=== PATIENT | female | born 1935 | race Caucasian/White ===

== ENCOUNTER 2016-06-20 09:46 | Emergency (ER) | payer MEDICARE, OTHER ==
[~2016-06-20] VITALS: Ht 152.4 cm; Wt 88.9 kg
[~2016-06-20 09:46] MED LIST changes: -CEFU250T80 PO
--- OUTSIDE RECORDS SUMMARY | 2016-06-20 09:53 | XMS REPORT | Continuity of Care Document ---
Author Author [facility] Organization [facility] Address Unknown Phone Unavailable Care Team Providers Care Bulk Mail Technician Name Role Phone HARJINDER PINEDA DO PCP Insurance Providers Payer Name Policy Number Subscriber Name Relationship Wps Medicare [id number] Buster Queen 18 Self / Same As Patient For Life [id number] Alicia Queen 01 Advance Directives Directive Response Recorded Date/Time Advance Directives Yes 07/25/14 1:38pm Health Care Power of Underwater Welder Y AURORA OLIVIA QUEEN 07/25/14 1:38pm Organ Donor Yes 07/25/14 1:38pm Resuscitation Status Full Code 07/25/14 1:38pm Problems No known problems or medical conditions. Medications Medication Dose Route Sig Days/Qty Instructions Order Date Discontinued Date Status Insulin Glargine,Hum.rec.anlog 10 Unit SQ BEDTIME 07/19/14 Active Carbidopa/Levodopa 1 Each PO TWICE A DAY 07/19/14 Active Ergocalciferol 50,000 Units PO weekly on friday07/19/14 Active Mecobalamin 5,000 Mcg PO DAILY 07/19/14 Active Gabapentin 100 Mg PO TWICE A DAY 07/19/14 08/12/14 Discontinued Hydrocodone Bit/Acetaminophen 0.5-1 Tab PO EVERY 6 HOURS For Pain 07/20/14 Discontinued Naproxen Sodium 220 Mg PO DAILY PRN PAIN 07/19/14 Active Hydrocodone Bit/Acetaminophen 0.5-1 Tab PO EVERY 4HRS PRN PAIN TAKES 1/ 2 - 1 TABLET 07/20/14 08/12/14 Discontinued [Losartan Potassium] 50 Mg PO DAILY 30 Qty 07/25/14 Active Acetaminophen/Hydrocodone Bitart 1 Each PO Q4HR PRN PRN PAIN 60 Qty 08/12/14 Discontinued Diclofenac Sod 0 Gm TOP FOUR TIMES DAILY 5 Qty 08/12/14 Active Fentanyl 12 Mcg TD Q72H 10 Qty 08/12/14 Active Acetaminophen/Hydrocodone Bitart (Hydrocodone/APAP 5/325mg) 1 Tab PO EVERY 4HRS PRN MODERATE PAIN 90 Qty 08/12/14 Active Senna 1 Ea PO DAILY@2000 60 Qty 08/12/14 Active [Trazodone Hcl] 50 Mg PO BEDTIME 30 Qty 08/12/14 Active [Gabapentin] 300 Mg PO TWICE A DAY 60 Qty 08/12/14 Active [Gabapentin] 100 Mg PO DAILY@1300 30 Qty 08/12/14 Active Lidocaine 1 Ea TOP DAILY 30 Qty 08/12/14 Active Social History Social History Problem Response Recorded Date/Time Alcohol Use Denies Use 07/25/2014 1:39pm Recreational Drug Use No 07/25/2014 1:39pm Recent Foreign Travel No 07/25/2014 1:43pm Recent Infectious Disease Exposure No 07/25/2014 1:39pm Smoking Status Never a Smoker 07/25/2014 1:38pm Query Response Start Date Stop Date Smoking Status Never a Smoker Hospital Discharge Instructions Patient Instructions Physician Instructions Prescription: RX on Chart Patient Instructions: NEEDS FOLLOW UP WITH NICK IN 10 DAYS NEEDS TO HAVE NURSING STAFF NOTIFY DR. ROMERO IF HER PAIN IS NOT CONTROLLED ON THE FENT[place] PATCH WITH HYDROCODONE. Goal: PHYSICAL THERAPY TO EVAL AND TREAT RE WEAKNESS AND BACK PAIN OCC THERAPY TO EVAL AND TREAT RE WEAKNESS, PARKINSONS Discharge Diet: ADA Diet Symptoms to Reoprt to : Appetite Changes, Constipation(Persistant), Fever Over 101 Degrees F, Pain/Pressure in Shoulder, Questions/Concerns Wound Care Comment: MEDIHONEY ON WOUND LEFT LOWER LEG - CHANGE Q2 DAYS Care Plan Patient Instructions:: NEEDS FOLLOW UP WITH NICK IN 10 DAYSNEEDS TO HAVE NURSING STAFF NOTIFY DR. ROMERO IF HER PAIN IS NOTCONTROLLED ON THE FENT[place]L PATCH WITH HYDROCODONE. Goal:: PHYSICAL THERAPY TO EVAL AND TREAT RE WEAKNESS AND BACK PAINOCC THERAPY TO EVAL AND TREAT RE WEAKNESS, PARKINSONS Plan of Care Discharge Date 08/12/14 2:00pm Disposition 03 XFER SNF Instructions/Education Provided Wound Healing and your Diet (DC) Prescriptions See Medications Section Functional Status Query Response Date Recorded Patient Orientation Person Place August 11, 2014 2:35pm Comprehension Ability Understands Concepts August 12, 2014 8:30am Allergies, Adverse Reactions, Alerts Allergen Type Severity Reaction Status Last Updated Morphine Allergy Unknown Active 12/14/07 Immunizations Name Given Type Date of Influenza Vaccine 02/24/14 Historical Tetanus Booster (TDap) Less than 5yrs Historical pneumococcal polysaccharide PPV23 07/29/14 Administered Vital Signs Acute Vital Signs Vital Response Date/Time Temperature (Fahrenheit) 97.6 degrees F (97.6 - 99.5) Temperature (Calculated Celsius) 36.31258 degrees C (36.4 - 37.5) Temperature Source Tympanic Pulse Rate (adult) 70 bpm (60 - 90) Respiratory Rate 18 bpm (12 - 24) O2 Sat by Pulse Oximetry 98 % (88 - 100) Blood Pressure 122/72 mm Hg Pain Pain Intensity 3 Weight (Pounds) 173 pounds Weight (Calculated Grams) 73891.481 gm Weight (Calculated Kilograms) 78.047556 kilograms Height 4 ft 9 in Weight 173 lb Body Mass Index 37.4 kg/m^2 Results Laboratory Results Test Name Result Units Flags Reference Collection Date/Time Result Date/ Time Comments White Blood Count 7.2 10^3/uL 4.3-11.0 08/11/2014 5:54pm 08/11/2014 6: 20pm Red Blood Count 3.88 10^6/uL L 4.35-5.85 08/11/2014 5:54pm 08/11/2014 6: 20pm Hemoglobin 11.4 G/DL L 11.5-16.0 08/11/2014 5:54pm 08/11/2014 6:20pm Hematocrit 35 % 35-52 08/11/2014 5:54pm 08/11/2014 6:20pm Mean Corpuscular Volume 90 FL 80-99 08/11/2014 5:54pm 08/11/2014 6: 20pm Mean Corpuscular Hemoglobin 29 PG 25-34 08/11/2014 5:54pm 08/11/2014 6: 20pm Mean Corpuscular Hemoglobin Concent 33 G/DL 32-36 08/11/2014 5:54pm 6:20pm Red Cell Distribution Width 14.1 % 10.0-14.5 08/11/2014 5:54pm 2014 6:20pm Platelet Count 208 10^3/uL 130-400 08/11/2014 5:54pm 08/11/2014 6:20pm Mean Platelet Volume 10.4 FL 7.4-10.4 08/11/2014 5:54pm 08/11/2014 6: 20pm Neutrophils (%) (Auto) 71 % 42-75 08/11/2014 5:54pm 08/11/2014 6:20pm Lymphocytes (%) (Auto) 19 % 12-44 08/11/2014 5:54pm 08/11/2014 6:20pm Monocytes (%) (Auto) 8 % 0-12 08/11/2014 5:pm 08/11/2014 6:20pm Eosinophils (%) (Auto) 1 % 0-10 08/11/2014 5:pm 08/11/2014 6:20pm Basophils (%) (Auto) 0 % 0-10 08/11/2014 5:pm 08/11/2014 6:20pm Neutrophils # (Auto) 5.1 X 10^3 1.8-7.8 08/11/2014 5:54pm 08/11/2014 6: 20pm Lymphocytes # (Auto) 1.4 X 10^3 1.0-4.0 08/11/2014 5:54pm 08/11/2014 6: 20pm Monocytes # (Auto) 0.6 X 10^3 0.0-1.0 08/11/2014 5:54pm 08/11/2014 6: 20pm Eosinophils # (Auto) 0.1 10^3/uL 0.0-0.3 08/11/2014 5:pm 08/11/2014 6 :20pm Basophils # (Auto) 0.0 10^3/uL 0.0-0.1 08/11/2014 5:54pm 08/11/2014 6: 20pm Sodium Level 131 MMOL/L L 135-145 08/11/2014 5:54pm 08/11/2014 6:26pm Potassium Level 4.6 MMOL/L 3.6-5.0 08/11/2014 5:54pm 08/11/2014 6:26pm Chloride Level 102 MMOL/L 98-107 08/11/2014 5:54pm 08/11/2014 6:26pm Carbon Dioxide Level 21 MMOL/L 21-32 08/11/2014 5:54pm 08/11/2014 6: 26pm Blood Urea Nitrogen 46 MG/DL H 7-18 08/11/2014 5:54pm 08/11/2014 6:26pm Creatinine 0.88 MG/DL 0.60-1.30 08/11/2014 5:54pm 08/11/2014 6:26pm BUN/Creatinine Ratio 52 08/11/2014 5:54pm 08/11/2014 6:26pm Estimat Glomerular Filtration Rate > 60 08/11/2014 5:54pm 2014 6:26pm GFR INTERPRETIVE DATA UNITS FOR ESTIMATED GFR (eGFR): mL/min/1.73 M2 REFERENCE RANGE FOR ESTIMATED GFR (eGFR) eGFR NORMAL eGFR >60 MODERATELY DECREASED eGFR 30-59 SEVERLY DECREASED eGFR 15-29 KIDNEY FAILURE <15 (OR DIALYSIS) Glucose Level 189 MG/DL H 70-105 08/11/2014 5:54pm 08/11/2014 6:26pm Glucometer 214 MG/DL H 70-110 08/12/2014 10:54am 08/12/2014 11:00am Calcium Level 8.7 MG/DL 8.5-10.1 08/11/2014 5:54pm 08/11/2014 6:26pm Total Bilirubin 0.3 MG/DL 0.1-1.0 08/11/2014 5:54pm 08/11/2014 6:26pm Alkaline Phosphatase 53 U/L 40-136 08/11/2014 5:54pm 08/11/2014 6:26pm Aspartate Amino Transf (AST/SGOT) 27 U/L 5-34 08/11/2014 5:54pm 2014 6:26pm Alanine Aminotransferase (ALT/SGPT) 30 U/L 0-55 08/11/2014 5:54pm 08/11 6:26pm Total Protein 6.6 G/DL 6.4-8.2 08/11/2014 5:54pm 08/11/2014 6:26pm Albumin 3.7 G/DL 3.2-4.5 08/11/2014 5:54pm 08/11/2014 6:26pm Procedures No known history of procedures. Encounters Encounter Location Date/Time Discharged Inpatient Via [facility] 07/25/14 11:49am Discharged Recurring Via [facility] 07/15/14 8:08am
--- NOTE | 2016-06-20 11:00 | ED General ---
General Chief Complaint: Trauma-Non Activation Stated Complaint: FALL/LEFT HIP PAIN ELEV BP CONFUSION Nursing Triage Note: SEE TRIAGE NOTE Nursing Sepsis Screen: No Definite Risk Source of Information: Patient, Family Exam Limitations: No Limitations History of Present Illness Time Seen by Provider: 10:57 Initial Comments To ER with reports of a fall at 2 a.m. this morning. She was sitting on the toilet when she reached to grab toilet paper and she fell. She did not hit her head but she complains of right shoulder and left hip pain. PMP CERTIFIED PROJECT MANAGER became concerned when patient had elevated blood pressure and patient stated to her that she couldn't form words. She had no other neurologic deficits such as unilateral weakness and at this time staff reports persistent difficulty with forming words though I do not appreciate this myself. They state that she is sometimes confused and "sometimes forgetful" . However, she has persistent pain to the right shoulder left hip. Timing/Duration: 12 Hours Severity: Moderate Associated Systoms: No Headaches, No Malaise, No Nausea/Vomiting Allergies and Home Medications Allergies Coded Allergies: morphine (Verified Allergy, Unknown, 12/14/07) Home Medications 50 MG TAB #30 50 MG PO DAILY Prescribed by: LORI ISLAS on 07/25/14937 50 MG TAB #30 50 MG PO HS Prescribed by: LORI ISLAS on 08/12/14932 300 MG CAP #60 300 MG PO BID Prescribed by: LORI ISLAS on 08/12/14932 100 MG CAP #30 100 MG PO DAILY@1300 Prescribed by: LORI ISLAS on 08/12/14932 Carbidopa/Levodopa 1 Each Tablet 1 EACH PO BID (Reported) Diclofenac Sod 100 Gm Gel #5 0 GM TOP QID Prescribed by: LORI ISLAS on 08/12/14932 Ergocalciferol 50,000 Units Cap 50,000 UNITS PO weekly on friday (Reported) Fentanyl 12 Mcg Patch #10 12 MCG TD Q72H Prescribed by: LORI ISLAS on 08/12/14932 Hydrocodone Bit/Acetaminophen 1 Tab Tab #90 1 TAB PO Q4H PRN PRN MODERATE PAIN Prescribed by: LORI ISLAS on 08/12/14932 Insulin Glargine,Hum.rec.anlog 100 Unit/1 Ml Vial 10 UNIT SQ HS (Reported) Lidocaine 1 Ea Patch #30 1 EA TOP DAILY Prescribed by: LORI ISLAS on 08/12/14932 Mecobalamin 5,000 Mcg Tab.rapdis 5,000 MCG PO DAILY (Reported) Naproxen Sodium 220 Mg Tablet 220 MG PO DAILY PRN PRN PAIN (Reported) Senna 1 Ea Tablet #60 1 EA PO DAILY@1999 Prescribed by: LORI ISLAS on 08/12/1433 Constitutional: see HPI EENTM: see HPI Respiratory: no symptoms reported Cardiovascular: no symptoms reported Genitourinary: no symptoms reported Musculoskeletal: see HPI joint pain Skin: no symptoms reported Psychiatric/Neurological: See HPI Other (dysphagia) Hematologic/Lymphatic: No Symptoms Reported Immunological/Allergic: no symptoms reported Past Ferheif-Quuzog-Cslhcq Hx Patient Social History Alcohol Use: Denies Use Recreational Drug Use: Yes Smoking Status: Never a Smoker Recent Foreign Travel: No Contact w/Someone Who Travel: No Recent Infectious Disease Expo: No Recent Hopitalizations: No Immunizations Up To Date Tetanus Booster (TDap): Less than 5yrs Date of Influenza Vaccine: Feb 24, 2014 Seasonal Allergies Seasonal Allergies: No Surgeries HX Surgeries: Yes (Left Mastectomy, Left knee replacement x 2, Left knee repairs) Surgeries: Orthopedic Respiratory Hx Respiratory Disorders: No Cardiovascular Hx Cardiac Disorders: Yes Neurological Hx Neurological Disorders: Yes (Benign tremor) Reproductive System Hx Reproductive Disorders: No Genitourinary Hx Genitourinary Disorders: Yes (Urine incontinance, Renal insufficiency) Gastrointestinal Hx Gastrointestinal Disorders: No Musculoskeletal Hx Musculoskeletal Disorders: Yes Musculoskeletal Disorders: Arthritis, Chronic Back Pain Endocrine Hx Endocrine Disorders: Yes ( DM Type II) Endocrine Disorders: Diabetes, Insulin dep HEENT HX ENT Disorders: Yes (Cataract removal left eye) HEENT Disorders: Cataract Hearing Impairment: Denies Cancer Hx Cancer: Yes (left breast mastectomy) Psychosocial Hx Psychiatric Problems: No Integumentary HX Skin/Integumentary Disorder: Yes (lt calf venous insufficiency) Blood Transfusions Hx Blood Disorders: No Adverse Reaction to a Blood Tr: No Family Medical History Family Medial History: Cardiovascular disease G8 BROTHER G8 BROTHER Diabetes mellitus 19 FATHER G8 BROTHER G8 BROTHER G8 SISTER FH: cancer G8 BROTHER Myocardial infarction 19 MOTHER Physical Exam Vital Signs Vital Sign - Last 12Hours 06/20/16 10:00 Temp 97.0 Pulse 81 Resp 18 B/P 151/66 Pulse Ox 96 O2 Delivery Room Air Capillary Refill : Less Than 3 Seconds General Appearance: No Apparent Distress WD/WN Other (alert, smiling, talkative and answers questions appropriately. She does not know the month but staff states that is normal for her. She can recite her birthday and the year and where she is at.) Eyes: Bilateral Eye EOMI, Bilateral Eye Normal Inspection, Bilateral Eye PERRL HEENT: PERRL/EOMI TMs Normal Neck: Full Range of Motion Normal Inspection Respiratory: Normal Breath Sounds No Accessory Muscle Use No Respiratory Distress Cardiovascular: Regular Rate, Rhythm Normal Peripheral Pulses Gastrointestinal: Normal Bowel Sounds Non Tender Soft Neurologic/Psychiatric: Alert No Motor/Sensory Deficits Other (I do not appreciate any dysphasia, she speaks clearly. She states that she is at the Emergency room but does not know the hospital stating "ill tell you in a minute ") Skin: Normal Color Warm/Dry Progress/Results/Core Measures Results/Orders Lab Results Laboratory Tests Test 06/20/16 09:20 06/20/16 11:35 Range/Units Urine Amorphous Sediment MOD NOMI URATES H /LPF Urine Bacteria FEW H /HPF Urine Bilirubin NEGATIVE NEGATIVE Urine Casts PRESENT /LPF Urine Clarity SLIGHTLY CLOUDY Urine Coarse Granular Casts 25-50 H /LPF Urine Color YELLOW Urine Crystals NONE /LPF Urine Culture Indicated YES Urine Glucose (UA) 2+ H NEGATIVE Urine Ketones 1+ H NEGATIVE Urine Leukocyte Esterase 3+ H NEGATIVE Urine Mucus NEGATIVE /LPF Urine Nitrite NEGATIVE NEGATIVE Urine Other RARE TRANS EPI /HPF Urine Protein 3+ H NEGATIVE Urine RBC NONE /HPF Urine RBC (Auto) 5+ H NEGATIVE Urine Specific [place] 1.020 1.016-1.022 Urine Squamous Epithelial Cells 5-10 /HPF Urine Urobilinogen NORMAL NORMAL MG/DL Urine WBC 25-50 H /HPF Urine pH 5 5-9 Alanine Aminotransferase (ALT/SGPT) 16 0-55 U/L Albumin 3.6 3.2-4.5 G/DL Alkaline Phosphatase 127 40-136 U/L Anion Gap 9 5-14 MMOL/L Aspartate Amino Transf (AST/SGOT) 190 H 5-34 U/L BUN/Creatinine Ratio 22 Basophils # (Auto) 0.0 0.0-0.1 10^3/uL Basophils (%) (Auto) 1 0-10 % Blood Urea Nitrogen 38 H 7-18 MG/DL Calcium Level 8.8 8.5-10.1 MG/DL Carbon Dioxide Level 25 21-32 MMOL/L Chloride Level 102 98-107 MMOL/L Creatinine 1.76 H 0.60-1.30 MG/DL Eosinophils # (Auto) 0.1 0.0-0.3 10^3/uL Eosinophils (%) (Auto) 1 0-10 % Estimat Glomerular Filtration Rate 28 Glucose Level 155 H 70-105 MG/DL Hematocrit 39 35-52 % Hemoglobin 12.6 11.5-16.0 G/DL Lymphocytes # (Auto) 1.8 1.0-4.0 X 10^3 Lymphocytes (%) (Auto) 21 12-44 % Mean Corpuscular Hemoglobin 29 25-34 PG Mean Corpuscular Hemoglobin Concent 33 32-36 G/DL Mean Corpuscular Volume 89 80-99 FL Mean Platelet Volume 11.1 H 7.4-10.4 FL Monocytes # (Auto) 0.8 0.0-1.0 X 10^3 Monocytes (%) (Auto) 9 0-12 % Neutrophils # (Auto) 6.1 1.8-7.8 X 10^3 Neutrophils (%) (Auto) 68 42-75 % Platelet Count 183 130-400 10^3/uL Potassium Level 4.7 3.6-5.0 MMOL/L Red Blood Count 4.34 L 4.35-5.85 10^6/uL Red Cell Distribution Width 14.2 10.0-14.5 % Sodium Level 136 135-145 MMOL/L Total Bilirubin 0.4 0.1-1.0 MG/DL Total Protein 6.7 6.4-8.2 G/DL White Blood Count 8.9 4.3-11.0 10^3/uL My Orders Orders-SHIRA OAKES CLINICAL COURIER Cbc With Automated Diff (06/20/16 10:57) Comprehensive Metabolic Panel (06/20/16 10:57) Ua Culture If Indicated (06/20/16 10:57) Ct Head Wo (06/20/16 10:57) Shoulder, Right, 3 Views (06/20/16 11:08) Hip, Left, 2 Views (06/20/16 11:08) Urine Culture (06/20/16 09:20) Ns Iv 500 Ml (Sodium Chloride 0.9%) (06/20/16 12:15) Ceftriaxone Injection (Rocephin Injectio (06/20/16 12:15) Vital Signs/I&O Vital Sign - Last 12Hours 06/20/16 10:00 Temp 97.0 Pulse 81 Resp 18 B/P 151/66 Pulse Ox 96 O2 Delivery Room Air Blood Pressure Mean: 94 Departure Impression Impression: Primary Impression: Urinary tract infection Additional Impression: Acute renal insufficiency Disposition: HOME, SELF-CARE Condition: Stable Departure-Patient Inst. Decision time for Depature: 12:27 Referrals: LORI ISLAS MD (PCP/Family) Primary Care Physician Patient Instructions: Dehydration, Adult (DC), Urinary Tract Infection, Adult ( DC) Add. Discharge Instructions: 1. Antibiotics as directed 2. Follow-up with Dr. Islas next week All discharge instructions reviewed with patient and/or family. Voiced understanding. Scripts Cefuroxime Axetil (Cefuroxime)250 Mg [id number] Mg PO BID #10 TAB Prov:SHIRA OAKES APRN 06/20/16 Copy Copies To 1: LORI ISLAS MD, PETER J APRN Jun 20, 2016 10:59
[2016-06-20 11:46] LABS: BASOPHILS % (AUTO) 1 % (0-10); EOSINOPHILS # (AUTO) 0.1 10^3/uL (0.0-0.3); EOSINOPHILS % (AUTO) 1 % (0-10); LYMPHOCYTES # (AUTO) 1.8 X 10^3 (1.0-4.0); LYMPHOCYTES % (AUTO) 21 % (12-44); MEAN CORPUSCULAR HEMOGLOBIN 29 PG (25-34); MEAN CORPUSCULAR HGB CONC 33 G/DL (32-36); MEAN CORPUSCULAR VOLUME 89 FL (80-99); MEAN PLATELET VOLUME 11.1 FL (7.4-10.4); MONOCYTES # (AUTO) 0.8 X 10^3 (0.0-1.0); MONOCYTES % (AUTO) 9 % (0-12); NEUTROPHILS # (AUTO) 6.1 X 10^3 (1.8-7.8); NEUTROPHILS % (AUTO) 68 % (42-75); PLATELET COUNT 183 10^3/uL (130-400); RED BLOOD COUNT 4.34 10^6/uL (4.35-5.85); RED CELL DISTRIBUTION WIDTH 14.2 % (10.0-14.5); WHITE BLOOD COUNT 8.9 10^3/uL (4.3-11.0)
[2016-06-20 11:55] LABS: BILIRUBIN,URINE NEGATIVE (NEGATIVE); KETONES,URINE 1+ (NEGATIVE); LEUKOCYTE ESTERASE ,URINE 3+ (NEGATIVE); NITRITE,URINE NEGATIVE (NEGATIVE); PH,URINE 5 (5-9); PROTEIN,URINE 3+ (NEGATIVE); UROBILINOGEN,URINE NORMAL (NORMAL)
[2016-06-20 12:03] LABS: WBC,URINE 25-50 /HPF
[2016-06-20 12:04] LABS: ALBUMIN 3.6 G/DL (3.2-4.5); BILIRUBIN,TOTAL 0.4 MG/DL (0.1-1.0); CALCIUM 8.8 MG/DL (8.5-10.1); CREATININE SERUM 1.76 MG/DL (0.60-1.30); POTASSIUM 4.7 MMOL/L (3.6-5.0); TOTAL PROTEIN 6.7 G/DL (6.4-8.2)
[2016-06-20] MEDS ORDERED: NS IV 500 ML 500 ML IV SCH (12:15)
[2016-06-20] MEDS ORDERED: cefTRIAXone INJECTION 1,000 MG in NS (IVPB) 50 ML IV ONE (12:15)
[2016-06-20] MEDS ORDERED: CEFU250T80 PO (12:29)
--- NOTE | 2016-06-20 12:30 | Diagnostic Imaging Report ---
EXAMINATION: Left hip INDICATION: Fell AP and lateral views were obtained. There is no fracture, dislocation or acute bony abnormality evident. 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 The soft tissues are unremarkable. IMPRESSION: There is no evidence for an acute bony abnormality. Dictated by: Dictated on workstation # [id number]
--- NOTE | 2016-06-20 12:31 | Diagnostic Imaging Report ---
EXAMINATION: Right shoulder INDICATION: Injury shoulder pain 3 views were obtained. There is no fracture, dislocation or acute bony abnormality is evident. There is mild degenerative disease of the glenohumeral joint and at least moderate degenerative disease of the acromioclavicular joint. The soft tissues are unremarkable. IMPRESSION: There is no evidence for an acute bony abnormality. Dictated by: Dictated on workstation # [id number]
--- NOTE | 2016-06-20 12:35 | Diagnostic Imaging Report ---
PROCEDURE: CT head without contrast. TECHNIQUE: Multiple contiguous axial images were obtained through the brain without the use of intravenous contrast. INDICATION: Fell, headache. Contiguous axial sections were taken through the skull. There are no prior studies available for comparison. There is no mass, shift of midline or hemorrhage to suggest an acute intracranial abnormality. The ventricles are prominent. The size of ventricles may be related to the underlying cortical atrophy alone. There are also areas of diminished density in the periventricular white matter bilaterally. These findings are nonspecific but could be secondary to encephalomalacia from microvascular ischemia. These findings could also contribute to the size of ventricles. It is unlikely that the ventricular sizes related to normal pressure hydrocephalus. Even so, if there is clinical concern regarding normal pressure hydrocephalus, then a nuclear medicine cisternogram would be recommended for further study. The bone windows show no evidence for a fracture or for a destructive lesion. The orbits are symmetrical and within normal limits. The sinuses are generally clear. IMPRESSION: 1. There is no evidence for an acute intracranial abnormality. 2. The ventricles are prominent. The size of ventricles is more likely due to the underlying cortical atrophy and periventricular encephalomalacia than to normal pressure hydrocephalus. Additional considerations as above. 3. These results were discussed with Vadim Magallon APRN in the ER. Dictated by: Dictated on workstation # [id number]
[2016-06-20 14:26] VITALS: BP 176/82
== END 2016-06-20 14:40 | disposition home or self-care (01) ==
LOC: EDUNIT# 09:46 → ER 09:49
DX: N39.0 Urinary tract infection, site not specified (principal); N28.9 Disorder of kidney and ureter, unspecified; S79.912A Unspecified injury of left hip, initial encounter; S49.91XA Unspecified injury of right shoulder and upper arm, initial encounter; E11.9 Type 2 diabetes mellitus without complications; Z79.4 Long term (current) use of insulin; Z85.3 Personal history of malignant neoplasm of breast; Z90.12 Acquired absence of left breast and nipple; W18.11XA Fall from or off toilet without subsequent striking against object, initial encounter; Y92.121 Bathroom in nursing home as the place of occurrence of the external cause; Y99.8 Other external cause status
CPT/HCPCS: 36415; 70450; 73030; 73502; 80053; 81000; 85025; 87088; 96361; 96374

== ENCOUNTER → 2016-06-20 | Outpatient (CLI) | payer MEDICARE, OTHER ==
[~2016-06-20] MED LIST: ACHD5005 PO; CARB1TAB6 PO; CEFU250T80 PO; D50KC PO; DICL100G13 TOP; FEN12TD TD; GABA-486 PO; Gabapentin PO; HYDR-3714 PO; HYDR-3720 PO; INSU100V6 SQ; LD5PT TOP; Losartan Potassium PO; MECO5000 PO; NAPR220T76 PO; SENN1TAB76 PO; Trazodone Hcl PO
--- OUTSIDE RECORDS SUMMARY | 2016-06-21 22:43 | XMS REPORT | Continuity of Care Document ---
Author Author [facility] Organization [facility] Address Unknown Phone Unavailable Care Team Providers Care Crm Business Analyst Name Role Phone HARJINDER PINEDA DO PCP Insurance Providers Payer Name Policy Number Subscriber Name Relationship Wps Medicare [id number] Buster Queen 18 Self / Same As Patient For Life [id number] Alicia Queen 01 Advance Directives Directive Response Recorded Date/Time Advance Directives Yes 07/25/14 1:38pm Health Care Power of Word Processing Operator Y AURORA OLIVIA QUEEN 07/25/14 1:38pm Organ [...] F (97.6 - 99.5) Temperature (Calculated Celsius) 36.99214 degrees C (36.4 - 37.5) Temperature Source Tympanic Pulse Rate (adult) 70 bpm (60 - 90) Respiratory Rate 18 bpm (12 - 24) O2 Sat by Pulse Oximetry 98 % (88 - 100) Blood Pressure 122/72 mm Hg Pain Pain Intensity 3 Weight (Pounds) 173 pounds Weight (Calculated Grams) 20304.481 gm Weight (Calculated Kilograms) 78.022919 kilograms Height 4 ft 9 in Weight [...] Encounters Encounter Location Date/Time Discharged Inpatient Via [facility] 07/25/14 11:49am Discharged Recurring Via [facility] 07/15/14 8:08am
== END ==
LOC: LABNPT 11:23
PROVIDERS: ATTEND Nurse Practitioner Family
DX: E55.9 Vitamin D deficiency, unspecified (principal)
CPT/HCPCS: 36415; 82306

== ENCOUNTER → 2016-11-13 | Outpatient (CLI) | payer MEDICARE, OTHER ==
[~2016-11-13] MED LIST changes: +CEFU250T80 PO
[2016-11-13 12:00] LABS: BILIRUBIN,URINE NEGATIVE (NEGATIVE); KETONES,URINE NEGATIVE (NEGATIVE); LEUKOCYTE ESTERASE ,URINE 2+ (NEGATIVE); NITRITE,URINE NEGATIVE (NEGATIVE); PH,URINE 5 (5-9); PROTEIN,URINE NEGATIVE (NEGATIVE); UROBILINOGEN,URINE NORMAL (NORMAL)
[2016-11-13 12:10] LABS: BASOPHILS % (AUTO) 1 % (0-10); EOSINOPHILS # (AUTO) 0.2 10^3/uL (0.0-0.3); EOSINOPHILS % (AUTO) 4 % (0-10); LYMPHOCYTES # (AUTO) 1.7 X 10^3 (1.0-4.0); LYMPHOCYTES % (AUTO) 26 % (12-44); MEAN CORPUSCULAR HEMOGLOBIN 29 PG (25-34); MEAN CORPUSCULAR HGB CONC 32 G/DL (32-36); MEAN CORPUSCULAR VOLUME 91 FL (80-99); MEAN PLATELET VOLUME 10.9 FL (7.4-10.4); MONOCYTES # (AUTO) 0.5 X 10^3 (0.0-1.0); MONOCYTES % (AUTO) 8 % (0-12); NEUTROPHILS # (AUTO) 3.9 X 10^3 (1.8-7.8); NEUTROPHILS % (AUTO) 62 % (42-75); PLATELET COUNT 163 10^3/uL (130-400); RED BLOOD COUNT 4.44 10^6/uL (4.35-5.85); WHITE BLOOD COUNT 6.3 10^3/uL (4.3-11.0)
[2016-11-13 12:30] LABS: ALBUMIN 3.8 GM/DL (3.2-4.5); BILIRUBIN,TOTAL 0.5 MG/DL (0.1-1.0); CALCIUM 8.8 MG/DL (8.5-10.1); CREATININE SERUM 0.97 MG/DL (0.60-1.30); POTASSIUM 4.6 MMOL/L (3.6-5.0); TOTAL PROTEIN 6.9 GM/DL (6.4-8.2)
--- NOTE | 2016-11-13 19:06 | Diagnostic Imaging Report ---
EXAMINATION: Three views of the left ankle. INDICATION: Left ankle pain. FINDINGS: There is no fracture, dislocation, or radiopaque foreign body. The ankle mortise is normal in configuration. Calcaneal spurs are seen. There is diffuse [id number] soft tissue swelling around the ankle. IMPRESSION: No acute osseous abnormality. Dictated by: Dictated on workstation # [id number]
== END ==
LOC: RAD 11:15
PROVIDERS: ATTEND Nurse Practitioner Family
DX: M25.572 Pain in left ankle and joints of left foot (principal)
CPT/HCPCS: 36415; 73610; 80053; 81000; 85025; 87088

== ENCOUNTER 2017-07-29 15:38 | Observation (INO) | payer MEDICARE, OTHER ==
[~2017-07-29] VITALS: Ht 154.9 cm; Wt 77.1 kg
--- NOTE | 2017-07-29 16:13 | ED Fall/Injury ---
General Chief Complaint: Trauma-Non Activation Stated Complaint: FALL Nursing Triage Note: Pt has fallen twice today. With 2nd fall she c/o left hip pain. Nursing staff reports gradual decline in mentation the last 2 weeks. Source: patient Exam Limitations: no limitations History of Present Illness Date Seen by Provider: Jul 29, 2017 Time Seen by Provider: 15:37 Initial Comments Here with report of 2 falls [facility]. Apparently has become more confused recently. She was supposed to come over for CT and labs when she had a second fall. This prompted EMS call for ER evaluation. Does complain of left hip pain but there is no shortening or rotation currently. Patient is not sure but believes she probably did hit her head. Reports that she's had multiple and frequent urinary tract infections. Denies nausea and vomiting. Location Injury Occurred: prison Occurred: this morning Severity: moderate Injuries/Pain Location: pelvis, lower extremity Context: lightheaded, lost balance Loss of Consciousness: no loss of consciousness Modifying Factors: Improves With Immobilization, Worse With Movement, Improves With Rest Associated Symptoms (Fall): No Abdominal Pain, No Chest Pain, Confusion, No Headache, Lightheadedness, No Nausea/Vomiting, No Neck Pain, No Shortness of Air , Trouble Walking Allergies and Home Medications Allergies Coded Allergies: morphine (Verified Allergy, Unknown, 12/14/07) Home Medications Carbidopa/Levodopa 1 Each Tablet, 1 EACH PO BID, (Reported) Cefuroxime Axetil 250 Mg Tablet, 250 MG PO BID Prescribed by: SHIRA OAKES on 06/20/16 1229 Diclofenac Sod 100 Gm Gel, 0 GM TOP QID Prescribed by: LORI ISLAS on 08/12/14932 Ergocalciferol 50,000 Units Cap, 50,000 UNITS PO weekly on friday, (Reported) Fentanyl 12 Mcg Patch, 12 MCG TD Q72H Prescribed by: LORI ISLAS on 08/12/14932 Hydrocodone Bit/Acetaminophen 1 Tab Tab, 1 TAB PO Q4H PRN for MODERATE PAIN Prescribed by: LORI ISLAS on 08/12/14932 Insulin Glargine,Hum.rec.anlog 100 Unit/1 Ml Vial, 10 UNIT SQ HS, (Reported) Lidocaine 1 Ea Patch, 1 EA TOP DAILY Prescribed by: LORI ISLAS on 08/12/14932 Mecobalamin 5,000 Mcg Tab.rapdis, 5,000 MCG PO DAILY, (Reported) Naproxen Sodium 220 Mg Tablet, 220 MG PO DAILY PRN for PAIN, (Reported) Senna 1 Ea Tablet, 1 EA PO DAILY@1999 Prescribed by: LORI ISLAS on 08/12/14932 [Gabapentin] 300 MG CAP, 300 MG PO BID Prescribed by: LORI ISLAS on 08/12/14932 [Gabapentin] 100 MG CAP, 100 MG PO DAILY@1300 Prescribed by: LORI ISLAS on 08/12/14932 [Losartan Potassium] 50 MG TAB, 50 MG PO DAILY Prescribed by: LORI ISLAS on 07/25/14937 [Trazodone Hcl] 50 MG TAB, 50 MG PO HS Prescribed by: LORI ISLAS on 08/12/14932 Patient Home Medication List Home Medication List Reviewed: Yes Constitutional: see HPI, No chills, No fever Eyes: No Symptoms Reported Ears, Nose, Mouth, Throat: no symptoms reported Respiratory: No cough, No short of breath Cardiovascular: No palpitations Gastrointestinal: No abdominal pain, No nausea, No vomiting Genitourinary: see HPI, No hematuria, No pain : No Musculoskeletal: joint pain, muscle pain, muscle stiffness Skin: see HPI, change in color, No lesions Psychiatric/Neurological: Denies Headache, Weakness All Other Systems Reviewed Negative Unless Noted: Yes Past Ofgblrc-Ldviuv-Rjdltf Hx Patient Social History Alcohol Use: Denies Use Recreational Drug Use: No Smoking Status: Never a Smoker Recent Foreign Travel: No Contact w/Someone Who Travel: No Recent Infectious Disease Expo: No Recent Hopitalizations: No Immunizations Up To Date Tetanus Booster (TDap): Less than 5yrs Date of Influenza Vaccine: Feb 24, 2014 Seasonal Allergies Seasonal Allergies: No Surgeries History of Surgeries: Yes (Left Mastectomy, Left knee replacement x 2, Left knee repairs) Surgeries: Orthopedic Respiratory History of Respiratory Disorde: No Cardiovascular History of Cardiac Disorders: Yes Neurological History of Neurological Disord: Yes (Benign tremor) Reproductive System Hx Reproductive Disorders: No Gastrointestinal History of Gastrointestinal Di: No Musculoskeletal History of Musculoskeletal Dis: Yes Musculoskeletal Disorders: Arthritis, Chronic Back Pain Endocrine History of Endocrine Disorders: Yes ( DM Type II) Endocrine Disorders: Diabetes, Insulin dep HEENT HEENT Disorders: Cataract Hearing Impairment: Denies Cancer History of Cancer: Yes (left breast mastectomy) Psychosocial History of Psychiatric Problem: No Integumentary History of Skin or Integumenta: Yes (lt calf venous insufficiency) Blood Transfusions History of Blood Disorders: No Adverse Reaction to a Blood Tr: No Reviewed Nursing Assessment Reviewed/Agree w Nursing PMH: Yes Family Medical History Family Medial History: Cardiovascular disease G8 BROTHER G8 BROTHER Diabetes mellitus 19 FATHER G8 BROTHER G8 BROTHER G8 SISTER FH: cancer G8 BROTHER Myocardial infarction 19 MOTHER Physical Exam Vital Signs Vital Signs - First Documented 07/29/17 07/29/17 15:48 15:51 Temp 98.0 Pulse 70 Resp 16 B/P (MAP) 167/66 (99) Pulse Ox 98 O2 Delivery Room Air Capillary Refill : Less Than 3 Seconds General Appearance: WD/WN, no apparent distress HEENT: PERRL/EOMI, pharynx normal Neck: full range of motion, supple Cardiovascular: regular rate, rhythm, no murmur Respiratory: lungs clear, normal breath sounds Peripheral Pulses: 2+ Dorsalis Pedis (R), 2+ Left Dors-Pedis (L), 2+ Radial Pulses (R), 2+ Radial Pulses (L) Gastrointestinal: non tender, soft Back: normal inspection, no CVA tenderness, no vertebral tenderness Extremities: pelvis stable, other (tender in the posterior left hip with movement of the left leg.) Neurologic/Psychiatric: normal mood/affect Skin: warm/dry, ecchymosis (ecchymosis noted to the posterior left hip.) Omari Coma Score Best Eye Response: (4) Open Spontaneously Best Verbal Response: (5) Oriented Best Motor Response: (6) Obeys Commands Progress/Results/Core Measures Results/Orders Lab Results Laboratory Tests Test 07/29/17 16:51 07/29/17 17:30 Range/Units White Blood Count 8.3 4.3-11.0 10^3/uL Red Blood Count 4.26 L 4.35-5.85 10^6/uL Hemoglobin 12.4 11.5-16.0 G/DL Hematocrit 39 35-52 % Mean Corpuscular Volume 92 80-99 FL Mean Corpuscular Hemoglobin 29 25-34 PG Mean Corpuscular Hemoglobin Concent 32 32-36 G/DL Red Cell Distribution Width 13.5 10.0-14.5 % Platelet Count 178 130-400 10^3/uL Mean Platelet Volume 11.0 H 7.4-10.4 FL Neutrophils (%) (Auto) 71 42-75 % Lymphocytes (%) (Auto) 17 12-44 % Monocytes (%) (Auto) 10 0-12 % Eosinophils (%) (Auto) 2 0-10 % Basophils (%) (Auto) 0 0-10 % Neutrophils # (Auto) 5.9 1.8-7.8 X 10^3 Lymphocytes # (Auto) 1.4 1.0-4.0 X 10^3 Monocytes # (Auto) 0.8 0.0-1.0 X 10^3 Eosinophils # (Auto) 0.2 0.0-0.3 10^3/uL Basophils # (Auto) 0.0 0.0-0.1 10^3/uL Sodium Level 134 L 135-145 MMOL/L Potassium Level 4.0 3.6-5.0 MMOL/L Chloride Level 101 98-107 MMOL/L Carbon Dioxide Level 20 L 21-32 MMOL/L Anion Gap 13 5-14 MMOL/L Blood Urea Nitrogen 30 H 7-18 MG/DL Creatinine 1.13 0.60-1.30 MG/DL Estimat Glomerular Filtration Rate 46 BUN/Creatinine Ratio 27 Glucose Level 125 H 70-105 MG/DL Calcium Level 8.9 8.5-10.1 MG/DL Total Bilirubin 0.4 0.1-1.0 MG/DL Aspartate Amino Transf (AST/SGOT) 27 5-34 U/L Alanine Aminotransferase (ALT/SGPT) 7 0-55 U/L Alkaline Phosphatase 88 40-136 U/L Total Protein 6.8 6.4-8.2 GM/DL Albumin 3.9 3.2-4.5 GM/DL Urine Color YELLOW Urine Clarity CLEAR Urine pH 6.5 5-9 Urine Specific [place] 1.010 L 1.016-1.022 Urine Protein NEGATIVE NEGATIVE Urine Glucose (UA) NEGATIVE NEGATIVE Urine Ketones NEGATIVE NEGATIVE Urine Nitrite NEGATIVE NEGATIVE Urine Bilirubin NEGATIVE NEGATIVE Urine Urobilinogen NORMAL NORMAL MG/DL Urine Leukocyte Esterase 1+ H NEGATIVE Urine RBC (Auto) 1+ H NEGATIVE Urine RBC 0-2 /HPF Urine WBC 2-5 /HPF Urine Squamous Epithelial Cells 0-2 /HPF Urine Crystals NONE /LPF Urine Bacteria FEW H /HPF Urine Casts NONE /LPF Urine Mucus NEGATIVE /LPF Urine Culture Indicated NO My Orders Orders - HARJINDER OCASIO MD Ct Head Wo (07/29/17 15:53) Cbc With Automated Diff (07/29/17 15:53) Comprehensive Metabolic Panel (07/29/17 15:53) Ua Culture If Indicated (07/29/17 15:53) Chest 1 View, Ap/Pa Only (07/29/17 15:53) Pelvis With Left Hip 2-3 Views (07/29/17 15:53) Saline Lock/Iv-Start (07/29/17 15:53) Cho 60g/M 3snack (16-2000 Nicho) (07/29/17 Dinner) Vital Signs/I&O Vital Sign - Last 12Hours 07/29/17 07/29/17 15:48 15:51 Temp 98.0 98.0 Pulse 70 70 Resp 16 16 B/P (MAP) 167/66 (99) 167/66 (99) Pulse Ox 98 O2 Delivery Room Air Room Air Blood Pressure Mean: 99 Progress Note : Progress Note Seen and evaluated. Labs, CT head, x-ray left hip and pelvis ordered. Monitor patient. 1840: Labs and radiology reviewed. I family. There are concerns about increasing sedation and some this may be medication effect. I have discussed the case with Dr. Islas. She agrees that there is concerns about medication effect and the multiple falls at the patient has had. No indication of infectious etiology currently in CT is negative. She would like her admitted for observation for further evaluation of her medications and to monitor the patient. Admit, observation status. Patient and family agree with plan. Diagnostic Imaging Diagonstic Imaging: CT Plain Films/CT/US/NM/MRI: head Comments VIA [facility], [facility]. [place], [place] NAME: BUSTER QUEEN [facility] REC#: [id number] PT STATUS: REG ER : 1935 PHYSICIAN: HARJINDER OCASIO MD ADMIT DATE: 07/29/17/ER Draft Date of Exam:07/29/17 CT HEAD WO PROCEDURE: CT head without contrast. TECHNIQUE: Multiple contiguous axial images were obtained through the brain without the use of intravenous contrast. INDICATION: Fall with possible head injury. COMPARISON: Comparison is made to study of 06/20/2006. FINDINGS: Ventricles and sulci remain diffusely prominent. No hemorrhage is identified. There is no abnormal mass effect or shift of midline structures. Subcutaneous nodule in the left parietal scalp is unchanged. There is also unchanged opacification of right ethmoid air cell. Atherosclerotic calcification is seen within distal internal carotid and vertebral arteries. IMPRESSION: No acute abnormality or significant change is detected. Dictated on workstation # [id number] Dict: 07/29/17 1623 Trans: 07/29/17 1626 [id number] Interpreted by: ALINA JONES MD Electronically signed by: Diagonstic Imaging: Xray Plain Films/CT/US/NM/MRI: chest Comments NAME: BUSTER QUEEN MED REC#: [id number] PT STATUS: REG ER : 1935 PHYSICIAN: HARJINDER OCASIO MD ADMIT DATE: 07/29/17/ER Signed Date of Exam: 07/29/17 CHEST 1 VIEW, AP/PA ONLY INDICATION: Fall. COMPARISON: 03/18/2016. Portable chest. FINDINGS: Left mastectomy noted. The heart is enlarged. The pulmonary vasculature does appear slightly prominent today. There are no consolidated infiltrates. No pleural effusion. No pneumothorax. No rib fractures demonstrated. IMPRESSION: Development of mild cardiomegaly and mild pulmonary venous congestion when compared with previous exam. Dictated by: Dictated on workstation # [id number] Dict: 07/29/17 1629 Trans: 07/29/17 1648 Interpreted by: VIVEK THOMSON MD Electronically signed by: VIVEK THOMSON MD 07/29/17 1648 Diagonstic Imaging: Xray Plain Films/CT/US/NM/MRI: pelvis, hip Comments NAME: BUSTER QUEEN MED REC#: [id number] PT STATUS: REG ER : 1935 PHYSICIAN: HARJINDER OCASIO MD ADMIT DATE: 07/29/17/ER Signed Date of Exam: 07/29/17 PELVIS WITH LEFT HIP 2-3 VIEWS INDICATION: Fall. Left hip pain. COMPARISON: 06/20/2016. FINDINGS: An AP pelvis and left hip films were performed. The bony pelvis is intact. The SI joints are symmetrical. No fractures are demonstrated. The femoral heads are in normal articulation bilaterally. Moderate degenerative change is noted of the hips with some hypertrophic change along the femoral head. No fractures are demonstrated with AP and crosstable views of the left hip. IMPRESSION: 1. No acute bony abnormality is demonstrated. 2. 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 Dictated by: Dictated on workstation # [id number] Dict: 07/29/17 1631 Trans: 07/29/17 1648 Interpreted by: VIVEK THOMSON MD Electronically signed by: VIVEK THOMSON MD 07/29/17 1648 Departure Communication (Admissions) Time/Spoke to Admitting Phy: 18:40 Impression Impression: Primary Impression: Left hip pain Additional Impressions: excessive drowsiness Multiple falls Disposition: ADMITTED INPATIENT Condition: Stable Admissions Decision to Admit Reason: Admit from ER (General) Decision to Admit/Date: Jul 29, 2017 Time/Decision to Admit Time: 18:40 Departure-Patient Inst. Referrals: LORI ISLAS MD (PCP/Family) Primary Care Physician HARJINDER OCASIO MD Jul 29, 2017 16:13
--- NOTE | 2017-07-29 16:27 | Diagnostic Imaging Report ---
PROCEDURE: CT head without contrast. TECHNIQUE: Multiple contiguous axial images were obtained through the brain without the use of intravenous contrast. INDICATION: Fall with possible head injury. COMPARISON: Comparison is made to study of 06/20/2006. FINDINGS: Ventricles and sulci remain diffusely prominent. No hemorrhage is identified. There is no abnormal mass effect or shift of midline structures. Subcutaneous nodule in the left parietal scalp is unchanged. There is also unchanged opacification of right ethmoid air cell. Atherosclerotic calcification is seen within distal internal carotid and vertebral arteries. IMPRESSION: No acute abnormality or significant change is detected. Dictated by: Dictated on workstation # [id number]
--- NOTE | 2017-07-29 16:34 | Diagnostic Imaging Report ---
INDICATION: Fall. COMPARISON: 03/18/2016. Portable chest. FINDINGS: Left mastectomy noted. The heart is enlarged. The pulmonary vasculature does appear slightly prominent today. There are no consolidated infiltrates. No pleural effusion. No pneumothorax. No rib fractures demonstrated. IMPRESSION: Development of mild cardiomegaly and mild pulmonary venous congestion when compared with previous exam. Dictated by: Dictated on workstation # [id number]
--- NOTE | 2017-07-29 16:37 | Diagnostic Imaging Report ---
INDICATION: Fall. Left hip pain. COMPARISON: 06/20/2016. FINDINGS: An AP pelvis and left hip films were performed. The bony pelvis is intact. The SI joints are symmetrical. No fractures are demonstrated. The femoral heads are in normal articulation bilaterally. Moderate degenerative change is noted of the hips with some hypertrophic change along the femoral head. No fractures are demonstrated with AP and crosstable views of the left hip. IMPRESSION: 1. No acute bony abnormality is demonstrated. 2. 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 Dictated by: Dictated on workstation # [id number]
[2017-07-29 16:58] LABS: BASOPHILS % (AUTO) 0 % (0-10); EOSINOPHILS # (AUTO) 0.2 10^3/uL (0.0-0.3); EOSINOPHILS % (AUTO) 2 % (0-10); HEMATOCRIT 39 % (35-52); HEMOGLOBIN 12.4 G/DL (11.5-16.0); LYMPHOCYTES # (AUTO) 1.4 X 10^3 (1.0-4.0); LYMPHOCYTES % (AUTO) 17 % (12-44); MEAN CORPUSCULAR HEMOGLOBIN 29 PG (25-34); MEAN CORPUSCULAR HGB CONC 32 G/DL (32-36); MEAN CORPUSCULAR VOLUME 92 FL (80-99); MONOCYTES # (AUTO) 0.8 X 10^3 (0.0-1.0); MONOCYTES % (AUTO) 10 % (0-12); NEUTROPHILS # (AUTO) 5.9 X 10^3 (1.8-7.8); NEUTROPHILS % (AUTO) 71 % (42-75); PLATELET COUNT 178 10^3/uL (130-400); RED BLOOD COUNT 4.26 10^6/uL (4.35-5.85); RED CELL DISTRIBUTION WIDTH 13.5 % (10.0-14.5); WHITE BLOOD COUNT 8.3 10^3/uL (4.3-11.0)
[2017-07-29 17:18] LABS: ALBUMIN 3.9 GM/DL (3.2-4.5); BILIRUBIN,TOTAL 0.4 MG/DL (0.1-1.0); CALCIUM 8.9 MG/DL (8.5-10.1); CREATININE SERUM 1.13 MG/DL (0.60-1.30); TOTAL PROTEIN 6.8 GM/DL (6.4-8.2)
[2017-07-29 17:39] LABS: BILIRUBIN,URINE NEGATIVE (NEGATIVE); CLARITY,URINE CLEAR; COLOR,URINE YELLOW; GLUCOSE, URINE (UA) NEGATIVE (NEGATIVE); KETONES,URINE NEGATIVE (NEGATIVE); LEUKOCYTE ESTERASE ,URINE 1+ (NEGATIVE); NITRITE,URINE NEGATIVE (NEGATIVE); PH,URINE 6.5 (5-9); PROTEIN,URINE NEGATIVE (NEGATIVE); UROBILINOGEN,URINE NORMAL (NORMAL)
[2017-07-29 17:49] LABS: BACTERIA,URINE FEW /HPF; RBC,URINE 0-2 /HPF; SQUAMOUS EPITHELIAL CELL,UR 0-2 /HPF
--- OUTSIDE RECORDS SUMMARY | 2017-07-29 19:21 | XMS REPORT | CCD ---
Author Celestina Juares Organization [facility] Address [facility] [place] [address] Phone Care Team Providers Care Camp Dishwasher Name Role Phone PP Unavailable CCM Unavailable Summary Purpose Interface Exchange Insurance Providers Payer name Policy type / Coverage type Covered republican ID Effective Begin Date Effective End Date WPS Medicare Part B Medicare Part B [id number] Unknown Unknown FOR LIFE WPS Medicare Part B [id number] Unknown Unknown Family history Mother Diagnosis Age At Onset No Family Disease Entered N/A Social History Social History Element Codes Description Effective Dates Living arrangements Unknown Assisted Living VCV 11/08/2015 Education level Unknown College Graduate 10/12/2015 Marital status Unknown 03/18/2014 Number of children Unknown 5 03/18/[address]: 520969790 Never smoker 03/18/[address]: 410950613 Never drinks alcohol 03/18/2014 Allergies, Adverse Reactions, Alerts Substance Reaction Codes Entered Date Inactivated Date Status ELVA INHIBITORS cough Unknown 03/18/2014 No Inactive Date Active Past Medical History Illness Codes Condition Status Onset Date Resolved Date Frequency of micturition ICD-9: 788.41 ICD-10: R35.0 Active 01/09/2017 Unknown Localized edema ICD-9 : 782.3 ICD-10: R60.0 Active 03/18/2014 Unknown Urgency of urination ICD-9: 788.63 ICD-10: R39.15 Active 01/09/2017 Unknown Bilateral primary osteoarthritis of hip ICD-9: 715.15 ICD-10: M16.0 Active 10/11/2015 Unknown Essential (primary) hypertension ICD-9: 401.9 ICD-10: I10 Active 03/18/2014 Unknown Parkinson's disease ICD-9: 332.0 ICD-10: G20 Active 05/03/2014 Unknown Type 2 diabetes mellitus with hyperglycemia ICD-9: 250.02 ICD-10: E11.65 Active 03/18/2014 Unknown Low back pain ICD-9: 724.2 ICD-10: M54.5 Active 01/15/2016 Unknown Pain in right toe(s) ICD-9: 729.5 ICD-10: M79.674 Active 07/29/2016 Unknown Pain in left hip ICD-9 : 719.45 ICD-10: M25.552 Active 06/28/2016 Unknown Muscle weakness (generalized) ICD-9: 728.87 ICD-10: M62.81 Active 03/25/2016 Unknown Dysuria ICD-9: 788.1 ICD-10: R30.0 Active 03/06/2016 Unknown Left upper quadrant pain ICD-9: 789.02 ICD-10: R10.12 Active 03/06/2016 Unknown Encounter for follow-up examination after completed treatment for conditions other than malignant neoplasm ICD-9: V67.9 ICD-10: Z09 Active 01/23/2016 Unknown Other skin changes ICD -9: 709.9 ICD-10: R23.8 Active 01/15/2016 Unknown Unsteadiness on feet ICD-9: 781.2 ICD-10: R26.81 Active 09/07/2015 Unknown Pain in unspecified hip ICD-9: 719.45 ICD-10: M25.559 Active 07/19/2014 Unknown Dysuria ICD-9: 788.1 Active 01/15/2015 Unknown UTI (urinary tract infection) ICD-9: 599.0 Active 12/08/2014 Unknown Diabetes Unknown Active 09/28/2014 Unknown DIABETES TYPE II ICD-9 : 250.00 Active 09/27/2014 Unknown Cellulitis ICD-9: 682.9 Active 07/19/2014 Unknown Hip pain ICD-9: 719.45 Active 07/19/2014 Unknown Osteoarthritis Unknown Active 05/03/2014 Unknown Back pain ICD-9: 724.5 Active 05/03/2014 Unknown Bilateral arm weakness ICD-9: 729.89 Active 05/03/2014 Unknown Chronic osteoarthritis ICD-9: 715.90 Active 05/03/2014 Unknown Parkinson's disease ICD-9: 332.0 Active 05/03/2014 Unknown Hypertension Unknown Active 03/18/2014 Unknown DM W/O COMPLICATION TYPE II, 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 Active 03/18/2014 Unknown EDEMA ICD-9: 782.3 Active 03/18/2014 Unknown ESSENTIAL HYPERTENSION ICD-9: 401.9 Active 03/18/2014 Unknown MALAISE AND FATIGUE ICD-9: 780.79 Active 03/18/2014 Unknown OBESITY ICD-9: 278.00 Active 03/18/2014 Unknown Restless leg ICD-9: 333.94 Active 03/18/2014 Unknown Problems Condition Codes Effective Dates Condition Status Frequency of micturition ICD-9: 788.41 ICD-10: R35.0 01/09/2017 Active Localized edema ICD-9 : 782.3 ICD-10: R60.0 03/18/2014 Active Urgency of urination ICD-9: 788.63 ICD-10: R39.15 01/09/2017 Active Bilateral primary osteoarthritis of hip ICD-9: 715.15 ICD-10: M16.0 10/11/2015 Active Essential (primary) hypertension ICD-9: 401.9 ICD-10: I10 03/18/2014 Active Parkinson's disease ICD-9: 332.0 ICD-10: G20 05/03/2014 Active Type 2 diabetes mellitus with hyperglycemia ICD-9: 250.02 ICD-10: E11.65 03/18/2014 Active Low back pain ICD-9: 724.2 ICD-10: M54.5 01/15/2016 Active Pain in right toe(s) ICD-9: 729.5 ICD-10: M79.674 07/29/2016 Active Pain in left hip ICD-9 : 719.45 ICD-10: M25.552 06/28/2016 Active Muscle weakness (generalized) ICD-9: 728.87 ICD-10: M62.81 03/25/2016 Active Dysuria ICD-9: 788.1 ICD-10: R30.0 03/06/2016 Active Left upper quadrant pain ICD-9: 789.02 ICD-10: R10.12 03/06/2016 Active Encounter for follow-up examination after completed treatment for conditions other than malignant neoplasm ICD-9: V67.9 ICD-10: Z09 01/23/2016 Active Other skin changes ICD -9: 709.9 ICD-10: R23.8 01/15/2016 Active Unsteadiness on feet ICD-9: 781.2 ICD-10: R26.81 09/07/2015 Active Pain in unspecified hip ICD-9: 719.45 ICD-10: M25.559 07/19/2014 Active Dysuria ICD-9: 788.1 01/15/2015 Active UTI (urinary tract infection) ICD-9: 599.0 12/08/2014 Active Diabetes Unknown 09/28/2014 Active DIABETES TYPE II ICD-9 : 250.00 09/27/2014 Active Cellulitis ICD-9: 682.9 07/19/2014 Active Hip pain ICD-9: 719.45 07/19/2014 Active Osteoarthritis Unknown 05/03/2014 Active Back pain ICD-9: 724.5 05/03/2014 Active Bilateral arm weakness ICD-9: 729.89 05/03/2014 Active Chronic osteoarthritis ICD-9: 715.90 05/03/2014 Active Parkinson's disease ICD-9: 332.0 05/03/2014 Active Hypertension Unknown 03/18/2014 Active DM W/O COMPLICATION TYPE II, 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 03/18/2014 Active EDEMA ICD-9: 782.3 03/18/2014 Active ESSENTIAL HYPERTENSION ICD-9: 401.9 03/18/2014 Active MALAISE AND FATIGUE ICD-9: 780.79 03/18/2014 Active OBESITY ICD-9: 278.00 03/18/2014 Active Restless leg ICD-9: 333.94 03/18/2014 Active Medications Medication Codes Instructions Start Date Stop Date Status Fill Instructions Duragesic 25 mcg/hr transdermal patch RxNorm: 691381 1 Patch TD Q72H 06/09/2017 07/08/2017 Active Voltaren 1 % topical gel RxNorm: 025325 APPLY 4 GRAMS TO LOWER BACK/HIPS FOUR TIMES DAILY 06/09/2017 07/20/2017 Active Generic For:VOLTAREN GEL 1% 06/09/2017 8: 52:25 AM Duragesic 12 mcg/hr transdermal patch RxNorm: 695695 1 Patch TD Q72H 06/09/2017 07/08/2017 Active Duragesic 25 mcg/hr transdermal patch RxNorm: 517257 1 Patch TD Q72H 06/09/2017 06/08/2017 Inactive Keflex 500 mg capsule RxNorm: 196156 1 Capsule(s) PO TID 201706/04/2017 Inactive Keflex 500 mg capsule RxNorm: 307964 1 Capsule(s) PO TID 201705/28/2017 Inactive senna 8.6 mg tablet RxNorm: 317987 Tablet(s) TAKE 2 TABLETS BY MOUTH DAILY 05/26/2017 12/21/2017 Active Generic For:SENOKOT TABLET 10/03/2016 9:56:42 AM 10/03 9:56:41 AM Ocuvite with Lutein 1,000 unit-200 mg-60 unit-2mg tablet RxNorm: 1 Tablet(s) PO daily 05/26/2017 12/21/2017 Active Duragesic 12 mcg/hr transdermal patch RxNorm: 532383 1 Patch TD Q72H 05/23/2017 06/08/2017 Inactive Aleve 220 mg tablet RxNorm: 172323 Tablet(s) TAKE ONE TABLET BY MOUTH TWICE DAILY 05/12/2017 09/08/2017 Active 05/13/2016 8:39:57 AM Lantus 100 unit/mL subcutaneous solution RxNorm: 465211 INJECT 30 UNITS SUBCUTANEOUSLY DAILY 05/05/20172018 Active 05/05/2017 11:15:06 AM Augmentin 500 mg-125 mg tablet RxNorm: 124688 1 Tablet(s) PO TID 05/02/2017 05/01/2017 Inactive Augmentin 500 mg-125 mg tablet RxNorm: 994749 1 Tablet(s) PO TID 05/02/2017 05/08/2017 Inactive Vesicare 5 mg tablet RxNorm: 632065 1 Tablet(s) PO daily 201608/21/2017 Active gabapentin 100 mg capsule RxNorm: 312219 TAKE 1 CAPSULE BY MOUTH DAILY 04/24/2017 10/20/2017 Active Generic For:NEURONTIN 100 MG CAPSULE 04/24/2017 12:21:48 PM Duragesic 12 mcg/hr transdermal patch RxNorm: 986409 1 Patch TD Q72H 04/22/2017 05/21/2017 Inactive Duragesic 25 mcg/hr transdermal patch RxNorm: 558659 1 Patch TD Q72H 04/22/2017 05/21/2017 Inactive capsaicin 0.025 % topical cream RxNorm: 231657 APPLY TOPICALLY FOUR TIMES DAILY 04/10/2017 07/26/2017 Active 04/10/2017 11:05:24 AM N O T I C E Last quantity doesn't match original quantity Duragesic 12 mcg/hr transdermal patch RxNorm: 237528 1 Patch TD Q72H 03/24/2017 04/21/2017 Inactive Duragesic 25 mcg/hr transdermal patch RxNorm: 885206 1 Patch TD Q72H 03/24/2017 04/21/2017 Inactive Duragesic 12 mcg/hr transdermal patch RxNorm: 752259 1 Patch TD Q72H 02/20/2017 03/21/2017 Inactive Voltaren 1 % topical gel RxNorm: 591834 APPLY 4 GRAMS TO LOWER BACK/HIPS FOUR TIMES DAILY 02/13/2017 03/26/2017 Inactive Generic For:VOLTAREN GEL 1% 02/12/2017 9:20:40 AM Vesicare 5 mg tablet RxNorm: 693582 1 Tablet(s) PO daily 201605/04/2017 Inactive Vesicare 5 mg tablet RxNorm: 665059 1 Tablet(s) PO daily 201602/04/2017 Inactive Cozaar 50 mg tablet RxNorm: 841797 TAKE 1 TABLET BY MOUTH DAILY 01/31/2017 07/29/2017 Active Generic For:*COZAAR 50 MG TABLET 01/30/2017 3:58:13 PM Namenda 10 mg tablet RxNorm: 107057 TAKE 1 TABLET BY MOUTH TWICE DAILY 01/31/2017 06/29/2017 Active Generic For:NAMENDA 10MG TAB 01/30/2017 3:57:01 PM gabapentin 300 mg capsule RxNorm: 446872 TAKE 1 CAPSULE(S) BY MOUTH TWICE DAILY 01/31/2017 06/29/2017 Active Generic For:NEURONTIN 300 MG CAPSULE 01/30/2017 3:59: 00 PM trazodone 50 mg tablet RxNorm: 455712 TAKE 1 TABLET BY MOUTH DAILY 01/31/2017 07/29/2017 Active Generic For:DESYREL 50 MG TABLET 01/30/2017 3:57:33 PM Duragesic 12 mcg/hr transdermal patch RxNorm: 704052 1 Patch TD Q72H 01/23/2017 02/19/2017 Inactive Duragesic 25 mcg/hr transdermal patch RxNorm: 086587 1 Patch TD Q72H 01/21/2017 02/19/2017 Inactive Keflex 500 mg capsule RxNorm: 030705 1 Capsule(s) PO TID 201601/09/2017 Inactive Keflex 500 mg capsule RxNorm: 898659 1 Capsule(s) PO TID 201601/19/2017 Inactive Duragesic 12 mcg/hr transdermal patch RxNorm: 482659 1 Patch TD Q72H 12/27/2016 01/22/2017 Inactive Duragesic 25 mcg/hr transdermal patch RxNorm: 427859 1 Patch TD Q72H 12/03/2016 01/01/2017 Inactive Duragesic 12 mcg/hr transdermal patch RxNorm: 009804 1 Patch TD Q72H 11/21/2016 12/20/2016 Inactive Voltaren 1 % topical gel RxNorm: 742613 APPLY 4 GRAMS TO LOWER BACK/HIPS FOUR TIMES DAILY 11/14/2016 12/25/2016 Inactive Generic For:VOLTAREN GEL 1% 11/14/2016 11:44:09 AM capsaicin 0.025 % topical cream RxNorm: 244214 1 Application TOP QID 11/11/2016 04/09/2017 Inactive Lantus 100 unit/mL subcutaneous solution RxNorm: 324929 30 Unit(s) SQ daily 11/11/2016 05/04/2017 Inactive Ocuvite with Lutein 1,000 unit-200 mg-60 unit-2mg tablet RxNorm: 1 Tablet(s) PO daily 11/08/2016 05/25/2017 Inactive gabapentin 100 mg capsule RxNorm: 024617 TAKE 1 CAPSULE BY MOUTH DAILY 11/08/2016 04/23/2017 Inactive Generic For:NEURONTIN 100 MG CAPSULE 11/08/2016 9:16:54 AM N O T I C E Last quantity doesn't match original quantity Duragesic 25 mcg/hr transdermal patch RxNorm: 441933 1 Patch TD Q72H 11/04/2016 12/02/2016 Inactive Duragesic 12 mcg/hr transdermal patch RxNorm: 431529 1 Patch TD Q72H 10/21/2016 11/19/2016 Inactive Duragesic 25 mcg/hr transdermal patch RxNorm: 586315 1 Patch TD Q72H 10/10/2016 11/03/2016 Inactive senna 8.6 mg tablet RxNorm: 990514 Tablet(s) TAKE 2 TABLETS BY MOUTH DAILY 10/08/2016 05/05/2017 Inactive Generic For:SENOKOT TABLET 10/03/2016 9:56:42 AM 9:56:41 AM senna 8.6 mg tablet RxNorm: 648226 TAKE 2 TABLETS BY MOUTH DAILY 10/03/2016 10/07/2016 Inactive Generic For:SENOKOT TABLET 10/03/2016 9:56:42 AM 10/03/2016 9:56: 41 AM Duragesic 12 mcg/hr transdermal patch RxNorm: 149215 1 Patch TD Q72H 09/25/2016 10/20/2016 Inactive mecobalamin (vitamin B12) 5,000 mcg disintegrating tablet RxNorm: 5134381 1 Tablet (s) PO daily 09/13/2016 08/08/2017 Active gabapentin 300 mg capsule RxNorm: 243930 1 Capsule(s) PO BID 01/30/2017 Inactive Namenda 10 mg tablet RxNorm: 929193 TAKE 1 TABLET BY MOUTH TWICE DAILY 09/13/2016 01/30/2017 Inactive Generic For:NAMENDA 10MG TAB 09/13/2016 2:21:26 PM N O T I C E Last quantity doesn't match original quantity trazodone 50 mg tablet RxNorm: 269515 TAKE 1 TABLET BY MOUTH DAILY 09/13/2016 01/30/2017 Inactive Generic For:DESYREL 50 MG TABLET 09/13/2016 2:21:21 PM N O T I C E Last quantity doesn't match original quantity Cozaar 50 mg tablet RxNorm: 266897 TAKE 1 TABLET BY MOUTH DAILY 09/13/2016 01/30/2017 Inactive Generic For:*COZAAR 50 MG TABLET 09/13/2016 2:21:15 PM N O T I C E Last quantity doesn't match original quantity Duragesic 25 mcg/hr transdermal patch RxNorm: 645022 1 Patch TD Q72H 09/09/2016 10/08/2016 Inactive Voltaren 1 % topical gel RxNorm: 251021 4 Gram(s) TOP to lower back/hips QID 09/02/2016 11/13/2016 Inactive Duragesic 12 mcg/hr transdermal patch RxNorm: 713797 1 Patch TD Q72H 08/21/2016 09/19/2016 Inactive Myrbetriq 50 mg tablet,extended release RxNorm: 4401462 TAKE 1 TABLET BY MOUTH DAILY 08/15/2016 03/12/2017 Inactive 08/15/2016 1:38:02 PM N O T I C E Last quantity doesn't match original quantity gabapentin 100 mg capsule RxNorm: 064396 TAKE 1 CAPSULE BY MOUTH DAILY 08/15/2016 11/07/2016 Inactive Generic For:NEURONTIN 100 MG CAPSULE 08/15/2016 1:37:55 PM N O T I C E Last quantity doesn't match original quantity hydrocodone 5 mg-acetaminophen 325 mg tablet RxNorm: 877662 1 Tablet(s) PO Q4H as needed 08/08/2016 09/06/2016 Inactive Keflex 500 mg capsule RxNorm: 567221 1 Capsule(s) PO TID 201608/04/2016 Inactive Duragesic 12 mcg/hr transdermal patch RxNorm: 419086 1 Patch TD Q72H 07/24/2016 08/20/2016 Inactive Mirapex 1 mg tablet RxNorm: 625618 TAKE 1 TABLET BY MOUTH THREE TIMES DAILY 07/17/2016 10/14/2016 Inactive Generic For:MIRAPEX 1MG TAB BOEH 07/17/2016 10:01: 58 AM carbidopa 25 mg-levodopa 100 mg tablet RxNorm: 428916 TAKE 2 TABLETS BY MOUTH FOUR TIMES DAILY 07/17/2016 10/14/2016 Inactive Generic For:SINEMET-25/100 TABLET 07/17/2016 10:02:12 AM Duragesic 25 mcg/hr transdermal patch RxNorm: 788238 1 Patch TD q72 hours 07/15/2016 08/13/2016 Inactive Voltaren 1 % topical gel RxNorm: 565753 4 Gram(s) TOP to lower back/hips QID 07/11/2016 09/01/2016 Inactive capsaicin 0.025 % topical cream RxNorm: 201414 1 Application TOP QID 07/05/2016 11/10/2016 Inactive Refresh Tears 0.5 % eye drops RxNorm: 8653352 1 Drop(s) OPH daily as needed for dry eyes 06/28/2016 No Stop Date Active Duragesic 12 mcg/hr transdermal patch RxNorm: 019549 1 TD q72 hours 06/27/2016 07/23/2016 Inactive Vitamin D2 50,000 unit capsule RxNorm: 108000 TAKE 1 CAPSULE BY MOUTH WEEKLY 06/21/2016 07/18/2016 Inactive Generic For:DRISDOL 54158 UNITS CAP 06/18/2016 4:31: 30 PM Mirapex 1 mg tablet RxNorm: 976774 TAKE 1 TABLET BY MOUTH THREE TIMES DAILY 06/19/2016 07/16/2016 Inactive Generic For:MIRAPEX 1MG TAB [facility] 06/18/2016 4:32: 01 PM N O T I C E Last quantity doesn't match original quantity Cozaar 50 mg tablet RxNorm: 715783 TAKE 1 TABLET BY MOUTH DAILY 06/19/2016 09/12/2016 Inactive Generic For:*COZAAR 50 MG TABLET N O T I C E Last quantity doesn't match original quantity carbidopa 25 mg-levodopa 100 mg tablet RxNorm: 316106 TAKE 2 TABLETS BY MOUTH FOUR TIMES DAILY 06/19/2016 07/16/2016 Inactive Generic For:SINEMET-25/100 TABLET N O T I C E Last quantity doesn't match original quantity Namenda 10 mg tablet RxNorm: 296249 TAKE 1 TABLET BY MOUTH TWICE DAILY 06/19/2016 09/12/2016 Inactive Generic For:NAMENDA 10MG TAB 06/18/2016 4:32:09 PM N O T I C E Last quantity doesn't match original quantity trazodone 50 mg tablet RxNorm: 543633 TAKE 1 TABLET BY MOUTH DAILY 06/19/2016 09/12/2016 Inactive Generic For:DESYREL 50 MG TABLET N O T I C E Last quantity doesn't match original quantity Duragesic 25 mcg/hr transdermal patch RxNorm: 275157 1 Patch TD q72 hours 06/12/2016 07/11/2016 Inactive Aleve 220 mg tablet RxNorm: 739674 Tablet(s) TAKE ONE TABLET BY MOUTH TWICE DAILY 05/27/2016 09/23/2016 Inactive 05/13/2016 8:39:57 AM Duragesic 12 mcg/hr transdermal patch RxNorm: 876596 1 TD q72 hours 05/27/2016 06/25/2016 Inactive gabapentin 300 mg capsule RxNorm: 376841 1 Capsule(s) PO BID 05/23/2016 Inactive Lantus 100 unit/mL subcutaneous solution RxNorm: 883565 30 Unit(s) SQ daily 05/24/2016 05/23/2016 Inactive gabapentin 300 mg capsule RxNorm: 143790 1 Capsule(s) PO BID 09/12/2016 Inactive Lantus 100 unit/mL subcutaneous solution RxNorm: 245872 30 Unit(s) SQ daily 05/24/2016 11/10/2016 Inactive carbidopa 25 mg-levodopa 100 mg tablet RxNorm: 950664 TAKE 2 TABLETS BY MOUTH FOUR TIMES DAILY 05/22/2016 06/18/2016 Inactive Generic For:SINEMET-25/100 TABLET 05/22/2016 9:39:54 AM Namenda 10 mg tablet RxNorm: 606262 TAKE 1 TABLET BY MOUTH TWICE DAILY 05/22/2016 06/18/2016 Inactive Generic For:NAMENDA 10MG TAB 05/22/2016 9:39:26 AM mecobalamin (vitamin B12) 5,000 mcg disintegrating tablet RxNorm: 6472797 1 Tablet (s) PO daily 05/22/2016 09/12/2016 Inactive Cozaar 50 mg tablet RxNorm: 696255 TAKE 1 TABLET BY MOUTH DAILY 05/22/2016 06/18/2016 Inactive Generic For:*COZAAR 50 MG TABLET 05/22/2016 9:39:36 AM Mirapex 1 mg tablet RxNorm: 345886 TAKE 1 TABLET BY MOUTH THREE TIMES DAILY 05/22/2016 06/18/2016 Inactive Generic For:MIRAPEX 1MG TAB [facility] 05/22/2016 9:39: 17 AM trazodone 50 mg tablet RxNorm: 180504 TAKE 1 TABLET BY MOUTH DAILY 05/22/2016 06/18/2016 Inactive Generic For:DESYREL 50 MG TABLET 05/22/2016 9:39:07 AM Ocuvite with Lutein 1,000 unit-200 mg-60 unit-2mg tablet RxNorm: 1 Tablet(s) PO daily 05/21/2016 05/20/2016 Inactive gabapentin 100 mg capsule RxNorm: 458132 TAKE 1 CAPSULE BY MOUTH DAILY 05/21/2016 08/14/2016 Inactive Generic For:NEURONTIN 100 MG CAPSULE 05/21/2016 2:57:16 PM Myrbetriq 50 mg tablet,extended release RxNorm: 9702518 TAKE 1 TABLET BY MOUTH DAILY 05/21/2016 08/15/2016 Inactive 05/21/2016 2:59:11 PM Ocuvite with Lutein 1,000 unit-200 mg-60 unit-2mg tablet RxNorm: 1 Tablet(s) PO daily 05/21/2016 11/07/2016 Inactive Aleve 220 mg tablet RxNorm: 527234 TAKE ONE TABLET BY MOUTH TWICE DAILY 05/14/2016 05/26/2016 Inactive 05/13/2016 8:39:57 AM Duragesic 25 mcg/hr transdermal patch RxNorm: 501700 1 Patch TD q72 hours 05/14/2016 06/11/2016 Inactive Duragesic 12 mcg/hr transdermal patch RxNorm: 219385 1 TD q72 hours 04/24/2016 05/23/2016 Inactive capsaicin 0.025 % topical cream RxNorm: 022908 1 Application TOP QID 04/16/2016 07/04/2016 Inactive Duragesic 12 mcg/hr transdermal patch RxNorm: 358693 1 TD q72 hours 04/10/2016 04/23/2016 Inactive Duragesic 25 mcg/hr transdermal patch RxNorm: 890989 1 TD q72 hours 04/10/2016 05/09/2016 Inactive Cipro 500 mg tablet RxNorm: 358231 1 Tablet(s) PO BID 201504/13/2016 Inactive hydrocodone 5 mg-acetaminophen 325 mg tablet RxNorm: 433401 1 Tablet(s) PO Q4H as needed 03/20/2016 04/18/2016 Inactive Duragesic 12 mcg/hr transdermal patch RxNorm: 053735 1 TD q72 hours 03/20/2016 04/09/2016 Inactive Duragesic 25 mcg/hr transdermal patch RxNorm: 645648 1 TD q72 hours 03/15/2016 04/09/2016 Inactive hydrocodone 5 mg-acetaminophen 325 mg tablet RxNorm: 080005 1 Tablet(s) PO Q4H as needed 03/08/2016 03/19/2016 Inactive Cipro 500 mg tablet RxNorm: 191867 1 Tablet(s) PO BID 201503/06/2016 Inactive Cipro 500 mg tablet RxNorm: 040547 1 Tablet(s) PO BID 201503/13/2016 Inactive Duragesic 12 mcg/hr transdermal patch RxNorm: 862205 1 TD q72 hours 02/27/2016 03/19/2016 Inactive Duragesic 12 mcg/hr transdermal patch RxNorm: 464212 1 TD q72 hours 01/29/2016 02/26/2016 Inactive [SAVINGS FOR NON-COVERED DRUGS -- BIN:624559, PCN: ASPROD1, Group : XXXXX, ID# XXXXXXX, Questions: . THIS IS NOT INSURANCE.] Lasix 20 mg tablet RxNorm: 973310 2 Tablet(s) PO daily 201501/28/2016 Inactive potassium chloride ER 10 mEq tablet,extended release RxNorm: 889423 2 Tablet(s) PO daily to take while taking the lasix 01/24/2016 01/28/2016 Inactive Duragesic 25 mcg/hr transdermal patch RxNorm: 354456 1 TD q72 hours 01/16/2016 02/14/2016 Inactive Duragesic 25 mcg/hr transdermal patch RxNorm: 968427 1 TD q72 hours APPLY WITH DURAGESIC 12MCG 1 Q 72 01/03/20162015 Inactive [SAVINGS FOR NON-COVERED DRUGS -- BIN:574456, PCN: ASPROD1, Group: XXXXX, ID# [id number], Questions: [phone]. THIS IS NOT INSURANCE.] hydrocodone 5 mg-acetaminophen 325 mg tablet RxNorm: 837915 1 Tablet(s) PO Q4H as needed 01/02/2016 03/07/2016 Inactive [SAVINGS FOR NON-COVERED DRUGS -- BIN:288153 , PCN: ASPROD1, Group: XXXXX, ID# [id number], Questions: . THIS IS NOT INSURANCE.] Myrbetriq 50 mg tablet,extended release RxNorm: 9740852 1 Tablet(s) PO daily 12/28/2015 04/25/2016 Inactive PA approved Duragesic 25 mcg/hr transdermal patch RxNorm: 713157 1 TD q72 hours 12/18/2015 01/02/2016 Inactive [SAVINGS FOR NON-COVERED DRUGS -- BIN:987391, PCN: ASPROD1, Group : XXXXX, ID# [id number], Questions: . THIS IS NOT INSURANCE.] Duragesic 25 mcg/hr transdermal patch RxNorm: 808877 1 TD q72 hours 11/17/2015 12/17/2015 Inactive [SAVINGS FOR NON-COVERED DRUGS -- BIN:256499, PCN: ASPROD1, Group : XXXXX, ID# [id number], Questions: . THIS IS NOT INSURANCE.] Myrbetriq 50 mg tablet,extended release RxNorm: 8777633 1 Tablet(s) PO daily 10/31/2015 12/27/2015 Inactive increase dose Myrbetriq 25 mg tablet,extended release RxNorm: 7583959 1 Tablet(s) PO daily 10/24/2015 10/30/2015 Inactive send PA form if required Myrbetriq 25 mg tablet,extended release RxNorm: 7482403 1 Tablet(s) PO daily 10/24/2015 10/23/2015 Inactive send PA form if required Duragesic 25 mcg/hr transdermal patch RxNorm: 885966 1 TD q72 hours 10/18/2015 11/16/2015 Inactive [SAVINGS FOR NON-COVERED DRUGS -- BIN:986570, PCN: ASPROD1, Group : XXXXX, ID# [id number], Questions: . THIS IS NOT INSURANCE.] Namenda 10 mg tablet RxNorm: 696853 1 Tablet(s) PO BID 201505/21/2016 Inactive Lantus Solostar 100 unit/mL (3 mL) subcutaneous insulin pen RxNorm: 773111 30 Unit(s) SQ daily (may be adjusted for further glucose control) 10/12/2015 05/23/2016 Inactive [SAVINGS FOR UNINSURED PATIENTS -- BIN:963653, PCN: ASPROD1, Group: [id number], ID# [id number], Process claim through [employer]ap, for questions: [phone]. THIS IS NOT INSURANCE.] Mirapex 1 mg tablet RxNorm: 583168 1 Tablet(s) PO TID 201505/21/2016 Inactive Duragesic 25 mcg/hr transdermal patch RxNorm: 170713 1 TD q72 hours 09/18/2015 10/17/2015 Inactive [SAVINGS FOR NON-COVERED DRUGS -- BIN:822359, PCN: ASPROD1, Group : XXXXX, ID# [email or web address], Questions: . THIS IS NOT INSURANCE.] Sinemet CR 50 mg-200 mg tablet,extended release RxNorm: 369411 2 Tablet(s) PO QID 08/21/2015 10/12/2015 Inactive Duragesic 25 mcg/hr transdermal patch RxNorm: 884519 1 TD q72 hours 08/21/2015 09/17/2015 Inactive [SAVINGS FOR NON-COVERED DRUGS -- BIN:275207, PCN: ASPROD1, Group : XXXXX, ID# XXXXXXX, Questions: . THIS IS NOT INSURANCE.] Namenda XR 7 mg-14 mg-21 mg-28 mg capsule,sprinkle,ER 24hr, dose pack RxNorm: 067447 Capsule(s) PO 08/21/2015 08/21/2015 Inactive gabapentin 100 mg capsule RxNorm: 227042 1 Capsule(s) PO once daily at noon and 300mg BID 08/21/2015 05/20/2016 Inactive [SAVINGS FOR NON-COVERED DRUGS -- BIN: 710632, PCN: ASPROD1, Group: XXXXX, ID# [email or web address], Questions: . THIS IS NOT INSURANCE.] Mirapex 1 mg tablet RxNorm: 557536 1 Tablet(s) PO QPM 201509/19/2015 Inactive Lantus Solostar 100 unit/mL (3 mL) subcutaneous insulin pen RxNorm: 983013 25 Unit(s) SQ daily (may be adjusted for further glucose control) 08/21/2015 10/11/2015 Inactive [SAVINGS FOR UNINSURED PATIENTS -- BIN:687321, PCN: ASPROD1, Group: [id number], ID# [id number], Process claim through AppTap, for questions: [phone]. THIS IS NOT INSURANCE.] Duragesic 12 mcg/hr transdermal patch RxNorm: 897282 1 TD q72 hours 08/04/2015 08/20/2015 Inactive [SAVINGS FOR NON-COVERED DRUGS -- BIN:669143, PCN: ASPROD1, Group : XXXXX, ID# [email or web address], Questions: . THIS IS NOT INSURANCE.] Augmentin 500 mg-125 mg tablet RxNorm: 242542 1 Tablet(s) PO TID 07/27/2015 07/26/2015 Inactive Augmentin 500 mg-125 mg tablet RxNorm: 128901 1 Tablet(s) PO TID 07/27/2015 08/02/2015 Inactive Cipro 500 mg tablet RxNorm: 942439 1 Tablet(s) PO BID 201507/06/2015 Inactive Cipro 500 mg tablet RxNorm: 189297 1 Tablet(s) PO BID 201510/11/2015 Inactive Duragesic 12 mcg/hr transdermal patch RxNorm: 002033 1 TD q72 hours 07/04/2015 08/03/2015 Inactive [SAVINGS FOR NON-COVERED DRUGS -- BIN:[id number], PCN: [id number], Group : XXXXX, ID# [id number], Questions: . THIS IS NOT INSURANCE.] hydrocodone 5 mg-acetaminophen 325 mg tablet RxNorm: 848609 1 Tablet(s) PO Q4H as needed 07/03/2015 01/01/2016 Inactive [SAVINGS FOR NON-COVERED DRUGS -- BIN:[id number] , PCN: ASPROD1, Group: XXXXX, ID# [id number], Questions: . THIS IS NOT INSURANCE.] Duragesic 12 mcg/hr transdermal patch RxNorm: 450879 1 TD q72 hours 06/05/2015 07/03/2015 Inactive [SAVINGS FOR NON-COVERED DRUGS -- BIN:887817, PCN: ASPROD1, Group : XXXXX, ID# [id number], Questions: . THIS IS NOT INSURANCE.] Duragesic 12 mcg/hr transdermal patch RxNorm: 460182 1 TD q72 hours 05/09/2015 06/04/2015 Inactive [SAVINGS FOR NON-COVERED DRUGS -- BIN:677336, PCN: ASPROD1, Group : XXXXX, ID# [id number], Questions: . THIS IS NOT INSURANCE.] hydrocodone 5 mg-acetaminophen 325 mg tablet RxNorm: 076571 1 Tablet(s) PO Q4H as needed 04/27/2015 07/02/2015 Inactive [SAVINGS FOR NON-COVERED DRUGS -- BIN:957805 , PCN: ASPROD1, Group: XXXXX, ID# [id number], Questions: . THIS IS NOT INSURANCE.] Duragesic 12 mcg/hr transdermal patch RxNorm: 120087 1 TD q72 hours 04/06/2015 05/08/2015 Inactive [SAVINGS FOR NON-COVERED DRUGS -- BIN:856081, PCN: ASPROD1, Group : XXXXX, ID# [id number], Questions: . THIS IS NOT INSURANCE.] Duragesic 12 mcg/hr transdermal patch RxNorm: 695285 1 TD q72 hours 03/07/2015 04/05/2015 Inactive [SAVINGS FOR NON-COVERED DRUGS -- BIN:461967, PCN: ASPROD1, Group : XXXXX, ID# [id number], Questions: . THIS IS NOT INSURANCE.] hydrocodone 5 mg-acetaminophen 325 mg tablet RxNorm: 731575 1 Tablet(s) PO Q4H as needed 02/16/2015 04/26/2015 Inactive [SAVINGS FOR NON-COVERED DRUGS -- BIN:685367 , PCN: ASPROD1, Group: XXXXX, ID# [id number], Questions: . THIS IS NOT INSURANCE.] Mirapex 0.25 mg tablet RxNorm: 168173 1 Tablet(s) PO QPM 201403/17/2015 Inactive Duragesic 12 mcg/hr transdermal patch RxNorm: 089417 1 TD q72 hours 01/31/2015 03/06/2015 Inactive [SAVINGS FOR NON-COVERED DRUGS -- BIN:915327, PCN: ASPROD1, Group : XXXXX, ID# [id number], Questions: . THIS IS NOT INSURANCE.] Duragesic 12 mcg/hr transdermal patch RxNorm: 620760 1 TD q72 hours 01/03/2015 01/30/2015 Inactive [SAVINGS FOR NON-COVERED DRUGS -- BIN:112934, PCN: ASPROD1, Group : XXXXX, ID# [id number], Questions: . THIS IS NOT INSURANCE.] hydrocodone 5 mg-acetaminophen 325 mg tablet RxNorm: 911198 1 Tablet(s) PO Q4H as needed 12/21/2014 02/15/2015 Inactive [SAVINGS FOR NON-COVERED DRUGS -- BIN:548692 , PCN: ASPROD1, Group: XXXXX, ID# [id number], Questions: . THIS IS NOT INSURANCE.] Duragesic 12 mcg/hr transdermal patch RxNorm: 053042 1 TD q72 hours 12/14/2014 01/02/2015 Inactive [SAVINGS FOR NON-COVERED DRUGS -- BIN:527829, PCN: ASPROD1, Group : XXXXX, ID# [id number], Questions: . THIS IS NOT INSURANCE.] Duragesic 12 mcg/hr transdermal patch RxNorm: 462088 1 TD q72 hours 11/07/2014 12/13/2014 Inactive [SAVINGS FOR NON-COVERED DRUGS -- BIN:918647, PCN: ASPROD1, Group : XXXXX, ID# [id number], Questions: . THIS IS NOT INSURANCE.] Vitamin D2 50,000 unit capsule RxNorm: 850649 TAKE 1 CAPSULE WEEKLY (AFTER FINISHED WITH VIT D 66980W FOR THE 12 WEEKS, START OTC VITAMIN D 2000 UNITS DAILY) 10/24/2014 06/20/2016 Inactive Duragesic 12 mcg/hr transdermal patch RxNorm: 747530 1 TD q72 hours 10/11/2014 11/06/2014 Inactive [SAVINGS FOR NON-COVERED DRUGS -- BIN:310115, PCN: ASPROD1, Group : XXXXX, ID# XXXXXXX, Questions: . THIS IS NOT INSURANCE.] Sinemet CR 50 mg-200 mg tablet,extended release RxNorm: 386003 1 Tablet(s) PO BID 10/05/2014 05/02/2015 Inactive Lantus Solostar 100 unit/mL (3 mL) subcutaneous insulin pen RxNorm: 347847 15 Unit(s) SQ daily (may be adjusted for further glucose control) 09/28/2014 08/20/2015 Inactive [SAVINGS FOR UNINSURED PATIENTS -- BIN:129188, PCN: ASPROD1, Group: AME08, ID# [id number], Process claim through AppTap, for questions: [phone]. THIS IS NOT INSURANCE.] Duragesic 12 mcg/hr transdermal patch RxNorm: 335026 1 TD q72 hours 09/26/2014 10/10/2014 Inactive [SAVINGS FOR NON-COVERED DRUGS -- BIN:651049, PCN: ASPROD1, Group : XXXXX, ID# [id number], Questions: . THIS IS NOT INSURANCE.] hydrocodone 5 mg-acetaminophen 325 mg tablet RxNorm: 015917 1 Tablet(s) PO Q4H as needed 09/23/2014 12/20/2014 Inactive [SAVINGS FOR NON-COVERED DRUGS -- BIN:972483 , PCN: ASPROD1, Group: XXXXX, ID# [id number], Questions: . THIS IS NOT INSURANCE.] Duragesic 12 mcg/hr transdermal patch RxNorm: 956579 1 TD q72 hours 09/09/2014 09/25/2014 Inactive [SAVINGS FOR NON-COVERED DRUGS -- BIN:122745, PCN: ASPROD1, Group : XXXXX, ID# XXXXXXX, Questions: . THIS IS NOT INSURANCE.] carbidopa 25 mg-levodopa 100 mg tablet RxNorm: 954582 2 in the am 1 at noon and 1 katie Tablet(s) PO BID 08/31/20142014 Inactive [SAVINGS FOR NON-COVERED DRUGS -- BIN:167400, PCN: ASPROD1, Group: XXXXX, ID# [id number], Questions: [phone]. THIS IS NOT INSURANCE.] Vitamin D2 50,000 unit capsule RxNorm: 686225 1 CAPSULE(S) PO WEEKLY X 12 WEEKS 08/15/2014 10/23/2014 Inactive hydrocodone 5 mg-acetaminophen 325 mg tablet RxNorm: 396270 1 Tablet(s) PO Q4H as needed 08/12/2014 09/22/2014 Inactive [SAVINGS FOR NON-COVERED DRUGS -- BIN:869015 , PCN: ASPROD1, Group: XXXXX, ID# [id number], Questions: . THIS IS NOT INSURANCE.] hydrocodone 10 mg-acetaminophen 325 mg tablet RxNorm: 492395 1/2 to 1 Tablet(s) PO q 4 hours prn for uncontrolled pain 07/14/2014 08/11/2014 Inactive [SAVINGS FOR NON-COVERED DRUGS -- BIN:327655, PCN: ASPROD1, Group: XXXXX, ID# XXXXXXX, Questions: . THIS IS NOT INSURANCE.] gabapentin 100 mg capsule RxNorm: 530602 1 Capsule(s) PO nightly x1week, then twice daily x 1 week, then tihree times daily thereafter 08/20/2015 Inactive [SAVINGS FOR NON-COVERED DRUGS -- BIN:584601, PCN: ASPROD1, Group: XXXXX, ID# XXXXXXX, Questions: . THIS IS NOT INSURANCE.] Bactrim DS 800 mg-160 mg tablet RxNorm: 993389 1 Tablet(s) PO BID 07/01/2014 07/07/2014 Inactive [SAVINGS FOR NON-COVERED DRUGS -- BIN:265491, PCN: ASPROD1, Group: XXXXX, ID# XXXXXXX, Questions: . THIS IS NOT INSURANCE.] Bactrim DS 800 mg-160 mg tablet RxNorm: 746645 1 Tablet(s) PO BID 07/01/2014 06/30/2014 Inactive Vitamin D2 50,000 unit capsule RxNorm: 842974 1 Capsule(s) PO weekly x 12 weeks 06/07/2014 08/14/2014 Inactive after patient is finished with vit D 34127e for the 12 weeks, she is to start on OTC vitamin D 2000 units daily Keflex 500 mg capsule RxNorm: 408376 1 Capsule(s) PO BID 201405/29/2014 Inactive carbidopa 25 mg-levodopa 100 mg tablet RxNorm: 510111 1 Tablet(s) PO BID 05/30/2014 08/30/2014 Inactive [SAVINGS FOR UNINSURED PATIENTS -- BIN:352485, PCN: ASPROD1 , Group: AME08, ID# [id number], Process claim through MedImpact, for questions: [phone]. THIS IS NOT INSURANCE.] Keflex 500 mg capsule RxNorm: 812611 1 Capsule(s) PO BID 201406/05/2014 Inactive [SAVINGS FOR UNINSURED PATIENTS -- BIN:377790, PCN: ASPROD1, Group: AME08, ID # [id number], Process claim through MedImpact, for questions: . THIS IS NOT INSURANCE.] carbidopa 25 mg-levodopa 100 mg tablet RxNorm: 241652 1 Tablet(s) PO BID 05/23/2014 05/29/2014 Inactive [SAVINGS FOR UNINSURED PATIENTS -- BIN:427934, PCN: ASPROD1 , Group: AME08, ID# [id number], Process claim through MedImpact, for questions: [phone]. THIS IS NOT INSURANCE.] carbidopa 25 mg-levodopa 100 mg tablet RxNorm: 185923 1/2 Tablet(s) PO BID 05/03/2014 05/22/2014 Inactive [SAVINGS FOR UNINSURED PATIENTS -- BIN:291501, PCN: ASPROD1, Group: AME08, ID# [id number], Process claim through MedImpact, for questions: . THIS IS NOT INSURANCE.] pen needle, diabetic, remover & disposal unit 31 x 5/16" RxNorm: 1 use Miscellaneous 03/31/2014 09/21/2015 Inactive [SAVINGS FOR UNINSURED PATIENTS -- BIN :354888, PCN: ASPROD1, Group: AME08, ID# [id number], Process claim through AppTap, for questions: . THIS IS NOT INSURANCE.] Lantus Solostar 100 unit/mL (3 mL) subcutaneous insulin pen RxNorm: 916641 10 Unit(s) SQ daily (may be adjusted for further glucose control) 03/31/2014 09/27/2014 Inactive [SAVINGS FOR UNINSURED PATIENTS -- BIN:844179, PCN: ASPROD1, Group: AME08, ID# [id number], Process claim through AppTap, for questions: [phone]. THIS IS NOT INSURANCE.] Vitamin D2 50,000 unit capsule RxNorm: 301078 1 Capsule(s) PO weekly x 12 weeks 03/22/2014 06/06/2014 Inactive after patient is finished with vit D 42273g for the 12 weeks, she is to start on OTC vitamin D 2000 units daily Vitamin D2 50,000 unit capsule RxNorm: 081005 1 Capsule(s) PO weekly x 12 weeks 03/22/2014 03/21/2014 Inactive after patient is finished with vit D 29550r for the 12 weeks, she is to start on OTC vitamin D 2000 units daily metformin 500 mg tablet RxNorm: 885116 1 Tablet(s) PO BID 03/1803/30/2014 Inactive [SAVINGS FOR UNINSURED PATIENTS -- BIN:780580, PCN: ASPROD1, Group: AME08, ID# [id number], Process claim through AppTap, for questions: . THIS IS NOT INSURANCE.] Lidoderm 5 % (700 mg/patch) adhesive patch RxNorm: 5532650 1 TOP PRN for back pain. NEEDS PA IF ORDERED AGAIN No Start Date Active diclofenac sodium topical RxNorm: 3355 topical No Start Date Active Lasix 20 mg tablet RxNorm: 291788 Tablet(s) daily x 5 with k 10 daily x 5 PO No Start Date Active multivitamin tablet RxNorm: 1 Tablet(s) PO daily No Start Date Active oxybutynin chloride 5 mg tablet RxNorm: 658716 1 Tablet(s) PO daily No Start Date 03/30/2014 Inactive Sinemet CR 25 mg-100 mg tablet,extended release RxNorm: 997484 2 Tablet(s) PO QID No Start Date 06/19/2016 Inactive Namenda 5 mg tablet RxNorm: 765400 Tablet(s) PO No Start Date 10/11/2015 Inactive amlodipine 2.5 mg tablet RxNorm: 848402 1 Tablet(s) PO daily No Start Date 03/30/2014 Inactive Cozaar 50 mg tablet RxNorm: 665839 1 Tablet(s) PO daily No Start Date 05/21/2016 Inactive Voltaren 1 % topical gel RxNorm: 452955 4 Gram(s) TOP to lower back/hips QID No Start Date 07/10/2016 Inactive hydrochlorothiazide 25 mg tablet RxNorm: 607041 1 Tablet(s) PO daily No Start Date 03/30/2014 Inactive pramipexole 0.25 mg tablet RxNorm: 282958 1 Tablet(s) PO daily No Start Date 05/02/2014 Inactive simvastatin 40 mg tablet RxNorm: 928156 oral No Start Date 05/02/2014 Inactive vitamin G95-hwoklye B1 oral liquid RxNorm: PO No Start Date 10/12/2015 Inactive 2000u daily Fosamax Plus D oral RxNorm: 290265 oral No Start Date 05/02/2014 Inactive Actos 45 mg tablet RxNorm: 274020 1 Tablet(s) PO daily No Start Date 03/30/2014 Inactive Duragesic 12 mcg/hr transdermal patch RxNorm: 049520 1 TD q72 hours No Start Date 09/08/2014 Inactive Vitamin D3 2,000 unit capsule RxNorm: 221994 1 Capsule(s) PO daily No Start Date 11/07/2015 Inactive mecobalamin 5,000 mcg disintegrating tablet RxNorm: 5583667 1 Tablet(s) PO daily No Start Date 05/21/2016 Inactive magnesium 250 mg tablet RxNorm: 1 Tablet(s) PO daily No Start Date 05/02/2014 Inactive Refresh Tears 0.5 % eye drops RxNorm: 5350790 1 Drop(s) OPH daily as needed for dry eyes No Start Date 06/27/2016 Inactive furosemide 40 mg tablet RxNorm: 517166 1 Tablet(s) PO daily No Start Date 05/02/2014 Inactive trazodone 50 mg tablet RxNorm: 761674 1 Tablet(s) PO QHS No Start Date 05/21/2016 Inactive glipizide 10 mg tablet RxNorm: 997292 1 Tablet(s) PO daily No Start Date 05/02/2014 Inactive hydrocodone 10 mg-acetaminophen 325 mg tablet RxNorm: 164863 oral No Start Date 07/13/2014 Inactive Refresh ophthalmic RxNorm: 557219 ophthalmic No Start Date 06/28/2016 Inactive capsaicin 0.025 % topical cream RxNorm: 395297 1 Application TOP QID No Start Date 04/15/2016 Inactive Aleve 220 mg tablet RxNorm: 172360 1 Tablet(s) PO daily as needed No Start Date 05/13/2016 Inactive senna 8.6 mg tablet RxNorm: 006503 1 Tablet(s) PO daily as needed No Start Date 10/02/2016 Inactive biotin 1000 mcg RxNorm : 1 Tablet(s) PO daily No Start Date 05/02/2014 Inactive ranitidine 150 mg capsule RxNorm: 647872 2 Capsule(s) PO daily No Start Date 05/02/2014 Inactive hydrocodone 5 mg-acetaminophen 325 mg tablet RxNorm: 856428 1 Tablet(s) PO Q4H as needed No Start Date 08/11/2014 Inactive Calcitrate-Vitamin D oral RxNorm: 1895 oral No Start Date 11/07/2015 Inactive potassium chloride RxNorm: 57962 miscellaneous No Start Date 05/02/2014 Inactive metformin 500 mg tablet RxNorm: 933276 2 Tablet(s) PO daily No Start Date 03/17/2014 Inactive aspirin 81 mg tablet RxNorm: 998842 1 Tablet(s) PO daily No Start Date 11/07/2015 Inactive Medication Administered No Medication Administered data Immunizations Vaccine Codes Date Status Pneumococcal CVX: 133 05/10/2016 completed Assessments Condition Codes Effective Dates Localized edema ICD-10: R60.0 ICD-9: 782.3 01/09/2017 Urgency of urination ICD-10: R39.15 ICD-9: 788.63 01/09/2017 Frequency of micturition ICD-10: R35.0 ICD-9: 788.41 01/09/2017 Type 2 diabetes mellitus with hyperglycemia ICD-10: E11.65 ICD-9: 250.02 09/27/2016 Parkinson's disease ICD-10: G20 ICD-9: 332.0 09/27/2016 Bilateral primary osteoarthritis of hip ICD-10: M16.0 ICD-9: 715.15 09/27/2016 Essential (primary) hypertension ICD-10: I10 ICD-9: 401.9 09/27/2016 Low back pain ICD-10: M54.5 ICD-9: 724.2 07/29/2016 Pain in right toe(s) ICD-10: M79.674 ICD-9: 729.5 07/29/2016 Pain in left hip ICD-10: M25.552 ICD-9: 719.45 06/28/2016 Muscle weakness (generalized) ICD-10: M62.81 ICD-9: 728.87 03/26/2016 Left upper quadrant pain ICD-10: R10.12 ICD-9: 789.02 03/07/2016 Dysuria ICD-10: R30.0 ICD-9: 788.1 03/07/2016 Encounter for follow-up examination after completed treatment for conditions other than malignant neoplasm ICD-10: Z09 ICD-9: V67.9 01/24/2016 Other skin changes ICD-10: R23.8 ICD-9: 709.9 01/16/2016 Unsteadiness on feet ICD-10: R26.81 ICD-9: 781.2 09/08/2015 Pain in unspecified hip ICD-10: M25.559 ICD-9: 719.45 02/16/2015 ESSENTIAL HYPERTENSION ICD-9: 401.9 01/16 Dysuria ICD-9: 788.1 01/16/2015 Parkinson's disease ICD-9: 332.0 2014 UTI (urinary tract infection) ICD-9: 599.0 12/09/2014 DM W/O COMPLICATION TYPE II, 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 12/09/2014 EDEMA ICD-9: 782.3 12/09/2014 DIABETES TYPE II ICD-9: 250.00 2014 Back pain ICD-9: 724.5 07/19/2014 MALAISE AND FATIGUE ICD-9: 780.79 2014 Cellulitis ICD-9: 682.9 07/19/2014 Hip pain ICD-9: 719.45 07/19/2014 Chronic osteoarthritis ICD-9: 715.90 09/2014 Bilateral arm weakness ICD-9: 729.89 09/2014 Restless leg ICD-9: 333.94 03/18/2014 OBESITY ICD-9: 278.00 03/18/2014 Reason For Visit Reason For Visit Effective Dates Notes edema 01/09/2017 hip pain 09/27/2016 toe pain due to infection 07/29/2016 shoulder pain 06/28/2016 right edema 03/26/2016 flank pain 03/07/2016 edema 01/24/2016 edema 01/19/2016 edema 01/16/2016 edema 12/26/2015 edema 10/12/2015 edema 09/08/2015 diabetes mellitus 08/21/2015 back pain 02/16/2015 bladder incontinence 01/16/2015 pain edema 12/09/2014 diabetes mellitus 09/28/2014 wound LLE- seen by Dr. Montelongo. She had a fall from . It was open Culture was negative. edema 07/19/2014 lt arm and lt leg skin lesion 07/12/2014 lt arm and lt leg edema 05/03/2014 diabetes mellitus 03/31/2014 doing probe stimulation with Dr. Gandhi diabetes mellitus 03/18/2014 doing probe stimulation with Dr. Gandhi Results Observation Observation Code Item Item Code Result Date Culture Urine [id number] URINE CULTURE SEE NOTES 05/02/2017 Culture Urine [id number] Continued Results 05/02/2017 Urine Culture Ucult Complete Growth of aerobe sent to ref lab 04/30/2017 Urinalysis Ord28 U-Color Yellow 04/29/2017 Urinalysis Ord28 U-Clarity Clear 04/29/2017 Urinalysis Ord28 U-Gluc Negative 04/29/2017 Urinalysis Ord28 U-Bili Negative 04/29/2017 Urinalysis Ord28 U-Ketone Negative 04/29/2017 Urinalysis Ord28 U-SG 1.010 04/29/2017 Urinalysis Ord28 U-Blood Negative 04/29/2017 Urinalysis Ord28 U-pH 7.0 04/29/2017 Urinalysis Ord28 U-Protein Negative 04/29/2017 Urinalysis Ord28 U-Urobilin 0.2 E.U./dL E.U./dL 04/29/2017 Urinalysis Ord28 U-Nitrites Negative 04/29/2017 Urinalysis Ord28 U-Leuk Moderate 04/29/2017 Urinalysis Ord28 U-Bact 1+ 04/29/2017 Urinalysis Ord28 U-Squamous Epi 5-10 per/HPF 04/29/2017 Urinalysis Ord28 U-Crystal None per/HPF 04/29/2017 Urinalysis Ord28 U-Mucus None 04/29/2017 Urinalysis Ord28 U-Renal tubular epi None 04/29/2017 Urinalysis Ord28 U-RBC None per/HPF 04/29/2017 Urinalysis Ord28 U-Transitional epi None per/HPF 04/29/2017 Urinalysis Ord28 U-WBC 5-10 per/HPF 04/29/2017 Urinalysis Ord28 U-Cast None per/HPF 04/29/2017 Urinalysis Ord28 U-VOL VOLUME SUFFICIENT (10mL) 04/29/2017 Urinalysis Ord28 U-Yeast NEGATIVE 04/29/2017 Urinalysis Ord28 U-Com Culture to follow 04/29/2017 Culture Urine [id number] URINE CULTURE SEE NOTES 04/07/2017 Culture Urine [id number] Continued Results 04/07/2017 Urine Culture Ucult Complete >100,000 col/ml aerobic growth sent to ref lab 04/05/2017 Urinalysis Ord28 U-Color Yellow 04/04/2017 Urinalysis Ord28 U-Clarity Clear 04/04/2017 Urinalysis Ord28 U-Gluc Negative 04/04/2017 Urinalysis Ord28 U-Bili Negative 04/04/2017 Urinalysis Ord28 U-Ketone Negative 04/04/2017 Urinalysis Ord28 U-SG <=1.005 04/04/2017 Urinalysis Ord28 U-Blood Trace-intact 04/04/2017 Urinalysis Ord28 U-pH 6.0 04/04/2017 Urinalysis Ord28 U-Protein Negative 04/04/2017 Urinalysis Ord28 U-Urobilin 0.2 E.U./dL E.U./dL 04/04/2017 Urinalysis Ord28 U-Nitrites Negative 04/04/2017 Urinalysis Ord28 U-Leuk Negative 04/04/2017 Urinalysis Ord28 U-Bact TRACE 04/04/2017 Urinalysis Ord28 U-Squamous Epi 0-5 per/HPF 04/04/2017 Urinalysis Ord28 U-Crystal None per/HPF 04/04/2017 Urinalysis Ord28 U-Mucus None 04/04/2017 Urinalysis Ord28 U-Renal tubular epi None 04/04/2017 Urinalysis Ord28 U-RBC None per/HPF 04/04/2017 Urinalysis Ord28 U-Transitional epi None per/HPF 04/04/2017 Urinalysis Ord28 U-WBC 0-2 per/HPF 04/04/2017 Urinalysis Ord28 U-Cast None per/HPF 04/04/2017 Urinalysis Ord28 U-VOL VOLUME SUFFICIENT (10mL) 04/04/2017 Urinalysis Ord28 U-Yeast NEGATIVE 04/04/2017 Urinalysis Ord28 U-Com Culture to follow 04/04/2017 Culture Urine [id number] URINE CULTURE SEE NOTES 01/13/2017 Culture Urine [id number] Continued Results 01/13/2017 Urine Culture Ucult Complete >100,000 col/ml aerobic growth sent to ref lab 01/11/2017 Urinalysis Ord28 U-Color Yellow 01/10/2017 Urinalysis Ord28 U-Clarity Slightly Cloudy 01/10/2017 Urinalysis Ord28 U-Gluc Negative 01/10/2017 Urinalysis Ord28 U-Bili Negative 01/10/2017 Urinalysis Ord28 U-Ketone Negative 01/10/2017 Urinalysis Ord28 U-SG <=1.005 01/10/2017 Urinalysis Ord28 U-Blood Negative 01/10/2017 Urinalysis Ord28 U-pH 5.0 01/10/2017 Urinalysis Ord28 U-Protein Negative 01/10/2017 Urinalysis Ord28 U-Urobilin 0.2 E.U./dL E.U./dL 01/10/2017 Urinalysis Ord28 U-Nitrites Negative 01/10/2017 Urinalysis Ord28 U-Leuk Small 01/10/2017 Urinalysis Ord28 U-Bact 4+ 01/10/2017 Urinalysis Ord28 U-Squamous Epi 0-5 per/HPF 01/10/2017 Urinalysis Ord28 U-Crystal None per/HPF 01/10/2017 Urinalysis Ord28 U-Mucus None 01/10/2017 Urinalysis Ord28 U-Renal tubular epi None 01/10/2017 Urinalysis Ord28 U-RBC None per/HPF 01/10/2017 Urinalysis Ord28 U-Transitional epi None per/HPF 01/10/2017 Urinalysis Ord28 U-WBC 20-30 per/HPF 01/10/2017 Urinalysis Ord28 U-Cast None per/HPF 01/10/2017 Urinalysis Ord28 U-VOL VOLUME SUFFICIENT (10mL) 01/10/2017 Urinalysis Ord28 U-Com Culture to follow 01/10/2017 Urinalysis Ord28 U-Yeast NEGATIVE 01/10/2017 Urinalysis Ord28 U-Color Yellow 11/25/2016 Urinalysis Ord28 U-Clarity Clear 11/25/2016 Urinalysis Ord28 U-Gluc Negative 11/25/2016 Urinalysis Ord28 U-Bili Negative 11/25/2016 Urinalysis Ord28 U-Ketone Negative 11/25/2016 Urinalysis Ord28 U-SG 1.010 11/25/2016 Urinalysis Ord28 U-Blood Negative 11/25/2016 Urinalysis Ord28 U-pH 7.0 11/25/2016 Urinalysis Ord28 U-Protein Negative 11/25/2016 Urinalysis Ord28 U-Urobilin 0.2 E.U./dL E.U./dL 11/25/2016 Urinalysis Ord28 U-Nitrites Negative 11/25/2016 Urinalysis Ord28 U-Leuk Negative 11/25/2016 Urinalysis Ord28 U-Bact None 11/25/2016 Urinalysis Ord28 U-Squamous Epi None per/HPF 11/25/2016 Urinalysis Ord28 U-Crystal None per/HPF 11/25/2016 Urinalysis Ord28 U-Mucus None 11/25/2016 Urinalysis Ord28 U-Renal tubular epi None 11/25/2016 Urinalysis Ord28 U-RBC None per/HPF 11/25/2016 Urinalysis Ord28 U-Transitional epi None per/HPF 11/25/2016 Urinalysis Ord28 U-WBC None per/HPF 11/25/2016 Urinalysis Ord28 U-Cast None per/HPF 11/25/2016 Urinalysis Ord28 U-VOL VOLUME SUFFICIENT (10mL) 11/25/2016 Urinalysis Ord28 U-Yeast NEGATIVE 11/25/2016 Urinalysis Ord28 U-Com No culture indicated, Urine saved if culture needed ( specimen acceptable for 48 hours from collection if refrigerated) 11/25/2016 Uric Acid Ord77 Uric A 4.5 mg/dL 07/29/2016 Comp Metabolic Ips056 NA 134 mEq/L 06/26/2016 Comp Metabolic Lgt673 K 4.8 mEq/L 06/26/2016 Comp Metabolic Ehb853 CL 98 mEq/L 06/26/2016 Comp Metabolic Erx746 CO2 28.0 mEq/L 06/26/2016 Comp Metabolic Kkn547 ANION GAP 13 06/26/2016 Comp Metabolic Fbs350 GLUCOSE 270 mg/dL 06/26/2016 Comp Metabolic Uek839 Creat 0.9 mg/dL 06/26/2016 Comp Metabolic Owm286 eGFR 68 ml/min/1.73m2 06/26/2016 Comp Metabolic Jib110 BUN 22 mg/dL 06/26/2016 Comp Metabolic Bto805 B/C Ratio 25.9 Ratio 06/26/2016 Comp Metabolic Bru144 CALCIUM 9.0 mg/dL 06/26/2016 Comp Metabolic Mck015 ALK PHOS 119 U/L 06/26/2016 Comp Metabolic Lsi381 AST(SGOT) 34 U/L 06/26/2016 Comp Metabolic Uym071 ALT(SGPT) 18 U/L 06/26/2016 Comp Metabolic Hpx927 BILI T 0.5 mg/dL 06/26/2016 Comp Metabolic Fsd460 ALBUMIN 4.1 g/dL 06/26/2016 Comp Metabolic Tkv179 TPRO 6.8 g/dL 06/26/2016 Comp Metabolic Rlu552 GLOB 2.7 g/dL 06/26/2016 Comp Metabolic Uma626 A/G Ratio 1.5 Ratio 06/26/2016 Comp Metabolic Qkl897 Osmo 281 mOsmo 06/26/2016 Tsh Ord6 hTSH II 1.57 uIU/mL 06/26/2016 %Hba1C Oim341 % HbA1c 69914-5 7.6 % 06/26/2016 %Hba1C Sci9[address] 171 mg/dL 06/26/2016 Lipid Ord30 CHOL 225 mg/dL 06/26/2016 Lipid Ord30 HDL 49.0 mg/dl 06/26/2016 Lipid Ord30 TRIG 208 mg/dL 06/26/2016 Lipid Ord30 LDL 134 mg/dL 06/26/2016 Lipid Ord30 C/HDL 4.6 Ratio 06/26/2016 Vitamin D 25 Oh Jrw7115 VITAMIN D, 25 HYDROXY 65.10 ng/mL Culture Urine [id number] URINE CULTURE SEE NOTES 03/11/2016 Culture Urine [id number] Continued Results 03/11/2016 Urine Culture Ucult Complete >100,000 col/ml aerobic growth sent to ref lab 03/08/2016 Metabolic Ord15 NA 137 mEq/L 01/24/2016 Metabolic Ord15 K 4.8 mEq/L 01/24/2016 Metabolic Ord15 CL 100 mEq/L 01/24/2016 Metabolic Ord15 CO2 23.0 mEq/L 01/24/2016 Metabolic Ord15 GLUCOSE 96 mg/dL 01/24/2016 Metabolic Ord15 BUN 17 mg/dL 01/24/2016 Metabolic Ord15 Creat 0.9 mg/dL 01/24/2016 Metabolic Ord15 B/C Ratio 18.5 Ratio 01/24/2016 Metabolic Ord15 eGFR 62 ml/min/1.73m2 01/24/2016 Metabolic Ord15 Osmo 275 mOsmo 01/24/2016 Metabolic Ord15 ANION GAP 19 01/24/2016 Metabolic Ord15 CALCIUM 9.5 mg/dL 01/24/2016 Culture Urine [id number] URINE CULTURE SEE NOTES 12/29/2015 Culture Urine [id number] Continued Results 12/29/2015 Urine Culture Ucult Complete >100,000 col/ml aerobic growth sent to ref lab 12/27/2015 %Hba1C Cuw608 % HbA1c 61130-9 8.3 % 12/26/2015 %Hba1C Vix088 Gluc Ave 192 mg/dL 12/26/2015 Culture Urine [id number] URINE CULTURE SEE NOTES 10/09/2015 Culture Urine [id number] Continued Results 10/09/2015 Urine Culture Ucult Complete >100,000 col/ml aerobic growth sent to ref lab 10/05/2015 Urinalysis Ord28 U-Color Yellow 10/04/2015 Urinalysis Ord28 U-Clarity Clear 10/04/2015 Urinalysis Ord28 U-Gluc Negative 10/04/2015 Urinalysis Ord28 U-Bili Negative 10/04/2015 Urinalysis Ord28 U-Ketone Negative 10/04/2015 Urinalysis Ord28 U-SG 1.015 10/04/2015 Urinalysis Ord28 U-Blood Negative 10/04/2015 Urinalysis Ord28 U-pH 7.0 10/04/2015 Urinalysis Ord28 U-Protein Negative 10/04/2015 Urinalysis Ord28 U-Urobilin 0.2 E.U./dL E.U./dL 10/04/2015 Urinalysis Ord28 U-Nitrites Negative 10/04/2015 Urinalysis Ord28 U-Leuk Trace 10/04/2015 Urinalysis Ord28 U-Bact 3+ 10/04/2015 Urinalysis Ord28 U-Squamous Epi 5-10 per/HPF 10/04/2015 Urinalysis Ord28 U-Crystal None per/HPF 10/04/2015 Urinalysis Ord28 U-Mucus None 10/04/2015 Urinalysis Ord28 U-Renal tubular epi None 10/04/2015 Urinalysis Ord28 U-RBC None per/HPF 10/04/2015 Urinalysis Ord28 U-Transitional epi None per/HPF 10/04/2015 Urinalysis Ord28 U-WBC 3-5 per/HPF 10/04/2015 Urinalysis Ord28 U-Cast None per/HPF 10/04/2015 Urinalysis Ord28 U-VOL VOLUME SUFFICIENT (10mL) 10/04/2015 Urinalysis Ord28 U-Yeast NEGATIVE 10/04/2015 Urinalysis Ord28 U-Com Culture to follow 10/04/2015 Tsh Ord6 hTSH II 1.24 uIU/mL 09/13/2015 Comp Metabolic Mvn940 NA 137 mEq/L 09/13/2015 Comp Metabolic Spr444 K 4.5 mEq/L 09/13/2015 Comp Metabolic Qcj148 CL 100 mEq/L 09/13/2015 Comp Metabolic Lvr403 CO2 28.0 mEq/L 09/13/2015 Comp Metabolic Bxw547 ANION GAP 14 09/13/2015 Comp Metabolic Ayw854 GLUCOSE 124 mg/dL 09/13/2015 Comp Metabolic Qmd353 Creat 0.9 mg/dL 09/13/2015 Comp Metabolic Gif746 eGFR 65 ml/min/1.73m2 09/13/2015 Comp Metabolic Yty778 BUN 20 mg/dL 09/13/2015 Comp Metabolic Tcf971 B/C Ratio 22.7 Ratio 09/13/2015 Comp Metabolic Hsp188 CALCIUM 8.8 mg/dL 09/13/2015 Comp Metabolic Ssw518 ALK PHOS 64 U/L 09/13/2015 Comp Metabolic Aea912 AST(SGOT) 16 U/L 09/13/2015 Comp Metabolic Vki460 ALT(SGPT) 13 U/L 09/13/2015 Comp Metabolic Cda757 BILI T 0.7 mg/dL 09/13/2015 Comp Metabolic Kke541 ALBUMIN 3.9 g/dL 09/13/2015 Comp Metabolic Ikk935 TPRO 6.7 g/dL 09/13/2015 Comp Metabolic Afm419 GLOB 2.8 g/dL 09/13/2015 Comp Metabolic Jqt039 A/G Ratio 1.4 Ratio 09/13/2015 Comp Metabolic Qhq537 Osmo 278 mOsmo 09/13/2015 Cbc With Differential Ord2 WBC 6.56 K/ul 09/13/2015 Cbc With Differential Ord2 RBC 4.38 M/ul 09/13/2015 Cbc With Differential Ord2 HGB 13.2 g/dl 09/13/2015 Cbc With Differential Ord2 Neut% 66.4 % 09/13/2015 Cbc With Differential Ord2 HCT 40.8 % 09/13/2015 Cbc With Differential Ord2 MCV 93.2 fl 09/13/2015 Cbc With Differential Ord2 Lymph% 25.3 % 09/13/2015 Cbc With Differential Ord2 MCH 30.1 pg 09/13/2015 Cbc With Differential Ord2 [place]% 6.6 % 09/13/2015 Cbc With Differential Ord2 MCHC 32.4 pg 09/13/2015 Cbc With Differential Ord2 Eos% 1.4 % 09/13/2015 Cbc With Differential Ord2 PLT 192 K/ul 09/13/2015 Cbc With Differential Ord2 Baso% 0.3 % 09/13/2015 Cbc With Differential Ord2 RDW 15.0 % 09/13/2015 Cbc With Differential Ord2 Neut ABS# 4.36 K/ul 09/13/2015 Cbc With Differential Ord2 Lymph ABS# 1.66 K/ul 09/13/2015 Cbc With Differential Ord2 [place] ABS# 0.4 K/ul 09/13/2015 Cbc With Differential Ord2 Eos ABS# 0.1 K/ul 09/13/2015 Cbc With Differential Ord2 Baso ABS# 0.0 K/ul 09/13/2015 Cbc With Differential Ord2 New Analyzer Notice Please note new ref ranges starting 05-10-2015 due to implemntation of new five part differential hematolgy analyzer. 09/13/2015 %Hba1C Vus947 % HbA1c 08768-8 9.1 % 09/13/2015 %Hba1C Ngp222 Gluc Ave 214 mg/dL 09/13/2015 Urine Culture Ucult Preliminary No Growth Day 1 09/11/2015 Urine Culture Ucult Complete No Growth Day 2 09/11/2015 Urinalysis Ord28 U-Color Yellow 09/08/2015 Urinalysis Ord28 U-Clarity Slightly Cloudy 09/08/2015 Urinalysis Ord28 U-Gluc 500 mg/dL 09/08/2015 Urinalysis Ord28 U-Bili Negative 09/08/2015 Urinalysis Ord28 U-Ketone 15 mg/dL 09/08/2015 Urinalysis Ord28 U-SG 1.020 09/08/2015 Urinalysis Ord28 U-Blood Negative 09/08/2015 Urinalysis Ord28 U-pH 5.5 09/08/2015 Urinalysis Ord28 U-Protein Trace 09/08/2015 Urinalysis Ord28 U-Urobilin 0.2 E.U./dL E.U./dL 09/08/2015 Urinalysis Ord28 U-Nitrites Negative 09/08/2015 Urinalysis Ord28 U-Leuk Small 09/08/2015 Urinalysis Ord28 U-Bact TRACE 09/08/2015 Urinalysis Ord28 U-Squamous Epi 0-5 per/HPF 09/08/2015 Urinalysis Ord28 U-Crystal None per/HPF 09/08/2015 Urinalysis Ord28 U-Mucus 1+ 09/08/2015 Urinalysis Ord28 U-Renal tubular epi None 09/08/2015 Urinalysis Ord28 U-RBC None per/HPF 09/08/2015 Urinalysis Ord28 U-Transitional epi None per/HPF 09/08/2015 Urinalysis Ord28 U-WBC 50-60 per/HPF 09/08/2015 Urinalysis Ord28 U-Cast None per/HPF 09/08/2015 Urinalysis Ord28 U-VOL VOLUME SUFFICIENT (10mL) 09/08/2015 Urinalysis Ord28 U-Yeast NEGATIVE 09/08/2015 Urinalysis Ord28 U-Com Culture to follow 09/08/2015 Culture Urine [id number] URINE CULTURE SEE NOTES 03/03/2015 Culture Urine [id number] Continued Results 03/03/2015 Urine Culture Ucult Complete >100,000 col/ml aerobic growth sent to ref lab 03/01/2015 Urinalysis Ord28 U-Color Yellow 02/28/2015 Urinalysis Ord28 U-Clarity Slightly Cloudy 02/28/2015 Urinalysis Ord28 U-Gluc Negative 02/28/2015 Urinalysis Ord28 U-Bili Negative 02/28/2015 Urinalysis Ord28 U-Ketone Trace 02/28/2015 Urinalysis Ord28 U-SG 1.015 02/28/2015 Urinalysis Ord28 U-Blood Negative 02/28/2015 Urinalysis Ord28 U-pH 5.5 02/28/2015 Urinalysis Ord28 U-Protein 30 mg/dL 02/28/2015 Urinalysis Ord28 U-Urobilin 0.2 E.U./dL E.U./dL 02/28/2015 Urinalysis Ord28 U-Nitrites Negative 02/28/2015 Urinalysis Ord28 U-Leuk Moderate 02/28/2015 Urinalysis Ord28 U-Bact 1+ 02/28/2015 Urinalysis Ord28 U-Squamous Epi 0-5 per/HPF 02/28/2015 Urinalysis Ord28 U-Crystal None per/HPF 02/28/2015 Urinalysis Ord28 U-Mucus None 02/28/2015 Urinalysis Ord28 U-Renal tubular epi None 02/28/2015 Urinalysis Ord28 U-RBC None per/HPF 02/28/2015 Urinalysis Ord28 U-Transitional epi None per/HPF 02/28/2015 Urinalysis Ord28 U-WBC TNTC per/HPF 02/28/2015 Urinalysis Ord28 U-Cast None per/HPF 02/28/2015 Urinalysis Ord28 U-VOL VOLUME SUFFICIENT (10mL) 02/28/2015 Urinalysis Ord28 U-Yeast NEGATIVE 02/28/2015 Urinalysis Ord28 U-Com Culture to follow 02/28/2015 Urine Culture Ucult Preliminary No Growth Day 1 01/19/2015 Urine Culture Ucult Complete No Growth Day 2 01/19/2015 Urinalysis Ord28 U-Color Yellow 01/17/2015 Urinalysis Ord28 U-Clarity Clear 01/17/2015 Urinalysis Ord28 U-Gluc 100 mg/dL 01/17/2015 Urinalysis Ord28 U-Bili Negative 01/17/2015 Urinalysis Ord28 U-Ketone Trace 01/17/2015 Urinalysis Ord28 U-SG 1.015 01/17/2015 Urinalysis Ord28 U-Blood Negative 01/17/2015 Urinalysis Ord28 U-pH 5.0 01/17/2015 Urinalysis Ord28 U-Protein Negative 01/17/2015 Urinalysis Ord28 U-Urobilin 0.2 E.U./dL E.U./dL 01/17/2015 Urinalysis Ord28 U-Nitrites Negative 01/17/2015 Urinalysis Ord28 U-Leuk Small 01/17/2015 Urinalysis Ord28 U-Bact TRACE 01/17/2015 Urinalysis Ord28 U-Squamous Epi None per/HPF 01/17/2015 Urinalysis Ord28 U-Crystal None per/HPF 01/17/2015 Urinalysis Ord28 U-Mucus None 01/17/2015 Urinalysis Ord28 U-Renal tubular epi None 01/17/2015 Urinalysis Ord28 U-RBC RARE per/HPF 01/17/2015 Urinalysis Ord28 U-Transitional epi None per/HPF 01/17/2015 Urinalysis Ord28 U-WBC 5-10 per/HPF 01/17/2015 Urinalysis Ord28 U-Cast None per/HPF 01/17/2015 Urinalysis Ord28 U-VOL VOLUME SUFFICIENT (10mL) 01/17/2015 Urinalysis Ord28 U-Com Culture to follow 01/17/2015 Urinalysis Ord28 U-Yeast NEGATIVE 01/17/2015 Vitamin D 25 Oh Taz8012 VITAMIN D, 25 HYDROXY 48.78 ng/mL Comp Metabolic Tkg753 NA 135 mEq/L 12/13/2014 Comp Metabolic Rvc951 K 4.5 mEq/L 12/13/2014 Comp Metabolic Jxz799 CL 101 mEq/L 12/13/2014 Comp Metabolic Ddh515 CO2 28.0 mEq/L 12/13/2014 Comp Metabolic Hgo386 ANION GAP 11 12/13/2014 Comp Metabolic Xan186 GLUCOSE 90 mg/dL 12/13/2014 Comp Metabolic Reh650 Creat 1.1 mg/dL 12/13/2014 Comp Metabolic Otz990 eGFR 50 ml/min/1.73m2 12/13/2014 Comp Metabolic Ffj964 BUN 19 mg/dL 12/13/2014 Comp Metabolic Xwp750 B/C Ratio 17.1 Ratio 12/13/2014 Comp Metabolic Cmz781 CALCIUM 9.3 mg/dL 12/13/2014 Comp Metabolic Erc393 ALK PHOS 74 U/L 12/13/2014 Comp Metabolic Xtu209 AST(SGOT) 16 U/L 12/13/2014 Comp Metabolic Cls512 ALT(SGPT) 3 U/L 12/13/2014 Comp Metabolic Lko520 BILI T 0.4 mg/dL 12/13/2014 Comp Metabolic Jnk519 ALBUMIN 3.7 g/dL 12/13/2014 Comp Metabolic Kpa137 TPRO 6.4 g/dL 12/13/2014 Comp Metabolic Ehn683 GLOB 2.7 g/dL 12/13/2014 Comp Metabolic Yey338 A/G Ratio 1.4 Ratio 12/13/2014 Comp Metabolic Uhg485 Osmo 272 mOsmo 12/13/2014 Tsh Ord6 hTSH II 1.22 uIU/mL 12/13/2014 Cbc With Differential Ord2 WBC 5.6 K/uL 12/13/2014 Cbc With Differential Ord2 LYM 1.6 K/uL 12/13/2014 Cbc With Differential Ord2 LYM% 28.1 % 12/13/2014 Cbc With Differential Ord2 NEUT/GRAN 3.7 K/uL 12/13/2014 Cbc With Differential Ord2 NEUT/GRAN % 65.5 % 12/13/2014 Cbc With Differential Ord2 MID 0.4 K/uL 12/13/2014 Cbc With Differential Ord2 MID% 6.4 % 12/13/2014 Cbc With Differential Ord2 RBC 4.07 M/uL 12/13/2014 Cbc With Differential Ord2 HGB 11.6 g/dL 12/13/2014 Cbc With Differential Ord2 HCT 36.1 % 12/13/2014 Cbc With Differential Ord2 MCV 89 fL 12/13/2014 Cbc With Differential Ord2 MCH 29 pg 12/13/2014 Cbc With Differential Ord2 MCHC 32 g/dL 12/13/2014 Cbc With Differential Ord2 PLT 217 K/uL 12/13/2014 Cbc With Differential Ord2 RDW 15.1 % 12/13/2014 %Hba1C Xxp718 % HbA1c 27483-0 7.2 % 12/13/2014 %Hba1C Oym502 Gluc Ave 160 mg/dL 12/13/2014 Review of Systems System Result Effective Dates Constitutional No recent illness 2016 Constitutional No chills 01/09/2017 Constitutional No diaphoresis 01/09/2017 Constitutional No fatigue 01/09/2017 Constitutional No fever 01/09/2017 Constitutional No malaise 01/09/2017 Ears/Nose/Throat/Neck No nasal allergies 01/09/2017 Ears/Nose/Throat/Neck No nasal discharge 01/09/2017 Cardiovascular No chest pain/pressure Cardiovascular edema 01/09/2017 Respiratory No cough 01/09/2017 Genitourinary/Nephrology No dysuria 01/09 Dermatologic No rash 01/09/2017 Eyes No eye erythema 01/09/2017 Respiratory No dyspnea 01/09/2017 Gastrointestinal No abdominal pain 2016 Gastrointestinal No constipation 2016 Gastrointestinal No diarrhea 01/09/2017 Genitourinary/Nephrology urinary urgency 01/09/2017 Genitourinary/Nephrology urinary frequency 01/09/2017 Musculoskeletal joint complaint 2016 Dermatologic scar 01/09/2017 Neurologic No alteration of consciousness 01/09/2017 Constitutional No recent illness 2016 Constitutional No anorexia 09/27/2016 Constitutional No night sweats 2016 Constitutional No chills 09/27/2016 Constitutional No diaphoresis 09/27/2016 Constitutional No fatigue 09/27/2016 Constitutional No fever 09/27/2016 Constitutional No insomnia 09/27/2016 Constitutional No malaise 09/27/2016 Ears/Nose/Throat/Neck No dizziness 2016 Ears/Nose/Throat/Neck No headache 2016 Ears/Nose/Throat/Neck No nasal allergies 09/27/2016 Ears/Nose/Throat/Neck No nasal discharge 09/27/2016 Cardiovascular No chest pain/pressure 05/2016 Cardiovascular edema 09/27/2016 Respiratory No cough 09/27/2016 Respiratory No dyspnea on exertion 2016 Respiratory No dyspnea 09/27/2016 Gastrointestinal No abdominal pain 2016 Gastrointestinal No constipation 2016 Gastrointestinal No diarrhea 09/27/2016 Musculoskeletal No myalgias 09/27/2016 Dermatologic No rash 09/27/2016 Dermatologic No sores 09/27/2016 Psychiatric No anxiety 09/27/2016 Psychiatric No depression 09/27/2016 Musculoskeletal joint complaint 2016 Genitourinary/Nephrology No dysuria 09/27 Constitutional No recent illness 2016 Constitutional No chills 07/29/2016 Constitutional No fever 07/29/2016 Eyes No eye erythema 07/29/2016 Ears/Nose/Throat/Neck nasal allergies 06/2016 Ears/Nose/Throat/Neck nasal discharge 06/2016 Cardiovascular No chest pain/pressure 06/2016 Cardiovascular No dyspnea 07/29/2016 Respiratory No dyspnea 07/29/2016 Respiratory No chest congestion 2016 Gastrointestinal No abdominal pain 2016 Gastrointestinal constipation 07/29/2016 Gastrointestinal No diarrhea 07/29/2016 Gastrointestinal No vomiting 07/29/2016 Gastrointestinal No nausea 07/29/2016 Musculoskeletal back pain 07/29/2016 Dermatologic No rash 07/29/2016 Neurologic No alteration of consciousness 07/29/2016 Neurologic No mental status change 2016 Constitutional No anorexia 06/28/2016 Constitutional No night sweats 2016 Constitutional No chills 06/28/2016 Constitutional No diaphoresis 06/28/2016 Constitutional No fatigue 06/28/2016 Constitutional No fever 06/28/2016 Constitutional No insomnia 06/28/2016 Constitutional No malaise 06/28/2016 Ears/Nose/Throat/Neck No dizziness 2016 Ears/Nose/Throat/Neck No headache 2016 Ears/Nose/Throat/Neck No nasal allergies 06/28/2016 Ears/Nose/Throat/Neck No nasal discharge 06/28/2016 Cardiovascular No chest pain/pressure 06/2016 Cardiovascular edema 06/28/2016 Respiratory No cough 06/28/2016 Respiratory No dyspnea on exertion 2016 Respiratory No dyspnea 06/28/2016 Gastrointestinal No abdominal pain 2016 Gastrointestinal constipation 06/28/2016 Gastrointestinal No diarrhea 06/28/2016 Genitourinary/Nephrology No dysuria 06/28 Genitourinary/Nephrology urinary frequency 06/28/2016 Genitourinary/Nephrology urinary incontinence 06/28/2016 Musculoskeletal muscle weakness 2016 Musculoskeletal No myalgias 06/28/2016 Dermatologic No rash 06/28/2016 Dermatologic No sores 06/28/2016 Psychiatric No anxiety 06/28/2016 Psychiatric No depression 06/28/2016 Constitutional No recent illness 2016 Musculoskeletal joint complaint 2016 Musculoskeletal back pain 06/28/2016 Constitutional No recent illness 2015 Constitutional No anorexia 03/26/2016 Constitutional No night sweats 2015 Constitutional No chills 03/26/2016 Constitutional No diaphoresis 03/26/2016 Constitutional No fatigue 03/26/2016 Constitutional No fever 03/26/2016 Constitutional No insomnia 03/26/2016 Constitutional No malaise 03/26/2016 Ears/Nose/Throat/Neck No dizziness 2015 Ears/Nose/Throat/Neck No headache 2015 Ears/Nose/Throat/Neck No nasal allergies 03/26/2016 Ears/Nose/Throat/Neck No nasal discharge 03/26/2016 Cardiovascular No chest pain/pressure Cardiovascular edema 03/26/2016 Respiratory No cough 03/26/2016 Respiratory No dyspnea on exertion 2015 Respiratory No dyspnea 03/26/2016 Gastrointestinal No abdominal pain 2015 Gastrointestinal No constipation 2015 Gastrointestinal No diarrhea 03/26/2016 Genitourinary/Nephrology No dysuria 03/26 Genitourinary/Nephrology urinary frequency 03/26/2016 Genitourinary/Nephrology urinary incontinence 03/26/2016 Musculoskeletal muscle weakness 2015 Musculoskeletal No myalgias 03/26/2016 Dermatologic No rash 03/26/2016 Dermatologic No sores 03/26/2016 Psychiatric No anxiety 03/26/2016 Psychiatric No depression 03/26/2016 Constitutional No recent illness 2015 Constitutional No chills 03/07/2016 Constitutional No fever 03/07/2016 Eyes No eye erythema 03/07/2016 Ears/Nose/Throat/Neck No nasal discharge 03/07/2016 Cardiovascular No chest pain/pressure 01/2016 Cardiovascular No dyspnea 03/07/2016 Respiratory No cough 03/07/2016 Gastrointestinal No abdominal pain 2015 Genitourinary/Nephrology flank pain 03/07 Musculoskeletal back pain 03/07/2016 Dermatologic No rash 03/07/2016 Neurologic No alteration of consciousness 03/07/2016 Neurologic No mental status change 2015 Constitutional No recent illness 2015 Constitutional No chills 01/24/2016 Constitutional No diaphoresis 01/24/2016 Constitutional No fever 01/24/2016 Ears/Nose/Throat/Neck No nasal allergies 01/24/2016 Ears/Nose/Throat/Neck No nasal discharge 01/24/2016 Cardiovascular No chest pain/pressure Cardiovascular No dyspnea 01/24/2016 Respiratory No chest congestion 2015 Respiratory No cough 01/24/2016 Respiratory No dyspnea 01/24/2016 Neurologic No alteration of consciousness 01/24/2016 Eyes No eye erythema 01/24/2016 Cardiovascular edema 01/24/2016 Musculoskeletal muscle weakness 2015 Dermatologic No rash 01/24/2016 Neurologic No mental status change 2015 Constitutional No recent illness 2015 Constitutional No chills 01/16/2016 Constitutional No diaphoresis 01/16/2016 Constitutional No fever 01/16/2016 Ears/Nose/Throat/Neck No nasal allergies 01/16/2016 Ears/Nose/Throat/Neck No nasal discharge 01/16/2016 Cardiovascular No chest pain/pressure Cardiovascular edema 01/16/2016 Respiratory No cough 01/16/2016 Respiratory No dyspnea on exertion 2015 Respiratory No dyspnea 01/16/2016 Gastrointestinal No abdominal pain 2015 Gastrointestinal No constipation 2015 Gastrointestinal No diarrhea 01/16/2016 Cardiovascular No dyspnea 01/16/2016 Respiratory No chest congestion 2015 Gastrointestinal No vomiting 01/16/2016 Gastrointestinal No nausea 01/16/2016 Musculoskeletal muscle weakness 2015 Dermatologic sores 01/16/2016 Neurologic No alteration of consciousness 01/16/2016 Constitutional No recent illness 2015 Constitutional No anorexia 12/26/2015 Constitutional No night sweats 2015 Constitutional No chills 12/26/2015 Constitutional No diaphoresis 12/26/2015 Constitutional No fatigue 12/26/2015 Constitutional No fever 12/26/2015 Constitutional No insomnia 12/26/2015 Constitutional No malaise 12/26/2015 Ears/Nose/Throat/Neck No dizziness 2015 Ears/Nose/Throat/Neck No headache 2015 Ears/Nose/Throat/Neck No nasal allergies 12/26/2015 Ears/Nose/Throat/Neck No nasal discharge 12/26/2015 Cardiovascular No chest pain/pressure Cardiovascular edema 12/26/2015 Respiratory No cough 12/26/2015 Respiratory No dyspnea on exertion 2015 Respiratory No dyspnea 12/26/2015 Gastrointestinal No abdominal pain 2015 Gastrointestinal No constipation 2015 Gastrointestinal No diarrhea 12/26/2015 Genitourinary/Nephrology No dysuria 12/25 Genitourinary/Nephrology urinary frequency 12/26/2015 Genitourinary/Nephrology urinary incontinence 12/26/2015 Musculoskeletal muscle weakness 2015 Musculoskeletal No myalgias 12/26/2015 Dermatologic No rash 12/26/2015 Dermatologic No sores 12/26/2015 Psychiatric No anxiety 12/26/2015 Psychiatric No depression 12/26/2015 Constitutional No recent illness 2015 Constitutional No anorexia 10/12/2015 Constitutional No night sweats 2015 Constitutional No chills 10/12/2015 Constitutional No diaphoresis 10/12/2015 Constitutional No fatigue 10/12/2015 Constitutional No fever 10/12/2015 Constitutional No insomnia 10/12/2015 Constitutional No malaise 10/12/2015 Ears/Nose/Throat/Neck No dizziness 2015 Ears/Nose/Throat/Neck No headache 2015 Ears/Nose/Throat/Neck No nasal allergies 10/12/2015 Ears/Nose/Throat/Neck No nasal discharge 10/12/2015 Cardiovascular No chest pain/pressure Cardiovascular edema 10/12/2015 Respiratory No cough 10/12/2015 Respiratory No dyspnea on exertion 2015 Respiratory No dyspnea 10/12/2015 Gastrointestinal No abdominal pain 2015 Gastrointestinal No constipation 2015 Gastrointestinal No diarrhea 10/12/2015 Genitourinary/Nephrology No dysuria 10/11 Genitourinary/Nephrology urinary frequency 10/12/2015 Genitourinary/Nephrology urinary incontinence 10/12/2015 Musculoskeletal No joint complaint 2015 Musculoskeletal No muscle weakness 2015 Musculoskeletal No myalgias 10/12/2015 Dermatologic No rash 10/12/2015 Dermatologic No sores 10/12/2015 Constitutional No recent illness 2015 Constitutional No anorexia 09/08/2015 Constitutional No night sweats 2015 Constitutional No chills 09/08/2015 Constitutional No diaphoresis 09/08/2015 Constitutional No fatigue 09/08/2015 Constitutional No fever 09/08/2015 Constitutional No insomnia 09/08/2015 Constitutional No malaise 09/08/2015 Constitutional No weight loss 09/08/2015 Constitutional No weight gain 09/08/2015 Constitutional No obesity 09/08/2015 Ears/Nose/Throat/Neck No dizziness 2015 Ears/Nose/Throat/Neck No headache 2015 Ears/Nose/Throat/Neck No nasal discharge 09/08/2015 Ears/Nose/Throat/Neck No nasal allergies 09/08/2015 Cardiovascular No chest pain/pressure Cardiovascular edema 09/08/2015 Respiratory No cough 09/08/2015 Respiratory No dyspnea on exertion 2015 Respiratory No dyspnea 09/08/2015 Gastrointestinal No constipation 2015 Gastrointestinal No diarrhea 09/08/2015 Gastrointestinal No abdominal pain 2015 Genitourinary/Nephrology No dysuria 09/07 Genitourinary/Nephrology urinary incontinence 09/08/2015 Genitourinary/Nephrology urinary frequency 09/08/2015 Musculoskeletal No myalgias 09/08/2015 Musculoskeletal No muscle weakness 2015 Musculoskeletal No joint complaint 2015 Dermatologic No sores 09/08/2015 Dermatologic No rash 09/08/2015 Constitutional No recent illness 2015 Constitutional No anorexia 08/21/2015 Constitutional No night sweats 2015 Constitutional No chills 08/21/2015 Constitutional No diaphoresis 08/21/2015 Constitutional No fatigue 08/21/2015 Constitutional No fever 08/21/2015 Constitutional No insomnia 08/21/2015 Constitutional No malaise 08/21/2015 Constitutional No weight loss 08/21/2015 Constitutional No weight gain 08/21/2015 Musculoskeletal back pain 08/21/2015 Musculoskeletal joint complaint 2015 Musculoskeletal sciatica 08/21/2015 Eyes No eye discharge 08/21/2015 Eyes No eye erythema 08/21/2015 Ears/Nose/Throat/Neck No dizziness 2015 Ears/Nose/Throat/Neck No headache 2015 Cardiovascular No chest pain/pressure Cardiovascular No edema 08/21/2015 Respiratory No productive sputum 2015 Respiratory No cough 08/21/2015 Gastrointestinal No abdominal pain 2015 Gastrointestinal No constipation 2015 Gastrointestinal diarrhea 08/21/2015 Genitourinary/Nephrology No dysuria 08/20 Dermatologic No rash 08/21/2015 Neurologic memory loss 08/21/2015 Psychiatric No anxiety 08/21/2015 Psychiatric No depression 08/21/2015 Endocrine No dry or coarse skin 2015 Constitutional No recent illness 2014 Constitutional No anorexia 02/16/2015 Constitutional No night sweats 2014 Constitutional No chills 02/16/2015 Constitutional No diaphoresis 02/16/2015 Constitutional No fatigue 02/16/2015 Constitutional No fever 02/16/2015 Constitutional No insomnia 02/16/2015 Constitutional malaise 02/16/2015 Eyes No eye discharge 02/16/2015 Eyes No eye erythema 02/16/2015 Ears/Nose/Throat/Neck No dizziness 2014 Ears/Nose/Throat/Neck No headache 2014 Ears/Nose/Throat/Neck No nasal allergies 02/16/2015 Ears/Nose/Throat/Neck No nasal discharge 02/16/2015 Cardiovascular No chest pain/pressure Cardiovascular No dyspnea 02/16/2015 Cardiovascular edema 02/16/2015 Respiratory No productive sputum 2014 Respiratory No chest congestion 2014 Respiratory No cough 02/16/2015 Gastrointestinal No abdominal pain 2014 Gastrointestinal No constipation 2014 Gastrointestinal diarrhea 02/16/2015 Genitourinary/Nephrology dysuria 2014 Musculoskeletal back pain 02/16/2015 Dermatologic No rash 02/16/2015 Psychiatric No anxiety 02/16/2015 Psychiatric No depression 02/16/2015 Musculoskeletal stiffness 02/16/2015 Musculoskeletal muscle weakness 2014 Neurologic pain, back 02/16/2015 Neurologic memory loss 02/16/2015 Neurologic weakness 02/16/2015 Constitutional No recent illness 2014 Constitutional No anorexia 01/16/2015 Constitutional No night sweats 2014 Constitutional No chills 01/16/2015 Constitutional No diaphoresis 01/16/2015 Constitutional No fatigue 01/16/2015 Constitutional No fever 01/16/2015 Constitutional No insomnia 01/16/2015 Constitutional No malaise 01/16/2015 Constitutional No weight gain 01/16/2015 Constitutional No weight loss 01/16/2015 Eyes No eye erythema 01/16/2015 Eyes No eye discharge 01/16/2015 Ears/Nose/Throat/Neck No dizziness 2014 Ears/Nose/Throat/Neck No headache 2014 Ears/Nose/Throat/Neck No nasal allergies 01/16/2015 Ears/Nose/Throat/Neck No nasal discharge 01/16/2015 Cardiovascular No chest pain/pressure Cardiovascular No dyspnea 01/16/2015 Cardiovascular edema 01/16/2015 Respiratory No productive sputum 2014 Respiratory No chest congestion 2014 Respiratory No cough 01/16/2015 Gastrointestinal No abdominal pain 2014 Gastrointestinal No constipation 2014 Gastrointestinal diarrhea 01/16/2015 Genitourinary/Nephrology dysuria 2014 Musculoskeletal back pain 01/16/2015 Dermatologic No rash 01/16/2015 Neurologic No alteration of consciousness 01/16/2015 Constitutional recent illness 12/09/2014 Constitutional No anorexia 12/09/2014 Constitutional No night sweats 2014 Constitutional No chills 12/09/2014 Constitutional No diaphoresis 12/09/2014 Constitutional fatigue 12/09/2014 Constitutional No insomnia 12/09/2014 Constitutional No fever 12/09/2014 Constitutional No malaise 12/09/2014 Constitutional No weight loss 12/09/2014 Constitutional No weight gain 12/09/2014 Eyes No eye discharge 12/09/2014 Eyes No eye erythema 12/09/2014 Ears/Nose/Throat/Neck No dizziness 2014 Ears/Nose/Throat/Neck No headache 2014 Cardiovascular No chest pain/pressure Cardiovascular No dyspnea 12/09/2014 Cardiovascular edema 12/09/2014 Cardiovascular fatigue 12/09/2014 Respiratory No productive sputum 2014 Respiratory No chest congestion 2014 Gastrointestinal No abdominal pain 2014 Gastrointestinal No constipation 2014 Gastrointestinal No diarrhea 12/09/2014 Genitourinary/Nephrology dysuria 2014 Genitourinary/Nephrology urinary incontinence 12/09/2014 Musculoskeletal joint complaint 2014 Dermatologic No rash 12/09/2014 Neurologic No alteration of consciousness 12/09/2014 Psychiatric No anxiety 12/09/2014 Constitutional recent illness 09/28/2014 Constitutional No chills 09/28/2014 Constitutional fatigue 09/28/2014 Constitutional No fever 09/28/2014 Constitutional No insomnia 09/28/2014 Constitutional malaise 09/28/2014 Eyes No blindness 09/28/2014 Eyes No vision change 09/28/2014 Ears/Nose/Throat/Neck No dental pain 06/2014 Ears/Nose/Throat/Neck No dizziness 2014 Ears/Nose/Throat/Neck No dysphagia 2014 Ears/Nose/Throat/Neck No headache 2014 Ears/Nose/Throat/Neck No hearing loss 06/2014 Ears/Nose/Throat/Neck No nasal allergies 09/28/2014 Ears/Nose/Throat/Neck No sore throat 06/2014 Ears/Nose/Throat/Neck No postnasal drip 09/28/2014 Ears/Nose/Throat/Neck No sinus congestion 09/28/2014 Cardiovascular edema 09/28/2014 Cardiovascular exercise intolerance 09/28 Cardiovascular fatigue 09/28/2014 Cardiovascular hypertension 09/28/2014 Respiratory No chest tightness 2014 Respiratory No cigarette smoking 2014 Respiratory No cough 09/28/2014 Respiratory No dyspnea 09/28/2014 Respiratory No pedal edema 09/28/2014 Respiratory No snoring 09/28/2014 Respiratory No wheezing 09/28/2014 Gastrointestinal No hemorrhoids 2014 Gastrointestinal No abdominal pain 2014 Gastrointestinal No constipation 2014 Gastrointestinal No diarrhea 09/28/2014 Gastrointestinal No gastroesophageal reflux 09/28/2014 Gastrointestinal No melena 09/28/2014 Gastrointestinal No nausea 09/28/2014 Gastrointestinal No vomiting 09/28/2014 Genitourinary/Nephrology dysuria 2014 Genitourinary/Nephrology No nocturia 06/2014 Genitourinary/Nephrology urinary urgency 09/28/2014 Genitourinary/Nephrology urinary frequency 09/28/2014 Genitourinary/Nephrology No urinary incontinence 09/28/2014 Musculoskeletal stiffness 09/28/2014 Musculoskeletal arthralgia(s) 09/28/2014 Musculoskeletal back pain 09/28/2014 Musculoskeletal joint complaint 2014 Musculoskeletal muscle weakness 2014 Musculoskeletal myalgias 09/28/2014 Dermatologic No rash 09/28/2014 Dermatologic sores 09/28/2014 Dermatologic No scar 09/28/2014 Neurologic dyskinesia or tremor 2014 Neurologic gait abnormality 09/28/2014 Psychiatric No anxiety 09/28/2014 Psychiatric No depression 09/28/2014 Endocrine diabetes mellitus type 2 2014 Endocrine flushing 09/28/2014 Constitutional recent illness 07/19/2014 Constitutional No chills 07/19/2014 Constitutional fatigue 07/19/2014 Constitutional No fever 07/19/2014 Constitutional No insomnia 07/19/2014 Constitutional malaise 07/19/2014 Eyes No blindness 07/19/2014 Eyes No vision change 07/19/2014 Ears/Nose/Throat/Neck No dental pain Ears/Nose/Throat/Neck No dizziness 2014 Ears/Nose/Throat/Neck No dysphagia 2014 Ears/Nose/Throat/Neck No headache 2014 Ears/Nose/Throat/Neck No hearing loss Ears/Nose/Throat/Neck No nasal allergies 07/19/2014 Ears/Nose/Throat/Neck No sore throat Ears/Nose/Throat/Neck No postnasal drip 07/19/2014 Ears/Nose/Throat/Neck No sinus congestion 07/19/2014 Cardiovascular edema 07/19/2014 Cardiovascular exercise intolerance 07/19 Cardiovascular fatigue 07/19/2014 Cardiovascular hypertension 07/19/2014 Respiratory No chest tightness 2014 Respiratory No cigarette smoking 2014 Respiratory No cough 07/19/2014 Respiratory No dyspnea 07/19/2014 Respiratory No pedal edema 07/19/2014 Respiratory No snoring 07/19/2014 Respiratory No wheezing 07/19/2014 Gastrointestinal No hemorrhoids 2014 Gastrointestinal No abdominal pain 2014 Gastrointestinal No constipation 2014 Gastrointestinal No diarrhea 07/19/2014 Gastrointestinal No gastroesophageal reflux 07/19/2014 Gastrointestinal No melena 07/19/2014 Gastrointestinal No nausea 07/19/2014 Gastrointestinal No vomiting 07/19/2014 Genitourinary/Nephrology dysuria 2014 Genitourinary/Nephrology No nocturia Genitourinary/Nephrology urinary urgency 07/19/2014 Genitourinary/Nephrology urinary frequency 07/19/2014 Genitourinary/Nephrology No urinary incontinence 07/19/2014 Musculoskeletal stiffness 07/19/2014 Musculoskeletal arthralgia(s) 07/19/2014 Musculoskeletal back pain 07/19/2014 Musculoskeletal joint complaint 2014 Musculoskeletal muscle weakness 2014 Musculoskeletal myalgias 07/19/2014 Dermatologic No rash 07/19/2014 Dermatologic sores 07/19/2014 Dermatologic No scar 07/19/2014 Neurologic dyskinesia or tremor 2014 Neurologic gait abnormality 07/19/2014 Psychiatric No anxiety 07/19/2014 Psychiatric No depression 07/19/2014 Endocrine diabetes mellitus type 2 2014 Endocrine flushing 07/19/2014 Constitutional recent illness 07/12/2014 Constitutional No chills 07/12/2014 Constitutional fatigue 07/12/2014 Constitutional No fever 07/12/2014 Constitutional No insomnia 07/12/2014 Constitutional malaise 07/12/2014 Eyes No blindness 07/12/2014 Eyes No vision change 07/12/2014 Ears/Nose/Throat/Neck No dental pain Ears/Nose/Throat/Neck No dizziness 2014 Ears/Nose/Throat/Neck No dysphagia 2014 Ears/Nose/Throat/Neck No headache 2014 Ears/Nose/Throat/Neck No hearing loss Ears/Nose/Throat/Neck No nasal allergies 07/12/2014 Ears/Nose/Throat/Neck No sore throat Ears/Nose/Throat/Neck No postnasal drip 07/12/2014 Ears/Nose/Throat/Neck No sinus congestion 07/12/2014 Cardiovascular edema 07/12/2014 Cardiovascular exercise intolerance 07/12 Cardiovascular fatigue 07/12/2014 Cardiovascular hypertension 07/12/2014 Respiratory No chest tightness 2014 Respiratory No cigarette smoking 2014 Respiratory No cough 07/12/2014 Respiratory No dyspnea 07/12/2014 Respiratory No pedal edema 07/12/2014 Respiratory No snoring 07/12/2014 Respiratory No wheezing 07/12/2014 Gastrointestinal No hemorrhoids 2014 Gastrointestinal No abdominal pain 2014 Gastrointestinal No constipation 2014 Gastrointestinal No diarrhea 07/12/2014 Gastrointestinal No gastroesophageal reflux 07/12/2014 Gastrointestinal No melena 07/12/2014 Gastrointestinal No nausea 07/12/2014 Gastrointestinal No vomiting 07/12/2014 Genitourinary/Nephrology dysuria 2014 Genitourinary/Nephrology No nocturia Genitourinary/Nephrology urinary urgency 07/12/2014 Genitourinary/Nephrology urinary frequency 07/12/2014 Genitourinary/Nephrology No urinary incontinence 07/12/2014 Musculoskeletal stiffness 07/12/2014 Musculoskeletal arthralgia(s) 07/12/2014 Musculoskeletal back pain 07/12/2014 Musculoskeletal joint complaint 2014 Musculoskeletal muscle weakness 2014 Musculoskeletal myalgias 07/12/2014 Dermatologic No rash 07/12/2014 Dermatologic No scar 07/12/2014 Neurologic dyskinesia or tremor 2014 Neurologic gait abnormality 07/12/2014 Psychiatric No anxiety 07/12/2014 Psychiatric No depression 07/12/2014 Endocrine diabetes mellitus type 2 2014 Endocrine flushing 07/12/2014 Dermatologic sores 07/12/2014 Constitutional recent illness 05/03/2014 Constitutional No chills 05/03/2014 Constitutional fatigue 05/03/2014 Constitutional No fever 05/03/2014 Constitutional No insomnia 05/03/2014 Constitutional malaise 05/03/2014 Eyes No blindness 05/03/2014 Eyes No vision change 05/03/2014 Ears/Nose/Throat/Neck No dental pain 09/2014 Ears/Nose/Throat/Neck No dizziness 2014 Ears/Nose/Throat/Neck No dysphagia 2014 Ears/Nose/Throat/Neck No headache 2014 Ears/Nose/Throat/Neck No hearing loss 09/2014 Ears/Nose/Throat/Neck No nasal allergies 05/03/2014 Ears/Nose/Throat/Neck No sore throat 09/2014 Ears/Nose/Throat/Neck No postnasal drip 05/03/2014 Ears/Nose/Throat/Neck No sinus congestion 05/03/2014 Cardiovascular edema 05/03/2014 Cardiovascular exercise intolerance 05/03 Cardiovascular fatigue 05/03/2014 Cardiovascular hypertension 05/03/2014 Respiratory No chest tightness 2014 Respiratory No cigarette smoking 2014 Respiratory No cough 05/03/2014 Respiratory No dyspnea 05/03/2014 Respiratory No pedal edema 05/03/2014 Respiratory No snoring 05/03/2014 Respiratory No wheezing 05/03/2014 Gastrointestinal No hemorrhoids 2014 Gastrointestinal No abdominal pain 2014 Gastrointestinal No constipation 2014 Gastrointestinal No diarrhea 05/03/2014 Gastrointestinal No gastroesophageal reflux 05/03/2014 Gastrointestinal No melena 05/03/2014 Gastrointestinal No nausea 05/03/2014 Gastrointestinal No vomiting 05/03/2014 Genitourinary/Nephrology dysuria 2014 Genitourinary/Nephrology No nocturia 09/2014 Genitourinary/Nephrology urinary urgency 05/03/2014 Genitourinary/Nephrology urinary frequency 05/03/2014 Genitourinary/Nephrology No urinary incontinence 05/03/2014 Musculoskeletal stiffness 05/03/2014 Musculoskeletal arthralgia(s) 05/03/2014 Musculoskeletal back pain 05/03/2014 Musculoskeletal muscle weakness 2014 Dermatologic No rash 05/03/2014 Dermatologic No scar 05/03/2014 Psychiatric No anxiety 05/03/2014 Psychiatric No depression 05/03/2014 Endocrine diabetes mellitus type 2 2014 Endocrine flushing 05/03/2014 Musculoskeletal joint complaint 2014 Musculoskeletal myalgias 05/03/2014 Neurologic gait abnormality 05/03/2014 Neurologic dyskinesia or tremor 2014 Constitutional recent illness 03/31/2014 Constitutional No chills 03/31/2014 Constitutional fatigue 03/31/2014 Constitutional No fever 03/31/2014 Constitutional No insomnia 03/31/2014 Constitutional malaise 03/31/2014 Eyes No blindness 03/31/2014 Eyes No vision change 03/31/2014 Ears/Nose/Throat/Neck No dental pain 07/2013 Ears/Nose/Throat/Neck No dizziness 2013 Ears/Nose/Throat/Neck No dysphagia 2013 Ears/Nose/Throat/Neck No headache 2013 Ears/Nose/Throat/Neck No hearing loss 07/2013 Ears/Nose/Throat/Neck No nasal allergies 03/31/2014 Ears/Nose/Throat/Neck No sore throat 07/2013 Ears/Nose/Throat/Neck No postnasal drip 03/31/2014 Ears/Nose/Throat/Neck No sinus congestion 03/31/2014 Cardiovascular edema 03/31/2014 Cardiovascular exercise intolerance 03/31 Cardiovascular fatigue 03/31/2014 Cardiovascular hypertension 03/31/2014 Respiratory No chest tightness 2013 Respiratory No cigarette smoking 2013 Respiratory No cough 03/31/2014 Respiratory No dyspnea 03/31/2014 Respiratory No pedal edema 03/31/2014 Respiratory No snoring 03/31/2014 Respiratory No wheezing 03/31/2014 Gastrointestinal No hemorrhoids 2013 Gastrointestinal No abdominal pain 2013 Gastrointestinal No constipation 2013 Gastrointestinal No diarrhea 03/31/2014 Gastrointestinal No gastroesophageal reflux 03/31/2014 Gastrointestinal No melena 03/31/2014 Gastrointestinal No nausea 03/31/2014 Gastrointestinal No vomiting 03/31/2014 Genitourinary/Nephrology dysuria 2013 Genitourinary/Nephrology No nocturia 07/2013 Genitourinary/Nephrology urinary urgency 03/31/2014 Genitourinary/Nephrology urinary frequency 03/31/2014 Genitourinary/Nephrology No urinary incontinence 03/31/2014 Musculoskeletal stiffness 03/31/2014 Musculoskeletal arthralgia(s) 03/31/2014 Musculoskeletal back pain 03/31/2014 Musculoskeletal muscle weakness 2013 Dermatologic No rash 03/31/2014 Dermatologic No scar 03/31/2014 Psychiatric No anxiety 03/31/2014 Psychiatric No depression 03/31/2014 Endocrine diabetes mellitus type 2 2013 Endocrine flushing 03/31/2014 Constitutional recent illness 03/18/2014 Constitutional No chills 03/18/2014 Constitutional fatigue 03/18/2014 Constitutional No fever 03/18/2014 Constitutional No insomnia 03/18/2014 Constitutional malaise 03/18/2014 Eyes No blindness 03/18/2014 Eyes No vision change 03/18/2014 Ears/Nose/Throat/Neck No dental pain Ears/Nose/Throat/Neck No dizziness 2013 Ears/Nose/Throat/Neck No dysphagia 2013 Ears/Nose/Throat/Neck No headache 2013 Ears/Nose/Throat/Neck No hearing loss Ears/Nose/Throat/Neck No nasal allergies 03/18/2014 Ears/Nose/Throat/Neck No sore throat Ears/Nose/Throat/Neck No postnasal drip 03/18/2014 Ears/Nose/Throat/Neck No sinus congestion 03/18/2014 Cardiovascular edema 03/18/2014 Cardiovascular fatigue 03/18/2014 Cardiovascular exercise intolerance 03/18 Cardiovascular hypertension 03/18/2014 Respiratory No chest tightness 2013 Respiratory No cigarette smoking 2013 Respiratory No cough 03/18/2014 Respiratory No dyspnea 03/18/2014 Respiratory No pedal edema 03/18/2014 Respiratory No snoring 03/18/2014 Respiratory No wheezing 03/18/2014 Gastrointestinal No hemorrhoids 2013 Gastrointestinal No abdominal pain 2013 Gastrointestinal No constipation 2013 Gastrointestinal No diarrhea 03/18/2014 Gastrointestinal No gastroesophageal reflux 03/18/2014 Gastrointestinal No melena 03/18/2014 Gastrointestinal No nausea 03/18/2014 Gastrointestinal No vomiting 03/18/2014 Genitourinary/Nephrology dysuria 2013 Genitourinary/Nephrology No nocturia Genitourinary/Nephrology No urinary incontinence 03/18/2014 Genitourinary/Nephrology urinary frequency 03/18/2014 Genitourinary/Nephrology urinary urgency 03/18/2014 Musculoskeletal stiffness 03/18/2014 Musculoskeletal arthralgia(s) 03/18/2014 Musculoskeletal muscle weakness 2013 Musculoskeletal back pain 03/18/2014 Dermatologic No rash 03/18/2014 Dermatologic No scar 03/18/2014 Psychiatric No anxiety 03/18/2014 Psychiatric No depression 03/18/2014 Endocrine diabetes mellitus type 2 2013 Endocrine flushing 03/18/2014 Physical Exam Exam Name System Name Item Name Status Result Effective Dates Notes Full Exam - General 1994 Constitutional general appearance Hygiene/Attention to Grooming: good hygiene 01/09/2017 None Full Exam - General 1994 Constitutional general appearance Assistive Device: walker 01/09/2017 None Full Exam - General 1994 Eyes conjunctiva /eyelids Overall: conjunctiva clear 01/09/2017 None Full Exam - General 1994 Eyes pupils and irises Overall: pupils equal, round, reactive to light and accomodation 01/09/2017 None Full Exam - General 1994 Ears/Nose/Throat lips/teeth/gingiva Overall: benign lips 01/09/2017 None Full Exam - General 1994 Respiratory auscultation Overall: breath sounds clear bilaterally 01/09/2017 None Full Exam - General 1994 Respiratory respiratory effort/rhythm Overall: no retractions 01/09/2017 None Full Exam - General 1994 Respiratory respiratory effort/rhythm Overall: normal rate 01/09/2017 None Full Exam - General 1994 Cardiovascular extremities Overall: no clubbing 01/09/2017 None Full Exam - General 1994 Cardiovascular extremities Edema present: pitting 01/09/2017 to mid-calf bilaterally Full Exam - General 1994 Cardiovascular auscultation of heart Overall: regular rate 01/09/2017 None Full Exam - General 1994 Cardiovascular auscultation of heart Systolic murmur grade: II/ 01/09/2017 None Full Exam - General 1994 Musculoskeletal spine, ribs and pelvis Posture: kyphosis 01/09/2017 None Full Exam - General 1994 Musculoskeletal gait and station Station: kyphosis 01/09/2017 None Full Exam - General 1994 Musculoskeletal head and neck Overall: head atraumatic 01/09/2017 None Full Exam - General 1994 Neurologic cranial nerves Overall: crainial nerves 2 - 12 grossly intact 01/09/2017 None Full Exam - General 1994 Psychiatric orientation/consciousness Overall: oriented to person, place and time 01/09/2017 None Full Exam - General 1994 Psychiatric mood and affect Overall: normal mood and affect 01/09/2017 None Full Exam - General 1994 Constitutional general appearance Overall: well developed 01/09/2017 None Full Exam - General 1994 Constitutional general appearance Overall: in no acute distress 01/09/2017 None Full Exam - General 1994 Constitutional general appearance Overall: well nourished 01/09/2017 None Full Exam - General 1994 Eyes conjunctiva /eyelids Overall: eyelids normal 01/09/2017 None Full Exam - General 1994 Ears/Nose/Throat oral cavity/pharynx/larynx Overall: oral mucosa clear 01/09/2017 None Full Exam - General 1994 Cardiovascular extremities Edema present: severity 1+ - 4 +: trace to 1+ 01/09/2017 None Full Exam - General 1994 Psychiatric appearance Overall: well-groomed, good eye contact 01/09/2017 None Full Exam - General 1994 Constitutional general appearance Development: well developed 09/27/2016 None Full Exam - General 1994 Constitutional general appearance Development: appears stated age 0609/27/2016 None Full Exam - General 1994 Constitutional general appearance Hygiene/Attention to Grooming: good hygiene 09/27/2016 None Full Exam - General 1994 Constitutional general appearance Assistive Device: walker 09/27/2016 None Full Exam - General 1994 Eyes conjunctiva /eyelids Overall: conjunctiva clear 09/27/2016 None Full Exam - General 1994 Eyes conjunctiva /eyelids Overall: cornea clear 09/27/2016 None Full Exam - General 1994 Eyes conjunctiva /eyelids Overall: eyelids normal 09/27/2016 None Full Exam - General 1994 Eyes pupils and irises Overall: pupils equal, round, reactive to light and accomodation 09/27/2016 None Full Exam - General 1994 Ears/Nose/Throat lips/teeth/gingiva Overall: benign lips 09/27/2016 None Full Exam - General 1995 Ears/Nose/Throat lips/teeth/gingiva Overall: normal dentition 09/27/2016 None Full Exam - General 1994 Respiratory auscultation Overall: breath sounds clear bilaterally 09/27/2016 None Full Exam - General 1994 Respiratory respiratory effort/rhythm Overall: no retractions 09/27/2016 None Full Exam - General 1994 Respiratory respiratory effort/rhythm Overall: normal rate 09/27/2016 None Full Exam - General 1994 Cardiovascular extremities Overall: no clubbing 09/27/2016 None Full Exam - General 1994 Cardiovascular extremities Edema present: pitting 09/27/2016 to mid-calf bilaterally Full Exam - General 1994 Cardiovascular extremities Edema present: severity 1+ - 4 +: 1-2+ 09/27/2016 None Full Exam - General 1994 Cardiovascular auscultation of heart Overall: regular rate 09/27/2016 None Full Exam - General 1994 Cardiovascular auscultation of heart Systolic murmur grade: II/ 09/27/2016 None Full Exam - General 1994 Abdomen abdominal exam Overall: no tenderness 09/27/2016 None Full Exam - General 1994 Abdomen abdominal exam Overall: normal bowel sounds 09/27/2016 None Full Exam - General 1994 Lymphatic neck nodes Overall: anterior cervical chain benign 09/27/2016 None Full Exam - General 1994 Lymphatic neck nodes Overall: posterior cervical chain benign 09/27/2016 None Full Exam - General 1994 Musculoskeletal spine, ribs and pelvis Posture: kyphosis 09/27/2016 None Full Exam - General 1994 Musculoskeletal gait and station Station: kyphosis 09/27/2016 None Full Exam - General 1994 Musculoskeletal head and neck Overall: head atraumatic 09/27/2016 None Full Exam - General 1994 Musculoskeletal head and neck Overall: cervical spine benign 09/27/2016 slight buffalo hump Full Exam - General 1994 Neurologic deep tendon reflexes Overall: deep tendon reflexes intact 09/27/2016 None Full Exam - General 1994 Neurologic cranial nerves Overall: crainial nerves 2 - 12 grossly intact 09/27/2016 None Full Exam - General 1994 Psychiatric orientation/consciousness Overall: oriented to person, place and time 09/27/2016 None Full Exam - General 1994 Psychiatric mood and affect Overall: normal mood and affect 09/27/2016 None Full Exam - General 1994 Constitutional general appearance Overall: well developed 07/29/2016 None Full Exam - General 1994 Constitutional general appearance Overall: in no acute distress 07/29/2016 None Full Exam - General 1994 Constitutional general appearance Overall: well nourished 07/29/2016 None Full Exam - General 1994 Eyes conjunctiva /eyelids Overall: conjunctiva clear 07/29/2016 None Full Exam - General 1994 Eyes conjunctiva /eyelids Overall: eyelids normal 07/29/2016 None Full Exam - General 1994 Ears/Nose/Throat lips/teeth/gingiva Overall: benign lips 07/29/2016 None Full Exam - General 1994 Ears/Nose/Throat oral cavity/pharynx/larynx Overall: oral mucosa clear 07/29/2016 None Full Exam - General 1994 Respiratory auscultation Overall: breath sounds clear bilaterally 07/29/2016 None Full Exam - General 1994 Respiratory respiratory effort/rhythm Overall: no retractions 07/29/2016 None Full Exam - General 1994 Respiratory respiratory effort/rhythm Overall: normal rate 07/29/2016 None Full Exam - General 1994 Constitutional general appearance Hygiene/Attention to Grooming: good hygiene 07/29/2016 None Full Exam - General 1994 Constitutional general appearance Assistive Device: walker 07/29/2016 None Full Exam - General 1994 Cardiovascular extremities Overall: no clubbing 07/29/2016 None Full Exam - General 1994 Cardiovascular extremities Edema present: pitting 07/29/2016 None Full Exam - General 1994 Cardiovascular extremities Edema present: severity 1+ - 4 +: 2+ 07/29/2016 None Full Exam - General 1994 Cardiovascular auscultation of heart Overall: regular rate 07/29/2016 None Full Exam - General 1994 Cardiovascular auscultation of heart Systolic murmur grade: II/ 07/29/2016 None Full Exam - General 1994 Musculoskeletal spine, ribs and pelvis Posture: kyphosis 07/29/2016 None Full Exam - General 1994 Musculoskeletal gait and station Station: kyphosis 07/29/2016 None Full Exam - General 1994 Musculoskeletal head and neck Overall: head atraumatic 07/29/2016 None Full Exam - General 1994 Neurologic cranial nerves Overall: crainial nerves 2 - 12 grossly intact 07/29/2016 None Full Exam - General 1994 Psychiatric orientation/consciousness Overall: oriented to person, place and time 07/29/2016 None Full Exam - General 1994 Psychiatric mood and affect Overall: normal mood and affect 07/29/2016 None Full Exam - General 1994 Cardiovascular extremities Edema present: bilateral 07/29/2016 None Full Exam - General 1994 Cardiovascular extremities Edema present: to knees 07/29/2016 None Full Exam - General 1994 Integument inspection of skin Location: right foot 07/29/2016 great toe Full Exam - General 1994 Integument inspection of skin Dermatitis: erythema 07/29/2016 None Full Exam - General 1994 Integument palpation Foot: tender 07/29/2016 None Full Exam - General 1994 Psychiatric appearance Overall: well-groomed, good eye contact 07/29/2016 None Full Exam - General 1994 Constitutional general appearance Development: well developed 06/28/2016 None Full Exam - General 1994 Constitutional general appearance Development: appears stated age 0306/28/2016 None Full Exam - General 1994 Constitutional general appearance Hygiene/Attention to Grooming: good hygiene 06/28/2016 None Full Exam - General 1994 Constitutional general appearance Assistive Device: walker 06/28/2016 None Full Exam - General 1994 Eyes conjunctiva /eyelids Overall: conjunctiva clear 06/28/2016 None Full Exam - General 1994 Eyes conjunctiva /eyelids Overall: cornea clear 06/28/2016 None Full Exam - General 1994 Eyes conjunctiva /eyelids Overall: eyelids normal 06/28/2016 None Full Exam - General 1994 Eyes pupils and irises Overall: pupils equal, round, reactive to light and accomodation 06/28/2016 None Full Exam - General 1994 Ears/Nose/Throat lips/teeth/gingiva Overall: benign lips 06/28/2016 None Full Exam - General 1994 Ears/Nose/Throat lips/teeth/gingiva Overall: normal dentition 06/28/2016 None Full Exam - General 1994 Respiratory auscultation Overall: breath sounds clear bilaterally 06/28/2016 None Full Exam - General 1994 Respiratory respiratory effort/rhythm Overall: no retractions 06/28/2016 None Full Exam - General 1994 Respiratory respiratory effort/rhythm Overall: normal rate 06/28/2016 None Full Exam - General 1994 Cardiovascular extremities Overall: no clubbing 06/28/2016 None Full Exam - General 1994 Cardiovascular extremities Edema present: pitting 06/28/2016 to thighs bilaterally Full Exam - General 1994 Cardiovascular extremities Edema present: severity 1+ - 4 +: 2+ 06/28/2016 None Full Exam - General 1994 Cardiovascular auscultation of heart Overall: regular rate 06/28/2016 None Full Exam - General 1994 Cardiovascular auscultation of heart Systolic murmur grade: II/ 06/28/2016 None Full Exam - General 1994 Abdomen abdominal exam Overall: no tenderness 06/28/2016 None Full Exam - General 1994 Abdomen abdominal exam Overall: normal bowel sounds 06/28/2016 None Full Exam - General 1994 Lymphatic neck nodes Overall: anterior cervical chain benign 06/28/2016 None Full Exam - General 1994 Lymphatic neck nodes Overall: posterior cervical chain benign 06/28/2016 None Full Exam - General 1994 Musculoskeletal spine, ribs and pelvis Posture: kyphosis 06/28/2016 None Full Exam - General 1994 Musculoskeletal gait and station Station: kyphosis 06/28/2016 None Full Exam - General 1994 Musculoskeletal head and neck Overall: head atraumatic 06/28/2016 None Full Exam - General 1994 Musculoskeletal head and neck Overall: cervical spine benign 06/28/2016 slight buffalo hump Full Exam - General 1994 Neurologic deep tendon reflexes Overall: deep tendon reflexes intact 06/28/2016 None Full Exam - General 1994 Neurologic cranial nerves Overall: crainial nerves 2 - 12 grossly intact 06/28/2016 None Full Exam - General 1994 Psychiatric orientation/consciousness Overall: oriented to person, place and time 06/28/2016 None Full Exam - General 1994 Psychiatric mood and affect Overall: normal mood and affect 06/28/2016 None Full Exam - General 1994 Constitutional general appearance Development: well developed 03/26/2016 None Full Exam - General 1994 Constitutional general appearance Development: appears stated age 1103/26/2016 None Full Exam - General 1994 Constitutional general appearance Hygiene/Attention to Grooming: good hygiene 03/26/2016 None Full Exam - General 1994 Constitutional general appearance Assistive Device: walker 03/26/2016 None Full Exam - General 1994 Eyes conjunctiva /eyelids Overall: conjunctiva clear 03/26/2016 None Full Exam - General 1994 Eyes conjunctiva /eyelids Overall: cornea clear 03/26/2016 None Full Exam - General 1994 Eyes conjunctiva /eyelids Overall: eyelids normal 03/26/2016 None Full Exam - General 1994 Eyes pupils and irises Overall: pupils equal, round, reactive to light and accomodation 03/26/2016 None Full Exam - General 1994 Ears/Nose/Throat lips/teeth/gingiva Overall: benign lips 03/26/2016 None Full Exam - General 1994 Ears/Nose/Throat lips/teeth/gingiva Overall: normal dentition 03/26/2016 None Full Exam - General 1994 Respiratory auscultation Overall: breath sounds clear bilaterally 03/26/2016 None Full Exam - General 1994 Respiratory respiratory effort/rhythm Overall: no retractions 03/26/2016 None Full Exam - General 1994 Respiratory respiratory effort/rhythm Overall: normal rate 03/26/2016 None Full Exam - General 1994 Cardiovascular extremities Overall: no clubbing 03/26/2016 None Full Exam - General 1994 Cardiovascular extremities Edema present: pitting 03/26/2016 to thighs bilaterally Full Exam - General 1994 Cardiovascular extremities Edema present: severity 1+ - 4 +: 2+ 03/26/2016 None Full Exam - General 1994 Cardiovascular auscultation of heart Overall: regular rate 03/26/2016 None Full Exam - General 1994 Cardiovascular auscultation of heart Systolic murmur grade: II/ 03/26/2016 None Full Exam - General 1994 Abdomen abdominal exam Overall: no tenderness 03/26/2016 None Full Exam - General 1994 Abdomen abdominal exam Overall: normal bowel sounds 03/26/2016 None Full Exam - General 1994 Lymphatic neck nodes Overall: anterior cervical chain benign 03/26/2016 None Full Exam - General 1994 Lymphatic neck nodes Overall: posterior cervical chain benign 03/26/2016 None Full Exam - General 1994 Musculoskeletal spine, ribs and pelvis Posture: kyphosis 03/26/2016 None Full Exam - General 1994 Musculoskeletal gait and station Station: kyphosis 03/26/2016 None Full Exam - General 1994 Musculoskeletal head and neck Overall: head atraumatic 03/26/2016 None Full Exam - General 1994 Musculoskeletal head and neck Overall: cervical spine benign 03/26/2016 slight buffalo hump Full Exam - General 1994 Neurologic deep tendon reflexes Overall: deep tendon reflexes intact 03/26/2016 None Full Exam - General 1994 Neurologic cranial nerves Overall: crainial nerves 2 - 12 grossly intact 03/26/2016 None Full Exam - General 1994 Psychiatric orientation/consciousness Overall: oriented to person, place and time 03/26/2016 None Full Exam - General 1994 Psychiatric mood and affect Overall: normal mood and affect 03/26/2016 None Full Exam - General 1994 Constitutional general appearance Overall: well developed 03/07/2016 None Full Exam - General 1994 Constitutional general appearance Overall: in no acute distress 03/07/2016 None Full Exam - General 1994 Constitutional general appearance Overall: well nourished 03/07/2016 None Full Exam - General 1994 Eyes conjunctiva /eyelids Overall: conjunctiva clear 03/07/2016 None Full Exam - General 1994 Ears/Nose/Throat lips/teeth/gingiva Overall: benign lips 03/07/2016 None Full Exam - General 1994 Ears/Nose/Throat oral cavity/pharynx/larynx Overall: oral mucosa clear 03/07/2016 None Full Exam - General 1994 Respiratory auscultation Overall: breath sounds clear bilaterally 03/07/2016 None Full Exam - General 1994 Respiratory respiratory effort/rhythm Overall: no retractions 03/07/2016 None Full Exam - General 1994 Respiratory respiratory effort/rhythm Overall: normal rate 03/07/2016 None Full Exam - General 1994 Eyes conjunctiva /eyelids Overall: eyelids normal 03/07/2016 None Full Exam - General 1994 Cardiovascular auscultation of heart Overall: regular rate 03/07/2016 None Full Exam - General 1994 Cardiovascular auscultation of heart Systolic murmur grade: II/ 03/07/2016 None Full Exam - General 1994 Musculoskeletal spine, ribs and pelvis Posture: kyphosis 03/07/2016 None Full Exam - General 1994 Musculoskeletal gait and station Station: kyphosis 03/07/2016 None Full Exam - General 1994 Musculoskeletal head and neck Overall: head atraumatic 03/07/2016 None Full Exam - General 1994 Neurologic cranial nerves Overall: crainial nerves 2 - 12 grossly intact 03/07/2016 None Full Exam - General 1994 Psychiatric orientation/consciousness Overall: oriented to person, place and time 03/07/2016 None Full Exam - General 1994 Psychiatric mood and affect Overall: normal mood and affect 03/07/2016 None Full Exam - General 1994 Psychiatric appearance Overall: well-groomed, good eye contact 03/07/2016 None Full Exam - General 1994 Constitutional general appearance Overall: well developed 01/24/2016 None Full Exam - General 1994 Constitutional general appearance Overall: in no acute distress 01/24/2016 None Full Exam - General 1994 Constitutional general appearance Overall: well nourished 01/24/2016 None Full Exam - General 1994 Constitutional general appearance Assistive Device: walker 01/24/2016 None Full Exam - General 1994 Eyes conjunctiva /eyelids Overall: conjunctiva clear 01/24/2016 None Full Exam - General 1994 Eyes conjunctiva /eyelids Overall: cornea clear 01/24/2016 None Full Exam - General 1994 Eyes conjunctiva /eyelids Overall: eyelids normal 01/24/2016 None Full Exam - General 1994 Ears/Nose/Throat lips/teeth/gingiva Overall: benign lips 01/24/2016 None Full Exam - General 1994 Ears/Nose/Throat lips/teeth/gingiva Overall: normal dentition 01/24/2016 None Full Exam - General 1994 Ears/Nose/Throat oral cavity/pharynx/larynx Overall: oral mucosa clear 01/24/2016 None Full Exam - General 1994 Respiratory auscultation Overall: breath sounds clear bilaterally 01/24/2016 None Full Exam - General 1994 Respiratory respiratory effort/rhythm Overall: no retractions 01/24/2016 None Full Exam - General 1994 Respiratory respiratory effort/rhythm Overall: normal rate 01/24/2016 None Full Exam - General 1994 Cardiovascular extremities Overall: no clubbing 01/24/2016 None Full Exam - General 1994 Cardiovascular extremities Edema present: pitting 01/24/2016 to thighs bilaterally Full Exam - General 1994 Cardiovascular auscultation of heart Overall: regular rate 01/24/2016 None Full Exam - General 1994 Cardiovascular auscultation of heart Systolic murmur grade: II/ 01/24/2016 None Full Exam - General 1994 Musculoskeletal spine, ribs and pelvis Posture: kyphosis 01/24/2016 None Full Exam - General 1994 Musculoskeletal gait and station Station: kyphosis 01/24/2016 None Full Exam - General 1994 Musculoskeletal head and neck Overall: head atraumatic 01/24/2016 None Full Exam - General 1994 Neurologic cranial nerves Overall: crainial nerves 2 - 12 grossly intact 01/24/2016 None Full Exam - General 1994 Psychiatric orientation/consciousness Overall: oriented to person, place and time 01/24/2016 None Full Exam - General 1994 Psychiatric mood and affect Overall: normal mood and affect 01/24/2016 None Full Exam - General 1994 Psychiatric appearance Overall: well-groomed, good eye contact 01/24/2016 None Full Exam - General 1994 Cardiovascular extremities Edema present: severity 1+ - 4 +: 1-2+ 01/24/2016 None Full Exam - General 1994 Constitutional general appearance Assistive Device: walker 01/16/2016 None Full Exam - General 1994 Eyes conjunctiva /eyelids Overall: conjunctiva clear 01/16/2016 None Full Exam - General 1994 Eyes conjunctiva /eyelids Overall: cornea clear 01/16/2016 None Full Exam - General 1994 Eyes conjunctiva /eyelids Overall: eyelids normal 01/16/2016 None Full Exam - General 1994 Ears/Nose/Throat lips/teeth/gingiva Overall: benign lips 01/16/2016 None Full Exam - General 1994 Ears/Nose/Throat lips/teeth/gingiva Overall: normal dentition 01/16/2016 None Full Exam - General 1994 Respiratory auscultation Overall: breath sounds clear bilaterally 01/16/2016 None Full Exam - General 1994 Respiratory respiratory effort/rhythm Overall: no retractions 01/16/2016 None Full Exam - General 1994 Respiratory respiratory effort/rhythm Overall: normal rate 01/16/2016 None Full Exam - General 1994 Cardiovascular extremities Overall: no clubbing 01/16/2016 None Full Exam - General 1994 Cardiovascular extremities Edema present: pitting 01/16/2016 to thighs bilaterally Full Exam - General 1994 Cardiovascular auscultation of heart Overall: regular rate 01/16/2016 None Full Exam - General 1994 Cardiovascular auscultation of heart Systolic murmur grade: II/ 01/16/2016 None Full Exam - General 1994 Musculoskeletal spine, ribs and pelvis Posture: kyphosis 01/16/2016 None Full Exam - General 1994 Musculoskeletal gait and station Station: kyphosis 01/16/2016 None Full Exam - General 1994 Musculoskeletal head and neck Overall: head atraumatic 01/16/2016 None Full Exam - General 1994 Neurologic cranial nerves Overall: crainial nerves 2 - 12 grossly intact 01/16/2016 None Full Exam - General 1994 Psychiatric orientation/consciousness Overall: oriented to person, place and time 01/16/2016 None Full Exam - General 1994 Psychiatric mood and affect Overall: normal mood and affect 01/16/2016 None Full Exam - General 1994 Constitutional general appearance Overall: well developed 01/16/2016 None Full Exam - General 1994 Constitutional general appearance Overall: in no acute distress 01/16/2016 None Full Exam - General 1994 Constitutional general appearance Overall: well nourished 01/16/2016 None Full Exam - General 1994 Ears/Nose/Throat oral cavity/pharynx/larynx Overall: oral mucosa clear 01/16/2016 None Full Exam - General 1994 Cardiovascular extremities Edema present: severity 1+ - 4 +: 3-4+ 01/16/2016 None Full Exam - General 1994 Integument inspection of skin Location: right leg 01/16/2016 popliteal region - skin irritated from moisture and edema Full Exam - General 1994 Integument inspection of skin Location: left leg 01/16/2016 popliteal region - skin irritated from moisture and edema Full Exam - General 1994 Psychiatric appearance Overall: well-groomed, good eye contact 01/16/2016 None Full Exam - General 1994 Constitutional general appearance Development: well developed 12/26/2015 None Full Exam - General 1994 Constitutional general appearance Development: appears stated age 0812/26/2015 None Full Exam - General 1994 Constitutional general appearance Hygiene/Attention to Grooming: good hygiene 12/26/2015 None Full Exam - General 1994 Constitutional general appearance Assistive Device: walker 12/26/2015 None Full Exam - General 1994 Eyes conjunctiva /eyelids Overall: conjunctiva clear 12/26/2015 None Full Exam - General 1994 Eyes conjunctiva /eyelids Overall: cornea clear 12/26/2015 None Full Exam - General 1994 Eyes conjunctiva /eyelids Overall: eyelids normal 12/26/2015 None Full Exam - General 1994 Eyes pupils and irises Overall: pupils equal, round, reactive to light and accomodation 12/26/2015 None Full Exam - General 1994 Ears/Nose/Throat lips/teeth/gingiva Overall: benign lips 12/26/2015 None Full Exam - General 1994 Ears/Nose/Throat lips/teeth/gingiva Overall: normal dentition 12/26/2015 None Full Exam - General 1994 Respiratory auscultation Overall: breath sounds clear bilaterally 12/26/2015 None Full Exam - General 1994 Respiratory respiratory effort/rhythm Overall: no retractions 12/26/2015 None Full Exam - General 1994 Respiratory respiratory effort/rhythm Overall: normal rate 12/26/2015 None Full Exam - General 1994 Cardiovascular extremities Overall: no clubbing 12/26/2015 None Full Exam - General 1994 Cardiovascular extremities Edema present: pitting 12/26/2015 to thighs bilaterally Full Exam - General 1994 Cardiovascular extremities Edema present: severity 1+ - 4 +: 2+ 12/26/2015 None Full Exam - General 1994 Cardiovascular auscultation of heart Overall: regular rate 12/26/2015 None Full Exam - General 1994 Cardiovascular auscultation of heart Systolic murmur grade: II/ 12/26/2015 None Full Exam - General 1994 Abdomen abdominal exam Overall: no tenderness 12/26/2015 None Full Exam - General 1994 Abdomen abdominal exam Overall: normal bowel sounds 12/26/2015 None Full Exam - General 1994 Lymphatic neck nodes Overall: anterior cervical chain benign 12/26/2015 None Full Exam - General 1994 Lymphatic neck nodes Overall: posterior cervical chain benign 12/26/2015 None Full Exam - General 1994 Musculoskeletal spine, ribs and pelvis Posture: kyphosis 12/26/2015 None Full Exam - General 1994 Musculoskeletal gait and station Station: kyphosis 12/26/2015 None Full Exam - General 1994 Musculoskeletal head and neck Overall: head atraumatic 12/26/2015 None Full Exam - General 1994 Musculoskeletal head and neck Overall: cervical spine benign 12/26/2015 slight buffalo hump Full Exam - General 1994 Neurologic deep tendon reflexes Overall: deep tendon reflexes intact 12/26/2015 None Full Exam - General 1994 Neurologic cranial nerves Overall: crainial nerves 2 - 12 grossly intact 12/26/2015 None Full Exam - General 1994 Psychiatric orientation/consciousness Overall: oriented to person, place and time 12/26/2015 None Full Exam - General 1994 Psychiatric mood and affect Overall: normal mood and affect 12/26/2015 None Full Exam - General 1994 Constitutional general appearance Development: well developed 10/12/2015 None Full Exam - General 1994 Constitutional general appearance Development: appears stated age 0610/12/2015 None Full Exam - General 1994 Constitutional general appearance Hygiene/Attention to Grooming: good hygiene 10/12/2015 None Full Exam - General 1994 Constitutional general appearance Assistive Device: walker 10/12/2015 None Full Exam - General 1994 Eyes conjunctiva /eyelids Overall: conjunctiva clear 10/12/2015 None Full Exam - General 1994 Eyes conjunctiva /eyelids Overall: cornea clear 10/12/2015 None Full Exam - General 1994 Eyes conjunctiva /eyelids Overall: eyelids normal 10/12/2015 None Full Exam - General 1994 Eyes pupils and irises Overall: pupils equal, round, reactive to light and accomodation 10/12/2015 None Full Exam - General 1994 Ears/Nose/Throat lips/teeth/gingiva Overall: benign lips 10/12/2015 None Full Exam - General 1994 Ears/Nose/Throat lips/teeth/gingiva Overall: normal dentition 10/12/2015 None Full Exam - General 1994 Respiratory auscultation Overall: breath sounds clear bilaterally 10/12/2015 None Full Exam - General 1994 Respiratory respiratory effort/rhythm Overall: no retractions 10/12/2015 None Full Exam - General 1994 Respiratory respiratory effort/rhythm Overall: normal rate 10/12/2015 None Full Exam - General 1994 Cardiovascular extremities Overall: no clubbing 10/12/2015 None Full Exam - General 1994 Cardiovascular extremities Edema present: pitting 10/12/2015 to thighs bilaterally Full Exam - General 1994 Cardiovascular extremities Edema present: severity 1+ - 4 +: 2+ 10/12/2015 None Full Exam - General 1994 Cardiovascular auscultation of heart Overall: regular rate 10/12/2015 None Full Exam - General 1994 Cardiovascular auscultation of heart Systolic murmur grade: II/ 10/12/2015 None Full Exam - General 1994 Abdomen abdominal exam Overall: no tenderness 10/12/2015 None Full Exam - General 1994 Abdomen abdominal exam Overall: normal bowel sounds 10/12/2015 None Full Exam - General 1994 Lymphatic neck nodes Overall: anterior cervical chain benign 10/12/2015 None Full Exam - General 1994 Lymphatic neck nodes Overall: posterior cervical chain benign 10/12/2015 None Full Exam - General 1994 Musculoskeletal spine, ribs and pelvis Posture: kyphosis 10/12/2015 None Full Exam - General 1994 Musculoskeletal gait and station Station: kyphosis 10/12/2015 None Full Exam - General 1994 Musculoskeletal head and neck Overall: head atraumatic 10/12/2015 None Full Exam - General 1994 Musculoskeletal head and neck Overall: cervical spine benign 10/12/2015 slight buffalo hump Full Exam - General 1994 Neurologic deep tendon reflexes Overall: deep tendon reflexes intact 10/12/2015 None Full Exam - General 1994 Neurologic cranial nerves Overall: crainial nerves 2 - 12 grossly intact 10/12/2015 None Full Exam - General 1994 Psychiatric orientation/consciousness Overall: oriented to person, place and time 10/12/2015 None Full Exam - General 1994 Psychiatric mood and affect Overall: normal mood and affect 10/12/2015 None Full Exam - General 1994 Constitutional general appearance Development: well developed 09/08/2015 None Full Exam - General 1994 Constitutional general appearance Development: appears stated age 0509/08/2015 None Full Exam - General 1994 Constitutional general appearance Hygiene/Attention to Grooming: good hygiene 09/08/2015 None Full Exam - General 1994 Constitutional general appearance Assistive Device: walker 09/08/2015 None Full Exam - General 1994 Eyes conjunctiva /eyelids Overall: conjunctiva clear 09/08/2015 None Full Exam - General 1994 Eyes conjunctiva /eyelids Overall: cornea clear 09/08/2015 None Full Exam - General 1994 Eyes conjunctiva /eyelids Overall: eyelids normal 09/08/2015 None Full Exam - General 1994 Eyes pupils and irises Overall: pupils equal, round, reactive to light and accomodation 09/08/2015 None Full Exam - General 1994 Ears/Nose/Throat lips/teeth/gingiva Overall: benign lips 09/08/2015 None Full Exam - General 1994 Ears/Nose/Throat lips/teeth/gingiva Overall: normal dentition 09/08/2015 None Full Exam - General 1994 Respiratory auscultation Overall: breath sounds clear bilaterally 09/08/2015 None Full Exam - General 1994 Respiratory respiratory effort/rhythm Overall: no retractions 09/08/2015 None Full Exam - General 1994 Respiratory respiratory effort/rhythm Overall: normal rate 09/08/2015 None Full Exam - General 1994 Cardiovascular extremities Overall: no clubbing 09/08/2015 None Full Exam - General 1994 Cardiovascular extremities Edema present: pitting 09/08/2015 to thighs bilaterally Full Exam - General 1994 Cardiovascular auscultation of heart Overall: regular rate 09/08/2015 None Full Exam - General 1994 Cardiovascular auscultation of heart Systolic murmur grade: II/ 09/08/2015 None Full Exam - General 1994 Abdomen abdominal exam Overall: no tenderness 09/08/2015 None Full Exam - General 1994 Abdomen abdominal exam Overall: normal bowel sounds 09/08/2015 None Full Exam - General 1994 Lymphatic neck nodes Overall: anterior cervical chain benign 09/08/2015 None Full Exam - General 1994 Lymphatic neck nodes Overall: posterior cervical chain benign 09/08/2015 None Full Exam - General 1994 Musculoskeletal spine, ribs and pelvis Posture: kyphosis 09/08/2015 None Full Exam - General 1994 Musculoskeletal gait and station Station: kyphosis 09/08/2015 None Full Exam - General 1994 Musculoskeletal head and neck Overall: head atraumatic 09/08/2015 None Full Exam - General 1994 Musculoskeletal head and neck Overall: cervical spine benign 09/08/2015 slight buffalo hump Full Exam - General 1994 Neurologic deep tendon reflexes Overall: deep tendon reflexes intact 09/08/2015 None Full Exam - General 1994 Neurologic cranial nerves Overall: crainial nerves 2 - 12 grossly intact 09/08/2015 None Full Exam - General 1994 Psychiatric orientation/consciousness Overall: oriented to person, place and time 09/08/2015 None Full Exam - General 1994 Psychiatric mood and affect Overall: normal mood and affect 09/08/2015 None Full Exam - General 1994 Cardiovascular extremities Edema present: severity 1+ - 4 +: 2+ 09/08/2015 None Full Exam - General 1994 Constitutional general appearance Development: well developed 08/21/2015 None Full Exam - General 1994 Constitutional general appearance Development: appears stated age 0408/21/2015 None Full Exam - General 1994 Constitutional general appearance Hygiene/Attention to Grooming: good hygiene 08/21/2015 None Full Exam - General 1994 Eyes conjunctiva /eyelids Overall: conjunctiva clear 08/21/2015 None Full Exam - General 1994 Eyes conjunctiva /eyelids Overall: cornea clear 08/21/2015 None Full Exam - General 1994 Eyes conjunctiva /eyelids Overall: eyelids normal 08/21/2015 None Full Exam - General 1994 Eyes pupils and irises Overall: pupils equal, round, reactive to light and accomodation 08/21/2015 None Full Exam - General 1994 Ears/Nose/Throat lips/teeth/gingiva Overall: benign lips 08/21/2015 None Full Exam - General 1994 Ears/Nose/Throat lips/teeth/gingiva Overall: normal dentition 08/21/2015 None Full Exam - General 1994 Respiratory auscultation Overall: breath sounds clear bilaterally 08/21/2015 None Full Exam - General 1994 Respiratory respiratory effort/rhythm Overall: no retractions 08/21/2015 None Full Exam - General 1994 Respiratory respiratory effort/rhythm Overall: normal rate 08/21/2015 None Full Exam - General 1994 Cardiovascular extremities Overall: no clubbing 08/21/2015 None Full Exam - General 1994 Cardiovascular extremities Edema present: pitting 08/21/2015 to thighs bilaterally Full Exam - General 1994 Cardiovascular auscultation of heart Overall: regular rate 08/21/2015 None Full Exam - General 1994 Cardiovascular auscultation of heart Systolic murmur grade: II/ 08/21/2015 None Full Exam - General 1994 Abdomen abdominal exam Overall: no tenderness 08/21/2015 None Full Exam - General 1994 Abdomen abdominal exam Overall: normal bowel sounds 08/21/2015 None Full Exam - General 1994 Lymphatic neck nodes Overall: anterior cervical chain benign 08/21/2015 None Full Exam - General 1994 Lymphatic neck nodes Overall: posterior cervical chain benign 08/21/2015 None Full Exam - General 1994 Musculoskeletal spine, ribs and pelvis Posture: kyphosis 08/21/2015 None Full Exam - General 1994 Musculoskeletal gait and station Station: kyphosis 08/21/2015 None Full Exam - General 1994 Musculoskeletal head and neck Overall: head atraumatic 08/21/2015 None Full Exam - General 1994 Musculoskeletal head and neck Overall: cervical spine benign 08/21/2015 slight buffalo hump Full Exam - General 1994 Neurologic deep tendon reflexes Overall: deep tendon reflexes intact 08/21/2015 None Full Exam - General 1994 Neurologic cranial nerves Overall: crainial nerves 2 - 12 grossly intact 08/21/2015 None Full Exam - General 1994 Psychiatric orientation/consciousness Overall: oriented to person, place and time 08/21/2015 None Full Exam - General 1994 Psychiatric mood and affect Overall: normal mood and affect 08/21/2015 None Full Exam - General 1994 Constitutional general appearance Assistive Device: walker 08/21/2015 None Full Exam - General 1994 Constitutional general appearance Development: well developed 02/16/2015 None Full Exam - General 1994 Constitutional general appearance Development: appears stated age 1002/16/2015 None Full Exam - General 1994 Constitutional general appearance Hygiene/Attention to Grooming: good hygiene 02/16/2015 None Full Exam - General 1994 Constitutional general appearance Assistive Device: wheelchair 02/16/2015 None Full Exam - General 1994 Eyes conjunctiva /eyelids Overall: conjunctiva clear 02/16/2015 None Full Exam - General 1994 Eyes conjunctiva /eyelids Overall: cornea clear 02/16/2015 None Full Exam - General 1994 Eyes conjunctiva /eyelids Overall: eyelids normal 02/16/2015 None Full Exam - General 1994 Eyes pupils and irises Overall: pupils equal, round, reactive to light and accomodation 02/16/2015 None Full Exam - General 1994 Ears/Nose/Throat lips/teeth/gingiva Overall: benign lips 02/16/2015 None Full Exam - General 1994 Ears/Nose/Throat lips/teeth/gingiva Overall: normal dentition 02/16/2015 None Full Exam - General 1994 Respiratory auscultation Overall: breath sounds clear bilaterally 02/16/2015 None Full Exam - General 1994 Respiratory respiratory effort/rhythm Overall: no retractions 02/16/2015 None Full Exam - General 1994 Respiratory respiratory effort/rhythm Overall: normal rate 02/16/2015 None Full Exam - General 1994 Cardiovascular extremities Overall: no clubbing 02/16/2015 None Full Exam - General 1994 Cardiovascular extremities Edema present: pitting 02/16/2015 to thighs bilaterally Full Exam - General 1994 Cardiovascular auscultation of heart Overall: regular rate 02/16/2015 None Full Exam - General 1994 Cardiovascular auscultation of heart Systolic murmur grade: II/ 02/16/2015 None Full Exam - General 1994 Abdomen abdominal exam Overall: no tenderness 02/16/2015 None Full Exam - General 1994 Abdomen abdominal exam Overall: normal bowel sounds 02/16/2015 None Full Exam - General 1994 Lymphatic neck nodes Overall: anterior cervical chain benign 02/16/2015 None Full Exam - General 1994 Lymphatic neck nodes Overall: posterior cervical chain benign 02/16/2015 None Full Exam - General 1994 Musculoskeletal spine, ribs and pelvis Posture: kyphosis 02/16/2015 None Full Exam - General 1994 Musculoskeletal gait and station Station: kyphosis 02/16/2015 None Full Exam - General 1994 Musculoskeletal head and neck Overall: head atraumatic 02/16/2015 None Full Exam - General 1994 Musculoskeletal head and neck Overall: cervical spine benign 02/16/2015 slight buffalo hump Full Exam - General 1994 Neurologic deep tendon reflexes Overall: deep tendon reflexes intact 02/16/2015 None Full Exam - General 1994 Neurologic cranial nerves Overall: crainial nerves 2 - 12 grossly intact 02/16/2015 None Full Exam - General 1994 Psychiatric orientation/consciousness Overall: oriented to person, place and time 02/16/2015 None Full Exam - General 1994 Psychiatric mood and affect Overall: normal mood and affect 02/16/2015 None Full Exam - General 1994 Constitutional general appearance Development: well developed 01/16/2015 None Full Exam - General 1994 Constitutional general appearance Development: appears stated age 0901/16/2015 None Full Exam - General 1994 Constitutional general appearance Hygiene/Attention to Grooming: good hygiene 01/16/2015 None Full Exam - General 1994 Constitutional general appearance Assistive Device: wheelchair 01/16/2015 None Full Exam - General 1994 Eyes conjunctiva /eyelids Overall: conjunctiva clear 01/16/2015 None Full Exam - General 1994 Eyes conjunctiva /eyelids Overall: cornea clear 01/16/2015 None Full Exam - General 1994 Eyes conjunctiva /eyelids Overall: eyelids normal 01/16/2015 None Full Exam - General 1994 Eyes pupils and irises Overall: pupils equal, round, reactive to light and accomodation 01/16/2015 None Full Exam - General 1994 Ears/Nose/Throat lips/teeth/gingiva Overall: benign lips 01/16/2015 None Full Exam - General 1994 Ears/Nose/Throat lips/teeth/gingiva Overall: normal dentition 01/16/2015 None Full Exam - General 1994 Respiratory auscultation Overall: breath sounds clear bilaterally 01/16/2015 None Full Exam - General 1994 Respiratory respiratory effort/rhythm Overall: no retractions 01/16/2015 None Full Exam - General 1994 Respiratory respiratory effort/rhythm Overall: normal rate 01/16/2015 None Full Exam - General 1994 Cardiovascular extremities Overall: no clubbing 01/16/2015 None Full Exam - General 1994 Cardiovascular extremities Edema present: pitting 01/16/2015 to thighs bilaterally Full Exam - General 1994 Cardiovascular auscultation of heart Overall: regular rate 01/16/2015 None Full Exam - General 1994 Cardiovascular auscultation of heart Systolic murmur grade: II/ 01/16/2015 None Full Exam - General 1994 Abdomen abdominal exam Overall: no tenderness 01/16/2015 None Full Exam - General 1994 Abdomen abdominal exam Overall: normal bowel sounds 01/16/2015 None Full Exam - General 1994 Lymphatic neck nodes Overall: anterior cervical chain benign 01/16/2015 None Full Exam - General 1994 Lymphatic neck nodes Overall: posterior cervical chain benign 01/16/2015 None Full Exam - General 1994 Musculoskeletal spine, ribs and pelvis Posture: kyphosis 01/16/2015 None Full Exam - General 1994 Musculoskeletal gait and station Station: kyphosis 01/16/2015 None Full Exam - General 1994 Musculoskeletal head and neck Overall: head atraumatic 01/16/2015 None Full Exam - General 1994 Musculoskeletal head and neck Overall: cervical spine benign 01/16/2015 slight buffalo hump Full Exam - General 1994 Neurologic deep tendon reflexes Overall: deep tendon reflexes intact 01/16/2015 None Full Exam - General 1994 Neurologic cranial nerves Overall: crainial nerves 2 - 12 grossly intact 01/16/2015 None Full Exam - General 1994 Psychiatric orientation/consciousness Overall: oriented to person, place and time 01/16/2015 None Full Exam - General 1994 Psychiatric mood and affect Overall: normal mood and affect 01/16/2015 None Full Exam - General 1994 Constitutional general appearance Development: well developed 12/09/2014 None Full Exam - General 1994 Constitutional general appearance Development: appears stated age 0812/09/2014 None Full Exam - General 1994 Constitutional general appearance Hygiene/Attention to Grooming: good hygiene 12/09/2014 None Full Exam - General 1994 Eyes conjunctiva /eyelids Overall: conjunctiva clear 12/09/2014 None Full Exam - General 1994 Eyes conjunctiva /eyelids Overall: cornea clear 12/09/2014 None Full Exam - General 1994 Eyes conjunctiva /eyelids Overall: eyelids normal 12/09/2014 None Full Exam - General 1994 Eyes pupils and irises Overall: pupils equal, round, reactive to light and accomodation 12/09/2014 None Full Exam - General 1994 Ears/Nose/Throat lips/teeth/gingiva Overall: benign lips 12/09/2014 None Full Exam - General 1994 Ears/Nose/Throat lips/teeth/gingiva Overall: normal dentition 12/09/2014 None Full Exam - General 1994 Respiratory auscultation Overall: breath sounds clear bilaterally 12/09/2014 None Full Exam - General 1994 Respiratory respiratory effort/rhythm Overall: no retractions 12/09/2014 None Full Exam - General 1994 Respiratory respiratory effort/rhythm Overall: normal rate 12/09/2014 None Full Exam - General 1994 Cardiovascular extremities Overall: no clubbing 12/09/2014 None Full Exam - General 1994 Cardiovascular extremities Edema present: pitting 12/09/2014 to thighs bilaterally Full Exam - General 1994 Cardiovascular auscultation of heart Overall: regular rate 12/09/2014 None Full Exam - General 1994 Cardiovascular auscultation of heart Systolic murmur grade: II/ 12/09/2014 None Full Exam - General 1994 Musculoskeletal spine, ribs and pelvis Posture: kyphosis 12/09/2014 None Full Exam - General 1994 Musculoskeletal gait and station Station: kyphosis 12/09/2014 None Full Exam - General 1994 Musculoskeletal head and neck Overall: head atraumatic 12/09/2014 None Full Exam - General 1994 Musculoskeletal head and neck Overall: cervical spine benign 12/09/2014 slight buffalo hump Full Exam - General 1994 Neurologic deep tendon reflexes Overall: deep tendon reflexes intact 12/09/2014 None Full Exam - General 1994 Neurologic cranial nerves Overall: crainial nerves 2 - 12 grossly intact 12/09/2014 None Full Exam - General 1994 Psychiatric orientation/consciousness Overall: oriented to person, place and time 12/09/2014 None Full Exam - General 1994 Psychiatric mood and affect Overall: normal mood and affect 12/09/2014 None Full Exam - General 1994 Abdomen abdominal exam Overall: no tenderness 12/09/2014 None Full Exam - General 1994 Abdomen abdominal exam Overall: normal bowel sounds 12/09/2014 None Full Exam - General 1994 Lymphatic neck nodes Overall: anterior cervical chain benign 12/09/2014 None Full Exam - General 1994 Lymphatic neck nodes Overall: posterior cervical chain benign 12/09/2014 None Full Exam - General 1994 Constitutional general appearance Assistive Device: wheelchair 12/09/2014 None Full Exam - General 1994 Constitutional general appearance Development: well developed 09/28/2014 None Full Exam - General 1994 Constitutional general appearance Development: appears stated age 0609/28/2014 None Full Exam - General 1994 Constitutional general appearance Hygiene/Attention to Grooming: good hygiene 09/28/2014 None Full Exam - General 1994 Eyes conjunctiva /eyelids Overall: conjunctiva clear 09/28/2014 None Full Exam - General 1994 Eyes conjunctiva /eyelids Overall: cornea clear 09/28/2014 None Full Exam - General 1994 Eyes conjunctiva /eyelids Overall: eyelids normal 09/28/2014 None Full Exam - General 1994 Eyes pupils and irises Overall: pupils equal, round, reactive to light and accomodation 09/28/2014 None Full Exam - General 1994 Ears/Nose/Throat lips/teeth/gingiva Overall: benign lips 09/28/2014 None Full Exam - General 1994 Ears/Nose/Throat lips/teeth/gingiva Overall: normal dentition 09/28/2014 None Full Exam - General 1994 Respiratory auscultation Overall: breath sounds clear bilaterally 09/28/2014 None Full Exam - General 1994 Respiratory respiratory effort/rhythm Overall: no retractions 09/28/2014 None Full Exam - General 1994 Respiratory respiratory effort/rhythm Overall: normal rate 09/28/2014 None Full Exam - General 1994 Cardiovascular extremities Overall: no clubbing 09/28/2014 None Full Exam - General 1994 Cardiovascular extremities Edema present: pitting 09/28/2014 to thighs bilaterally Full Exam - General 1994 Cardiovascular auscultation of heart Overall: regular rate 09/28/2014 None Full Exam - General 1994 Cardiovascular auscultation of heart Systolic murmur grade: II/ 09/28/2014 None Full Exam - General 1994 Musculoskeletal spine, ribs and pelvis Posture: kyphosis 09/28/2014 None Full Exam - General 1994 Musculoskeletal gait and station Gait: asymmetric 09/28/2014 None Full Exam - General 1994 Musculoskeletal gait and station Gait: abnormal stride length 09/28/2014 None Full Exam - General 1994 Musculoskeletal gait and station Gait: abnormal stance 09/28/2014 None Full Exam - General 1994 Musculoskeletal gait and station Gait: unable to turn quickly 09/28/2014 None Full Exam - General 1994 Musculoskeletal gait and station Station: kyphosis 09/28/2014 None Full Exam - General 1994 Musculoskeletal head and neck Overall: head atraumatic 09/28/2014 None Full Exam - General 1994 Musculoskeletal head and neck Overall: cervical spine benign 09/28/2014 slight buffalo hump Full Exam - General 1994 Integument inspection of skin Location: left leg 09/28/2014 open wound - healing lesion - Full Exam - General 1994 Neurologic deep tendon reflexes Overall: deep tendon reflexes intact 09/28/2014 None Full Exam - General 1994 Neurologic cranial nerves Overall: crainial nerves 2 - 12 grossly intact 09/28/2014 None Full Exam - General 1994 Psychiatric orientation/consciousness Overall: oriented to person, place and time 09/28/2014 None Full Exam - General 1994 Psychiatric mood and affect Overall: normal mood and affect 09/28/2014 None Full Exam - General 1994 Constitutional general appearance Development: well developed 07/19/2014 None Full Exam - General 1994 Constitutional general appearance Development: appears stated age 0307/19/2014 None Full Exam - General 1994 Constitutional general appearance Hygiene/Attention to Grooming: good hygiene 07/19/2014 None Full Exam - General 1994 Eyes conjunctiva /eyelids Overall: conjunctiva clear 07/19/2014 None Full Exam - General 1994 Eyes conjunctiva /eyelids Overall: cornea clear 07/19/2014 None Full Exam - General 1994 Eyes conjunctiva /eyelids Overall: eyelids normal 07/19/2014 None Full Exam - General 1994 Eyes pupils and irises Overall: pupils equal, round, reactive to light and accomodation 07/19/2014 None Full Exam - General 1994 Ears/Nose/Throat lips/teeth/gingiva Overall: benign lips 07/19/2014 None Full Exam - General 1994 Ears/Nose/Throat lips/teeth/gingiva Overall: normal dentition 07/19/2014 None Full Exam - General 1994 Respiratory auscultation Overall: breath sounds clear bilaterally 07/19/2014 None Full Exam - General 1994 Respiratory respiratory effort/rhythm Overall: no retractions 07/19/2014 None Full Exam - General 1994 Respiratory respiratory effort/rhythm Overall: normal rate 07/19/2014 None Full Exam - General 1994 Cardiovascular extremities Overall: no clubbing 07/19/2014 None Full Exam - General 1994 Cardiovascular extremities Edema present: pitting 07/19/2014 to thighs bilaterally Full Exam - General 1994 Cardiovascular auscultation of heart Overall: regular rate 07/19/2014 None Full Exam - General 1994 Cardiovascular auscultation of heart Systolic murmur grade: II/ 07/19/2014 None Full Exam - General 1994 Musculoskeletal spine, ribs and pelvis Posture: kyphosis 07/19/2014 None Full Exam - General 1994 Musculoskeletal head and neck Overall: head atraumatic 07/19/2014 None Full Exam - General 1994 Musculoskeletal head and neck Overall: cervical spine benign 07/19/2014 slight buffalo hump Full Exam - General 1994 Integument inspection of skin Location: left arm 07/19/2014 at elbow - skin tear -healing Full Exam - General 1994 Integument inspection of skin Location: left leg 07/19/2014 open wound - undulating borders debrided fibrinous tissue - erythema around woundbed- Full Exam - General 1994 Neurologic deep tendon reflexes Overall: deep tendon reflexes intact 07/19/2014 None Full Exam - General 1994 Neurologic cranial nerves Overall: crainial nerves 2 - 12 grossly intact 07/19/2014 None Full Exam - General 1994 Psychiatric orientation/consciousness Overall: oriented to person, place and time 07/19/2014 None Full Exam - General 1994 Psychiatric mood and affect Overall: normal mood and affect 07/19/2014 None Full Exam - General 1994 Ears/Nose/Throat otoscopic exam Overall: external auditory canals clear 07/19/2014 None Full Exam - General 1994 Ears/Nose/Throat otoscopic exam Overall: tympanic membranes clear 07/19/2014 None Full Exam - General 1994 Ears/Nose/Throat oral cavity/pharynx/larynx Overall: oral mucosa clear 07/19/2014 None Full Exam - General 1994 Ears/Nose/Throat oral cavity/pharynx/larynx Overall: oropharyngeal mucosa clear 07/19/2014 None Full Exam - General 1994 Ears/Nose/Throat oral cavity/pharynx/larynx Overall: hypopharynx benign 07/19/2014 None Full Exam - General 1994 Ears/Nose/Throat oral cavity/pharynx/larynx Overall: no masses 07/19/2014 None Full Exam - General 1994 Neck inspection of neck Size: thick None Full Exam - General 1994 Abdomen abdominal exam Overall: no tenderness 07/19/2014 None Full Exam - General 1994 Abdomen abdominal exam Overall: normal bowel sounds 07/19/2014 None Full Exam - General 1994 Lymphatic neck nodes Overall: anterior cervical chain benign 07/19/2014 None Full Exam - General 1994 Lymphatic neck nodes Overall: posterior cervical chain benign 07/19/2014 None Full Exam - General 1994 Constitutional general appearance Development: well developed 07/12/2014 None Full Exam - General 1994 Constitutional general appearance Development: appears stated age 0307/12/2014 None Full Exam - General 1994 Constitutional general appearance Hygiene/Attention to Grooming: good hygiene 07/12/2014 None Full Exam - General 1994 Eyes conjunctiva /eyelids Overall: conjunctiva clear 07/12/2014 None Full Exam - General 1994 Eyes conjunctiva /eyelids Overall: cornea clear 07/12/2014 None Full Exam - General 1994 Eyes conjunctiva /eyelids Overall: eyelids normal 07/12/2014 None Full Exam - General 1994 Eyes pupils and irises Overall: pupils equal, round, reactive to light and accomodation 07/12/2014 None Full Exam - General 1994 Ears/Nose/Throat lips/teeth/gingiva Overall: benign lips 07/12/2014 None Full Exam - General 1994 Ears/Nose/Throat lips/teeth/gingiva Overall: normal dentition 07/12/2014 None Full Exam - General 1994 Respiratory auscultation Overall: breath sounds clear bilaterally 07/12/2014 None Full Exam - General 1994 Respiratory respiratory effort/rhythm Overall: no retractions 07/12/2014 None Full Exam - General 1994 Respiratory respiratory effort/rhythm Overall: normal rate 07/12/2014 None Full Exam - General 1994 Cardiovascular extremities Overall: no clubbing 07/12/2014 None Full Exam - General 1994 Cardiovascular extremities Edema present: pitting 07/12/2014 to thighs bilaterally Full Exam - General 1994 Cardiovascular auscultation of heart Overall: regular rate 07/12/2014 None Full Exam - General 1994 Cardiovascular auscultation of heart Systolic murmur grade: II/ 07/12/2014 None Full Exam - General 1994 Musculoskeletal spine, ribs and pelvis Posture: kyphosis 07/12/2014 None Full Exam - General 1994 Musculoskeletal gait and station Gait: asymmetric 07/12/2014 None Full Exam - General 1994 Musculoskeletal gait and station Gait: abnormal stride length 07/12/2014 None Full Exam - General 1994 Musculoskeletal gait and station Gait: abnormal stance 07/12/2014 None Full Exam - General 1994 Musculoskeletal gait and station Gait: unable to turn quickly 07/12/2014 None Full Exam - General 1994 Musculoskeletal gait and station Station: kyphosis 07/12/2014 None Full Exam - General 1994 Musculoskeletal head and neck Overall: head atraumatic 07/12/2014 None Full Exam - General 1994 Musculoskeletal head and neck Overall: cervical spine benign 07/12/2014 slight buffalo hump Full Exam - General 1994 Neurologic deep tendon reflexes Overall: deep tendon reflexes intact 07/12/2014 None Full Exam - General 1994 Neurologic cranial nerves Overall: crainial nerves 2 - 12 grossly intact 07/12/2014 None Full Exam - General 1994 Psychiatric orientation/consciousness Overall: oriented to person, place and time 07/12/2014 None Full Exam - General 1994 Psychiatric mood and affect Overall: normal mood and affect 07/12/2014 None Full Exam - General 1994 Integument inspection of skin Location: left arm 07/12/2014 at elbow - skin tear - Full Exam - General 1994 Integument inspection of skin Location: left leg 07/12/2014 open wound - undulating borders debrided fibrinous tissue - packed with moist iodoform gauze and dresed with 4 x 4 Full Exam - General 1994 Constitutional general appearance Development: well developed 05/03/2014 None Full Exam - General 1994 Constitutional general appearance Development: appears stated age 0105/03/2014 None Full Exam - General 1994 Constitutional general appearance Hygiene/Attention to Grooming: good hygiene 05/03/2014 None Full Exam - General 1994 Eyes conjunctiva /eyelids Overall: conjunctiva clear 05/03/2014 None Full Exam - General 1994 Eyes conjunctiva /eyelids Overall: cornea clear 05/03/2014 None Full Exam - General 1994 Eyes conjunctiva /eyelids Overall: eyelids normal 05/03/2014 None Full Exam - General 1994 Eyes pupils and irises Overall: pupils equal, round, reactive to light and accomodation 05/03/2014 None Full Exam - General 1994 Ears/Nose/Throat otoscopic exam Overall: external auditory canals clear 05/03/2014 None Full Exam - General 1994 Ears/Nose/Throat otoscopic exam Overall: tympanic membranes clear 05/03/2014 None Full Exam - General 1994 Ears/Nose/Throat lips/teeth/gingiva Overall: benign lips 05/03/2014 None Full Exam - General 1994 Ears/Nose/Throat lips/teeth/gingiva Overall: normal dentition 05/03/2014 None Full Exam - General 1994 Ears/Nose/Throat oral cavity/pharynx/larynx Overall: oral mucosa clear 05/03/2014 None Full Exam - General 1994 Ears/Nose/Throat oral cavity/pharynx/larynx Overall: oropharyngeal mucosa clear 05/03/2014 None Full Exam - General 1994 Ears/Nose/Throat oral cavity/pharynx/larynx Overall: hypopharynx benign 05/03/2014 None Full Exam - General 1994 Ears/Nose/Throat oral cavity/pharynx/larynx Overall: no masses 05/03/2014 None Full Exam - General 1994 Neck inspection of neck Size: thick 09/2014 None Full Exam - General 1994 Respiratory auscultation Overall: breath sounds clear bilaterally 05/03/2014 None Full Exam - General 1994 Respiratory respiratory effort/rhythm Overall: no retractions 05/03/2014 None Full Exam - General 1994 Respiratory respiratory effort/rhythm Overall: normal rate 05/03/2014 None Full Exam - General 1994 Cardiovascular extremities Overall: no clubbing 05/03/2014 None Full Exam - General 1994 Cardiovascular extremities Edema present: pitting 05/03/2014 to thighs bilaterally Full Exam - General 1994 Cardiovascular auscultation of heart Overall: regular rate 05/03/2014 None Full Exam - General 1994 Cardiovascular auscultation of heart Systolic murmur grade: II/ 05/03/2014 None Full Exam - General 1994 Abdomen abdominal exam Overall: no tenderness 05/03/2014 None Full Exam - General 1994 Abdomen abdominal exam Overall: normal bowel sounds 05/03/2014 None Full Exam - General 1994 Lymphatic neck nodes Overall: anterior cervical chain benign 05/03/2014 None Full Exam - General 1994 Lymphatic neck nodes Overall: posterior cervical chain benign 05/03/2014 None Full Exam - General 1994 Musculoskeletal spine, ribs and pelvis Posture: kyphosis 05/03/2014 None Full Exam - General 1994 Musculoskeletal head and neck Overall: head atraumatic 05/03/2014 None Full Exam - General 1994 Musculoskeletal head and neck Overall: cervical spine benign 05/03/2014 slight buffalo hump Full Exam - General 1994 Integument inspection of skin Overall: few scattered moles, no gross abnormalities 05/03/2014 None Full Exam - General 1994 Neurologic deep tendon reflexes Overall: deep tendon reflexes intact 05/03/2014 None Full Exam - General 1994 Neurologic cranial nerves Overall: crainial nerves 2 - 12 grossly intact 05/03/2014 None Full Exam - General 1994 Psychiatric orientation/consciousness Overall: oriented to person, place and time 05/03/2014 None Full Exam - General 1994 Psychiatric mood and affect Overall: normal mood and affect 05/03/2014 None Full Exam - General 1994 Musculoskeletal gait and station Gait: asymmetric 05/03/2014 None Full Exam - General 1994 Musculoskeletal gait and station Gait: abnormal stride length 05/03/2014 None Full Exam - General 1994 Musculoskeletal gait and station Gait: abnormal stance 05/03/2014 None Full Exam - General 1994 Musculoskeletal gait and station Gait: unable to turn quickly 05/03/2014 None Full Exam - General 1994 Musculoskeletal gait and station Station: kyphosis 05/03/2014 None Full Exam - General 1994 Musculoskeletal upper extremity ROM - shoulder: decreased abduction 05/03/2014 None Full Exam - General 1994 Musculoskeletal upper extremity ROM - shoulder: decreased adduction 05/03/2014 None Full Exam - General 1994 Musculoskeletal lower extremity ROM - knee: crepitus 05/03/2014 None Full Exam - General 1994 Constitutional general appearance Development: well developed 03/31/2014 None Full Exam - General 1994 Constitutional general appearance Development: appears stated age 1203/31/2014 None Full Exam - General 1994 Constitutional general appearance Hygiene/Attention to Grooming: good hygiene 03/31/2014 None Full Exam - General 1994 Eyes conjunctiva /eyelids Overall: conjunctiva clear 03/31/2014 None Full Exam - General 1994 Eyes conjunctiva /eyelids Overall: cornea clear 03/31/2014 None Full Exam - General 1994 Eyes conjunctiva /eyelids Overall: eyelids normal 03/31/2014 None Full Exam - General 1994 Eyes pupils and irises Overall: pupils equal, round, reactive to light and accomodation 03/31/2014 None Full Exam - General 1994 Ears/Nose/Throat otoscopic exam Overall: external auditory canals clear 03/31/2014 None Full Exam - General 1994 Ears/Nose/Throat otoscopic exam Overall: tympanic membranes clear 03/31/2014 None Full Exam - General 1994 Ears/Nose/Throat lips/teeth/gingiva Overall: benign lips 03/31/2014 None Full Exam - General 1994 Ears/Nose/Throat lips/teeth/gingiva Overall: normal dentition 03/31/2014 None Full Exam - General 1994 Ears/Nose/Throat oral cavity/pharynx/larynx Overall: oral mucosa clear 03/31/2014 None Full Exam - General 1994 Ears/Nose/Throat oral cavity/pharynx/larynx Overall: oropharyngeal mucosa clear 03/31/2014 None Full Exam - General 1994 Ears/Nose/Throat oral cavity/pharynx/larynx Overall: hypopharynx benign 03/31/2014 None Full Exam - General 1994 Ears/Nose/Throat oral cavity/pharynx/larynx Overall: no masses 03/31/2014 None Full Exam - General 1994 Neck inspection of neck Size: thick 07/2013 None Full Exam - General 1994 Respiratory auscultation Overall: breath sounds clear bilaterally 03/31/2014 None Full Exam - General 1994 Respiratory respiratory effort/rhythm Overall: no retractions 03/31/2014 None Full Exam - General 1994 Respiratory respiratory effort/rhythm Overall: normal rate 03/31/2014 None Full Exam - General 1994 Cardiovascular extremities Overall: no clubbing 03/31/2014 None Full Exam - General 1994 Cardiovascular extremities Edema present: pitting 03/31/2014 to thighs bilaterally Full Exam - General 1994 Cardiovascular auscultation of heart Overall: regular rate 03/31/2014 None Full Exam - General 1994 Cardiovascular auscultation of heart Systolic murmur grade: II/ 03/31/2014 None Full Exam - General 1994 Abdomen abdominal exam Overall: no tenderness 03/31/2014 None Full Exam - General 1994 Abdomen abdominal exam Overall: normal bowel sounds 03/31/2014 None Full Exam - General 1994 Lymphatic neck nodes Overall: anterior cervical chain benign 03/31/2014 None Full Exam - General 1994 Lymphatic neck nodes Overall: posterior cervical chain benign 03/31/2014 None Full Exam - General 1994 Musculoskeletal spine, ribs and pelvis Posture: kyphosis 03/31/2014 None Full Exam - General 1994 Musculoskeletal head and neck Overall: head atraumatic 03/31/2014 None Full Exam - General 1994 Musculoskeletal head and neck Overall: cervical spine benign 03/31/2014 slight buffalo hump Full Exam - General 1994 Integument inspection of skin Overall: few scattered moles, no gross abnormalities 03/31/2014 None Full Exam - General 1994 Neurologic deep tendon reflexes Overall: deep tendon reflexes intact 03/31/2014 None Full Exam - General 1994 Neurologic cranial nerves Overall: crainial nerves 2 - 12 grossly intact 03/31/2014 None Full Exam - General 1994 Psychiatric orientation/consciousness Overall: oriented to person, place and time 03/31/2014 None Full Exam - General 1994 Psychiatric mood and affect Overall: normal mood and affect 03/31/2014 None Full Exam - General 1994 Constitutional general appearance Development: appears stated age 1103/18/2014 None Full Exam - General 1994 Constitutional general appearance Development: well developed 03/18/2014 None Full Exam - General 1994 Constitutional general appearance Hygiene/Attention to Grooming: good hygiene 03/18/2014 None Full Exam - General 1994 Eyes conjunctiva /eyelids Overall: conjunctiva clear 03/18/2014 None Full Exam - General 1994 Eyes conjunctiva /eyelids Overall: cornea clear 03/18/2014 None Full Exam - General 1994 Eyes conjunctiva /eyelids Overall: eyelids normal 03/18/2014 None Full Exam - General 1994 Eyes pupils and irises Overall: pupils equal, round, reactive to light and accomodation 03/18/2014 None Full Exam - General 1994 Ears/Nose/Throat otoscopic exam Overall: external auditory canals clear 03/18/2014 None Full Exam - General 1994 Ears/Nose/Throat otoscopic exam Overall: tympanic membranes clear 03/18/2014 None Full Exam - General 1994 Ears/Nose/Throat lips/teeth/gingiva Overall: benign lips 03/18/2014 None Full Exam - General 1994 Ears/Nose/Throat lips/teeth/gingiva Overall: normal dentition 03/18/2014 None Full Exam - General 1994 Ears/Nose/Throat oral cavity/pharynx/larynx Overall: hypopharynx benign 03/18/2014 None Full Exam - General 1994 Ears/Nose/Throat oral cavity/pharynx/larynx Overall: no masses 03/18/2014 None Full Exam - General 1994 Ears/Nose/Throat oral cavity/pharynx/larynx Overall: oral mucosa clear 03/18/2014 None Full Exam - General 1994 Ears/Nose/Throat oral cavity/pharynx/larynx Overall: oropharyngeal mucosa clear 03/18/2014 None Full Exam - General 1994 Respiratory auscultation Overall: breath sounds clear bilaterally 03/18/2014 None Full Exam - General 1994 Respiratory respiratory effort/rhythm Overall: no retractions 03/18/2014 None Full Exam - General 1994 Respiratory respiratory effort/rhythm Overall: normal rate 03/18/2014 None Full Exam - General 1994 Cardiovascular extremities Overall: no clubbing 03/18/2014 None Full Exam - General 1994 Cardiovascular auscultation of heart Overall: regular rate 03/18/2014 None Full Exam - General 1994 Abdomen abdominal exam Overall: no tenderness 03/18/2014 None Full Exam - General 1994 Abdomen abdominal exam Overall: normal bowel sounds 03/18/2014 None Full Exam - General 1994 Integument inspection of skin Overall: few scattered moles, no gross abnormalities 03/18/2014 None Full Exam - General 1994 Neurologic deep tendon reflexes Overall: deep tendon reflexes intact 03/18/2014 None Full Exam - General 1994 Neurologic cranial nerves Overall: crainial nerves 2 - 12 grossly intact 03/18/2014 None Full Exam - General 1994 Psychiatric orientation/consciousness Overall: oriented to person, place and time 03/18/2014 None Full Exam - General 1994 Psychiatric mood and affect Overall: normal mood and affect 03/18/2014 None Full Exam - General 1994 Neck inspection of neck Size: thick None Full Exam - General 1994 Cardiovascular extremities Edema present: pitting 03/18/2014 to thighs bilaterally Full Exam - General 1994 Cardiovascular auscultation of heart Systolic murmur grade: II/ 03/18/2014 None Full Exam - General 1994 Lymphatic neck nodes Overall: anterior cervical chain benign 03/18/2014 None Full Exam - General 1994 Lymphatic neck nodes Overall: posterior cervical chain benign 03/18/2014 None Full Exam - General 1994 Musculoskeletal spine, ribs and pelvis Posture: kyphosis 03/18/2014 None Full Exam - General 1994 Musculoskeletal head and neck Overall: head atraumatic 03/18/2014 None Full Exam - General 1994 Musculoskeletal head and neck Overall: cervical spine benign 03/18/2014 slight buffalo hump Procedures Procedure Codes Date URINALYSIS NONAUTO W/O SCOPE CPT-4: 85340 12/26/2015 URINALYSIS NONAUTO W/O SCOPE CPT-4: 50837 12/09/2014 URINALYSIS NONAUTO W/O SCOPE CPT-4: 51627 07/12/2014 Vital Signs Date Vital 01/09/2017 Blood Pressure 1: 144/82 Code : 8480-6 BMI: 36.8 Code : 99064-4 Heart Rate 1 : 84 bpm Height: 4'11" SpO2: 95% Weight: 182 lbs 09/27/2016 Blood Pressure 1: 152/74 Code : 8480-6 BMI: 38.1 Code : 38318-1 Heart Rate 1 : 80 bpm Height: 4'11" SpO2: 95% Weight: 188 lbs 8 oz 07/29/2016 Blood Pressure 1: 152/76 Code : 8480-6 BMI: 39.0 Code : 66049-6 Heart Rate 1 : 90 bpm Height: 4'11" SpO2: 97% Weight: 193 lbs 06/28/2016 Blood Pressure 1: 130/74 Code : 8480-6 BMI: 40.6 Code : 31240-7 Heart Rate 1 : 85 bpm Height: 4'11" SpO2: 97% Weight: 201 lbs 03/26/2016 Blood Pressure 1: 130/62 Code : 8480-6 Heart Rate 1: 76 bpm Height: SpO2: 93% Weight: 03/07/2016 Blood Pressure 1: 144/60 Code : 8480-6 BMI: 40.4 Code : 48956-7 Heart Rate 1 : 85 bpm Height: 4'11" SpO2: 95% Weight: 200 lbs 01/24/2016 Blood Pressure 1: 134/50 Code : 8480-6 BMI: 40.4 Code : 53303-2 Heart Rate 1 : 91 bpm Height: 4'11" SpO2: 96% Weight: 200 lbs 01/19/2016 Blood Pressure 1: 158/72 Code : 8480-6 BMI: 40.8 Code : 10122-5 Heart Rate 1 : 82 bpm Height: 4'11" SpO2: 96% Weight: 202 lbs 01/16/2016 Blood Pressure 1: 164/70 Code : 8480-6 BMI: 41.2 Code : 45868-2 Heart Rate 1 : 87 bpm Height: 4'11" SpO2: 94% Weight: 204 lbs 12/26/2015 Blood Pressure 1: 142/70 Code : 8480-6 BMI: 40.4 Code : 23767-1 Heart Rate 1 : 89 bpm Height: 4'11" SpO2: 98% Weight: 200 lbs 10/12/2015 Blood Pressure 1: 140/68 Code : 8480-6 BMI: 39.6 Code : 28806-6 Heart Rate 1 : 81 bpm Height: 4'11" SpO2: 96% Weight: 196 lbs 09/08/2015 Blood Pressure 1: 130/80 Code : 8480-6 BMI: 38.8 Code : 11946-3 Heart Rate 1 : 94 bpm Height: 4'11" SpO2: 95% Weight: 192 lbs 08/21/2015 Blood Pressure 1: 128/82 Code : 8480-6 BMI: 38.4 Code : 76149-1 Heart Rate 1 : 84 bpm Height: 4'11" SpO2: 96% Weight: 190 lbs 02/16/2015 Blood Pressure 1: 138/68 Code : 8480-6 BMI: 37.2 Code : 79200-9 Heart Rate 1 : 81 bpm Height: 4'11" SpO2: 95% Weight: 184 lbs 01/16/2015 Blood Pressure 1: 134/64 Code : 8480-6 BMI: 36.8 Code : 64122-4 Heart Rate 1 : 76 bpm Height: 4'11" SpO2: 95% Weight: 182 lbs 12/09/2014 Blood Pressure 1: 130/64 Code : 8480-6 Heart Rate 1: 83 bpm Height: 4'11" SpO2: 93% Weight: 09/28/2014 Blood Pressure 1: 124/70 Code : 8480-6 Heart Rate 1: 68 bpm Height: Weight: 07/19/2014 Blood Pressure 1: 132/58 Code : 8480-6 Heart Rate 1: 76 bpm Height: Weight: 171 lbs 07/12/2014 Blood Pressure 1: 118/74 Code : 8480-6 Heart Rate 1: 80 bpm Height: Weight: 172 lbs 05/03/2014 BMI: 36.2 Code: 63930-7 Height: 4'11" Weight: 179 lbs 03/31/2014 Blood Pressure 1: 112/68 Code : 8480-6 BMI: 35.1 Code : 42753-8 Heart Rate 1 : 74 bpm Height: 4'11" Weight: 174 lbs 03/18/2014 Blood Pressure 1: 138/70 Code : 8480-6 BMI: 37.0 Code : 10626-0 Heart Rate 1 : 78 bpm Height: 4'11" Weight: 183 lbs Functional Status No Functional Status data History of Present Illness Symptom Name Status Result Effective Date Notes edema Onset and Resolution ongoing 01/09/2017 None urinary frequency Quality constant 01/09/2017 None urinary frequency Onset and Resolution gradual in onset 01/09/2017 None urinary frequency Onset of Symptom 6 months ago 01/09/2017 None urinary frequency Frequency of Episodes hourly 01/09/2017 None urinary frequency Frequency of Episodes increasing 01/09/2017 None urinary urgency Quality constant 01/09/2017 None urinary urgency Onset and Resolution gradual in onset 01/09/2017 None urinary urgency Onset of Symptom 6 months ago 01/09/2017 None urinary urgency Frequency of Episodes daily 01/09/2017 None urinary urgency Frequency of Episodes increasing 01/09/2017 None urinary urgency Timing of Episodes at night 01/09/2017 None urinary urgency Timing of Episodes upon awakening 01/09/2017 None hip pain Location on the right 09/27/2016 None hip pain Quality chronic 09/27/2016 None hip pain Onset and Resolution ongoing 09/27/2016 None hip pain Frequency of Episodes unchanged 09/27/2016 None hip pain Limitation on Activities allows ambulation 09/27/2016 None hip pain Severity moderate 09/27/2016 None hip pain Sports Participation not significant 09/27/2016 None hip pain Alleviating Factors NSAID's 09/27/2016 None hip pain Alleviating Factors rest 09/27/2016 None hip pain Exacerbating Factors activity 09/27/2016 None hip pain Assistive devices walker 09/27/2016 None toe pain due to infection Location medial right hallux nailplate 07/29/2016 None toe pain due to infection Quality dull pain 07/29/2016 None toe pain due to infection Quality throbbing 07/29/2016 None toe pain due to infection Pertinent Findings stiffness 07/29/2016 None toe pain due to infection Pertinent Findings redness 07/29/2016 None toe pain due to infection Pertinent Findings pain with movement 07/29/2016 None lower leg pain Location on the right 07/29/2016 None lower leg pain Location on the left 07/29/2016 None lower leg pain Quality dull pain 07/29/2016 None lower leg pain Quality intermittent 07/29/2016 None lower leg pain Timing of Episodes at night 07/29/2016 None lower leg pain Timing of Episodes in the morning 07/29/2016 None lower leg pain Onset of Symptom _ months ago 07/29/2016 None lower leg pain Pertinent Findings pain with movement 07/29/2016 None lower leg pain Pertinent Findings redness 07/29/2016 None lower leg pain Pertinent Findings swelling 07/29/2016 None shoulder pain Location on the right shoulder 06/28/2016 None shoulder pain Quality aching 06/28/2016 None shoulder pain Quality intermittent 06/28/2016 None shoulder pain Onset and Resolution sudden in onset 06/28/2016 None shoulder pain Onset of Symptom 1 weeks ago 06/28/2016 None shoulder pain Limitation on Activities does not limit activities 06/28/2016 None shoulder pain Pertinent Findings Denies loss of range of motion 06/28/2016 None shoulder pain Pertinent Findings Denies limited range of motion 06/28/2016 None back pain Location thoracic spine 06/28/2016 None back pain Quality aching 06/28/2016 None back pain Quality constant 06/28/2016 None hip pain Location on the left 06/28/2016 None hip pain Quality dull ache 06/28/2016 None hip pain Quality sharp pain 06/28/2016 when getting up from her chair hip pain Onset of Symptom 1 weeks ago 06/28/2016 None hip pain Mechanism of injury ground level fall 06/28/2016 None hip pain Pertinent Findings Denies decreased range of motion 06/28/2016 None hip pain Pertinent Findings pain with movement 06/28/2016 None hip pain Pertinent Findings Denies pain at rest 06/28/2016 None hip pain Pertinent Findings Denies swelling 06/28/2016 None hip pain Pertinent Findings Denies stiffness 06/28/2016 None edema Onset and Resolution sudden in onset 03/26/2016 None edema Limitation on Activities moderately limits activities 03/26/2016 None edema Frequency of Episodes daily 03/26/2016 None edema Pertinent Findings Denies dyspnea 03/26/2016 None neck pain Location in the anterior area 03/26/2016 None neck pain Quality aching 03/26/2016 None neck pain Onset and Resolution sudden in onset 03/26/2016 None neck pain Onset of Symptom 1 months ago 03/26/2016 None neck pain Frequency of Episodes daily 03/26/2016 None flank pain Location on the left 03/07/2016 None flank pain Radiating the back 03/07/2016 None flank pain Quality intermittent 03/07/2016 None flank pain Quality cramping 03/07/2016 None flank pain Quality aching 03/07/2016 None flank pain Onset and Resolution sudden in onset 03/07/2016 None edema Onset and Resolution sudden in onset 01/24/2016 None edema Limitation on Activities moderately limits activities 01/24/2016 None edema Frequency of Episodes daily 01/24/2016 None edema Pertinent Findings Denies dyspnea 01/24/2016 None edema Onset and Resolution sudden in onset 01/19/2016 None edema Onset of Symptom 1 months ago 01/19/2016 None edema Limitation on Activities moderately limits activities 01/19/2016 None edema Frequency of Episodes daily 01/19/2016 None skin lesion Onset and Resolution resolved 01/19/2016 None edema Onset and Resolution sudden in onset 01/16/2016 None edema Onset of Symptom 1 months ago 01/16/2016 None edema Limitation on Activities moderately limits activities 01/16/2016 None edema Frequency of Episodes daily 01/16/2016 None skin lesion Location Right Knee 01/16/2016 None skin lesion Location Left Hip 01/16/2016 None skin lesion Onset and Resolution sudden in onset 01/16/2016 None back pain Location thoracic spine 01/16/2016 None back pain Quality aching 01/16/2016 None back pain Quality constant 01/16/2016 None edema Onset and Resolution ongoing 12/26/2015 None edema Onset of Symptom months ago 12/26/2015 None edema Frequency of Episodes daily 12/26/2015 None edema Alleviating Factors rest 12/26/2015 None edema Location on the left leg 12/26/2015 None edema Location on the right leg 12/26/2015 None urinary incontinence Quality constant 12/26/2015 None urinary incontinence Onset and Resolution ongoing 12/26/2015 None urinary incontinence Onset of Symptom during adulthood 12/26/2015 None hypertension Onset of Symptom during adulthood 12/26/2015 None hypertension Alleviating Factors medication 12/26/2015 None hypertension Pertinent Findings edema 12/26/2015 None diabetes mellitus Quality insulin dependent 12/26/2015 None diabetes mellitus Alleviating Factors insulin 12/26/2015 -lantus diabetes mellitus Exacerbating Factors diet 12/26/2015 None hip pain Location on the left 12/26/2015 None hip pain Onset and Resolution ongoing 12/26/2015 None hip pain Onset and Resolution with weight bearing activities 12/26/2015 None hip pain Limitation on Activities allows ambulation 12/26/2015 None hip pain Limitation on Activities moderately limits activities 12/26/2015 None hip pain Severity severe 12/26/2015 None hip pain Alleviating Factors rest 12/26/2015 None hip pain Exacerbating Factors activity 12/26/2015 None hip pain Exacerbating Factors exertion 12/26/2015 None hip pain Location on the right 12/26/2015 None hip pain Quality constant 12/26/2015 None hip pain Pertinent Findings pain with movement 12/26/2015 None hypertension Blood Pressure Values patient checking blood pressure at home - did not bring in readings 12/26/2015 None hypertension Pertinent Findings Denies dizziness 12/26/2015 None hypertension Pertinent Findings Denies dyspnea 12/26/2015 None diabetes mellitus Test results Pt checking blood glucose readings, did not bring results to clinic 12/26/2015 None diabetes mellitus Glucose monitoring twice daily 12/26/2015 None diabetes mellitus Pertinent Findings Denies nausea 12/26/2015 None edema Onset and Resolution ongoing 10/12/2015 None edema Onset of Symptom months ago 10/12/2015 None edema Frequency of Episodes daily 10/12/2015 None edema Alleviating Factors rest 10/12/2015 None edema Location on the left leg 10/12/2015 None edema Location on the right leg 10/12/2015 None urinary incontinence Onset and Resolution ongoing 10/12/2015 None urinary incontinence Quality constant 10/12/2015 None urinary incontinence Onset of Symptom during adulthood 10/12/2015 None hypertension Onset and Resolution ongoing 10/12/2015 None hypertension Onset of Symptom during adulthood 10/12/2015 None hip pain Location on the left 10/12/2015 None diabetes mellitus Quality insulin dependent 10/12/2015 None diabetes mellitus Alleviating Factors insulin 10/12/2015 -lantus diabetes mellitus Exacerbating Factors diet 10/12/2015 None hip pain Severity severe 10/12/2015 None hip pain Limitation on Activities allows ambulation 10/12/2015 None hip pain Limitation on Activities moderately limits activities 10/12/2015 None hip pain Onset and Resolution ongoing 10/12/2015 None hip pain Onset and Resolution with weight bearing activities 10/12/2015 None hip pain Alleviating Factors rest 10/12/2015 None hip pain Exacerbating Factors activity 10/12/2015 None hip pain Exacerbating Factors exertion 10/12/2015 None diabetes mellitus Test results Pt checking blood glucose at home, see scanned readings 2015 None diabetes mellitus Glucose monitoring twice daily 10/12/2015 None hypertension Alleviating Factors medication 10/12/2015 None hypertension Pertinent Findings edema 10/12/2015 None edema Onset and Resolution ongoing 09/08/2015 None edema Onset of Symptom _ months ago 09/08/2015 None edema Frequency of Episodes daily 09/08/2015 None edema Pertinent Findings Denies back pain 09/08/2015 None edema Pertinent Findings Denies dark urine 09/08/2015 None edema Pertinent Findings Denies tachypnea 09/08/2015 None edema Pertinent Findings Denies nausea 09/08/2015 None edema Location on the right leg 09/08/2015 None edema Location on the left leg 09/08/2015 None edema Alleviating Factors rest 09/08/2015 None urinary incontinence Quality intermittent 09/08/2015 None urinary incontinence Onset and Resolution ongoing 09/08/2015 None urinary incontinence Pertinent Findings Denies back pain 09/08/2015 None urinary incontinence Pertinent Findings Denies pelvic pain 09/08/2015 None diabetes mellitus Quality IDDM 08/21/2015 None diabetes mellitus Blood glucose levels greater than 120 08/21/2015 None diabetes mellitus Glucose monitoring twice daily 08/21/2015 None diabetes mellitus Pertinent Findings Denies dizziness 08/21/2015 None diabetes mellitus Pertinent Findings Denies dyspnea 08/21/2015 None diabetes mellitus Pertinent Findings Denies numbness 08/21/2015 None diabetes mellitus Test results Pt checking blood glucose at home, see scanned readings 2015 None back pain Quality aching 02/16/2015 None diabetes mellitus Pertinent Findings Denies dizziness 02/16/2015 None diabetes mellitus Pertinent Findings Denies dyspnea 02/16/2015 None diabetes mellitus Quality IDDM 02/16/2015 lantus diabetes mellitus Onset of Symptom onset as an adult 02/16/2015 None bladder incontinence Exacerbating Factors medication 01/16/2015 None bladder incontinence Frequency of Episodes weekly 01/16/2015 None bladder incontinence Limitation on Activities does not limit activities 01/16/2015 None bladder incontinence Onset and Resolution ongoing 01/16/2015 None bladder incontinence Triggers no known associated factors 01/16/2015 None bladder incontinence Pertinent Findings nocturia 01/16/2015 None bladder incontinence Pertinent Findings bladder pain 01/16/2015 None bladder incontinence Pertinent Findings urinary urgency 01/16/2015 None diarrhea Quality intermittent 01/16/2015 None diarrhea Quality loose 01/16/2015 None diarrhea Onset and Resolution ongoing 01/16/2015 None diarrhea Onset and Resolution gradual in onset 01/16/2015 None diarrhea Triggers no known associated factors 01/16/2015 None diarrhea Exacerbating Factors medication 01/16/2015 None edema Onset and Resolution ongoing 12/09/2014 None edema Onset of Symptom 1 years ago 12/09/2014 None edema Limitation on Activities moderately limits activities 12/09/2014 None edema Frequency of Episodes daily 12/09/2014 None edema Triggers no known associated factors 12/09/2014 None edema Location on both legs 12/09/2014 None edema Quality constant 12/09/2014 None edema Quality pitting 12/09/2014 None fatigue Limitation on Activities moderately limits activities 12/09/2014 None fatigue Frequency of Episodes daily 12/09/2014 None fatigue Onset of Symptom _ months ago 12/09/2014 None fatigue Triggers no known associated factors 12/09/2014 None fatigue Pertinent Findings back pain 12/09/2014 None fatigue Pertinent Findings edema 12/09/2014 None fatigue Exacerbating Factors exertion 12/09/2014 None fatigue Exacerbating Factors activity 12/09/2014 None diabetes mellitus Quality IDDM 09/28/2014 lantus 15 u hs diabetes mellitus Onset of Symptom _ years ago 09/28/2014 None diabetes mellitus Test results Pt checking blood glucose at home, see scanned readings 2014 None diabetes mellitus Glucose monitoring before meals 09/28/2014 None diabetes mellitus Glucose monitoring bedtime 09/28/2014 ACHS diabetes mellitus Test results fasting glucose 115-140 09/28/2014 None diabetes mellitus Blood glucose levels greater than 120 09/28/2014 None diabetes mellitus Pertinent Findings Denies dizziness 09/28/2014 None diabetes mellitus Pertinent Findings Denies dyspnea 09/28/2014 None skin lesion Quality chronic 09/28/2014 None skin lesion Quality non-tender 09/28/2014 None skin lesion Onset of Symptom _ days ago 07/19/2014 this am skin tear to left elbow also seen wound care for wound on left lower leg diabetes mellitus Onset of Symptom onset as an adult 07/19/2014 None diabetes mellitus Severity moderate 07/19/2014 None diabetes mellitus Pertinent Findings Denies dizziness 07/19/2014 None diabetes mellitus Pertinent Findings Denies dyspnea 07/19/2014 None back pain Location lumbar-sacral spine 07/19/2014 buttocks- is having a hard time lifting her feet edema Quality intermittent 07/19/2014 bilateral lower extremity- pitting edema Onset of Symptom 2 days ago 07/19/2014 started getting worse on Friday back pain Onset and Resolution ongoing 07/19/2014 reports severe pain and not getting up much diabetes mellitus Onset of Symptom onset as an adult 07/12/2014 None diabetes mellitus Severity moderate 07/12/2014 None diabetes mellitus Pertinent Findings Denies dizziness 07/12/2014 None diabetes mellitus Pertinent Findings Denies dyspnea 07/12/2014 None skin lesion Onset of Symptom _ days ago 07/12/2014 this am skin tear to left elbow back pain Location lumbar-sacral spine 07/12/2014 buttocks- is having a hard time lifting her feet urinary urgency Onset of Symptom _ weeks ago 07/12/2014 burning on urination urinary urgency Pertinent Findings back pain 07/12/2014 None urinary urgency Pertinent Findings Denies bladder pain 07/12/2014 None diabetes mellitus Onset of Symptom onset as an adult 05/03/2014 None diabetes mellitus Severity moderate 05/03/2014 None diabetes mellitus Pertinent Findings Denies dizziness 05/03/2014 None diabetes mellitus Pertinent Findings Denies dyspnea 05/03/2014 None edema Quality intermittent 05/03/2014 None edema Onset and Resolution ongoing 05/03/2014 None diabetes mellitus Pertinent Findings Denies dizziness 03/31/2014 None diabetes mellitus Pertinent Findings Denies dyspnea 03/31/2014 None urinary incontinence Quality constant 03/31/2014 None urinary incontinence Pertinent Findings back pain 03/31/2014 disc buldge edema Quality intermittent 03/31/2014 None edema Onset and Resolution ongoing 03/31/2014 None diabetes mellitus Test results Pt checking blood glucose at home, see scanned readings 2013 None diabetes mellitus Glucose monitoring twice daily 03/31/2014 None diabetes mellitus Onset of Symptom onset as an adult 03/31/2014 None diabetes mellitus Severity moderate 03/31/2014 None diabetes mellitus Test results Pt checking blood glucose at home, see scanned readings 2013 None diabetes mellitus Glucose monitoring daily 03/18/2014 None diabetes mellitus Pertinent Findings Denies dizziness 03/18/2014 None diabetes mellitus Pertinent Findings Denies dyspnea 03/18/2014 None urinary incontinence Quality constant 03/18/2014 None urinary incontinence Pertinent Findings back pain 03/18/2014 disc buldge Advance Directives No Advance Directive data Encounters Encounter Performer Location Codes Date 22406 EST. PATIENT, LEVEL III Diagnosis: Localized edema[ICD10: R60.0] Diagnosis: Frequency of micturition[ICD10: R35.0] Diagnosis: Urgency of urination[ICD10: R39.15] [facility] CPT-4: 25509 01/09/2017 ([id number]) 77853 EST. PATIENT, LEVEL IV Diagnosis: Essential (primary) hypertension[ICD10: I10] Diagnosis: Type 2 diabetes mellitus with hyperglycemia[ICD10: E11.65] Diagnosis: Parkinson's disease[ICD10: G20] Diagnosis: Bilateral primary osteoarthritis of hip[ICD10: M16.0] [facility] CPT-4: 89048 09/27/2016 34197 EST. PATIENT, LEVEL IV Diagnosis: Pain in right toe(s)[ICD10: M79.674] Diagnosis: Localized edema[ICD10: R60.0] Diagnosis: Low back pain[ICD10: M54.5] [facility] CPT-4 : 39351 07/29/2016 ([id number]) 47537 EST. PATIENT, LEVEL III Diagnosis: Pain in left hip[ICD10: M25.552] Amee Islas MD, [facility] CPT-4: 76692 06/28/2016 ([id number]) 01490 EST. PATIENT, LEVEL IV Diagnosis: Type 2 diabetes mellitus with hyperglycemia[ICD10: E11.65] Diagnosis: Parkinson's disease[ICD10: G20] Diagnosis: Essential (primary) hypertension[ICD10: I10] Diagnosis: Muscle weakness (generalized)[ICD10: M62.81] Diagnosis: Localized edema[ICD10: R60.0] Celestina Islas MD, [facility] CPT- 4: 72476 03/26/2016 62761 EST. PATIENT, LEVEL III Diagnosis: Dysuria[ICD10: R30.0] Diagnosis: Left upper quadrant pain[ICD10: R10.12] Tanvi Islas MD, [facility] CPT-4: 38607 03/07/2016 37024 EST. PATIENT, LEVEL IV Diagnosis: Encounter for follow-up examination after completed treatment for conditions other than malignant neoplasm[ICD10: Z09] Tanvi Islas MD, [facility] CPT-4: 41754 01/24/2016 ([id number]) Miscellaneous no charge Diagnosis: Localized edema[ICD10: R60.0] Tanvi Islas MD, [facility] CPT-4 : 76727 01/19/2016 41689 EST. PATIENT, LEVEL IV Diagnosis: Localized edema[ICD10: R60.0] Diagnosis: Other skin changes[ICD10: R23.8] Diagnosis: Low back pain[ICD10: M54.5] Tanvi Islas MD, [facility] CPT-4 : 44920 01/16/2016 ([id number]) 54561 EST. PATIENT, LEVEL IV Diagnosis: Type 2 diabetes mellitus with hyperglycemia[ICD10: E11.65] Diagnosis: Parkinson's disease[ICD10: G20] Diagnosis: Essential (primary) hypertension[ICD10: I10] Diagnosis: Dysuria[ICD10: R30.0] Diagnosis: Low back pain[ICD10: M54.5] Celestnia Islas MD, [facility] CPT- 4: 40602 12/26/2015 [id number]) 38345 EST. PATIENT, LEVEL IV Diagnosis: Type 2 diabetes mellitus with hyperglycemia[ICD10: E11.65] Diagnosis: Parkinson's disease[ICD10: G20] Diagnosis: Essential (primary) hypertension[ICD10: I10] Diagnosis: Bilateral primary osteoarthritis of hip[ICD10: M16.0] Celestina Islas MD, [facility] CPT-4: 45952 10/12/2015 42821 09617 EST. PATIENT, LEVEL III Diagnosis: Essential (primary) hypertension[ICD10: I10] Diagnosis: Localized edema[ICD10: R60.0] Diagnosis: Unsteadiness on feet[ICD10: R26.81] Diagnosis: Muscle weakness (generalized)[ICD10: M62.81] Diagnosis: Bilateral primary osteoarthritis of hip[ICD10: M16.0] Amee Islas MD, [facility] CPT-4: 49450 09/08/2015 [id number]) 58746 EST. PATIENT, LEVEL IV Diagnosis: Type 2 diabetes mellitus with hyperglycemia[ICD10: E11.65] Diagnosis: Essential (primary) hypertension[ICD10: I10] Diagnosis: Muscle weakness (generalized)[ICD10: M62.81] Diagnosis: Parkinson's disease[ICD10: G20] Diagnosis: Low back pain[ICD10: M54.5] Amee Islas MD, [facility] CPT-4: 85346 08/21/2015 [id number]) 89143 EST. PATIENT, LEVEL IV Diagnosis: Parkinson's disease[ICD10: G20] Diagnosis: Essential (primary) hypertension[ICD10: I10] Diagnosis: Type 2 diabetes mellitus with hyperglycemia[ICD10: E11.65] Diagnosis: Pain in unspecified hip[ICD10: M25.559] Celestina Islas MD, [facility] CPT-4: 29953 02/16/2015 47840 74516 EST. PATIENT, LEVEL IV Diagnosis: Dysuria[ICD9: 788.1] Diagnosis: Parkinson's disease[ICD9: 332.0] Diagnosis: ESSENTIAL HYPERTENSION[ICD9: 401.9] Amee Islas MD, [facility] CPT-4: 50073 01/16/2015 [id number]) 33196 EST. PATIENT, LEVEL IV Diagnosis: UTI (urinary tract infection)[ICD9: 599.0] Diagnosis: DM W/O COMPLICATION TYPE II, UNCONTROLLED[ICD9: 250.02] Diagnosis: ESSENTIAL HYPERTENSION[ICD9: 401.9] Diagnosis: EDEMA[ICD9: 782.3] DIEGO Diaz MD CPT-4: 44610 12/09/2014 ([id number]) 29477 EST. PATIENT, LEVEL IV Diagnosis: ESSENTIAL HYPERTENSION[ICD9: 401.9] Diagnosis: DIABETES TYPE II[ICD9: 250.00] Diagnosis: Parkinson's disease[ICD9: 332.0] Celestina Islas MD [facility] CPT-4: 47491 09/28/2014 ([id number]) Patient admitted to the hospital from clinic (NO CHARGE) Diagnosis: Back pain[ICD9: 724.5] Diagnosis: EDEMA[ICD9: 782.3] Diagnosis: MALAISE AND FATIGUE[ICD9: 780.79] Diagnosis: Parkinson's disease[ICD9: 332.0] Diagnosis: ESSENTIAL HYPERTENSION[ICD9: 401.9] Diagnosis: Cellulitis[ICD9: 682.9] Diagnosis: Hip pain[ICD9: 719.45] Celestina Islas MD, [facility] CPT-4: 59491F 07/19/2014 ([id number]) 96976 EST. PATIENT, LEVEL IV Diagnosis: DM W/O COMPLICATION TYPE II, UNCONTROLLED[ICD9: 250.02] Diagnosis: Back pain[ICD9: 724.5] Diagnosis: EDEMA[ICD9: 782.3] Diagnosis: Parkinson's disease[ICD9: 332.0] [facility] CPT-4: 45796 07/12/2014 [id number]) 85270 EST. PATIENT, LEVEL IV Diagnosis: EDEMA[ICD9: 782.3] Diagnosis: Chronic osteoarthritis[ICD9: 715.90] Diagnosis: Bilateral arm weakness[ICD9: 729.89] Diagnosis: Parkinson's disease[ICD9: 332.0] Diagnosis: Back pain[ICD9: 724.5] [facility] CPT-4: 53357 05/03/2014 ([id number]) 08593 EST. PATIENT, LEVEL IV Diagnosis: DM W/O COMPLICATION TYPE II, UNCONTROLLED[ICD9: 250.02] Diagnosis: ESSENTIAL HYPERTENSION[ICD9: 401.9] Diagnosis: EDEMA[ICD9: 782.3] Diagnosis: MALAISE AND FATIGUE[ICD9: 780.79] [facility] CPT-4: 98628 03/31/2014 ([id number]) OFFICE/OUTPATIENT VISIT NEW Diagnosis: ESSENTIAL HYPERTENSION[ICD9: 401.9] Diagnosis: DM W/O COMPLICATION TYPE II, UNCONTROLLED[ICD9: 250.02] Diagnosis: OBESITY[ICD9: 278.00] Diagnosis: EDEMA[ICD9: 782.3] Diagnosis: MALAISE AND FATIGUE[ICD9: 780.79] Diagnosis: Restless leg[ICD9: 333.94] [facility] CPT- 4: 23324 03/18/2014 Plan of Care Planned Activity Notes Codes Status Date Visit Plan: Edema - pt has been advised to elevate legs to prevent dependent edema, compression has been recommended to help to naturally decrease peripheral edema. Diuretic use has been discussed and pt has been instructed in appropriate use of such medication as necessary to further attempt to reduce peripheral edema. Urinary urgency and frequency - will check UA and treat as indicated - will DC myrbetric and start on Vesicare - pt is to notify clinic if symptoms do not improve, if they worsen, or with any changes, questions, or concerns. 01/09/2017 Appointment: Tanvi Wiggins WPtel: [address] [place], [place] [phone] (30 min) [facility] 01/09/2017 Patient Education: Patient Medication Summary Completed 01/09/2017 Patient Education: Obesity Completed 01/09/2017 Visit Plan: Hypertension - well controlled - continue with current medications, continue with no added salt diet. Pt has been encouraged to exercise daily. The pt has been advised to call the office if there are any acute concerns about change in blood pressure readings at home. Diabetes Mellitus - controlled - per recent FSBS reports. I have recommended for the patient to have follow up labs prior to the next office visit. The patient has been instructed to continue with current medications as previously directed, continue with regular FSBS monitoring to assure continued control of diabetes. Pt to call for any acute concerns, complaints, or if the blood glucose readings are starting to become less controlled. Chronic Pain Syndrome - pt has chronic pain - has been maintained on current medications, has not sought out other medications, only uses PRN pain medications as directed, and understands the consequences of over-medication. 09/27/2016 Appointment: Amee Esteves WPtel: [facility] [phone] (30 min) Complex 09/27/2016 Patient Education: Patient Medication Summary Completed 09/27/2016 Patient Education: Hypertension Completed 09/27/2016 Visit Plan: Low back pain- the patient was instructed in appropriate posture, need for weight loss to alleviate abdominal obesity that is worsening the patient's back pain.. The pt is to use prn antiinflammatories to manage acute pain. The patient is to call the office if the pain is worsening or does not improve. Right toe pain/erythema - gout vs Cellulitis - will check uric acid level - continue with oral antibiotics as previously directed, return to clinic as previously directed, call for acute change in symptoms, worsening redness, warmth, discharge. Edema - pt has been advised to elevate legs to prevent dependent edema, compression has been recommended to help to naturally decrease peripheral edema. Diuretic use has been discussed and pt has been instructed in appropriate use of such medication as necessary to further attempt to reduce peripheral edema. 07/29/2016 Appointment: Tanvi Wiggins WPtel: [facility] [place] (30 min) Complex 07/29/2016 Patient Education: Patient Medication Summary Completed 07/29/2016 Patient Education: Obesity Completed 07/29/2016 Visit Plan: Left hip pain-recent fall-ER f/u-pain improving -no changes in treatment at this time. 06/28/2016 Appointment: Amee Esteves WPtel: [facility] [phone] (30 min) Complex 06/28/2016 Patient Education: Patient Medication Summary Completed 06/28/2016 Patient Education: Obesity Completed 06/28/2016 Visit Plan: Diabetes Mellitus - controlled - per recent FSBS reports. I have recommended for the patient to have follow up labs prior to the next office visit. The patient has been instructed to continue with current medications as previously directed, continue with regular FSBS monitoring to assure continued control of diabetes. Pt to call for any acute concerns, complaints, or if the blood glucose readings are starting to become less controlled. Hypertension - well controlled - continue with current medications, continue with no added salt diet. Pt has been encouraged to exercise daily. The pt has been advised to call the office if there are any acute concerns about change in blood pressure readings at home. Edema - monitor symptoms - continue with lasix. 03/26/2016 Appointment: Celestina Islas WPtel: [facility] [place] (15 min) Moderate 03/26/2016 Patient Education: Patient Medication Summary Completed 03/26/2016 Care Plan: COMPLETE CBC AUTOMATED LOINC : 72098-6 Pending 03/26/2016 Care Plan: MICROALBUMIN QUANTITATIVE LOINC : 80703-1 Pending 03/26/2016 Visit Plan: Left flank pain/UTI - pt with positive urinalysis - culture sent if appropriate. Antibiotic electronically prescribed to pt's pharmacy of choice. Pt to call if symptoms do not improve. 03/07/2016 Appointment: Tanvi Wiggins WPtel: [facility] [place] (30 min) Complex 03/07/2016 Patient Education: Patient Medication Summary Completed 03/07/2016 Patient Education: Obesity Completed 03/07/2016 Care Plan: Urine Culture Pending 03/07/2016 Visit Plan: Edema - pt has been advised to elevate legs to prevent dependent edema, compression has been recommended to help to naturally decrease peripheral edema. Diuretic use has been discussed and pt has been instructed in appropriate use of such medication as necessary to further attempt to reduce peripheral edema. 01/24/2016 Appointment: Amee Esteves WPtel: [phone] (30 min) Complex 01/24/2016 Patient Education: Patient Medication Summary Completed 01/24/2016 Visit Plan: continue orders - notify clinic if symptoms do not improve or with any concerns. 01/19/2016 Patient Education: Patient Medication Summary Completed 01/19/2016 Visit Plan: Low back pain- the patient was instructed in appropriate posture, need for weight loss to alleviate abdominal obesity that is worsening the patient's back pain.. The pt is to use prn antiinflammatories to manage acute pain. The patient is to call the office if the pain is worsening or does not improve. Edema - pt has been advised to elevate legs to prevent dependent edema, compression has been recommended to help to naturally decrease peripheral edema. Diuretic use has been discussed and pt has been instructed in appropriate use of such medication as necessary to further attempt to reduce peripheral edema. irritation in bilateral popliteal regions - Pt was instructed to keep the wound clean, wash with antibacterial soap, use triple antibiotic ointment, call if redness, pustular drainage, or any other acute concerns. 01/16/2016 Appointment: Amee Esteves WPtel: [address] [phone] (30 min) Complex 01/16/2016 Patient Education: Patient Medication Summary Completed 01/16/2016 Visit Plan: Diabetes Mellitus - controlled - per recent FSBS reports. I have recommended for the patient to have follow up labs prior to the next office visit. The patient has been instructed to continue with current medications as previously directed, continue with regular FSBS monitoring to assure continued control of diabetes. Pt to call for any acute concerns, complaints, or if the blood glucose readings are starting to become less controlled. Hypertension - well controlled - continue with current medications, continue with no added salt diet. Pt has been encouraged to exercise daily. The pt has been advised to call the office if there are any acute concerns about change in blood pressure readings at home. Check UA Parkinsons disease - stable on current medications - no change in treatment. 12/26/2015 Appointment: Celestina Islas WPtel: [phone] [facility] [place] (15 min) Moderate 12/26/2015 Patient Education: Patient Medication Summary Completed 12/26/2015 Patient Education: Obesity Completed 12/26/2015 Visit Plan: Diabetes Mellitus - controlled - per recent FSBS reports. I have recommended for the patient to have follow up labs prior to the next office visit. The patient has been instructed to continue with current medications as previously directed, continue with regular FSBS monitoring to assure continued control of diabetes. Pt to call for any acute concerns, complaints, or if the blood glucose readings are starting to become less controlled. Hypertension - well controlled - continue with current medications, continue with no added salt diet. Pt has been encouraged to exercise daily. The pt has been advised to call the office if there are any acute concerns about change in blood pressure readings at home. Hip pain/OA - continue with prn hydrocodone 10/12/2015 Appointment: Celestina Islas WPtel: [phone] [facility] (15 min) Moderate 10/12/2015 Patient Education: Patient Medication Summary Completed 10/12/2015 Patient Education: Obesity Completed 10/12/2015 Patient Education: Hypertension Completed 10/12/2015 Visit Plan: Hypertension - well controlled - continue with current medications, continue with no added salt diet. Pt has been encouraged to exercise daily. The pt has been advised to call the office if there are any acute concerns about change in blood pressure readings at home. Edema - pt has been advised to elevate legs to prevent dependent edema, compression has been recommended to help to naturally decrease peripheral edema. Diuretic use has been discussed and pt has been instructed in appropriate use of such medication as necessary to further attempt to reduce peripheral edema. lasix 20mg with kcl 10meq daily x 5 days Gait mqegialjesg-byieuvuq-SI of hips-chronic back pain-RX for wheelchair 09/08/2015 Visit Plan: Hypertension - well controlled - continue with current medications, continue with no added salt diet. Pt has been encouraged to exercise daily. The pt has been advised to call the office if there are any acute concerns about change in blood pressure readings at home. Edema - pt has been advised to elevate legs to prevent dependent edema, compression has been recommended to help to naturally decrease peripheral edema. Diuretic use has been discussed and pt has been instructed in appropriate use of such medication as necessary to further attempt to reduce peripheral edema. lasix 20mg with kcl 10meq daily x 5 days 09/08/2015 Appointment: [phone] [place] (30 min) Complex 09/08/2015 Patient Education: Patient Medication Summary Completed 09/08/2015 Visit Plan: Diabetes Mellitus - Uncontrolled - per recent FSBS reports. I have recommended for the patient to have follow up labs prior to the next office visit. The patient has been instructed to continue with current medications as previously directed, continue with regular FSBS monitoring to assure continued control of diabetes. Pt to call for any acute concerns, complaints, or if the blood glucose readings are starting to become less controlled. I have recommended for the patient to follow more strictly to the diabetic diet as discussed in clinic to allow for greater blood glucose control. Alzheimer's Dementia - Pt with slowly progressive pattern. I have discussed with pt and family the prognosis of this disease state and the need for the family to anticipate further decline with behavior changes. Continue with current plan of treatment. 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 The pt is to be on sinemet as directed, and medications to be adjusted as appropriate for alleviation of the impairment of ADL's. Pt or pt's family is to alert this office if symptoms worsen. RX for wheelchair to use as needed for generalized weakness Vitamin D deficiency-check level Chronic back pain- increase duragesic patch to 25mcg/hr patch 08/21/2015 Visit Plan: Diabetes Mellitus - Uncontrolled - per recent FSBS reports. I have recommended for the patient to have follow up labs prior to the next office visit. The patient has been instructed to continue with current medications as previously directed, continue with regular FSBS monitoring to assure continued control of diabetes. Pt to call for any acute concerns, complaints, or if the blood glucose readings are starting to become less controlled. I have recommended for the patient to follow more strictly to the diabetic diet as discussed in clinic to allow for greater blood glucose control. Alzheimer's Dementia - Pt with slowly progressive pattern. I have discussed with pt and family the prognosis of this disease state and the need for the family to anticipate further decline with behavior changes. Continue with current plan of treatment. 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 The pt is to be on sinemet as directed, and medications to be adjusted as appropriate for alleviation of the impairment of ADL's. Pt or pt's family is to alert this office if symptoms worsen. RX for wheelchair to use as needed for generalized weakness Vitamin D deficiency-check level Chronic back pain- increase duragesic patch to 25mcg/hr patch 08/21/2015 Patient Education: Patient Medication Summary Completed 08/21/2015 Patient Education: Hypertension Completed 08/21/2015 Care Plan: Referral Order SNOMED-CT : [id number] Ordered 02/19/2015 Visit Plan: Parkinson's Disease - pt has diagnosis of Parkinson's disease with movement disorder impinging upon daily activities. The pt is to be on sinemet as directed, and medications to be adjusted as appropriate for alleviation of the impairment of ADL's. Pt or pt's family is to alert this office if symptoms worsen. Start on mirapex - monitor symptoms. Will refer pt to [facility]. Hypertension - well controlled - continue with current medications, continue with no added salt diet. Pt has been encouraged to exercise daily. The pt has been advised to call the office if there are any acute concerns about change in blood pressure readings at home. Diabetes Mellitus - controlled - per recent FSBS reports. I have recommended for the patient to have follow up labs prior to the next office visit. The patient has been instructed to continue with current medications as previously directed, continue with regular FSBS monitoring to assure continued control of diabetes. Pt to call for any acute concerns, complaints, or if the blood glucose readings are starting to become less controlled. 02/16/2015 Appointment: Celestina Islas WPtel: [address] [place], [place] [id number] (15 min) Moderate 02/16/2015 Patient Education: Patient Medication Summary Completed 02/16/2015 Patient Education: Hypertension Completed 02/16/2015 Visit Plan: Hypertension - well controlled - continue with current medications, continue with no added salt diet. Pt has been encouraged to exercise daily. The pt has been advised to call the office if there are any acute concerns about change in blood pressure readings at home. 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 The pt is to be on sinemet as directed, and medications to be adjusted as appropriate for alleviation of the impairment of ADL's. Pt or pt's family is to alert this office if symptoms worsen. Dysuria- history of UTI-check UA 01/16/2015 Appointment: (30 min) Complex 01/16/2015 Patient Education: Patient Medication Summary Completed 01/16/2015 Patient Education: Hypertension Completed 01/16/2015 Appointment: Lab Draw 12/20/2014 Visit Plan: Urinary Tract Infection-discussed natural and expected course of this diagnosis and to alert me if symptoms do not follow expected course, or if any worse. UA positive for infection today in the office- plan to send for culture and will call patient with results. RX sent to patient' s pharmacy. Avoid tub baths, restrictive underwear, etc. Recommend patient start on probiotic while taking the antibiotic to prevent diarrhea. Patient verbalized understanding of plan. Diabetes Mellitus - I have recommended for the patient to have follow up labs prior to the next office visit. The patient has been instructed to continue with current medications as previously directed , continue with regular FSBS monitoring to assure continued control of diabetes. Pt to call for any acute concerns, complaints, or if the blood glucose readings are starting to become less controlled. Hypertension - well controlled - continue with current medications, continue with no added salt diet. Pt has been encouraged to exercise daily. The pt has been advised to call the office if there are any acute concerns about change in blood pressure readings at home. Edema - pt has been advised to elevate legs to prevent dependent edema, compression has been recommended to help to naturally decrease peripheral edema. Diuretic use has been discussed and pt has been instructed in appropriate use of such medication as necessary to further attempt to reduce peripheral edema. 12/09/2014 Appointment: (15 min) Moderate 12/09/2014 Patient Education: Patient Medication Summary Completed 12/09/2014 Patient Education: Hypertension Completed 12/09/2014 Care Plan: C URINE RT Pending 12/09/2014 Care Plan: COMPLETE CBC AUTOMATED LOINC : 17171-2 Ordered 12/09/2014 Visit Plan: Hypertension - well controlled - continue with current medications, continue with no added salt diet. Pt has been encouraged to exercise daily. The pt has been advised to call the office if there are any acute concerns about change in blood pressure readings at home. Parkinson's symptoms - uncontrolled - plan to change sinemet cr 50/200 mg bid. Diabetes Mellitus - Uncontrolled - per recent FSBS reports. I have recommended for the patient to have follow up labs prior to the next office visit. The patient has been instructed to continue with current medications as previously directed, continue with regular FSBS monitoring to assure continued control of diabetes. Pt to call for any acute concerns, complaints, or if the blood glucose readings are starting to become less controlled. I have recommended for the patient to follow more strictly to the diabetic diet as discussed in clinic to allow for greater blood glucose control. 09/28/2014 Appointment: Celestina Islas WPtel: [phone] [id number] Follow up 09/28/2014 Patient Education: Patient Medication Summary Completed 09/28/2014 Patient Education: Hypertension Completed 09/28/2014 Visit Plan: ADMIT FROM CLINIC TO HOSPITAL - PT IS ACUTELY ILL, REQUIRES HOSPITALIZATION. THE PATIENT HAS BEEN EVALUATED IN CLINIC AND THIS STANDS THE HOSPITAL HISTORY AND PHYSICAL EXAMINATION. THE PATIENT HAS BEEN SENT TO THE HOSPITAL WITH WRITTEN ORDERS FOR TREATMENT AND EVALUATION OF THE ACUTE ILLNESS. treat cellulitis, wound consult to dr. 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 dm - resume home medications htn - resume home medications. 07/19/2014 Appointment: Celestina Islas WPtel: [phone] [id number] [facility] 07/19/2014 Patient Education: Patient Medication Summary Completed 07/19/2014 Patient Education: Hypertension Completed 07/19/2014 Visit Plan: Diabetes Mellitus - controlled - per recent FSBS reports. I have recommended for the patient to have follow up labs prior to the next office visit. The patient has been instructed to continue with current medications as previously directed, continue with regular FSBS monitoring to assure continued control of diabetes. Pt to call for any acute concerns, complaints, or if the blood glucose readings are starting to become less controlled. Edema - continue with current treatment - elevate lower legs - decrease sodium in diet. Pt with wound on left elbow - steri stips applied Wound on anterior left lower leg - pt to start with wound care at the hospital - currently to be on wet-to dry dressings bid - office will call with appointment. Back pain - pt to start neurontin 100mg daily x 1 week, 100mg bid x 1 week, then tid x 1 week. - If family feels like the patient does well without confusion and weakness x 3 days, then if they call on Friday morning, to report this - we can increase to bid on Friday and then keep on bid treatment x 1 week then increase to tid. Parkinson's disease - stable -per patient report. 07/12/2014 Appointment: Celestina Islas WPtel: [phone] [id number] Follow up 07/12/2014 Patient Education: Patient Medication Summary Completed 07/12/2014 Visit Plan: Edema - pt has been advised to elevate legs to prevent dependent edema, compression has been recommended to help to naturally decrease peripheral edema. Diuretic use has been discussed and pt has been instructed in appropriate use of such medication as necessary to further attempt to reduce peripheral edema. 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 The pt is to be on sinemet as directed, and medications to be adjusted as appropriate for alleviation of the impairment of ADL's. Pt or pt's family is to alert this office if symptoms worsen. Pt has OA and weakness of upper extremities - and lower extremities - pt was unable to stand on own out of chair in waiting room - pt was unable to ambulate without cane, and had a wide stance that was unsteady when ambulating. Pt needs to continue with physical therapy as well as pt needs a lift chair. 05/03/2014 Appointment: Celestina Islas WPtel: [phone] [id number] Follow up 05/03/2014 Patient Education: Patient Medication Summary Completed 05/03/2014 Visit Plan: Diabetes Mellitus - Uncontrolled - per recent FSBS reports. I have recommended for the patient to have follow up labs prior to the next office visit. The patient has been instructed to continue with current medications as previously directed, continue with regular FSBS monitoring to assure continued control of diabetes. Pt to call for any acute concerns, complaints, or if the blood glucose readings are starting to become less controlled. I have recommended for the patient to follow more strictly to the diabetic diet as discussed in clinic to allow for greater blood glucose control. Hypertension - well controlled - continue with current medications, continue with no added salt diet. Pt has been encouraged to exercise daily. The pt has been advised to call the office if there are any acute concerns about change in blood pressure readings at home. Edema - pt has been advised to elevate legs to prevent dependent edema, compression has been recommended to help to naturally decrease peripheral edema. Diuretic use has been discussed and pt has been instructed in appropriate use of such medication as necessary to further attempt to reduce peripheral edema. 03/31/2014 Appointment: Celestina Islas WPtel: [phone] [id number] Follow up 03/31/2014 Patient Education: Patient Medication Summary Completed 03/31/2014 Patient Education: Hypertension Completed 03/31/2014 Visit Plan: stop simvastatin stop hctz decrease actos to 1/ 2 pill daily we will check an echocardiogram (ultrasound of the heart) we will check an MRI of the brain we will check thyroid, vitamin b12, folate, chemistry , complete blood count, rpr, and iron studies, bnp chest xray 2 grams of sodium daily take an extra lasix Friday, Friday, and friday of this week take an extra dose of the potassium friday, friday and friday03/18/2014 Appointment: Celestina Islas WPtel: [phone] [id number] New Patient 03/18/2014 Patient Education: Patient Medication Summary Completed 03/18/2014 Patient Education: Hypertension Completed 03/18/2014 Referral: External, Ordering Provider Referral Appointment Requested Instructions Comment start on GABAPENTIN - (neurontin) - one pill at bedtime x 1week, then increase to 1 pill twice daily x1week, then 1pill three times daily thereafter wet to dry dressing on lower leg - change twice daily. dr will call wound care for an appt lab today - steri strips on the elbow -okay to expose to air after today . Diabetes Mellitus - controlled - per recent FSBS reports. I have recommended for the patient to have follow up labs prior to the next office visit. The patient has been instructed to continue with current medications as previously directed, continue with regular FSBS monitoring to assure continued control of diabetes. Pt to call for any acute concerns, complaints, or if the blood glucose readings are starting to become less controlled. Edema - continue with current treatment - elevate lower legs - decrease sodium in diet. Pt with wound on left elbow - steri stips applied Wound on anterior left lower leg - pt to start with wound care at the hospital - currently to be on wet-to dry dressings bid - office will call with appointment. Back pain - pt to start neurontin 100mg daily x 1 week, 100mg bid x 1 week, then tid x 1 week. - If family feels like the patient does well without confusion and weakness x 3 days, then if they call on Friday morning, to report this - we can increase to bid on Friday and then keep on bid treatment x 1 week then increase to tid. Parkinson's disease - stable -per patient report. . Diabetes Mellitus - Uncontrolled - per recent FSBS reports. I have recommended for the patient to have follow up labs prior to the next office visit. The patient has been instructed to continue with current medications as previously directed, continue with regular FSBS monitoring to assure continued control of diabetes. Pt to call for any acute concerns, complaints, or if the blood glucose readings are starting to become less controlled. I have recommended for the patient to follow more strictly to the diabetic diet as discussed in clinic to allow for greater blood glucose control. Hypertension - well controlled - continue with current medications, continue with no added salt diet. Pt has been encouraged to exercise daily. The pt has been advised to call the office if there are any acute concerns about change in blood pressure readings at home. Edema - pt has been advised to elevate legs to prevent dependent edema, compression has been recommended to help to naturally decrease peripheral edema. Diuretic use has been discussed and pt has been instructed in appropriate use of such medication as necessary to further attempt to reduce peripheral edema. CHECK UA WITH C&S IF INDICATED . Hypertension - well controlled - continue with current medications, continue with no added salt diet. Pt has been encouraged to exercise daily. The pt has been advised to call the office if there are any acute concerns about change in blood pressure readings at home. 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 The pt is to be on sinemet as directed, and medications to be adjusted as appropriate for alleviation of the impairment of ADL's. Pt or pt's family is to alert this office if symptoms worsen. Dysuria-history of UTI-check UA . Diabetes Mellitus - controlled - per recent FSBS reports. I have recommended for the patient to have follow up labs prior to the next office visit. The patient has been instructed to continue with current medications as previously directed, continue with regular FSBS monitoring to assure continued control of diabetes. Pt to call for any acute concerns, complaints, or if the blood glucose readings are starting to become less controlled. Hypertension - well controlled - continue with current medications, continue with no added salt diet. Pt has been encouraged to exercise daily. The pt has been advised to call the office if there are any acute concerns about change in blood pressure readings at home. Edema - monitor symptoms - continue with lasix. . Left hip pain-recent fall-ER f/u-pain improving-no changes in treatment at this time. . continue orders - notify clinic if symptoms do not improve or with any concerns. . Hypertension - well controlled - continue with current medications, continue with no added salt diet. Pt has been encouraged to exercise daily. The pt has been advised to call the office if there are any acute concerns about change in blood pressure readings at home. Parkinson's symptoms - uncontrolled - plan to change sinemet cr 50/200 mg bid. Diabetes Mellitus - Uncontrolled - per recent FSBS reports. I have recommended for the patient to have follow up labs prior to the next office visit. The patient has been instructed to continue with current medications as previously directed, continue with regular FSBS monitoring to assure continued control of diabetes. Pt to call for any acute concerns, complaints, or if the blood glucose readings are starting to become less controlled. I have recommended for the patient to follow more strictly to the diabetic diet as discussed in clinic to allow for greater blood glucose control. . Hypertension - well controlled - continue with current medications, continue with no added salt diet. Pt has been encouraged to exercise daily. The pt has been advised to call the office if there are any acute concerns about change in blood pressure readings at home. Edema - pt has been advised to elevate legs to prevent dependent edema, compression has been recommended to help to naturally decrease peripheral edema. Diuretic use has been discussed and pt has been instructed in appropriate use of such medication as necessary to further attempt to reduce peripheral edema. lasix 20mg with kcl 10meq daily x 5 days Gait ubkybcnmzyc-nkmfcspt-XF of hips-chronic back pain-RX for wheelchair . Hypertension - well controlled - continue with current medications, continue with no added salt diet. Pt has been encouraged to exercise daily. The pt has been advised to call the office if there are any acute concerns about change in blood pressure readings at home. Edema - pt has been advised to elevate legs to prevent dependent edema, compression has been recommended to help to naturally decrease peripheral edema. Diuretic use has been discussed and pt has been instructed in appropriate use of such medication as necessary to further attempt to reduce peripheral edema. lasix 20mg with kcl 10meq daily x 5 days 2 grams or less of sodium - this will help with weight loss. start on Sinemet (Caribidopa/Levodopa) . Edema - pt has been advised to elevate legs to prevent dependent edema, compression has been recommended to help to naturally decrease peripheral edema. Diuretic use has been discussed and pt has been instructed in appropriate use of such medication as necessary to further attempt to reduce peripheral edema. 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 The pt is to be on sinemet as directed, and medications to be adjusted as appropriate for alleviation of the impairment of ADL's. Pt or pt's family is to alert this office if symptoms worsen. Pt has OA and weakness of upper extremities - and lower extremities - pt was unable to stand on own out of chair in waiting room - pt was unable to ambulate without cane, and had a wide stance that was unsteady when ambulating. Pt needs to continue with physical therapy as well as pt needs a lift chair. . Left flank pain/UTI - pt with positive urinalysis - culture sent if appropriate. Antibiotic electronically prescribed to pt's pharmacy of choice. Pt to call if symptoms do not improve. Wheelchair DX weakness, gait instability Increase duragesic to 25mcg Increase lantus to 25 units . Diabetes Mellitus - Uncontrolled - per recent FSBS reports. I have recommended for the patient to have follow up labs prior to the next office visit. The patient has been instructed to continue with current medications as previously directed, continue with regular FSBS monitoring to assure continued control of diabetes. Pt to call for any acute concerns, complaints, or if the blood glucose readings are starting to become less controlled. I have recommended for the patient to follow more strictly to the diabetic diet as discussed in clinic to allow for greater blood glucose control. Alzheimer's Dementia - Pt with slowly progressive pattern. I have discussed with pt and family the prognosis of this disease state and the need for the family to anticipate further decline with behavior changes. Continue with current plan of treatment. 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 The pt is to be on sinemet as directed, and medications to be adjusted as appropriate for alleviation of the impairment of ADL's. Pt or pt's family is to alert this office if symptoms worsen. RX for wheelchair to use as needed for generalized weakness Vitamin D deficiency-check level Chronic back pain-increase duragesic patch to 25mcg/hr patch Wheelchair DX weakness, gait instability Increase duragesic to 25mcg Increase lantus to 25 units . Diabetes Mellitus - Uncontrolled - per recent FSBS reports. I have recommended for the patient to have follow up labs prior to the next office visit. The patient has been instructed to continue with current medications as previously directed, continue with regular FSBS monitoring to assure continued control of diabetes. Pt to call for any acute concerns, complaints, or if the blood glucose readings are starting to become less controlled. I have recommended for the patient to follow more strictly to the diabetic diet as discussed in clinic to allow for greater blood glucose control. Alzheimer's Dementia - Pt with slowly progressive pattern. I have discussed with pt and family the prognosis of this disease state and the need for the family to anticipate further decline with behavior changes. Continue with current plan of treatment. 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 The pt is to be on sinemet as directed, and medications to be adjusted as appropriate for alleviation of the impairment of ADL's. Pt or pt's family is to alert this office if symptoms worsen. RX for wheelchair to use as needed for generalized weakness Vitamin D deficiency-check level Chronic back pain-increase duragesic patch to 25mcg/hr patch . Diabetes Mellitus - controlled - per recent FSBS reports. I have recommended for the patient to have follow up labs prior to the next office visit. The patient has been instructed to continue with current medications as previously directed, continue with regular FSBS monitoring to assure continued control of diabetes. Pt to call for any acute concerns, complaints, or if the blood glucose readings are starting to become less controlled. Hypertension - well controlled - continue with current medications, continue with no added salt diet. Pt has been encouraged to exercise daily. The pt has been advised to call the office if there are any acute concerns about change in blood pressure readings at home. Hip pain/OA - continue with prn hydrocodone . ADMIT FROM CLINIC TO HOSPITAL - PT IS ACUTELY ILL, REQUIRES HOSPITALIZATION. THE PATIENT HAS BEEN EVALUATED IN CLINIC AND THIS STANDS THE HOSPITAL HISTORY AND PHYSICAL EXAMINATION. THE PATIENT HAS BEEN SENT TO THE HOSPITAL WITH WRITTEN ORDERS FOR TREATMENT AND EVALUATION OF THE ACUTE ILLNESS. treat cellulitis, wound consult to dr. 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 dm - resume home medications htn - resume home medications. . Edema - pt has been advised to elevate legs to prevent dependent edema, compression has been recommended to help to naturally decrease peripheral edema. Diuretic use has been discussed and pt has been instructed in appropriate use of such medication as necessary to further attempt to reduce peripheral edema. Urinary urgency and frequency - will check UA and treat as indicated - will DC myrbetric and start on Vesicare - pt is to notify clinic if symptoms do not improve, if they worsen, or with any changes, questions, or concerns. BACTRIM DS 1 PO BID X 7 DAYS -CULTURE URINE CHECK LABS -WILL CONSIDER A FEW DAYS OF LASIX IF LABS ALLOW CALL IF SWELING WORSENS . Urinary Tract Infection-discussed natural and expected course of this diagnosis and to alert me if symptoms do not follow expected course, or if any worse. UA positive for infection today in the office-plan to send for culture and will call patient with results. RX sent to patient's pharmacy. Avoid tub baths, restrictive underwear, etc. Recommend patient start on probiotic while taking the antibiotic to prevent diarrhea. Patient verbalized understanding of plan. Diabetes Mellitus - I have recommended for the patient to have follow up labs prior to the next office visit. The patient has been instructed to continue with current medications as previously directed, continue with regular FSBS monitoring to assure continued control of diabetes. Pt to call for any acute concerns, complaints, or if the blood glucose readings are starting to become less controlled. Hypertension - well controlled - continue with current medications, continue with no added salt diet. Pt has been encouraged to exercise daily. The pt has been advised to call the office if there are any acute concerns about change in blood pressure readings at home. Edema - pt has been advised to elevate legs to prevent dependent edema, compression has been recommended to help to naturally decrease peripheral edema. Diuretic use has been discussed and pt has been instructed in appropriate use of such medication as necessary to further attempt to reduce peripheral edema. . Diabetes Mellitus - controlled - per recent FSBS reports. I have recommended for the patient to have follow up labs prior to the next office visit. The patient has been instructed to continue with current medications as previously directed, continue with regular FSBS monitoring to assure continued control of diabetes. Pt to call for any acute concerns, complaints, or if the blood glucose readings are starting to become less controlled. Hypertension - well controlled - continue with current medications, continue with no added salt diet. Pt has been encouraged to exercise daily. The pt has been advised to call the office if there are any acute concerns about change in blood pressure readings at home. Check UA Parkinsons disease - stable on current medications - no change in treatment. start on mirapex 0.25mg by mouth at bedtime to help with parkinson's disease symptoms. . 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 The pt is to be on sinemet as directed, and medications to be adjusted as appropriate for alleviation of the impairment of ADL's. Pt or pt's family is to alert this office if symptoms worsen. Start on mirapex - monitor symptoms. Will refer pt to [facility]. Hypertension - well controlled - continue with current medications, continue with no added salt diet. Pt has been encouraged to exercise daily. The pt has been advised to call the office if there are any acute concerns about change in blood pressure readings at home. Diabetes Mellitus - controlled - per recent FSBS reports. I have recommended for the patient to have follow up labs prior to the next office visit. The patient has been instructed to continue with current medications as previously directed, continue with regular FSBS monitoring to assure continued control of diabetes. Pt to call for any acute concerns, complaints, or if the blood glucose readings are starting to become less controlled. . Low back pain- the patient was instructed in appropriate posture, need for weight loss to alleviate abdominal obesity that is worsening the patient's back pain.. The pt is to use prn antiinflammatories to manage acute pain. The patient is to call the office if the pain is worsening or does not improve. Edema - pt has been advised to elevate legs to prevent dependent edema, compression has been recommended to help to naturally decrease peripheral edema. Diuretic use has been discussed and pt has been instructed in appropriate use of such medication as necessary to further attempt to reduce peripheral edema. irritation in bilateral popliteal regions - Pt was instructed to keep the wound clean, wash with antibacterial soap, use triple antibiotic ointment, call if redness, pustular drainage, or any other acute concerns. . Low back pain- the patient was instructed in appropriate posture, need for weight loss to alleviate abdominal obesity that is worsening the patient's back pain.. The pt is to use prn antiinflammatories to manage acute pain. The patient is to call the office if the pain is worsening or does not improve. Right toe pain/erythema - gout vs Cellulitis - will check uric acid level - continue with oral antibiotics as previously directed, return to clinic as previously directed, call for acute change in symptoms, worsening redness, warmth, discharge. Edema - pt has been advised to elevate legs to prevent dependent edema, compression has been recommended to help to naturally decrease peripheral edema. Diuretic use has been discussed and pt has been instructed in appropriate use of such medication as necessary to further attempt to reduce peripheral edema. stop simvastatin stop hctz decrease actos to 1/2 pill daily we will check an echocardiogram (ultrasound of the heart) we will check an MRI of the brain we will check thyroid, vitamin b12, folate, chemistry, complete blood count, rpr , and iron studies, bnp chest xray 2 grams of sodium daily take an extra lasix Friday, Friday, and friday of this week take an extra dose of the potassium friday, friday and friday . stop simvastatin stop hctz decrease actos to 1/2 pill daily we will check an echocardiogram (ultrasound of the heart) we will check an MRI of the brain we will check thyroid, vitamin b12, folate, chemistry, complete blood count, rpr , and iron studies, bnp chest xray 2 grams of sodium daily take an extra lasix Friday, Friday, and friday of this week take an extra dose of the potassium friday, friday and friday . Hypertension - well controlled - continue with current medications, continue with no added salt diet. Pt has been encouraged to exercise daily. The pt has been advised to call the office if there are any acute concerns about change in blood pressure readings at home. Diabetes Mellitus - controlled - per recent FSBS reports. I have recommended for the patient to have follow up labs prior to the next office visit. The patient has been instructed to continue with current medications as previously directed, continue with regular FSBS monitoring to assure continued control of diabetes. Pt to call for any acute concerns, complaints, or if the blood glucose readings are starting to become less controlled. Chronic Pain Syndrome - pt has chronic pain - has been maintained on current medications, has not sought out other medications, only uses PRN pain medications as directed, and understands the consequences of over-medication. . Edema - pt has been advised to elevate legs to prevent dependent edema, compression has been recommended to help to naturally decrease peripheral edema. Diuretic use has been discussed and pt has been instructed in appropriate use of such medication as necessary to further attempt to reduce peripheral edema.
--- OUTSIDE RECORDS SUMMARY | 2017-07-29 19:25 | XMS REPORT | CCD ---
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 Name Role Phone PP Unavailable CCM Unavailable Summary Purpose Interface Exchange Insurance Providers Payer name Policy type / Coverage type Covered republican ID Effective Begin Date Effective End Date WPS Medicare Part B Medicare Part B [id number] Unknown Unknown FOR LIFE WPS Medicare Part B [id number] Unknown Unknown Family history Mother Diagnosis Age At Onset No Family Disease Entered N/A Social History Social History Element Codes Description Effective Dates Living arrangements Unknown Assisted Living [facility]CV 11/08/2015 Education level Unknown College Graduate 10/12/2015 Marital status Unknown 03/18/2014 Number of children Unknown 5 03/18/[address]: 207603150 Never smoker 03/18/[address]: 985801929 Never drinks alcohol 03/18/2014 Allergies, Adverse Reactions, [...] Start Date Stop Date Status Fill Instructions senna 8.6 mg tablet RxNorm: 430596 Tablet(s) TAKE 2 TABLETS BY MOUTH DAILY 05/26/2017 12/21/2017 Active Generic For:SENOKOT TABLET 10/03/2016 9:56:42 AM 10/03 9:56:41 AM Ocuvite with Lutein 1,000 unit-200 mg-60 unit-2mg tablet RxNorm: 1 Tablet(s) PO daily 05/26/2017 12/21/2017 Active Duragesic 12 mcg/hr transdermal patch RxNorm: 944102 1 Patch TD Q72H 05/23/2017 06/21/2017 Active Aleve 220 mg tablet RxNorm: 782400 Tablet(s) TAKE ONE TABLET BY MOUTH TWICE DAILY 05/12/2017 09/08/2017 Active 05/13/2016 8:39:57 AM Lantus 100 unit/mL subcutaneous solution RxNorm: 961931 INJECT 30 UNITS SUBCUTANEOUSLY DAILY 05/05/20172018 Active 05/05/2017 11:15:06 AM Augmentin 500 mg-125 mg tablet RxNorm: 803388 1 Tablet(s) PO TID 05/02/2017 05/01/2017 Inactive Augmentin 500 mg-125 mg tablet RxNorm: 212390 1 Tablet(s) PO TID 05/02/2017 05/08/2017 Inactive Vesicare 5 mg tablet RxNorm: 732604 1 Tablet(s) PO daily 201608/21/2017 Active gabapentin 100 mg capsule RxNorm: 729403 TAKE 1 CAPSULE BY MOUTH DAILY 04/24/2017 10/20/2017 Active Generic For:NEURONTIN 100 MG CAPSULE 04/24/2017 12:21:48 PM Duragesic 25 mcg/hr transdermal patch RxNorm: 965177 1 Patch TD Q72H 04/22/2017 05/21/2017 Inactive Duragesic 12 mcg/hr transdermal patch RxNorm: 342380 1 Patch TD Q72H 04/22/2017 05/21/2017 Inactive capsaicin 0.025 % topical cream RxNorm: 721252 APPLY TOPICALLY FOUR TIMES DAILY 04/10/2017 07/26/2017 Active 04/10/2017 11:05:24 AM N O T I C E Last quantity doesn't match original quantity Duragesic 12 mcg/hr transdermal patch RxNorm: 520340 1 Patch TD Q72H 03/24/2017 04/21/2017 Inactive Duragesic 25 mcg/hr transdermal patch RxNorm: 949418 1 Patch TD Q72H 03/24/2017 04/21/2017 Inactive Duragesic 12 mcg/hr transdermal patch RxNorm: 940744 1 Patch TD Q72H 02/20/2017 03/21/2017 Inactive Voltaren 1 % topical gel RxNorm: 680090 APPLY 4 GRAMS TO LOWER BACK/HIPS FOUR TIMES DAILY 02/13/2017 03/26/2017 Inactive Generic For:VOLTAREN GEL 1% 02/12/2017 9:20:40 AM Vesicare 5 mg tablet RxNorm: 836807 1 Tablet(s) PO daily 201605/04/2017 Inactive Vesicare 5 mg tablet RxNorm: 419687 1 Tablet(s) PO daily 201602/04/2017 Inactive Cozaar 50 mg tablet RxNorm: 363382 TAKE 1 TABLET BY MOUTH DAILY 01/31/2017 07/29/2017 Active Generic For:*COZAAR 50 MG TABLET 01/30/2017 3:58:13 PM Namenda 10 mg tablet RxNorm: 154757 TAKE 1 TABLET BY MOUTH TWICE DAILY 01/31/2017 06/29/2017 Active Generic For:NAMENDA 10MG TAB 01/30/2017 3:57:01 PM gabapentin 300 mg capsule RxNorm: 899989 TAKE 1 CAPSULE(S) BY MOUTH TWICE DAILY 01/31/2017 06/29/2017 Active Generic For:NEURONTIN 300 MG CAPSULE 01/30/2017 3:59: 00 PM trazodone 50 mg tablet RxNorm: 184227 TAKE 1 TABLET BY MOUTH DAILY 01/31/2017 07/29/2017 Active Generic For:DESYREL 50 MG TABLET 01/30/2017 3:57:33 PM Duragesic 12 mcg/hr transdermal patch RxNorm: 692017 1 Patch TD Q72H 01/23/2017 02/19/2017 Inactive Duragesic 25 mcg/hr transdermal patch RxNorm: 275864 1 Patch TD Q72H 01/21/2017 02/19/2017 Inactive Keflex 500 mg capsule RxNorm: 682485 1 Capsule(s) PO TID 201601/09/2017 Inactive Keflex 500 mg capsule RxNorm: 032861 1 Capsule(s) PO TID 201601/19/2017 Inactive Duragesic 12 mcg/hr transdermal patch RxNorm: 898247 1 Patch TD Q72H 12/27/2016 01/22/2017 Inactive Duragesic 25 mcg/hr transdermal patch RxNorm: 787827 1 Patch TD Q72H 12/03/2016 01/01/2017 Inactive Duragesic 12 mcg/hr transdermal patch RxNorm: 629312 1 Patch TD Q72H 11/21/2016 12/20/2016 Inactive Voltaren 1 % topical gel RxNorm: 265426 APPLY 4 GRAMS TO LOWER BACK/HIPS FOUR TIMES DAILY 11/14/2016 12/25/2016 Inactive Generic For:VOLTAREN GEL 1% 11/14/2016 11:44:09 AM capsaicin 0.025 % topical cream RxNorm: 866498 1 Application TOP QID 11/11/2016 04/09/2017 Inactive Lantus 100 unit/mL subcutaneous solution RxNorm: 538974 30 Unit(s) SQ daily 11/11/2016 05/04/2017 Inactive Ocuvite with Lutein 1,000 unit-200 mg-60 unit-2mg tablet RxNorm: 1 Tablet(s) PO daily 11/08/2016 05/25/2017 Inactive gabapentin 100 mg capsule RxNorm: 944982 TAKE 1 CAPSULE BY MOUTH DAILY 11/08/2016 04/23/2017 Inactive Generic For:NEURONTIN 100 MG CAPSULE 11/08/2016 9:16:54 AM N O T I C E Last quantity doesn't match original quantity Duragesic 25 mcg/hr transdermal patch RxNorm: 157709 1 Patch TD Q72H 11/04/2016 12/02/2016 Inactive Duragesic 12 mcg/hr transdermal patch RxNorm: 206629 1 Patch TD Q72H 10/21/2016 11/19/2016 Inactive Duragesic 25 mcg/hr transdermal patch RxNorm: 789438 1 Patch TD Q72H 10/10/2016 11/03/2016 Inactive senna 8.6 mg tablet RxNorm: 044905 Tablet(s) TAKE 2 TABLETS BY MOUTH DAILY 10/08/2016 05/05/2017 Inactive Generic For:SENOKOT TABLET 10/03/2016 9:56:42 AM 9:56:41 AM senna 8.6 mg tablet RxNorm: 958826 TAKE 2 TABLETS BY MOUTH DAILY 10/03/2016 10/07/2016 Inactive Generic For:SENOKOT TABLET 10/03/2016 9:56:42 AM 10/03/2016 9:56: 41 AM Duragesic 12 mcg/hr transdermal patch RxNorm: 699916 1 Patch TD Q72H 09/25/2016 10/20/2016 Inactive mecobalamin (vitamin B12) 5,000 mcg disintegrating tablet RxNorm: 2107888 1 Tablet (s) PO daily 09/13/2016 08/08/2017 Active gabapentin 300 mg capsule RxNorm: 262397 1 Capsule(s) PO BID 01/30/2017 Inactive Namenda 10 mg tablet RxNorm: 824979 TAKE 1 TABLET BY MOUTH TWICE DAILY 09/13/2016 01/30/2017 Inactive Generic For:NAMENDA 10MG TAB 09/13/2016 2:21:26 PM N O T I C E Last quantity doesn't match original quantity trazodone 50 mg tablet RxNorm: 726241 TAKE 1 TABLET BY MOUTH DAILY 09/13/2016 01/30/2017 Inactive Generic For:DESYREL 50 MG TABLET 09/13/2016 2:21:21 PM N O T I C E Last quantity doesn't match original quantity Cozaar 50 mg tablet RxNorm: 211366 TAKE 1 TABLET BY MOUTH DAILY 09/13/2016 01/30/2017 Inactive Generic For:*COZAAR 50 MG TABLET 09/13/2016 2:21:15 PM N O T I C E Last quantity doesn't match original quantity Duragesic 25 mcg/hr transdermal patch RxNorm: 878461 1 Patch TD Q72H 09/09/2016 10/08/2016 Inactive Voltaren 1 % topical gel RxNorm: 471644 4 Gram(s) TOP to lower back/hips QID 09/02/2016 11/13/2016 Inactive Duragesic 12 mcg/hr transdermal patch RxNorm: 075789 1 Patch TD Q72H 08/21/2016 09/19/2016 Inactive Myrbetriq 50 mg tablet,extended release RxNorm: 8544329 TAKE 1 TABLET BY MOUTH DAILY 08/15/2016 03/12/2017 Inactive 08/15/2016 1:38:02 PM N O T I C E Last quantity doesn't match original quantity gabapentin 100 mg capsule RxNorm: 298563 TAKE 1 CAPSULE BY MOUTH DAILY 08/15/2016 11/07/2016 Inactive Generic For:NEURONTIN 100 MG CAPSULE 08/15/2016 1:37:55 PM N O T I C E Last quantity doesn't match original quantity hydrocodone 5 mg-acetaminophen 325 mg tablet RxNorm: 404589 1 Tablet(s) PO Q4H as needed 08/08/2016 09/06/2016 Inactive Keflex 500 mg capsule RxNorm: 707768 1 Capsule(s) PO TID 201608/04/2016 Inactive Duragesic 12 mcg/hr transdermal patch RxNorm: 197221 1 Patch TD Q72H 07/24/2016 08/20/2016 Inactive Mirapex 1 mg tablet RxNorm: 266030 TAKE 1 TABLET BY MOUTH THREE TIMES DAILY 07/17/2016 10/14/2016 Inactive Generic For:MIRAPEX 1MG TAB BOE 07/17/2016 10:01: 58 AM carbidopa 25 mg-levodopa 100 mg tablet RxNorm: 218077 TAKE 2 TABLETS BY MOUTH FOUR TIMES DAILY 07/17/2016 10/14/2016 Inactive Generic For:SINEMET-25/100 TABLET 07/17/2016 10:02:12 AM Duragesic 25 mcg/hr transdermal patch RxNorm: 100581 1 Patch TD q72 hours 07/15/2016 08/13/2016 Inactive Voltaren 1 % topical gel RxNorm: 479847 4 Gram(s) TOP to lower back/hips QID 07/11/2016 09/01/2016 Inactive capsaicin 0.025 % topical cream RxNorm: 490022 1 Application TOP QID 07/05/2016 11/10/2016 Inactive Refresh Tears 0.5 % eye drops RxNorm: 2794956 1 Drop(s) OPH daily as needed for dry eyes 06/28/2016 No Stop Date Active Duragesic 12 mcg/hr transdermal patch RxNorm: 592256 1 TD q72 hours 06/27/2016 07/23/2016 Inactive Vitamin D2 50,000 unit capsule RxNorm: 138305 TAKE 1 CAPSULE BY MOUTH WEEKLY 06/21/2016 07/18/2016 Inactive Generic For:DRISDOL 05734 UNITS CAP 06/18/2016 4:31: 30 PM Mirapex 1 mg tablet RxNorm: 996137 TAKE 1 TABLET BY MOUTH THREE TIMES DAILY 06/19/2016 07/16/2016 Inactive Generic For:MIRAPEX 1MG TAB [facility] 06/18/2016 4:32: 01 PM N O T I C E Last quantity doesn't match original quantity Cozaar 50 mg tablet RxNorm: 414798 TAKE 1 TABLET BY MOUTH DAILY 06/19/2016 09/12/2016 Inactive Generic For:*COZAAR 50 MG TABLET N O T I C E Last quantity doesn't match original quantity carbidopa 25 mg-levodopa 100 mg tablet RxNorm: 207815 TAKE 2 TABLETS BY MOUTH FOUR TIMES DAILY 06/19/2016 07/16/2016 Inactive Generic For:SINEMET-25/100 TABLET N O T I C E Last quantity doesn't match original quantity Namenda 10 mg tablet RxNorm: 652445 TAKE 1 TABLET BY MOUTH TWICE DAILY 06/19/2016 09/12/2016 Inactive Generic For:NAMENDA 10MG TAB 06/18/2016 4:32:09 PM N O T I C E Last quantity doesn't match original quantity trazodone 50 mg tablet RxNorm: 305932 TAKE 1 TABLET BY MOUTH DAILY 06/19/2016 09/12/2016 Inactive Generic For:DESYREL 50 MG TABLET N O T I C E Last quantity doesn't match original quantity Duragesic 25 mcg/hr transdermal patch RxNorm: 230048 1 Patch TD q72 hours 06/12/2016 07/11/2016 Inactive Aleve 220 mg tablet RxNorm: 532631 Tablet(s) TAKE ONE TABLET BY MOUTH TWICE DAILY 05/27/2016 09/23/2016 Inactive 05/13/2016 8:39:57 AM Duragesic 12 mcg/hr transdermal patch RxNorm: 509382 1 TD q72 hours 05/27/2016 06/25/2016 Inactive gabapentin 300 mg capsule RxNorm: 665235 1 Capsule(s) PO BID 05/23/2016 Inactive Lantus 100 unit/mL subcutaneous solution RxNorm: 317223 30 Unit(s) SQ daily 05/24/2016 05/23/2016 Inactive gabapentin 300 mg capsule RxNorm: 816007 1 Capsule(s) PO BID 09/12/2016 Inactive Lantus 100 unit/mL subcutaneous solution RxNorm: 001613 30 Unit(s) SQ daily 05/24/2016 11/10/2016 Inactive carbidopa 25 mg-levodopa 100 mg tablet RxNorm: 469379 TAKE 2 TABLETS BY MOUTH FOUR TIMES DAILY 05/22/2016 06/18/2016 Inactive Generic For:SINEMET-25/100 TABLET 05/22/2016 9:39:54 AM Namenda 10 mg tablet RxNorm: 869322 TAKE 1 TABLET BY MOUTH TWICE DAILY 05/22/2016 06/18/2016 Inactive Generic For:NAMENDA 10MG TAB 05/22/2016 9:39:26 AM mecobalamin (vitamin B12) 5,000 mcg disintegrating tablet RxNorm: 8472381 1 Tablet (s) PO daily 05/22/2016 09/12/2016 Inactive Cozaar 50 mg tablet RxNorm: 664591 TAKE 1 TABLET BY MOUTH DAILY 05/22/2016 06/18/2016 Inactive Generic For:*COZAAR 50 MG TABLET 05/22/2016 9:39:36 AM Mirapex 1 mg tablet RxNorm: 230452 TAKE 1 TABLET BY MOUTH THREE TIMES DAILY 05/22/2016 06/18/2016 Inactive Generic For:MIRAPEX 1MG TAB BOEH 05/22/2016 9:39: 17 AM trazodone 50 mg tablet RxNorm: 375201 TAKE 1 TABLET BY MOUTH DAILY 05/22/2016 06/18/2016 Inactive Generic For:DESYREL 50 MG TABLET 05/22/2016 9:39:07 AM Ocuvite with Lutein 1,000 unit-200 mg-60 unit-2mg tablet RxNorm: 1 Tablet(s) PO daily 05/21/2016 05/20/2016 Inactive gabapentin 100 mg capsule RxNorm: 415967 TAKE 1 CAPSULE BY MOUTH DAILY 05/21/2016 08/14/2016 Inactive Generic For:NEURONTIN 100 MG CAPSULE 05/21/2016 2:57:16 PM Myrbetriq 50 mg tablet,extended release RxNorm: 2748020 TAKE 1 TABLET BY MOUTH DAILY 05/21/2016 08/15/2016 Inactive 05/21/2016 2:59:11 PM Ocuvite with Lutein 1,000 unit-200 mg-60 unit-2mg tablet RxNorm: 1 Tablet(s) PO daily 05/21/2016 11/07/2016 Inactive Aleve 220 mg tablet RxNorm: 732372 TAKE ONE TABLET BY MOUTH TWICE DAILY 05/14/2016 05/26/2016 Inactive 05/13/2016 8:39:57 AM Duragesic 25 mcg/hr transdermal patch RxNorm: 410888 1 Patch TD q72 hours 05/14/2016 06/11/2016 Inactive Duragesic 12 mcg/hr transdermal patch RxNorm: 800973 1 TD q72 hours 04/24/2016 05/23/2016 Inactive capsaicin 0.025 % topical cream RxNorm: 654264 1 Application TOP QID 04/16/2016 07/04/2016 Inactive Duragesic 12 mcg/hr transdermal patch RxNorm: 177069 1 TD q72 hours 04/10/2016 04/23/2016 Inactive Duragesic 25 mcg/hr transdermal patch RxNorm: 964347 1 TD q72 hours 04/10/2016 05/09/2016 Inactive Cipro 500 mg tablet RxNorm: 411482 1 Tablet(s) PO BID 201504/13/2016 Inactive hydrocodone 5 mg-acetaminophen 325 mg tablet RxNorm: 929461 1 Tablet(s) PO Q4H as needed 03/20/2016 04/18/2016 Inactive Duragesic 12 mcg/hr transdermal patch RxNorm: 638697 1 TD q72 hours 03/20/2016 04/09/2016 Inactive Duragesic 25 mcg/hr transdermal patch RxNorm: 359380 1 TD q72 hours 03/15/2016 04/09/2016 Inactive hydrocodone 5 mg-acetaminophen 325 mg tablet RxNorm: 050435 1 Tablet(s) PO Q4H as needed 03/08/2016 03/19/2016 Inactive Cipro 500 mg tablet RxNorm: 553487 1 Tablet(s) PO BID 201503/06/2016 Inactive Cipro 500 mg tablet RxNorm: 051241 1 Tablet(s) PO BID 201503/13/2016 Inactive Duragesic 12 mcg/hr transdermal patch RxNorm: 468708 1 TD q72 hours 02/27/2016 03/19/2016 Inactive Duragesic 12 mcg/hr transdermal patch RxNorm: 889448 1 TD q72 hours 01/29/2016 02/26/2016 Inactive [SAVINGS FOR NON-COVERED DRUGS -- BIN:[id number], PCN: ASPROD1, Group : XXXXX, ID# [id number], Questions: . THIS IS NOT INSURANCE.] Lasix 20 mg tablet RxNorm: 823333 2 Tablet(s) PO daily 201501/28/2016 Inactive potassium chloride ER 10 mEq tablet,extended release RxNorm: 876303 2 Tablet(s) PO daily to take while taking the lasix 01/24/2016 01/28/2016 Inactive Duragesic 25 mcg/hr transdermal patch RxNorm: 802442 1 TD q72 hours 01/16/2016 02/14/2016 Inactive Duragesic 25 mcg/hr transdermal patch RxNorm: 427505 1 TD q72 hours APPLY WITH DURAGESIC 12MCG 1 Q 72 01/03/20162015 Inactive [SAVINGS FOR NON-COVERED DRUGS -- BIN:577609, PCN: ASPROD1, Group: XXXXX, ID# [id number], Questions: [phone]. THIS IS NOT INSURANCE.] hydrocodone 5 mg-acetaminophen 325 mg tablet RxNorm: 799943 1 Tablet(s) PO Q4H as needed 01/02/2016 03/07/2016 Inactive [SAVINGS FOR NON-COVERED DRUGS -- BIN:260266 , PCN: ASPROD1, Group: XXXXX, ID# [id number], Questions: . THIS IS NOT INSURANCE.] Myrbetriq 50 mg tablet,extended release RxNorm: 3686040 1 Tablet(s) PO daily 12/28/2015 04/25/2016 Inactive PA approved Duragesic 25 mcg/hr transdermal patch RxNorm: 853316 1 TD q72 hours 12/18/2015 01/02/2016 Inactive [SAVINGS FOR NON-COVERED DRUGS -- BIN:671990, PCN: ASPROD1, Group : XXXXX, ID# [id number], Questions: . THIS IS NOT INSURANCE.] Duragesic 25 mcg/hr transdermal patch RxNorm: 143377 1 TD q72 hours 11/17/2015 12/17/2015 Inactive [SAVINGS FOR NON-COVERED DRUGS -- BIN:345203, PCN: ASPROD1, Group : XXXXX, ID# [id number], Questions: . THIS IS NOT INSURANCE.] Myrbetriq 50 mg tablet,extended release RxNorm: 6088001 1 Tablet(s) PO daily 10/31/2015 12/27/2015 Inactive increase dose Myrbetriq 25 mg tablet,extended release RxNorm: 3128100 1 Tablet(s) PO daily 10/24/2015 10/30/2015 Inactive send PA form if required Myrbetriq 25 mg tablet,extended release RxNorm: 2276989 1 Tablet(s) PO daily 10/24/2015 10/23/2015 Inactive send PA form if required Duragesic 25 mcg/hr transdermal patch RxNorm: 521752 1 TD q72 hours 10/18/2015 11/16/2015 Inactive [SAVINGS FOR NON-COVERED DRUGS -- BIN:765070, PCN: ASPROD1, Group : XXXXX, ID# XXXXXXX, Questions: . THIS IS NOT INSURANCE.] Namenda 10 mg tablet RxNorm: 228495 1 Tablet(s) PO BID 201505/21/2016 Inactive Lantus Solostar 100 unit/mL (3 mL) subcutaneous insulin pen RxNorm: 998983 30 Unit(s) SQ daily (may be adjusted for further glucose control) 10/12/2015 05/23/2016 Inactive [SAVINGS FOR UNINSURED PATIENTS -- BIN:868280, PCN: ASPROD1, Group: AME08, ID# [id number], Process claim through [facility], for questions: [phone]. THIS IS NOT INSURANCE.] Mirapex 1 mg tablet RxNorm: 924465 1 Tablet(s) PO TID 201505/21/2016 Inactive Duragesic 25 mcg/hr transdermal patch RxNorm: 734828 1 TD q72 hours 09/18/2015 10/17/2015 Inactive [SAVINGS FOR NON-COVERED DRUGS -- BIN:646362, PCN: ASPROD1, Group : XXXXX, ID# XXXXXXX, Questions: . THIS IS NOT INSURANCE.] Sinemet CR 50 mg-200 mg tablet,extended release RxNorm: 706603 2 Tablet(s) PO QID 08/21/2015 10/12/2015 Inactive Duragesic 25 mcg/hr transdermal patch RxNorm: 915219 1 TD q72 hours 08/21/2015 09/17/2015 Inactive [SAVINGS FOR NON-COVERED DRUGS -- BIN:227319, PCN: ASPROD1, Group : XXXXX, ID# XXXXXXX, Questions: . THIS IS NOT INSURANCE.] Namenda XR 7 mg-14 mg-21 mg-28 mg capsule,sprinkle,ER 24hr, dose pack RxNorm: 216319 Capsule(s) PO 08/21/2015 08/21/2015 Inactive gabapentin 100 mg capsule RxNorm: 332657 1 Capsule(s) PO once daily at noon and 300mg BID 08/21/2015 05/20/2016 Inactive [SAVINGS FOR NON-COVERED DRUGS -- BIN: 185772, PCN: ASPROD1, Group: XXXXX, ID# XXXXXXX, Questions: . THIS IS NOT INSURANCE.] Mirapex 1 mg tablet RxNorm: 053002 1 Tablet(s) PO QPM 201509/19/2015 Inactive Lantus Solostar 100 unit/mL (3 mL) subcutaneous insulin pen RxNorm: 947714 25 Unit(s) SQ daily (may be adjusted for further glucose control) 08/21/2015 10/11/2015 Inactive [SAVINGS FOR UNINSURED PATIENTS -- BIN:591714, PCN: ASPROD1, Group: AME08, ID# [id number], Process claim through [facility], for questions: [phone]. THIS IS NOT INSURANCE.] Duragesic 12 mcg/hr transdermal patch RxNorm: 985004 1 TD q72 hours 08/04/2015 08/20/2015 Inactive [SAVINGS FOR NON-COVERED DRUGS -- BIN:511156, PCN: ASPROD1, Group : XXXXX, ID# XXXXXXX, Questions: . THIS IS NOT INSURANCE.] Augmentin 500 mg-125 mg tablet RxNorm: 151654 1 Tablet(s) PO TID 07/27/2015 07/26/2015 Inactive Augmentin 500 mg-125 mg tablet RxNorm: 578737 1 Tablet(s) PO TID 07/27/2015 08/02/2015 Inactive Cipro 500 mg tablet RxNorm: 332245 1 Tablet(s) PO BID 201507/06/2015 Inactive Cipro 500 mg tablet RxNorm: 440674 1 Tablet(s) PO BID 201510/11/2015 Inactive Duragesic 12 mcg/hr transdermal patch RxNorm: 654910 1 TD q72 hours 07/04/2015 08/03/2015 Inactive [SAVINGS FOR NON-COVERED DRUGS -- BIN:157861, PCN: ASPROD1, Group : XXXXX, ID# XXXXXXX, Questions: . THIS IS NOT INSURANCE.] hydrocodone 5 mg-acetaminophen 325 mg tablet RxNorm: 781721 1 Tablet(s) PO Q4H as needed 07/03/2015 01/01/2016 Inactive [SAVINGS FOR NON-COVERED DRUGS -- BIN:269919 , PCN: ASPROD1, Group: XXXXX, ID# XXXXXXX, Questions: . THIS IS NOT INSURANCE.] Duragesic 12 mcg/hr transdermal patch RxNorm: 561402 1 TD q72 hours 06/05/2015 07/03/2015 Inactive [SAVINGS FOR NON-COVERED DRUGS -- BIN:782515, PCN: ASPROD1, Group : XXXXX, ID# XXXXXXX, Questions: . THIS IS NOT INSURANCE.] Duragesic 12 mcg/hr transdermal patch RxNorm: 306642 1 TD q72 hours 05/09/2015 06/04/2015 Inactive [SAVINGS FOR NON-COVERED DRUGS -- BIN:113370, PCN: ASPROD1, Group : XXXXX, ID# XXXXXXX, Questions: . THIS IS NOT INSURANCE.] hydrocodone 5 mg-acetaminophen 325 mg tablet RxNorm: 015938 1 Tablet(s) PO Q4H as needed 04/27/2015 07/02/2015 Inactive [SAVINGS FOR NON-COVERED DRUGS -- BIN:421314 , PCN: ASPROD1, Group: XXXXX, ID# XXXXXXX, Questions: . THIS IS NOT INSURANCE.] Duragesic 12 mcg/hr transdermal patch RxNorm: 637505 1 TD q72 hours 04/06/2015 05/08/2015 Inactive [SAVINGS FOR NON-COVERED DRUGS -- BIN:796010, PCN: ASPROD1, Group : XXXXX, ID# XXXXXXX, Questions: . THIS IS NOT INSURANCE.] Duragesic 12 mcg/hr transdermal patch RxNorm: 645319 1 TD q72 hours 03/07/2015 04/05/2015 Inactive [SAVINGS FOR NON-COVERED DRUGS -- BIN:315567, PCN: ASPROD1, Group : XXXXX, ID# XXXXXXX, Questions: . THIS IS NOT INSURANCE.] hydrocodone 5 mg-acetaminophen 325 mg tablet RxNorm: 249544 1 Tablet(s) PO Q4H as needed 02/16/2015 04/26/2015 Inactive [SAVINGS FOR NON-COVERED DRUGS -- BIN:018408 , PCN: ASPROD1, Group: XXXXX, ID# XXXXXXX, Questions: . THIS IS NOT INSURANCE.] Mirapex 0.25 mg tablet RxNorm: 015393 1 Tablet(s) PO QPM 201403/17/2015 Inactive Duragesic 12 mcg/hr transdermal patch RxNorm: 321368 1 TD q72 hours 01/31/2015 03/06/2015 Inactive [SAVINGS FOR NON-COVERED DRUGS -- BIN:753831, PCN: ASPROD1, Group : XXXXX, ID# XXXXXXX, Questions: . THIS IS NOT INSURANCE.] Duragesic 12 mcg/hr transdermal patch RxNorm: 607017 1 TD q72 hours 01/03/2015 01/30/2015 Inactive [SAVINGS FOR NON-COVERED DRUGS -- BIN:066535, PCN: ASPROD1, Group : XXXXX, ID# XXXXXXX, Questions: . THIS IS NOT INSURANCE.] hydrocodone 5 mg-acetaminophen 325 mg tablet RxNorm: 390645 1 Tablet(s) PO Q4H as needed 12/21/2014 02/15/2015 Inactive [SAVINGS FOR NON-COVERED DRUGS -- BIN:468208 , PCN: ASPROD1, Group: XXXXX, ID# XXXXXXX, Questions: . THIS IS NOT INSURANCE.] Duragesic 12 mcg/hr transdermal patch RxNorm: 858931 1 TD q72 hours 12/14/2014 01/02/2015 Inactive [SAVINGS FOR NON-COVERED DRUGS -- BIN:035336, PCN: ASPROD1, Group : XXXXX, ID# XXXXXXX, Questions: . THIS IS NOT INSURANCE.] Duragesic 12 mcg/hr transdermal patch RxNorm: 217821 1 TD q72 hours 11/07/2014 12/13/2014 Inactive [SAVINGS FOR NON-COVERED DRUGS -- BIN:507320, PCN: ASPROD1, Group : XXXXX, ID# XXXXXXX, Questions: . THIS IS NOT INSURANCE.] Vitamin D2 50,000 unit capsule RxNorm: 781323 TAKE 1 CAPSULE WEEKLY (AFTER FINISHED WITH VIT D 33093K FOR THE 12 WEEKS, START OTC VITAMIN D 2000 UNITS DAILY) 10/24/2014 06/20/2016 Inactive Duragesic 12 mcg/hr transdermal patch RxNorm: 141772 1 TD q72 hours 10/11/2014 11/06/2014 Inactive [SAVINGS FOR NON-COVERED DRUGS -- BIN:153886, PCN: ASPROD1, Group : XXXXX, ID# XXXXXXX, Questions: . THIS IS NOT INSURANCE.] Sinemet CR 50 mg-200 mg tablet,extended release RxNorm: 321412 1 Tablet(s) PO BID 10/05/2014 05/02/2015 Inactive Lantus Solostar 100 unit/mL (3 mL) subcutaneous insulin pen RxNorm: 663120 15 Unit(s) SQ daily (may be adjusted for further glucose control) 09/28/2014 08/20/2015 Inactive [SAVINGS FOR UNINSURED PATIENTS -- BIN:160174, PCN: ASPROD1, Group: AME08, ID# [id number], Process claim through [facility], for questions: [phone]. THIS IS NOT INSURANCE.] Duragesic 12 mcg/hr transdermal patch RxNorm: 508667 1 TD q72 hours 09/26/2014 10/10/2014 Inactive [SAVINGS FOR NON-COVERED DRUGS -- BIN:194618, PCN: ASPROD1, Group : XXXXX, ID# XXXXXXX, Questions: . THIS IS NOT INSURANCE.] hydrocodone 5 mg-acetaminophen 325 mg tablet RxNorm: 865551 1 Tablet(s) PO Q4H as needed 09/23/2014 12/20/2014 Inactive [SAVINGS FOR NON-COVERED DRUGS -- BIN:562804 , PCN: ASPROD1, Group: XXXXX, ID# XXXXXXX, Questions: . THIS IS NOT INSURANCE.] Duragesic 12 mcg/hr transdermal patch RxNorm: 778192 1 TD q72 hours 09/09/2014 09/25/2014 Inactive [SAVINGS FOR NON-COVERED DRUGS -- BIN:867209, PCN: ASPROD1, Group : XXXXX, ID# XXXXXXX, Questions: . THIS IS NOT INSURANCE.] carbidopa 25 mg-levodopa 100 mg tablet RxNorm: 150438 2 in the am 1 at noon and 1 katie Tablet(s) PO BID 08/31/20142014 Inactive [SAVINGS FOR NON-COVERED DRUGS -- BIN:827398, PCN: ASPROD1, Group: XXXXX, ID# [id number], Questions: [phone]. THIS IS NOT INSURANCE.] Vitamin D2 50,000 unit capsule RxNorm: 894520 1 CAPSULE(S) PO WEEKLY X 12 WEEKS 08/15/2014 10/23/2014 Inactive hydrocodone 5 mg-acetaminophen 325 mg tablet RxNorm: 118546 1 Tablet(s) PO Q4H as needed 08/12/2014 09/22/2014 Inactive [SAVINGS FOR NON-COVERED DRUGS -- BIN:423980 , PCN: ASPROD1, Group: XXXXX, ID# [id number], Questions: . THIS IS NOT INSURANCE.] hydrocodone 10 mg-acetaminophen 325 mg tablet RxNorm: 239199 1/2 to 1 Tablet(s) PO q 4 hours prn for uncontrolled pain 07/14/2014 08/11/2014 Inactive [SAVINGS FOR NON-COVERED DRUGS -- BIN:240893, PCN: ASPROD1, Group: XXXXX, ID# [id number], Questions: . THIS IS NOT INSURANCE.] gabapentin 100 mg capsule RxNorm: 416906 1 Capsule(s) PO nightly x1week, then twice daily x 1 week, then tihree times daily thereafter 08/20/2015 Inactive [SAVINGS FOR NON-COVERED DRUGS -- BIN:148067, PCN: ASPROD1, Group: XXXXX, ID# [id number], Questions: . THIS IS NOT INSURANCE.] Bactrim DS 800 mg-160 mg tablet RxNorm: 983744 1 Tablet(s) PO BID 07/01/2014 07/07/2014 Inactive [SAVINGS FOR NON-COVERED DRUGS -- BIN:801445, PCN: ASPROD1, Group: [id number], ID# [id number], Questions: . THIS IS NOT INSURANCE.] Bactrim DS 800 mg-160 mg tablet RxNorm: 751269 1 Tablet(s) PO BID 07/01/2014 06/30/2014 Inactive Vitamin D2 50,000 unit capsule RxNorm: 347355 1 Capsule(s) PO weekly x 12 weeks 06/07/2014 08/14/2014 Inactive after patient is finished with vit D 08910w for the 12 weeks, she is to start on OTC vitamin D 2000 units daily Keflex 500 mg capsule RxNorm: 749439 1 Capsule(s) PO BID 201405/29/2014 Inactive carbidopa 25 mg-levodopa 100 mg tablet RxNorm: 678560 1 Tablet(s) PO BID 05/30/2014 08/30/2014 Inactive [SAVINGS FOR UNINSURED PATIENTS -- BIN:784995, PCN: ASPROD1 , Group: [id number], ID# [id number], Process claim through [facility], for questions: 1- [phone]. THIS IS NOT INSURANCE.] Keflex 500 mg capsule RxNorm: 819078 1 Capsule(s) PO BID 201406/05/2014 Inactive [SAVINGS FOR UNINSURED PATIENTS -- BIN:694335, PCN: ASPROD1, Group: [id number], ID # [id number], Process claim through [employer], for questions: . THIS IS NOT INSURANCE.] carbidopa 25 mg-levodopa 100 mg tablet RxNorm: 280076 1 Tablet(s) PO BID 05/23/2014 05/29/2014 Inactive [SAVINGS FOR UNINSURED PATIENTS -- BIN:548620, PCN: ASPROD1 , Group: [id number], ID# [id number], Process claim through [employer], for questions: 1- [phone]. THIS IS NOT INSURANCE.] carbidopa 25 mg-levodopa 100 mg tablet RxNorm: 883922 1/2 Tablet(s) PO BID 05/03/2014 05/22/2014 Inactive [SAVINGS FOR UNINSURED PATIENTS -- BIN:354708, PCN: ASPROD1, Group: [id number], ID# [id number], Process claim through [employer], for questions: . THIS IS NOT INSURANCE.] pen needle, diabetic, remover & disposal unit 31 x /16" RxNorm: 1 use Miscellaneous 03/31/2014 09/21/2015 Inactive [SAVINGS FOR UNINSURED PATIENTS -- BIN :655965, PCN: ASPROD1, Group: [id number], ID# [id number], Process claim through [employer], for questions: . THIS IS NOT INSURANCE.] Lantus Solostar 100 unit/mL (3 mL) subcutaneous insulin pen RxNorm: 510227 10 Unit(s) SQ daily (may be adjusted for further glucose control) 03/31/2014 09/27/2014 Inactive [SAVINGS FOR UNINSURED PATIENTS -- BIN:433043, PCN: ASPROD1, Group: [id number], ID# [id number], Process claim through [employer], for questions: [phone]. THIS IS NOT INSURANCE.] Vitamin D2 50,000 unit capsule RxNorm: 739171 1 Capsule(s) PO weekly x 12 weeks 03/22/2014 06/06/2014 Inactive after patient is finished with vit D 80862e for the 12 weeks, she is to start on OTC vitamin D 2000 units daily Vitamin D2 50,000 unit capsule RxNorm: 240085 1 Capsule(s) PO weekly x 12 weeks 03/22/2014 03/21/2014 Inactive after patient is finished with vit D 11558b for the 12 weeks, she is to start on OTC vitamin D 2000 units daily metformin 500 mg tablet RxNorm: 899764 1 Tablet(s) PO BID 03/1803/30/2014 Inactive [SAVINGS FOR UNINSURED PATIENTS -- BIN:730164, PCN: ASPROD1, Group: [id number], ID# [id number], Process claim through [facility], for questions: . THIS IS NOT INSURANCE.] Lidoderm 5 % (700 mg/patch) adhesive patch RxNorm: 6230202 1 TOP PRN for back pain. NEEDS PA IF ORDERED AGAIN No Start Date Active diclofenac sodium topical RxNorm: 3355 topical No Start Date Active Lasix 20 mg tablet RxNorm: 634359 Tablet(s) daily x 5 with k 10 daily x 5 PO No Start Date Active multivitamin tablet RxNorm: 1 Tablet(s) PO daily No Start Date Active oxybutynin chloride 5 mg tablet RxNorm: 721893 1 Tablet(s) PO daily No Start Date 03/30/2014 Inactive Sinemet CR 25 mg-100 mg tablet,extended release RxNorm: 166060 2 Tablet(s) PO QID No Start Date 06/19/2016 Inactive Namenda 5 mg tablet RxNorm: 374140 Tablet(s) PO No Start Date 10/11/2015 Inactive amlodipine 2.5 mg tablet RxNorm: 862846 1 Tablet(s) PO daily No Start Date 03/30/2014 Inactive Cozaar 50 mg tablet RxNorm: 935858 1 Tablet(s) PO daily No Start Date 05/21/2016 Inactive Voltaren 1 % topical gel RxNorm: 986775 4 Gram(s) TOP to lower back/hips QID No Start Date 07/10/2016 Inactive hydrochlorothiazide 25 mg tablet RxNorm: 298805 1 Tablet(s) PO daily No Start Date 03/30/2014 Inactive pramipexole 0.25 mg tablet RxNorm: 658798 1 Tablet(s) PO daily No Start Date 05/02/2014 Inactive simvastatin 40 mg tablet RxNorm: 313470 oral No Start Date 05/02/2014 Inactive vitamin Z78-qeeajrk B1 oral liquid RxNorm: PO No Start Date 10/12/2015 Inactive 2000u daily Fosamax Plus D oral RxNorm: 298216 oral No Start Date 05/02/2014 Inactive Actos 45 mg tablet RxNorm: 504195 1 Tablet(s) PO daily No Start Date 03/30/2014 Inactive Duragesic 12 mcg/hr transdermal patch RxNorm: 169625 1 TD q72 hours No Start Date 09/08/2014 Inactive Vitamin D3 2,000 unit capsule RxNorm: 735943 1 Capsule(s) PO daily No Start Date 11/07/2015 Inactive mecobalamin 5,000 mcg disintegrating tablet RxNorm: 7050338 1 Tablet(s) PO daily No Start Date 05/21/2016 Inactive magnesium 250 mg tablet RxNorm: 1 Tablet(s) PO daily No Start Date 05/02/2014 Inactive Refresh Tears 0.5 % eye drops RxNorm: 6674750 1 Drop(s) OPH daily as needed for dry eyes No Start Date 06/27/2016 Inactive furosemide 40 mg tablet RxNorm: 699217 1 Tablet(s) PO daily No Start Date 05/02/2014 Inactive trazodone 50 mg tablet RxNorm: 324778 1 Tablet(s) PO QHS No Start Date 05/21/2016 Inactive glipizide 10 mg tablet RxNorm: 636472 1 Tablet(s) PO daily No Start Date 05/02/2014 Inactive hydrocodone 10 mg-acetaminophen 325 mg tablet RxNorm: 538980 oral No Start Date 07/13/2014 Inactive Refresh ophthalmic RxNorm: 091670 ophthalmic No Start Date 06/28/2016 Inactive capsaicin 0.025 % topical cream RxNorm: 135047 1 Application TOP QID No Start Date 04/15/2016 Inactive Aleve 220 mg tablet RxNorm: 979405 1 Tablet(s) PO daily as needed No Start Date 05/13/2016 Inactive senna 8.6 mg tablet RxNorm: 817733 1 Tablet(s) PO daily as needed No Start Date 10/02/2016 Inactive biotin 1000 mcg RxNorm : 1 Tablet(s) PO daily No Start Date 05/02/2014 Inactive ranitidine 150 mg capsule RxNorm: 512955 2 Capsule(s) PO daily No Start Date 05/02/2014 Inactive hydrocodone 5 mg-acetaminophen 325 mg tablet RxNorm: 625434 1 Tablet(s) PO Q4H as needed No Start Date 08/11/2014 Inactive Calcitrate-Vitamin D oral RxNorm: 1895 oral No Start Date 11/07/2015 Inactive potassium chloride RxNorm: 43598 miscellaneous No Start Date 05/02/2014 Inactive metformin 500 mg tablet RxNorm: 935905 2 Tablet(s) PO daily No Start Date 03/17/2014 Inactive aspirin 81 mg tablet RxNorm: 832777 1 Tablet(s) PO daily No Start Date [...] Item Item Code Result Date Culture Urine [id number] URINE CULTURE SEE NOTES 05/02/2017 Culture Urine [id number] Continued Results 05/02/2017 Urine Culture Ucult Complete [...] U-Com Culture to follow 04/29/2017 Culture Urine [id number] URINE CULTURE SEE NOTES 04/07/2017 Culture Urine [id number] Continued Results 04/07/2017 Urine Culture Ucult Complete [...] U-VOL VOLUME SUFFICIENT (10mL) 04/04/2017 Urinalysis Ord28 U-Com Culture to follow 04/04/2017 Urinalysis Ord28 U-Yeast NEGATIVE 04/04/2017 Culture Urine [id number] URINE CULTURE SEE NOTES 01/13/2017 Culture Urine [id number] Continued Results 01/13/2017 Urine Culture Ucult Complete [...] U-VOL VOLUME SUFFICIENT (10mL) 01/10/2017 Urinalysis Ord28 U-Yeast NEGATIVE 01/10/2017 Urinalysis Ord28 U-Com Culture to follow 01/10/2017 Urinalysis Ord28 U-Color Yellow 11/25/2016 Urinalysis [...] U-VOL VOLUME SUFFICIENT (10mL) 11/25/2016 Urinalysis Ord28 U-Com No culture indicated, Urine saved if culture needed ( specimen acceptable for 48 hours from collection if refrigerated) 11/25/2016 Urinalysis Ord28 U-Yeast NEGATIVE 11/25/2016 Uric Acid Ord77 Uric A 4.5 mg/dL 07/29/2016 Comp Metabolic Mhy697 NA 134 mEq/L 06/26/2016 Comp Metabolic Sxy264 K 4.8 mEq/L 06/26/2016 Comp Metabolic Ryi463 CL 98 mEq/L 06/26/2016 Comp Metabolic Vfb909 CO2 28.0 mEq/L 06/26/2016 Comp Metabolic Hmk236 ANION GAP 13 06/26/2016 Comp Metabolic Xsd295 GLUCOSE 270 mg/dL 06/26/2016 Comp Metabolic Hqx096 Creat 0.9 mg/dL 06/26/2016 Comp Metabolic Efz456 eGFR 68 ml/min/1.73m2 06/26/2016 Comp Metabolic Xmj776 BUN 22 mg/dL 06/26/2016 Comp Metabolic Khg501 B/C Ratio 25.9 Ratio 06/26/2016 Comp Metabolic Sjc032 CALCIUM 9.0 mg/dL 06/26/2016 Comp Metabolic Kzi401 ALK PHOS 119 U/L 06/26/2016 Comp Metabolic Eof011 AST(SGOT) 34 U/L 06/26/2016 Comp Metabolic Ewu451 ALT(SGPT) 18 U/L 06/26/2016 Comp Metabolic Dgp762 BILI T 0.5 mg/dL 06/26/2016 Comp Metabolic Fvn795 ALBUMIN 4.1 g/dL 06/26/2016 Comp Metabolic Cne176 TPRO 6.8 g/dL 06/26/2016 Comp Metabolic Yjk637 GLOB 2.7 g/dL 06/26/2016 Comp Metabolic Ggr397 A/G Ratio 1.5 Ratio 06/26/2016 Comp Metabolic Aee175 Osmo 281 mOsmo 06/26/2016 Tsh Ord6 hTSH II 1.57 uIU/mL 06/26/2016 %Hba1C Mse874 % HbA1c 10614-5 7.6 % 06/26/2016 %Hba1C Vpk849 Gluc Ave 171 mg/dL 06/26/2016 Lipid Ord30 CHOL 225 mg/dL 06/26/2016 Lipid Ord30 HDL 49.0 mg/dl 06/26/2016 Lipid Ord30 TRIG 208 mg/dL 06/26/2016 Lipid Ord30 LDL 134 mg/dL 06/26/2016 Lipid Ord30 C/HDL 4.6 Ratio 06/26/2016 Vitamin D 25 Oh Vye3620 VITAMIN D, 25 HYDROXY 65.10 ng/mL Culture Urine [id number] URINE CULTURE SEE NOTES 03/11/2016 Culture Urine [id number] Continued Results 03/11/2016 Urine Culture Ucult Complete [...] Ord15 CALCIUM 9.5 mg/dL 01/24/2016 Culture Urine [id number] URINE CULTURE SEE NOTES 12/29/2015 Culture Urine [id number] Continued Results 12/29/2015 Urine Culture Ucult Complete >100,000 col/ml aerobic growth sent to ref lab 12/27/2015 %Hba1C Oxy148 % HbA1c 84370-5 8.3 % 12/26/2015 %Hba1C Rur312 Gluc Ave 192 mg/dL 12/26/2015 Culture Urine [id number] URINE CULTURE SEE NOTES 10/09/2015 Culture Urine [id number] Continued Results 10/09/2015 Urine Culture Ucult Complete [...] hTSH II 1.24 uIU/mL 09/13/2015 Comp Metabolic Vwg358 NA 137 mEq/L 09/13/2015 Comp Metabolic Het130 K 4.5 mEq/L 09/13/2015 Comp Metabolic Nvb302 CL 100 mEq/L 09/13/2015 Comp Metabolic Jnv488 CO2 28.0 mEq/L 09/13/2015 Comp Metabolic Gtb875 ANION GAP 14 09/13/2015 Comp Metabolic Opo498 GLUCOSE 124 mg/dL 09/13/2015 Comp Metabolic Ebk232 Creat 0.9 mg/dL 09/13/2015 Comp Metabolic Kfm690 eGFR 65 ml/min/1.73m2 09/13/2015 Comp Metabolic Izi452 BUN 20 mg/dL 09/13/2015 Comp Metabolic Sxs160 B/C Ratio 22.7 Ratio 09/13/2015 Comp Metabolic Qxs492 CALCIUM 8.8 mg/dL 09/13/2015 Comp Metabolic Otr269 ALK PHOS 64 U/L 09/13/2015 Comp Metabolic New558 AST(SGOT) 16 U/L 09/13/2015 Comp Metabolic Mbr524 ALT(SGPT) 13 U/L 09/13/2015 Comp Metabolic Ikv064 BILI T 0.7 mg/dL 09/13/2015 Comp Metabolic Dic626 ALBUMIN 3.9 g/dL 09/13/2015 Comp Metabolic Wgt510 TPRO 6.7 g/dL 09/13/2015 Comp Metabolic Tnl206 GLOB 2.8 g/dL 09/13/2015 Comp Metabolic Yuh862 A/G Ratio 1.4 Ratio 09/13/2015 Comp Metabolic Bcm075 Osmo 278 mOsmo 09/13/2015 Cbc With Differential [...] 30.1 pg 09/13/2015 Cbc With Differential Ord2 [place]% 6.6 % 09/13/2015 Cbc With Differential Ord2 Eos% 1.4 % 09/13/2015 Cbc With Differential Ord2 MCHC 32.4 pg 09/13/2015 Cbc With Differential Ord2 PLT 192 K/ul 09/13/2015 Cbc With Differential Ord2 Baso% 0.3 % 09/13/2015 Cbc With Differential Ord2 Neut ABS# 4.36 K/ul 09/13/2015 Cbc With Differential Ord2 RDW 15.0 % 09/13/2015 Cbc With Differential Ord2 Lymph ABS# 1.66 K/ul 09/13/2015 Cbc With Differential Ord2 [place] ABS# 0.4 K/ul 09/13/2015 Cbc With Differential Ord2 Eos ABS# 0.1 K/ul 09/13/2015 Cbc With Differential Ord2 Baso ABS# 0.0 K/ul 09/13/2015 Cbc With Differential Ord2 New Analyzer Notice Please note new ref ranges starting 05-10-2015 due to implemntation of new five part differential hematolgy analyzer. 09/13/2015 %Hba1C Puo468 % HbA1c 31526-3 9.1 % 09/13/2015 %Hba1C Jeb450 Gluc Ave 214 mg/dL 09/13/2015 Urine Culture [...] U-VOL VOLUME SUFFICIENT (10mL) 09/08/2015 Urinalysis Ord28 U-Com Culture to follow 09/08/2015 Urinalysis Ord28 U-Yeast NEGATIVE 09/08/2015 Culture Urine [id number] URINE CULTURE SEE NOTES 03/03/2015 Culture Urine [id number] Continued Results 03/03/2015 Urine Culture Ucult Complete [...] U-VOL VOLUME SUFFICIENT (10mL) 01/17/2015 Urinalysis Ord28 U-Yeast NEGATIVE 01/17/2015 Urinalysis Ord28 U-Com Culture to follow 01/17/2015 Vitamin D 25 Oh Tfn1874 VITAMIN D, 25 HYDROXY 48.78 ng/mL Comp Metabolic Nwx875 NA 135 mEq/L 12/13/2014 Comp Metabolic Cpt550 K 4.5 mEq/L 12/13/2014 Comp Metabolic Ygm339 CL 101 mEq/L 12/13/2014 Comp Metabolic Mbr888 CO2 28.0 mEq/L 12/13/2014 Comp Metabolic Zof412 ANION GAP 11 12/13/2014 Comp Metabolic Huo029 GLUCOSE 90 mg/dL 12/13/2014 Comp Metabolic Gei947 Creat 1.1 mg/dL 12/13/2014 Comp Metabolic Ppi072 eGFR 50 ml/min/1.73m2 12/13/2014 Comp Metabolic Agy760 BUN 19 mg/dL 12/13/2014 Comp Metabolic Ylx537 B/C Ratio 17.1 Ratio 12/13/2014 Comp Metabolic Lqd244 CALCIUM 9.3 mg/dL 12/13/2014 Comp Metabolic Ffv160 ALK PHOS 74 U/L 12/13/2014 Comp Metabolic Yjr339 AST(SGOT) 16 U/L 12/13/2014 Comp Metabolic Cyc015 ALT(SGPT) 3 U/L 12/13/2014 Comp Metabolic Frf003 BILI T 0.4 mg/dL 12/13/2014 Comp Metabolic Geg278 ALBUMIN 3.7 g/dL 12/13/2014 Comp Metabolic Kak025 TPRO 6.4 g/dL 12/13/2014 Comp Metabolic Uio898 GLOB 2.7 g/dL 12/13/2014 Comp Metabolic Svn755 A/G Ratio 1.4 Ratio 12/13/2014 Comp Metabolic Jyj857 Osmo 272 mOsmo 12/13/2014 Tsh Ord6 hTSH [...] Differential Ord2 RDW 15.1 % 12/13/2014 %Hba1C Lcl092 % HbA1c 67923-2 7.2 % 12/13/2014 %Hba1C Dnm845 Gluc Ave 160 mg/dL 12/13/2014 Review of [...] lips 09/27/2016 None Full Exam - General 1994 Ears/Nose/Throat lips/teeth/gingiva Overall: normal dentition 09/27/2016 None [...] lips 06/28/2016 None Full Exam - General 1995 Ears/Nose/Throat lips/teeth/gingiva Overall: normal dentition 06/28/2016 None [...] accomodation 09/28/2014 None Full Exam - General 1995 Ears/Nose/Throat lips/teeth/gingiva Overall: benign lips 09/28/2014 None Full Exam - General 1995 Ears/Nose/Throat lips/teeth/gingiva Overall: normal dentition 09/28/2014 None Full Exam - General 1995 Respiratory auscultation Overall: breath sounds clear bilaterally 09/28/2014 None Full Exam - General 1995 Respiratory respiratory effort/rhythm Overall: no retractions 09/28/2014 None Full Exam - General 1995 Respiratory respiratory effort/rhythm Overall: normal rate 09/28/2014 None Full Exam - General 1995 Cardiovascular extremities Overall: no clubbing 09/28/2014 None Full Exam - General 1995 Cardiovascular extremities Edema present: pitting 09/28/2014 to [...] accomodation 07/12/2014 None Full Exam - General 1995 Ears/Nose/Throat lips/teeth/gingiva Overall: benign lips 07/12/2014 None Full Exam - General 1995 Ears/Nose/Throat lips/teeth/gingiva Overall: normal dentition 07/12/2014 None [...] Codes Date URINALYSIS NONAUTO W/O SCOPE CPT-4: 37071 12/26/2015 URINALYSIS NONAUTO W/O SCOPE CPT-4: 24772 12/09/2014 URINALYSIS NONAUTO W/O SCOPE CPT-4: 47436 07/12/2014 Vital Signs Date Vital 01/09/2017 Blood Pressure 1: 144/82 Code : 8480-6 BMI: 36.8 Code : 40326-9 Heart Rate 1 : 84 bpm Height: 4'11" SpO2: 95% Weight: 182 lbs 09/27/2016 Blood Pressure 1: 152/74 Code : 8480-6 BMI: 38.1 Code : 90091-0 Heart Rate 1 : 80 bpm Height: 4'11" SpO2: 95% Weight: 188 lbs 8 oz 07/29/2016 Blood Pressure 1: 152/76 Code : 8480-6 BMI: 39.0 Code : 35694-5 Heart Rate 1 : 90 bpm Height: 4'11" SpO2: 97% Weight: 193 lbs 06/28/2016 Blood Pressure 1: 130/74 Code : 8480-6 BMI: 40.6 Code : 51322-6 Heart Rate 1 : 85 bpm Height: 4'11" SpO2: 97% Weight: 201 lbs 03/26/2016 Blood Pressure 1: 130/62 Code : 8480-6 Heart Rate 1: 76 bpm Height: SpO2: 93% Weight: 03/07/2016 Blood Pressure 1: 144/60 Code : 8480-6 BMI: 40.4 Code : 77169-4 Heart Rate 1 : 85 bpm Height: 4'11" SpO2: 95% Weight: 200 lbs 01/24/2016 Blood Pressure 1: 134/50 Code : 8480-6 BMI: 40.4 Code : 57103-9 Heart Rate 1 : 91 bpm Height: 4'11" SpO2: 96% Weight: 200 lbs 01/19/2016 Blood Pressure 1: 158/72 Code : 8480-6 BMI: 40.8 Code : 77128-8 Heart Rate 1 : 82 bpm Height: 4'11" SpO2: 96% Weight: 202 lbs 01/16/2016 Blood Pressure 1: 164/70 Code : 8480-6 BMI: 41.2 Code : 07105-5 Heart Rate 1 : 87 bpm Height: 4'11" SpO2: 94% Weight: 204 lbs 12/26/2015 Blood Pressure 1: 142/70 Code : 8480-6 BMI: 40.4 Code : 59159-0 Heart Rate 1 : 89 bpm Height: 4'11" SpO2: 98% Weight: 200 lbs 10/12/2015 Blood Pressure 1: 140/68 Code : 8480-6 BMI: 39.6 Code : 79253-9 Heart Rate 1 : 81 bpm Height: 4'11" SpO2: 96% Weight: 196 lbs 09/08/2015 Blood Pressure 1: 130/80 Code : 8480-6 BMI: 38.8 Code : 11194-5 Heart Rate 1 : 94 bpm Height: 4'11" SpO2: 95% Weight: 192 lbs 08/21/2015 Blood Pressure 1: 128/82 Code : 8480-6 BMI: 38.4 Code : 92446-2 Heart Rate 1 : 84 bpm Height: 4'11" SpO2: 96% Weight: 190 lbs 02/16/2015 Blood Pressure 1: 138/68 Code : 8480-6 BMI: 37.2 Code : 67378-0 Heart Rate 1 : 81 bpm Height: 4'11" SpO2: 95% Weight: 184 lbs 01/16/2015 Blood Pressure 1: 134/64 Code : 8480-6 BMI: 36.8 Code : 55266-8 Heart Rate 1 : 76 bpm Height: [...] Weight: 172 lbs 05/03/2014 BMI: 36.2 Code: 11521-8 Height: 4'11" Weight: 179 lbs 03/31/2014 Blood Pressure 1: 112/68 Code : 8480-6 BMI: 35.1 Code : 77164-9 Heart Rate 1 : 74 bpm Height: 4'11" Weight: 174 lbs 03/18/2014 Blood Pressure 1: 138/70 Code : 8480-6 BMI: 37.0 Code : 32222-7 Heart Rate 1 : 78 bpm Height: [...] data Encounters Encounter Performer Location Codes Date EST. PATIENT, LEVEL III Diagnosis: Localized edema[ICD10: R60.0] Diagnosis: Frequency of micturition[ICD10: R35.0] Diagnosis: Urgency of urination[ICD10: R39.15] Tanvi Islas MD, [facility] CPT-4: 71182 01/09/2017 ([id number]) 82274 EST. PATIENT, LEVEL IV Diagnosis: Essential (primary) hypertension[ICD10: I10] Diagnosis: Type 2 diabetes mellitus with hyperglycemia[ICD10: E11.65] Diagnosis: Parkinson's disease[ICD10: G20] Diagnosis: Bilateral primary osteoarthritis of hip[ICD10: M16.0] Amee Islas MD, [facility] CPT-4: 67428 09/27/2016 [id number] EST. PATIENT, LEVEL IV Diagnosis: Pain in right toe(s)[ICD10: M79.674] Diagnosis: Localized edema[ICD10: R60.0] Diagnosis: Low back pain[ICD10: M54.5] Tanvi Islas MD, [facility] CPT-4 : 33840 07/29/2016 ([id number]) 12627 EST. PATIENT, LEVEL III Diagnosis: Pain in left hip[ICD10: M25.552] Amee Islas MD, [facility] CPT-4: 32067 06/28/2016 ([id number]) 65325 EST. PATIENT, LEVEL IV Diagnosis: Type 2 diabetes mellitus with hyperglycemia[ICD10: E11.65] Diagnosis: Parkinson's disease[ICD10: G20] Diagnosis: Essential (primary) hypertension[ICD10: I10] Diagnosis: Muscle weakness (generalized)[ICD10: M62.81] Diagnosis: Localized edema[ICD10: R60.0] Celestina Islas MD, [facility] CPT- 4: 95714 03/26/2016 [id number] EST. PATIENT, LEVEL III Diagnosis: Dysuria[ICD10: R30.0] Diagnosis: Left upper quadrant pain[ICD10: R10.12] Tanvi Islas MD, [facility] CPT-4: 91749 03/07/2016 [id number] EST. PATIENT, LEVEL IV Diagnosis: Encounter for follow-up examination after completed treatment for conditions other than malignant neoplasm[ICD10: Z09] Tanvi Islas MD, [facility] CPT-4: 72451 01/24/2016 ([id number]) Miscellaneous no charge Diagnosis: Localized edema[ICD10: R60.0] Tanvi Islas MD [facility] CPT-4 : 23256 01/19/2016 [id number] EST. PATIENT, LEVEL IV Diagnosis: Localized edema[ICD10: R60.0] Diagnosis: Other skin changes[ICD10: R23.8] Diagnosis: Low back pain[ICD10: M54.5] Tanvi Islas MD, [facility] CPT-4 : 31763 01/16/2016 ([id number]) 19407 EST. PATIENT, LEVEL IV Diagnosis: Type 2 diabetes mellitus with hyperglycemia[ICD10: E11.65] Diagnosis: Parkinson's disease[ICD10: G20] Diagnosis: Essential (primary) hypertension[ICD10: I10] Diagnosis: Dysuria[ICD10: R30.0] Diagnosis: Low back pain[ICD10: M54.5] Celestina Islas MD, [facility] CPT- 4: 16160 12/26/2015 ([id number]) 24068 EST. PATIENT, LEVEL IV Diagnosis: Type 2 diabetes mellitus with hyperglycemia[ICD10: E11.65] Diagnosis: Parkinson's disease[ICD10: G20] Diagnosis: Essential (primary) hypertension[ICD10: I10] Diagnosis: Bilateral primary osteoarthritis of hip[ICD10: M16.0] Celestina Islas MD, [facility] CPT-4: 30620 10/12/2015 ([id number]) 46016 EST. PATIENT, LEVEL III Diagnosis: Essential (primary) hypertension[ICD10: I10] Diagnosis: Localized edema[ICD10: R60.0] Diagnosis: Unsteadiness on feet[ICD10: R26.81] Diagnosis: Muscle weakness (generalized)[ICD10: M62.81] Diagnosis: Bilateral primary osteoarthritis of hip[ICD10: M16.0] Amee Islas MD, [facility] CPT-4: 57379 09/08/[id number]) 33689 EST. PATIENT, LEVEL IV Diagnosis: Type 2 diabetes mellitus with hyperglycemia[ICD10: E11.65] Diagnosis: Essential (primary) hypertension[ICD10: I10] Diagnosis: Muscle weakness (generalized)[ICD10: M62.81] Diagnosis: Parkinson's disease[ICD10: G20] Diagnosis: Low back pain[ICD10: M54.5] Amee Islas MD [facility] CPT-4: 96236 08/21/2015 ([id number]) 95635 EST. PATIENT, LEVEL IV Diagnosis: Parkinson's disease[ICD10: G20] Diagnosis: Essential (primary) hypertension[ICD10: I10] Diagnosis: Type 2 diabetes mellitus with hyperglycemia[ICD10: E11.65] Diagnosis: Pain in unspecified hip[ICD10: M25.559] Celestina Islas MD [facility] CPT-4: 22579 02/16/2015 ([id number]) 17498 EST. PATIENT, LEVEL IV Diagnosis: Dysuria[ICD9: 788.1] Diagnosis: Parkinson's disease[ICD9: 332.0] Diagnosis: ESSENTIAL HYPERTENSION[ICD9: 401.9] Amee Islas MD [facility] CPT-4: 98664 01/16/2015 ([id number]) 46504 EST. PATIENT, LEVEL IV Diagnosis: UTI (urinary tract infection)[ICD9: 599.0] Diagnosis: DM W/O COMPLICATION TYPE II, UNCONTROLLED[ICD9: 250.02] Diagnosis: ESSENTIAL HYPERTENSION[ICD9: 401.9] Diagnosis: EDEMA[ICD9: 782.3] Celestina Islas MD, [facility] CPT-4: 27047 12/09/2014 ([id number]) 26969 EST. PATIENT, LEVEL IV Diagnosis: ESSENTIAL HYPERTENSION[ICD9: 401.9] Diagnosis: DIABETES TYPE II[ICD9: 250.00] Diagnosis: Parkinson's disease[ICD9: 332.0] Celestina Islas MD, [facility] CPT-4: 20423 09/28/2014 ([id number]) Patient admitted to the hospital from clinic (NO CHARGE) Diagnosis: Back pain[ICD9: 724.5] Diagnosis: EDEMA[ICD9: 782.3] Diagnosis: MALAISE AND FATIGUE[ICD9: 780.79] Diagnosis: Parkinson's disease[ICD9: 332.0] Diagnosis: ESSENTIAL HYPERTENSION[ICD9: 401.9] Diagnosis: Cellulitis[ICD9: 682.9] Diagnosis: Hip pain[ICD9: 719.45] Celestina Islas MD, [facility] CPT-4: 65828W 07/19/2014 ([id number]) 19477 EST. PATIENT, LEVEL IV Diagnosis: DM W/O COMPLICATION TYPE II, UNCONTROLLED[ICD9: 250.02] Diagnosis: Back pain[ICD9: 724.5] Diagnosis: EDEMA[ICD9: 782.3] Diagnosis: Parkinson's disease[ICD9: 332.0] Celestina Islas MD, [facility] CPT-4: 70942 07/12/2014 ([id number]) 99693 EST. PATIENT, LEVEL IV Diagnosis: EDEMA[ICD9: 782.3] Diagnosis: Chronic osteoarthritis[ICD9: 715.90] Diagnosis: Bilateral arm weakness[ICD9: 729.89] Diagnosis: Parkinson's disease[ICD9: 332.0] Diagnosis: Back pain[ICD9: 724.5] Celestina Islas MD, [facility] CPT-4: 00207 05/03/2014 ([id number]) 67746 EST. PATIENT, LEVEL IV Diagnosis: DM W/O COMPLICATION TYPE II, UNCONTROLLED[ICD9: 250.02] Diagnosis: ESSENTIAL HYPERTENSION[ICD9: 401.9] Diagnosis: EDEMA[ICD9: 782.3] Diagnosis: MALAISE AND FATIGUE[ICD9: 780.79] Celestina Islas MD, [facility] CPT-4: 54455 03/31/2014 ([id number]) OFFICE/OUTPATIENT VISIT NEW Diagnosis: ESSENTIAL HYPERTENSION[ICD9: 401.9] Diagnosis: DM W/O COMPLICATION TYPE II, UNCONTROLLED[ICD9: 250.02] Diagnosis: OBESITY[ICD9: 278.00] Diagnosis: EDEMA[ICD9: 782.3] Diagnosis: MALAISE AND FATIGUE[ICD9: 780.79] Diagnosis: Restless leg[ICD9: 333.94] Celestina Islas MD, [facility] CPT- 4: 54250 03/18/2014 Plan of Care Planned Activity Notes [...] or concerns. 01/09/2017 App[facility]ment[facility] [phone] [facility] [place] ([facility] min) Complex 01/09/2017 Patient Education: Patient Medication Summary Completed [...] of over-medication. 09/27/2016 App[facility]ment[phone] [phone] [place] (30 min) Complex 09/27/2016 Patient Education: Patient [...] peripheral edema. 07/29/2016 Appointment: Tanvi Wiggins WPtel: [phone] [phone] (30 min) Complex 07/29/2016 Patient Education: Patient Medication Summary Completed 07/29/2016 Patient Education: Obesity Completed 07/29/2016 Visit Plan: Left hip pain-recent fall-ER f/u-pain improving -no changes in treatment at this time. 06/28/2016 Appointment: Amee Esteves WPtel: [phone] [phone] [place] (30 min) Complex 06/28/2016 Patient Education: Patient [...] with lasix. 03/26/2016 Appointment: Celestina Islas WPtel: [phone] [phone] (15 min) Moderate 03/26/2016 Patient Education: Patient Medication Summary Completed 03/26/2016 Care Plan: COMPLETE CBC AUTOMATED LOINC : 16587-6 Pending 03/26/2016 Care Plan: MICROALBUMIN QUANTITATIVE LOINC : 81842-5 Pending 03/26/2016 Visit Plan: Left flank pain/UTI - pt with positive urinalysis - culture sent if appropriate. Antibiotic electronically prescribed to pt's pharmacy of choice. Pt to call if symptoms do not improve. 03/07/2016 Appointment: Tanvi Wiggins WPtel: [phone] [phone] (30 min) Complex 03/07/2016 Patient Education: Patient [...] peripheral edema. 01/24/2016 Appointment: Amee Esteves WPtel: [phone] [phone] (30 min) Complex 01/24/2016 Patient Education: Patient [...] concerns. 01/16/2016 Appointment: Amee Esteves WPtel: [phone] [phone] (30 min) Complex 01/16/2016 Patient Education: Patient [...] in treatment. 12/26/2015 [phone] ([facility]) Moderate 12/26/2015 Patient Education: Patient [...] prn hydrocodone 10/12/2015 Appointment: [phone] [place] (15 min) Moderate 10/12/2015 Patient Education: Patient [...] kcl 10meq daily x 5 days Gait jwhtujglzwc-imzesrxg-UL of hips-chronic back pain-RX for wheelchair 09/08/2015 [...] 5 days 09/08/2015 Appointment: Amee Esteves WPtel: [address] [place], [place] [phone] (30 min) [facility] 09/08/2015 Patient Education: Patient Medication Summary Completed [...] 08/21/2015 Care Plan: Referral Order SNOMED-CT : [id number] Ordered 02/19/2015 Visit Plan: Parkinson's Disease - [...] - monitor symptoms. Will refer pt to [facility]. Hypertension - well controlled - continue [...] less controlled. 02/16/2015 App[facility]ment: [phone] [facility] ([facility] min) Moderate 02/16/2015 Patient Education: Patient [...] Care Plan: COMPLETE CBC AUTOMATED LOINC : 04783-0 Ordered 12/09/2014 Visit Plan: Hypertension - well [...] glucose control. 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 dm - resume home medications htn - resume home medications. 07/19/2014 Appointment: [phone] [phone] [facility] 07/19/2014 Patient Education: Patient Medication Summary Completed [...] report. 07/12/2014 Appointment: [phone] [phone] Follow [facility] 07/12/2014 Patient Education: Patient Medication [...] chair. 05/03/2014 App[facility]ment[phone] Follow [facility] 05/03/2014 Patient Education: Patient Medication [...] edema. 03/31/2014 App[facility]ment: [phone] [facility] Follow [facility] 03/31/2014 Patient Education: Patient Medication [...] friday and friday03/18/2014 Appointment: Celestina Islas WPtel[facility] New [facility] 03/18/2014 Patient Education: Patient Medication [...] kcl 10meq daily x 5 days Gait lwaxtptbgks-snnrrwuj-WW of hips-chronic back pain-RX for wheelchair . 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 dm - resume home medications htn - [...] - monitor symptoms. Will refer pt to [facility]. Hypertension - well controlled - continue [...]
--- OUTSIDE RECORDS SUMMARY | 2017-07-29 19:31 | XMS REPORT | CCD ---
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 Name Role Phone PP Unavailable CCM Unavailable Summary Purpose Interface Exchange Insurance Providers Payer name Policy type / Coverage type Covered democrat ID Effective Begin Date Effective End Date WPS Medicare Part B Medicare Part B [id number] Unknown Unknown FOR LIFE WPS Medicare Part B [id number] Unknown Unknown Family history Mother Diagnosis Age At Onset No Family Disease Entered N/A Social History Social History Element Codes Description Effective Dates Living arrangements Unknown Assisted Living VCV 11/08/2015 Education level Unknown College Graduate 10/12/2015 Marital status Unknown 03/18/2014 Number of children Unknown 5 03/18/[address]: 342348840 Never smoker 03/18/[address]: 366347253 Never drinks alcohol 03/18/2014 Allergies, Adverse Reactions, [...] Date Stop Date Status Fill Instructions Duragesic 12 mcg/hr transdermal patch RxNorm: 249422 1 Patch TD Q72H 05/23/2017 06/21/2017 Active Aleve 220 mg tablet RxNorm: 140958 Tablet(s) TAKE ONE TABLET BY MOUTH TWICE DAILY 05/12/2017 09/08/2017 Active 05/13/2016 8:39:57 AM Lantus 100 unit/mL subcutaneous solution RxNorm: 617570 INJECT 30 UNITS SUBCUTANEOUSLY DAILY 05/05/20172018 Active 05/05/2017 11:15:06 AM Augmentin 500 mg-125 mg tablet RxNorm: 643278 1 Tablet(s) PO TID 05/02/2017 05/01/2017 Inactive Augmentin 500 mg-125 mg tablet RxNorm: 406849 1 Tablet(s) PO TID 05/02/2017 05/08/2017 Inactive Vesicare 5 mg tablet RxNorm: 106483 1 Tablet(s) PO daily 201608/21/2017 Active gabapentin 100 mg capsule RxNorm: 393094 TAKE 1 CAPSULE BY MOUTH DAILY 04/24/2017 10/20/2017 Active Generic For:NEURONTIN 100 MG CAPSULE 04/24/2017 12:21:48 PM Duragesic 25 mcg/hr transdermal patch RxNorm: 788732 1 Patch TD Q72H 04/22/2017 05/21/2017 Inactive Duragesic 12 mcg/hr transdermal patch RxNorm: 161023 1 Patch TD Q72H 04/22/2017 05/21/2017 Inactive capsaicin 0.025 % topical cream RxNorm: 949513 APPLY TOPICALLY FOUR TIMES DAILY 04/10/2017 07/26/2017 Active 04/10/2017 11:05:24 AM N O T I C E Last quantity doesn't match original quantity Duragesic 12 mcg/hr transdermal patch RxNorm: 355623 1 Patch TD Q72H 03/24/2017 04/21/2017 Inactive Duragesic 25 mcg/hr transdermal patch RxNorm: 449645 1 Patch TD Q72H 03/24/2017 04/21/2017 Inactive Duragesic 12 mcg/hr transdermal patch RxNorm: 985077 1 Patch TD Q72H 02/20/2017 03/21/2017 Inactive Voltaren 1 % topical gel RxNorm: 717317 APPLY 4 GRAMS TO LOWER BACK/HIPS FOUR TIMES DAILY 02/13/2017 03/26/2017 Inactive Generic For:VOLTAREN GEL 1% 02/12/2017 9:20:40 AM Vesicare 5 mg tablet RxNorm: 953689 1 Tablet(s) PO daily 201605/04/2017 Inactive Vesicare 5 mg tablet RxNorm: 487550 1 Tablet(s) PO daily 201602/04/2017 Inactive Cozaar 50 mg tablet RxNorm: 347483 TAKE 1 TABLET BY MOUTH DAILY 01/31/2017 07/29/2017 Active Generic For:*COZAAR 50 MG TABLET 01/30/2017 3:58:13 PM Namenda 10 mg tablet RxNorm: 093893 TAKE 1 TABLET BY MOUTH TWICE DAILY 01/31/2017 06/29/2017 Active Generic For:NAMENDA 10MG TAB 01/30/2017 3:57:01 PM gabapentin 300 mg capsule RxNorm: 890233 TAKE 1 CAPSULE(S) BY MOUTH TWICE DAILY 01/31/2017 06/29/2017 Active Generic For:NEURONTIN 300 MG CAPSULE 01/30/2017 3:59: 00 PM trazodone 50 mg tablet RxNorm: 667539 TAKE 1 TABLET BY MOUTH DAILY 01/31/2017 07/29/2017 Active Generic For:DESYREL 50 MG TABLET 01/30/2017 3:57:33 PM Duragesic 12 mcg/hr transdermal patch RxNorm: 518965 1 Patch TD Q72H 01/23/2017 02/19/2017 Inactive Duragesic 25 mcg/hr transdermal patch RxNorm: 498616 1 Patch TD Q72H 01/21/2017 02/19/2017 Inactive Keflex 500 mg capsule RxNorm: 171176 1 Capsule(s) PO TID 201601/09/2017 Inactive Keflex 500 mg capsule RxNorm: 860751 1 Capsule(s) PO TID 201601/19/2017 Inactive Duragesic 12 mcg/hr transdermal patch RxNorm: 880039 1 Patch TD Q72H 12/27/2016 01/22/2017 Inactive Duragesic 25 mcg/hr transdermal patch RxNorm: 024837 1 Patch TD Q72H 12/03/2016 01/01/2017 Inactive Duragesic 12 mcg/hr transdermal patch RxNorm: 205637 1 Patch TD Q72H 11/21/2016 12/20/2016 Inactive Voltaren 1 % topical gel RxNorm: 280938 APPLY 4 GRAMS TO LOWER BACK/HIPS FOUR TIMES DAILY 11/14/2016 12/25/2016 Inactive Generic For:VOLTAREN GEL 1% 11/14/2016 11:44:09 AM capsaicin 0.025 % topical cream RxNorm: 736340 1 Application TOP QID 11/11/2016 04/09/2017 Inactive Lantus 100 unit/mL subcutaneous solution RxNorm: 705603 30 Unit(s) SQ daily 11/11/2016 05/04/2017 Inactive Ocuvite with Lutein 1,000 unit-200 mg-60 unit-2mg tablet RxNorm: 1 Tablet(s) PO daily 11/08/2016 06/05/2017 Active gabapentin 100 mg capsule RxNorm: 906806 TAKE 1 CAPSULE BY MOUTH DAILY 11/08/2016 04/23/2017 Inactive Generic For:NEURONTIN 100 MG CAPSULE 11/08/2016 9:16:54 AM N O T I C E Last quantity doesn't match original quantity Duragesic 25 mcg/hr transdermal patch RxNorm: 554686 1 Patch TD Q72H 11/04/2016 12/02/2016 Inactive Duragesic 12 mcg/hr transdermal patch RxNorm: 406136 1 Patch TD Q72H 10/21/2016 11/19/2016 Inactive Duragesic 25 mcg/hr transdermal patch RxNorm: 617947 1 Patch TD Q72H 10/10/2016 11/03/2016 Inactive senna 8.6 mg tablet RxNorm: 480816 Tablet(s) TAKE 2 TABLETS BY MOUTH DAILY 10/08/2016 05/05/2017 Inactive Generic For:SENOKOT TABLET 10/03/2016 9:56:42 AM 9:56:41 AM senna 8.6 mg tablet RxNorm: 501008 TAKE 2 TABLETS BY MOUTH DAILY 10/03/2016 10/07/2016 Inactive Generic For:SENOKOT TABLET 10/03/2016 9:56:42 AM 10/03/2016 9:56: 41 AM Duragesic 12 mcg/hr transdermal patch RxNorm: 378890 1 Patch TD Q72H 09/25/2016 10/20/2016 Inactive mecobalamin (vitamin B12) 5,000 mcg disintegrating tablet RxNorm: 3708273 1 Tablet (s) PO daily 09/13/2016 08/08/2017 Active gabapentin 300 mg capsule RxNorm: 028033 1 Capsule(s) PO BID 01/30/2017 Inactive Namenda 10 mg tablet RxNorm: 618308 TAKE 1 TABLET BY MOUTH TWICE DAILY 09/13/2016 01/30/2017 Inactive Generic For:NAMENDA 10MG TAB 09/13/2016 2:21:26 PM N O T I C E Last quantity doesn't match original quantity trazodone 50 mg tablet RxNorm: 614455 TAKE 1 TABLET BY MOUTH DAILY 09/13/2016 01/30/2017 Inactive Generic For:DESYREL 50 MG TABLET 09/13/2016 2:21:21 PM N O T I C E Last quantity doesn't match original quantity Cozaar 50 mg tablet RxNorm: 223459 TAKE 1 TABLET BY MOUTH DAILY 09/13/2016 01/30/2017 Inactive Generic For:*COZAAR 50 MG TABLET 09/13/2016 2:21:15 PM N O T I C E Last quantity doesn't match original quantity Duragesic 25 mcg/hr transdermal patch RxNorm: 522552 1 Patch TD Q72H 09/09/2016 10/08/2016 Inactive Voltaren 1 % topical gel RxNorm: 160845 4 Gram(s) TOP to lower back/hips QID 09/02/2016 11/13/2016 Inactive Duragesic 12 mcg/hr transdermal patch RxNorm: 126115 1 Patch TD Q72H 08/21/2016 09/19/2016 Inactive Myrbetriq 50 mg tablet,extended release RxNorm: 3807542 TAKE 1 TABLET BY MOUTH DAILY 08/15/2016 03/12/2017 Inactive 08/15/2016 1:38:02 PM N O T I C E Last quantity doesn't match original quantity gabapentin 100 mg capsule RxNorm: 152212 TAKE 1 CAPSULE BY MOUTH DAILY 08/15/2016 11/07/2016 Inactive Generic For:NEURONTIN 100 MG CAPSULE 08/15/2016 1:37:55 PM N O T I C E Last quantity doesn't match original quantity hydrocodone 5 mg-acetaminophen 325 mg tablet RxNorm: 176817 1 Tablet(s) PO Q4H as needed 08/08/2016 09/06/2016 Inactive Keflex 500 mg capsule RxNorm: 856019 1 Capsule(s) PO TID 201608/04/2016 Inactive Duragesic 12 mcg/hr transdermal patch RxNorm: 521023 1 Patch TD Q72H 07/24/2016 08/20/2016 Inactive Mirapex 1 mg tablet RxNorm: 164948 TAKE 1 TABLET BY MOUTH THREE TIMES DAILY 07/17/2016 10/14/2016 Inactive Generic For:MIRAPEX 1MG TAB BOEH 07/17/2016 10:01: 58 AM carbidopa 25 mg-levodopa 100 mg tablet RxNorm: 602348 TAKE 2 TABLETS BY MOUTH FOUR TIMES DAILY 07/17/2016 10/14/2016 Inactive Generic For:SINEMET-25/100 TABLET 07/17/2016 10:02:12 AM Duragesic 25 mcg/hr transdermal patch RxNorm: 350447 1 Patch TD q72 hours 07/15/2016 08/13/2016 Inactive Voltaren 1 % topical gel RxNorm: 690300 4 Gram(s) TOP to lower back/hips QID 07/11/2016 09/01/2016 Inactive capsaicin 0.025 % topical cream RxNorm: 617661 1 Application TOP QID 07/05/2016 11/10/2016 Inactive Refresh Tears 0.5 % eye drops RxNorm: 7068381 1 Drop(s) OPH daily as needed for dry eyes 06/28/2016 No Stop Date Active Duragesic 12 mcg/hr transdermal patch RxNorm: 589894 1 TD q72 hours 06/27/2016 07/23/2016 Inactive Vitamin D2 50,000 unit capsule RxNorm: 366241 TAKE 1 CAPSULE BY MOUTH WEEKLY 06/21/2016 07/18/2016 Inactive Generic For:DRISDOL 54172 UNITS CAP 06/18/2016 4:31: 30 PM Mirapex 1 mg tablet RxNorm: 257190 TAKE 1 TABLET BY MOUTH THREE TIMES DAILY 06/19/2016 07/16/2016 Inactive Generic For:MIRAPEX 1MG TAB [facility] 06/18/2016 4:32: 01 PM N O T I C E Last quantity doesn't match original quantity Cozaar 50 mg tablet RxNorm: 666032 TAKE 1 TABLET BY MOUTH DAILY 06/19/2016 09/12/2016 Inactive Generic For:*COZAAR 50 MG TABLET N O T I C E Last quantity doesn't match original quantity carbidopa 25 mg-levodopa 100 mg tablet RxNorm: 127939 TAKE 2 TABLETS BY MOUTH FOUR TIMES DAILY 06/19/2016 07/16/2016 Inactive Generic For:SINEMET-25/100 TABLET N O T I C E Last quantity doesn't match original quantity Namenda 10 mg tablet RxNorm: 735630 TAKE 1 TABLET BY MOUTH TWICE DAILY 06/19/2016 09/12/2016 Inactive Generic For:NAMENDA 10MG TAB 06/18/2016 4:32:09 PM N O T I C E Last quantity doesn't match original quantity trazodone 50 mg tablet RxNorm: 441115 TAKE 1 TABLET BY MOUTH DAILY 06/19/2016 09/12/2016 Inactive Generic For:DESYREL 50 MG TABLET N O T I C E Last quantity doesn't match original quantity Duragesic 25 mcg/hr transdermal patch RxNorm: 320860 1 Patch TD q72 hours 06/12/2016 07/11/2016 Inactive Aleve 220 mg tablet RxNorm: 726060 Tablet(s) TAKE ONE TABLET BY MOUTH TWICE DAILY 05/27/2016 09/23/2016 Inactive 05/13/2016 8:39:57 AM Duragesic 12 mcg/hr transdermal patch RxNorm: 251444 1 TD q72 hours 05/27/2016 06/25/2016 Inactive gabapentin 300 mg capsule RxNorm: 354105 1 Capsule(s) PO BID 05/23/2016 Inactive Lantus 100 unit/mL subcutaneous solution RxNorm: 687343 30 Unit(s) SQ daily 05/24/2016 05/23/2016 Inactive gabapentin 300 mg capsule RxNorm: 174406 1 Capsule(s) PO BID 09/12/2016 Inactive Lantus 100 unit/mL subcutaneous solution RxNorm: 518908 30 Unit(s) SQ daily 05/24/2016 11/10/2016 Inactive carbidopa 25 mg-levodopa 100 mg tablet RxNorm: 931289 TAKE 2 TABLETS BY MOUTH FOUR TIMES DAILY 05/22/2016 06/18/2016 Inactive Generic For:SINEMET-25/100 TABLET 05/22/2016 9:39:54 AM Namenda 10 mg tablet RxNorm: 662962 TAKE 1 TABLET BY MOUTH TWICE DAILY 05/22/2016 06/18/2016 Inactive Generic For:NAMENDA 10MG TAB 05/22/2016 9:39:26 AM mecobalamin (vitamin B12) 5,000 mcg disintegrating tablet RxNorm: 7080942 1 Tablet (s) PO daily 05/22/2016 09/12/2016 Inactive Cozaar 50 mg tablet RxNorm: 270674 TAKE 1 TABLET BY MOUTH DAILY 05/22/2016 06/18/2016 Inactive Generic For:*COZAAR 50 MG TABLET 05/22/2016 9:39:36 AM Mirapex 1 mg tablet RxNorm: 826390 TAKE 1 TABLET BY MOUTH THREE TIMES DAILY 05/22/2016 06/18/2016 Inactive Generic For:MIRAPEX 1MG TAB BOEH 05/22/2016 9:39: 17 AM trazodone 50 mg tablet RxNorm: 290567 TAKE 1 TABLET BY MOUTH DAILY 05/22/2016 06/18/2016 Inactive Generic For:DESYREL 50 MG TABLET 05/22/2016 9:39:07 AM Ocuvite with Lutein 1,000 unit-200 mg-60 unit-2mg tablet RxNorm: 1 Tablet(s) PO daily 05/21/2016 05/20/2016 Inactive gabapentin 100 mg capsule RxNorm: 060419 TAKE 1 CAPSULE BY MOUTH DAILY 05/21/2016 08/14/2016 Inactive Generic For:NEURONTIN 100 MG CAPSULE 05/21/2016 2:57:16 PM Myrbetriq 50 mg tablet,extended release RxNorm: 5013990 TAKE 1 TABLET BY MOUTH DAILY 05/21/2016 08/15/2016 Inactive 05/21/2016 2:59:11 PM Ocuvite with Lutein 1,000 unit-200 mg-60 unit-2mg tablet RxNorm: 1 Tablet(s) PO daily 05/21/2016 11/07/2016 Inactive Aleve 220 mg tablet RxNorm: 201617 TAKE ONE TABLET BY MOUTH TWICE DAILY 05/14/2016 05/26/2016 Inactive 05/13/2016 8:39:57 AM Duragesic 25 mcg/hr transdermal patch RxNorm: 114023 1 Patch TD q72 hours 05/14/2016 06/11/2016 Inactive Duragesic 12 mcg/hr transdermal patch RxNorm: 178179 1 TD q72 hours 04/24/2016 05/23/2016 Inactive capsaicin 0.025 % topical cream RxNorm: 233839 1 Application TOP QID 04/16/2016 07/04/2016 Inactive Duragesic 12 mcg/hr transdermal patch RxNorm: 120232 1 TD q72 hours 04/10/2016 04/23/2016 Inactive Duragesic 25 mcg/hr transdermal patch RxNorm: 902298 1 TD q72 hours 04/10/2016 05/09/2016 Inactive Cipro 500 mg tablet RxNorm: 815505 1 Tablet(s) PO BID 201504/13/2016 Inactive hydrocodone 5 mg-acetaminophen 325 mg tablet RxNorm: 450109 1 Tablet(s) PO Q4H as needed 03/20/2016 04/18/2016 Inactive Duragesic 12 mcg/hr transdermal patch RxNorm: 082406 1 TD q72 hours 03/20/2016 04/09/2016 Inactive Duragesic 25 mcg/hr transdermal patch RxNorm: 844896 1 TD q72 hours 03/15/2016 04/09/2016 Inactive hydrocodone 5 mg-acetaminophen 325 mg tablet RxNorm: 956214 1 Tablet(s) PO Q4H as needed 03/08/2016 03/19/2016 Inactive Cipro 500 mg tablet RxNorm: 059564 1 Tablet(s) PO BID 201503/06/2016 Inactive Cipro 500 mg tablet RxNorm: 523481 1 Tablet(s) PO BID 201503/13/2016 Inactive Duragesic 12 mcg/hr transdermal patch RxNorm: 899759 1 TD q72 hours 02/27/2016 03/19/2016 Inactive Duragesic 12 mcg/hr transdermal patch RxNorm: 818137 1 TD q72 hours 01/29/2016 02/26/2016 Inactive [SAVINGS FOR NON-COVERED DRUGS -- BIN:156551, PCN: ASPROD1, Group : XXXXX, ID# [id number], Questions: . THIS IS NOT INSURANCE.] Lasix 20 mg tablet RxNorm: 556422 2 Tablet(s) PO daily 201501/28/2016 Inactive potassium chloride ER 10 mEq tablet,extended release RxNorm: 455101 2 Tablet(s) PO daily to take while taking the lasix 01/24/2016 01/28/2016 Inactive Duragesic 25 mcg/hr transdermal patch RxNorm: 200896 1 TD q72 hours 01/16/2016 02/14/2016 Inactive Duragesic 25 mcg/hr transdermal patch RxNorm: 663245 1 TD q72 hours APPLY WITH DURAGESIC 12MCG 1 Q 72 01/03/20162015 Inactive [SAVINGS FOR NON-COVERED DRUGS -- BIN:021500, PCN: ASPROD1, Group: XXXXX, ID# [id number], Questions: [phone]. THIS IS NOT INSURANCE.] hydrocodone 5 mg-acetaminophen 325 mg tablet RxNorm: 126983 1 Tablet(s) PO Q4H as needed 01/02/2016 03/07/2016 Inactive [SAVINGS FOR NON-COVERED DRUGS -- BIN:335377 , PCN: ASPROD1, Group: XXXXX, ID# [id number], Questions: . THIS IS NOT INSURANCE.] Myrbetriq 50 mg tablet,extended release RxNorm: 5297732 1 Tablet(s) PO daily 12/28/2015 04/25/2016 Inactive PA approved Duragesic 25 mcg/hr transdermal patch RxNorm: 751054 1 TD q72 hours 12/18/2015 01/02/2016 Inactive [SAVINGS FOR NON-COVERED DRUGS -- BIN:772555, PCN: ASPROD1, Group : XXXXX, ID# [id number], Questions: . THIS IS NOT INSURANCE.] Duragesic 25 mcg/hr transdermal patch RxNorm: 600021 1 TD q72 hours 11/17/2015 12/17/2015 Inactive [SAVINGS FOR NON-COVERED DRUGS -- BIN:659675, PCN: ASPROD1, Group : XXXXX, ID# [id number], Questions: . THIS IS NOT INSURANCE.] Myrbetriq 50 mg tablet,extended release RxNorm: 9217512 1 Tablet(s) PO daily 10/31/2015 12/27/2015 Inactive increase dose Myrbetriq 25 mg tablet,extended release RxNorm: 3939154 1 Tablet(s) PO daily 10/24/2015 10/30/2015 Inactive send PA form if required Myrbetriq 25 mg tablet,extended release RxNorm: 3810945 1 Tablet(s) PO daily 10/24/2015 10/23/2015 Inactive send PA form if required Duragesic 25 mcg/hr transdermal patch RxNorm: 137157 1 TD q72 hours 10/18/2015 11/16/2015 Inactive [SAVINGS FOR NON-COVERED DRUGS -- BIN:200285, PCN: ASPROD1, Group : XXXXX, ID# XXXXXXX, Questions: . THIS IS NOT INSURANCE.] Namenda 10 mg tablet RxNorm: 816061 1 Tablet(s) PO BID 201505/21/2016 Inactive Lantus Solostar 100 unit/mL (3 mL) subcutaneous insulin pen RxNorm: 927604 30 Unit(s) SQ daily (may be adjusted for further glucose control) 10/12/2015 05/23/2016 Inactive [SAVINGS FOR UNINSURED PATIENTS -- BIN:723290, PCN: ASPROD1, Group: AME08, ID# [id number], Process claim through [employer], for questions: [phone]. THIS IS NOT INSURANCE.] Mirapex 1 mg tablet RxNorm: 377881 1 Tablet(s) PO TID 201505/21/2016 Inactive Duragesic 25 mcg/hr transdermal patch RxNorm: 756476 1 TD q72 hours 09/18/2015 10/17/2015 Inactive [SAVINGS FOR NON-COVERED DRUGS -- BIN:202651, PCN: ASPROD1, Group : XXXXX, ID# XXXXXXX, Questions: . THIS IS NOT INSURANCE.] Sinemet CR 50 mg-200 mg tablet,extended release RxNorm: 826417 2 Tablet(s) PO QID 08/21/2015 10/12/2015 Inactive Duragesic 25 mcg/hr transdermal patch RxNorm: 577752 1 TD q72 hours 08/21/2015 09/17/2015 Inactive [SAVINGS FOR NON-COVERED DRUGS -- BIN:361603, PCN: ASPROD1, Group : XXXXX, ID# XXXXXXX, Questions: . THIS IS NOT INSURANCE.] Namenda XR 7 mg-14 mg-21 mg-28 mg capsule,sprinkle,ER 24hr, dose pack RxNorm: 605894 Capsule(s) PO 08/21/2015 08/21/2015 Inactive gabapentin 100 mg capsule RxNorm: 198905 1 Capsule(s) PO once daily at noon and 300mg BID 08/21/2015 05/20/2016 Inactive [SAVINGS FOR NON-COVERED DRUGS -- BIN: 270856, PCN: ASPROD1, Group: XXXXX, ID# XXXXXXX, Questions: . THIS IS NOT INSURANCE.] Mirapex 1 mg tablet RxNorm: 913748 1 Tablet(s) PO QPM 201509/19/2015 Inactive Lantus Solostar 100 unit/mL (3 mL) subcutaneous insulin pen RxNorm: 366409 25 Unit(s) SQ daily (may be adjusted for further glucose control) 08/21/2015 10/11/2015 Inactive [SAVINGS FOR UNINSURED PATIENTS -- BIN:606254, PCN: ASPROD1, Group: AME08, ID# [id number], Process claim through [employer], for questions: [phone]. THIS IS NOT INSURANCE.] Duragesic 12 mcg/hr transdermal patch RxNorm: 446596 1 TD q72 hours 08/04/2015 08/20/2015 Inactive [SAVINGS FOR NON-COVERED DRUGS -- BIN:368811, PCN: ASPROD1, Group : XXXXX, ID# XXXXXXX, Questions: . THIS IS NOT INSURANCE.] Augmentin 500 mg-125 mg tablet RxNorm: 895705 1 Tablet(s) PO TID 07/27/2015 07/26/2015 Inactive Augmentin 500 mg-125 mg tablet RxNorm: 401902 1 Tablet(s) PO TID 07/27/2015 08/02/2015 Inactive Cipro 500 mg tablet RxNorm: 562387 1 Tablet(s) PO BID 201507/06/2015 Inactive Cipro 500 mg tablet RxNorm: 775435 1 Tablet(s) PO BID 201510/11/2015 Inactive Duragesic 12 mcg/hr transdermal patch RxNorm: 361840 1 TD q72 hours 07/04/2015 08/03/2015 Inactive [SAVINGS FOR NON-COVERED DRUGS -- BIN:500296, PCN: ASPROD1, Group : XXXXX, ID# XXXXXXX, Questions: . THIS IS NOT INSURANCE.] hydrocodone 5 mg-acetaminophen 325 mg tablet RxNorm: 305645 1 Tablet(s) PO Q4H as needed 07/03/2015 01/01/2016 Inactive [SAVINGS FOR NON-COVERED DRUGS -- BIN:614225 , PCN: ASPROD1, Group: XXXXX, ID# XXXXXXX, Questions: . THIS IS NOT INSURANCE.] Duragesic 12 mcg/hr transdermal patch RxNorm: 726025 1 TD q72 hours 06/05/2015 07/03/2015 Inactive [SAVINGS FOR NON-COVERED DRUGS -- BIN:540138, PCN: ASPROD1, Group : XXXXX, ID# XXXXXXX, Questions: . THIS IS NOT INSURANCE.] Duragesic 12 mcg/hr transdermal patch RxNorm: 973452 1 TD q72 hours 05/09/2015 06/04/2015 Inactive [SAVINGS FOR NON-COVERED DRUGS -- BIN:935423, PCN: ASPROD1, Group : XXXXX, ID# XXXXXXX, Questions: . THIS IS NOT INSURANCE.] hydrocodone 5 mg-acetaminophen 325 mg tablet RxNorm: 177294 1 Tablet(s) PO Q4H as needed 04/27/2015 07/02/2015 Inactive [SAVINGS FOR NON-COVERED DRUGS -- BIN:757766 , PCN: ASPROD1, Group: XXXXX, ID# XXXXXXX, Questions: . THIS IS NOT INSURANCE.] Duragesic 12 mcg/hr transdermal patch RxNorm: 891229 1 TD q72 hours 04/06/2015 05/08/2015 Inactive [SAVINGS FOR NON-COVERED DRUGS -- BIN:760341, PCN: ASPROD1, Group : XXXXX, ID# XXXXXXX, Questions: . THIS IS NOT INSURANCE.] Duragesic 12 mcg/hr transdermal patch RxNorm: 186152 1 TD q72 hours 03/07/2015 04/05/2015 Inactive [SAVINGS FOR NON-COVERED DRUGS -- BIN:571604, PCN: ASPROD1, Group : XXXXX, ID# XXXXXXX, Questions: . THIS IS NOT INSURANCE.] hydrocodone 5 mg-acetaminophen 325 mg tablet RxNorm: 278665 1 Tablet(s) PO Q4H as needed 02/16/2015 04/26/2015 Inactive [SAVINGS FOR NON-COVERED DRUGS -- BIN:461366 , PCN: ASPROD1, Group: XXXXX, ID# XXXXXXX, Questions: . THIS IS NOT INSURANCE.] Mirapex 0.25 mg tablet RxNorm: 082153 1 Tablet(s) PO QPM 201403/17/2015 Inactive Duragesic 12 mcg/hr transdermal patch RxNorm: 445476 1 TD q72 hours 01/31/2015 03/06/2015 Inactive [SAVINGS FOR NON-COVERED DRUGS -- BIN:453902, PCN: ASPROD1, Group : XXXXX, ID# XXXXXXX, Questions: . THIS IS NOT INSURANCE.] Duragesic 12 mcg/hr transdermal patch RxNorm: 356184 1 TD q72 hours 01/03/2015 01/30/2015 Inactive [SAVINGS FOR NON-COVERED DRUGS -- BIN:988652, PCN: ASPROD1, Group : XXXXX, ID# XXXXXXX, Questions: . THIS IS NOT INSURANCE.] hydrocodone 5 mg-acetaminophen 325 mg tablet RxNorm: 118712 1 Tablet(s) PO Q4H as needed 12/21/2014 02/15/2015 Inactive [SAVINGS FOR NON-COVERED DRUGS -- BIN:990728 , PCN: ASPROD1, Group: XXXXX, ID# XXXXXXX, Questions: . THIS IS NOT INSURANCE.] Duragesic 12 mcg/hr transdermal patch RxNorm: 549089 1 TD q72 hours 12/14/2014 01/02/2015 Inactive [SAVINGS FOR NON-COVERED DRUGS -- BIN:034477, PCN: ASPROD1, Group : XXXXX, ID# XXXXXXX, Questions: . THIS IS NOT INSURANCE.] Duragesic 12 mcg/hr transdermal patch RxNorm: 553528 1 TD q72 hours 11/07/2014 12/13/2014 Inactive [SAVINGS FOR NON-COVERED DRUGS -- BIN:947188, PCN: ASPROD1, Group : XXXXX, ID# XXXXXXX, Questions: . THIS IS NOT INSURANCE.] Vitamin D2 50,000 unit capsule RxNorm: 927910 TAKE 1 CAPSULE WEEKLY (AFTER FINISHED WITH VIT D 27703B FOR THE 12 WEEKS, START OTC VITAMIN D 2000 UNITS DAILY) 10/24/2014 06/20/2016 Inactive Duragesic 12 mcg/hr transdermal patch RxNorm: 314362 1 TD q72 hours 10/11/2014 11/06/2014 Inactive [SAVINGS FOR NON-COVERED DRUGS -- BIN:429964, PCN: ASPROD1, Group : XXXXX, ID# XXXXXXX, Questions: . THIS IS NOT INSURANCE.] Sinemet CR 50 mg-200 mg tablet,extended release RxNorm: 579431 1 Tablet(s) PO BID 10/05/2014 05/02/2015 Inactive Lantus Solostar 100 unit/mL (3 mL) subcutaneous insulin pen RxNorm: 691463 15 Unit(s) SQ daily (may be adjusted for further glucose control) 09/28/2014 08/20/2015 Inactive [SAVINGS FOR UNINSURED PATIENTS -- BIN:578962, PCN: ASPROD1, Group: AME08, ID# [id number], Process claim through [employer], for questions: [phone]. THIS IS NOT INSURANCE.] Duragesic 12 mcg/hr transdermal patch RxNorm: 920311 1 TD q72 hours 09/26/2014 10/10/2014 Inactive [SAVINGS FOR NON-COVERED DRUGS -- BIN:636055, PCN: ASPROD1, Group : XXXXX, ID# XXXXXXX, Questions: . THIS IS NOT INSURANCE.] hydrocodone 5 mg-acetaminophen 325 mg tablet RxNorm: 006450 1 Tablet(s) PO Q4H as needed 09/23/2014 12/20/2014 Inactive [SAVINGS FOR NON-COVERED DRUGS -- BIN:068357 , PCN: ASPROD1, Group: XXXXX, ID# XXXXXXX, Questions: . THIS IS NOT INSURANCE.] Duragesic 12 mcg/hr transdermal patch RxNorm: 628706 1 TD q72 hours 09/09/2014 09/25/2014 Inactive [SAVINGS FOR NON-COVERED DRUGS -- BIN:429364, PCN: ASPROD1, Group : XXXXX, ID# XXXXXXX, Questions: . THIS IS NOT INSURANCE.] carbidopa 25 mg-levodopa 100 mg tablet RxNorm: 865609 2 in the am 1 at noon and 1 katie Tablet(s) PO BID 08/31/20142014 Inactive [SAVINGS FOR NON-COVERED DRUGS -- BIN:169110, PCN: ASPROD1, Group: XXXXX, ID# XXXXXXX, Questions: [phone]. THIS IS NOT INSURANCE.] Vitamin D2 50,000 unit capsule RxNorm: 779182 1 CAPSULE(S) PO WEEKLY X 12 WEEKS 08/15/2014 10/23/2014 Inactive hydrocodone 5 mg-acetaminophen 325 mg tablet RxNorm: 059566 1 Tablet(s) PO Q4H as needed 08/12/2014 09/22/2014 Inactive [SAVINGS FOR NON-COVERED DRUGS -- BIN:165035 , PCN: ASPROD1, Group: XXXXX, ID# [id number], Questions: . THIS IS NOT INSURANCE.] hydrocodone 10 mg-acetaminophen 325 mg tablet RxNorm: 105860 1/2 to 1 Tablet(s) PO q 4 hours prn for uncontrolled pain 07/14/2014 08/11/2014 Inactive [SAVINGS FOR NON-COVERED DRUGS -- BIN:[id number], PCN: ASPROD1, Group: XXXXX, ID# [id number], Questions: . THIS IS NOT INSURANCE.] gabapentin 100 mg capsule RxNorm: 403603 1 Capsule(s) PO nightly x1week, then twice daily x 1 week, then tihree times daily thereafter 08/20/2015 Inactive [SAVINGS FOR NON-COVERED DRUGS -- BIN:153234, PCN: ASPROD1, Group: XXXXX, ID# [id number], Questions: . THIS IS NOT INSURANCE.] Bactrim DS 800 mg-160 mg tablet RxNorm: 180893 1 Tablet(s) PO BID 07/01/2014 07/07/2014 Inactive [SAVINGS FOR NON-COVERED DRUGS -- BIN:402675, PCN: ASPROD1, Group: XXXXX, ID# [id number], Questions: . THIS IS NOT INSURANCE.] Bactrim DS 800 mg-160 mg tablet RxNorm: 432432 1 Tablet(s) PO BID 07/01/2014 06/30/2014 Inactive Vitamin D2 50,000 unit capsule RxNorm: 914864 1 Capsule(s) PO weekly x 12 weeks 06/07/2014 08/14/2014 Inactive after patient is finished with vit D 66539u for the 12 weeks, she is to start on OTC vitamin D 2000 units daily Keflex 500 mg capsule RxNorm: 105328 1 Capsule(s) PO BID 201405/29/2014 Inactive carbidopa 25 mg-levodopa 100 mg tablet RxNorm: 957782 1 Tablet(s) PO BID 05/30/2014 08/30/2014 Inactive [SAVINGS FOR UNINSURED PATIENTS -- BIN:671733, PCN: ASPROD1 , Group: [id number], ID# [id number], Process claim through [employer], for questions: [phone]- [phone]. THIS IS NOT INSURANCE.] Keflex 500 mg capsule RxNorm: 625423 1 Capsule(s) PO BID 201406/05/2014 Inactive [SAVINGS FOR UNINSURED PATIENTS -- BIN:569567, PCN: ASPROD1, Group: [id number], ID # [id number], Process claim through [employer], for questions: . THIS IS NOT INSURANCE.] carbidopa 25 mg-levodopa 100 mg tablet RxNorm: 803257 1 Tablet(s) PO BID 05/23/2014 05/29/2014 Inactive [SAVINGS FOR UNINSURED PATIENTS -- BIN:060162, PCN: ASPROD1 , Group: [id number], ID# [id number], Process claim through [employer], for questions: [phone]- [phone]. THIS IS NOT INSURANCE.] carbidopa 25 mg-levodopa 100 mg tablet RxNorm: 312554 1/2 Tablet(s) PO BID 05/03/2014 05/22/2014 Inactive [SAVINGS FOR UNINSURED PATIENTS -- BIN:908302, PCN: ASPROD1, Group: [id number], ID# [id number], Process claim through [employer], for questions: . THIS IS NOT INSURANCE.] pen needle, diabetic, remover & disposal unit 31 x /" RxNorm: 1 use Miscellaneous 03/31/2014 09/21/2015 Inactive [SAVINGS FOR UNINSURED PATIENTS -- BIN :401448, PCN: ASPROD1, Group: [id number], ID# [id number], Process claim through [employer], for questions: . THIS IS NOT INSURANCE.] Lantus Solostar 100 unit/mL (3 mL) subcutaneous insulin pen RxNorm: 218916 10 Unit(s) SQ daily (may be adjusted for further glucose control) 03/31/2014 09/27/2014 Inactive [SAVINGS FOR UNINSURED PATIENTS -- BIN:211617, PCN: ASPROD1, Group: [id number], ID# [id number], Process claim through [employer], for questions: [phone]. THIS IS NOT INSURANCE.] Vitamin D2 50,000 unit capsule RxNorm: 878501 1 Capsule(s) PO weekly x 12 weeks 03/22/2014 06/06/2014 Inactive after patient is finished with vit D 98184r for the 12 weeks, she is to start on OTC vitamin D 2000 units daily Vitamin D2 50,000 unit capsule RxNorm: 725739 1 Capsule(s) PO weekly x 12 weeks 03/22/2014 03/21/2014 Inactive after patient is finished with vit D 58122l for the 12 weeks, she is to start on OTC vitamin D 2000 units daily metformin 500 mg tablet RxNorm: 135634 1 Tablet(s) PO BID 03/1803/30/2014 Inactive [SAVINGS FOR UNINSURED PATIENTS -- BIN:619578, PCN: ASPROD1, Group: [id number], ID# [id number], Process claim through [employer], for questions: . THIS IS NOT INSURANCE.] Lidoderm 5 % (700 mg/patch) adhesive patch RxNorm: 6454737 1 TOP PRN for back pain. NEEDS PA IF ORDERED AGAIN No Start Date Active diclofenac sodium topical RxNorm: 3355 topical No Start Date Active Lasix 20 mg tablet RxNorm: 380664 Tablet(s) daily x 5 with k 10 daily x 5 PO No Start Date Active multivitamin tablet RxNorm: 1 Tablet(s) PO daily No Start Date Active oxybutynin chloride 5 mg tablet RxNorm: 787466 1 Tablet(s) PO daily No Start Date 03/30/2014 Inactive Sinemet CR 25 mg-100 mg tablet,extended release RxNorm: 673695 2 Tablet(s) PO QID No Start Date 06/19/2016 Inactive Namenda 5 mg tablet RxNorm: 822313 Tablet(s) PO No Start Date 10/11/2015 Inactive amlodipine 2.5 mg tablet RxNorm: 354532 1 Tablet(s) PO daily No Start Date 03/30/2014 Inactive Cozaar 50 mg tablet RxNorm: 342028 1 Tablet(s) PO daily No Start Date 05/21/2016 Inactive Voltaren 1 % topical gel RxNorm: 739191 4 Gram(s) TOP to lower back/hips QID No Start Date 07/10/2016 Inactive hydrochlorothiazide 25 mg tablet RxNorm: 108438 1 Tablet(s) PO daily No Start Date 03/30/2014 Inactive pramipexole 0.25 mg tablet RxNorm: 815787 1 Tablet(s) PO daily No Start Date 05/02/2014 Inactive simvastatin 40 mg tablet RxNorm: 803775 oral No Start Date 05/02/2014 Inactive vitamin C93-raczftc B1 oral liquid RxNorm: PO No Start Date 10/12/2015 Inactive 2000u daily Fosamax Plus D oral RxNorm: 392130 oral No Start Date 05/02/2014 Inactive Actos 45 mg tablet RxNorm: 561466 1 Tablet(s) PO daily No Start Date 03/30/2014 Inactive Duragesic 12 mcg/hr transdermal patch RxNorm: 248668 1 TD q72 hours No Start Date 09/08/2014 Inactive Vitamin D3 2,000 unit capsule RxNorm: 022634 1 Capsule(s) PO daily No Start Date 11/07/2015 Inactive mecobalamin 5,000 mcg disintegrating tablet RxNorm: 6919781 1 Tablet(s) PO daily No Start Date 05/21/2016 Inactive magnesium 250 mg tablet RxNorm: 1 Tablet(s) PO daily No Start Date 05/02/2014 Inactive Refresh Tears 0.5 % eye drops RxNorm: 8384711 1 Drop(s) OPH daily as needed for dry eyes No Start Date 06/27/2016 Inactive furosemide 40 mg tablet RxNorm: 780627 1 Tablet(s) PO daily No Start Date 05/02/2014 Inactive trazodone 50 mg tablet RxNorm: 179891 1 Tablet(s) PO QHS No Start Date 05/21/2016 Inactive glipizide 10 mg tablet RxNorm: 440399 1 Tablet(s) PO daily No Start Date 05/02/2014 Inactive hydrocodone 10 mg-acetaminophen 325 mg tablet RxNorm: 817264 oral No Start Date 07/13/2014 Inactive Refresh ophthalmic RxNorm: 648367 ophthalmic No Start Date 06/28/2016 Inactive capsaicin 0.025 % topical cream RxNorm: 448597 1 Application TOP QID No Start Date 04/15/2016 Inactive Aleve 220 mg tablet RxNorm: 791535 1 Tablet(s) PO daily as needed No Start Date 05/13/2016 Inactive senna 8.6 mg tablet RxNorm: 958171 1 Tablet(s) PO daily as needed No Start Date 10/02/2016 Inactive biotin 1000 mcg RxNorm : 1 Tablet(s) PO daily No Start Date 05/02/2014 Inactive ranitidine 150 mg capsule RxNorm: 317878 2 Capsule(s) PO daily No Start Date 05/02/2014 Inactive hydrocodone 5 mg-acetaminophen 325 mg tablet RxNorm: 262552 1 Tablet(s) PO Q4H as needed No Start Date 08/11/2014 Inactive Calcitrate-Vitamin D oral RxNorm: 1895 oral No Start Date 11/07/2015 Inactive potassium chloride RxNorm: 14560 miscellaneous No Start Date 05/02/2014 Inactive metformin 500 mg tablet RxNorm: 507737 2 Tablet(s) PO daily No Start Date 03/17/2014 Inactive aspirin 81 mg tablet RxNorm: 738322 1 Tablet(s) PO daily No Start Date 11/07/2015 Inactive Medication Administered No Medication Administered data Immunizations Vaccine Codes Date Status Pneumococcal CVX: 133 05/10/2016 completed Assessments Condition Codes Effective Dates Localized edema ICD-10: R60.0 ICD-9: 782.3 01/09/2017 Frequency of micturition ICD-10: R35.0 ICD-9: 788.41 01/09/2017 Urgency of urination ICD-10: R39.15 ICD-9: 788.63 01/09/2017 Type 2 diabetes mellitus with hyperglycemia ICD-10: E11.65 ICD-9: 250.02 09/27/2016 Essential (primary) hypertension ICD-10: I10 ICD-9: 401.9 09/27/2016 Parkinson's disease ICD-10: G20 ICD-9: 332.0 09/27/2016 Bilateral primary osteoarthritis of hip ICD-10: M16.0 ICD-9: 715.15 09/27/2016 Pain in right toe(s) ICD-10: M79.674 ICD-9: 729.5 07/29/2016 Low back pain ICD-10: M54.5 ICD-9: 724.2 07/29/2016 Pain in left hip ICD-10: M25.552 [...] unspecified hip ICD-10: M25.559 ICD-9: 719.45 02/16/2015 Dysuria ICD-9: 788.1 01/16/2015 Parkinson's disease ICD-9: 332.0 2014 ESSENTIAL HYPERTENSION ICD-9: 401.9 01/16 UTI (urinary tract infection) ICD-9: 599.0 12/09/2014 EDEMA ICD-9: 782.3 12/09/2014 DM W/O COMPLICATION TYPE II, 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 12/09/2014 DIABETES TYPE II ICD-9: 250.00 2014 MALAISE AND FATIGUE ICD-9: 780.79 2014 Hip pain ICD-9: 719.45 07/19/2014 Cellulitis ICD-9: 682.9 07/19/2014 Back pain ICD-9: 724.5 07/19/2014 Chronic osteoarthritis ICD-9: 715.90 09/2014 Bilateral [...] Item Item Code Result Date Culture Urine [id number] URINE CULTURE SEE NOTES 05/02/2017 Culture Urine [id number] Continued Results 05/02/2017 Urine Culture Ucult Complete [...] U-Com Culture to follow 04/29/2017 Culture Urine [id number] URINE CULTURE SEE NOTES 04/07/2017 Culture Urine [id number] Continued Results 04/07/2017 Urine Culture Ucult Complete [...] U-Com Culture to follow 04/04/2017 Culture Urine [id number] URINE CULTURE SEE NOTES 01/13/2017 Culture Urine [id number] Continued Results 01/13/2017 Urine Culture Ucult Complete [...] Uric A 4.5 mg/dL 07/29/2016 Comp Metabolic Pbv084 NA 134 mEq/L 06/26/2016 Comp Metabolic Brs368 K 4.8 mEq/L 06/26/2016 Comp Metabolic Blb273 CL 98 mEq/L 06/26/2016 Comp Metabolic Khy721 CO2 28.0 mEq/L 06/26/2016 Comp Metabolic Gnd973 ANION GAP 13 06/26/2016 Comp Metabolic Ctn669 GLUCOSE 270 mg/dL 06/26/2016 Comp Metabolic Jtc929 Creat 0.9 mg/dL 06/26/2016 Comp Metabolic Mod890 eGFR 68 ml/min/1.73m2 06/26/2016 Comp Metabolic Qfd955 BUN 22 mg/dL 06/26/2016 Comp Metabolic Jdz839 B/C Ratio 25.9 Ratio 06/26/2016 Comp Metabolic Nsn854 CALCIUM 9.0 mg/dL 06/26/2016 Comp Metabolic Plb331 ALK PHOS 119 U/L 06/26/2016 Comp Metabolic Uqj278 AST(SGOT) 34 U/L 06/26/2016 Comp Metabolic Ykc839 ALT(SGPT) 18 U/L 06/26/2016 Comp Metabolic Xgm098 BILI T 0.5 mg/dL 06/26/2016 Comp Metabolic Uxb151 ALBUMIN 4.1 g/dL 06/26/2016 Comp Metabolic Utl795 TPRO 6.8 g/dL 06/26/2016 Comp Metabolic Oee320 GLOB 2.7 g/dL 06/26/2016 Comp Metabolic Eoe674 A/G Ratio 1.5 Ratio 06/26/2016 Comp Metabolic Oob814 Osmo 281 mOsmo 06/26/2016 Tsh Ord6 hTSH II 1.57 uIU/mL 06/26/2016 %Hba1C Hhu090 % HbA1c 48607-4 7.6 % 06/26/2016 %Hba1C Vlt875 Gluc Ave 171 mg/dL 06/26/2016 Lipid Ord30 CHOL 225 mg/dL 06/26/2016 Lipid Ord30 HDL 49.0 mg/dl 06/26/2016 Lipid Ord30 TRIG 208 mg/dL 06/26/2016 Lipid Ord30 LDL 134 mg/dL 06/26/2016 Lipid Ord30 C/HDL 4.6 Ratio 06/26/2016 Vitamin D 25 Oh Xeq4869 VITAMIN D, 25 HYDROXY 65.10 ng/mL Culture Urine [id number] URINE CULTURE SEE NOTES 03/11/2016 Culture Urine [id number] Continued Results 03/11/2016 Urine Culture Ucult Complete [...] Ord15 CALCIUM 9.5 mg/dL 01/24/2016 Culture Urine [id number] URINE CULTURE SEE NOTES 12/29/2015 Culture Urine [id number] Continued Results 12/29/2015 Urine Culture Ucult Complete >100,000 col/ml aerobic growth sent to ref lab 12/27/2015 %Hba1C Apq640 % HbA1c 45463-8 8.3 % 12/26/2015 %Hba1C Asx026 Gluc Ave 192 mg/dL 12/26/2015 Culture Urine [id number] URINE CULTURE SEE NOTES 10/09/2015 Culture Urine [id number] Continued Results 10/09/2015 Urine Culture Ucult Complete [...] U-VOL VOLUME SUFFICIENT (10mL) 10/04/2015 Urinalysis Ord28 U-Com Culture to follow 10/04/2015 Urinalysis Ord28 U-Yeast NEGATIVE 10/04/2015 Tsh Ord6 hTSH II 1.24 uIU/mL 09/13/2015 Cbc With Differential Ord2 WBC 6.56 K/ul 09/13/2015 Cbc With Differential Ord2 RBC 4.38 M/ul 09/13/2015 Cbc With Differential Ord2 HGB 13.2 g/dl 09/13/2015 Cbc With Differential Ord2 HCT 40.8 % 09/13/2015 Cbc With Differential Ord2 Neut% 66.4 % 09/13/2015 Cbc With Differential Ord2 Lymph% 25.3 % 09/13/2015 Cbc With Differential Ord2 MCV 93.2 fl 09/13/2015 Cbc With Differential Ord2 Starke% 6.6 % 09/13/2015 Cbc With Differential Ord2 MCH 30.1 pg 09/13/2015 Cbc With Differential Ord2 MCHC 32.4 pg 09/13/2015 Cbc With Differential Ord2 Eos% 1.4 % 09/13/2015 Cbc With Differential Ord2 PLT 192 K/ul 09/13/2015 Cbc With Differential Ord2 Baso% 0.3 % 09/13/2015 Cbc With Differential Ord2 RDW 15.0 % 09/13/2015 Cbc With Differential Ord2 Neut ABS# 4.36 K/ul 09/13/2015 Cbc With Differential Ord2 Lymph ABS# 1.66 K/ul 09/13/2015 Cbc With Differential Ord2 Starke ABS# 0.4 K/ul 09/13/2015 Cbc With Differential Ord2 Eos ABS# 0.1 K/ul 09/13/2015 Cbc With Differential Ord2 Baso ABS# 0.0 K/ul 09/13/2015 Cbc With Differential Ord2 New Analyzer Notice Please note new ref ranges starting 05-10-2015 due to implemntation of new five part differential hematolgy analyzer. 09/13/2015 Comp Metabolic Pay017 NA 137 mEq/L 09/13/2015 Comp Metabolic Heq283 K 4.5 mEq/L 09/13/2015 Comp Metabolic Aae697 CL 100 mEq/L 09/13/2015 Comp Metabolic Cpo326 CO2 28.0 mEq/L 09/13/2015 Comp Metabolic Bve181 ANION GAP 14 09/13/2015 Comp Metabolic Jno912 GLUCOSE 124 mg/dL 09/13/2015 Comp Metabolic Qsq083 Creat 0.9 mg/dL 09/13/2015 Comp Metabolic Cia078 eGFR 65 ml/min/1.73m2 09/13/2015 Comp Metabolic Qkx074 BUN 20 mg/dL 09/13/2015 Comp Metabolic Pem062 B/C Ratio 22.7 Ratio 09/13/2015 Comp Metabolic Mdx351 CALCIUM 8.8 mg/dL 09/13/2015 Comp Metabolic Abq600 ALK PHOS 64 U/L 09/13/2015 Comp Metabolic Smg896 AST(SGOT) 16 U/L 09/13/2015 Comp Metabolic Qqh108 ALT(SGPT) 13 U/L 09/13/2015 Comp Metabolic Dcu140 BILI T 0.7 mg/dL 09/13/2015 Comp Metabolic Krk247 ALBUMIN 3.9 g/dL 09/13/2015 Comp Metabolic Zlk374 TPRO 6.7 g/dL 09/13/2015 Comp Metabolic Cjj050 GLOB 2.8 g/dL 09/13/2015 Comp Metabolic Prs979 A/G Ratio 1.4 Ratio 09/13/2015 Comp Metabolic Wjy013 Osmo 278 mOsmo 09/13/2015 %Hba1C Tfq542 % HbA1c 95262-6 9.1 % 09/13/2015 %Hba1C Tio774 Gluc Ave 214 mg/dL 09/13/2015 Urine Culture [...] Urinalysis Ord28 U-Yeast NEGATIVE 09/08/2015 Culture Urine [id number] URINE CULTURE SEE NOTES 03/03/2015 Culture Urine [id number] Continued Results 03/03/2015 Urine Culture Ucult Complete [...] Culture to follow 02/28/2015 Urine Culture Ucult Complete No Growth Day 2 01/19/2015 Urine Culture Ucult Preliminary No Growth Day 1 01/19/2015 Urinalysis Ord28 U-Color Yellow 01/17/2015 Urinalysis [...] to follow 01/17/2015 Vitamin D 25 Oh Mto9805 VITAMIN D, 25 HYDROXY 48.78 ng/mL Cbc With Differential Ord2 WBC 5.6 K/uL [...] With Differential Ord2 RDW 15.1 % 12/13/2014 Tsh Ord6 hTSH II 1.22 uIU/mL 12/13/2014 Comp Metabolic Gnw344 NA 135 mEq/L 12/13/2014 Comp Metabolic Uxq671 K 4.5 mEq/L 12/13/2014 Comp Metabolic Opp446 CL 101 mEq/L 12/13/2014 Comp Metabolic Pvg988 CO2 28.0 mEq/L 12/13/2014 Comp Metabolic Iti543 ANION GAP 11 12/13/2014 Comp Metabolic Qxp736 GLUCOSE 90 mg/dL 12/13/2014 Comp Metabolic Zmk778 Creat 1.1 mg/dL 12/13/2014 Comp Metabolic Zaz129 eGFR 50 ml/min/1.73m2 12/13/2014 Comp Metabolic Bjd023 BUN 19 mg/dL 12/13/2014 Comp Metabolic Gpz276 B/C Ratio 17.1 Ratio 12/13/2014 Comp Metabolic Rgu440 CALCIUM 9.3 mg/dL 12/13/2014 Comp Metabolic Zsj676 ALK PHOS 74 U/L 12/13/2014 Comp Metabolic Ium743 AST(SGOT) 16 U/L 12/13/2014 Comp Metabolic Mol944 ALT(SGPT) 3 U/L 12/13/2014 Comp Metabolic Nts032 BILI T 0.4 mg/dL 12/13/2014 Comp Metabolic Dyy282 ALBUMIN 3.7 g/dL 12/13/2014 Comp Metabolic Agw879 TPRO 6.4 g/dL 12/13/2014 Comp Metabolic Tks478 GLOB 2.7 g/dL 12/13/2014 Comp Metabolic Rld625 A/G Ratio 1.4 Ratio 12/13/2014 Comp Metabolic Phi495 Osmo 272 mOsmo 12/13/2014 %Hba1C Auq365 % HbA1c 41414-9 7.2 % 12/13/2014 %Hba1C Hih093 Gluc Ave 160 mg/dL 12/13/2014 Review of [...] to thighs bilaterally Full Exam - General 1995 Cardiovascular auscultation of heart Overall: regular rate 09/28/2014 None Full Exam - General 1994 Cardiovascular auscultation of heart Systolic murmur grade: II/ 09/28/2014 None Full Exam - General 1994 Musculoskeletal spine, ribs and pelvis Posture: kyphosis 09/28/2014 None Full Exam - General 1995 Musculoskeletal gait and station Gait: asymmetric 09/28/2014 None Full Exam - General 1995 Musculoskeletal gait and station Gait: abnormal stride [...] sounds 05/03/2014 None Full Exam - General 1995 Lymphatic neck nodes Overall: anterior cervical chain benign 05/03/2014 None Full Exam - General 1994 Lymphatic neck nodes Overall: posterior cervical chain benign 05/03/2014 None Full Exam - General 1994 Musculoskeletal spine, ribs and pelvis Posture: kyphosis 05/03/2014 None Full Exam - General 1995 Musculoskeletal head and neck Overall: head atraumatic 05/03/2014 None Full Exam - General 1994 Musculoskeletal head and neck Overall: cervical spine benign 05/03/2014 slight buffalo hump Full Exam - General 1994 Integument inspection of skin Overall: few scattered moles, no gross abnormalities 05/03/2014 None Full Exam - General 1995 Neurologic deep tendon reflexes Overall: deep tendon [...] Codes Date URINALYSIS NONAUTO W/O SCOPE CPT-4: 66697 12/26/2015 URINALYSIS NONAUTO W/O SCOPE CPT-4: 95337 12/09/2014 URINALYSIS NONAUTO W/O SCOPE CPT-4: 94518 07/12/2014 Vital Signs Date Vital 01/09/2017 Blood Pressure 1: 144/82 Code : 8480-6 BMI: 36.8 Code : 63703-5 Heart Rate 1 : 84 bpm Height: 4'11" SpO2: 95% Weight: 182 lbs 09/27/2016 Blood Pressure 1: 152/74 Code : 8480-6 BMI: 38.1 Code : 01683-9 Heart Rate 1 : 80 bpm Height: 4'11" SpO2: 95% Weight: 188 lbs 8 oz 07/29/2016 Blood Pressure 1: 152/76 Code : 8480-6 BMI: 39.0 Code : 27319-0 Heart Rate 1 : 90 bpm Height: 4'11" SpO2: 97% Weight: 193 lbs 06/28/2016 Blood Pressure 1: 130/74 Code : 8480-6 BMI: 40.6 Code : 25965-8 Heart Rate 1 : 85 bpm Height: 4'11" SpO2: 97% Weight: 201 lbs 03/26/2016 Blood Pressure 1: 130/62 Code : 8480-6 Heart Rate 1: 76 bpm Height: SpO2: 93% Weight: 03/07/2016 Blood Pressure 1: 144/60 Code : 8480-6 BMI: 40.4 Code : 78919-2 Heart Rate 1 : 85 bpm Height: 4'11" SpO2: 95% Weight: 200 lbs 01/24/2016 Blood Pressure 1: 134/50 Code : 8480-6 BMI: 40.4 Code : 27182-9 Heart Rate 1 : 91 bpm Height: 4'11" SpO2: 96% Weight: 200 lbs 01/19/2016 Blood Pressure 1: 158/72 Code : 8480-6 BMI: 40.8 Code : 41946-8 Heart Rate 1 : 82 bpm Height: 4'11" SpO2: 96% Weight: 202 lbs 01/16/2016 Blood Pressure 1: 164/70 Code : 8480-6 BMI: 41.2 Code : 73478-6 Heart Rate 1 : 87 bpm Height: 4'11" SpO2: 94% Weight: 204 lbs 12/26/2015 Blood Pressure 1: 142/70 Code : 8480-6 BMI: 40.4 Code : 96704-9 Heart Rate 1 : 89 bpm Height: 4'11" SpO2: 98% Weight: 200 lbs 10/12/2015 Blood Pressure 1: 140/68 Code : 8480-6 BMI: 39.6 Code : 69132-3 Heart Rate 1 : 81 bpm Height: 4'11" SpO2: 96% Weight: 196 lbs 09/08/2015 Blood Pressure 1: 130/80 Code : 8480-6 BMI: 38.8 Code : 63838-0 Heart Rate 1 : 94 bpm Height: 4'11" SpO2: 95% Weight: 192 lbs 08/21/2015 Blood Pressure 1: 128/82 Code : 8480-6 BMI: 38.4 Code : 25997-0 Heart Rate 1 : 84 bpm Height: 4'11" SpO2: 96% Weight: 190 lbs 02/16/2015 Blood Pressure 1: 138/68 Code : 8480-6 BMI: 37.2 Code : 13079-0 Heart Rate 1 : 81 bpm Height: 4'11" SpO2: 95% Weight: 184 lbs 01/16/2015 Blood Pressure 1: 134/64 Code : 8480-6 BMI: 36.8 Code : 64794-4 Heart Rate 1 : 76 bpm Height: [...] Weight: 172 lbs 05/03/2014 BMI: 36.2 Code: 20757-7 Height: 4'11" Weight: 179 lbs 03/31/2014 Blood Pressure 1: 112/68 Code : 8480-6 BMI: 35.1 Code : 32316-9 Heart Rate 1 : 74 bpm Height: 4'11" Weight: 174 lbs 03/18/2014 Blood Pressure 1: 138/70 Code : 8480-6 BMI: 37.0 Code : 52471-1 Heart Rate 1 : 78 bpm Height: [...] data Encounters Encounter Performer Location Codes Date 50161 EST. PATIENT, LEVEL III Diagnosis: Localized edema[ICD10: R60.0] Diagnosis: Frequency of micturition[ICD10: R35.0] Diagnosis: Urgency of urination[ICD10: R39.15] Tanvi Islas MD, [facility] CPT-4: 73229 01/09/2017 ([id number]) 61120 EST. PATIENT, LEVEL IV Diagnosis: Essential (primary) hypertension[ICD10: I10] Diagnosis: Type 2 diabetes mellitus with hyperglycemia[ICD10: E11.65] Diagnosis: Parkinson's disease[ICD10: G20] Diagnosis: Bilateral primary osteoarthritis of hip[ICD10: M16.0] Amee Islas MD, [facility] CPT-4: 90863 09/27/2016 [id number] EST. PATIENT, LEVEL IV Diagnosis: Pain in right toe(s)[ICD10: M79.674] Diagnosis: Localized edema[ICD10: R60.0] Diagnosis: Low back pain[ICD10: M54.5] Tanvi Islas MD, [facility] CPT-4 : 45801 07/29/2016 ([id number]) 26760 EST. PATIENT, LEVEL III Diagnosis: Pain in left hip[ICD10: M25.552] Amee Islas MD, [facility] CPT-4: 96758 06/28/2016 ([id number]) 33433 EST. PATIENT, LEVEL IV Diagnosis: Type 2 diabetes mellitus with hyperglycemia[ICD10: E11.65] Diagnosis: Parkinson's disease[ICD10: G20] Diagnosis: Essential (primary) hypertension[ICD10: I10] Diagnosis: Muscle weakness (generalized)[ICD10: M62.81] Diagnosis: Localized edema[ICD10: R60.0] Celestina Islas MD, [facility] CPT- 4: 07529 03/26/2016 59825 EST. PATIENT, LEVEL III Diagnosis: Dysuria[ICD10: R30.0] Diagnosis: Left upper quadrant pain[ICD10: R10.12] Tanvi Islas MD, [facility] CPT-4: 24595 03/07/2016 42657 EST. PATIENT, LEVEL IV Diagnosis: Encounter for follow-up examination after completed treatment for conditions other than malignant neoplasm[ICD10: Z09] Tanvi Islas MD, [facility] CPT-4: 68911 01/24/2016 ([id number]) Miscellaneous no charge Diagnosis: Localized edema[ICD10: R60.0] Tanvi Islas MD, [facility] CPT-4 : 77865 01/19/2016 86300 EST. PATIENT, LEVEL IV Diagnosis: Localized edema[ICD10: R60.0] Diagnosis: Other skin changes[ICD10: R23.8] Diagnosis: Low back pain[ICD10: M54.5] Tanvi Islas MD, [facility] CPT-4 : 88139 01/16/2016 ([id number]) 90219 EST. PATIENT, LEVEL IV Diagnosis: Type 2 diabetes mellitus with hyperglycemia[ICD10: E11.65] Diagnosis: Parkinson's disease[ICD10: G20] Diagnosis: Essential (primary) hypertension[ICD10: I10] Diagnosis: Dysuria[ICD10: R30.0] Diagnosis: Low back pain[ICD10: M54.5] Celestina Islas MD, [facility] CPT- 4: 76547 12/26/2015 ([id number]) 34770 EST. PATIENT, LEVEL IV Diagnosis: Type 2 diabetes mellitus with hyperglycemia[ICD10: E11.65] Diagnosis: Parkinson's disease[ICD10: G20] Diagnosis: Essential (primary) hypertension[ICD10: I10] Diagnosis: Bilateral primary osteoarthritis of hip[ICD10: M16.0] Celestina Islas MD, [facility] CPT-4: 45532 10/12/2015 ([id number]) 17972 EST. PATIENT, LEVEL III Diagnosis: Essential (primary) hypertension[ICD10: I10] Diagnosis: Localized edema[ICD10: R60.0] Diagnosis: Unsteadiness on feet[ICD10: R26.81] Diagnosis: Muscle weakness (generalized)[ICD10: M62.81] Diagnosis: Bilateral primary osteoarthritis of hip[ICD10: M16.0] Amee Isals MD, [facility] CPT-4: 76302 09/08/2015 ([id number]) 30338 EST. PATIENT, LEVEL IV Diagnosis: Type 2 diabetes mellitus with hyperglycemia[ICD10: E11.65] Diagnosis: Essential (primary) hypertension[ICD10: I10] Diagnosis: Muscle weakness (generalized)[ICD10: M62.81] Diagnosis: Parkinson's disease[ICD10: G20] Diagnosis: Low back pain[ICD10: M54.5] Amee Islas MD, [facility] CPT-4: 53491 08/21/2015 ([id number]) 06982 EST. PATIENT, LEVEL IV Diagnosis: Parkinson's disease[ICD10: G20] Diagnosis: Essential (primary) hypertension[ICD10: I10] Diagnosis: Type 2 diabetes mellitus with hyperglycemia[ICD10: E11.65] Diagnosis: Pain in unspecified hip[ICD10: M25.559] Celestina Islas MD [facility] CPT-4: 62252 02/16/2015 ([id number]) 12871 EST. PATIENT, LEVEL IV Diagnosis: Dysuria[ICD9: 788.1] Diagnosis: Parkinson's disease[ICD9: 332.0] Diagnosis: ESSENTIAL HYPERTENSION[ICD9: 401.9] Amee Islas MD [facility] CPT-4: 76391 01/16/2015 ([id number]) 25113 EST. PATIENT, LEVEL IV Diagnosis: UTI (urinary tract infection)[ICD9: 599.0] Diagnosis: DM W/O COMPLICATION TYPE II, UNCONTROLLED[ICD9: 250.02] Diagnosis: ESSENTIAL HYPERTENSION[ICD9: 401.9] Diagnosis: EDEMA[ICD9: 782.3] Celestina Islas MD [facility] CPT-4: 78330 12/09/2014 ([id number]) 89676 EST. PATIENT, LEVEL IV Diagnosis: ESSENTIAL HYPERTENSION[ICD9: 401.9] Diagnosis: DIABETES TYPE II[ICD9: 250.00] Diagnosis: Parkinson's disease[ICD9: 332.0] Celestina Islas MD, [facility] CPT-4: 15933 09/28/2014 ([id number]) Patient admitted to the hospital from clinic (NO CHARGE) Diagnosis: Back pain[ICD9: 724.5] Diagnosis: EDEMA[ICD9: 782.3] Diagnosis: MALAISE AND FATIGUE[ICD9: 780.79] Diagnosis: Parkinson's disease[ICD9: 332.0] Diagnosis: ESSENTIAL HYPERTENSION[ICD9: 401.9] Diagnosis: Cellulitis[ICD9: 682.9] Diagnosis: Hip pain[ICD9: 719.45] Celestina Islas MD, [facility] CPT-4: 90716M 07/19/2014 ([id number] 18220 EST. PATIENT, LEVEL IV Diagnosis: DM W/O COMPLICATION TYPE II, UNCONTROLLED[ICD9: 250.02] Diagnosis: Back pain[ICD9: 724.5] Diagnosis: EDEMA[ICD9: 782.3] Diagnosis: Parkinson's disease[ICD9: 332.0] [facility] CPT-4: 70453 07/12/2014 ([id number]) 04858 EST. PATIENT, LEVEL IV Diagnosis: EDEMA[ICD9: 782.3] Diagnosis: Chronic osteoarthritis[ICD9: 715.90] Diagnosis: Bilateral arm weakness[ICD9: 729.89] Diagnosis: Parkinson's disease[ICD9: 332.0] Diagnosis: Back pain[ICD9: 724.5] [facility] CPT-4: 62532 05/03/2014 [id number]) [id number] EST. 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.02] Diagnosis: OBESITY[ICD9: 278.00] Diagnosis: EDEMA[ICD9: 782.3] Diagnosis: MALAISE AND FATIGUE[ICD9: 780.79] Diagnosis: Restless leg[ICD9: 333.94] [facility] CPT- 4: 44240 03/18/2014 Plan of Care Planned Activity Notes Codes Status Date Appointment: [facility] [facility] 01/09/2017 Patient Education: Patient Medication Summary Completed 01/09/2017 Patient Education: Obesity Completed 01/09/2017 Appointment: Amee Esteves [phone] [place] (30 min) Complex 09/27/2016 Patient Education: Patient Medication Summary Completed 09/27/2016 Patient Education: Hypertension Completed 09/27/2016 Appointment: [facility] [phone] [facility] ([facility] Complex 07/29/2016 Patient Education: Patient Medication Summary Completed 07/29/2016 Patient Education: Obesity Completed 07/29/2016 Appointment: Amee Esteves [phone] [place] (30 min) Complex 06/28/2016 Patient Education: Patient Medication Summary Completed 06/28/2016 Patient Education: Obesity Completed 06/28/2016 Appointment: [facility]las [facility] (15 min) Moderate 03/26/2016 Patient Education: Patient Medication Summary Completed 03/26/2016 Care Plan: COMPLETE CBC AUTOMATED LOINC : 88271-6 Pending 03/26/2016 Care Plan: MICROALBUMIN QUANTITATIVE LOINC : 33268-6 Pending 03/26/2016 Appointment: Tanvi Wiggins [facility] ([facility]) Complex 03/07/2016 Patient Education: Patient Medication Summary Completed 03/07/2016 Patient Education: Obesity Completed 03/07/2016 Care Plan: Urine Culture Pending 03/07/2016 Appointment: Amee Esteves WPtel[phone] [place] (30 min) Complex 01/24/2016 Patient Education: Patient Medication Summary Completed 01/24/2016 Patient Education: Patient Medication Summary Completed 01/19/2016 Appointment: Amee Esteves [phone] [place] ([place] min) Complex 01/16/2016 Patient Education: Patient Medication Summary Completed 01/16/2016 Appointment: Celestina Islas WPtel[facility] [place] (15 min) Moderate 12/26/2015 Patient Education: Patient Medication Summary Completed 12/26/2015 Patient Education: Obesity Completed 12/26/2015 Appointment: Celestina Islas WPtel: [facility] (15 min) Moderate 10/12/2015 Patient Education: Patient Medication Summary Completed 10/12/2015 Patient Education: Obesity Completed 10/12/2015 Patient Education: Hypertension Completed 10/12/2015 Appointment: Amee Esteves WPtel: [phone] (30 min) Complex 09/08/2015 Patient Education: Patient Medication Summary Completed 09/08/2015 Patient Education: Patient Medication Summary Completed 08/21/2015 Patient Education: Hypertension Completed 08/21/2015 Care Plan: Referral Order SNOMED-CT : [id number] Ordered 02/19/2015 Appointment: Celestina Islas WPtel: [address] [place], [place] [phone] (15 min) Moderate 02/16/2015 Patient Education: Patient Medication Summary Completed 02/16/2015 Patient Education: Hypertension Completed 02/16/2015 Appointment: (30 min) Complex 01/16/2015 Patient Education: Patient Medication Summary Completed 01/16/2015 Patient Education: Hypertension Completed 01/16/2015 Appointment: Lab Draw 12/20/2014 Appointment: (15 min) Moderate 12/09/2014 Patient Education: Patient Medication Summary Completed 12/09/2014 Patient Education: Hypertension Completed 12/09/2014 Care Plan: C URINE RT Pending 12/09/2014 Care Plan: COMPLETE CBC AUTOMATED LOINC : 63150-6 Ordered 12/09/2014 Appointment: Celestina Islas WPtel: [address] [place], [place] [phone] Follow up 09/28/2014 Patient Education: Patient Medication Summary Completed 09/28/2014 Patient Education: Hypertension Completed 09/28/2014 Appointment: Celestina Islas WPtel: [facility] Sick 07/19/2014 Patient Education: Patient Medication Summary Completed 07/19/2014 Patient Education: Hypertension Completed 07/19/2014 Appointment: Celestina Islas WPtel: [facility] Follow up 07/12/2014 Patient Education: Patient Medication Summary Completed 07/12/2014 Appointment: Celestina Islas WPtel: [facility] Follow up 05/03/2014 Patient Education: Patient Medication Summary Completed 05/03/2014 Appointment: Celestina Islas WPtel: [address] [place], [place] [phone] Follow up 03/31/2014 Patient Education: Patient Medication Summary Completed 03/31/2014 Patient Education: Hypertension Completed 03/31/2014 Appointment: Celestina Islas WPtel: [facility] New Patient 03/18/2014 Patient Education: Patient Medication Summary Completed 03/18/2014 Patient Education: Hypertension Completed 03/18/2014 Referral: External, Ordering Provider Referral Appointment Requested Instructions No Instructions
--- OUTSIDE RECORDS SUMMARY | 2017-07-29 19:37 | XMS REPORT | CCD ---
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 Name Role Phone PP Unavailable CCM Unavailable Summary Purpose Interface Exchange Insurance Providers Payer name Policy type / Coverage type Covered green party ID Effective Begin Date Effective End Date WPS Medicare Part B Medicare Part B [id number] Unknown Unknown FOR LIFE WPS Medicare Part B [id number] Unknown Unknown Family history Mother Diagnosis Age At Onset No Family Disease Entered N/A Social History Social History Element Codes Description Effective Dates Living arrangements Unknown Assisted Living VCV 11/08/2015 Education level Unknown College Graduate 10/12/2015 Marital status Unknown 03/18/2014 Number of children Unknown 5 03/18/[address]: 521643001 Never smoker 03/18/[address]: 762229971 Never drinks alcohol 03/18/2014 Allergies, Adverse Reactions, [...] Start Date Stop Date Status Fill Instructions Voltaren 1 % topical gel RxNorm: 857866 APPLY 4 GRAMS TO LOWER BACK/HIPS FOUR TIMES DAILY 06/09/2017 07/20/2017 Active Generic For:VOLTAREN GEL 1% 06/09/2017 8: 52:25 AM Duragesic 25 mcg/hr transdermal patch RxNorm: 905264 1 Patch TD Q72H 06/09/2017 07/08/2017 Active Duragesic 12 mcg/hr transdermal patch RxNorm: 306351 1 Patch TD Q72H 06/09/2017 07/08/2017 Active Keflex 500 mg capsule RxNorm: 230926 1 Capsule(s) PO TID 201706/04/2017 Inactive Keflex 500 mg capsule RxNorm: 497465 1 Capsule(s) PO TID 201705/28/2017 Inactive senna 8.6 mg tablet RxNorm: 980599 Tablet(s) TAKE 2 TABLETS BY MOUTH DAILY 05/26/2017 12/21/2017 Active Generic For:SENOKOT TABLET 10/03/2016 9:56:42 AM 10/03 9:56:41 AM Ocuvite with Lutein 1,000 unit-200 mg-60 unit-2mg tablet RxNorm: 1 Tablet(s) PO daily 05/26/2017 12/21/2017 Active Duragesic 12 mcg/hr transdermal patch RxNorm: 400266 1 Patch TD Q72H 05/23/2017 06/08/2017 Inactive Aleve 220 mg tablet RxNorm: 806678 Tablet(s) TAKE ONE TABLET BY MOUTH TWICE DAILY 05/12/2017 09/08/2017 Active 05/13/2016 8:39:57 AM Lantus 100 unit/mL subcutaneous solution RxNorm: 893027 INJECT 30 UNITS SUBCUTANEOUSLY DAILY 05/05/20172018 Active 05/05/2017 11:15:06 AM Augmentin 500 mg-125 mg tablet RxNorm: 138395 1 Tablet(s) PO TID 05/02/2017 05/01/2017 Inactive Augmentin 500 mg-125 mg tablet RxNorm: 944087 1 Tablet(s) PO TID 05/02/2017 05/08/2017 Inactive Vesicare 5 mg tablet RxNorm: 857394 1 Tablet(s) PO daily 201608/21/2017 Active gabapentin 100 mg capsule RxNorm: 014624 TAKE 1 CAPSULE BY MOUTH DAILY 04/24/2017 10/20/2017 Active Generic For:NEURONTIN 100 MG CAPSULE 04/24/2017 12:21:48 PM Duragesic 12 mcg/hr transdermal patch RxNorm: 698297 1 Patch TD Q72H 04/22/2017 05/21/2017 Inactive Duragesic 25 mcg/hr transdermal patch RxNorm: 900945 1 Patch TD Q72H 04/22/2017 05/21/2017 Inactive capsaicin 0.025 % topical cream RxNorm: 278073 APPLY TOPICALLY FOUR TIMES DAILY 04/10/2017 07/26/2017 Active 04/10/2017 11:05:24 AM N O T I C E Last quantity doesn't match original quantity Duragesic 12 mcg/hr transdermal patch RxNorm: 631643 1 Patch TD Q72H 03/24/2017 04/21/2017 Inactive Duragesic 25 mcg/hr transdermal patch RxNorm: 193727 1 Patch TD Q72H 03/24/2017 04/21/2017 Inactive Duragesic 12 mcg/hr transdermal patch RxNorm: 479726 1 Patch TD Q72H 02/20/2017 03/21/2017 Inactive Voltaren 1 % topical gel RxNorm: 219328 APPLY 4 GRAMS TO LOWER BACK/HIPS FOUR TIMES DAILY 02/13/2017 03/26/2017 Inactive Generic For:VOLTAREN GEL 1% 02/12/2017 9:20:40 AM Vesicare 5 mg tablet RxNorm: 251682 1 Tablet(s) PO daily 201605/04/2017 Inactive Vesicare 5 mg tablet RxNorm: 498809 1 Tablet(s) PO daily 201602/04/2017 Inactive Cozaar 50 mg tablet RxNorm: 098583 TAKE 1 TABLET BY MOUTH DAILY 01/31/2017 07/29/2017 Active Generic For:*COZAAR 50 MG TABLET 01/30/2017 3:58:13 PM Namenda 10 mg tablet RxNorm: 819761 TAKE 1 TABLET BY MOUTH TWICE DAILY 01/31/2017 06/29/2017 Active Generic For:NAMENDA 10MG TAB 01/30/2017 3:57:01 PM gabapentin 300 mg capsule RxNorm: 384170 TAKE 1 CAPSULE(S) BY MOUTH TWICE DAILY 01/31/2017 06/29/2017 Active Generic For:NEURONTIN 300 MG CAPSULE 01/30/2017 3:59: 00 PM trazodone 50 mg tablet RxNorm: 642445 TAKE 1 TABLET BY MOUTH DAILY 01/31/2017 07/29/2017 Active Generic For:DESYREL 50 MG TABLET 01/30/2017 3:57:33 PM Duragesic 12 mcg/hr transdermal patch RxNorm: 817983 1 Patch TD Q72H 01/23/2017 02/19/2017 Inactive Duragesic 25 mcg/hr transdermal patch RxNorm: 448050 1 Patch TD Q72H 01/21/2017 02/19/2017 Inactive Keflex 500 mg capsule RxNorm: 326804 1 Capsule(s) PO TID 201601/09/2017 Inactive Keflex 500 mg capsule RxNorm: 313392 1 Capsule(s) PO TID 201601/19/2017 Inactive Duragesic 12 mcg/hr transdermal patch RxNorm: 447371 1 Patch TD Q72H 12/27/2016 01/22/2017 Inactive Duragesic 25 mcg/hr transdermal patch RxNorm: 990110 1 Patch TD Q72H 12/03/2016 01/01/2017 Inactive Duragesic 12 mcg/hr transdermal patch RxNorm: 226035 1 Patch TD Q72H 11/21/2016 12/20/2016 Inactive Voltaren 1 % topical gel RxNorm: 794658 APPLY 4 GRAMS TO LOWER BACK/HIPS FOUR TIMES DAILY 11/14/2016 12/25/2016 Inactive Generic For:VOLTAREN GEL 1% 11/14/2016 11:44:09 AM capsaicin 0.025 % topical cream RxNorm: 302346 1 Application TOP QID 11/11/2016 04/09/2017 Inactive Lantus 100 unit/mL subcutaneous solution RxNorm: 523876 30 Unit(s) SQ daily 11/11/2016 05/04/2017 Inactive Ocuvite with Lutein 1,000 unit-200 mg-60 unit-2mg tablet RxNorm: 1 Tablet(s) PO daily 11/08/2016 05/25/2017 Inactive gabapentin 100 mg capsule RxNorm: 662342 TAKE 1 CAPSULE BY MOUTH DAILY 11/08/2016 04/23/2017 Inactive Generic For:NEURONTIN 100 MG CAPSULE 11/08/2016 9:16:54 AM N O T I C E Last quantity doesn't match original quantity Duragesic 25 mcg/hr transdermal patch RxNorm: 068962 1 Patch TD Q72H 11/04/2016 12/02/2016 Inactive Duragesic 12 mcg/hr transdermal patch RxNorm: 642075 1 Patch TD Q72H 10/21/2016 11/19/2016 Inactive Duragesic 25 mcg/hr transdermal patch RxNorm: 112655 1 Patch TD Q72H 10/10/2016 11/03/2016 Inactive senna 8.6 mg tablet RxNorm: 161680 Tablet(s) TAKE 2 TABLETS BY MOUTH DAILY 10/08/2016 05/05/2017 Inactive Generic For:SENOKOT TABLET 10/03/2016 9:56:42 AM 9:56:41 AM senna 8.6 mg tablet RxNorm: 277402 TAKE 2 TABLETS BY MOUTH DAILY 10/03/2016 10/07/2016 Inactive Generic For:SENOKOT TABLET 10/03/2016 9:56:42 AM 10/03/2016 9:56: 41 AM Duragesic 12 mcg/hr transdermal patch RxNorm: 920276 1 Patch TD Q72H 09/25/2016 10/20/2016 Inactive mecobalamin (vitamin B12) 5,000 mcg disintegrating tablet RxNorm: 8131424 1 Tablet (s) PO daily 09/13/2016 08/08/2017 Active gabapentin 300 mg capsule RxNorm: 271690 1 Capsule(s) PO BID 01/30/2017 Inactive Namenda 10 mg tablet RxNorm: 549386 TAKE 1 TABLET BY MOUTH TWICE DAILY 09/13/2016 01/30/2017 Inactive Generic For:NAMENDA 10MG TAB 09/13/2016 2:21:26 PM N O T I C E Last quantity doesn't match original quantity trazodone 50 mg tablet RxNorm: 574316 TAKE 1 TABLET BY MOUTH DAILY 09/13/2016 01/30/2017 Inactive Generic For:DESYREL 50 MG TABLET 09/13/2016 2:21:21 PM N O T I C E Last quantity doesn't match original quantity Cozaar 50 mg tablet RxNorm: 223152 TAKE 1 TABLET BY MOUTH DAILY 09/13/2016 01/30/2017 Inactive Generic For:*COZAAR 50 MG TABLET 09/13/2016 2:21:15 PM N O T I C E Last quantity doesn't match original quantity Duragesic 25 mcg/hr transdermal patch RxNorm: 033273 1 Patch TD Q72H 09/09/2016 10/08/2016 Inactive Voltaren 1 % topical gel RxNorm: 785763 4 Gram(s) TOP to lower back/hips QID 09/02/2016 11/13/2016 Inactive Duragesic 12 mcg/hr transdermal patch RxNorm: 050854 1 Patch TD Q72H 08/21/2016 09/19/2016 Inactive Myrbetriq 50 mg tablet,extended release RxNorm: 1329267 TAKE 1 TABLET BY MOUTH DAILY 08/15/2016 03/12/2017 Inactive 08/15/2016 1:38:02 PM N O T I C E Last quantity doesn't match original quantity gabapentin 100 mg capsule RxNorm: 810868 TAKE 1 CAPSULE BY MOUTH DAILY 08/15/2016 11/07/2016 Inactive Generic For:NEURONTIN 100 MG CAPSULE 08/15/2016 1:37:55 PM N O T I C E Last quantity doesn't match original quantity hydrocodone 5 mg-acetaminophen 325 mg tablet RxNorm: 941855 1 Tablet(s) PO Q4H as needed 08/08/2016 09/06/2016 Inactive Keflex 500 mg capsule RxNorm: 803497 1 Capsule(s) PO TID 201608/04/2016 Inactive Duragesic 12 mcg/hr transdermal patch RxNorm: 714449 1 Patch TD Q72H 07/24/2016 08/20/2016 Inactive Mirapex 1 mg tablet RxNorm: 533053 TAKE 1 TABLET BY MOUTH THREE TIMES DAILY 07/17/2016 10/14/2016 Inactive Generic For:MIRAPEX 1MG TAB BOEH 07/17/2016 10:01: 58 AM carbidopa 25 mg-levodopa 100 mg tablet RxNorm: 507075 TAKE 2 TABLETS BY MOUTH FOUR TIMES DAILY 07/17/2016 10/14/2016 Inactive Generic For:SINEMET-25/100 TABLET 07/17/2016 10:02:12 AM Duragesic 25 mcg/hr transdermal patch RxNorm: 707180 1 Patch TD q72 hours 07/15/2016 08/13/2016 Inactive Voltaren 1 % topical gel RxNorm: 983105 4 Gram(s) TOP to lower back/hips QID 07/11/2016 09/01/2016 Inactive capsaicin 0.025 % topical cream RxNorm: 437874 1 Application TOP QID 07/05/2016 11/10/2016 Inactive Refresh Tears 0.5 % eye drops RxNorm: 2645736 1 Drop(s) OPH daily as needed for dry eyes 06/28/2016 No Stop Date Active Duragesic 12 mcg/hr transdermal patch RxNorm: 478427 1 TD q72 hours 06/27/2016 07/23/2016 Inactive Vitamin D2 50,000 unit capsule RxNorm: 428197 TAKE 1 CAPSULE BY MOUTH WEEKLY 06/21/2016 07/18/2016 Inactive Generic For:DRISDOL 77332 UNITS CAP 06/18/2016 4:31: 30 PM Mirapex 1 mg tablet RxNorm: 029380 TAKE 1 TABLET BY MOUTH THREE TIMES DAILY 06/19/2016 07/16/2016 Inactive Generic For:MIRAPEX 1MG TAB [facility] 06/18/2016 4:32: 01 PM N O T I C E Last quantity doesn't match original quantity Cozaar 50 mg tablet RxNorm: 032724 TAKE 1 TABLET BY MOUTH DAILY 06/19/2016 09/12/2016 Inactive Generic For:*COZAAR 50 MG TABLET N O T I C E Last quantity doesn't match original quantity carbidopa 25 mg-levodopa 100 mg tablet RxNorm: 932443 TAKE 2 TABLETS BY MOUTH FOUR TIMES DAILY 06/19/2016 07/16/2016 Inactive Generic For:SINEMET-25/100 TABLET N O T I C E Last quantity doesn't match original quantity Namenda 10 mg tablet RxNorm: 400885 TAKE 1 TABLET BY MOUTH TWICE DAILY 06/19/2016 09/12/2016 Inactive Generic For:NAMENDA 10MG TAB 06/18/2016 4:32:09 PM N O T I C E Last quantity doesn't match original quantity trazodone 50 mg tablet RxNorm: 331029 TAKE 1 TABLET BY MOUTH DAILY 06/19/2016 09/12/2016 Inactive Generic For:DESYREL 50 MG TABLET N O T I C E Last quantity doesn't match original quantity Duragesic 25 mcg/hr transdermal patch RxNorm: 260096 1 Patch TD q72 hours 06/12/2016 07/11/2016 Inactive Aleve 220 mg tablet RxNorm: 675674 Tablet(s) TAKE ONE TABLET BY MOUTH TWICE DAILY 05/27/2016 09/23/2016 Inactive 05/13/2016 8:39:57 AM Duragesic 12 mcg/hr transdermal patch RxNorm: 476213 1 TD q72 hours 05/27/2016 06/25/2016 Inactive gabapentin 300 mg capsule RxNorm: 393596 1 Capsule(s) PO BID 05/23/2016 Inactive Lantus 100 unit/mL subcutaneous solution RxNorm: 562893 30 Unit(s) SQ daily 05/24/2016 05/23/2016 Inactive gabapentin 300 mg capsule RxNorm: 225545 1 Capsule(s) PO BID 09/12/2016 Inactive Lantus 100 unit/mL subcutaneous solution RxNorm: 330642 30 Unit(s) SQ daily 05/24/2016 11/10/2016 Inactive carbidopa 25 mg-levodopa 100 mg tablet RxNorm: 088268 TAKE 2 TABLETS BY MOUTH FOUR TIMES DAILY 05/22/2016 06/18/2016 Inactive Generic For:SINEMET-25/100 TABLET 05/22/2016 9:39:54 AM Namenda 10 mg tablet RxNorm: 958245 TAKE 1 TABLET BY MOUTH TWICE DAILY 05/22/2016 06/18/2016 Inactive Generic For:NAMENDA 10MG TAB 05/22/2016 9:39:26 AM mecobalamin (vitamin B12) 5,000 mcg disintegrating tablet RxNorm: 3933309 1 Tablet (s) PO daily 05/22/2016 09/12/2016 Inactive Cozaar 50 mg tablet RxNorm: 415399 TAKE 1 TABLET BY MOUTH DAILY 05/22/2016 06/18/2016 Inactive Generic For:*COZAAR 50 MG TABLET 05/22/2016 9:39:36 AM Mirapex 1 mg tablet RxNorm: 665890 TAKE 1 TABLET BY MOUTH THREE TIMES DAILY 05/22/2016 06/18/2016 Inactive Generic For:MIRAPEX 1MG TAB [facility] 05/22/2016 9:39: 17 AM trazodone 50 mg tablet RxNorm: 118379 TAKE 1 TABLET BY MOUTH DAILY 05/22/2016 06/18/2016 Inactive Generic For:DESYREL 50 MG TABLET 05/22/2016 9:39:07 AM Ocuvite with Lutein 1,000 unit-200 mg-60 unit-2mg tablet RxNorm: 1 Tablet(s) PO daily 05/21/2016 05/20/2016 Inactive gabapentin 100 mg capsule RxNorm: 957572 TAKE 1 CAPSULE BY MOUTH DAILY 05/21/2016 08/14/2016 Inactive Generic For:NEURONTIN 100 MG CAPSULE 05/21/2016 2:57:16 PM Myrbetriq 50 mg tablet,extended release RxNorm: 5404931 TAKE 1 TABLET BY MOUTH DAILY 05/21/2016 08/15/2016 Inactive 05/21/2016 2:59:11 PM Ocuvite with Lutein 1,000 unit-200 mg-60 unit-2mg tablet RxNorm: 1 Tablet(s) PO daily 05/21/2016 11/07/2016 Inactive Aleve 220 mg tablet RxNorm: 798904 TAKE ONE TABLET BY MOUTH TWICE DAILY 05/14/2016 05/26/2016 Inactive 05/13/2016 8:39:57 AM Duragesic 25 mcg/hr transdermal patch RxNorm: 904753 1 Patch TD q72 hours 05/14/2016 06/11/2016 Inactive Duragesic 12 mcg/hr transdermal patch RxNorm: 490181 1 TD q72 hours 04/24/2016 05/23/2016 Inactive capsaicin 0.025 % topical cream RxNorm: 224638 1 Application TOP QID 04/16/2016 07/04/2016 Inactive Duragesic 12 mcg/hr transdermal patch RxNorm: 733220 1 TD q72 hours 04/10/2016 04/23/2016 Inactive Duragesic 25 mcg/hr transdermal patch RxNorm: 655366 1 TD q72 hours 04/10/2016 05/09/2016 Inactive Cipro 500 mg tablet RxNorm: 634874 1 Tablet(s) PO BID 201504/13/2016 Inactive hydrocodone 5 mg-acetaminophen 325 mg tablet RxNorm: 409930 1 Tablet(s) PO Q4H as needed 03/20/2016 04/18/2016 Inactive Duragesic 12 mcg/hr transdermal patch RxNorm: 715369 1 TD q72 hours 03/20/2016 04/09/2016 Inactive Duragesic 25 mcg/hr transdermal patch RxNorm: 362197 1 TD q72 hours 03/15/2016 04/09/2016 Inactive hydrocodone 5 mg-acetaminophen 325 mg tablet RxNorm: 103893 1 Tablet(s) PO Q4H as needed 03/08/2016 03/19/2016 Inactive Cipro 500 mg tablet RxNorm: 869678 1 Tablet(s) PO BID 201503/06/2016 Inactive Cipro 500 mg tablet RxNorm: 949932 1 Tablet(s) PO BID 201503/13/2016 Inactive Duragesic 12 mcg/hr transdermal patch RxNorm: 483759 1 TD q72 hours 02/27/2016 03/19/2016 Inactive Duragesic 12 mcg/hr transdermal patch RxNorm: 455168 1 TD q72 hours 01/29/2016 02/26/2016 Inactive [SAVINGS FOR NON-COVERED DRUGS -- BIN:868295, PCN: ASPROD1, Group : XXXXX, ID# XXXXXXX, Questions: . THIS IS NOT INSURANCE.] Lasix 20 mg tablet RxNorm: 608409 2 Tablet(s) PO daily 201501/28/2016 Inactive potassium chloride ER 10 mEq tablet,extended release RxNorm: 677558 2 Tablet(s) PO daily to take while taking the lasix 01/24/2016 01/28/2016 Inactive Duragesic 25 mcg/hr transdermal patch RxNorm: 065424 1 TD q72 hours 01/16/2016 02/14/2016 Inactive Duragesic 25 mcg/hr transdermal patch RxNorm: 437459 1 TD q72 hours APPLY WITH DURAGESIC 12MCG 1 Q 72 01/03/20162015 Inactive [SAVINGS FOR NON-COVERED DRUGS -- BIN:398330, PCN: ASPROD1, Group: XXXXX, ID# [id number], Questions: [phone]. THIS IS NOT INSURANCE.] hydrocodone 5 mg-acetaminophen 325 mg tablet RxNorm: 303239 1 Tablet(s) PO Q4H as needed 01/02/2016 03/07/2016 Inactive [SAVINGS FOR NON-COVERED DRUGS -- BIN:330542 , PCN: ASPROD1, Group: XXXXX, ID# XXXXXXX, Questions: . THIS IS NOT INSURANCE.] Myrbetriq 50 mg tablet,extended release RxNorm: 5947389 1 Tablet(s) PO daily 12/28/2015 04/25/2016 Inactive PA approved Duragesic 25 mcg/hr transdermal patch RxNorm: 427803 1 TD q72 hours 12/18/2015 01/02/2016 Inactive [SAVINGS FOR NON-COVERED DRUGS -- BIN:713593, PCN: ASPROD1, Group : XXXXX, ID# XXXXXXX, Questions: . THIS IS NOT INSURANCE.] Duragesic 25 mcg/hr transdermal patch RxNorm: 423537 1 TD q72 hours 11/17/2015 12/17/2015 Inactive [SAVINGS FOR NON-COVERED DRUGS -- BIN:007552, PCN: ASPROD1, Group : XXXXX, ID# XXXXXXX, Questions: . THIS IS NOT INSURANCE.] Myrbetriq 50 mg tablet,extended release RxNorm: 4400798 1 Tablet(s) PO daily 10/31/2015 12/27/2015 Inactive increase dose Myrbetriq 25 mg tablet,extended release RxNorm: 2560555 1 Tablet(s) PO daily 10/24/2015 10/30/2015 Inactive send PA form if required Myrbetriq 25 mg tablet,extended release RxNorm: 6309592 1 Tablet(s) PO daily 10/24/2015 10/23/2015 Inactive send PA form if required Duragesic 25 mcg/hr transdermal patch RxNorm: 619964 1 TD q72 hours 10/18/2015 11/16/2015 Inactive [SAVINGS FOR NON-COVERED DRUGS -- BIN:367514, PCN: ASPROD1, Group : XXXXX, ID# XXXXXXX, Questions: . THIS IS NOT INSURANCE.] Namenda 10 mg tablet RxNorm: 406599 1 Tablet(s) PO BID 201505/21/2016 Inactive Lantus Solostar 100 unit/mL (3 mL) subcutaneous insulin pen RxNorm: 040573 30 Unit(s) SQ daily (may be adjusted for further glucose control) 10/12/2015 05/23/2016 Inactive [SAVINGS FOR UNINSURED PATIENTS -- BIN:542477, PCN: ASPROD1, Group: AME08, ID# [id number], Process claim through [employer], for questions: [phone]. THIS IS NOT INSURANCE.] Mirapex 1 mg tablet RxNorm: 237614 1 Tablet(s) PO TID 201505/21/2016 Inactive Duragesic 25 mcg/hr transdermal patch RxNorm: 817899 1 TD q72 hours 09/18/2015 10/17/2015 Inactive [SAVINGS FOR NON-COVERED DRUGS -- BIN:318761, PCN: ASPROD1, Group : XXXXX, ID# XXXXXXX, Questions: . THIS IS NOT INSURANCE.] Sinemet CR 50 mg-200 mg tablet,extended release RxNorm: 855867 2 Tablet(s) PO QID 08/21/2015 10/12/2015 Inactive Duragesic 25 mcg/hr transdermal patch RxNorm: 575277 1 TD q72 hours 08/21/2015 09/17/2015 Inactive [SAVINGS FOR NON-COVERED DRUGS -- BIN:503938, PCN: ASPROD1, Group : XXXXX, ID# XXXXXXX, Questions: . THIS IS NOT INSURANCE.] Namenda XR 7 mg-14 mg-21 mg-28 mg capsule,sprinkle,ER 24hr, dose pack RxNorm: 879693 Capsule(s) PO 08/21/2015 08/21/2015 Inactive gabapentin 100 mg capsule RxNorm: 513353 1 Capsule(s) PO once daily at noon and 300mg BID 08/21/2015 05/20/2016 Inactive [SAVINGS FOR NON-COVERED DRUGS -- BIN: 637197, PCN: ASPROD1, Group: XXXXX, ID# XXXXXXX, Questions: . THIS IS NOT INSURANCE.] Mirapex 1 mg tablet RxNorm: 047994 1 Tablet(s) PO QPM 201509/19/2015 Inactive Lantus Solostar 100 unit/mL (3 mL) subcutaneous insulin pen RxNorm: 584805 25 Unit(s) SQ daily (may be adjusted for further glucose control) 08/21/2015 10/11/2015 Inactive [SAVINGS FOR UNINSURED PATIENTS -- BIN:935283, PCN: ASPROD1, Group: AME08, ID# [id number], Process claim through [employer], for questions: [phone]. THIS IS NOT INSURANCE.] Duragesic 12 mcg/hr transdermal patch RxNorm: 348543 1 TD q72 hours 08/04/2015 08/20/2015 Inactive [SAVINGS FOR NON-COVERED DRUGS -- BIN:497741, PCN: ASPROD1, Group : XXXXX, ID# XXXXXXX, Questions: . THIS IS NOT INSURANCE.] Augmentin 500 mg-125 mg tablet RxNorm: 646964 1 Tablet(s) PO TID 07/27/2015 07/26/2015 Inactive Augmentin 500 mg-125 mg tablet RxNorm: 324706 1 Tablet(s) PO TID 07/27/2015 08/02/2015 Inactive Cipro 500 mg tablet RxNorm: 564305 1 Tablet(s) PO BID 201507/06/2015 Inactive Cipro 500 mg tablet RxNorm: 756801 1 Tablet(s) PO BID 201510/11/2015 Inactive Duragesic 12 mcg/hr transdermal patch RxNorm: 091068 1 TD q72 hours 07/04/2015 08/03/2015 Inactive [SAVINGS FOR NON-COVERED DRUGS -- BIN:308788, PCN: ASPROD1, Group : XXXXX, ID# XXXXXXX, Questions: . THIS IS NOT INSURANCE.] hydrocodone 5 mg-acetaminophen 325 mg tablet RxNorm: 541031 1 Tablet(s) PO Q4H as needed 07/03/2015 01/01/2016 Inactive [SAVINGS FOR NON-COVERED DRUGS -- BIN:431383 , PCN: ASPROD1, Group: XXXXX, ID# XXXXXXX, Questions: . THIS IS NOT INSURANCE.] Duragesic 12 mcg/hr transdermal patch RxNorm: 201771 1 TD q72 hours 06/05/2015 07/03/2015 Inactive [SAVINGS FOR NON-COVERED DRUGS -- BIN:201978, PCN: ASPROD1, Group : XXXXX, ID# XXXXXXX, Questions: . THIS IS NOT INSURANCE.] Duragesic 12 mcg/hr transdermal patch RxNorm: 024601 1 TD q72 hours 05/09/2015 06/04/2015 Inactive [SAVINGS FOR NON-COVERED DRUGS -- BIN:268053, PCN: ASPROD1, Group : XXXXX, ID# XXXXXXX, Questions: . THIS IS NOT INSURANCE.] hydrocodone 5 mg-acetaminophen 325 mg tablet RxNorm: 849839 1 Tablet(s) PO Q4H as needed 04/27/2015 07/02/2015 Inactive [SAVINGS FOR NON-COVERED DRUGS -- BIN:665419 , PCN: ASPROD1, Group: XXXXX, ID# XXXXXXX, Questions: . THIS IS NOT INSURANCE.] Duragesic 12 mcg/hr transdermal patch RxNorm: 386571 1 TD q72 hours 04/06/2015 05/08/2015 Inactive [SAVINGS FOR NON-COVERED DRUGS -- BIN:376127, PCN: ASPROD1, Group : XXXXX, ID# XXXXXXX, Questions: . THIS IS NOT INSURANCE.] Duragesic 12 mcg/hr transdermal patch RxNorm: 039288 1 TD q72 hours 03/07/2015 04/05/2015 Inactive [SAVINGS FOR NON-COVERED DRUGS -- BIN:918797, PCN: ASPROD1, Group : XXXXX, ID# XXXXXXX, Questions: . THIS IS NOT INSURANCE.] hydrocodone 5 mg-acetaminophen 325 mg tablet RxNorm: 083216 1 Tablet(s) PO Q4H as needed 02/16/2015 04/26/2015 Inactive [SAVINGS FOR NON-COVERED DRUGS -- BIN:534873 , PCN: ASPROD1, Group: XXXXX, ID# XXXXXXX, Questions: . THIS IS NOT INSURANCE.] Mirapex 0.25 mg tablet RxNorm: 169030 1 Tablet(s) PO QPM 201403/17/2015 Inactive Duragesic 12 mcg/hr transdermal patch RxNorm: 813389 1 TD q72 hours 01/31/2015 03/06/2015 Inactive [SAVINGS FOR NON-COVERED DRUGS -- BIN:320335, PCN: ASPROD1, Group : XXXXX, ID# XXXXXXX, Questions: . THIS IS NOT INSURANCE.] Duragesic 12 mcg/hr transdermal patch RxNorm: 164172 1 TD q72 hours 01/03/2015 01/30/2015 Inactive [SAVINGS FOR NON-COVERED DRUGS -- BIN:721403, PCN: ASPROD1, Group : XXXXX, ID# XXXXXXX, Questions: . THIS IS NOT INSURANCE.] hydrocodone 5 mg-acetaminophen 325 mg tablet RxNorm: 684639 1 Tablet(s) PO Q4H as needed 12/21/2014 02/15/2015 Inactive [SAVINGS FOR NON-COVERED DRUGS -- BIN:406839 , PCN: ASPROD1, Group: XXXXX, ID# [id number], Questions: . THIS IS NOT INSURANCE.] Duragesic 12 mcg/hr transdermal patch RxNorm: 244762 1 TD q72 hours 12/14/2014 01/02/2015 Inactive [SAVINGS FOR NON-COVERED DRUGS -- BIN:183202, PCN: ASPROD1, Group : XXXXX, ID# XXXXXXX, Questions: . THIS IS NOT INSURANCE.] Duragesic 12 mcg/hr transdermal patch RxNorm: 824963 1 TD q72 hours 11/07/2014 12/13/2014 Inactive [SAVINGS FOR NON-COVERED DRUGS -- BIN:150932, PCN: ASPROD1, Group : XXXXX, ID# XXXXXXX, Questions: . THIS IS NOT INSURANCE.] Vitamin D2 50,000 unit capsule RxNorm: 926730 TAKE 1 CAPSULE WEEKLY (AFTER FINISHED WITH VIT D 32430N FOR THE 12 WEEKS, START OTC VITAMIN D 2000 UNITS DAILY) 10/24/2014 06/20/2016 Inactive Duragesic 12 mcg/hr transdermal patch RxNorm: 023157 1 TD q72 hours 10/11/2014 11/06/2014 Inactive [SAVINGS FOR NON-COVERED DRUGS -- BIN:867709, PCN: ASPROD1, Group : XXXXX, ID# XXXXXXX, Questions: . THIS IS NOT INSURANCE.] Sinemet CR 50 mg-200 mg tablet,extended release RxNorm: 931382 1 Tablet(s) PO BID 10/05/2014 05/02/2015 Inactive Lantus Solostar 100 unit/mL (3 mL) subcutaneous insulin pen RxNorm: 694136 15 Unit(s) SQ daily (may be adjusted for further glucose control) 09/28/2014 08/20/2015 Inactive [SAVINGS FOR UNINSURED PATIENTS -- BIN:643751, PCN: ASPROD1, Group: AME08, ID# [id number], Process claim through [employer], for questions: [phone]. THIS IS NOT INSURANCE.] Duragesic 12 mcg/hr transdermal patch RxNorm: 401042 1 TD q72 hours 09/26/2014 10/10/2014 Inactive [SAVINGS FOR NON-COVERED DRUGS -- BIN:084893, PCN: ASPROD1, Group : XXXXX, ID# XXXXXXX, Questions: . THIS IS NOT INSURANCE.] hydrocodone 5 mg-acetaminophen 325 mg tablet RxNorm: 073429 1 Tablet(s) PO Q4H as needed 09/23/2014 12/20/2014 Inactive [SAVINGS FOR NON-COVERED DRUGS -- BIN:[id number] , PCN: ASPROD1, Group: XXXXX, ID# [id number], Questions: . THIS IS NOT INSURANCE.] Duragesic 12 mcg/hr transdermal patch RxNorm: 330790 1 TD q72 hours 09/09/2014 09/25/2014 Inactive [SAVINGS FOR NON-COVERED DRUGS -- BIN:[id number], PCN: ASPROD1, Group : XXXXX, ID# [id number], Questions: . THIS IS NOT INSURANCE.] carbidopa 25 mg-levodopa 100 mg tablet RxNorm: 019041 2 in the am 1 at noon and 1 katie Tablet(s) PO BID 08/31/20142014 Inactive [SAVINGS FOR NON-COVERED DRUGS -- BIN:[id number], PCN: ASPROD1, Group: XXXXX, ID# [id number], Questions: [phone]. THIS IS NOT INSURANCE.] Vitamin D2 50,000 unit capsule RxNorm: 509835 1 CAPSULE(S) PO WEEKLY X 12 WEEKS 08/15/2014 10/23/2014 Inactive hydrocodone 5 mg-acetaminophen 325 mg tablet RxNorm: 415321 1 Tablet(s) PO Q4H as needed 08/12/2014 09/22/2014 Inactive [SAVINGS FOR NON-COVERED DRUGS -- BIN:[id number] , PCN: ASPROD1, Group: XXXXX, ID# [id number], Questions: . THIS IS NOT INSURANCE.] hydrocodone 10 mg-acetaminophen 325 mg tablet RxNorm: 968020 1/2 to 1 Tablet(s) PO q 4 hours prn for uncontrolled pain 07/14/2014 08/11/2014 Inactive [SAVINGS FOR NON-COVERED DRUGS -- BIN:[id number], PCN: ASPROD1, Group: XXXXX, ID# [id number], Questions: . THIS IS NOT INSURANCE.] gabapentin 100 mg capsule RxNorm: 108202 1 Capsule(s) PO nightly x1week, then twice daily x 1 week, then tihree times daily thereafter 08/20/2015 Inactive [SAVINGS FOR NON-COVERED DRUGS -- BIN:190705, PCN: ASPROD1, Group: XXXXX, ID# [id number], Questions: . THIS IS NOT INSURANCE.] Bactrim DS 800 mg-160 mg tablet RxNorm: 566253 1 Tablet(s) PO BID 07/01/2014 07/07/2014 Inactive [SAVINGS FOR NON-COVERED DRUGS -- BIN:014542, PCN: ASPROD1, Group: XXXXX, ID# [id number], Questions: . THIS IS NOT INSURANCE.] Bactrim DS 800 mg-160 mg tablet RxNorm: 045644 1 Tablet(s) PO BID 07/01/2014 06/30/2014 Inactive Vitamin D2 50,000 unit capsule RxNorm: 949958 1 Capsule(s) PO weekly x 12 weeks 06/07/2014 08/14/2014 Inactive after patient is finished with vit D 97453r for the 12 weeks, she is to start on OTC vitamin D 2000 units daily Keflex 500 mg capsule RxNorm: 417398 1 Capsule(s) PO BID 201405/29/2014 Inactive carbidopa 25 mg-levodopa 100 mg tablet RxNorm: 376265 1 Tablet(s) PO BID 05/30/2014 08/30/2014 Inactive [SAVINGS FOR UNINSURED PATIENTS -- BIN:792539, PCN: ASPROD1 , Group: [id number], ID# [id number], Process claim through [employer], for questions: 1- [phone]. THIS IS NOT INSURANCE.] Keflex 500 mg capsule RxNorm: 963393 1 Capsule(s) PO BID 201406/05/2014 Inactive [SAVINGS FOR UNINSURED PATIENTS -- BIN:441832, PCN: ASPROD1, Group: AME08, ID # [id number], Process claim through [employer], for questions: . THIS IS NOT INSURANCE.] carbidopa 25 mg-levodopa 100 mg tablet RxNorm: 587884 1 Tablet(s) PO BID 05/23/2014 05/29/2014 Inactive [SAVINGS FOR UNINSURED PATIENTS -- BIN:886879, PCN: ASPROD1 , Group: AME08, ID# [id number], Process claim through [employer], for questions: 1- [phone]. THIS IS NOT INSURANCE.] carbidopa 25 mg-levodopa 100 mg tablet RxNorm: 557845 1/2 Tablet(s) PO BID 05/03/2014 05/22/2014 Inactive [SAVINGS FOR UNINSURED PATIENTS -- BIN:213172, PCN: ASPROD1, Group: AME08, ID# [id number], Process claim through [employer], for questions: . THIS IS NOT INSURANCE.] pen needle, diabetic, remover & disposal unit 31 x /16" RxNorm: 1 use Miscellaneous 03/31/2014 09/21/2015 Inactive [SAVINGS FOR UNINSURED PATIENTS -- BIN :035921, PCN: ASPROD1, Group: AME08, ID# [id number], Process claim through [employer], for questions: . THIS IS NOT INSURANCE.] Lantus Solostar 100 unit/mL (3 mL) subcutaneous insulin pen RxNorm: 553164 10 Unit(s) SQ daily (may be adjusted for further glucose control) 03/31/2014 09/27/2014 Inactive [SAVINGS FOR UNINSURED PATIENTS -- BIN:238747, PCN: ASPROD1, Group: AME08, ID# [id number], Process claim through [employer], for questions: . THIS IS NOT INSURANCE.] Vitamin D2 50,000 unit capsule RxNorm: 146077 1 Capsule(s) PO weekly x 12 weeks 03/22/2014 06/06/2014 Inactive after patient is finished with vit D 08838k for the 12 weeks, she is to start on OTC vitamin D 2000 units daily Vitamin D2 50,000 unit capsule RxNorm: 488304 1 Capsule(s) PO weekly x 12 weeks 03/22/2014 03/21/2014 Inactive after patient is finished with vit D 75244o for the 12 weeks, she is to start on OTC vitamin D 2000 units daily metformin 500 mg tablet RxNorm: 139440 1 Tablet(s) PO BID 03/1803/30/2014 Inactive [SAVINGS FOR UNINSURED PATIENTS -- BIN:849467, PCN: ASPROD1, Group: AME08, ID# [id number], Process claim through [employer], for questions: . THIS IS NOT INSURANCE.] Lidoderm 5 % (700 mg/patch) adhesive patch RxNorm: 0347139 1 TOP PRN for back pain. NEEDS PA IF ORDERED AGAIN No Start Date Active diclofenac sodium topical RxNorm: 3355 topical No Start Date Active Lasix 20 mg tablet RxNorm: 323273 Tablet(s) daily x 5 with k 10 daily x 5 PO No Start Date Active multivitamin tablet RxNorm: 1 Tablet(s) PO daily No Start Date Active oxybutynin chloride 5 mg tablet RxNorm: 158833 1 Tablet(s) PO daily No Start Date 03/30/2014 Inactive Sinemet CR 25 mg-100 mg tablet,extended release RxNorm: 203786 2 Tablet(s) PO QID No Start Date 06/19/2016 Inactive Namenda 5 mg tablet RxNorm: 292394 Tablet(s) PO No Start Date 10/11/2015 Inactive amlodipine 2.5 mg tablet RxNorm: 697456 1 Tablet(s) PO daily No Start Date 03/30/2014 Inactive Cozaar 50 mg tablet RxNorm: 735225 1 Tablet(s) PO daily No Start Date 05/21/2016 Inactive Voltaren 1 % topical gel RxNorm: 953186 4 Gram(s) TOP to lower back/hips QID No Start Date 07/10/2016 Inactive hydrochlorothiazide 25 mg tablet RxNorm: 105089 1 Tablet(s) PO daily No Start Date 03/30/2014 Inactive pramipexole 0.25 mg tablet RxNorm: 092103 1 Tablet(s) PO daily No Start Date 05/02/2014 Inactive simvastatin 40 mg tablet RxNorm: 467456 oral No Start Date 05/02/2014 Inactive vitamin [id number] B1 oral liquid RxNorm: PO No Start Date 10/12/2015 Inactive 2000u daily Fosamax Plus D oral RxNorm: 219800 oral No Start Date 05/02/2014 Inactive Actos 45 mg tablet RxNorm: 522618 1 Tablet(s) PO daily No Start Date 03/30/2014 Inactive Duragesic 12 mcg/hr transdermal patch RxNorm: 569382 1 TD q72 hours No Start Date 09/08/2014 Inactive Vitamin D3 2,000 unit capsule RxNorm: 190105 1 Capsule(s) PO daily No Start Date 11/07/2015 Inactive mecobalamin 5,000 mcg disintegrating tablet RxNorm: 0483966 1 Tablet(s) PO daily No Start Date 05/21/2016 Inactive magnesium 250 mg tablet RxNorm: 1 Tablet(s) PO daily No Start Date 05/02/2014 Inactive Refresh Tears 0.5 % eye drops RxNorm: 6998737 1 Drop(s) OPH daily as needed for dry eyes No Start Date 06/27/2016 Inactive furosemide 40 mg tablet RxNorm: 104229 1 Tablet(s) PO daily No Start Date 05/02/2014 Inactive trazodone 50 mg tablet RxNorm: 112191 1 Tablet(s) PO QHS No Start Date 05/21/2016 Inactive glipizide 10 mg tablet RxNorm: 359390 1 Tablet(s) PO daily No Start Date 05/02/2014 Inactive hydrocodone 10 mg-acetaminophen 325 mg tablet RxNorm: 976328 oral No Start Date 07/13/2014 Inactive Refresh ophthalmic RxNorm: 666125 ophthalmic No Start Date 06/28/2016 Inactive capsaicin 0.025 % topical cream RxNorm: 755004 1 Application TOP QID No Start Date 04/15/2016 Inactive Aleve 220 mg tablet RxNorm: 807086 1 Tablet(s) PO daily as needed No Start Date 05/13/2016 Inactive senna 8.6 mg tablet RxNorm: 558655 1 Tablet(s) PO daily as needed No Start Date 10/02/2016 Inactive biotin 1000 mcg RxNorm : 1 Tablet(s) PO daily No Start Date 05/02/2014 Inactive ranitidine 150 mg capsule RxNorm: 538042 2 Capsule(s) PO daily No Start Date 05/02/2014 Inactive hydrocodone 5 mg-acetaminophen 325 mg tablet RxNorm: 244152 1 Tablet(s) PO Q4H as needed No Start Date 08/11/2014 Inactive Calcitrate-Vitamin D oral RxNorm: 1895 oral No Start Date 11/07/2015 Inactive potassium chloride RxNorm: 15393 miscellaneous No Start Date 05/02/2014 Inactive metformin 500 mg tablet RxNorm: 173777 2 Tablet(s) PO daily No Start Date 03/17/2014 Inactive aspirin 81 mg tablet RxNorm: 864080 1 Tablet(s) PO daily No Start Date [...] Item Item Code Result Date Culture Urine [id number] URINE CULTURE SEE NOTES 05/02/2017 Culture Urine [id number] Continued Results 05/02/2017 Urine Culture Ucult Complete [...] U-Com Culture to follow 04/29/2017 Culture Urine [id number] URINE CULTURE SEE NOTES 04/07/2017 Culture Urine [id number] Continued Results 04/07/2017 Urine Culture Ucult Complete [...] U-Com Culture to follow 04/04/2017 Culture Urine [id number] URINE CULTURE SEE NOTES 01/13/2017 Culture Urine [id number] Continued Results 01/13/2017 Urine Culture Ucult Complete [...] Uric A 4.5 mg/dL 07/29/2016 Comp Metabolic Qez806 NA 134 mEq/L 06/26/2016 Comp Metabolic Yvp061 K 4.8 mEq/L 06/26/2016 Comp Metabolic Mqh318 CL 98 mEq/L 06/26/2016 Comp Metabolic Zdy022 CO2 28.0 mEq/L 06/26/2016 Comp Metabolic Vtq582 ANION GAP 13 06/26/2016 Comp Metabolic Ymn814 GLUCOSE 270 mg/dL 06/26/2016 Comp Metabolic Dlc661 Creat 0.9 mg/dL 06/26/2016 Comp Metabolic Skp738 eGFR 68 ml/min/1.73m2 06/26/2016 Comp Metabolic Dzi042 BUN 22 mg/dL 06/26/2016 Comp Metabolic Cja692 B/C Ratio 25.9 Ratio 06/26/2016 Comp Metabolic Hwf249 CALCIUM 9.0 mg/dL 06/26/2016 Comp Metabolic Hlo000 ALK PHOS 119 U/L 06/26/2016 Comp Metabolic Ihb135 AST(SGOT) 34 U/L 06/26/2016 Comp Metabolic Smu766 ALT(SGPT) 18 U/L 06/26/2016 Comp Metabolic Gmh432 BILI T 0.5 mg/dL 06/26/2016 Comp Metabolic Qkg065 ALBUMIN 4.1 g/dL 06/26/2016 Comp Metabolic Gls874 TPRO 6.8 g/dL 06/26/2016 Comp Metabolic Moc068 GLOB 2.7 g/dL 06/26/2016 Comp Metabolic Wxf990 A/G Ratio 1.5 Ratio 06/26/2016 Comp Metabolic Cmm257 Osmo 281 mOsmo 06/26/2016 Tsh Ord6 hTSH II 1.57 uIU/mL 06/26/2016 %Hba1C Mye498 % HbA1c 71554-7 7.6 % 06/26/2016 %Hba1C Yde777 Gluc Ave 171 mg/dL 06/26/2016 Lipid Ord30 CHOL 225 mg/dL 06/26/2016 Lipid Ord30 HDL 49.0 mg/dl 06/26/2016 Lipid Ord30 TRIG 208 mg/dL 06/26/2016 Lipid Ord30 LDL 134 mg/dL 06/26/2016 Lipid Ord30 C/HDL 4.6 Ratio 06/26/2016 Vitamin D 25 Oh Foy5095 VITAMIN D, 25 HYDROXY 65.10 ng/mL Culture Urine [id number] URINE CULTURE SEE NOTES 03/11/2016 Culture Urine [id number] Continued Results 03/11/2016 Urine Culture Ucult Complete [...] Ord15 CALCIUM 9.5 mg/dL 01/24/2016 Culture Urine [id number] URINE CULTURE SEE NOTES 12/29/2015 Culture Urine [id number] Continued Results 12/29/2015 Urine Culture Ucult Complete >100,000 col/ml aerobic growth sent to ref lab 12/27/2015 %Hba1C Bpm883 % HbA1c 05257-1 8.3 % 12/26/2015 %Hba1C Uhv760 Gluc Ave 192 mg/dL 12/26/2015 Culture Urine [id number] URINE CULTURE SEE NOTES 10/09/2015 Culture Urine [id number] Continued Results 10/09/2015 Urine Culture Ucult Complete [...] hTSH II 1.24 uIU/mL 09/13/2015 Comp Metabolic Cee768 NA 137 mEq/L 09/13/2015 Comp Metabolic Pra988 K 4.5 mEq/L 09/13/2015 Comp Metabolic Dgq020 CL 100 mEq/L 09/13/2015 Comp Metabolic Jil306 CO2 28.0 mEq/L 09/13/2015 Comp Metabolic Rln273 ANION GAP 14 09/13/2015 Comp Metabolic Frm468 GLUCOSE 124 mg/dL 09/13/2015 Comp Metabolic Qeh168 Creat 0.9 mg/dL 09/13/2015 Comp Metabolic Xbn129 eGFR 65 ml/min/1.73m2 09/13/2015 Comp Metabolic Lgx249 BUN 20 mg/dL 09/13/2015 Comp Metabolic Xhz424 B/C Ratio 22.7 Ratio 09/13/2015 Comp Metabolic Yld063 CALCIUM 8.8 mg/dL 09/13/2015 Comp Metabolic Qag303 ALK PHOS 64 U/L 09/13/2015 Comp Metabolic Tlc654 AST(SGOT) 16 U/L 09/13/2015 Comp Metabolic Rwr787 ALT(SGPT) 13 U/L 09/13/2015 Comp Metabolic Vkt984 BILI T 0.7 mg/dL 09/13/2015 Comp Metabolic Emx868 ALBUMIN 3.9 g/dL 09/13/2015 Comp Metabolic Jzo087 TPRO 6.7 g/dL 09/13/2015 Comp Metabolic Vpn708 GLOB 2.8 g/dL 09/13/2015 Comp Metabolic Ohe665 A/G Ratio 1.4 Ratio 09/13/2015 Comp Metabolic Uuw029 Osmo 278 mOsmo 09/13/2015 Cbc With Differential [...] 30.1 pg 09/13/2015 Cbc With Differential Ord2 Carver% 6.6 % 09/13/2015 Cbc With Differential Ord2 [...] 1.66 K/ul 09/13/2015 Cbc With Differential Ord2 Carver ABS# 0.4 K/ul 09/13/2015 Cbc With Differential Ord2 Eos ABS# 0.1 K/ul 09/13/2015 Cbc With Differential Ord2 Baso ABS# 0.0 K/ul 09/13/2015 Cbc With Differential Ord2 New Analyzer Notice Please note new ref ranges starting 05-10-2015 due to implemntation of new five part differential hematolgy analyzer. 09/13/2015 %Hba1C Rlv094 % HbA1c 13866-4 9.1 % 09/13/2015 %Hba1C Uuh821 Gluc Ave 214 mg/dL 09/13/2015 Urine Culture [...] U-Com Culture to follow 09/08/2015 Culture Urine [id number] URINE CULTURE SEE NOTES 03/03/2015 Culture Urine [id number] Continued Results 03/03/2015 Urine Culture Ucult Complete [...] U-Yeast NEGATIVE 01/17/2015 Vitamin D 25 Oh Lwj3929 VITAMIN D, 25 HYDROXY 48.78 ng/mL Comp Metabolic Srn917 NA 135 mEq/L 12/13/2014 Comp Metabolic Uyd570 K 4.5 mEq/L 12/13/2014 Comp Metabolic Yfn545 CL 101 mEq/L 12/13/2014 Comp Metabolic Set609 CO2 28.0 mEq/L 12/13/2014 Comp Metabolic Tgi207 ANION GAP 11 12/13/2014 Comp Metabolic Luo177 GLUCOSE 90 mg/dL 12/13/2014 Comp Metabolic Aid862 Creat 1.1 mg/dL 12/13/2014 Comp Metabolic Lim984 eGFR 50 ml/min/1.73m2 12/13/2014 Comp Metabolic Nkk686 BUN 19 mg/dL 12/13/2014 Comp Metabolic Jci250 B/C Ratio 17.1 Ratio 12/13/2014 Comp Metabolic Nfx056 CALCIUM 9.3 mg/dL 12/13/2014 Comp Metabolic Nml752 ALK PHOS 74 U/L 12/13/2014 Comp Metabolic Shw323 AST(SGOT) 16 U/L 12/13/2014 Comp Metabolic Rst796 ALT(SGPT) 3 U/L 12/13/2014 Comp Metabolic Bdt362 BILI T 0.4 mg/dL 12/13/2014 Comp Metabolic Fsq950 ALBUMIN 3.7 g/dL 12/13/2014 Comp Metabolic Amo802 TPRO 6.4 g/dL 12/13/2014 Comp Metabolic Skl541 GLOB 2.7 g/dL 12/13/2014 Comp Metabolic Rmn653 A/G Ratio 1.4 Ratio 12/13/2014 Comp Metabolic Wtf109 Osmo 272 mOsmo 12/13/2014 Tsh Ord6 hTSH [...] Differential Ord2 RDW 15.1 % 12/13/2014 %Hba1C Jan179 % HbA1c 90569-8 7.2 % 12/13/2014 %Hba1C Zgt330 Gluc Ave 160 mg/dL 12/13/2014 Review of [...] lips 07/19/2014 None Full Exam - General 1995 Ears/Nose/Throat lips/teeth/gingiva Overall: normal dentition 07/19/2014 None [...] clear 03/31/2014 None Full Exam - General 1995 Ears/Nose/Throat oral cavity/pharynx/larynx Overall: hypopharynx benign 03/31/2014 None Full Exam - General 1995 Ears/Nose/Throat oral cavity/pharynx/larynx Overall: no masses 03/31/2014 [...] Codes Date URINALYSIS NONAUTO W/O SCOPE CPT-4: 53844 12/26/2015 URINALYSIS NONAUTO W/O SCOPE CPT-4: 15082 12/09/2014 URINALYSIS NONAUTO W/O SCOPE CPT-4: 75955 07/12/2014 Vital Signs Date Vital 01/09/2017 Blood Pressure 1: 144/82 Code : 8480-6 BMI: 36.8 Code : 10745-8 Heart Rate 1 : 84 bpm Height: 4'11" SpO2: 95% Weight: 182 lbs 09/27/2016 Blood Pressure 1: 152/74 Code : 8480-6 BMI: 38.1 Code : 97048-5 Heart Rate 1 : 80 bpm Height: 4'11" SpO2: 95% Weight: 188 lbs 8 oz 07/29/2016 Blood Pressure 1: 152/76 Code : 8480-6 BMI: 39.0 Code : 30546-7 Heart Rate 1 : 90 bpm Height: 4'11" SpO2: 97% Weight: 193 lbs 06/28/2016 Blood Pressure 1: 130/74 Code : 8480-6 BMI: 40.6 Code : 57491-0 Heart Rate 1 : 85 bpm Height: 4'11" SpO2: 97% Weight: 201 lbs 03/26/2016 Blood Pressure 1: 130/62 Code : 8480-6 Heart Rate 1: 76 bpm Height: SpO2: 93% Weight: 03/07/2016 Blood Pressure 1: 144/60 Code : 8480-6 BMI: 40.4 Code : 76795-8 Heart Rate 1 : 85 bpm Height: 4'11" SpO2: 95% Weight: 200 lbs 01/24/2016 Blood Pressure 1: 134/50 Code : 8480-6 BMI: 40.4 Code : 95218-3 Heart Rate 1 : 91 bpm Height: 4'11" SpO2: 96% Weight: 200 lbs 01/19/2016 Blood Pressure 1: 158/72 Code : 8480-6 BMI: 40.8 Code : 69759-6 Heart Rate 1 : 82 bpm Height: 4'11" SpO2: 96% Weight: 202 lbs 01/16/2016 Blood Pressure 1: 164/70 Code : 8480-6 BMI: 41.2 Code : 23751-4 Heart Rate 1 : 87 bpm Height: 4'11" SpO2: 94% Weight: 204 lbs 12/26/2015 Blood Pressure 1: 142/70 Code : 8480-6 BMI: 40.4 Code : 68887-2 Heart Rate 1 : 89 bpm Height: 4'11" SpO2: 98% Weight: 200 lbs 10/12/2015 Blood Pressure 1: 140/68 Code : 8480-6 BMI: 39.6 Code : 59836-9 Heart Rate 1 : 81 bpm Height: 4'11" SpO2: 96% Weight: 196 lbs 09/08/2015 Blood Pressure 1: 130/80 Code : 8480-6 BMI: 38.8 Code : 38661-4 Heart Rate 1 : 94 bpm Height: 4'11" SpO2: 95% Weight: 192 lbs 08/21/2015 Blood Pressure 1: 128/82 Code : 8480-6 BMI: 38.4 Code : 85956-1 Heart Rate 1 : 84 bpm Height: 4'11" SpO2: 96% Weight: 190 lbs 02/16/2015 Blood Pressure 1: 138/68 Code : 8480-6 BMI: 37.2 Code : 09620-9 Heart Rate 1 : 81 bpm Height: 4'11" SpO2: 95% Weight: 184 lbs 01/16/2015 Blood Pressure 1: 134/64 Code : 8480-6 BMI: 36.8 Code : 21693-2 Heart Rate 1 : 76 bpm Height: [...] Weight: 172 lbs 05/03/2014 BMI: 36.2 Code: 74772-7 Height: 4'11" Weight: 179 lbs 03/31/2014 Blood Pressure 1: 112/68 Code : 8480-6 BMI: 35.1 Code : 09719-9 Heart Rate 1 : 74 bpm Height: 4'11" Weight: 174 lbs 03/18/2014 Blood Pressure 1: 138/70 Code : 8480-6 BMI: 37.0 Code : 43169-5 Heart Rate 1 : 78 bpm Height: [...] Urgency of urination[ICD10: R39.15] Tanvi Islas MD, [facility] CPT-4: 81205 01/09/2017 ([id number]) 92013 EST. PATIENT, LEVEL IV Diagnosis: Essential (primary) hypertension[ICD10: I10] Diagnosis: Type 2 diabetes mellitus with hyperglycemia[ICD10: E11.65] Diagnosis: Parkinson's disease[ICD10: G20] Diagnosis: Bilateral primary osteoarthritis of hip[ICD10: M16.0] Amee Islas MD, [facility] CPT-4: 22196 09/27/2016 47136 EST. PATIENT, LEVEL IV Diagnosis: Pain in right toe(s)[ICD10: M79.674] Diagnosis: Localized edema[ICD10: R60.0] Diagnosis: Low back pain[ICD10: M54.5] Tanvi Islas MD, [facility] CPT-4 : 42170 07/29/2016 ([id number]) 09432 EST. PATIENT, LEVEL III Diagnosis: Pain in left hip[ICD10: M25.552] Amee Islas MD, [facility] CPT-4: 21461 06/28/2016 ([id number]) 73642 EST. PATIENT, LEVEL IV Diagnosis: Type 2 diabetes mellitus with hyperglycemia[ICD10: E11.65] Diagnosis: Parkinson's disease[ICD10: G20] Diagnosis: Essential (primary) hypertension[ICD10: I10] Diagnosis: Muscle weakness (generalized)[ICD10: M62.81] Diagnosis: Localized edema[ICD10: R60.0] Celesitna Islas MD, [facility] CPT- 4: 45927 03/26/2016 08932 EST. PATIENT, LEVEL III Diagnosis: Dysuria[ICD10: R30.0] Diagnosis: Left upper quadrant pain[ICD10: R10.12] Tanvi Islas MD, [facility] CPT-4: 54349 03/07/2016 63783 EST. PATIENT, LEVEL IV Diagnosis: Encounter for follow-up examination after completed treatment for conditions other than malignant neoplasm[ICD10: Z09] Tanvi Islas MD, [facility] CPT-4: 64377 01/24/2016 ([id number]) Miscellaneous no charge Diagnosis: Localized edema[ICD10: R60.0] Tanvi Islas MD, [facility] CPT-4 : 66125 01/19/2016 40406 EST. PATIENT, LEVEL IV Diagnosis: Localized edema[ICD10: R60.0] Diagnosis: Other skin changes[ICD10: R23.8] Diagnosis: Low back pain[ICD10: M54.5] Tanvi Islas MD, [facility] CPT-4 : 04327 01/16/2016 ([id number]) 16694 EST. PATIENT, LEVEL IV Diagnosis: Type 2 diabetes mellitus with hyperglycemia[ICD10: E11.65] Diagnosis: Parkinson's disease[ICD10: G20] Diagnosis: Essential (primary) hypertension[ICD10: I10] Diagnosis: Dysuria[ICD10: R30.0] Diagnosis: Low back pain[ICD10: M54.5] Celestina Islas MD, [facility] CPT- 4: 89692 12/26/2015 ([id number]) 26987 EST. PATIENT, LEVEL IV Diagnosis: Type 2 diabetes mellitus with hyperglycemia[ICD10: E11.65] Diagnosis: Parkinson's disease[ICD10: G20] Diagnosis: Essential (primary) hypertension[ICD10: I10] Diagnosis: Bilateral primary osteoarthritis of hip[ICD10: M16.0] Celestina Islas MD, [facility] CPT-4: 87063 10/12/2015 [id number] 11800 EST. PATIENT, LEVEL III Diagnosis: Essential (primary) hypertension[ICD10: I10] Diagnosis: Localized edema[ICD10: R60.0] Diagnosis: Unsteadiness on feet[ICD10: R26.81] Diagnosis: Muscle weakness (generalized)[ICD10: M62.81] Diagnosis: Bilateral primary osteoarthritis of hip[ICD10: M16.0] Amee Islas MD, [facility] CPT-4: 28345 09/08/[phone]) 19224 EST. PATIENT, LEVEL IV Diagnosis: Type 2 diabetes mellitus with hyperglycemia[ICD10: E11.65] Diagnosis: Essential (primary) hypertension[ICD10: I10] Diagnosis: Muscle weakness (generalized)[ICD10: M62.81] Diagnosis: Parkinson's disease[ICD10: G20] Diagnosis: Low back pain[ICD10: M54.5] Amee Islas MD, [facility] CPT-4: 42355 08/21/2015 ([id number]) 04339 EST. PATIENT, LEVEL IV Diagnosis: Parkinson's disease[ICD10: G20] Diagnosis: Essential (primary) hypertension[ICD10: I10] Diagnosis: Type 2 diabetes mellitus with hyperglycemia[ICD10: E11.65] Diagnosis: Pain in unspecified hip[ICD10: M25.559] Celestina Islas MD, [facility] CPT-4: 84290 02/16/2015 [id number]) 17682 EST. PATIENT, LEVEL IV Diagnosis: Dysuria[ICD9: 788.1] Diagnosis: Parkinson's disease[ICD9: 332.0] Diagnosis: ESSENTIAL HYPERTENSION[ICD9: 401.9] Amee Islas MD, [facility] CPT-4: 52269 01/16/2015 [id number]) 33723 EST. PATIENT, LEVEL IV Diagnosis: UTI (urinary tract infection)[ICD9: 599.0] Diagnosis: DM W/O COMPLICATION TYPE II, UNCONTROLLED[ICD9: 250.02] Diagnosis: ESSENTIAL HYPERTENSION[ICD9: 401.9] Diagnosis: EDEMA[ICD9: 782.3] Celestina Islas MD [facility] CPT-4: 54726 12/09/2014 ([id number]) 73077 EST. PATIENT, LEVEL IV Diagnosis: ESSENTIAL HYPERTENSION[ICD9: 401.9] Diagnosis: DIABETES TYPE II[ICD9: 250.00] Diagnosis: Parkinson's disease[ICD9: 332.0] Celestina Islas MD [facility] CPT-4: 71729 09/28/2014 ([id number]) Patient admitted to the hospital from clinic (NO CHARGE) Diagnosis: Back pain[ICD9: 724.5] Diagnosis: EDEMA[ICD9: 782.3] Diagnosis: MALAISE AND FATIGUE[ICD9: 780.79] Diagnosis: Parkinson's disease[ICD9: 332.0] Diagnosis: ESSENTIAL HYPERTENSION[ICD9: 401.9] Diagnosis: Cellulitis[ICD9: 682.9] Diagnosis: Hip pain[ICD9: 719.45] Celestina Islas MD, [facility] CPT-4: 03674O 07/19/2014 ([id number]) 81792 EST. PATIENT, LEVEL IV Diagnosis: DM W/O COMPLICATION TYPE II, UNCONTROLLED[ICD9: 250.02] Diagnosis: Back pain[ICD9: 724.5] Diagnosis: EDEMA[ICD9: 782.3] Diagnosis: Parkinson's disease[ICD9: 332.0] Celestina Islas MD [facility] CPT-4: 04655 07/12/2014 ([id number]) 73254 EST. PATIENT, LEVEL IV Diagnosis: EDEMA[ICD9: 782.3] Diagnosis: Chronic osteoarthritis[ICD9: 715.90] Diagnosis: Bilateral arm weakness[ICD9: 729.89] Diagnosis: Parkinson's disease[ICD9: 332.0] Diagnosis: Back pain[ICD9: 724.5] Celestina Islas MD, [facility] CPT-4: 69503 05/03/2014 ([id number]) 96662 EST. PATIENT, LEVEL IV Diagnosis: DM W/O COMPLICATION TYPE II, UNCONTROLLED[ICD9: 250.02] Diagnosis: ESSENTIAL HYPERTENSION[ICD9: 401.9] Diagnosis: EDEMA[ICD9: 782.3] Diagnosis: MALAISE AND FATIGUE[ICD9: 780.79] [facility] CPT-4: 93025 03/31/2014 ([id number]) OFFICE/OUTPATIENT VISIT NEW Diagnosis: ESSENTIAL HYPERTENSION[ICD9: 401.9] Diagnosis: DM W/O COMPLICATION TYPE II, UNCONTROLLED[ICD9: 250.02] Diagnosis: OBESITY[ICD9: 278.00] Diagnosis: EDEMA[ICD9: 782.3] Diagnosis: MALAISE AND FATIGUE[ICD9: 780.79] Diagnosis: Restless leg[ICD9: 333.94] [facility] CPT- 4: 09396 03/18/2014 Plan of Care Planned Activity Notes [...] or concerns. 01/09/2017 Appointment: Tanvi Wiggins WPtel: [address] [place], [place] [phone] (30 min) [facility] 01/09/2017 Patient Education: Patient Medication Summary Completed [...] of over-medication. 09/27/2016 Appointment: Amee Esteves WPtel: [phone] (30 min) Complex 09/27/2016 Patient Education: Patient [...] peripheral edema. 07/29/2016 Appointment: Tanvi Wiggins WPtel: [phone] (30 min) Complex 07/29/2016 Patient Education: Patient Medication Summary Completed 07/29/2016 Patient Education: Obesity Completed 07/29/2016 Visit Plan: Left hip pain-recent fall-ER f/u-pain improving -no changes in treatment at this time. 06/28/2016 Appointment: Amee Esteves WPtel: [phone] [place] (30 min) Complex 06/28/2016 Patient Education: [...] with lasix. 03/26/2016 Appointment: Celestina Islas WPtel: [phone] [facility] (15 min) Moderate 03/26/2016 Patient Education: Patient Medication Summary Completed 03/26/2016 Care Plan: COMPLETE CBC AUTOMATED LOINC : 27209-7 Pending 03/26/2016 Care Plan: MICROALBUMIN QUANTITATIVE LOINC : 56086-9 Pending 03/26/2016 Visit Plan: Left flank pain/UTI - pt with positive urinalysis - culture sent if appropriate. Antibiotic electronically prescribed to pt's pharmacy of choice. Pt to call if symptoms do not improve. 03/07/2016 Appointment: Tanvi Wiggins WPtel: [phone] [phone] (30 min) Complex 03/07/2016 Patient Education: Patient [...] edema. 01/24/2016 Appointment: Amee Esteves WPtel: [phone] [phone] [place] (30 min) Complex 01/24/2016 Patient Education: [...] acute concerns. 01/16/2016 Appointment: Amee Esteves WPtel: [phone] [phone] (30 min) Complex 01/16/2016 Patient Education: Patient [...] treatment. 12/26/2015 [phone] ([facility] min) Moderate 12/26/2015 Patient Education: Patient [...] prn hydrocodone 10/12/2015 Appointment: Celestina Islas WPtel: [phone] [place] [facility] [place] ([facility] [place] Moderate 10/12/2015 Patient Education: [...] kcl 10meq daily x 5 days Gait pwcqkvktbpl-udwltujm-NM of hips-chronic back pain-RX for wheelchair 09/08/2015 [...] 5 days 09/08/2015 Appointment: Amee Esteves WPtel: [phone] [id number] [place] (30 min) Complex 09/08/2015 Patient Education: [...] 08/21/2015 Care Plan: Referral Order SNOMED-CT : [id number] Ordered 02/19/2015 Visit Plan: Parkinson's Disease - [...] - monitor symptoms. Will refer pt to [facility]. Hypertension - well controlled - continue [...] less controlled. 02/16/2015 Appointment: Celestina Islas WPtel: [address] [place], [place] [id number] (15 min) Moderate 02/16/2015 Patient Education: Patient [...] Care Plan: COMPLETE CBC AUTOMATED LOINC : 33898-8 Ordered 12/09/2014 Visit Plan: Hypertension - well [...] control. 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 dm - resume home medications htn - resume home medications. 07/19/2014 Appointment: [facility]las [facility]el[facility] [phone] [facility] [facility] 07/19/2014 Patient Education: Patient Medication Summary Completed [...] - stable -per patient report. 07/12/2014 [place] [phone] [facility] [facility] 07/12/2014 Patient Education: Patient Medication [...] chair. 05/03/2014 Appointment: [facility] [phone] [facility] [facility] 05/03/2014 Patient Education: Patient Medication [...] edema. 03/31/2014 Appointment: [facility] [phone] [facility] [facility] 03/31/2014 Patient Education: Patient Medication [...] and friday03/18/2014 Appointment: [facility]las [facility]el[facility] [phone] [facility] [facility] 03/18/2014 Patient Education: Patient Medication [...] kcl 10meq daily x 5 days Gait wzmefyyfkut-skubqvwa-LJ of hips-chronic back pain-RX for wheelchair . 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 dm - resume home medications htn - [...] - monitor symptoms. Will refer pt to [facility]. Hypertension - well controlled - continue [...]
--- OUTSIDE RECORDS SUMMARY | 2017-07-29 19:43 | XMS REPORT | CCD ---
Author Celestina Juares Organization [facility] Address [facility] [place] [address] Phone Care Team Providers Care Healthcare Interpreter Name Role Phone PP Unavailable CCM Unavailable Summary Purpose Interface Exchange Insurance Providers Payer name Policy type / Coverage type Covered constitution party ID Effective Begin Date Effective End Date WPS Medicare Part B Medicare Part B [id number] Unknown Unknown FOR LIFE WPS Medicare Part B [id number] Unknown Unknown Family history Mother Diagnosis Age At Onset No Family Disease Entered N/A Social History Social History Element Codes Description Effective Dates Living arrangements Unknown Assisted Living [facility] 11/08/2015 Education level Unknown College Graduate 10/12/2015 Marital status Unknown 03/18/2014 Number of children Unknown 5 03/18/[address]: 908617356 Never smoker 03/18/[address]: 455927355 Never drinks alcohol 03/18/2014 Allergies, Adverse Reactions, [...] Instructions Duragesic 25 mcg/hr transdermal patch RxNorm: 554262 1 Patch TD Q72H 06/09/2017 07/08/2017 Active Duragesic 12 mcg/hr transdermal patch RxNorm: 622466 1 Patch TD Q72H 06/09/2017 07/08/2017 Active Keflex 500 mg capsule RxNorm: 977566 1 Capsule(s) PO TID 201706/04/2017 Inactive Keflex 500 mg capsule RxNorm: 331965 1 Capsule(s) PO TID 201705/28/2017 Inactive senna 8.6 mg tablet RxNorm: 813428 Tablet(s) TAKE 2 TABLETS BY MOUTH DAILY 05/26/2017 12/21/2017 Active Generic For:SENOKOT TABLET 10/03/2016 9:56:42 AM 10/03 9:56:41 AM Ocuvite with Lutein 1,000 unit-200 mg-60 unit-2mg tablet RxNorm: 1 Tablet(s) PO daily 05/26/2017 12/21/2017 Active Duragesic 12 mcg/hr transdermal patch RxNorm: 002552 1 Patch TD Q72H 05/23/2017 06/08/2017 Inactive Aleve 220 mg tablet RxNorm: 496713 Tablet(s) TAKE ONE TABLET BY MOUTH TWICE DAILY 05/12/2017 09/08/2017 Active 05/13/2016 8:39:57 AM Lantus 100 unit/mL subcutaneous solution RxNorm: 048792 INJECT 30 UNITS SUBCUTANEOUSLY DAILY 05/05/20172018 Active 05/05/2017 11:15:06 AM Augmentin 500 mg-125 mg tablet RxNorm: 306407 1 Tablet(s) PO TID 05/02/2017 05/01/2017 Inactive Augmentin 500 mg-125 mg tablet RxNorm: 720418 1 Tablet(s) PO TID 05/02/2017 05/08/2017 Inactive Vesicare 5 mg tablet RxNorm: 415591 1 Tablet(s) PO daily 201608/21/2017 Active gabapentin 100 mg capsule RxNorm: 116677 TAKE 1 CAPSULE BY MOUTH DAILY 04/24/2017 10/20/2017 Active Generic For:NEURONTIN 100 MG CAPSULE 04/24/2017 12:21:48 PM Duragesic 12 mcg/hr transdermal patch RxNorm: 246352 1 Patch TD Q72H 04/22/2017 05/21/2017 Inactive Duragesic 25 mcg/hr transdermal patch RxNorm: 108833 1 Patch TD Q72H 04/22/2017 05/21/2017 Inactive capsaicin 0.025 % topical cream RxNorm: 295298 APPLY TOPICALLY FOUR TIMES DAILY 04/10/2017 07/26/2017 Active 04/10/2017 11:05:24 AM N O T I C E Last quantity doesn't match original quantity Duragesic 12 mcg/hr transdermal patch RxNorm: 298506 1 Patch TD Q72H 03/24/2017 04/21/2017 Inactive Duragesic 25 mcg/hr transdermal patch RxNorm: 241577 1 Patch TD Q72H 03/24/2017 04/21/2017 Inactive Duragesic 12 mcg/hr transdermal patch RxNorm: 033619 1 Patch TD Q72H 02/20/2017 03/21/2017 Inactive Voltaren 1 % topical gel RxNorm: 088272 APPLY 4 GRAMS TO LOWER BACK/HIPS FOUR TIMES DAILY 02/13/2017 03/26/2017 Inactive Generic For:VOLTAREN GEL 1% 02/12/2017 9:20:40 AM Vesicare 5 mg tablet RxNorm: 989284 1 Tablet(s) PO daily 201605/04/2017 Inactive Vesicare 5 mg tablet RxNorm: 279144 1 Tablet(s) PO daily 201602/04/2017 Inactive Cozaar 50 mg tablet RxNorm: 469872 TAKE 1 TABLET BY MOUTH DAILY 01/31/2017 07/29/2017 Active Generic For:*COZAAR 50 MG TABLET 01/30/2017 3:58:13 PM Namenda 10 mg tablet RxNorm: 182541 TAKE 1 TABLET BY MOUTH TWICE DAILY 01/31/2017 06/29/2017 Active Generic For:NAMENDA 10MG TAB 01/30/2017 3:57:01 PM gabapentin 300 mg capsule RxNorm: 802455 TAKE 1 CAPSULE(S) BY MOUTH TWICE DAILY 01/31/2017 06/29/2017 Active Generic For:NEURONTIN 300 MG CAPSULE 01/30/2017 3:59: 00 PM trazodone 50 mg tablet RxNorm: 919028 TAKE 1 TABLET BY MOUTH DAILY 01/31/2017 07/29/2017 Active Generic For:DESYREL 50 MG TABLET 01/30/2017 3:57:33 PM Duragesic 12 mcg/hr transdermal patch RxNorm: 685687 1 Patch TD Q72H 01/23/2017 02/19/2017 Inactive Duragesic 25 mcg/hr transdermal patch RxNorm: 557774 1 Patch TD Q72H 01/21/2017 02/19/2017 Inactive Keflex 500 mg capsule RxNorm: 554719 1 Capsule(s) PO TID 201601/09/2017 Inactive Keflex 500 mg capsule RxNorm: 129589 1 Capsule(s) PO TID 201601/19/2017 Inactive Duragesic 12 mcg/hr transdermal patch RxNorm: 816941 1 Patch TD Q72H 12/27/2016 01/22/2017 Inactive Duragesic 25 mcg/hr transdermal patch RxNorm: 506999 1 Patch TD Q72H 12/03/2016 01/01/2017 Inactive Duragesic 12 mcg/hr transdermal patch RxNorm: 246779 1 Patch TD Q72H 11/21/2016 12/20/2016 Inactive Voltaren 1 % topical gel RxNorm: 676775 APPLY 4 GRAMS TO LOWER BACK/HIPS FOUR TIMES DAILY 11/14/2016 12/25/2016 Inactive Generic For:VOLTAREN GEL 1% 11/14/2016 11:44:09 AM capsaicin 0.025 % topical cream RxNorm: 543410 1 Application TOP QID 11/11/2016 04/09/2017 Inactive Lantus 100 unit/mL subcutaneous solution RxNorm: 249715 30 Unit(s) SQ daily 11/11/2016 05/04/2017 Inactive Ocuvite with Lutein 1,000 unit-200 mg-60 unit-2mg tablet RxNorm: 1 Tablet(s) PO daily 11/08/2016 05/25/2017 Inactive gabapentin 100 mg capsule RxNorm: 311317 TAKE 1 CAPSULE BY MOUTH DAILY 11/08/2016 04/23/2017 Inactive Generic For:NEURONTIN 100 MG CAPSULE 11/08/2016 9:16:54 AM N O T I C E Last quantity doesn't match original quantity Duragesic 25 mcg/hr transdermal patch RxNorm: 148991 1 Patch TD Q72H 11/04/2016 12/02/2016 Inactive Duragesic 12 mcg/hr transdermal patch RxNorm: 610614 1 Patch TD Q72H 10/21/2016 11/19/2016 Inactive Duragesic 25 mcg/hr transdermal patch RxNorm: 621027 1 Patch TD Q72H 10/10/2016 11/03/2016 Inactive senna 8.6 mg tablet RxNorm: 732542 Tablet(s) TAKE 2 TABLETS BY MOUTH DAILY 10/08/2016 05/05/2017 Inactive Generic For:SENOKOT TABLET 10/03/2016 9:56:42 AM 9:56:41 AM senna 8.6 mg tablet RxNorm: 461986 TAKE 2 TABLETS BY MOUTH DAILY 10/03/2016 10/07/2016 Inactive Generic For:SENOKOT TABLET 10/03/2016 9:56:42 AM 10/03/2016 9:56: 41 AM Duragesic 12 mcg/hr transdermal patch RxNorm: 424714 1 Patch TD Q72H 09/25/2016 10/20/2016 Inactive mecobalamin (vitamin B12) 5,000 mcg disintegrating tablet RxNorm: 1189056 1 Tablet (s) PO daily 09/13/2016 08/08/2017 Active gabapentin 300 mg capsule RxNorm: 493100 1 Capsule(s) PO BID 01/30/2017 Inactive Namenda 10 mg tablet RxNorm: 703527 TAKE 1 TABLET BY MOUTH TWICE DAILY 09/13/2016 01/30/2017 Inactive Generic For:NAMENDA 10MG TAB 09/13/2016 2:21:26 PM N O T I C E Last quantity doesn't match original quantity trazodone 50 mg tablet RxNorm: 441903 TAKE 1 TABLET BY MOUTH DAILY 09/13/2016 01/30/2017 Inactive Generic For:DESYREL 50 MG TABLET 09/13/2016 2:21:21 PM N O T I C E Last quantity doesn't match original quantity Cozaar 50 mg tablet RxNorm: 390907 TAKE 1 TABLET BY MOUTH DAILY 09/13/2016 01/30/2017 Inactive Generic For:*COZAAR 50 MG TABLET 09/13/2016 2:21:15 PM N O T I C E Last quantity doesn't match original quantity Duragesic 25 mcg/hr transdermal patch RxNorm: 447531 1 Patch TD Q72H 09/09/2016 10/08/2016 Inactive Voltaren 1 % topical gel RxNorm: 778174 4 Gram(s) TOP to lower back/hips QID 09/02/2016 11/13/2016 Inactive Duragesic 12 mcg/hr transdermal patch RxNorm: 540014 1 Patch TD Q72H 08/21/2016 09/19/2016 Inactive Myrbetriq 50 mg tablet,extended release RxNorm: 2253623 TAKE 1 TABLET BY MOUTH DAILY 08/15/2016 03/12/2017 Inactive 08/15/2016 1:38:02 PM N O T I C E Last quantity doesn't match original quantity gabapentin 100 mg capsule RxNorm: 096612 TAKE 1 CAPSULE BY MOUTH DAILY 08/15/2016 11/07/2016 Inactive Generic For:NEURONTIN 100 MG CAPSULE 08/15/2016 1:37:55 PM N O T I C E Last quantity doesn't match original quantity hydrocodone 5 mg-acetaminophen 325 mg tablet RxNorm: 510115 1 Tablet(s) PO Q4H as needed 08/08/2016 09/06/2016 Inactive Keflex 500 mg capsule RxNorm: 689926 1 Capsule(s) PO TID 201608/04/2016 Inactive Duragesic 12 mcg/hr transdermal patch RxNorm: 609239 1 Patch TD Q72H 07/24/2016 08/20/2016 Inactive Mirapex 1 mg tablet RxNorm: 145031 TAKE 1 TABLET BY MOUTH THREE TIMES DAILY 07/17/2016 10/14/2016 Inactive Generic For:MIRAPEX 1MG TAB BOEH 07/17/2016 10:01: 58 AM carbidopa 25 mg-levodopa 100 mg tablet RxNorm: 380520 TAKE 2 TABLETS BY MOUTH FOUR TIMES DAILY 07/17/2016 10/14/2016 Inactive Generic For:SINEMET-25/100 TABLET 07/17/2016 10:02:12 AM Duragesic 25 mcg/hr transdermal patch RxNorm: 378757 1 Patch TD q72 hours 07/15/2016 08/13/2016 Inactive Voltaren 1 % topical gel RxNorm: 218816 4 Gram(s) TOP to lower back/hips QID 07/11/2016 09/01/2016 Inactive capsaicin 0.025 % topical cream RxNorm: 189958 1 Application TOP QID 07/05/2016 11/10/2016 Inactive Refresh Tears 0.5 % eye drops RxNorm: 9323094 1 Drop(s) OPH daily as needed for dry eyes 06/28/2016 No Stop Date Active Duragesic 12 mcg/hr transdermal patch RxNorm: 125720 1 TD q72 hours 06/27/2016 07/23/2016 Inactive Vitamin D2 50,000 unit capsule RxNorm: 121968 TAKE 1 CAPSULE BY MOUTH WEEKLY 06/21/2016 07/18/2016 Inactive Generic For:DRISDOL 35329 UNITS CAP 06/18/2016 4:31: 30 PM Mirapex 1 mg tablet RxNorm: 381721 TAKE 1 TABLET BY MOUTH THREE TIMES DAILY 06/19/2016 07/16/2016 Inactive Generic For:MIRAPEX 1MG TAB BOE 06/18/2016 4:32: 01 PM N O T I C E Last quantity doesn't match original quantity Cozaar 50 mg tablet RxNorm: 294442 TAKE 1 TABLET BY MOUTH DAILY 06/19/2016 09/12/2016 Inactive Generic For:*COZAAR 50 MG TABLET N O T I C E Last quantity doesn't match original quantity carbidopa 25 mg-levodopa 100 mg tablet RxNorm: 038213 TAKE 2 TABLETS BY MOUTH FOUR TIMES DAILY 06/19/2016 07/16/2016 Inactive Generic For:SINEMET-25/100 TABLET N O T I C E Last quantity doesn't match original quantity Namenda 10 mg tablet RxNorm: 682519 TAKE 1 TABLET BY MOUTH TWICE DAILY 06/19/2016 09/12/2016 Inactive Generic For:NAMENDA 10MG TAB 06/18/2016 4:32:09 PM N O T I C E Last quantity doesn't match original quantity trazodone 50 mg tablet RxNorm: 566955 TAKE 1 TABLET BY MOUTH DAILY 06/19/2016 09/12/2016 Inactive Generic For:DESYREL 50 MG TABLET N O T I C E Last quantity doesn't match original quantity Duragesic 25 mcg/hr transdermal patch RxNorm: 671402 1 Patch TD q72 hours 06/12/2016 07/11/2016 Inactive Aleve 220 mg tablet RxNorm: 246357 Tablet(s) TAKE ONE TABLET BY MOUTH TWICE DAILY 05/27/2016 09/23/2016 Inactive 05/13/2016 8:39:57 AM Duragesic 12 mcg/hr transdermal patch RxNorm: 731636 1 TD q72 hours 05/27/2016 06/25/2016 Inactive gabapentin 300 mg capsule RxNorm: 839042 1 Capsule(s) PO BID 05/23/2016 Inactive Lantus 100 unit/mL subcutaneous solution RxNorm: 114379 30 Unit(s) SQ daily 05/24/2016 05/23/2016 Inactive gabapentin 300 mg capsule RxNorm: 981216 1 Capsule(s) PO BID 09/12/2016 Inactive Lantus 100 unit/mL subcutaneous solution RxNorm: 527165 30 Unit(s) SQ daily 05/24/2016 11/10/2016 Inactive carbidopa 25 mg-levodopa 100 mg tablet RxNorm: 509779 TAKE 2 TABLETS BY MOUTH FOUR TIMES DAILY 05/22/2016 06/18/2016 Inactive Generic For:SINEMET-25/100 TABLET 05/22/2016 9:39:54 AM Namenda 10 mg tablet RxNorm: 476741 TAKE 1 TABLET BY MOUTH TWICE DAILY 05/22/2016 06/18/2016 Inactive Generic For:NAMENDA 10MG TAB 05/22/2016 9:39:26 AM mecobalamin (vitamin B12) 5,000 mcg disintegrating tablet RxNorm: 6997593 1 Tablet (s) PO daily 05/22/2016 09/12/2016 Inactive Cozaar 50 mg tablet RxNorm: 153808 TAKE 1 TABLET BY MOUTH DAILY 05/22/2016 06/18/2016 Inactive Generic For:*COZAAR 50 MG TABLET 05/22/2016 9:39:36 AM Mirapex 1 mg tablet RxNorm: 956157 TAKE 1 TABLET BY MOUTH THREE TIMES DAILY 05/22/2016 06/18/2016 Inactive Generic For:MIRAPEX 1MG TAB [facility] 05/22/2016 9:39: 17 AM trazodone 50 mg tablet RxNorm: 478451 TAKE 1 TABLET BY MOUTH DAILY 05/22/2016 06/18/2016 Inactive Generic For:DESYREL 50 MG TABLET 05/22/2016 9:39:07 AM Ocuvite with Lutein 1,000 unit-200 mg-60 unit-2mg tablet RxNorm: 1 Tablet(s) PO daily 05/21/2016 05/20/2016 Inactive gabapentin 100 mg capsule RxNorm: 283693 TAKE 1 CAPSULE BY MOUTH DAILY 05/21/2016 08/14/2016 Inactive Generic For:NEURONTIN 100 MG CAPSULE 05/21/2016 2:57:16 PM Myrbetriq 50 mg tablet,extended release RxNorm: 5459997 TAKE 1 TABLET BY MOUTH DAILY 05/21/2016 08/15/2016 Inactive 05/21/2016 2:59:11 PM Ocuvite with Lutein 1,000 unit-200 mg-60 unit-2mg tablet RxNorm: 1 Tablet(s) PO daily 05/21/2016 11/07/2016 Inactive Aleve 220 mg tablet RxNorm: 602363 TAKE ONE TABLET BY MOUTH TWICE DAILY 05/14/2016 05/26/2016 Inactive 05/13/2016 8:39:57 AM Duragesic 25 mcg/hr transdermal patch RxNorm: 148917 1 Patch TD q72 hours 05/14/2016 06/11/2016 Inactive Duragesic 12 mcg/hr transdermal patch RxNorm: 212706 1 TD q72 hours 04/24/2016 05/23/2016 Inactive capsaicin 0.025 % topical cream RxNorm: 840220 1 Application TOP QID 04/16/2016 07/04/2016 Inactive Duragesic 12 mcg/hr transdermal patch RxNorm: 164331 1 TD q72 hours 04/10/2016 04/23/2016 Inactive Duragesic 25 mcg/hr transdermal patch RxNorm: 818919 1 TD q72 hours 04/10/2016 05/09/2016 Inactive Cipro 500 mg tablet RxNorm: 544363 1 Tablet(s) PO BID 201504/13/2016 Inactive hydrocodone 5 mg-acetaminophen 325 mg tablet RxNorm: 118318 1 Tablet(s) PO Q4H as needed 03/20/2016 04/18/2016 Inactive Duragesic 12 mcg/hr transdermal patch RxNorm: 512224 1 TD q72 hours 03/20/2016 04/09/2016 Inactive Duragesic 25 mcg/hr transdermal patch RxNorm: 665348 1 TD q72 hours 03/15/2016 04/09/2016 Inactive hydrocodone 5 mg-acetaminophen 325 mg tablet RxNorm: 240761 1 Tablet(s) PO Q4H as needed 03/08/2016 03/19/2016 Inactive Cipro 500 mg tablet RxNorm: 319416 1 Tablet(s) PO BID 201503/06/2016 Inactive Cipro 500 mg tablet RxNorm: 441988 1 Tablet(s) PO BID 201503/13/2016 Inactive Duragesic 12 mcg/hr transdermal patch RxNorm: 882250 1 TD q72 hours 02/27/2016 03/19/2016 Inactive Duragesic 12 mcg/hr transdermal patch RxNorm: 962876 1 TD q72 hours 01/29/2016 02/26/2016 Inactive [SAVINGS FOR NON-COVERED DRUGS -- BIN:[id number], PCN: ASPROD1, Group : XXXXX, ID# XXXXXXX, Questions: . THIS IS NOT INSURANCE.] Lasix 20 mg tablet RxNorm: 237201 2 Tablet(s) PO daily 201501/28/2016 Inactive potassium chloride ER 10 mEq tablet,extended release RxNorm: 197615 2 Tablet(s) PO daily to take while taking the lasix 01/24/2016 01/28/2016 Inactive Duragesic 25 mcg/hr transdermal patch RxNorm: 769027 1 TD q72 hours 01/16/2016 02/14/2016 Inactive Duragesic 25 mcg/hr transdermal patch RxNorm: 025133 1 TD q72 hours APPLY WITH DURAGESIC 12MCG 1 Q 72 01/03/20162015 Inactive [SAVINGS FOR NON-COVERED DRUGS -- BIN:171567, PCN: ASPROD1, Group: XXXXX, ID# XXXXXXX, Questions: [phone]. THIS IS NOT INSURANCE.] hydrocodone 5 mg-acetaminophen 325 mg tablet RxNorm: 067935 1 Tablet(s) PO Q4H as needed 01/02/2016 03/07/2016 Inactive [SAVINGS FOR NON-COVERED DRUGS -- BIN:458341 , PCN: ASPROD1, Group: XXXXX, ID# XXXXXXX, Questions: . THIS IS NOT INSURANCE.] Myrbetriq 50 mg tablet,extended release RxNorm: 5052959 1 Tablet(s) PO daily 12/28/2015 04/25/2016 Inactive PA approved Duragesic 25 mcg/hr transdermal patch RxNorm: 353816 1 TD q72 hours 12/18/2015 01/02/2016 Inactive [SAVINGS FOR NON-COVERED DRUGS -- BIN:594881, PCN: ASPROD1, Group : XXXXX, ID# XXXXXXX, Questions: . THIS IS NOT INSURANCE.] Duragesic 25 mcg/hr transdermal patch RxNorm: 992536 1 TD q72 hours 11/17/2015 12/17/2015 Inactive [SAVINGS FOR NON-COVERED DRUGS -- BIN:636405, PCN: ASPROD1, Group : XXXXX, ID# XXXXXXX, Questions: . THIS IS NOT INSURANCE.] Myrbetriq 50 mg tablet,extended release RxNorm: 9304674 1 Tablet(s) PO daily 10/31/2015 12/27/2015 Inactive increase dose Myrbetriq 25 mg tablet,extended release RxNorm: 4834682 1 Tablet(s) PO daily 10/24/2015 10/30/2015 Inactive send PA form if required Myrbetriq 25 mg tablet,extended release RxNorm: 9404266 1 Tablet(s) PO daily 10/24/2015 10/23/2015 Inactive send PA form if required Duragesic 25 mcg/hr transdermal patch RxNorm: 622864 1 TD q72 hours 10/18/2015 11/16/2015 Inactive [SAVINGS FOR NON-COVERED DRUGS -- BIN:013440, PCN: ASPROD1, Group : XXXXX, ID# XXXXXXX, Questions: . THIS IS NOT INSURANCE.] Namenda 10 mg tablet RxNorm: 744445 1 Tablet(s) PO BID 201505/21/2016 Inactive Lantus Solostar 100 unit/mL (3 mL) subcutaneous insulin pen RxNorm: 466733 30 Unit(s) SQ daily (may be adjusted for further glucose control) 10/12/2015 05/23/2016 Inactive [SAVINGS FOR UNINSURED PATIENTS -- BIN:771661, PCN: ASPROD1, Group: [id number], ID# [id number], Process claim through [employer], for questions: [phone]. THIS IS NOT INSURANCE.] Mirapex 1 mg tablet RxNorm: 123059 1 Tablet(s) PO TID 201505/21/2016 Inactive Duragesic 25 mcg/hr transdermal patch RxNorm: 860240 1 TD q72 hours 09/18/2015 10/17/2015 Inactive [SAVINGS FOR NON-COVERED DRUGS -- BIN:174306, PCN: ASPROD1, Group : XXXXX, ID# XXXXXXX, Questions: . THIS IS NOT INSURANCE.] Sinemet CR 50 mg-200 mg tablet,extended release RxNorm: 088191 2 Tablet(s) PO QID 08/21/2015 10/12/2015 Inactive Duragesic 25 mcg/hr transdermal patch RxNorm: 007570 1 TD q72 hours 08/21/2015 09/17/2015 Inactive [SAVINGS FOR NON-COVERED DRUGS -- BIN:865940, PCN: ASPROD1, Group : XXXXX, ID# XXXXXXX, Questions: . THIS IS NOT INSURANCE.] Namenda XR 7 mg-14 mg-21 mg-28 mg capsule,sprinkle,ER 24hr, dose pack RxNorm: 974822 Capsule(s) PO 08/21/2015 08/21/2015 Inactive gabapentin 100 mg capsule RxNorm: 540301 1 Capsule(s) PO once daily at noon and 300mg BID 08/21/2015 05/20/2016 Inactive [SAVINGS FOR NON-COVERED DRUGS -- BIN: 270424, PCN: ASPROD1, Group: XXXXX, ID# [email or web address], Questions: . THIS IS NOT INSURANCE.] Mirapex 1 mg tablet RxNorm: 246842 1 Tablet(s) PO QPM 201509/19/2015 Inactive Lantus Solostar 100 unit/mL (3 mL) subcutaneous insulin pen RxNorm: 217224 25 Unit(s) SQ daily (may be adjusted for further glucose control) 08/21/2015 10/11/2015 Inactive [SAVINGS FOR UNINSURED PATIENTS -- BIN:994906, PCN: ASPROD1, Group: AME08, ID# [id number], Process claim through [employer], for questions: [phone]. THIS IS NOT INSURANCE.] Duragesic 12 mcg/hr transdermal patch RxNorm: 395681 1 TD q72 hours 08/04/2015 08/20/2015 Inactive [SAVINGS FOR NON-COVERED DRUGS -- BIN:494118, PCN: ASPROD1, Group : XXXXX, ID# XXXXXXX, Questions: . THIS IS NOT INSURANCE.] Augmentin 500 mg-125 mg tablet RxNorm: 636834 1 Tablet(s) PO TID 07/27/2015 07/26/2015 Inactive Augmentin 500 mg-125 mg tablet RxNorm: 884744 1 Tablet(s) PO TID 07/27/2015 08/02/2015 Inactive Cipro 500 mg tablet RxNorm: 086479 1 Tablet(s) PO BID 201507/06/2015 Inactive Cipro 500 mg tablet RxNorm: 299758 1 Tablet(s) PO BID 201510/11/2015 Inactive Duragesic 12 mcg/hr transdermal patch RxNorm: 488430 1 TD q72 hours 07/04/2015 08/03/2015 Inactive [SAVINGS FOR NON-COVERED DRUGS -- BIN:310616, PCN: ASPROD1, Group : XXXXX, ID# XXXXXXX, Questions: . THIS IS NOT INSURANCE.] hydrocodone 5 mg-acetaminophen 325 mg tablet RxNorm: 512646 1 Tablet(s) PO Q4H as needed 07/03/2015 01/01/2016 Inactive [SAVINGS FOR NON-COVERED DRUGS -- BIN:928237 , PCN: ASPROD1, Group: XXXXX, ID# XXXXXXX, Questions: . THIS IS NOT INSURANCE.] Duragesic 12 mcg/hr transdermal patch RxNorm: 994735 1 TD q72 hours 06/05/2015 07/03/2015 Inactive [SAVINGS FOR NON-COVERED DRUGS -- BIN:631198, PCN: ASPROD1, Group : XXXXX, ID# XXXXXXX, Questions: . THIS IS NOT INSURANCE.] Duragesic 12 mcg/hr transdermal patch RxNorm: 818277 1 TD q72 hours 05/09/2015 06/04/2015 Inactive [SAVINGS FOR NON-COVERED DRUGS -- BIN:376525, PCN: ASPROD1, Group : XXXXX, ID# XXXXXXX, Questions: . THIS IS NOT INSURANCE.] hydrocodone 5 mg-acetaminophen 325 mg tablet RxNorm: 090433 1 Tablet(s) PO Q4H as needed 04/27/2015 07/02/2015 Inactive [SAVINGS FOR NON-COVERED DRUGS -- BIN:633454 , PCN: ASPROD1, Group: XXXXX, ID# XXXXXXX, Questions: . THIS IS NOT INSURANCE.] Duragesic 12 mcg/hr transdermal patch RxNorm: 813221 1 TD q72 hours 04/06/2015 05/08/2015 Inactive [SAVINGS FOR NON-COVERED DRUGS -- BIN:419687, PCN: ASPROD1, Group : XXXXX, ID# XXXXXXX, Questions: . THIS IS NOT INSURANCE.] Duragesic 12 mcg/hr transdermal patch RxNorm: 425424 1 TD q72 hours 03/07/2015 04/05/2015 Inactive [SAVINGS FOR NON-COVERED DRUGS -- BIN:254596, PCN: ASPROD1, Group : XXXXX, ID# XXXXXXX, Questions: . THIS IS NOT INSURANCE.] hydrocodone 5 mg-acetaminophen 325 mg tablet RxNorm: 676471 1 Tablet(s) PO Q4H as needed 02/16/2015 04/26/2015 Inactive [SAVINGS FOR NON-COVERED DRUGS -- BIN:505597 , PCN: ASPROD1, Group: XXXXX, ID# XXXXXXX, Questions: . THIS IS NOT INSURANCE.] Mirapex 0.25 mg tablet RxNorm: 212344 1 Tablet(s) PO QPM 201403/17/2015 Inactive Duragesic 12 mcg/hr transdermal patch RxNorm: 949232 1 TD q72 hours 01/31/2015 03/06/2015 Inactive [SAVINGS FOR NON-COVERED DRUGS -- BIN:048169, PCN: ASPROD1, Group : XXXXX, ID# XXXXXXX, Questions: . THIS IS NOT INSURANCE.] Duragesic 12 mcg/hr transdermal patch RxNorm: 814029 1 TD q72 hours 01/03/2015 01/30/2015 Inactive [SAVINGS FOR NON-COVERED DRUGS -- BIN:217385, PCN: ASPROD1, Group : XXXXX, ID# XXXXXXX, Questions: . THIS IS NOT INSURANCE.] hydrocodone 5 mg-acetaminophen 325 mg tablet RxNorm: 879853 1 Tablet(s) PO Q4H as needed 12/21/2014 02/15/2015 Inactive [SAVINGS FOR NON-COVERED DRUGS -- BIN:874329 , PCN: ASPROD1, Group: XXXXX, ID# XXXXXXX, Questions: . THIS IS NOT INSURANCE.] Duragesic 12 mcg/hr transdermal patch RxNorm: 007468 1 TD q72 hours 12/14/2014 01/02/2015 Inactive [SAVINGS FOR NON-COVERED DRUGS -- BIN:657645, PCN: ASPROD1, Group : XXXXX, ID# XXXXXXX, Questions: . THIS IS NOT INSURANCE.] Duragesic 12 mcg/hr transdermal patch RxNorm: 633263 1 TD q72 hours 11/07/2014 12/13/2014 Inactive [SAVINGS FOR NON-COVERED DRUGS -- BIN:065373, PCN: ASPROD1, Group : XXXXX, ID# XXXXXXX, Questions: . THIS IS NOT INSURANCE.] Vitamin D2 50,000 unit capsule RxNorm: 271936 TAKE 1 CAPSULE WEEKLY (AFTER FINISHED WITH VIT D 27978L FOR THE 12 WEEKS, START OTC VITAMIN D 2000 UNITS DAILY) 10/24/2014 06/20/2016 Inactive Duragesic 12 mcg/hr transdermal patch RxNorm: 301123 1 TD q72 hours 10/11/2014 11/06/2014 Inactive [SAVINGS FOR NON-COVERED DRUGS -- BIN:270198, PCN: ASPROD1, Group : XXXXX, ID# XXXXXXX, Questions: . THIS IS NOT INSURANCE.] Sinemet CR 50 mg-200 mg tablet,extended release RxNorm: 956875 1 Tablet(s) PO BID 10/05/2014 05/02/2015 Inactive Lantus Solostar 100 unit/mL (3 mL) subcutaneous insulin pen RxNorm: 873029 15 Unit(s) SQ daily (may be adjusted for further glucose control) 09/28/2014 08/20/2015 Inactive [SAVINGS FOR UNINSURED PATIENTS -- BIN:317431, PCN: ASPROD1, Group: AME08, ID# [id number], Process claim through [employer], for questions: [phone]. THIS IS NOT INSURANCE.] Duragesic 12 mcg/hr transdermal patch RxNorm: 128122 1 TD q72 hours 09/26/2014 10/10/2014 Inactive [SAVINGS FOR NON-COVERED DRUGS -- BIN:306144, PCN: ASPROD1, Group : XXXXX, ID# XXXXXXX, Questions: . THIS IS NOT INSURANCE.] hydrocodone 5 mg-acetaminophen 325 mg tablet RxNorm: 421375 1 Tablet(s) PO Q4H as needed 09/23/2014 12/20/2014 Inactive [SAVINGS FOR NON-COVERED DRUGS -- BIN:266915 , PCN: ASPROD1, Group: XXXXX, ID# XXXXXXX, Questions: . THIS IS NOT INSURANCE.] Duragesic 12 mcg/hr transdermal patch RxNorm: 291789 1 TD q72 hours 09/09/2014 09/25/2014 Inactive [SAVINGS FOR NON-COVERED DRUGS -- BIN:[id number], PCN: ASPROD1, Group : XXXXX, ID# [id number], Questions: . THIS IS NOT INSURANCE.] carbidopa 25 mg-levodopa 100 mg tablet RxNorm: 883037 2 in the am 1 at noon and 1 katie Tablet(s) PO BID 08/31/20142014 Inactive [SAVINGS FOR NON-COVERED DRUGS -- BIN:[id number], PCN: ASPROD1, Group: XXXXX, ID# [id number], Questions: [phone]. THIS IS NOT INSURANCE.] Vitamin D2 50,000 unit capsule RxNorm: 303765 1 CAPSULE(S) PO WEEKLY X 12 WEEKS 08/15/2014 10/23/2014 Inactive hydrocodone 5 mg-acetaminophen 325 mg tablet RxNorm: 608353 1 Tablet(s) PO Q4H as needed 08/12/2014 09/22/2014 Inactive [SAVINGS FOR NON-COVERED DRUGS -- BIN:[id number] , PCN: ASPROD1, Group: XXXXX, ID# [id number], Questions: . THIS IS NOT INSURANCE.] hydrocodone 10 mg-acetaminophen 325 mg tablet RxNorm: 696134 1/2 to 1 Tablet(s) PO q 4 hours prn for uncontrolled pain 07/14/2014 08/11/2014 Inactive [SAVINGS FOR NON-COVERED DRUGS -- BIN:[id number], PCN: [id number], Group: XXXXX, ID# [id number], Questions: . THIS IS NOT INSURANCE.] gabapentin 100 mg capsule RxNorm: 264072 1 Capsule(s) PO nightly x1week, then twice daily x 1 week, then tihree times daily thereafter 08/20/2015 Inactive [SAVINGS FOR NON-COVERED DRUGS -- BIN:422776, PCN: ASPROD1, Group: XXXXX, ID# [id number], Questions: . THIS IS NOT INSURANCE.] Bactrim DS 800 mg-160 mg tablet RxNorm: 408114 1 Tablet(s) PO BID 07/01/2014 07/07/2014 Inactive [SAVINGS FOR NON-COVERED DRUGS -- BIN:558033, PCN: ASPROD1, Group: XXXXX, ID# [id number], Questions: . THIS IS NOT INSURANCE.] Bactrim DS 800 mg-160 mg tablet RxNorm: 362465 1 Tablet(s) PO BID 07/01/2014 06/30/2014 Inactive Vitamin D2 50,000 unit capsule RxNorm: 476391 1 Capsule(s) PO weekly x 12 weeks 06/07/2014 08/14/2014 Inactive after patient is finished with vit D 91685t for the 12 weeks, she is to start on OTC vitamin D 2000 units daily Keflex 500 mg capsule RxNorm: 653619 1 Capsule(s) PO BID 201405/29/2014 Inactive carbidopa 25 mg-levodopa 100 mg tablet RxNorm: 944762 1 Tablet(s) PO BID 05/30/2014 08/30/2014 Inactive [SAVINGS FOR UNINSURED PATIENTS -- BIN:824751, PCN: ASPROD1 , Group: [id number], ID# [id number], Process claim through [employer], for questions: 1- [phone]. THIS IS NOT INSURANCE.] Keflex 500 mg capsule RxNorm: 231521 1 Capsule(s) PO BID 201406/05/2014 Inactive [SAVINGS FOR UNINSURED PATIENTS -- BIN:482157, PCN: ASPROD1, Group: AME08, ID # [id number], Process claim through [employer], for questions: . THIS IS NOT INSURANCE.] carbidopa 25 mg-levodopa 100 mg tablet RxNorm: 001592 1 Tablet(s) PO BID 05/23/2014 05/29/2014 Inactive [SAVINGS FOR UNINSURED PATIENTS -- BIN:293778, PCN: ASPROD1 , Group: [id number], ID# [id number], Process claim through [employer], for questions: 1- [phone]. THIS IS NOT INSURANCE.] carbidopa 25 mg-levodopa 100 mg tablet RxNorm: 749811 1/2 Tablet(s) PO BID 05/03/2014 05/22/2014 Inactive [SAVINGS FOR UNINSURED PATIENTS -- BIN:767554, PCN: ASPROD1, Group: [id number], ID# [id number], Process claim through [employer], for questions: . THIS IS NOT INSURANCE.] pen needle, diabetic, remover & disposal unit 31 x 5/16" RxNorm: 1 use Miscellaneous 03/31/2014 09/21/2015 Inactive [SAVINGS FOR UNINSURED PATIENTS -- BIN :345233, PCN: ASPROD1, Group: [id number], ID# [id number], Process claim through [employer], for questions: . THIS IS NOT INSURANCE.] Lantus Solostar 100 unit/mL (3 mL) subcutaneous insulin pen RxNorm: 412536 10 Unit(s) SQ daily (may be adjusted for further glucose control) 03/31/2014 09/27/2014 Inactive [SAVINGS FOR UNINSURED PATIENTS -- BIN:199282, PCN: ASPROD1, Group: AME08, ID# [id number], Process claim through [employer], for questions: [phone]. THIS IS NOT INSURANCE.] Vitamin D2 50,000 unit capsule RxNorm: 833152 1 Capsule(s) PO weekly x 12 weeks 03/22/2014 06/06/2014 Inactive after patient is finished with vit D 89424l for the 12 weeks, she is to start on OTC vitamin D 2000 units daily Vitamin D2 50,000 unit capsule RxNorm: 218434 1 Capsule(s) PO weekly x 12 weeks 03/22/2014 03/21/2014 Inactive after patient is finished with vit D 61363f for the 12 weeks, she is to start on OTC vitamin D 2000 units daily metformin 500 mg tablet RxNorm: 120487 1 Tablet(s) PO BID 03/1803/30/2014 Inactive [SAVINGS FOR UNINSURED PATIENTS -- BIN:250563, PCN: ASPROD1, Group: AME08, ID# [id number], Process claim through [employer], for questions: . THIS IS NOT INSURANCE.] Lidoderm 5 % (700 mg/patch) adhesive patch RxNorm: 3765065 1 TOP PRN for back pain. NEEDS PA IF ORDERED AGAIN No Start Date Active diclofenac sodium topical RxNorm: 3355 topical No Start Date Active Lasix 20 mg tablet RxNorm: 277466 Tablet(s) daily x 5 with k 10 daily x 5 PO No Start Date Active multivitamin tablet RxNorm: 1 Tablet(s) PO daily No Start Date Active oxybutynin chloride 5 mg tablet RxNorm: 609880 1 Tablet(s) PO daily No Start Date 03/30/2014 Inactive Sinemet CR 25 mg-100 mg tablet,extended release RxNorm: 199611 2 Tablet(s) PO QID No Start Date 06/19/2016 Inactive Namenda 5 mg tablet RxNorm: 930067 Tablet(s) PO No Start Date 10/11/2015 Inactive amlodipine 2.5 mg tablet RxNorm: 828801 1 Tablet(s) PO daily No Start Date 03/30/2014 Inactive Cozaar 50 mg tablet RxNorm: 064625 1 Tablet(s) PO daily No Start Date 05/21/2016 Inactive Voltaren 1 % topical gel RxNorm: 333271 4 Gram(s) TOP to lower back/hips QID No Start Date 07/10/2016 Inactive hydrochlorothiazide 25 mg tablet RxNorm: 716916 1 Tablet(s) PO daily No Start Date 03/30/2014 Inactive pramipexole 0.25 mg tablet RxNorm: 516774 1 Tablet(s) PO daily No Start Date 05/02/2014 Inactive simvastatin 40 mg tablet RxNorm: 287215 oral No Start Date 05/02/2014 Inactive vitamin L24-zuppazg B1 oral liquid RxNorm: PO No Start Date 10/12/2015 Inactive 2000u daily Fosamax Plus D oral RxNorm: 960961 oral No Start Date 05/02/2014 Inactive Actos 45 mg tablet RxNorm: 476855 1 Tablet(s) PO daily No Start Date 03/30/2014 Inactive Duragesic 12 mcg/hr transdermal patch RxNorm: 433457 1 TD q72 hours No Start Date 09/08/2014 Inactive Vitamin D3 2,000 unit capsule RxNorm: 535422 1 Capsule(s) PO daily No Start Date 11/07/2015 Inactive mecobalamin 5,000 mcg disintegrating tablet RxNorm: 0353016 1 Tablet(s) PO daily No Start Date 05/21/2016 Inactive magnesium 250 mg tablet RxNorm: 1 Tablet(s) PO daily No Start Date 05/02/2014 Inactive Refresh Tears 0.5 % eye drops RxNorm: 6042610 1 Drop(s) OPH daily as needed for dry eyes No Start Date 06/27/2016 Inactive furosemide 40 mg tablet RxNorm: 716717 1 Tablet(s) PO daily No Start Date 05/02/2014 Inactive trazodone 50 mg tablet RxNorm: 540807 1 Tablet(s) PO QHS No Start Date 05/21/2016 Inactive glipizide 10 mg tablet RxNorm: 479376 1 Tablet(s) PO daily No Start Date 05/02/2014 Inactive hydrocodone 10 mg-acetaminophen 325 mg tablet RxNorm: 727543 oral No Start Date 07/13/2014 Inactive Refresh ophthalmic RxNorm: 930332 ophthalmic No Start Date 06/28/2016 Inactive capsaicin 0.025 % topical cream RxNorm: 317631 1 Application TOP QID No Start Date 04/15/2016 Inactive Aleve 220 mg tablet RxNorm: 005531 1 Tablet(s) PO daily as needed No Start Date 05/13/2016 Inactive senna 8.6 mg tablet RxNorm: 920511 1 Tablet(s) PO daily as needed No Start Date 10/02/2016 Inactive biotin 1000 mcg RxNorm : 1 Tablet(s) PO daily No Start Date 05/02/2014 Inactive ranitidine 150 mg capsule RxNorm: 322099 2 Capsule(s) PO daily No Start Date 05/02/2014 Inactive hydrocodone 5 mg-acetaminophen 325 mg tablet RxNorm: 530790 1 Tablet(s) PO Q4H as needed No Start Date 08/11/2014 Inactive Calcitrate-Vitamin D oral RxNorm: 1895 oral No Start Date 11/07/2015 Inactive potassium chloride RxNorm: 89983 miscellaneous No Start Date 05/02/2014 Inactive metformin 500 mg tablet RxNorm: 995056 2 Tablet(s) PO daily No Start Date 03/17/2014 Inactive aspirin 81 mg tablet RxNorm: 386442 1 Tablet(s) PO daily No Start Date [...] Item Item Code Result Date Culture Urine [id number] URINE CULTURE SEE NOTES 05/02/2017 Culture Urine [id number] Continued Results 05/02/2017 Urine Culture Ucult Complete [...] U-Com Culture to follow 04/29/2017 Culture Urine [id number] URINE CULTURE SEE NOTES 04/07/2017 Culture Urine [id number] Continued Results 04/07/2017 Urine Culture Ucult Complete [...] U-Com Culture to follow 04/04/2017 Culture Urine [id number] URINE CULTURE SEE NOTES 01/13/2017 Culture Urine [id number] Continued Results 01/13/2017 Urine Culture Ucult Complete [...] Uric A 4.5 mg/dL 07/29/2016 Comp Metabolic Vkp545 NA 134 mEq/L 06/26/2016 Comp Metabolic Niz712 K 4.8 mEq/L 06/26/2016 Comp Metabolic Mnu555 CL 98 mEq/L 06/26/2016 Comp Metabolic Kcr842 CO2 28.0 mEq/L 06/26/2016 Comp Metabolic Btv879 ANION GAP 13 06/26/2016 Comp Metabolic Mut681 GLUCOSE 270 mg/dL 06/26/2016 Comp Metabolic Eyw175 Creat 0.9 mg/dL 06/26/2016 Comp Metabolic Lbo882 eGFR 68 ml/min/1.73m2 06/26/2016 Comp Metabolic Zjj388 BUN 22 mg/dL 06/26/2016 Comp Metabolic Mir603 B/C Ratio 25.9 Ratio 06/26/2016 Comp Metabolic Aqy094 CALCIUM 9.0 mg/dL 06/26/2016 Comp Metabolic Wtv272 ALK PHOS 119 U/L 06/26/2016 Comp Metabolic Ibe989 AST(SGOT) 34 U/L 06/26/2016 Comp Metabolic Bmo370 ALT(SGPT) 18 U/L 06/26/2016 Comp Metabolic Tdm736 BILI T 0.5 mg/dL 06/26/2016 Comp Metabolic Jfx934 ALBUMIN 4.1 g/dL 06/26/2016 Comp Metabolic Usl133 TPRO 6.8 g/dL 06/26/2016 Comp Metabolic Dey955 GLOB 2.7 g/dL 06/26/2016 Comp Metabolic Ooc275 A/G Ratio 1.5 Ratio 06/26/2016 Comp Metabolic Ifc258 Osmo 281 mOsmo 06/26/2016 Tsh Ord6 hTSH II 1.57 uIU/mL 06/26/2016 %Hba1C Drc386 % HbA1c 21060-2 7.6 % 06/26/2016 %Hba1C Wir883 Gluc Ave 171 mg/dL 06/26/2016 Lipid Ord30 CHOL 225 mg/dL 06/26/2016 Lipid Ord30 HDL 49.0 mg/dl 06/26/2016 Lipid Ord30 TRIG 208 mg/dL 06/26/2016 Lipid Ord30 LDL 134 mg/dL 06/26/2016 Lipid Ord30 C/HDL 4.6 Ratio 06/26/2016 Vitamin D 25 Oh Pok4677 VITAMIN D, 25 HYDROXY 65.10 ng/mL Culture Urine [id number] URINE CULTURE SEE NOTES 03/11/2016 Culture Urine [id number] Continued Results 03/11/2016 Urine Culture Ucult Complete [...] Ord15 CALCIUM 9.5 mg/dL 01/24/2016 Culture Urine [id number] URINE CULTURE SEE NOTES 12/29/2015 Culture Urine [id number] Continued Results 12/29/2015 Urine Culture Ucult Complete >100,000 col/ml aerobic growth sent to ref lab 12/27/2015 %Hba1C Gkj300 % HbA1c 90929-7 8.3 % 12/26/2015 %Hba1C Jab377 Gluc Ave 192 mg/dL 12/26/2015 Culture Urine [id number] URINE CULTURE SEE NOTES 10/09/2015 Culture Urine [id number] Continued Results 10/09/2015 Urine Culture Ucult Complete [...] hTSH II 1.24 uIU/mL 09/13/2015 Comp Metabolic Sro487 NA 137 mEq/L 09/13/2015 Comp Metabolic Jua524 K 4.5 mEq/L 09/13/2015 Comp Metabolic Mpq343 CL 100 mEq/L 09/13/2015 Comp Metabolic Bru124 CO2 28.0 mEq/L 09/13/2015 Comp Metabolic Xuo405 ANION GAP 14 09/13/2015 Comp Metabolic Tjg245 GLUCOSE 124 mg/dL 09/13/2015 Comp Metabolic Sps497 Creat 0.9 mg/dL 09/13/2015 Comp Metabolic Rjf163 eGFR 65 ml/min/1.73m2 09/13/2015 Comp Metabolic Mji703 BUN 20 mg/dL 09/13/2015 Comp Metabolic Akh254 B/C Ratio 22.7 Ratio 09/13/2015 Comp Metabolic Zbb345 CALCIUM 8.8 mg/dL 09/13/2015 Comp Metabolic Wez745 ALK PHOS 64 U/L 09/13/2015 Comp Metabolic Xbj280 AST(SGOT) 16 U/L 09/13/2015 Comp Metabolic Byv727 ALT(SGPT) 13 U/L 09/13/2015 Comp Metabolic Trm964 BILI T 0.7 mg/dL 09/13/2015 Comp Metabolic Cgu733 ALBUMIN 3.9 g/dL 09/13/2015 Comp Metabolic Kyp001 TPRO 6.7 g/dL 09/13/2015 Comp Metabolic Eiz295 GLOB 2.8 g/dL 09/13/2015 Comp Metabolic Xuz293 A/G Ratio 1.4 Ratio 09/13/2015 Comp Metabolic Nye922 Osmo 278 mOsmo 09/13/2015 Cbc With Differential Ord2 WBC 6.56 K/ul 09/13/2015 Cbc With Differential Ord2 RBC 4.38 M/ul 09/13/2015 Cbc With Differential Ord2 HGB 13.2 g/dl 09/13/2015 Cbc With Differential Ord2 HCT 40.8 % 09/13/2015 Cbc With Differential Ord2 Neut% 66.4 % 09/13/2015 Cbc With Differential Ord2 MCV 93.2 fl 09/13/2015 Cbc With Differential Ord2 Lymph% 25.3 % 09/13/2015 Cbc With Differential Ord2 MCH 30.1 pg 09/13/2015 Cbc With Differential Ord2 Hand% 6.6 % 09/13/2015 Cbc With Differential Ord2 [...] 1.66 K/ul 09/13/2015 Cbc With Differential Ord2 Hand ABS# 0.4 K/ul 09/13/2015 Cbc With Differential Ord2 Eos ABS# 0.1 K/ul 09/13/2015 Cbc With Differential Ord2 Baso ABS# 0.0 K/ul 09/13/2015 Cbc With Differential Ord2 New Analyzer Notice Please note new ref ranges starting 05-10-2015 due to implemntation of new five part differential hematolgy analyzer. 09/13/2015 %Hba1C Ppa883 % HbA1c 01363-5 9.1 % 09/13/2015 %Hba1C Xyl484 Gluc Ave 214 mg/dL 09/13/2015 Urine Culture [...] U-Com Culture to follow 09/08/2015 Culture Urine [id number] URINE CULTURE SEE NOTES 03/03/2015 Culture Urine [id number] Continued Results 03/03/2015 Urine Culture Ucult Complete [...] U-Yeast NEGATIVE 01/17/2015 Vitamin D 25 Oh Nsj7471 VITAMIN D, 25 HYDROXY 48.78 ng/mL Comp Metabolic Bhj446 NA 135 mEq/L 12/13/2014 Comp Metabolic Jzy308 K 4.5 mEq/L 12/13/2014 Comp Metabolic Esi581 CL 101 mEq/L 12/13/2014 Comp Metabolic Kmm908 CO2 28.0 mEq/L 12/13/2014 Comp Metabolic Ueq275 ANION GAP 11 12/13/2014 Comp Metabolic Uoo102 GLUCOSE 90 mg/dL 12/13/2014 Comp Metabolic Ovg443 Creat 1.1 mg/dL 12/13/2014 Comp Metabolic Gzv067 eGFR 50 ml/min/1.73m2 12/13/2014 Comp Metabolic Pan265 BUN 19 mg/dL 12/13/2014 Comp Metabolic Sus586 B/C Ratio 17.1 Ratio 12/13/2014 Comp Metabolic Jkp509 CALCIUM 9.3 mg/dL 12/13/2014 Comp Metabolic Crs837 ALK PHOS 74 U/L 12/13/2014 Comp Metabolic Xxl023 AST(SGOT) 16 U/L 12/13/2014 Comp Metabolic Oyj886 ALT(SGPT) 3 U/L 12/13/2014 Comp Metabolic Ptg281 BILI T 0.4 mg/dL 12/13/2014 Comp Metabolic Uov413 ALBUMIN 3.7 g/dL 12/13/2014 Comp Metabolic Pdv161 TPRO 6.4 g/dL 12/13/2014 Comp Metabolic Ska745 GLOB 2.7 g/dL 12/13/2014 Comp Metabolic Zuk394 A/G Ratio 1.4 Ratio 12/13/2014 Comp Metabolic Kow022 Osmo 272 mOsmo 12/13/2014 Tsh Ord6 hTSH [...] Differential Ord2 RDW 15.1 % 12/13/2014 %Hba1C Uzh591 % HbA1c 89416-9 7.2 % 12/13/2014 %Hba1C Hih910 Gluc Ave 160 mg/dL 12/13/2014 Review of [...] lips 12/09/2014 None Full Exam - General 1995 Ears/Nose/Throat lips/teeth/gingiva Overall: normal dentition 12/09/2014 None [...] rate 03/31/2014 None Full Exam - General 1995 Cardiovascular extremities Overall: no clubbing 03/31/2014 None [...] Codes Date URINALYSIS NONAUTO W/O SCOPE CPT-4: 31597 12/26/2015 URINALYSIS NONAUTO W/O SCOPE CPT-4: 47709 12/09/2014 URINALYSIS NONAUTO W/O SCOPE CPT-4: 22963 07/12/2014 Vital Signs Date Vital 01/09/2017 Blood Pressure 1: 144/82 Code : 8480-6 BMI: 36.8 Code : 66805-6 Heart Rate 1 : 84 bpm Height: 4'11" SpO2: 95% Weight: 182 lbs 09/27/2016 Blood Pressure 1: 152/74 Code : 8480-6 BMI: 38.1 Code : 48276-2 Heart Rate 1 : 80 bpm Height: 4'11" SpO2: 95% Weight: 188 lbs 8 oz 07/29/2016 Blood Pressure 1: 152/76 Code : 8480-6 BMI: 39.0 Code : 86252-2 Heart Rate 1 : 90 bpm Height: 4'11" SpO2: 97% Weight: 193 lbs 06/28/2016 Blood Pressure 1: 130/74 Code : 8480-6 BMI: 40.6 Code : 37184-2 Heart Rate 1 : 85 bpm Height: 4'11" SpO2: 97% Weight: 201 lbs 03/26/2016 Blood Pressure 1: 130/62 Code : 8480-6 Heart Rate 1: 76 bpm Height: SpO2: 93% Weight: 03/07/2016 Blood Pressure 1: 144/60 Code : 8480-6 BMI: 40.4 Code : 84736-0 Heart Rate 1 : 85 bpm Height: 4'11" SpO2: 95% Weight: 200 lbs 01/24/2016 Blood Pressure 1: 134/50 Code : 8480-6 BMI: 40.4 Code : 29140-9 Heart Rate 1 : 91 bpm Height: 4'11" SpO2: 96% Weight: 200 lbs 01/19/2016 Blood Pressure 1: 158/72 Code : 8480-6 BMI: 40.8 Code : 39456-6 Heart Rate 1 : 82 bpm Height: 4'11" SpO2: 96% Weight: 202 lbs 01/16/2016 Blood Pressure 1: 164/70 Code : 8480-6 BMI: 41.2 Code : 46370-5 Heart Rate 1 : 87 bpm Height: 4'11" SpO2: 94% Weight: 204 lbs 12/26/2015 Blood Pressure 1: 142/70 Code : 8480-6 BMI: 40.4 Code : 24085-7 Heart Rate 1 : 89 bpm Height: 4'11" SpO2: 98% Weight: 200 lbs 10/12/2015 Blood Pressure 1: 140/68 Code : 8480-6 BMI: 39.6 Code : 79844-0 Heart Rate 1 : 81 bpm Height: 4'11" SpO2: 96% Weight: 196 lbs 09/08/2015 Blood Pressure 1: 130/80 Code : 8480-6 BMI: 38.8 Code : 86805-1 Heart Rate 1 : 94 bpm Height: 4'11" SpO2: 95% Weight: 192 lbs 08/21/2015 Blood Pressure 1: 128/82 Code : 8480-6 BMI: 38.4 Code : 96354-5 Heart Rate 1 : 84 bpm Height: 4'11" SpO2: 96% Weight: 190 lbs 02/16/2015 Blood Pressure 1: 138/68 Code : 8480-6 BMI: 37.2 Code : 91335-6 Heart Rate 1 : 81 bpm Height: 4'11" SpO2: 95% Weight: 184 lbs 01/16/2015 Blood Pressure 1: 134/64 Code : 8480-6 BMI: 36.8 Code : 87364-0 Heart Rate 1 : 76 bpm Height: [...] Weight: 172 lbs 05/03/2014 BMI: 36.2 Code: 42176-4 Height: 4'11" Weight: 179 lbs 03/31/2014 Blood Pressure 1: 112/68 Code : 8480-6 BMI: 35.1 Code : 03038-4 Heart Rate 1 : 74 bpm Height: 4'11" Weight: 174 lbs 03/18/2014 Blood Pressure 1: 138/70 Code : 8480-6 BMI: 37.0 Code : 54682-5 Heart Rate 1 : 78 bpm Height: [...] Urgency of urination[ICD10: R39.15] Tanvi Islas MD, [facility] CPT-4: 33361 01/09/2017 ([id number]) 39420 EST. PATIENT, LEVEL IV Diagnosis: Essential (primary) hypertension[ICD10: I10] Diagnosis: Type 2 diabetes mellitus with hyperglycemia[ICD10: E11.65] Diagnosis: Parkinson's disease[ICD10: G20] Diagnosis: Bilateral primary osteoarthritis of hip[ICD10: M16.0] Amee Islas MD, [facility] CPT-4: 66489 09/27/2016 77360 EST. PATIENT, LEVEL IV Diagnosis: Pain in right toe(s)[ICD10: M79.674] Diagnosis: Localized edema[ICD10: R60.0] Diagnosis: Low back pain[ICD10: M54.5] Tanvi Islas MD, [facility] CPT-4 : 42077 07/29/2016 ([id number]) 39644 EST. PATIENT, LEVEL III Diagnosis: Pain in left hip[ICD10: M25.552] Amee Islas MD, [facility] CPT-4: 63252 06/28/2016 ([id number]) 98695 EST. PATIENT, LEVEL IV Diagnosis: Type 2 diabetes mellitus with hyperglycemia[ICD10: E11.65] Diagnosis: Parkinson's disease[ICD10: G20] Diagnosis: Essential (primary) hypertension[ICD10: I10] Diagnosis: Muscle weakness (generalized)[ICD10: M62.81] Diagnosis: Localized edema[ICD10: R60.0] Celestina Islas MD, [facility] CPT- 4: 41801 03/26/2016 09422 EST. PATIENT, LEVEL III Diagnosis: Dysuria[ICD10: R30.0] Diagnosis: Left upper quadrant pain[ICD10: R10.12] Tanvi Islas MD, [facility] CPT-4: 30324 03/07/2016 11828 EST. PATIENT, LEVEL IV Diagnosis: Encounter for follow-up examination after completed treatment for conditions other than malignant neoplasm[ICD10: Z09] Tanvi Islas MD, [facility] CPT-4: 92575 01/24/2016 ([id number]) Miscellaneous no charge Diagnosis: Localized edema[ICD10: R60.0] Tanvi Islas MD, [facility] CPT-4 : 17553 01/19/2016 45821 EST. PATIENT, LEVEL IV Diagnosis: Localized edema[ICD10: R60.0] Diagnosis: Other skin changes[ICD10: R23.8] Diagnosis: Low back pain[ICD10: M54.5] Tanvi Islas MD, [facility] CPT-4 : 65837 01/16/2016 ([id number]) 17704 EST. PATIENT, LEVEL IV Diagnosis: Type 2 diabetes mellitus with hyperglycemia[ICD10: E11.65] Diagnosis: Parkinson's disease[ICD10: G20] Diagnosis: Essential (primary) hypertension[ICD10: I10] Diagnosis: Dysuria[ICD10: R30.0] Diagnosis: Low back pain[ICD10: M54.5] Celestina Islas MD, [facility] CPT- 4: 35418 12/26/2015 ([id number]) 48298 EST. PATIENT, LEVEL IV Diagnosis: Type 2 diabetes mellitus with hyperglycemia[ICD10: E11.65] Diagnosis: Parkinson's disease[ICD10: G20] Diagnosis: Essential (primary) hypertension[ICD10: I10] Diagnosis: Bilateral primary osteoarthritis of hip[ICD10: M16.0] Celestina Islas MD, [facility] CPT-4: 81128 10/12/2015 01907 12037 EST. PATIENT, LEVEL III Diagnosis: Essential (primary) hypertension[ICD10: I10] Diagnosis: Localized edema[ICD10: R60.0] Diagnosis: Unsteadiness on feet[ICD10: R26.81] Diagnosis: Muscle weakness (generalized)[ICD10: M62.81] Diagnosis: Bilateral primary osteoarthritis of hip[ICD10: M16.0] Amee Islas MD, [facility] CPT-4: 72845 09/08/2015 [id number]) 59833 EST. PATIENT, LEVEL IV Diagnosis: Type 2 diabetes mellitus with hyperglycemia[ICD10: E11.65] Diagnosis: Essential (primary) hypertension[ICD10: I10] Diagnosis: Muscle weakness (generalized)[ICD10: M62.81] Diagnosis: Parkinson's disease[ICD10: G20] Diagnosis: Low back pain[ICD10: M54.5] Amee Islas MD, [facility] CPT-4: 99195 08/21/2015 ([id number]) 75963 EST. PATIENT, LEVEL IV Diagnosis: Parkinson's disease[ICD10: G20] Diagnosis: Essential (primary) hypertension[ICD10: I10] Diagnosis: Type 2 diabetes mellitus with hyperglycemia[ICD10: E11.65] Diagnosis: Pain in unspecified hip[ICD10: M25.559] Celestina Islas MD, [facility] CPT-4: 94156 02/16/2015 [id number]) 73519 EST. PATIENT, LEVEL IV Diagnosis: Dysuria[ICD9: 788.1] Diagnosis: Parkinson's disease[ICD9: 332.0] Diagnosis: ESSENTIAL HYPERTENSION[ICD9: 401.9] Amee Islas MD, [facility] CPT-4: 05632 01/16/2015 ([id number]) 14906 EST. PATIENT, LEVEL IV Diagnosis: UTI (urinary tract infection)[ICD9: 599.0] Diagnosis: DM W/O COMPLICATION TYPE II, UNCONTROLLED[ICD9: 250.02] Diagnosis: ESSENTIAL HYPERTENSION[ICD9: 401.9] Diagnosis: EDEMA[ICD9: 782.3] Celestina Islas MD, [facility] CPT-4: 05233 12/09/2014 ([id number]) 24466 EST. PATIENT, LEVEL IV Diagnosis: ESSENTIAL HYPERTENSION[ICD9: 401.9] Diagnosis: DIABETES TYPE II[ICD9: 250.00] Diagnosis: Parkinson's disease[ICD9: 332.0] Celestina Islas MD, [facility] CPT-4: 39856 09/28/2014 ([id number]) Patient admitted to the hospital from clinic (NO CHARGE) Diagnosis: Back pain[ICD9: 724.5] Diagnosis: EDEMA[ICD9: 782.3] Diagnosis: MALAISE AND FATIGUE[ICD9: 780.79] Diagnosis: Parkinson's disease[ICD9: 332.0] Diagnosis: ESSENTIAL HYPERTENSION[ICD9: 401.9] Diagnosis: Cellulitis[ICD9: 682.9] Diagnosis: Hip pain[ICD9: 719.45] Celestina Islas MD, [facility] CPT-4: 32337G 07/19/2014 ([id number]) 68085 EST. PATIENT, LEVEL IV Diagnosis: DM W/O COMPLICATION TYPE II, UNCONTROLLED[ICD9: 250.02] Diagnosis: Back pain[ICD9: 724.5] Diagnosis: EDEMA[ICD9: 782.3] Diagnosis: Parkinson's disease[ICD9: 332.0] Celestina Islas MD, [facility] CPT-4: 16177 07/12/2014 ([id number]) 39466 EST. PATIENT, LEVEL IV Diagnosis: EDEMA[ICD9: 782.3] Diagnosis: Chronic osteoarthritis[ICD9: 715.90] Diagnosis: Bilateral arm weakness[ICD9: 729.89] Diagnosis: Parkinson's disease[ICD9: 332.0] Diagnosis: Back pain[ICD9: 724.5] Celestina Islas MD, [facility] CPT-4: 08463 05/03/2014 [id number]) 33539 EST. PATIENT, LEVEL IV Diagnosis: DM W/O COMPLICATION TYPE II, UNCONTROLLED[ICD9: 250.02] Diagnosis: ESSENTIAL HYPERTENSION[ICD9: 401.9] Diagnosis: EDEMA[ICD9: 782.3] Diagnosis: MALAISE AND FATIGUE[ICD9: 780.79] [facility] CPT-4: 34693 03/31/2014 ([id number]) OFFICE/OUTPATIENT VISIT NEW Diagnosis: ESSENTIAL HYPERTENSION[ICD9: 401.9] Diagnosis: DM W/O COMPLICATION TYPE II, UNCONTROLLED[ICD9: 250.02] Diagnosis: OBESITY[ICD9: 278.00] Diagnosis: EDEMA[ICD9: 782.3] Diagnosis: MALAISE AND FATIGUE[ICD9: 780.79] Diagnosis: Restless leg[ICD9: 333.94] [facility] CPT- 4: 50606 03/18/2014 Plan of Care Planned Activity Notes [...] or concerns. 01/09/2017 Appointment: Tanvi Wiggins WPtel: [address] [place], [place] [phone] (30 min) [facility] 01/09/2017 Patient Education: Patient Medication Summary [...] of over-medication. 09/27/2016 Appointment: Amee Esteves WPtel: [phone] [phone] (30 min) Complex 09/27/2016 Patient Education: Patient [...] peripheral edema. 07/29/2016 [phone] [phone] [facility] 07/29/2016 Patient Education: Patient Medication Summary Completed 07/29/2016 Patient Education: Obesity Completed 07/29/2016 Visit Plan: Left hip pain-recent fall-ER f/u-pain improving -no changes in treatment at this time. 06/28/2016 Appointment: Amee Esteves WPtel: [phone] [phone] (30 min) Complex 06/28/2016 Patient Education: Patient [...] with lasix. 03/26/2016 Appointment: Celestina Islas WPtel: [phone] [phone] (15 min) Moderate 03/26/2016 Patient Education: Patient Medication Summary Completed 03/26/2016 Care Plan: COMPLETE CBC AUTOMATED LOINC : 22540-4 Pending 03/26/2016 Care Plan: MICROALBUMIN QUANTITATIVE LOINC : 45609-3 Pending 03/26/2016 Visit Plan: Left flank pain/UTI - pt with positive urinalysis - culture sent if appropriate. Antibiotic electronically prescribed to pt's pharmacy of choice. Pt to call if symptoms do not improve. 03/07/2016 Appointment: Tanvi Wiggins WPtel: [phone] [facility] (30 min) Complex 03/07/2016 Patient Education: Patient [...] peripheral edema. 01/24/2016 Appointment: Amee Esteves WPtel: [phone] [phone] [place] (30 min) Complex 01/24/2016 Patient Education: [...] concerns. 01/16/2016 Appointment: Amee Esteves WPtel: [phone] [phone] (30 min) Complex 01/16/2016 Patient Education: Patient [...] in treatment. 12/26/2015 App[facility]ment[phone] (15 min) Moderate 12/26/2015 Patient Education: [...] - continue with prn hydrocodone 10/12/2015 Appointment: Jan[facility]Naeemy [facility]el[phone] (15 min) Moderate 10/12/2015 Patient Education: Patient [...] kcl 10meq daily x 5 days Gait bezeipiwqdq-otvbrjyr-RQ of hips-chronic back pain-RX for wheelchair 09/08/2015 [...] 5 days 09/08/2015 App[facility]ment: [phone] (30 min) Complex 09/08/2015 Patient Education: Patient [...] 08/21/2015 Care Plan: Referral Order SNOMED-CT : [id number] Ordered 02/19/2015 Visit Plan: Parkinson's Disease - [...] - monitor symptoms. Will refer pt to [facility]. Hypertension - well controlled - continue [...] less controlled. 02/16/2015 Appointment: Celestina Islas WPtel: [address] [place], [place] [id number] (15 min) Moderate 02/16/2015 Patient Education: Patient [...] Care Plan: COMPLETE CBC AUTOMATED LOINC : 87188-9 Ordered 12/09/2014 Visit Plan: Hypertension - well [...] control. 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 dm - resume home medications htn - resume home medications. 07/19/2014 Appointment: [facility] [phone] [id number] [facility] 07/19/2014 Patient Education: Patient Medication Summary [...] report. 07/12/2014 Appointment[facility] [phone] [id number] Follow [facility] 07/12/2014 Patient Education: Patient [...] chair. 05/03/2014 Appointment: [facility] [phone] [id number] [place] Follow up 05/03/2014 Patient Education: Patient Medication [...] edema. 03/31/2014 App[facility]ment: [facility] [phone] [id number] Follow up 03/31/2014 Patient Education: Patient [...] friday and friday03/18/2014 Appointment: Celestina Islas WPtel: [address] [place], [place] [id number] New Patient 03/18/2014 Patient Education: Patient Medication [...] - we can increase to bid on Malcolm and then keep on bid treatment x [...] kcl 10meq daily x 5 days Gait xnsgrxzlueo-[id number]-JS of hips-chronic back pain-RX for wheelchair . 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 dm - resume home medications htn - [...] - monitor symptoms. Will refer pt to [facility]. Hypertension - well controlled - continue [...]
--- OUTSIDE RECORDS SUMMARY | 2017-07-29 19:48 | XMS REPORT | CCD ---
Author Celestina Juares Organization [facility] Address [facility] [place] [address] Phone Care Team Providers Care Business Travel Consultant Name Role Phone PP Unavailable CCM Unavailable Summary Purpose Interface Exchange Insurance Providers Payer name Policy type / Coverage type Covered democrat ID Effective Begin Date Effective End Date WPS Medicare Part B Medicare Part B [id number] Unknown Unknown FOR LIFE WPS Medicare Part B [id number] Unknown Unknown Family history Mother Diagnosis Age At Onset No Family Disease Entered N/A Social History Social History Element Codes Description Effective Dates Living arrangements Unknown Assisted Living [facility] 11/08/2015 Education level Unknown College Graduate 10/12/2015 Marital status Unknown 03/18/2014 Number of children Unknown 5 03/18/[address]: 965163355 Never smoker 03/18/[address]: 809672015 Never drinks alcohol 03/18/2014 Allergies, Adverse Reactions, [...] Start Date Stop Date Status Fill Instructions Aleve 220 mg tablet RxNorm: 917625 Tablet(s) TAKE ONE TABLET BY MOUTH TWICE DAILY 05/12/2017 09/08/2017 Active 05/13/2016 8:39:57 AM Lantus 100 unit/mL subcutaneous solution RxNorm: 045662 INJECT 30 UNITS SUBCUTANEOUSLY DAILY 05/05/20172018 Active 05/05/2017 11:15:06 AM Augmentin 500 mg-125 mg tablet RxNorm: 875208 1 Tablet(s) PO TID 05/02/2017 05/01/2017 Inactive Augmentin 500 mg-125 mg tablet RxNorm: 292847 1 Tablet(s) PO TID 05/02/2017 05/08/2017 Inactive Vesicare 5 mg tablet RxNorm: 982027 1 Tablet(s) PO daily 201608/21/2017 Active gabapentin 100 mg capsule RxNorm: 347484 TAKE 1 CAPSULE BY MOUTH DAILY 04/24/2017 10/20/2017 Active Generic For:NEURONTIN 100 MG CAPSULE 04/24/2017 12:21:48 PM Duragesic 12 mcg/hr transdermal patch RxNorm: 353415 1 Patch TD Q72H 04/22/2017 05/21/2017 Active Duragesic 25 mcg/hr transdermal patch RxNorm: 626238 1 Patch TD Q72H 04/22/2017 05/21/2017 Active capsaicin 0.025 % topical cream RxNorm: 433082 APPLY TOPICALLY FOUR TIMES DAILY 04/10/2017 07/26/2017 Active 04/10/2017 11:05:24 AM N O T I C E Last quantity doesn't match original quantity Duragesic 12 mcg/hr transdermal patch RxNorm: 374387 1 Patch TD Q72H 03/24/2017 04/21/2017 Inactive Duragesic 25 mcg/hr transdermal patch RxNorm: 396706 1 Patch TD Q72H 03/24/2017 04/21/2017 Inactive Duragesic 12 mcg/hr transdermal patch RxNorm: 078304 1 Patch TD Q72H 02/20/2017 03/21/2017 Inactive Voltaren 1 % topical gel RxNorm: 598020 APPLY 4 GRAMS TO LOWER BACK/HIPS FOUR TIMES DAILY 02/13/2017 03/26/2017 Inactive Generic For:VOLTAREN GEL 1% 02/12/2017 9:20:40 AM Vesicare 5 mg tablet RxNorm: 519316 1 Tablet(s) PO daily 201605/04/2017 Inactive Vesicare 5 mg tablet RxNorm: 254811 1 Tablet(s) PO daily 201602/04/2017 Inactive Cozaar 50 mg tablet RxNorm: 944669 TAKE 1 TABLET BY MOUTH DAILY 01/31/2017 07/29/2017 Active Generic For:*COZAAR 50 MG TABLET 01/30/2017 3:58:13 PM Namenda 10 mg tablet RxNorm: 849675 TAKE 1 TABLET BY MOUTH TWICE DAILY 01/31/2017 06/29/2017 Active Generic For:NAMENDA 10MG TAB 01/30/2017 3:57:01 PM gabapentin 300 mg capsule RxNorm: 570341 TAKE 1 CAPSULE(S) BY MOUTH TWICE DAILY 01/31/2017 06/29/2017 Active Generic For:NEURONTIN 300 MG CAPSULE 01/30/2017 3:59: 00 PM trazodone 50 mg tablet RxNorm: 652455 TAKE 1 TABLET BY MOUTH DAILY 01/31/2017 07/29/2017 Active Generic For:DESYREL 50 MG TABLET 01/30/2017 3:57:33 PM Duragesic 12 mcg/hr transdermal patch RxNorm: 993986 1 Patch TD Q72H 01/23/2017 02/19/2017 Inactive Duragesic 25 mcg/hr transdermal patch RxNorm: 131726 1 Patch TD Q72H 01/21/2017 02/19/2017 Inactive Keflex 500 mg capsule RxNorm: 920963 1 Capsule(s) PO TID 201601/09/2017 Inactive Keflex 500 mg capsule RxNorm: 771539 1 Capsule(s) PO TID 201601/19/2017 Inactive Duragesic 12 mcg/hr transdermal patch RxNorm: 188613 1 Patch TD Q72H 12/27/2016 01/22/2017 Inactive Duragesic 25 mcg/hr transdermal patch RxNorm: 656616 1 Patch TD Q72H 12/03/2016 01/01/2017 Inactive Duragesic 12 mcg/hr transdermal patch RxNorm: 251492 1 Patch TD Q72H 11/21/2016 12/20/2016 Inactive Voltaren 1 % topical gel RxNorm: 018719 APPLY 4 GRAMS TO LOWER BACK/HIPS FOUR TIMES DAILY 11/14/2016 12/25/2016 Inactive Generic For:VOLTAREN GEL 1% 11/14/2016 11:44:09 AM capsaicin 0.025 % topical cream RxNorm: 295817 1 Application TOP QID 11/11/2016 04/09/2017 Inactive Lantus 100 unit/mL subcutaneous solution RxNorm: 626077 30 Unit(s) SQ daily 11/11/2016 05/04/2017 Inactive Ocuvite with Lutein 1,000 unit-200 mg-60 unit-2mg tablet RxNorm: 1 Tablet(s) PO daily 11/08/2016 06/05/2017 Active gabapentin 100 mg capsule RxNorm: 830825 TAKE 1 CAPSULE BY MOUTH DAILY 11/08/2016 04/23/2017 Inactive Generic For:NEURONTIN 100 MG CAPSULE 11/08/2016 9:16:54 AM N O T I C E Last quantity doesn't match original quantity Duragesic 25 mcg/hr transdermal patch RxNorm: 301627 1 Patch TD Q72H 11/04/2016 12/02/2016 Inactive Duragesic 12 mcg/hr transdermal patch RxNorm: 184609 1 Patch TD Q72H 10/21/2016 11/19/2016 Inactive Duragesic 25 mcg/hr transdermal patch RxNorm: 268806 1 Patch TD Q72H 10/10/2016 11/03/2016 Inactive senna 8.6 mg tablet RxNorm: 708888 Tablet(s) TAKE 2 TABLETS BY MOUTH DAILY 10/08/2016 05/05/2017 Inactive Generic For:SENOKOT TABLET 10/03/2016 9:56:42 AM 9:56:41 AM senna 8.6 mg tablet RxNorm: 085872 TAKE 2 TABLETS BY MOUTH DAILY 10/03/2016 10/07/2016 Inactive Generic For:SENOKOT TABLET 10/03/2016 9:56:42 AM 10/03/2016 9:56: 41 AM Duragesic 12 mcg/hr transdermal patch RxNorm: 562431 1 Patch TD Q72H 09/25/2016 10/20/2016 Inactive mecobalamin (vitamin B12) 5,000 mcg disintegrating tablet RxNorm: 2563069 1 Tablet (s) PO daily 09/13/2016 08/08/2017 Active gabapentin 300 mg capsule RxNorm: 271612 1 Capsule(s) PO BID 01/30/2017 Inactive Namenda 10 mg tablet RxNorm: 374513 TAKE 1 TABLET BY MOUTH TWICE DAILY 09/13/2016 01/30/2017 Inactive Generic For:NAMENDA 10MG TAB 09/13/2016 2:21:26 PM N O T I C E Last quantity doesn't match original quantity trazodone 50 mg tablet RxNorm: 682519 TAKE 1 TABLET BY MOUTH DAILY 09/13/2016 01/30/2017 Inactive Generic For:DESYREL 50 MG TABLET 09/13/2016 2:21:21 PM N O T I C E Last quantity doesn't match original quantity Cozaar 50 mg tablet RxNorm: 043074 TAKE 1 TABLET BY MOUTH DAILY 09/13/2016 01/30/2017 Inactive Generic For:*COZAAR 50 MG TABLET 09/13/2016 2:21:15 PM N O T I C E Last quantity doesn't match original quantity Duragesic 25 mcg/hr transdermal patch RxNorm: 601869 1 Patch TD Q72H 09/09/2016 10/08/2016 Inactive Voltaren 1 % topical gel RxNorm: 562360 4 Gram(s) TOP to lower back/hips QID 09/02/2016 11/13/2016 Inactive Duragesic 12 mcg/hr transdermal patch RxNorm: 067894 1 Patch TD Q72H 08/21/2016 09/19/2016 Inactive Myrbetriq 50 mg tablet,extended release RxNorm: 9355910 TAKE 1 TABLET BY MOUTH DAILY 08/15/2016 03/12/2017 Inactive 08/15/2016 1:38:02 PM N O T I C E Last quantity doesn't match original quantity gabapentin 100 mg capsule RxNorm: 161342 TAKE 1 CAPSULE BY MOUTH DAILY 08/15/2016 11/07/2016 Inactive Generic For:NEURONTIN 100 MG CAPSULE 08/15/2016 1:37:55 PM N O T I C E Last quantity doesn't match original quantity hydrocodone 5 mg-acetaminophen 325 mg tablet RxNorm: 986108 1 Tablet(s) PO Q4H as needed 08/08/2016 09/06/2016 Inactive Keflex 500 mg capsule RxNorm: 209908 1 Capsule(s) PO TID 201608/04/2016 Inactive Duragesic 12 mcg/hr transdermal patch RxNorm: 880500 1 Patch TD Q72H 07/24/2016 08/20/2016 Inactive Mirapex 1 mg tablet RxNorm: 113880 TAKE 1 TABLET BY MOUTH THREE TIMES DAILY 07/17/2016 10/14/2016 Inactive Generic For:MIRAPEX 1MG TAB BOEH 07/17/2016 10:01: 58 AM carbidopa 25 mg-levodopa 100 mg tablet RxNorm: 755002 TAKE 2 TABLETS BY MOUTH FOUR TIMES DAILY 07/17/2016 10/14/2016 Inactive Generic For:SINEMET-25/100 TABLET 07/17/2016 10:02:12 AM Duragesic 25 mcg/hr transdermal patch RxNorm: 441000 1 Patch TD q72 hours 07/15/2016 08/13/2016 Inactive Voltaren 1 % topical gel RxNorm: 202691 4 Gram(s) TOP to lower back/hips QID 07/11/2016 09/01/2016 Inactive capsaicin 0.025 % topical cream RxNorm: 897010 1 Application TOP QID 07/05/2016 11/10/2016 Inactive Refresh Tears 0.5 % eye drops RxNorm: 0821891 1 Drop(s) OPH daily as needed for dry eyes 06/28/2016 No Stop Date Active Duragesic 12 mcg/hr transdermal patch RxNorm: 651589 1 TD q72 hours 06/27/2016 07/23/2016 Inactive Vitamin D2 50,000 unit capsule RxNorm: 643659 TAKE 1 CAPSULE BY MOUTH WEEKLY 06/21/2016 07/18/2016 Inactive Generic For:DRISDOL 10296 UNITS CAP 06/18/2016 4:31: 30 PM Mirapex 1 mg tablet RxNorm: 131980 TAKE 1 TABLET BY MOUTH THREE TIMES DAILY 06/19/2016 07/16/2016 Inactive Generic For:MIRAPEX 1MG TAB [facility] 06/18/2016 4:32: 01 PM N O T I C E Last quantity doesn't match original quantity Cozaar 50 mg tablet RxNorm: 160245 TAKE 1 TABLET BY MOUTH DAILY 06/19/2016 09/12/2016 Inactive Generic For:*COZAAR 50 MG TABLET N O T I C E Last quantity doesn't match original quantity carbidopa 25 mg-levodopa 100 mg tablet RxNorm: 818570 TAKE 2 TABLETS BY MOUTH FOUR TIMES DAILY 06/19/2016 07/16/2016 Inactive Generic For:SINEMET-25/100 TABLET N O T I C E Last quantity doesn't match original quantity Namenda 10 mg tablet RxNorm: 039567 TAKE 1 TABLET BY MOUTH TWICE DAILY 06/19/2016 09/12/2016 Inactive Generic For:NAMENDA 10MG TAB 06/18/2016 4:32:09 PM N O T I C E Last quantity doesn't match original quantity trazodone 50 mg tablet RxNorm: 867146 TAKE 1 TABLET BY MOUTH DAILY 06/19/2016 09/12/2016 Inactive Generic For:DESYREL 50 MG TABLET N O T I C E Last quantity doesn't match original quantity Duragesic 25 mcg/hr transdermal patch RxNorm: 897902 1 Patch TD q72 hours 06/12/2016 07/11/2016 Inactive Aleve 220 mg tablet RxNorm: 951617 Tablet(s) TAKE ONE TABLET BY MOUTH TWICE DAILY 05/27/2016 09/23/2016 Inactive 05/13/2016 8:39:57 AM Duragesic 12 mcg/hr transdermal patch RxNorm: 910816 1 TD q72 hours 05/27/2016 06/25/2016 Inactive gabapentin 300 mg capsule RxNorm: 769027 1 Capsule(s) PO BID 05/23/2016 Inactive Lantus 100 unit/mL subcutaneous solution RxNorm: 017566 30 Unit(s) SQ daily 05/24/2016 05/23/2016 Inactive gabapentin 300 mg capsule RxNorm: 812976 1 Capsule(s) PO BID 09/12/2016 Inactive Lantus 100 unit/mL subcutaneous solution RxNorm: 013792 30 Unit(s) SQ daily 05/24/2016 11/10/2016 Inactive carbidopa 25 mg-levodopa 100 mg tablet RxNorm: 143974 TAKE 2 TABLETS BY MOUTH FOUR TIMES DAILY 05/22/2016 06/18/2016 Inactive Generic For:SINEMET-25/100 TABLET 05/22/2016 9:39:54 AM Namenda 10 mg tablet RxNorm: 742689 TAKE 1 TABLET BY MOUTH TWICE DAILY 05/22/2016 06/18/2016 Inactive Generic For:NAMENDA 10MG TAB 05/22/2016 9:39:26 AM mecobalamin (vitamin B12) 5,000 mcg disintegrating tablet RxNorm: 7405951 1 Tablet (s) PO daily 05/22/2016 09/12/2016 Inactive Cozaar 50 mg tablet RxNorm: 447044 TAKE 1 TABLET BY MOUTH DAILY 05/22/2016 06/18/2016 Inactive Generic For:*COZAAR 50 MG TABLET 05/22/2016 9:39:36 AM Mirapex 1 mg tablet RxNorm: 039532 TAKE 1 TABLET BY MOUTH THREE TIMES DAILY 05/22/2016 06/18/2016 Inactive Generic For:MIRAPEX 1MG TAB BOEH 05/22/2016 9:39: 17 AM trazodone 50 mg tablet RxNorm: 128581 TAKE 1 TABLET BY MOUTH DAILY 05/22/2016 06/18/2016 Inactive Generic For:DESYREL 50 MG TABLET 05/22/2016 9:39:07 AM Ocuvite with Lutein 1,000 unit-200 mg-60 unit-2mg tablet RxNorm: 1 Tablet(s) PO daily 05/21/2016 05/20/2016 Inactive gabapentin 100 mg capsule RxNorm: 495810 TAKE 1 CAPSULE BY MOUTH DAILY 05/21/2016 08/14/2016 Inactive Generic For:NEURONTIN 100 MG CAPSULE 05/21/2016 2:57:16 PM Myrbetriq 50 mg tablet,extended release RxNorm: 3423207 TAKE 1 TABLET BY MOUTH DAILY 05/21/2016 08/15/2016 Inactive 05/21/2016 2:59:11 PM Ocuvite with Lutein 1,000 unit-200 mg-60 unit-2mg tablet RxNorm: 1 Tablet(s) PO daily 05/21/2016 11/07/2016 Inactive Aleve 220 mg tablet RxNorm: 993236 TAKE ONE TABLET BY MOUTH TWICE DAILY 05/14/2016 05/26/2016 Inactive 05/13/2016 8:39:57 AM Duragesic 25 mcg/hr transdermal patch RxNorm: 044844 1 Patch TD q72 hours 05/14/2016 06/11/2016 Inactive Duragesic 12 mcg/hr transdermal patch RxNorm: 744444 1 TD q72 hours 04/24/2016 05/23/2016 Inactive capsaicin 0.025 % topical cream RxNorm: 850565 1 Application TOP QID 04/16/2016 07/04/2016 Inactive Duragesic 12 mcg/hr transdermal patch RxNorm: 166145 1 TD q72 hours 04/10/2016 04/23/2016 Inactive Duragesic 25 mcg/hr transdermal patch RxNorm: 901774 1 TD q72 hours 04/10/2016 05/09/2016 Inactive Cipro 500 mg tablet RxNorm: 428598 1 Tablet(s) PO BID 201504/13/2016 Inactive hydrocodone 5 mg-acetaminophen 325 mg tablet RxNorm: 244566 1 Tablet(s) PO Q4H as needed 03/20/2016 04/18/2016 Inactive Duragesic 12 mcg/hr transdermal patch RxNorm: 977698 1 TD q72 hours 03/20/2016 04/09/2016 Inactive Duragesic 25 mcg/hr transdermal patch RxNorm: 579305 1 TD q72 hours 03/15/2016 04/09/2016 Inactive hydrocodone 5 mg-acetaminophen 325 mg tablet RxNorm: 184257 1 Tablet(s) PO Q4H as needed 03/08/2016 03/19/2016 Inactive Cipro 500 mg tablet RxNorm: 404085 1 Tablet(s) PO BID 201503/06/2016 Inactive Cipro 500 mg tablet RxNorm: 024370 1 Tablet(s) PO BID 201503/13/2016 Inactive Duragesic 12 mcg/hr transdermal patch RxNorm: 353784 1 TD q72 hours 02/27/2016 03/19/2016 Inactive Duragesic 12 mcg/hr transdermal patch RxNorm: 195427 1 TD q72 hours 01/29/2016 02/26/2016 Inactive [SAVINGS FOR NON-COVERED DRUGS -- BIN:[id number], PCN: ASPROD1, Group : XXXXX, ID# [id number], Questions: . THIS IS NOT INSURANCE.] Lasix 20 mg tablet RxNorm: 550057 2 Tablet(s) PO daily 201501/28/2016 Inactive potassium chloride ER 10 mEq tablet,extended release RxNorm: 231443 2 Tablet(s) PO daily to take while taking the lasix 01/24/2016 01/28/2016 Inactive Duragesic 25 mcg/hr transdermal patch RxNorm: 117324 1 TD q72 hours 01/16/2016 02/14/2016 Inactive Duragesic 25 mcg/hr transdermal patch RxNorm: 945575 1 TD q72 hours APPLY WITH DURAGESIC 12MCG 1 Q 72 01/03/20162015 Inactive [SAVINGS FOR NON-COVERED DRUGS -- BIN:481026, PCN: ASPROD1, Group: XXXXX, ID# [id number], Questions: [phone]. THIS IS NOT INSURANCE.] hydrocodone 5 mg-acetaminophen 325 mg tablet RxNorm: 311775 1 Tablet(s) PO Q4H as needed 01/02/2016 03/07/2016 Inactive [SAVINGS FOR NON-COVERED DRUGS -- BIN:831919 , PCN: ASPROD1, Group: XXXXX, ID# [id number], Questions: . THIS IS NOT INSURANCE.] Myrbetriq 50 mg tablet,extended release RxNorm: 8672790 1 Tablet(s) PO daily 12/28/2015 04/25/2016 Inactive PA approved Duragesic 25 mcg/hr transdermal patch RxNorm: 151798 1 TD q72 hours 12/18/2015 01/02/2016 Inactive [SAVINGS FOR NON-COVERED DRUGS -- BIN:620366, PCN: ASPROD1, Group : XXXXX, ID# [id number], Questions: . THIS IS NOT INSURANCE.] Duragesic 25 mcg/hr transdermal patch RxNorm: 321381 1 TD q72 hours 11/17/2015 12/17/2015 Inactive [SAVINGS FOR NON-COVERED DRUGS -- BIN:448467, PCN: ASPROD1, Group : XXXXX, ID# XXXXXXX, Questions: . THIS IS NOT INSURANCE.] Myrbetriq 50 mg tablet,extended release RxNorm: 3311058 1 Tablet(s) PO daily 10/31/2015 12/27/2015 Inactive increase dose Myrbetriq 25 mg tablet,extended release RxNorm: 2738209 1 Tablet(s) PO daily 10/24/2015 10/30/2015 Inactive send PA form if required Myrbetriq 25 mg tablet,extended release RxNorm: 6493949 1 Tablet(s) PO daily 10/24/2015 10/23/2015 Inactive send PA form if required Duragesic 25 mcg/hr transdermal patch RxNorm: 191473 1 TD q72 hours 10/18/2015 11/16/2015 Inactive [SAVINGS FOR NON-COVERED DRUGS -- BIN:419238, PCN: ASPROD1, Group : XXXXX, ID# XXXXXXX, Questions: . THIS IS NOT INSURANCE.] Namenda 10 mg tablet RxNorm: 739155 1 Tablet(s) PO BID 201505/21/2016 Inactive Lantus Solostar 100 unit/mL (3 mL) subcutaneous insulin pen RxNorm: 528705 30 Unit(s) SQ daily (may be adjusted for further glucose control) 10/12/2015 05/23/2016 Inactive [SAVINGS FOR UNINSURED PATIENTS -- BIN:220609, PCN: ASPROD1, Group: AME08, ID# [id number], Process claim through [employer], for questions: [phone]. THIS IS NOT INSURANCE.] Mirapex 1 mg tablet RxNorm: 745057 1 Tablet(s) PO TID 201505/21/2016 Inactive Duragesic 25 mcg/hr transdermal patch RxNorm: 119648 1 TD q72 hours 09/18/2015 10/17/2015 Inactive [SAVINGS FOR NON-COVERED DRUGS -- BIN:447289, PCN: ASPROD1, Group : XXXXX, ID# XXXXXXX, Questions: . THIS IS NOT INSURANCE.] Sinemet CR 50 mg-200 mg tablet,extended release RxNorm: 549001 2 Tablet(s) PO QID 08/21/2015 10/12/2015 Inactive Duragesic 25 mcg/hr transdermal patch RxNorm: 321904 1 TD q72 hours 08/21/2015 09/17/2015 Inactive [SAVINGS FOR NON-COVERED DRUGS -- BIN:607234, PCN: ASPROD1, Group : XXXXX, ID# XXXXXXX, Questions: . THIS IS NOT INSURANCE.] Namenda XR 7 mg-14 mg-21 mg-28 mg capsule,sprinkle,ER 24hr, dose pack RxNorm: 941580 Capsule(s) PO 08/21/2015 08/21/2015 Inactive gabapentin 100 mg capsule RxNorm: 791711 1 Capsule(s) PO once daily at noon and 300mg BID 08/21/2015 05/20/2016 Inactive [SAVINGS FOR NON-COVERED DRUGS -- BIN: 306559, PCN: ASPROD1, Group: XXXXX, ID# [email or web address], Questions: . THIS IS NOT INSURANCE.] Mirapex 1 mg tablet RxNorm: 458220 1 Tablet(s) PO QPM 201509/19/2015 Inactive Lantus Solostar 100 unit/mL (3 mL) subcutaneous insulin pen RxNorm: 342226 25 Unit(s) SQ daily (may be adjusted for further glucose control) 08/21/2015 10/11/2015 Inactive [SAVINGS FOR UNINSURED PATIENTS -- BIN:880478, PCN: ASPROD1, Group: AME08, ID# [id number], Process claim through [employer], for questions: [phone]. THIS IS NOT INSURANCE.] Duragesic 12 mcg/hr transdermal patch RxNorm: 175443 1 TD q72 hours 08/04/2015 08/20/2015 Inactive [SAVINGS FOR NON-COVERED DRUGS -- BIN:365560, PCN: ASPROD1, Group : XXXXX, ID# XXXXXXX, Questions: . THIS IS NOT INSURANCE.] Augmentin 500 mg-125 mg tablet RxNorm: 207336 1 Tablet(s) PO TID 07/27/2015 07/26/2015 Inactive Augmentin 500 mg-125 mg tablet RxNorm: 321060 1 Tablet(s) PO TID 07/27/2015 08/02/2015 Inactive Cipro 500 mg tablet RxNorm: 440725 1 Tablet(s) PO BID 201507/06/2015 Inactive Cipro 500 mg tablet RxNorm: 018894 1 Tablet(s) PO BID 201510/11/2015 Inactive Duragesic 12 mcg/hr transdermal patch RxNorm: 752341 1 TD q72 hours 07/04/2015 08/03/2015 Inactive [SAVINGS FOR NON-COVERED DRUGS -- BIN:491880, PCN: ASPROD1, Group : XXXXX, ID# XXXXXXX, Questions: . THIS IS NOT INSURANCE.] hydrocodone 5 mg-acetaminophen 325 mg tablet RxNorm: 054746 1 Tablet(s) PO Q4H as needed 07/03/2015 01/01/2016 Inactive [SAVINGS FOR NON-COVERED DRUGS -- BIN:567375 , PCN: ASPROD1, Group: XXXXX, ID# [id number], Questions: . THIS IS NOT INSURANCE.] Duragesic 12 mcg/hr transdermal patch RxNorm: 423943 1 TD q72 hours 06/05/2015 07/03/2015 Inactive [SAVINGS FOR NON-COVERED DRUGS -- BIN:809411, PCN: ASPROD1, Group : XXXXX, ID# XXXXXXX, Questions: . THIS IS NOT INSURANCE.] Duragesic 12 mcg/hr transdermal patch RxNorm: 084395 1 TD q72 hours 05/09/2015 06/04/2015 Inactive [SAVINGS FOR NON-COVERED DRUGS -- BIN:458893, PCN: ASPROD1, Group : XXXXX, ID# XXXXXXX, Questions: . THIS IS NOT INSURANCE.] hydrocodone 5 mg-acetaminophen 325 mg tablet RxNorm: 502271 1 Tablet(s) PO Q4H as needed 04/27/2015 07/02/2015 Inactive [SAVINGS FOR NON-COVERED DRUGS -- BIN:856857 , PCN: ASPROD1, Group: XXXXX, ID# XXXXXXX, Questions: . THIS IS NOT INSURANCE.] Duragesic 12 mcg/hr transdermal patch RxNorm: 960626 1 TD q72 hours 04/06/2015 05/08/2015 Inactive [SAVINGS FOR NON-COVERED DRUGS -- BIN:530522, PCN: ASPROD1, Group : XXXXX, ID# XXXXXXX, Questions: . THIS IS NOT INSURANCE.] Duragesic 12 mcg/hr transdermal patch RxNorm: 812850 1 TD q72 hours 03/07/2015 04/05/2015 Inactive [SAVINGS FOR NON-COVERED DRUGS -- BIN:515605, PCN: ASPROD1, Group : XXXXX, ID# XXXXXXX, Questions: . THIS IS NOT INSURANCE.] hydrocodone 5 mg-acetaminophen 325 mg tablet RxNorm: 865944 1 Tablet(s) PO Q4H as needed 02/16/2015 04/26/2015 Inactive [SAVINGS FOR NON-COVERED DRUGS -- BIN:853972 , PCN: ASPROD1, Group: XXXXX, ID# XXXXXXX, Questions: . THIS IS NOT INSURANCE.] Mirapex 0.25 mg tablet RxNorm: 390604 1 Tablet(s) PO QPM 201403/17/2015 Inactive Duragesic 12 mcg/hr transdermal patch RxNorm: 283754 1 TD q72 hours 01/31/2015 03/06/2015 Inactive [SAVINGS FOR NON-COVERED DRUGS -- BIN:575729, PCN: ASPROD1, Group : XXXXX, ID# XXXXXXX, Questions: . THIS IS NOT INSURANCE.] Duragesic 12 mcg/hr transdermal patch RxNorm: 328767 1 TD q72 hours 01/03/2015 01/30/2015 Inactive [SAVINGS FOR NON-COVERED DRUGS -- BIN:928236, PCN: ASPROD1, Group : XXXXX, ID# XXXXXXX, Questions: . THIS IS NOT INSURANCE.] hydrocodone 5 mg-acetaminophen 325 mg tablet RxNorm: 827805 1 Tablet(s) PO Q4H as needed 12/21/2014 02/15/2015 Inactive [SAVINGS FOR NON-COVERED DRUGS -- BIN:749832 , PCN: ASPROD1, Group: XXXXX, ID# XXXXXXX, Questions: . THIS IS NOT INSURANCE.] Duragesic 12 mcg/hr transdermal patch RxNorm: 089806 1 TD q72 hours 12/14/2014 01/02/2015 Inactive [SAVINGS FOR NON-COVERED DRUGS -- BIN:957174, PCN: ASPROD1, Group : XXXXX, ID# XXXXXXX, Questions: . THIS IS NOT INSURANCE.] Duragesic 12 mcg/hr transdermal patch RxNorm: 485189 1 TD q72 hours 11/07/2014 12/13/2014 Inactive [SAVINGS FOR NON-COVERED DRUGS -- BIN:369906, PCN: ASPROD1, Group : XXXXX, ID# XXXXXXX, Questions: . THIS IS NOT INSURANCE.] Vitamin D2 50,000 unit capsule RxNorm: 568582 TAKE 1 CAPSULE WEEKLY (AFTER FINISHED WITH VIT D 21344P FOR THE 12 WEEKS, START OTC VITAMIN D 2000 UNITS DAILY) 10/24/2014 06/20/2016 Inactive Duragesic 12 mcg/hr transdermal patch RxNorm: 129237 1 TD q72 hours 10/11/2014 11/06/2014 Inactive [SAVINGS FOR NON-COVERED DRUGS -- BIN:122628, PCN: ASPROD1, Group : XXXXX, ID# XXXXXXX, Questions: . THIS IS NOT INSURANCE.] Sinemet CR 50 mg-200 mg tablet,extended release RxNorm: 742906 1 Tablet(s) PO BID 10/05/2014 05/02/2015 Inactive Lantus Solostar 100 unit/mL (3 mL) subcutaneous insulin pen RxNorm: 941026 15 Unit(s) SQ daily (may be adjusted for further glucose control) 09/28/2014 08/20/2015 Inactive [SAVINGS FOR UNINSURED PATIENTS -- BIN:651309, PCN: ASPROD1, Group: AME08, ID# [id number], Process claim through [employer], for questions: [phone]. THIS IS NOT INSURANCE.] Duragesic 12 mcg/hr transdermal patch RxNorm: 493840 1 TD q72 hours 09/26/2014 10/10/2014 Inactive [SAVINGS FOR NON-COVERED DRUGS -- BIN:559970, PCN: ASPROD1, Group : XXXXX, ID# XXXXXXX, Questions: . THIS IS NOT INSURANCE.] hydrocodone 5 mg-acetaminophen 325 mg tablet RxNorm: 001432 1 Tablet(s) PO Q4H as needed 09/23/2014 12/20/2014 Inactive [SAVINGS FOR NON-COVERED DRUGS -- BIN:745347 , PCN: ASPROD1, Group: XXXXX, ID# XXXXXXX, Questions: . THIS IS NOT INSURANCE.] Duragesic 12 mcg/hr transdermal patch RxNorm: 477563 1 TD q72 hours 09/09/2014 09/25/2014 Inactive [SAVINGS FOR NON-COVERED DRUGS -- BIN:808500, PCN: ASPROD1, Group : XXXXX, ID# XXXXXXX, Questions: . THIS IS NOT INSURANCE.] carbidopa 25 mg-levodopa 100 mg tablet RxNorm: 982880 2 in the am 1 at noon and 1 katie Tablet(s) PO BID 08/31/20142014 Inactive [SAVINGS FOR NON-COVERED DRUGS -- BIN:423490, PCN: ASPROD1, Group: XXXXX, ID# XXXXXXX, Questions: [phone]. THIS IS NOT INSURANCE.] Vitamin D2 50,000 unit capsule RxNorm: 962142 1 CAPSULE(S) PO WEEKLY X 12 WEEKS 08/15/2014 10/23/2014 Inactive hydrocodone 5 mg-acetaminophen 325 mg tablet RxNorm: 171779 1 Tablet(s) PO Q4H as needed 08/12/2014 09/22/2014 Inactive [SAVINGS FOR NON-COVERED DRUGS -- BIN:[id number] , PCN: ASPROD1, Group: XXXXX, ID# [id number], Questions: . THIS IS NOT INSURANCE.] hydrocodone 10 mg-acetaminophen 325 mg tablet RxNorm: 567626 1/2 to 1 Tablet(s) PO q 4 hours prn for uncontrolled pain 07/14/2014 08/11/2014 Inactive [SAVINGS FOR NON-COVERED DRUGS -- BIN:[id number], PCN: ASPROD1, Group: XXXXX, ID# [id number], Questions: . THIS IS NOT INSURANCE.] gabapentin 100 mg capsule RxNorm: 218567 1 Capsule(s) PO nightly x1week, then twice daily x 1 week, then tihree times daily thereafter 08/20/2015 Inactive [SAVINGS FOR NON-COVERED DRUGS -- BIN:431277, PCN: ASPROD1, Group: XXXXX, ID# [id number], Questions: . THIS IS NOT INSURANCE.] Bactrim DS 800 mg-160 mg tablet RxNorm: 887295 1 Tablet(s) PO BID 07/01/2014 07/07/2014 Inactive [SAVINGS FOR NON-COVERED DRUGS -- BIN:340184, PCN: ASPROD1, Group: XXXXX, ID# [id number], Questions: . THIS IS NOT INSURANCE.] Bactrim DS 800 mg-160 mg tablet RxNorm: 869531 1 Tablet(s) PO BID 07/01/2014 06/30/2014 Inactive Vitamin D2 50,000 unit capsule RxNorm: 808431 1 Capsule(s) PO weekly x 12 weeks 06/07/2014 08/14/2014 Inactive after patient is finished with vit D 72058x for the 12 weeks, she is to start on OTC vitamin D 2000 units daily Keflex 500 mg capsule RxNorm: 260811 1 Capsule(s) PO BID 201405/29/2014 Inactive carbidopa 25 mg-levodopa 100 mg tablet RxNorm: 271427 1 Tablet(s) PO BID 05/30/2014 08/30/2014 Inactive [SAVINGS FOR UNINSURED PATIENTS -- BIN:[id number], PCN: ASPROD1 , Group: AMDianne, ID# [id number], Process claim through Jammcard, for questions: 1- [phone]. THIS IS NOT INSURANCE.] Keflex 500 mg capsule RxNorm: 777783 1 Capsule(s) PO BID 201406/05/2014 Inactive [SAVINGS FOR UNINSURED PATIENTS -- BIN:327889, PCN: ASPROD1, Group: AMDianne, ID # [id number], Process claim through MedImp[employer], for questions: . THIS IS NOT INSURANCE.] carbidopa 25 mg-levodopa 100 mg tablet RxNorm: 742664 1 Tablet(s) PO BID 05/23/2014 05/29/2014 Inactive [SAVINGS FOR UNINSURED PATIENTS -- BIN:613026, PCN: ASPROD1 , Group: [id number], ID# [id number], Process claim through [employer], for questions: 1- [phone]. THIS IS NOT INSURANCE.] carbidopa 25 mg-levodopa 100 mg tablet RxNorm: 587781 1/2 Tablet(s) PO BID 05/03/2014 05/22/2014 Inactive [SAVINGS FOR UNINSURED PATIENTS -- BIN:732084, PCN: ASPROD1, Group: [id number], ID# [id number], Process claim through [employer]axLinear[employer], for questions: . THIS IS NOT INSURANCE.] pen needle, diabetic, remover & disposal unit 31 x 5/16" RxNorm: 1 use Miscellaneous 03/31/2014 09/21/2015 Inactive [SAVINGS FOR UNINSURED PATIENTS -- BIN :172020, PCN: ASPROD1, Group: [id number], ID# [id number], Process claim through [employer], for questions: . THIS IS NOT INSURANCE.] Lantus Solostar 100 unit/mL (3 mL) subcutaneous insulin pen RxNorm: 479969 10 Unit(s) SQ daily (may be adjusted for further glucose control) 03/31/2014 09/27/2014 Inactive [SAVINGS FOR UNINSURED PATIENTS -- BIN:467637, PCN: ASPROD1, Group: [id number], ID# [id number], Process claim through [employer], for questions: [phone]. THIS IS NOT INSURANCE.] Vitamin D2 50,000 unit capsule RxNorm: 336442 1 Capsule(s) PO weekly x 12 weeks 03/22/2014 06/06/2014 Inactive after patient is finished with vit D 68545t for the 12 weeks, she is to start on OTC vitamin D 2000 units daily Vitamin D2 50,000 unit capsule RxNorm: 550302 1 Capsule(s) PO weekly x 12 weeks 03/22/2014 03/21/2014 Inactive after patient is finished with vit D 32803b for the 12 weeks, she is to start on OTC vitamin D 2000 units daily metformin 500 mg tablet RxNorm: 115298 1 Tablet(s) PO BID 03/1803/30/2014 Inactive [SAVINGS FOR UNINSURED PATIENTS -- BIN:004117, PCN: ASPROD1, Group: [id number], ID# [id number], Process claim through [employer]Imp[employer], for questions: . THIS IS NOT INSURANCE.] Lidoderm 5 % (700 mg/patch) adhesive patch RxNorm: 4326653 1 TOP PRN for back pain. NEEDS PA IF ORDERED AGAIN No Start Date Active diclofenac sodium topical RxNorm: 3355 topical No Start Date Active Lasix 20 mg tablet RxNorm: 276925 Tablet(s) daily x 5 with k 10 daily x 5 PO No Start Date Active multivitamin tablet RxNorm: 1 Tablet(s) PO daily No Start Date Active oxybutynin chloride 5 mg tablet RxNorm: 582033 1 Tablet(s) PO daily No Start Date 03/30/2014 Inactive Sinemet CR 25 mg-100 mg tablet,extended release RxNorm: 951724 2 Tablet(s) PO QID No Start Date 06/19/2016 Inactive Namenda 5 mg tablet RxNorm: 261618 Tablet(s) PO No Start Date 10/11/2015 Inactive amlodipine 2.5 mg tablet RxNorm: 775579 1 Tablet(s) PO daily No Start Date 03/30/2014 Inactive Cozaar 50 mg tablet RxNorm: 446597 1 Tablet(s) PO daily No Start Date 05/21/2016 Inactive Voltaren 1 % topical gel RxNorm: 435521 4 Gram(s) TOP to lower back/hips QID No Start Date 07/10/2016 Inactive hydrochlorothiazide 25 mg tablet RxNorm: 903543 1 Tablet(s) PO daily No Start Date 03/30/2014 Inactive pramipexole 0.25 mg tablet RxNorm: 249788 1 Tablet(s) PO daily No Start Date 05/02/2014 Inactive simvastatin 40 mg tablet RxNorm: 786761 oral No Start Date 05/02/2014 Inactive vitamin L78-zgmtcus B1 oral liquid RxNorm: PO No Start Date 10/12/2015 Inactive 2000u daily Fosamax Plus D oral RxNorm: 414484 oral No Start Date 05/02/2014 Inactive Actos 45 mg tablet RxNorm: 356392 1 Tablet(s) PO daily No Start Date 03/30/2014 Inactive Duragesic 12 mcg/hr transdermal patch RxNorm: 167648 1 TD q72 hours No Start Date 09/08/2014 Inactive Vitamin D3 2,000 unit capsule RxNorm: 790848 1 Capsule(s) PO daily No Start Date 11/07/2015 Inactive mecobalamin 5,000 mcg disintegrating tablet RxNorm: 8549906 1 Tablet(s) PO daily No Start Date 05/21/2016 Inactive magnesium 250 mg tablet RxNorm: 1 Tablet(s) PO daily No Start Date 05/02/2014 Inactive Refresh Tears 0.5 % eye drops RxNorm: 6470598 1 Drop(s) OPH daily as needed for dry eyes No Start Date 06/27/2016 Inactive furosemide 40 mg tablet RxNorm: 854723 1 Tablet(s) PO daily No Start Date 05/02/2014 Inactive trazodone 50 mg tablet RxNorm: 059543 1 Tablet(s) PO QHS No Start Date 05/21/2016 Inactive glipizide 10 mg tablet RxNorm: 176355 1 Tablet(s) PO daily No Start Date 05/02/2014 Inactive hydrocodone 10 mg-acetaminophen 325 mg tablet RxNorm: 463559 oral No Start Date 07/13/2014 Inactive Refresh ophthalmic RxNorm: 816831 ophthalmic No Start Date 06/28/2016 Inactive capsaicin 0.025 % topical cream RxNorm: 775560 1 Application TOP QID No Start Date 04/15/2016 Inactive Aleve 220 mg tablet RxNorm: 711199 1 Tablet(s) PO daily as needed No Start Date 05/13/2016 Inactive senna 8.6 mg tablet RxNorm: 753189 1 Tablet(s) PO daily as needed No Start Date 10/02/2016 Inactive biotin 1000 mcg RxNorm : 1 Tablet(s) PO daily No Start Date 05/02/2014 Inactive ranitidine 150 mg capsule RxNorm: 650298 2 Capsule(s) PO daily No Start Date 05/02/2014 Inactive hydrocodone 5 mg-acetaminophen 325 mg tablet RxNorm: 018905 1 Tablet(s) PO Q4H as needed No Start Date 08/11/2014 Inactive Calcitrate-Vitamin D oral RxNorm: 1895 oral No Start Date 11/07/2015 Inactive potassium chloride RxNorm: 03377 miscellaneous No Start Date 05/02/2014 Inactive metformin 500 mg tablet RxNorm: 357226 2 Tablet(s) PO daily No Start Date 03/17/2014 Inactive aspirin 81 mg tablet RxNorm: 420354 1 Tablet(s) PO daily No Start Date [...] 788.1 01/16/2015 Parkinson's disease ICD-9: 332.0 2014 EDEMA ICD-9: 782.3 12/09/2014 DM W/O COMPLICATION TYPE II, 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 12/09/2014 UTI (urinary tract infection) ICD-9: 599.0 12/09/2014 DIABETES TYPE II ICD-9: 250.00 2014 MALAISE AND FATIGUE ICD-9: 780.79 2014 Cellulitis ICD-9: 682.9 07/19/2014 Hip pain ICD-9: 719.45 07/19/2014 Back pain ICD-9: 724.5 07/19/2014 Chronic [...] Item Item Code Result Date Culture Urine [id number] URINE CULTURE SEE NOTES 05/02/2017 Culture Urine [id number] Continued Results 05/02/2017 Urine Culture Ucult Complete [...] U-Com Culture to follow 04/29/2017 Culture Urine [id number] URINE CULTURE SEE NOTES 04/07/2017 Culture Urine [id number] Continued Results 04/07/2017 Urine Culture Ucult Complete [...] U-Com Culture to follow 04/04/2017 Culture Urine [id number] URINE CULTURE SEE NOTES 01/13/2017 Culture Urine [id number] Continued Results 01/13/2017 Urine Culture Ucult Complete [...] Acid Ord77 Uric A 4.5 mg/dL 07/29/2016 Tsh Ord6 hTSH II 1.57 uIU/mL 06/26/2016 %Hba1C Fnq464 % HbA1c 55722-1 7.6 % 06/26/2016 %Hba1C Mgr839 Gluc Ave 171 mg/dL 06/26/2016 Vitamin D 25 Oh Jkc4172 VITAMIN D, 25 HYDROXY 65.10 ng/mL Lipid Ord30 CHOL 225 mg/dL 06/26/2016 Lipid Ord30 HDL 49.0 mg/dl 06/26/2016 Lipid Ord30 TRIG 208 mg/dL 06/26/2016 Lipid Ord30 LDL 134 mg/dL 06/26/2016 Lipid Ord30 C/HDL 4.6 Ratio 06/26/2016 Comp Metabolic Grz663 NA 134 mEq/L 06/26/2016 Comp Metabolic Tmg486 K 4.8 mEq/L 06/26/2016 Comp Metabolic Clf554 CL 98 mEq/L 06/26/2016 Comp Metabolic Dve803 CO2 28.0 mEq/L 06/26/2016 Comp Metabolic Kni270 ANION GAP 13 06/26/2016 Comp Metabolic Nbq076 GLUCOSE 270 mg/dL 06/26/2016 Comp Metabolic Jyd719 Creat 0.9 mg/dL 06/26/2016 Comp Metabolic Zfg852 eGFR 68 ml/min/1.73m2 06/26/2016 Comp Metabolic Shh700 BUN 22 mg/dL 06/26/2016 Comp Metabolic Ily834 B/C Ratio 25.9 Ratio 06/26/2016 Comp Metabolic Lfj760 CALCIUM 9.0 mg/dL 06/26/2016 Comp Metabolic Ptp350 ALK PHOS 119 U/L 06/26/2016 Comp Metabolic Cwm442 AST(SGOT) 34 U/L 06/26/2016 Comp Metabolic Hhd404 ALT(SGPT) 18 U/L 06/26/2016 Comp Metabolic Bva601 BILI T 0.5 mg/dL 06/26/2016 Comp Metabolic Voa015 ALBUMIN 4.1 g/dL 06/26/2016 Comp Metabolic Jvu183 TPRO 6.8 g/dL 06/26/2016 Comp Metabolic Lzs199 GLOB 2.7 g/dL 06/26/2016 Comp Metabolic Ugp169 A/G Ratio 1.5 Ratio 06/26/2016 Comp Metabolic Jrz254 Osmo 281 mOsmo 06/26/2016 Culture Urine [id number] URINE CULTURE SEE NOTES 03/11/2016 Culture Urine [id number] Continued Results 03/11/2016 Urine Culture Ucult Complete [...] Ord15 CALCIUM 9.5 mg/dL 01/24/2016 Culture Urine [id number] URINE CULTURE SEE NOTES 12/29/2015 Culture Urine [id number] Continued Results 12/29/2015 Urine Culture Ucult Complete >100,000 col/ml aerobic growth sent to ref lab 12/27/2015 %Hba1C Ylm101 % HbA1c 87457-3 8.3 % 12/26/2015 %Hba1C Nnk730 Gluc Ave 192 mg/dL 12/26/2015 Culture Urine [id number] URINE CULTURE SEE NOTES 10/09/2015 Culture Urine [id number] Continued Results 10/09/2015 Urine Culture Ucult Complete [...] hTSH II 1.24 uIU/mL 09/13/2015 Comp Metabolic Rnd930 NA 137 mEq/L 09/13/2015 Comp Metabolic Qut884 K 4.5 mEq/L 09/13/2015 Comp Metabolic Mbx310 CL 100 mEq/L 09/13/2015 Comp Metabolic Amq326 CO2 28.0 mEq/L 09/13/2015 Comp Metabolic Odu562 ANION GAP 14 09/13/2015 Comp Metabolic Apv102 GLUCOSE 124 mg/dL 09/13/2015 Comp Metabolic Khw745 Creat 0.9 mg/dL 09/13/2015 Comp Metabolic Pkb707 eGFR 65 ml/min/1.73m2 09/13/2015 Comp Metabolic Yet638 BUN 20 mg/dL 09/13/2015 Comp Metabolic Nes038 B/C Ratio 22.7 Ratio 09/13/2015 Comp Metabolic Ccj125 CALCIUM 8.8 mg/dL 09/13/2015 Comp Metabolic Anw448 ALK PHOS 64 U/L 09/13/2015 Comp Metabolic Uou358 AST(SGOT) 16 U/L 09/13/2015 Comp Metabolic Ssq909 ALT(SGPT) 13 U/L 09/13/2015 Comp Metabolic Obs405 BILI T 0.7 mg/dL 09/13/2015 Comp Metabolic Mpq223 ALBUMIN 3.9 g/dL 09/13/2015 Comp Metabolic Vgo539 TPRO 6.7 g/dL 09/13/2015 Comp Metabolic Ahx741 GLOB 2.8 g/dL 09/13/2015 Comp Metabolic Oza679 A/G Ratio 1.4 Ratio 09/13/2015 Comp Metabolic Wgk230 Osmo 278 mOsmo 09/13/2015 Cbc With Differential [...] 93.2 fl 09/13/2015 Cbc With Differential Ord2 MCH 30.1 pg 09/13/2015 Cbc With Differential Ord2 [place]% 6.6 % 09/13/2015 Cbc With Differential Ord2 [...] 1.66 K/ul 09/13/2015 Cbc With Differential Ord2 [place] ABS# 0.4 K/ul 09/13/2015 Cbc With Differential Ord2 Eos ABS# 0.1 K/ul 09/13/2015 Cbc With Differential Ord2 Baso ABS# 0.0 K/ul 09/13/2015 Cbc With Differential Ord2 New Analyzer Notice Please note new ref ranges starting 05-10-2015 due to implemntation of new five part differential hematolgy analyzer. 09/13/2015 %Hba1C Lhf041 % HbA1c 11235-2 9.1 % 09/13/2015 %Hba1C Efm824 Gluc Ave 214 mg/dL 09/13/2015 Urine Culture [...] Urinalysis Ord28 U-Yeast NEGATIVE 09/08/2015 Culture Urine [id number] URINE CULTURE SEE NOTES 03/03/2015 Culture Urine [id number] Continued Results 03/03/2015 Urine Culture Ucult Complete [...] to follow 01/17/2015 Vitamin D 25 Oh Wln1818 VITAMIN D, 25 HYDROXY 48.78 ng/mL Comp Metabolic Yqz143 NA 135 mEq/L 12/13/2014 Comp Metabolic Skn974 K 4.5 mEq/L 12/13/2014 Comp Metabolic Fxu738 CL 101 mEq/L 12/13/2014 Comp Metabolic Hmd068 CO2 28.0 mEq/L 12/13/2014 Comp Metabolic Yyc012 ANION GAP 11 12/13/2014 Comp Metabolic Uwr500 GLUCOSE 90 mg/dL 12/13/2014 Comp Metabolic Laz283 Creat 1.1 mg/dL 12/13/2014 Comp Metabolic Nmu620 eGFR 50 ml/min/1.73m2 12/13/2014 Comp Metabolic Uzk842 BUN 19 mg/dL 12/13/2014 Comp Metabolic Gvy578 B/C Ratio 17.1 Ratio 12/13/2014 Comp Metabolic Yjt793 CALCIUM 9.3 mg/dL 12/13/2014 Comp Metabolic Gpm905 ALK PHOS 74 U/L 12/13/2014 Comp Metabolic Wmx361 AST(SGOT) 16 U/L 12/13/2014 Comp Metabolic Xfu061 ALT(SGPT) 3 U/L 12/13/2014 Comp Metabolic Fkc079 BILI T 0.4 mg/dL 12/13/2014 Comp Metabolic Piy836 ALBUMIN 3.7 g/dL 12/13/2014 Comp Metabolic Wse151 TPRO 6.4 g/dL 12/13/2014 Comp Metabolic Pjr542 GLOB 2.7 g/dL 12/13/2014 Comp Metabolic Dzf361 A/G Ratio 1.4 Ratio 12/13/2014 Comp Metabolic Mph076 Osmo 272 mOsmo 12/13/2014 Tsh Ord6 hTSH [...] Differential Ord2 RDW 15.1 % 12/13/2014 %Hba1C Kaf059 % HbA1c 54617-8 7.2 % 12/13/2014 %Hba1C Cvi733 Gluc Ave 160 mg/dL 12/13/2014 Review of [...] length 09/28/2014 None Full Exam - General 1995 Musculoskeletal gait and station Gait: abnormal stance [...] atraumatic 05/03/2014 None Full Exam - General 1995 Musculoskeletal head and neck Overall: cervical spine benign 05/03/2014 slight buffalo hump Full Exam - General 1994 Integument inspection of skin Overall: few scattered moles, no gross abnormalities 05/03/2014 None Full Exam - General 1994 Neurologic deep tendon reflexes Overall: deep tendon reflexes intact 05/03/2014 None Full Exam - General 1995 Neurologic cranial nerves Overall: crainial nerves 2 [...] dentition 03/31/2014 None Full Exam - General 1995 Ears/Nose/Throat oral cavity/pharynx/larynx Overall: oral mucosa clear [...] Codes Date URINALYSIS NONAUTO W/O SCOPE CPT-4: 05337 12/26/2015 URINALYSIS NONAUTO W/O SCOPE CPT-4: 13852 12/09/2014 URINALYSIS NONAUTO W/O SCOPE CPT-4: 32065 07/12/2014 Vital Signs Date Vital 01/09/2017 Blood Pressure 1: 144/82 Code : 8480-6 BMI: 36.8 Code : 69010-0 Heart Rate 1 : 84 bpm Height: 4'11" SpO2: 95% Weight: 182 lbs 09/27/2016 Blood Pressure 1: 152/74 Code : 8480-6 BMI: 38.1 Code : 07856-2 Heart Rate 1 : 80 bpm Height: 4'11" SpO2: 95% Weight: 188 lbs 8 oz 07/29/2016 Blood Pressure 1: 152/76 Code : 8480-6 BMI: 39.0 Code : 06398-7 Heart Rate 1 : 90 bpm Height: 4'11" SpO2: 97% Weight: 193 lbs 06/28/2016 Blood Pressure 1: 130/74 Code : 8480-6 BMI: 40.6 Code : 94629-9 Heart Rate 1 : 85 bpm Height: 4'11" SpO2: 97% Weight: 201 lbs 03/26/2016 Blood Pressure 1: 130/62 Code : 8480-6 Heart Rate 1: 76 bpm Height: SpO2: 93% Weight: 03/07/2016 Blood Pressure 1: 144/60 Code : 8480-6 BMI: 40.4 Code : 37732-2 Heart Rate 1 : 85 bpm Height: 4'11" SpO2: 95% Weight: 200 lbs 01/24/2016 Blood Pressure 1: 134/50 Code : 8480-6 BMI: 40.4 Code : 96486-2 Heart Rate 1 : 91 bpm Height: 4'11" SpO2: 96% Weight: 200 lbs 01/19/2016 Blood Pressure 1: 158/72 Code : 8480-6 BMI: 40.8 Code : 34926-8 Heart Rate 1 : 82 bpm Height: 4'11" SpO2: 96% Weight: 202 lbs 01/16/2016 Blood Pressure 1: 164/70 Code : 8480-6 BMI: 41.2 Code : 90662-3 Heart Rate 1 : 87 bpm Height: 4'11" SpO2: 94% Weight: 204 lbs 12/26/2015 Blood Pressure 1: 142/70 Code : 8480-6 BMI: 40.4 Code : 09995-7 Heart Rate 1 : 89 bpm Height: 4'11" SpO2: 98% Weight: 200 lbs 10/12/2015 Blood Pressure 1: 140/68 Code : 8480-6 BMI: 39.6 Code : 53826-5 Heart Rate 1 : 81 bpm Height: 4'11" SpO2: 96% Weight: 196 lbs 09/08/2015 Blood Pressure 1: 130/80 Code : 8480-6 BMI: 38.8 Code : 36426-5 Heart Rate 1 : 94 bpm Height: 4'11" SpO2: 95% Weight: 192 lbs 08/21/2015 Blood Pressure 1: 128/82 Code : 8480-6 BMI: 38.4 Code : 65738-9 Heart Rate 1 : 84 bpm Height: 4'11" SpO2: 96% Weight: 190 lbs 02/16/2015 Blood Pressure 1: 138/68 Code : 8480-6 BMI: 37.2 Code : 70699-0 Heart Rate 1 : 81 bpm Height: 4'11" SpO2: 95% Weight: 184 lbs 01/16/2015 Blood Pressure 1: 134/64 Code : 8480-6 BMI: 36.8 Code : 05179-6 Heart Rate 1 : 76 bpm Height: [...] Weight: 172 lbs 05/03/2014 BMI: 36.2 Code: 99284-0 Height: 4'11" Weight: 179 lbs 03/31/2014 Blood Pressure 1: 112/68 Code : 8480-6 BMI: 35.1 Code : 60131-0 Heart Rate 1 : 74 bpm Height: 4'11" Weight: 174 lbs 03/18/2014 Blood Pressure 1: 138/70 Code : 8480-6 BMI: 37.0 Code : 10250-8 Heart Rate 1 : 78 bpm Height: [...] data Encounters Encounter Performer Location Codes Date 40922 EST. PATIENT, LEVEL III Diagnosis: Localized edema[ICD10: R60.0] Diagnosis: Frequency of micturition[ICD10: R35.0] Diagnosis: Urgency of urination[ICD10: R39.15] Tanvi Islas MD, [facility] CPT-4: 66985 01/09/2017 [id number]) 05566 EST. PATIENT, LEVEL IV Diagnosis: Essential (primary) hypertension[ICD10: I10] Diagnosis: Type 2 diabetes mellitus with hyperglycemia[ICD10: E11.65] Diagnosis: Parkinson's disease[ICD10: G20] Diagnosis: Bilateral primary osteoarthritis of hip[ICD10: M16.0] Amee Islas MD, [facility] CPT-4: 13898 09/27/2016 [id number] EST. PATIENT, LEVEL IV Diagnosis: Pain in right toe(s)[ICD10: M79.674] Diagnosis: Localized edema[ICD10: R60.0] Diagnosis: Low back pain[ICD10: M54.5] Tanvi Islas MD, [facility] CPT-4 : 08273 07/29/2016 ([id number]) 75422 EST. PATIENT, LEVEL III Diagnosis: Pain in left hip[ICD10: M25.552] Amee Islas MD, [facility] CPT-4: 03065 06/28/2016 ([id number]) 06226 EST. PATIENT, LEVEL IV Diagnosis: Type 2 diabetes mellitus with hyperglycemia[ICD10: E11.65] Diagnosis: Parkinson's disease[ICD10: G20] Diagnosis: Essential (primary) hypertension[ICD10: I10] Diagnosis: Muscle weakness (generalized)[ICD10: M62.81] Diagnosis: Localized edema[ICD10: R60.0] Celestina Islas MD, [facility] CPT- 4: 68509 03/26/2016 69506 EST. PATIENT, LEVEL III Diagnosis: Dysuria[ICD10: R30.0] Diagnosis: Left upper quadrant pain[ICD10: R10.12] Tanvi Islas MD, [facility] CPT-4: 08268 03/07/2016 53545 EST. PATIENT, LEVEL IV Diagnosis: Encounter for follow-up examination after completed treatment for conditions other than malignant neoplasm[ICD10: Z09] Tanvi Islas MD, [facility] CPT-4: 91696 01/24/2016 ([id number]) Miscellaneous no charge Diagnosis: Localized edema[ICD10: R60.0] Tanvi Islas MD, [facility] CPT-4 : 99720 01/19/2016 [id number] EST. PATIENT, LEVEL IV Diagnosis: Localized edema[ICD10: R60.0] Diagnosis: Other skin changes[ICD10: R23.8] Diagnosis: Low back pain[ICD10: M54.5] Tanvi Islas MD, [facility] CPT-4 : 33119 01/16/2016 ([id number]) 75747 EST. PATIENT, LEVEL IV Diagnosis: Type 2 diabetes mellitus with hyperglycemia[ICD10: E11.65] Diagnosis: Parkinson's disease[ICD10: G20] Diagnosis: Essential (primary) hypertension[ICD10: I10] Diagnosis: Dysuria[ICD10: R30.0] Diagnosis: Low back pain[ICD10: M54.5] Celestina Islas MD, [facility] CPT- 4: 49710 12/26/2015 ([id number]) 77781 EST. PATIENT, LEVEL IV Diagnosis: Type 2 diabetes mellitus with hyperglycemia[ICD10: E11.65] Diagnosis: Parkinson's disease[ICD10: G20] Diagnosis: Essential (primary) hypertension[ICD10: I10] Diagnosis: Bilateral primary osteoarthritis of hip[ICD10: M16.0] Celestina Islas MD, [facility] CPT-4: 73094 10/12/2015 ([id number]) 24133 EST. PATIENT, LEVEL III Diagnosis: Essential (primary) hypertension[ICD10: I10] Diagnosis: Localized edema[ICD10: R60.0] Diagnosis: Unsteadiness on feet[ICD10: R26.81] Diagnosis: Muscle weakness (generalized)[ICD10: M62.81] Diagnosis: Bilateral primary osteoarthritis of hip[ICD10: M16.0] Amee Islas MD, [facility] CPT-4: 53813 09/08/2015 ([id number]) 04488 EST. PATIENT, LEVEL IV Diagnosis: Type 2 diabetes mellitus with hyperglycemia[ICD10: E11.65] Diagnosis: Essential (primary) hypertension[ICD10: I10] Diagnosis: Muscle weakness (generalized)[ICD10: M62.81] Diagnosis: Parkinson's disease[ICD10: G20] Diagnosis: Low back pain[ICD10: M54.5] Amee Islas MD, [facility] CPT-4: 66683 08/21/2015 ([id number]) 85315 EST. PATIENT, LEVEL IV Diagnosis: Parkinson's disease[ICD10: G20] Diagnosis: Essential (primary) hypertension[ICD10: I10] Diagnosis: Type 2 diabetes mellitus with hyperglycemia[ICD10: E11.65] Diagnosis: Pain in unspecified hip[ICD10: M25.559] Celestina Islas MD, [facility] CPT-4: 83527 02/16/2015 ([id number]) 14172 EST. PATIENT, LEVEL IV Diagnosis: Dysuria[ICD9: 788.1] Diagnosis: Parkinson's disease[ICD9: 332.0] Diagnosis: ESSENTIAL HYPERTENSION[ICD9: 401.9] Amee Islas MD, [facility] CPT-4: 52238 01/16/2015 ([id number]) 73499 EST. PATIENT, LEVEL IV Diagnosis: UTI (urinary tract infection)[ICD9: 599.0] Diagnosis: DM W/O COMPLICATION TYPE II, UNCONTROLLED[ICD9: 250.02] Diagnosis: ESSENTIAL HYPERTENSION[ICD9: 401.9] Diagnosis: EDEMA[ICD9: 782.3] Celestina Islas MD, [facility] CPT-4: 73419 12/09/2014 ([id number]) 90441 EST. PATIENT, LEVEL IV Diagnosis: ESSENTIAL HYPERTENSION[ICD9: 401.9] Diagnosis: DIABETES TYPE II[ICD9: 250.00] Diagnosis: Parkinson's disease[ICD9: 332.0] Celestina Islas MD, [facility] CPT-4: 35834 09/28/2014 ([id number]) Patient admitted to the hospital from clinic (NO CHARGE) Diagnosis: Back pain[ICD9: 724.5] Diagnosis: EDEMA[ICD9: 782.3] Diagnosis: MALAISE AND FATIGUE[ICD9: 780.79] Diagnosis: Parkinson's disease[ICD9: 332.0] Diagnosis: ESSENTIAL HYPERTENSION[ICD9: 401.9] Diagnosis: Cellulitis[ICD9: 682.9] Diagnosis: Hip pain[ICD9: 719.45] Celestina Islas MD, [facility] CPT-4: 68210O 07/19/2014 ([id number]) 52912 EST. PATIENT, LEVEL IV Diagnosis: DM W/O COMPLICATION TYPE II, UNCONTROLLED[ICD9: 250.02] Diagnosis: Back pain[ICD9: 724.5] Diagnosis: EDEMA[ICD9: 782.3] Diagnosis: Parkinson's disease[ICD9: 332.0] Celestina Islas MD, [facility] CPT-4: 68484 07/12/2014 ([id number] 31964 EST. PATIENT, LEVEL IV Diagnosis: EDEMA[ICD9: 782.3] Diagnosis: Chronic osteoarthritis[ICD9: 715.90] Diagnosis: Bilateral arm weakness[ICD9: 729.89] Diagnosis: Parkinson's disease[ICD9: 332.0] Diagnosis: Back pain[ICD9: 724.5] Celestina Islas MD, [facility] CPT-4: 30714 05/03/2014 ([id number] 67874 EST. PATIENT, LEVEL IV Diagnosis: DM W/O COMPLICATION TYPE II, UNCONTROLLED[ICD9: 250.02] Diagnosis: ESSENTIAL HYPERTENSION[ICD9: 401.9] Diagnosis: EDEMA[ICD9: 782.3] Diagnosis: MALAISE AND FATIGUE[ICD9: 780.79] Celestina Islas MD, [facility] CPT-4: 12788 03/31/2014 ([id number]) OFFICE/OUTPATIENT VISIT NEW Diagnosis: ESSENTIAL HYPERTENSION[ICD9: 401.9] Diagnosis: DM W/O COMPLICATION TYPE II, UNCONTROLLED[ICD9: 250.02] Diagnosis: OBESITY[ICD9: 278.00] Diagnosis: EDEMA[ICD9: 782.3] Diagnosis: MALAISE AND FATIGUE[ICD9: 780.79] Diagnosis: Restless leg[ICD9: 333.94] Celestina Islas MD, [facility] CPT- 4: 67007 03/18/2014 Plan of Care Planned Activity Notes [...] or concerns. 01/09/2017 [phone] [facility] ([facility] Complex 01/09/2017 Patient Education: Patient [...] of over-medication. 09/27/2016 App[facility]ment[facility] [phone] [phone] [place] (30 min) Complex 09/27/2016 Patient Education: [...] edema. 07/29/2016 App[facility] [phone] [facility] [place] ([facility] min) Complex 07/29/2016 Patient Education: Patient Medication Summary Completed 07/29/2016 Patient Education: Obesity Completed 07/29/2016 Visit Plan: Left hip pain-recent fall-ER f/u-pain improving -no changes in treatment at this time. 06/28/2016 Appointment: Amee Esteves WPtel: [phone] [phone] [place] (30 min) Complex 06/28/2016 Patient [...] with lasix. 03/26/2016 Appointment: Celestina Islas WPtel[facility] (15 min) Moderate 03/26/2016 Patient Education: Patient Medication Summary Completed 03/26/2016 Care Plan: COMPLETE CBC AUTOMATED LOINC : 34984-8 Pending 03/26/2016 Care Plan: MICROALBUMIN QUANTITATIVE LOINC : 77345-7 Pending 03/26/2016 Visit Plan: Left flank pain/UTI - pt with positive urinalysis - culture sent if appropriate. Antibiotic electronically prescribed to pt's pharmacy of choice. Pt to call if symptoms do not improve. 03/07/2016 App[facility]ment: [facility] [phone] [facility] ([facility]) Complex 03/07/2016 Patient Education: Patient [...] edema. 01/24/2016 Appointment: Amee Esteves WPtel: [phone] [facility] [place] [address] (30 min) Complex 01/24/2016 Patient Education: Patient [...] concerns. 01/16/2016 Appointment: Amee Esteves WPtel: [phone] [phone] (30 min) Complex 01/16/2016 Patient Education: [...] treatment. 12/26/2015 [phone] ([facility] min) Moderate 12/26/2015 Patient Education: [...] hydrocodone 10/12/2015 Appointment: [phone] (15 min) Moderate 10/12/2015 Patient Education: [...] kcl 10meq daily x 5 days 09/08/2015 Visit Plan: Hypertension - well controlled [...] kcl 10meq daily x 5 days Gait yykvnbkdbxs-vyvaeigi-YJ of hips-chronic back pain-RX for wheelchair 09/08/2015 Appointment: DanielitoAmee WPtel: [phone] (30 min) Complex 09/08/2015 Patient Education: Patient [...] 08/21/2015 Care Plan: Referral Order SNOMED-CT : [id number] Ordered 02/19/2015 Visit Plan: Parkinson's Disease - [...] - monitor symptoms. Will refer pt to [facility]. Hypertension - well controlled - continue [...] less controlled. 02/16/2015 Appointment: Celestina Islas WPtel: [address] [place], [place] [id number] (15 min) Moderate 02/16/2015 Patient Education: Patient [...] Care Plan: COMPLETE CBC AUTOMATED LOINC : 19662-3 Ordered 12/09/2014 Visit Plan: Hypertension - well [...] glucose control. 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 dm - resume home medications htn - resume home medications. 07/19/2014 [phone] [facility] 07/19/2014 Patient Education: Patient Medication Summary Completed [...] report. 07/12/2014 Appointment: Celestina Islas WPtel: [phone] [facility] Follow up 07/12/2014 Patient Education: Patient Medication [...] chair. 05/03/2014 App[facility]ment[phone] [place] Follow up 05/03/2014 Patient Education: [...] edema. 03/31/2014 Appointment: Celestina Islas WPtel: [phone] [facility] Follow up 03/31/2014 Patient Education: Patient [...] and friday03/18/2014 Appointment: [phone] [facility] [facility] 03/18/2014 Patient Education: Patient Medication Summary Completed 03/18/2014 Patient Education: Hypertension Completed 03/18/2014 Referral: External, Ordering Provider Referral Appointment Requested Instructions Comment stop simvastatin stop hctz decrease actos to [...] the potassium friday, friday and friday . Edema - pt has been advised [...] or with any changes, questions, or concerns. Wheelchair DX weakness, gait instability Increase duragesic [...] back pain-increase duragesic patch to 25mcg/hr patch 2 grams or less of sodium - [...] as pt needs a lift chair. . Hypertension - well controlled - continue [...] to allow for greater blood glucose control. CHECK UA WITH C&S IF INDICATED . [...] if symptoms worsen. Dysuria-history of UTI-check UA start on GABAPENTIN - (neurontin) - one [...] disease - stable -per patient report. . Edema - pt has been advised to elevate legs to prevent dependent edema, compression has been recommended to help to naturally decrease peripheral edema. Diuretic use has been discussed and pt has been instructed in appropriate use of such medication as necessary to further attempt to reduce peripheral edema. . Hypertension - well controlled - continue [...] and understands the consequences of over-medication. . Low back pain- the patient was [...] pustular drainage, or any other acute concerns. start on mirapex 0.25mg by mouth at [...] - monitor symptoms. Will refer pt to [facility]. Hypertension - well controlled - continue [...] are starting to become less controlled. . Diabetes Mellitus - controlled - per [...] current medications - no change in treatment. BACTRIM DS 1 PO BID X 7 [...] further attempt to reduce peripheral edema. . ADMIT FROM CLINIC TO HOSPITAL - [...] lumbar spine, and pelvis - started fentanyl teller vault. dm - resume home medications htn - resume home medications. . Diabetes Mellitus - controlled - per [...] Hip pain/OA - continue with prn hydrocodone Wheelchair DX weakness, gait instability Increase duragesic [...] pain-increase duragesic patch to 25mcg/hr patch . Left flank pain/UTI - pt with positive urinalysis - culture sent if appropriate. Antibiotic electronically prescribed to pt's pharmacy of choice. Pt to call if symptoms do not improve. . Hypertension - well controlled - continue [...] with kcl 10meq daily x 5 days . Hypertension - well controlled - continue [...] kcl 10meq daily x 5 days Gait ogyqekqgmfx-uhulagxo-NN of hips-chronic back pain-RX for wheelchair . continue orders - notify clinic if symptoms do not improve or with any concerns. . Diabetes Mellitus - controlled - per [...] monitor symptoms - continue with lasix. . Diabetes Mellitus - Uncontrolled - per [...] further attempt to reduce peripheral edema. . Low back pain- the patient was [...] further attempt to reduce peripheral edema. . Left hip pain-recent fall-ER f/u-pain improving-no changes in treatment at this time.
--- OUTSIDE RECORDS SUMMARY | 2017-07-29 19:55 | XMS REPORT | CCD ---
Author Celestina Juares Organization [facility] Address [facility] [place] [address] Phone Care Team Providers Care Heat Reader Name Role Phone PP Unavailable CCM Unavailable Summary Purpose Interface Exchange Insurance Providers Payer name Policy type / Coverage type Covered alliance party ID Effective Begin Date Effective End Date WPS Medicare Part B Medicare Part B [id number] Unknown Unknown FOR LIFE WPS Medicare Part B [id number] Unknown Unknown Family history Mother Diagnosis Age At Onset No Family Disease Entered N/A Social History Social History Element Codes Description Effective Dates Living arrangements Unknown Assisted Living VCV 11/08/2015 Education level Unknown College Graduate 10/12/2015 Marital status Unknown 03/18/2014 Number of children Unknown 5 03/18/[address]: 588583944 Never smoker 03/18/[address]: 073203860 Never drinks alcohol 03/18/2014 Allergies, Adverse Reactions, [...] Fill Instructions senna 8.6 mg tablet RxNorm: 557765 Tablet(s) TAKE 2 TABLETS BY MOUTH DAILY 05/26/2017 12/21/2017 Active Generic For:SENOKOT TABLET 10/03/2016 9:56:42 AM 10/03 9:56:41 AM Ocuvite with Lutein 1,000 unit-200 mg-60 unit-2mg tablet RxNorm: 1 Tablet(s) PO daily 05/26/2017 12/21/2017 Active Duragesic 12 mcg/hr transdermal patch RxNorm: 983204 1 Patch TD Q72H 05/23/2017 06/21/2017 Active Aleve 220 mg tablet RxNorm: 165262 Tablet(s) TAKE ONE TABLET BY MOUTH TWICE DAILY 05/12/2017 09/08/2017 Active 05/13/2016 8:39:57 AM Lantus 100 unit/mL subcutaneous solution RxNorm: 928363 INJECT 30 UNITS SUBCUTANEOUSLY DAILY 05/05/20172018 Active 05/05/2017 11:15:06 AM Augmentin 500 mg-125 mg tablet RxNorm: 081618 1 Tablet(s) PO TID 05/02/2017 05/01/2017 Inactive Augmentin 500 mg-125 mg tablet RxNorm: 509512 1 Tablet(s) PO TID 05/02/2017 05/08/2017 Inactive Vesicare 5 mg tablet RxNorm: 897861 1 Tablet(s) PO daily 201608/21/2017 Active gabapentin 100 mg capsule RxNorm: 787976 TAKE 1 CAPSULE BY MOUTH DAILY 04/24/2017 10/20/2017 Active Generic For:NEURONTIN 100 MG CAPSULE 04/24/2017 12:21:48 PM Duragesic 25 mcg/hr transdermal patch RxNorm: 225066 1 Patch TD Q72H 04/22/2017 05/21/2017 Inactive Duragesic 12 mcg/hr transdermal patch RxNorm: 501200 1 Patch TD Q72H 04/22/2017 05/21/2017 Inactive capsaicin 0.025 % topical cream RxNorm: 161880 APPLY TOPICALLY FOUR TIMES DAILY 04/10/2017 07/26/2017 Active 04/10/2017 11:05:24 AM N O T I C E Last quantity doesn't match original quantity Duragesic 12 mcg/hr transdermal patch RxNorm: 097664 1 Patch TD Q72H 03/24/2017 04/21/2017 Inactive Duragesic 25 mcg/hr transdermal patch RxNorm: 681103 1 Patch TD Q72H 03/24/2017 04/21/2017 Inactive Duragesic 12 mcg/hr transdermal patch RxNorm: 517872 1 Patch TD Q72H 02/20/2017 03/21/2017 Inactive Voltaren 1 % topical gel RxNorm: 852017 APPLY 4 GRAMS TO LOWER BACK/HIPS FOUR TIMES DAILY 02/13/2017 03/26/2017 Inactive Generic For:VOLTAREN GEL 1% 02/12/2017 9:20:40 AM Vesicare 5 mg tablet RxNorm: 963456 1 Tablet(s) PO daily 201605/04/2017 Inactive Vesicare 5 mg tablet RxNorm: 837210 1 Tablet(s) PO daily 201602/04/2017 Inactive Cozaar 50 mg tablet RxNorm: 755518 TAKE 1 TABLET BY MOUTH DAILY 01/31/2017 07/29/2017 Active Generic For:*COZAAR 50 MG TABLET 01/30/2017 3:58:13 PM Namenda 10 mg tablet RxNorm: 172216 TAKE 1 TABLET BY MOUTH TWICE DAILY 01/31/2017 06/29/2017 Active Generic For:NAMENDA 10MG TAB 01/30/2017 3:57:01 PM gabapentin 300 mg capsule RxNorm: 245745 TAKE 1 CAPSULE(S) BY MOUTH TWICE DAILY 01/31/2017 06/29/2017 Active Generic For:NEURONTIN 300 MG CAPSULE 01/30/2017 3:59: 00 PM trazodone 50 mg tablet RxNorm: 499904 TAKE 1 TABLET BY MOUTH DAILY 01/31/2017 07/29/2017 Active Generic For:DESYREL 50 MG TABLET 01/30/2017 3:57:33 PM Duragesic 12 mcg/hr transdermal patch RxNorm: 725946 1 Patch TD Q72H 01/23/2017 02/19/2017 Inactive Duragesic 25 mcg/hr transdermal patch RxNorm: 505614 1 Patch TD Q72H 01/21/2017 02/19/2017 Inactive Keflex 500 mg capsule RxNorm: 601024 1 Capsule(s) PO TID 201601/09/2017 Inactive Keflex 500 mg capsule RxNorm: 290140 1 Capsule(s) PO TID 201601/19/2017 Inactive Duragesic 12 mcg/hr transdermal patch RxNorm: 281946 1 Patch TD Q72H 12/27/2016 01/22/2017 Inactive Duragesic 25 mcg/hr transdermal patch RxNorm: 709001 1 Patch TD Q72H 12/03/2016 01/01/2017 Inactive Duragesic 12 mcg/hr transdermal patch RxNorm: 392748 1 Patch TD Q72H 11/21/2016 12/20/2016 Inactive Voltaren 1 % topical gel RxNorm: 282527 APPLY 4 GRAMS TO LOWER BACK/HIPS FOUR TIMES DAILY 11/14/2016 12/25/2016 Inactive Generic For:VOLTAREN GEL 1% 11/14/2016 11:44:09 AM capsaicin 0.025 % topical cream RxNorm: 951438 1 Application TOP QID 11/11/2016 04/09/2017 Inactive Lantus 100 unit/mL subcutaneous solution RxNorm: 314495 30 Unit(s) SQ daily 11/11/2016 05/04/2017 Inactive Ocuvite with Lutein 1,000 unit-200 mg-60 unit-2mg tablet RxNorm: 1 Tablet(s) PO daily 11/08/2016 05/25/2017 Inactive gabapentin 100 mg capsule RxNorm: 798057 TAKE 1 CAPSULE BY MOUTH DAILY 11/08/2016 04/23/2017 Inactive Generic For:NEURONTIN 100 MG CAPSULE 11/08/2016 9:16:54 AM N O T I C E Last quantity doesn't match original quantity Duragesic 25 mcg/hr transdermal patch RxNorm: 958027 1 Patch TD Q72H 11/04/2016 12/02/2016 Inactive Duragesic 12 mcg/hr transdermal patch RxNorm: 766517 1 Patch TD Q72H 10/21/2016 11/19/2016 Inactive Duragesic 25 mcg/hr transdermal patch RxNorm: 745863 1 Patch TD Q72H 10/10/2016 11/03/2016 Inactive senna 8.6 mg tablet RxNorm: 467725 Tablet(s) TAKE 2 TABLETS BY MOUTH DAILY 10/08/2016 05/05/2017 Inactive Generic For:SENOKOT TABLET 10/03/2016 9:56:42 AM 9:56:41 AM senna 8.6 mg tablet RxNorm: 631035 TAKE 2 TABLETS BY MOUTH DAILY 10/03/2016 10/07/2016 Inactive Generic For:SENOKOT TABLET 10/03/2016 9:56:42 AM 10/03/2016 9:56: 41 AM Duragesic 12 mcg/hr transdermal patch RxNorm: 683377 1 Patch TD Q72H 09/25/2016 10/20/2016 Inactive mecobalamin (vitamin B12) 5,000 mcg disintegrating tablet RxNorm: 5800282 1 Tablet (s) PO daily 09/13/2016 08/08/2017 Active gabapentin 300 mg capsule RxNorm: 616508 1 Capsule(s) PO BID 01/30/2017 Inactive Namenda 10 mg tablet RxNorm: 124476 TAKE 1 TABLET BY MOUTH TWICE DAILY 09/13/2016 01/30/2017 Inactive Generic For:NAMENDA 10MG TAB 09/13/2016 2:21:26 PM N O T I C E Last quantity doesn't match original quantity trazodone 50 mg tablet RxNorm: 888715 TAKE 1 TABLET BY MOUTH DAILY 09/13/2016 01/30/2017 Inactive Generic For:DESYREL 50 MG TABLET 09/13/2016 2:21:21 PM N O T I C E Last quantity doesn't match original quantity Cozaar 50 mg tablet RxNorm: 787029 TAKE 1 TABLET BY MOUTH DAILY 09/13/2016 01/30/2017 Inactive Generic For:*COZAAR 50 MG TABLET 09/13/2016 2:21:15 PM N O T I C E Last quantity doesn't match original quantity Duragesic 25 mcg/hr transdermal patch RxNorm: 270369 1 Patch TD Q72H 09/09/2016 10/08/2016 Inactive Voltaren 1 % topical gel RxNorm: 224223 4 Gram(s) TOP to lower back/hips QID 09/02/2016 11/13/2016 Inactive Duragesic 12 mcg/hr transdermal patch RxNorm: 297172 1 Patch TD Q72H 08/21/2016 09/19/2016 Inactive Myrbetriq 50 mg tablet,extended release RxNorm: 3596361 TAKE 1 TABLET BY MOUTH DAILY 08/15/2016 03/12/2017 Inactive 08/15/2016 1:38:02 PM N O T I C E Last quantity doesn't match original quantity gabapentin 100 mg capsule RxNorm: 891827 TAKE 1 CAPSULE BY MOUTH DAILY 08/15/2016 11/07/2016 Inactive Generic For:NEURONTIN 100 MG CAPSULE 08/15/2016 1:37:55 PM N O T I C E Last quantity doesn't match original quantity hydrocodone 5 mg-acetaminophen 325 mg tablet RxNorm: 287429 1 Tablet(s) PO Q4H as needed 08/08/2016 09/06/2016 Inactive Keflex 500 mg capsule RxNorm: 396670 1 Capsule(s) PO TID 201608/04/2016 Inactive Duragesic 12 mcg/hr transdermal patch RxNorm: 180207 1 Patch TD Q72H 07/24/2016 08/20/2016 Inactive Mirapex 1 mg tablet RxNorm: 905065 TAKE 1 TABLET BY MOUTH THREE TIMES DAILY 07/17/2016 10/14/2016 Inactive Generic For:MIRAPEX 1MG TAB BOE 07/17/2016 10:01: 58 AM carbidopa 25 mg-levodopa 100 mg tablet RxNorm: 227248 TAKE 2 TABLETS BY MOUTH FOUR TIMES DAILY 07/17/2016 10/14/2016 Inactive Generic For:SINEMET-25/100 TABLET 07/17/2016 10:02:12 AM Duragesic 25 mcg/hr transdermal patch RxNorm: 611249 1 Patch TD q72 hours 07/15/2016 08/13/2016 Inactive Voltaren 1 % topical gel RxNorm: 328911 4 Gram(s) TOP to lower back/hips QID 07/11/2016 09/01/2016 Inactive capsaicin 0.025 % topical cream RxNorm: 518986 1 Application TOP QID 07/05/2016 11/10/2016 Inactive Refresh Tears 0.5 % eye drops RxNorm: 7304957 1 Drop(s) OPH daily as needed for dry eyes 06/28/2016 No Stop Date Active Duragesic 12 mcg/hr transdermal patch RxNorm: 714434 1 TD q72 hours 06/27/2016 07/23/2016 Inactive Vitamin D2 50,000 unit capsule RxNorm: 447235 TAKE 1 CAPSULE BY MOUTH WEEKLY 06/21/2016 07/18/2016 Inactive Generic For:DRISDOL 15445 UNITS CAP 06/18/2016 4:31: 30 PM Mirapex 1 mg tablet RxNorm: 879634 TAKE 1 TABLET BY MOUTH THREE TIMES DAILY 06/19/2016 07/16/2016 Inactive Generic For:MIRAPEX 1MG TAB [facility] 06/18/2016 4:32: 01 PM N O T I C E Last quantity doesn't match original quantity Cozaar 50 mg tablet RxNorm: 172303 TAKE 1 TABLET BY MOUTH DAILY 06/19/2016 09/12/2016 Inactive Generic For:*COZAAR 50 MG TABLET N O T I C E Last quantity doesn't match original quantity carbidopa 25 mg-levodopa 100 mg tablet RxNorm: 709712 TAKE 2 TABLETS BY MOUTH FOUR TIMES DAILY 06/19/2016 07/16/2016 Inactive Generic For:SINEMET-25/100 TABLET N O T I C E Last quantity doesn't match original quantity Namenda 10 mg tablet RxNorm: 822181 TAKE 1 TABLET BY MOUTH TWICE DAILY 06/19/2016 09/12/2016 Inactive Generic For:NAMENDA 10MG TAB 06/18/2016 4:32:09 PM N O T I C E Last quantity doesn't match original quantity trazodone 50 mg tablet RxNorm: 492001 TAKE 1 TABLET BY MOUTH DAILY 06/19/2016 09/12/2016 Inactive Generic For:DESYREL 50 MG TABLET N O T I C E Last quantity doesn't match original quantity Duragesic 25 mcg/hr transdermal patch RxNorm: 669090 1 Patch TD q72 hours 06/12/2016 07/11/2016 Inactive Aleve 220 mg tablet RxNorm: 660887 Tablet(s) TAKE ONE TABLET BY MOUTH TWICE DAILY 05/27/2016 09/23/2016 Inactive 05/13/2016 8:39:57 AM Duragesic 12 mcg/hr transdermal patch RxNorm: 443394 1 TD q72 hours 05/27/2016 06/25/2016 Inactive gabapentin 300 mg capsule RxNorm: 012341 1 Capsule(s) PO BID 05/23/2016 Inactive Lantus 100 unit/mL subcutaneous solution RxNorm: 827310 30 Unit(s) SQ daily 05/24/2016 05/23/2016 Inactive gabapentin 300 mg capsule RxNorm: 166329 1 Capsule(s) PO BID 09/12/2016 Inactive Lantus 100 unit/mL subcutaneous solution RxNorm: 930579 30 Unit(s) SQ daily 05/24/2016 11/10/2016 Inactive carbidopa 25 mg-levodopa 100 mg tablet RxNorm: 932842 TAKE 2 TABLETS BY MOUTH FOUR TIMES DAILY 05/22/2016 06/18/2016 Inactive Generic For:SINEMET-25/100 TABLET 05/22/2016 9:39:54 AM Namenda 10 mg tablet RxNorm: 397430 TAKE 1 TABLET BY MOUTH TWICE DAILY 05/22/2016 06/18/2016 Inactive Generic For:NAMENDA 10MG TAB 05/22/2016 9:39:26 AM mecobalamin (vitamin B12) 5,000 mcg disintegrating tablet RxNorm: 3547713 1 Tablet (s) PO daily 05/22/2016 09/12/2016 Inactive Cozaar 50 mg tablet RxNorm: 954321 TAKE 1 TABLET BY MOUTH DAILY 05/22/2016 06/18/2016 Inactive Generic For:*COZAAR 50 MG TABLET 05/22/2016 9:39:36 AM Mirapex 1 mg tablet RxNorm: 187316 TAKE 1 TABLET BY MOUTH THREE TIMES DAILY 05/22/2016 06/18/2016 Inactive Generic For:MIRAPEX 1MG TAB [facility] 05/22/2016 9:39: 17 AM trazodone 50 mg tablet RxNorm: 148236 TAKE 1 TABLET BY MOUTH DAILY 05/22/2016 06/18/2016 Inactive Generic For:DESYREL 50 MG TABLET 05/22/2016 9:39:07 AM Ocuvite with Lutein 1,000 unit-200 mg-60 unit-2mg tablet RxNorm: 1 Tablet(s) PO daily 05/21/2016 05/20/2016 Inactive gabapentin 100 mg capsule RxNorm: 047025 TAKE 1 CAPSULE BY MOUTH DAILY 05/21/2016 08/14/2016 Inactive Generic For:NEURONTIN 100 MG CAPSULE 05/21/2016 2:57:16 PM Myrbetriq 50 mg tablet,extended release RxNorm: 0824170 TAKE 1 TABLET BY MOUTH DAILY 05/21/2016 08/15/2016 Inactive 05/21/2016 2:59:11 PM Ocuvite with Lutein 1,000 unit-200 mg-60 unit-2mg tablet RxNorm: 1 Tablet(s) PO daily 05/21/2016 11/07/2016 Inactive Aleve 220 mg tablet RxNorm: 685720 TAKE ONE TABLET BY MOUTH TWICE DAILY 05/14/2016 05/26/2016 Inactive 05/13/2016 8:39:57 AM Duragesic 25 mcg/hr transdermal patch RxNorm: 185851 1 Patch TD q72 hours 05/14/2016 06/11/2016 Inactive Duragesic 12 mcg/hr transdermal patch RxNorm: 785248 1 TD q72 hours 04/24/2016 05/23/2016 Inactive capsaicin 0.025 % topical cream RxNorm: 959695 1 Application TOP QID 04/16/2016 07/04/2016 Inactive Duragesic 12 mcg/hr transdermal patch RxNorm: 722128 1 TD q72 hours 04/10/2016 04/23/2016 Inactive Duragesic 25 mcg/hr transdermal patch RxNorm: 516195 1 TD q72 hours 04/10/2016 05/09/2016 Inactive Cipro 500 mg tablet RxNorm: 919008 1 Tablet(s) PO BID 201504/13/2016 Inactive hydrocodone 5 mg-acetaminophen 325 mg tablet RxNorm: 206717 1 Tablet(s) PO Q4H as needed 03/20/2016 04/18/2016 Inactive Duragesic 12 mcg/hr transdermal patch RxNorm: 235713 1 TD q72 hours 03/20/2016 04/09/2016 Inactive Duragesic 25 mcg/hr transdermal patch RxNorm: 011556 1 TD q72 hours 03/15/2016 04/09/2016 Inactive hydrocodone 5 mg-acetaminophen 325 mg tablet RxNorm: 721003 1 Tablet(s) PO Q4H as needed 03/08/2016 03/19/2016 Inactive Cipro 500 mg tablet RxNorm: 149695 1 Tablet(s) PO BID 201503/06/2016 Inactive Cipro 500 mg tablet RxNorm: 420648 1 Tablet(s) PO BID 201503/13/2016 Inactive Duragesic 12 mcg/hr transdermal patch RxNorm: 074996 1 TD q72 hours 02/27/2016 03/19/2016 Inactive Duragesic 12 mcg/hr transdermal patch RxNorm: 429048 1 TD q72 hours 01/29/2016 02/26/2016 Inactive [SAVINGS FOR NON-COVERED DRUGS -- BIN:[id number], PCN: ASPROD1, Group : XXXXX, ID# [id number], Questions: . THIS IS NOT INSURANCE.] Lasix 20 mg tablet RxNorm: 911934 2 Tablet(s) PO daily 201501/28/2016 Inactive potassium chloride ER 10 mEq tablet,extended release RxNorm: 657256 2 Tablet(s) PO daily to take while taking the lasix 01/24/2016 01/28/2016 Inactive Duragesic 25 mcg/hr transdermal patch RxNorm: 529210 1 TD q72 hours 01/16/2016 02/14/2016 Inactive Duragesic 25 mcg/hr transdermal patch RxNorm: 831835 1 TD q72 hours APPLY WITH DURAGESIC 12MCG 1 Q 72 01/03/20162015 Inactive [SAVINGS FOR NON-COVERED DRUGS -- BIN:573760, PCN: ASPROD1, Group: XXXXX, ID# [id number], Questions: [phone]. THIS IS NOT INSURANCE.] hydrocodone 5 mg-acetaminophen 325 mg tablet RxNorm: 576935 1 Tablet(s) PO Q4H as needed 01/02/2016 03/07/2016 Inactive [SAVINGS FOR NON-COVERED DRUGS -- BIN:466833 , PCN: ASPROD1, Group: XXXXX, ID# XXXXXXX, Questions: . THIS IS NOT INSURANCE.] Myrbetriq 50 mg tablet,extended release RxNorm: 0425327 1 Tablet(s) PO daily 12/28/2015 04/25/2016 Inactive PA approved Duragesic 25 mcg/hr transdermal patch RxNorm: 696819 1 TD q72 hours 12/18/2015 01/02/2016 Inactive [SAVINGS FOR NON-COVERED DRUGS -- BIN:903964, PCN: ASPROD1, Group : XXXXX, ID# [id number], Questions: . THIS IS NOT INSURANCE.] Duragesic 25 mcg/hr transdermal patch RxNorm: 249165 1 TD q72 hours 11/17/2015 12/17/2015 Inactive [SAVINGS FOR NON-COVERED DRUGS -- BIN:706307, PCN: ASPROD1, Group : XXXXX, ID# [id number], Questions: . THIS IS NOT INSURANCE.] Myrbetriq 50 mg tablet,extended release RxNorm: 0582179 1 Tablet(s) PO daily 10/31/2015 12/27/2015 Inactive increase dose Myrbetriq 25 mg tablet,extended release RxNorm: 0884525 1 Tablet(s) PO daily 10/24/2015 10/30/2015 Inactive send PA form if required Myrbetriq 25 mg tablet,extended release RxNorm: 7409906 1 Tablet(s) PO daily 10/24/2015 10/23/2015 Inactive send PA form if required Duragesic 25 mcg/hr transdermal patch RxNorm: 705694 1 TD q72 hours 10/18/2015 11/16/2015 Inactive [SAVINGS FOR NON-COVERED DRUGS -- BIN:711256, PCN: ASPROD1, Group : XXXXX, ID# XXXXXXX, Questions: . THIS IS NOT INSURANCE.] Namenda 10 mg tablet RxNorm: 022495 1 Tablet(s) PO BID 201505/21/2016 Inactive Lantus Solostar 100 unit/mL (3 mL) subcutaneous insulin pen RxNorm: 565283 30 Unit(s) SQ daily (may be adjusted for further glucose control) 10/12/2015 05/23/2016 Inactive [SAVINGS FOR UNINSURED PATIENTS -- BIN:272455, PCN: ASPROD1, Group: AME08, ID# [id number], Process claim through [employer], for questions: [phone]. THIS IS NOT INSURANCE.] Mirapex 1 mg tablet RxNorm: 168648 1 Tablet(s) PO TID 201505/21/2016 Inactive Duragesic 25 mcg/hr transdermal patch RxNorm: 534490 1 TD q72 hours 09/18/2015 10/17/2015 Inactive [SAVINGS FOR NON-COVERED DRUGS -- BIN:415316, PCN: ASPROD1, Group : XXXXX, ID# XXXXXXX, Questions: . THIS IS NOT INSURANCE.] Sinemet CR 50 mg-200 mg tablet,extended release RxNorm: 536309 2 Tablet(s) PO QID 08/21/2015 10/12/2015 Inactive Duragesic 25 mcg/hr transdermal patch RxNorm: 798512 1 TD q72 hours 08/21/2015 09/17/2015 Inactive [SAVINGS FOR NON-COVERED DRUGS -- BIN:440792, PCN: ASPROD1, Group : XXXXX, ID# XXXXXXX, Questions: . THIS IS NOT INSURANCE.] Namenda XR 7 mg-14 mg-21 mg-28 mg capsule,sprinkle,ER 24hr, dose pack RxNorm: 556784 Capsule(s) PO 08/21/2015 08/21/2015 Inactive gabapentin 100 mg capsule RxNorm: 202986 1 Capsule(s) PO once daily at noon and 300mg BID 08/21/2015 05/20/2016 Inactive [SAVINGS FOR NON-COVERED DRUGS -- BIN: 187440, PCN: ASPROD1, Group: XXXXX, ID# [email or web address], Questions: . THIS IS NOT INSURANCE.] Mirapex 1 mg tablet RxNorm: 993725 1 Tablet(s) PO QPM 201509/19/2015 Inactive Lantus Solostar 100 unit/mL (3 mL) subcutaneous insulin pen RxNorm: 555986 25 Unit(s) SQ daily (may be adjusted for further glucose control) 08/21/2015 10/11/2015 Inactive [SAVINGS FOR UNINSURED PATIENTS -- BIN:748088, PCN: ASPROD1, Group: AME08, ID# [id number], Process claim through [employer], for questions: [phone]. THIS IS NOT INSURANCE.] Duragesic 12 mcg/hr transdermal patch RxNorm: 874944 1 TD q72 hours 08/04/2015 08/20/2015 Inactive [SAVINGS FOR NON-COVERED DRUGS -- BIN:187124, PCN: ASPROD1, Group : XXXXX, ID# XXXXXXX, Questions: . THIS IS NOT INSURANCE.] Augmentin 500 mg-125 mg tablet RxNorm: 981261 1 Tablet(s) PO TID 07/27/2015 07/26/2015 Inactive Augmentin 500 mg-125 mg tablet RxNorm: 866382 1 Tablet(s) PO TID 07/27/2015 08/02/2015 Inactive Cipro 500 mg tablet RxNorm: 568281 1 Tablet(s) PO BID 201507/06/2015 Inactive Cipro 500 mg tablet RxNorm: 757026 1 Tablet(s) PO BID 201510/11/2015 Inactive Duragesic 12 mcg/hr transdermal patch RxNorm: 273403 1 TD q72 hours 07/04/2015 08/03/2015 Inactive [SAVINGS FOR NON-COVERED DRUGS -- BIN:007494, PCN: ASPROD1, Group : XXXXX, ID# XXXXXXX, Questions: . THIS IS NOT INSURANCE.] hydrocodone 5 mg-acetaminophen 325 mg tablet RxNorm: 963915 1 Tablet(s) PO Q4H as needed 07/03/2015 01/01/2016 Inactive [SAVINGS FOR NON-COVERED DRUGS -- BIN:049537 , PCN: ASPROD1, Group: XXXXX, ID# XXXXXXX, Questions: . THIS IS NOT INSURANCE.] Duragesic 12 mcg/hr transdermal patch RxNorm: 407494 1 TD q72 hours 06/05/2015 07/03/2015 Inactive [SAVINGS FOR NON-COVERED DRUGS -- BIN:843968, PCN: ASPROD1, Group : XXXXX, ID# XXXXXXX, Questions: . THIS IS NOT INSURANCE.] Duragesic 12 mcg/hr transdermal patch RxNorm: 750483 1 TD q72 hours 05/09/2015 06/04/2015 Inactive [SAVINGS FOR NON-COVERED DRUGS -- BIN:257891, PCN: ASPROD1, Group : XXXXX, ID# XXXXXXX, Questions: . THIS IS NOT INSURANCE.] hydrocodone 5 mg-acetaminophen 325 mg tablet RxNorm: 068445 1 Tablet(s) PO Q4H as needed 04/27/2015 07/02/2015 Inactive [SAVINGS FOR NON-COVERED DRUGS -- BIN:308568 , PCN: ASPROD1, Group: XXXXX, ID# [id number], Questions: . THIS IS NOT INSURANCE.] Duragesic 12 mcg/hr transdermal patch RxNorm: 194789 1 TD q72 hours 04/06/2015 05/08/2015 Inactive [SAVINGS FOR NON-COVERED DRUGS -- BIN:368498, PCN: ASPROD1, Group : XXXXX, ID# XXXXXXX, Questions: . THIS IS NOT INSURANCE.] Duragesic 12 mcg/hr transdermal patch RxNorm: 521000 1 TD q72 hours 03/07/2015 04/05/2015 Inactive [SAVINGS FOR NON-COVERED DRUGS -- BIN:952033, PCN: ASPROD1, Group : XXXXX, ID# XXXXXXX, Questions: . THIS IS NOT INSURANCE.] hydrocodone 5 mg-acetaminophen 325 mg tablet RxNorm: 337410 1 Tablet(s) PO Q4H as needed 02/16/2015 04/26/2015 Inactive [SAVINGS FOR NON-COVERED DRUGS -- BIN:998891 , PCN: ASPROD1, Group: XXXXX, ID# XXXXXXX, Questions: . THIS IS NOT INSURANCE.] Mirapex 0.25 mg tablet RxNorm: 696032 1 Tablet(s) PO QPM 201403/17/2015 Inactive Duragesic 12 mcg/hr transdermal patch RxNorm: 109322 1 TD q72 hours 01/31/2015 03/06/2015 Inactive [SAVINGS FOR NON-COVERED DRUGS -- BIN:380720, PCN: ASPROD1, Group : XXXXX, ID# XXXXXXX, Questions: . THIS IS NOT INSURANCE.] Duragesic 12 mcg/hr transdermal patch RxNorm: 337070 1 TD q72 hours 01/03/2015 01/30/2015 Inactive [SAVINGS FOR NON-COVERED DRUGS -- BIN:826619, PCN: ASPROD1, Group : XXXXX, ID# XXXXXXX, Questions: . THIS IS NOT INSURANCE.] hydrocodone 5 mg-acetaminophen 325 mg tablet RxNorm: 461909 1 Tablet(s) PO Q4H as needed 12/21/2014 02/15/2015 Inactive [SAVINGS FOR NON-COVERED DRUGS -- BIN:229374 , PCN: ASPROD1, Group: XXXXX, ID# XXXXXXX, Questions: . THIS IS NOT INSURANCE.] Duragesic 12 mcg/hr transdermal patch RxNorm: 390522 1 TD q72 hours 12/14/2014 01/02/2015 Inactive [SAVINGS FOR NON-COVERED DRUGS -- BIN:502753, PCN: ASPROD1, Group : XXXXX, ID# XXXXXXX, Questions: . THIS IS NOT INSURANCE.] Duragesic 12 mcg/hr transdermal patch RxNorm: 358496 1 TD q72 hours 11/07/2014 12/13/2014 Inactive [SAVINGS FOR NON-COVERED DRUGS -- BIN:124009, PCN: ASPROD1, Group : XXXXX, ID# [id number], Questions: . THIS IS NOT INSURANCE.] Vitamin D2 50,000 unit capsule RxNorm: 833395 TAKE 1 CAPSULE WEEKLY (AFTER FINISHED WITH VIT D 17267T FOR THE 12 WEEKS, START OTC VITAMIN D 2000 UNITS DAILY) 10/24/2014 06/20/2016 Inactive Duragesic 12 mcg/hr transdermal patch RxNorm: 098921 1 TD q72 hours 10/11/2014 11/06/2014 Inactive [SAVINGS FOR NON-COVERED DRUGS -- BIN:070867, PCN: ASPROD1, Group : XXXXX, ID# XXXXXXX, Questions: . THIS IS NOT INSURANCE.] Sinemet CR 50 mg-200 mg tablet,extended release RxNorm: 752791 1 Tablet(s) PO BID 10/05/2014 05/02/2015 Inactive Lantus Solostar 100 unit/mL (3 mL) subcutaneous insulin pen RxNorm: 723714 15 Unit(s) SQ daily (may be adjusted for further glucose control) 09/28/2014 08/20/2015 Inactive [SAVINGS FOR UNINSURED PATIENTS -- BIN:142567, PCN: ASPROD1, Group: AME08, ID# [id number], Process claim through [employer], for questions: [phone]. THIS IS NOT INSURANCE.] Duragesic 12 mcg/hr transdermal patch RxNorm: 475793 1 TD q72 hours 09/26/2014 10/10/2014 Inactive [SAVINGS FOR NON-COVERED DRUGS -- BIN:732886, PCN: ASPROD1, Group : XXXXX, ID# XXXXXXX, Questions: . THIS IS NOT INSURANCE.] hydrocodone 5 mg-acetaminophen 325 mg tablet RxNorm: 641241 1 Tablet(s) PO Q4H as needed 09/23/2014 12/20/2014 Inactive [SAVINGS FOR NON-COVERED DRUGS -- BIN:282103 , PCN: ASPROD1, Group: XXXXX, ID# [id number], Questions: . THIS IS NOT INSURANCE.] Duragesic 12 mcg/hr transdermal patch RxNorm: 621758 1 TD q72 hours 09/09/2014 09/25/2014 Inactive [SAVINGS FOR NON-COVERED DRUGS -- BIN:246204, PCN: ASPROD1, Group : XXXXX, ID# XXXXXXX, Questions: . THIS IS NOT INSURANCE.] carbidopa 25 mg-levodopa 100 mg tablet RxNorm: 729209 2 in the am 1 at noon and 1 katie Tablet(s) PO BID 08/31/20142014 Inactive [SAVINGS FOR NON-COVERED DRUGS -- BIN:868715, PCN: ASPROD1, Group: XXXXX, ID# [id number], Questions: . THIS IS NOT INSURANCE.] Vitamin D2 50,000 unit capsule RxNorm: 223303 1 CAPSULE(S) PO WEEKLY X 12 WEEKS 08/15/2014 10/23/2014 Inactive hydrocodone 5 mg-acetaminophen 325 mg tablet RxNorm: 680754 1 Tablet(s) PO Q4H as needed 08/12/2014 09/22/2014 Inactive [SAVINGS FOR NON-COVERED DRUGS -- BIN:977925 , PCN: ASPROD1, Group: XXXXX, ID# [id number], Questions: . THIS IS NOT INSURANCE.] hydrocodone 10 mg-acetaminophen 325 mg tablet RxNorm: 877810 1/2 to 1 Tablet(s) PO q 4 hours prn for uncontrolled pain 07/14/2014 08/11/2014 Inactive [SAVINGS FOR NON-COVERED DRUGS -- BIN:490833, PCN: ASPROD1, Group: XXXXX, ID# [id number], Questions: . THIS IS NOT INSURANCE.] gabapentin 100 mg capsule RxNorm: 335044 1 Capsule(s) PO nightly x1week, then twice daily x 1 week, then tihree times daily thereafter 08/20/2015 Inactive [SAVINGS FOR NON-COVERED DRUGS -- BIN:764729, PCN: ASPROD1, Group: XXXXX, ID# [id number], Questions: . THIS IS NOT INSURANCE.] Bactrim DS 800 mg-160 mg tablet RxNorm: 433597 1 Tablet(s) PO BID 07/01/2014 07/07/2014 Inactive [SAVINGS FOR NON-COVERED DRUGS -- BIN:[id number], PCN: ASPROD1, Group: [id number], ID# [id number], Questions: . THIS IS NOT INSURANCE.] Bactrim DS 800 mg-160 mg tablet RxNorm: 224393 1 Tablet(s) PO BID 07/01/2014 06/30/2014 Inactive Vitamin D2 50,000 unit capsule RxNorm: 952406 1 Capsule(s) PO weekly x 12 weeks 06/07/2014 08/14/2014 Inactive after patient is finished with vit D 32438m for the 12 weeks, she is to start on OTC vitamin D 2000 units daily Keflex 500 mg capsule RxNorm: 057890 1 Capsule(s) PO BID 201405/29/2014 Inactive carbidopa 25 mg-levodopa 100 mg tablet RxNorm: 736517 1 Tablet(s) PO BID 05/30/2014 08/30/2014 Inactive [SAVINGS FOR UNINSURED PATIENTS -- BIN:[id number], PCN: ASPROD1 , Group: [id number], ID# [id number], Process claim through [employer], for questions: 1- [phone]. THIS IS NOT INSURANCE.] Keflex 500 mg capsule RxNorm: 889516 1 Capsule(s) PO BID 201406/05/2014 Inactive [SAVINGS FOR UNINSURED PATIENTS -- BIN:110193, PCN: ASPROD1, Group: [id number], ID # [id number], Process claim through [employer], for questions: . THIS IS NOT INSURANCE.] carbidopa 25 mg-levodopa 100 mg tablet RxNorm: 555091 1 Tablet(s) PO BID 05/23/2014 05/29/2014 Inactive [SAVINGS FOR UNINSURED PATIENTS -- BIN:167262, PCN: ASPROD1 , Group: [id number], ID# [id number], Process claim through [employer], for questions: 1- [phone]. THIS IS NOT INSURANCE.] carbidopa 25 mg-levodopa 100 mg tablet RxNorm: 639432 1/2 Tablet(s) PO BID 05/03/2014 05/22/2014 Inactive [SAVINGS FOR UNINSURED PATIENTS -- BIN:235555, PCN: ASPROD1, Group: [id number], ID# [id number], Process claim through [employer], for questions: . THIS IS NOT INSURANCE.] pen needle, diabetic, remover & disposal unit 31 x /16" RxNorm: 1 use Miscellaneous 03/31/2014 09/21/2015 Inactive [SAVINGS FOR UNINSURED PATIENTS -- BIN :740303, PCN: ASPROD1, Group: [id number], ID# [id number], Process claim through [employer], for questions: . THIS IS NOT INSURANCE.] Lantus Solostar 100 unit/mL (3 mL) subcutaneous insulin pen RxNorm: 180653 10 Unit(s) SQ daily (may be adjusted for further glucose control) 03/31/2014 09/27/2014 Inactive [SAVINGS FOR UNINSURED PATIENTS -- BIN:571577, PCN: ASPROD1, Group: [id number], ID# [id number], Process claim through [employer], for questions: [phone]. THIS IS NOT INSURANCE.] Vitamin D2 50,000 unit capsule RxNorm: 923631 1 Capsule(s) PO weekly x 12 weeks 03/22/2014 06/06/2014 Inactive after patient is finished with vit D 77078c for the 12 weeks, she is to start on OTC vitamin D 2000 units daily Vitamin D2 50,000 unit capsule RxNorm: 122710 1 Capsule(s) PO weekly x 12 weeks 03/22/2014 03/21/2014 Inactive after patient is finished with vit D 59636v for the 12 weeks, she is to start on OTC vitamin D 2000 units daily metformin 500 mg tablet RxNorm: 963576 1 Tablet(s) PO BID 03/1803/30/2014 Inactive [SAVINGS FOR UNINSURED PATIENTS -- BIN:276135, PCN: ASPROD1, Group: [id number], ID# [id number], Process claim through [employer], for questions: . THIS IS NOT INSURANCE.] Lidoderm 5 % (700 mg/patch) adhesive patch RxNorm: 6990673 1 TOP PRN for back pain. NEEDS PA IF ORDERED AGAIN No Start Date Active diclofenac sodium topical RxNorm: 3355 topical No Start Date Active Lasix 20 mg tablet RxNorm: 404997 Tablet(s) daily x 5 with k 10 daily x 5 PO No Start Date Active multivitamin tablet RxNorm: 1 Tablet(s) PO daily No Start Date Active oxybutynin chloride 5 mg tablet RxNorm: 395411 1 Tablet(s) PO daily No Start Date 03/30/2014 Inactive Sinemet CR 25 mg-100 mg tablet,extended release RxNorm: 430995 2 Tablet(s) PO QID No Start Date 06/19/2016 Inactive Namenda 5 mg tablet RxNorm: 151993 Tablet(s) PO No Start Date 10/11/2015 Inactive amlodipine 2.5 mg tablet RxNorm: 875160 1 Tablet(s) PO daily No Start Date 03/30/2014 Inactive Cozaar 50 mg tablet RxNorm: 844417 1 Tablet(s) PO daily No Start Date 05/21/2016 Inactive Voltaren 1 % topical gel RxNorm: 070980 4 Gram(s) TOP to lower back/hips QID No Start Date 07/10/2016 Inactive hydrochlorothiazide 25 mg tablet RxNorm: 573565 1 Tablet(s) PO daily No Start Date 03/30/2014 Inactive pramipexole 0.25 mg tablet RxNorm: 753008 1 Tablet(s) PO daily No Start Date 05/02/2014 Inactive simvastatin 40 mg tablet RxNorm: 930973 oral No Start Date 05/02/2014 Inactive vitamin O25-twwyepl B1 oral liquid RxNorm: PO No Start Date 10/12/2015 Inactive 2000u daily Fosamax Plus D oral RxNorm: 910284 oral No Start Date 05/02/2014 Inactive Actos 45 mg tablet RxNorm: 908634 1 Tablet(s) PO daily No Start Date 03/30/2014 Inactive Duragesic 12 mcg/hr transdermal patch RxNorm: 742817 1 TD q72 hours No Start Date 09/08/2014 Inactive Vitamin D3 2,000 unit capsule RxNorm: 746623 1 Capsule(s) PO daily No Start Date 11/07/2015 Inactive mecobalamin 5,000 mcg disintegrating tablet RxNorm: 8589852 1 Tablet(s) PO daily No Start Date 05/21/2016 Inactive magnesium 250 mg tablet RxNorm: 1 Tablet(s) PO daily No Start Date 05/02/2014 Inactive Refresh Tears 0.5 % eye drops RxNorm: 7725071 1 Drop(s) OPH daily as needed for dry eyes No Start Date 06/27/2016 Inactive furosemide 40 mg tablet RxNorm: 323541 1 Tablet(s) PO daily No Start Date 05/02/2014 Inactive trazodone 50 mg tablet RxNorm: 087750 1 Tablet(s) PO QHS No Start Date 05/21/2016 Inactive glipizide 10 mg tablet RxNorm: 467353 1 Tablet(s) PO daily No Start Date 05/02/2014 Inactive hydrocodone 10 mg-acetaminophen 325 mg tablet RxNorm: 230514 oral No Start Date 07/13/2014 Inactive Refresh ophthalmic RxNorm: 619047 ophthalmic No Start Date 06/28/2016 Inactive capsaicin 0.025 % topical cream RxNorm: 247734 1 Application TOP QID No Start Date 04/15/2016 Inactive Aleve 220 mg tablet RxNorm: 435752 1 Tablet(s) PO daily as needed No Start Date 05/13/2016 Inactive senna 8.6 mg tablet RxNorm: 408184 1 Tablet(s) PO daily as needed No Start Date 10/02/2016 Inactive biotin 1000 mcg RxNorm : 1 Tablet(s) PO daily No Start Date 05/02/2014 Inactive ranitidine 150 mg capsule RxNorm: 552712 2 Capsule(s) PO daily No Start Date 05/02/2014 Inactive hydrocodone 5 mg-acetaminophen 325 mg tablet RxNorm: 975776 1 Tablet(s) PO Q4H as needed No Start Date 08/11/2014 Inactive Calcitrate-Vitamin D oral RxNorm: 1895 oral No Start Date 11/07/2015 Inactive potassium chloride RxNorm: 07799 miscellaneous No Start Date 05/02/2014 Inactive metformin 500 mg tablet RxNorm: 686165 2 Tablet(s) PO daily No Start Date 03/17/2014 Inactive aspirin 81 mg tablet RxNorm: 865073 1 Tablet(s) PO daily No Start Date [...] Item Item Code Result Date Culture Urine [id number] URINE CULTURE SEE NOTES 05/02/2017 Culture Urine [id number] Continued Results 05/02/2017 Urine Culture Ucult Complete [...] U-Com Culture to follow 04/29/2017 Culture Urine [id number] URINE CULTURE SEE NOTES 04/07/2017 Culture Urine [id number] Continued Results 04/07/2017 Urine Culture Ucult Complete [...] Urinalysis Ord28 U-Yeast NEGATIVE 04/04/2017 Culture Urine [id number] URINE CULTURE SEE NOTES 01/13/2017 Culture Urine [id number] Continued Results 01/13/2017 Urine Culture Ucult Complete [...] Uric A 4.5 mg/dL 07/29/2016 Comp Metabolic Xro084 NA 134 mEq/L 06/26/2016 Comp Metabolic Rao634 K 4.8 mEq/L 06/26/2016 Comp Metabolic Ldn452 CL 98 mEq/L 06/26/2016 Comp Metabolic Miz830 CO2 28.0 mEq/L 06/26/2016 Comp Metabolic Hvy348 ANION GAP 13 06/26/2016 Comp Metabolic Vff197 GLUCOSE 270 mg/dL 06/26/2016 Comp Metabolic Brt098 Creat 0.9 mg/dL 06/26/2016 Comp Metabolic Rfa544 eGFR 68 ml/min/1.73m2 06/26/2016 Comp Metabolic Glk045 BUN 22 mg/dL 06/26/2016 Comp Metabolic Uno265 B/C Ratio 25.9 Ratio 06/26/2016 Comp Metabolic Lwq917 CALCIUM 9.0 mg/dL 06/26/2016 Comp Metabolic Gya924 ALK PHOS 119 U/L 06/26/2016 Comp Metabolic Fhw184 AST(SGOT) 34 U/L 06/26/2016 Comp Metabolic Nec564 ALT(SGPT) 18 U/L 06/26/2016 Comp Metabolic Bew440 BILI T 0.5 mg/dL 06/26/2016 Comp Metabolic Kjv747 ALBUMIN 4.1 g/dL 06/26/2016 Comp Metabolic Los229 TPRO 6.8 g/dL 06/26/2016 Comp Metabolic Yiq113 GLOB 2.7 g/dL 06/26/2016 Comp Metabolic Wvw171 A/G Ratio 1.5 Ratio 06/26/2016 Comp Metabolic Esv427 Osmo 281 mOsmo 06/26/2016 Tsh Ord6 hTSH II 1.57 uIU/mL 06/26/2016 Vitamin D 25 Oh Phq3064 VITAMIN D, 25 HYDROXY 65.10 ng/mL %Hba1C Age911 % HbA1c 41462-7 7.6 % 06/26/2016 %Hba1C Dhr080 Gluc Ave 171 mg/dL 06/26/2016 Lipid Ord30 CHOL 225 mg/dL 06/26/2016 Lipid Ord30 HDL 49.0 mg/dl 06/26/2016 Lipid Ord30 TRIG 208 mg/dL 06/26/2016 Lipid Ord30 LDL 134 mg/dL 06/26/2016 Lipid Ord30 C/HDL 4.6 Ratio 06/26/2016 Culture Urine [id number] URINE CULTURE SEE NOTES 03/11/2016 Culture Urine [id number] Continued Results 03/11/2016 Urine Culture Ucult Complete [...] Ord15 CALCIUM 9.5 mg/dL 01/24/2016 Culture Urine [id number] URINE CULTURE SEE NOTES 12/29/2015 Culture Urine [id number] Continued Results 12/29/2015 Urine Culture Ucult Complete >100,000 col/ml aerobic growth sent to ref lab 12/27/2015 %Hba1C Hvd169 % HbA1c 09102-9 8.3 % 12/26/2015 %Hba1C Bgs880 Gluc Ave 192 mg/dL 12/26/2015 Culture Urine [id number] URINE CULTURE SEE NOTES 10/09/2015 Culture Urine [id number] Continued Results 10/09/2015 Urine Culture Ucult Complete [...] Tsh Ord6 hTSH II 1.24 uIU/mL 09/13/2015 %Hba1C Bdf041 % HbA1c 82400-9 9.1 % 09/13/2015 %Hba1C Mpm028 Gluc Ave 214 mg/dL 09/13/2015 Cbc With Differential Ord2 WBC 6.56 [...] 30.1 pg 09/13/2015 Cbc With Differential Ord2 [place]% 6.6 % 09/13/2015 Cbc With Differential Ord2 [...] 1.66 K/ul 09/13/2015 Cbc With Differential Ord2 [place] ABS# 0.4 K/ul 09/13/2015 Cbc With Differential Ord2 Eos ABS# 0.1 K/ul 09/13/2015 Cbc With Differential Ord2 Baso ABS# 0.0 K/ul 09/13/2015 Cbc With Differential Ord2 New Analyzer Notice Please note new ref ranges starting 05-10-2015 due to implemntation of new five part differential hematolgy analyzer. 09/13/2015 Comp Metabolic Jse318 NA 137 mEq/L 09/13/2015 Comp Metabolic Jlq814 K 4.5 mEq/L 09/13/2015 Comp Metabolic Eoz436 CL 100 mEq/L 09/13/2015 Comp Metabolic Rqb696 CO2 28.0 mEq/L 09/13/2015 Comp Metabolic Cfj151 ANION GAP 14 09/13/2015 Comp Metabolic Ebq022 GLUCOSE 124 mg/dL 09/13/2015 Comp Metabolic Qmw311 Creat 0.9 mg/dL 09/13/2015 Comp Metabolic Udg522 eGFR 65 ml/min/1.73m2 09/13/2015 Comp Metabolic Cbg228 BUN 20 mg/dL 09/13/2015 Comp Metabolic Cua121 B/C Ratio 22.7 Ratio 09/13/2015 Comp Metabolic Qvz197 CALCIUM 8.8 mg/dL 09/13/2015 Comp Metabolic Peq689 ALK PHOS 64 U/L 09/13/2015 Comp Metabolic Snz652 AST(SGOT) 16 U/L 09/13/2015 Comp Metabolic Xhk407 ALT(SGPT) 13 U/L 09/13/2015 Comp Metabolic Wxc193 BILI T 0.7 mg/dL 09/13/2015 Comp Metabolic Rbr842 ALBUMIN 3.9 g/dL 09/13/2015 Comp Metabolic Mxo550 TPRO 6.7 g/dL 09/13/2015 Comp Metabolic Pug799 GLOB 2.8 g/dL 09/13/2015 Comp Metabolic Vvd173 A/G Ratio 1.4 Ratio 09/13/2015 Comp Metabolic Qur249 Osmo 278 mOsmo 09/13/2015 Urine Culture Ucult Preliminary No Growth [...] Urinalysis Ord28 U-Yeast NEGATIVE 09/08/2015 Culture Urine [id number] URINE CULTURE SEE NOTES 03/03/2015 Culture Urine [id number] Continued Results 03/03/2015 Urine Culture Ucult Complete [...] to follow 01/17/2015 Vitamin D 25 Oh Emh3809 VITAMIN D, 25 HYDROXY 48.78 ng/mL Comp Metabolic Rpq359 NA 135 mEq/L 12/13/2014 Comp Metabolic Wih120 K 4.5 mEq/L 12/13/2014 Comp Metabolic Bbx168 CL 101 mEq/L 12/13/2014 Comp Metabolic Dvt462 CO2 28.0 mEq/L 12/13/2014 Comp Metabolic Thz018 ANION GAP 11 12/13/2014 Comp Metabolic Fro792 GLUCOSE 90 mg/dL 12/13/2014 Comp Metabolic Ijq304 Creat 1.1 mg/dL 12/13/2014 Comp Metabolic Koz852 eGFR 50 ml/min/1.73m2 12/13/2014 Comp Metabolic Tcs074 BUN 19 mg/dL 12/13/2014 Comp Metabolic Dgp845 B/C Ratio 17.1 Ratio 12/13/2014 Comp Metabolic Iac543 CALCIUM 9.3 mg/dL 12/13/2014 Comp Metabolic Qwp133 ALK PHOS 74 U/L 12/13/2014 Comp Metabolic Cqk202 AST(SGOT) 16 U/L 12/13/2014 Comp Metabolic Khd339 ALT(SGPT) 3 U/L 12/13/2014 Comp Metabolic Ztj829 BILI T 0.4 mg/dL 12/13/2014 Comp Metabolic Boa027 ALBUMIN 3.7 g/dL 12/13/2014 Comp Metabolic Gfs631 TPRO 6.4 g/dL 12/13/2014 Comp Metabolic Vbf430 GLOB 2.7 g/dL 12/13/2014 Comp Metabolic Ejt054 A/G Ratio 1.4 Ratio 12/13/2014 Comp Metabolic Ahr439 Osmo 272 mOsmo 12/13/2014 %Hba1C Umm233 % HbA1c 16016-0 7.2 % 12/13/2014 %Hba1C Rbj585 Gluc Ave 160 mg/dL 12/13/2014 Tsh Ord6 hTSH II 1.22 uIU/mL [...] With Differential Ord2 RDW 15.1 % 12/13/2014 Review of Systems System Result Effective [...] Codes Date URINALYSIS NONAUTO W/O SCOPE CPT-4: 32303 12/26/2015 URINALYSIS NONAUTO W/O SCOPE CPT-4: 88511 12/09/2014 URINALYSIS NONAUTO W/O SCOPE CPT-4: 29435 07/12/2014 Vital Signs Date Vital 01/09/2017 Blood Pressure 1: 144/82 Code : 8480-6 BMI: 36.8 Code : 65067-2 Heart Rate 1 : 84 bpm Height: 4'11" SpO2: 95% Weight: 182 lbs 09/27/2016 Blood Pressure 1: 152/74 Code : 8480-6 BMI: 38.1 Code : 07005-5 Heart Rate 1 : 80 bpm Height: 4'11" SpO2: 95% Weight: 188 lbs 8 oz 07/29/2016 Blood Pressure 1: 152/76 Code : 8480-6 BMI: 39.0 Code : 11223-4 Heart Rate 1 : 90 bpm Height: 4'11" SpO2: 97% Weight: 193 lbs 06/28/2016 Blood Pressure 1: 130/74 Code : 8480-6 BMI: 40.6 Code : 12874-8 Heart Rate 1 : 85 bpm Height: 4'11" SpO2: 97% Weight: 201 lbs 03/26/2016 Blood Pressure 1: 130/62 Code : 8480-6 Heart Rate 1: 76 bpm Height: SpO2: 93% Weight: 03/07/2016 Blood Pressure 1: 144/60 Code : 8480-6 BMI: 40.4 Code : 72623-8 Heart Rate 1 : 85 bpm Height: 4'11" SpO2: 95% Weight: 200 lbs 01/24/2016 Blood Pressure 1: 134/50 Code : 8480-6 BMI: 40.4 Code : 60137-4 Heart Rate 1 : 91 bpm Height: 4'11" SpO2: 96% Weight: 200 lbs 01/19/2016 Blood Pressure 1: 158/72 Code : 8480-6 BMI: 40.8 Code : 91823-0 Heart Rate 1 : 82 bpm Height: 4'11" SpO2: 96% Weight: 202 lbs 01/16/2016 Blood Pressure 1: 164/70 Code : 8480-6 BMI: 41.2 Code : 05716-4 Heart Rate 1 : 87 bpm Height: 4'11" SpO2: 94% Weight: 204 lbs 12/26/2015 Blood Pressure 1: 142/70 Code : 8480-6 BMI: 40.4 Code : 89371-0 Heart Rate 1 : 89 bpm Height: 4'11" SpO2: 98% Weight: 200 lbs 10/12/2015 Blood Pressure 1: 140/68 Code : 8480-6 BMI: 39.6 Code : 98342-9 Heart Rate 1 : 81 bpm Height: 4'11" SpO2: 96% Weight: 196 lbs 09/08/2015 Blood Pressure 1: 130/80 Code : 8480-6 BMI: 38.8 Code : 45362-4 Heart Rate 1 : 94 bpm Height: 4'11" SpO2: 95% Weight: 192 lbs 08/21/2015 Blood Pressure 1: 128/82 Code : 8480-6 BMI: 38.4 Code : 19864-1 Heart Rate 1 : 84 bpm Height: 4'11" SpO2: 96% Weight: 190 lbs 02/16/2015 Blood Pressure 1: 138/68 Code : 8480-6 BMI: 37.2 Code : 41848-4 Heart Rate 1 : 81 bpm Height: 4'11" SpO2: 95% Weight: 184 lbs 01/16/2015 Blood Pressure 1: 134/64 Code : 8480-6 BMI: 36.8 Code : 75164-3 Heart Rate 1 : 76 bpm Height: [...] Weight: 172 lbs 05/03/2014 BMI: 36.2 Code: 60504-6 Height: 4'11" Weight: 179 lbs 03/31/2014 Blood Pressure 1: 112/68 Code : 8480-6 BMI: 35.1 Code : 74533-6 Heart Rate 1 : 74 bpm Height: 4'11" Weight: 174 lbs 03/18/2014 Blood Pressure 1: 138/70 Code : 8480-6 BMI: 37.0 Code : 51631-0 Heart Rate 1 : 78 bpm Height: [...] Urgency of urination[ICD10: R39.15] Tanvi Islas MD, [facility] CPT-4: 52928 01/09/2017 ([id number]) 88396 EST. PATIENT, LEVEL IV Diagnosis: Essential (primary) hypertension[ICD10: I10] Diagnosis: Type 2 diabetes mellitus with hyperglycemia[ICD10: E11.65] Diagnosis: Parkinson's disease[ICD10: G20] Diagnosis: Bilateral primary osteoarthritis of hip[ICD10: M16.0] Amee Islas MD, [facility] CPT-4: 50350 09/27/2016 67049 EST. PATIENT, LEVEL IV Diagnosis: Pain in right toe(s)[ICD10: M79.674] Diagnosis: Localized edema[ICD10: R60.0] Diagnosis: Low back pain[ICD10: M54.5] Tanvi Islas MD, [facility] CPT-4 : 52427 07/29/2016 ([id number]) 17234 EST. PATIENT, LEVEL III Diagnosis: Pain in left hip[ICD10: M25.552] Amee Islas MD, [facility] CPT-4: 23633 06/28/2016 ([id number]) 35323 EST. PATIENT, LEVEL IV Diagnosis: Type 2 diabetes mellitus with hyperglycemia[ICD10: E11.65] Diagnosis: Parkinson's disease[ICD10: G20] Diagnosis: Essential (primary) hypertension[ICD10: I10] Diagnosis: Muscle weakness (generalized)[ICD10: M62.81] Diagnosis: Localized edema[ICD10: R60.0] Celestina Islas MD, [facility] CPT- 4: 66078 03/26/2016 37146 EST. PATIENT, LEVEL III Diagnosis: Dysuria[ICD10: R30.0] Diagnosis: Left upper quadrant pain[ICD10: R10.12] Tanvi Islas MD, [facility] CPT-4: 17749 03/07/2016 77719 EST. PATIENT, LEVEL IV Diagnosis: Encounter for follow-up examination after completed treatment for conditions other than malignant neoplasm[ICD10: Z09] Tanvi Islas MD, [facility] CPT-4: 77712 01/24/2016 ([id number]) Miscellaneous no charge Diagnosis: Localized edema[ICD10: R60.0] Tanvi Islas MD [facility] CPT-4 : 09019 01/19/2016 [id number] EST. PATIENT, LEVEL IV Diagnosis: Localized edema[ICD10: R60.0] Diagnosis: Other skin changes[ICD10: R23.8] Diagnosis: Low back pain[ICD10: M54.5] Tanvi Islas MD, [facility] CPT-4 : 44904 01/16/2016 ([id number]) 20927 EST. PATIENT, LEVEL IV Diagnosis: Type 2 diabetes mellitus with hyperglycemia[ICD10: E11.65] Diagnosis: Parkinson's disease[ICD10: G20] Diagnosis: Essential (primary) hypertension[ICD10: I10] Diagnosis: Dysuria[ICD10: R30.0] Diagnosis: Low back pain[ICD10: M54.5] Celestina Islas MD, [facility] CPT- 4: 18213 12/26/2015 ([id number]) 72420 EST. PATIENT, LEVEL IV Diagnosis: Type 2 diabetes mellitus with hyperglycemia[ICD10: E11.65] Diagnosis: Parkinson's disease[ICD10: G20] Diagnosis: Essential (primary) hypertension[ICD10: I10] Diagnosis: Bilateral primary osteoarthritis of hip[ICD10: M16.0] Celestina Islas MD, [facility] CPT-4: 08678 10/12/2015 ([id number]) 89496 EST. PATIENT, LEVEL III Diagnosis: Essential (primary) hypertension[ICD10: I10] Diagnosis: Localized edema[ICD10: R60.0] Diagnosis: Unsteadiness on feet[ICD10: R26.81] Diagnosis: Muscle weakness (generalized)[ICD10: M62.81] Diagnosis: Bilateral primary osteoarthritis of hip[ICD10: M16.0] Amee Islas MD, [facility] CPT-4: 88908 09/08/2015 [id number]) 49299 EST. PATIENT, LEVEL IV Diagnosis: Type 2 diabetes mellitus with hyperglycemia[ICD10: E11.65] Diagnosis: Essential (primary) hypertension[ICD10: I10] Diagnosis: Muscle weakness (generalized)[ICD10: M62.81] Diagnosis: Parkinson's disease[ICD10: G20] Diagnosis: Low back pain[ICD10: M54.5] Amee Islas MD [facility] CPT-4: 09172 08/21/2015 ([id number]) 01389 EST. PATIENT, LEVEL IV Diagnosis: Parkinson's disease[ICD10: G20] Diagnosis: Essential (primary) hypertension[ICD10: I10] Diagnosis: Type 2 diabetes mellitus with hyperglycemia[ICD10: E11.65] Diagnosis: Pain in unspecified hip[ICD10: M25.559] Celestina Islas MD [facility] CPT-4: 28968 02/16/2015 ([id number]) 98737 EST. PATIENT, LEVEL IV Diagnosis: Dysuria[ICD9: 788.1] Diagnosis: Parkinson's disease[ICD9: 332.0] Diagnosis: ESSENTIAL HYPERTENSION[ICD9: 401.9] Amee Islas MD [facility] CPT-4: 37697 01/16/2015 ([id number]) 84320 EST. PATIENT, LEVEL IV Diagnosis: UTI (urinary tract infection)[ICD9: 599.0] Diagnosis: DM W/O COMPLICATION TYPE II, UNCONTROLLED[ICD9: 250.02] Diagnosis: ESSENTIAL HYPERTENSION[ICD9: 401.9] Diagnosis: EDEMA[ICD9: 782.3] Celestina Islas MD, [facility] CPT-4: 04340 12/09/2014 ([id number]) 27880 EST. PATIENT, LEVEL IV Diagnosis: ESSENTIAL HYPERTENSION[ICD9: 401.9] Diagnosis: DIABETES TYPE II[ICD9: 250.00] Diagnosis: Parkinson's disease[ICD9: 332.0] Celestina Islas MD, [facility] CPT-4: 24178 09/28/2014 ([id number]) Patient admitted to the hospital from clinic (NO CHARGE) Diagnosis: Back pain[ICD9: 724.5] Diagnosis: EDEMA[ICD9: 782.3] Diagnosis: MALAISE AND FATIGUE[ICD9: 780.79] Diagnosis: Parkinson's disease[ICD9: 332.0] Diagnosis: ESSENTIAL HYPERTENSION[ICD9: 401.9] Diagnosis: Cellulitis[ICD9: 682.9] Diagnosis: Hip pain[ICD9: 719.45] Celestina Islas MD, [facility] CPT-4: 77068V 07/19/2014 ([id number]) 05615 EST. PATIENT, LEVEL IV Diagnosis: DM W/O COMPLICATION TYPE II, UNCONTROLLED[ICD9: 250.02] Diagnosis: Back pain[ICD9: 724.5] Diagnosis: EDEMA[ICD9: 782.3] Diagnosis: Parkinson's disease[ICD9: 332.0] Celestina Islas MD, [facility] CPT-4: 60565 07/12/2014 ([id number]) 40996 EST. PATIENT, LEVEL IV Diagnosis: EDEMA[ICD9: 782.3] Diagnosis: Chronic osteoarthritis[ICD9: 715.90] Diagnosis: Bilateral arm weakness[ICD9: 729.89] Diagnosis: Parkinson's disease[ICD9: 332.0] Diagnosis: Back pain[ICD9: 724.5] Celestina Islas MD, [facility] CPT-4: 90799 05/03/2014 ([id number]) 11092 EST. PATIENT, LEVEL IV Diagnosis: DM W/O COMPLICATION TYPE II, UNCONTROLLED[ICD9: 250.02] Diagnosis: ESSENTIAL HYPERTENSION[ICD9: 401.9] Diagnosis: EDEMA[ICD9: 782.3] Diagnosis: MALAISE AND FATIGUE[ICD9: 780.79] Celestina Islas MD, [facility] CPT-4: 50053 03/31/2014 ([id number]) OFFICE/OUTPATIENT VISIT NEW Diagnosis: ESSENTIAL HYPERTENSION[ICD9: 401.9] Diagnosis: DM W/O COMPLICATION TYPE II, UNCONTROLLED[ICD9: 250.02] Diagnosis: OBESITY[ICD9: 278.00] Diagnosis: EDEMA[ICD9: 782.3] Diagnosis: MALAISE AND FATIGUE[ICD9: 780.79] Diagnosis: Restless leg[ICD9: 333.94] Celestina Islas MD, [facility] CPT- 4: 10525 03/18/2014 Plan of Care Planned Activity Notes [...] or concerns. 01/09/2017 Appointment: Tanvi Wiggins WPtel: [phone] [facility] [id number] [place] (30 min) Complex 01/09/2017 Patient Education: [...] of over-medication. 09/27/2016 Appointment: Amee Esteves WPtel: [phone] [facility] [phone] [place] (30 min) Complex 09/27/2016 Patient Education: [...] peripheral edema. 07/29/2016 Appointment: Tanvi Wiggins WPtel: [phone] [facility] (30 min) Complex 07/29/2016 Patient Education: Patient Medication Summary Completed 07/29/2016 Patient Education: Obesity Completed 07/29/2016 Visit Plan: Left hip pain-recent fall-ER f/u-pain improving -no changes in treatment at this time. 06/28/2016 Appointment: Amee Esteves WPtel: [phone] [phone] [place] (30 min) Complex 06/28/2016 Patient Education: [...] lasix. 03/26/2016 Appointment: Celestina Islas WPtel: [phone] [facility] (15 min) Moderate 03/26/2016 Patient Education: Patient Medication Summary Completed 03/26/2016 Care Plan: COMPLETE CBC AUTOMATED LOINC : 86594-7 Pending 03/26/2016 Care Plan: MICROALBUMIN QUANTITATIVE LOINC : 26413-4 Pending 03/26/2016 Visit Plan: Left flank pain/UTI - pt with positive urinalysis - culture sent if appropriate. Antibiotic electronically prescribed to pt's pharmacy of choice. Pt to call if symptoms do not improve. 03/07/2016 Appointment: Tanvi Wiggins WPtel: [phone] [facility] (30 min) Complex 03/07/2016 Patient Education: Patient [...] edema. 01/24/2016 Appointment: Amee Esteves WPtel: [phone] [phone] (30 min) Complex 01/24/2016 Patient Education: Patient [...] concerns. 01/16/2016 Appointment: Amee Esteves WPtel: [phone] [phone] (30 min) Complex 01/16/2016 Patient Education: [...] treatment. 12/26/2015 [phone] [facility] Moderate 12/26/2015 Patient Education: [...] prn hydrocodone 10/12/2015 Appointment[phone] [place] (15 min) Moderate 10/12/2015 Patient [...] kcl 10meq daily x 5 days Gait rxcgtaipwek-bfcjodxw-CD of hips-chronic back pain-RX for wheelchair 09/08/2015 Appointment: Amee Esteves WPtel: [address] [place], [place] [phone] (30 min) [facility] 09/08/2015 Patient Education: Patient Medication Summary [...] 08/21/2015 Care Plan: Referral Order SNOMED-CT : [id number] Ordered 02/19/2015 Visit Plan: Parkinson's Disease - [...] - monitor symptoms. Will refer pt to [facility]. Hypertension - well controlled - continue [...] to become less controlled. 02/16/2015 Appointment: [phone] [id number] (15 min) Moderate 02/16/2015 Patient Education: [...] Care Plan: COMPLETE CBC AUTOMATED LOINC : 09172-9 Ordered 12/09/2014 Visit Plan: Hypertension - well [...] glucose control. 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 dm - resume home medications htn - resume home medications. 07/19/2014 App[facility]ment: [facility] [phone] [id number] [facility] 07/19/2014 Patient Education: Patient Medication Summary [...] report. 07/12/2014 App[facility]ment[id number] [facility] 07/12/2014 Patient Education: Patient [...] chair. 05/03/2014 App[facility]ment: [phone] [id number] Follow up 05/03/2014 Patient Education: Patient [...] edema. 03/31/2014 App[facility]ment[id number] Follow [facility] 03/31/2014 Patient Education: Patient [...] friday and friday03/18/2014 Appointment: Celestina Islas WPtel[id number] [place] New Patient 03/18/2014 Patient Education: Patient Medication Summary Completed 03/18/2014 Patient Education: Hypertension Completed 03/18/2014 Referral: External, Ordering Provider Referral Appointment Requested Instructions Comment Wheelchair DX weakness, gait instability Increase duragesic [...] pain/OA - continue with prn hydrocodone . Left flank pain/UTI - pt with positive urinalysis - culture sent if appropriate. Antibiotic electronically prescribed to pt's pharmacy of choice. Pt to call if symptoms do not improve. . continue orders - notify clinic if symptoms do not improve or with any concerns. . Diabetes Mellitus - Uncontrolled - per [...] to further attempt to reduce peripheral edema. start on GABAPENTIN - (neurontin) - one [...] directed, and understands the consequences of over-medication. stop simvastatin stop hctz decrease actos to [...] the potassium friday, friday and friday . Low back pain- the patient was [...] - monitor symptoms. Will refer pt to [facility]. Hypertension - well controlled - continue [...] further attempt to reduce peripheral edema. . Edema - pt has been advised [...] or with any changes, questions, or concerns. . 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 dm - resume home medications htn - resume home medications. Wheelchair DX weakness, gait instability Increase duragesic [...] kcl 10meq daily x 5 days Gait aepqdkhnnya-skhpnujb-LB of hips-chronic back pain-RX for wheelchair . [...] allow for greater blood glucose control. . Left hip pain-recent fall-ER f/u-pain improving-no changes in treatment at this time. . Diabetes Mellitus - controlled - per [...] - monitor symptoms - continue with lasix. CHECK UA WITH C&S IF INDICATED . [...]
--- OUTSIDE RECORDS SUMMARY | 2017-07-29 19:57 | XMS REPORT | Continuity of Care Document ---
Author Author [facility] Organization [facility] Address Unknown Phone Unavailable Allergies Active Description Code Type Severity Reaction Onset Reported/Identified Relationship to Patient Clinical Status Yes morphine [id number] Drug Allergy Unknown N/A 12/14/2007 Medications There is no data. Problems Date Dx Coded Attending Type Code Diagnosis Diagnosed By 10/05/2010 Ot 457.1 10/05/2010 Ot V45.89 10/05/2010 Ot V57.21 02/21/2014 HUMA NICHOLAS MD Ot 721.3 LUMBOSACRAL SPONDYLOSIS 02/21/2014 HUMA NICHOLAS MD Ot 724.6 DISORDERS OF SACRUM 02/21/2014 HUMA NICHOLAS MD Ot V58.69 OT MED,LT,CURRENT USE 03/18/2014 HUMA NICHOLAS MD Ot 721.3 03/18/2014 HUMA NICHOLAS MD Ot V58.69 03/18/2014 HUMA NICHOLAS MD Ot 721.3 03/18/2014 HUMA NICHOLAS MD Ot V58.69 04/14/2014 NICK ADEN, LORI Beckford Ot 250.00 04/14/2014 NICK ADEN, LORI Beckford Ot 285.9 04/14/2014 LORI ROMERO MD Ot 333.90 04/14/2014 LORI ROMERO MD Ot 401.9 04/14/2014 LORI ROMERO MD Ot 459.89 04/14/2014 LORI ROMERO MD Ot 728.87 04/14/2014 LORI ROMERO MD Ot 780.93 04/14/2014 LORI ROMERO MD Ot 782.3 04/14/2014 LORI ROMERO MD Ot 786.09 04/14/2014 LORI ROMERO MD Ot V10.3 04/14/2014 LORI ROMERO MD Ot V54.19 04/27/2014 LORI ROMERO MD Ot 272.4 04/27/2014 NICK ADEN, LORI A Ot 285.9 04/27/2014 NICK ADEN, LORI A Ot 333.90 04/27/2014 NICK ADEN, LORI A Ot 401.9 04/27/2014 NICK ADEN, LORI A Ot 780.79 04/27/2014 NICK ADEN, LORI A Ot 780.93 04/27/2014 NICK ADEN, LORI A Ot 782.3 04/27/2014 NICK ADEN, LORI A Ot 782.7 04/27/2014 NICK ADEN, LORI A Ot 786.09 04/27/2014 NICK ADEN, LORI Beckford Ot V10.3 04/29/2014 ELIZABETH ADEN, KAREN Ortega Ot 891.0 OPEN WND KNEE/LEG/ANKLE 04/29/2014 KAREN JOHNSON MD Ot E000.8 OTHER EXTERNAL CAUSE STATUS 04/29/2014 ELIZABETH ADEN, KAREN Ortega Ot E817.9 MV BOARD/ALIGHT-PERS NOS 05/02/2014 NICK ADEN, LORI Beckford Ot 250.00 05/02/2014 NICK ADEN, LORI Beckford Ot 285.9 05/02/2014 NICK ADEN, LORI Beckford Ot 333.90 05/02/2014 NICK ADEN, LORI Beckford Ot 401.9 05/02/2014 NICK ADEN, LORI Beckford Ot 459.89 05/02/2014 NICK ADEN, LORI A Ot 728.87 05/02/2014 NICK ADEN, LORI A Ot 780.93 05/02/2014 NICK ADEN, LORI Beckford Ot 782.3 05/02/2014 NICK ADEN, LORI A Ot 786.09 05/02/2014 NICK ADEN, LORI A Ot V10.3 05/02/2014 NICK ADEN, LORI Beckford Ot V54.19 05/02/2014 HUMA NICHOLAS MD Ot 721.3 05/02/2014 HUMA NICHOLAS MD Ot V58.69 05/02/2014 NICK ADEN, LORI Beckford Ot 250.00 05/02/2014 NICK ADEN, LORI Beckford Ot 285.9 05/02/2014 NICK ADEN, LORI A Ot 333.90 05/02/2014 NICK ADEN, LORI A Ot 401.9 05/02/2014 NICK ADEN, LORI Beckford Ot 459.89 05/02/2014 NICK ADEN, LORI A Ot 728.87 05/02/2014 NICK ADEN, LORI A Ot 780.93 05/02/2014 NICK ADEN, LORI A Ot 782.3 05/02/2014 NICK ADEN, LORI A Ot 786.09 05/02/2014 NICK ADEN, LORI A Ot V10.3 05/02/2014 NICK ADEN, LORI A Ot V54.19 05/02/2014 NICK ADEN, LORI A Ot 272.4 05/02/2014 NICK ADEN, LORI A Ot 285.9 05/02/2014 NICK ADEN, LORI A Ot 333.90 05/02/2014 NICK ADEN, LORI A Ot 401.9 05/02/2014 NICK ADEN, LORI A Ot 780.79 05/02/2014 NICK ADEN, LORI A Ot 780.93 05/02/2014 NICK ADEN, LORI A Ot 782.3 05/02/2014 NICK ADEN, LORI A Ot 782.7 05/02/2014 NICK ADEN, LORI A Ot 786.09 05/02/2014 NICK ADEN, LORI A Ot V10.3 05/09/2014 TONY CHOI DO Ot V58.32 ENCOUNTER FOR REMOVAL OF SUTURES 06/13/2014 NICK ADEN, LORI Beckford Ot 401.9 06/13/2014 NICK ADEN, LORI Beckford Ot V58.69 07/25/2014 LORI ROMERO MD Ot 250.00 DIAB JASMINE WO COMPL, TYPE II OR UNSPEC TY 07/25/2014 LORI ROMERO MD Ot 332.0 PARALYSIS AGITANS 07/25/2014 LORI ROMERO MD Ot 338.11 ACUTE PAIN DUE TO TRAUMA 07/25/2014 LORI ROMERO MD Ot 401.9 HYPERTENSION NOS 07/25/2014 LORI ROMERO MD Ot 457.1 OTHER LYMPHEDEMA 07/25/2014 LORI ROMERO MD Ot 459.81 VENOUS INSUFFICIENCY NOS 07/25/2014 LORI ROMERO MD Ot 593.9 RENAL URETERAL DIS NOS 07/25/2014 LORI ROMERO MD Ot 707.12 ULCER OF CALF 07/25/2014 LORI ROMERO MD Ot 719.46 JOINT PAIN-L/LEG 07/25/2014 LORI ROMERO MD Ot 721.3 LUMBOSACRAL SPONDYLOSIS 07/25/2014 LORI ROMERO MD Ot 722.52 LUMB/LUMBOSAC DISC DEGEN 07/25/2014 LORI ROMERO MD Ot 739.4 SOMAT DYSFUNC SACRAL REG 07/25/2014 LORI ROMERO MD Ot 780.79 OTH MALAISE FATIGUE 07/25/2014 LORI ROMERO MD Ot 781.2 ABNORMALITY OF GAIT 07/25/2014 LORI ROMERO MD Ot 788.30 UNSPECIFIED URINARY INCONTINENCE 07/25/2014 LORI ROMERO MD Ot 959.19 OTH INJURY OF OTHER SITES OF TRUNK 07/25/2014 LORI ROMERO MD Ot 959.7 LOWER LEG INJURY NOS 07/25/2014 LORI ROMERO MD Ot E849.0 ACCIDENT IN HOME 07/25/2014 LORI ROMERO MD Ot E888.9 FALL NOS 07/25/2014 LORI ROMERO MD Ot V43.65 KNEE JOINT REPLACEMENT STATUS 07/25/2014 LORI ROMERO MD Ot V45.71 ACQUIRED ABSENCE OF BREAST AND NIPPLE 07/25/2014 LORI ROMERO MD Ot V58.67 LONG-TERM (CURRENT) USE OF INSULIN 08/02/2014 KAYLYNN ADEN, VIVEK E Ot 250.00 08/02/2014 KAYLYNN ADEN, VIVEK E Ot 332.0 08/02/2014 KAYLYNN ADEN VIVEK E Ot 459.81 08/02/2014 KAYLYNN ADEN, VIVEK E Ot 593.9 08/02/2014 KAYLYNN ADEN, VIVEK E Ot 625.6 08/02/2014 KAYLYNN ADEN, VIVEK E Ot 707.12 08/02/2014 KAYLYNN ADEN, VIVEK E Ot 721.3 08/02/2014 KAYLYNN ADEN VIVEK E Ot 722.10 08/02/2014 KAYLYNN ADEN VIVEK E Ot V57.89 08/03/2014 KAYLYNN ADEN VIVEK E Ot 250.00 08/03/2014 KAYLYNN ADEN, VIVEK E Ot 332.0 08/03/2014 KAYLYNN ADEN VIVEK E Ot 459.81 08/03/2014 CHAIDEZ MD, VIVEK E Ot 593.9 08/03/2014 KAYLYNN ADEN, VIVEK E Ot 625.6 08/03/2014 KAYLYNN ADEN, VIVEK E Ot 707.12 08/03/2014 KAYLYNN ADEN, VIVEK E Ot 721.3 08/03/2014 KAYLYNN ADEN, VIVEK E Ot 722.10 08/03/2014 KAYLYNN ADEN, VIVEK E Ot V57.89 08/03/2014 KAYLYNN ADEN, VIVEK E Ot 250.00 08/03/2014 KAYLYNN ADEN, VIVEK E Ot 332.0 08/03/2014 KAYLYNN ADEN, VIVEK E Ot 459.81 08/03/2014 KAYLYNN ADEN, VIVEK E Ot 593.9 08/03/2014 KAYLYNN ADEN, VIVEK E Ot 625.6 08/03/2014 KAYLYNN ADEN, VIVEK E Ot 707.12 08/03/2014 KAYLYNN ADEN, VIVEK E Ot 721.3 08/03/2014 KAYLYNN ADEN, VIVEK E Ot 722.10 08/03/2014 KAYLYNN ADEN, VIVEK E Ot V57.89 08/03/2014 KAYLYNN ADEN, VIVEK E Ot 250.00 08/03/2014 KAYLYNN ADEN, VIVEK E Ot 332.0 08/03/2014 KAYLYNN ADEN, VIVEK E Ot 459.81 08/03/2014 KAYLYNN ADEN, VIVEK E Ot 593.9 08/03/2014 KAYLYNN ADEN, VIVEK E Ot 625.6 08/03/2014 KAYLYNN ADEN, VIVEK E Ot 707.12 08/03/2014 KAYLYNN ADEN, VIVEK E Ot 721.3 08/03/2014 KAYLYNN ADEN, VIVEK E Ot 722.10 08/03/2014 KAYLYNN ADEN, VIVEK E Ot V57.89 08/08/2014 Ot 443.9 08/08/2014 Ot 707.10 08/09/2014 KAYLYNN ADEN, VIVEK E Ot 250.00 08/09/2014 KAYLYNN ADEN, VIVEK E Ot 332.0 08/09/2014 KAYLYNN ADEN, VIVEK E Ot 459.81 08/09/2014 KAYLYNN ADEN, VIVEK E Ot 593.9 08/09/2014 KAYLYNN ADEN, VIVEK E Ot 625.6 08/09/2014 KAYLYNN ADEN, VIVEK E Ot 707.12 08/09/2014 KAYLYNN ADEN, VIVEK E Ot 721.3 08/09/2014 VIVEK HCAIDEZ MD E Ot 722.10 08/09/2014 VIVEK CHAIDEZ MD E Ot V57.89 08/12/2014 VIVEK CHAIDEZ MD E Ot 110.1 DERMATOPHYTOSIS OF NAIL 08/12/2014 VIVEK CHAIDEZ MD E Ot 250.00 08/12/2014 VIVEK CHAIDEZ MD Ot 250.60 DIAB W NEURO MANIFEST, TYPE II OR UNSPEC 08/12/2014 VIVEK CHAIDEZ MD E Ot 332.0 PARALYSIS AGITANS 08/12/2014 VIVEK CHAIDEZ MD E Ot 357.2 NEUROPATHY IN DIABETES 08/12/2014 VIVEK CHAIDEZ MD E Ot 401.9 HYPERTENSION NOS 08/12/2014 VIVEK CHAIDEZ MD E Ot 459.81 VENOUS INSUFFICIENCY NOS 08/12/2014 VIVEK CHAIDEZ MD Ot 593.9 RENAL URETERAL DIS NOS 08/12/2014 VIVEK CHAIDEZ MD E Ot 625.6 FEM STRESS INCONTINENCE 08/12/2014 VIVEK CHAIDEZ MD E Ot 707.12 ULCER OF CALF 08/12/2014 JENNIE CHAIDEZ MDIC E Ot 719.46 JOINT PAIN-L/LEG 08/12/2014 VIVEK CHAIDEZ MD E Ot 721.3 LUMBOSACRAL SPONDYLOSIS 08/12/2014 VIVEK CHAIDEZ MD E Ot 722.10 LUMBAR DISC DISPLACEMENT 08/12/2014 VIVEK CHAIDEZ MD E Ot 781.2 ABNORMALITY OF GAIT 08/12/2014 VIVEK CHAIDEZ MD E Ot V57.89 REHABILITATION PROC NEC 08/29/2014 Ot 443.9 08/29/2014 Ot 707.10 09/05/2014 MIGUELINA DELEON MD Ot 250.80 DIAB W OTH SPEC MANIFEST, TYPE II OR UNS 09/05/2014 MIGUELINA DELEON MD Ot 440.23 ATHEROSCL [place] ARTER EXTREMITIES W ULC 09/05/2014 MIGUELINA DELEON MD Ot 459.31 CHRONIC VENOUS HYPERTEN W ULCER 09/05/2014 MIGUELINA DELEON MD Ot 707.12 ULCER OF CALF 01/03/2015 HUMA NICHOLAS MD Ot 721.3 01/03/2015 HUMA NICHOLAS MD Ot V58.69 01/03/2015 LORI ROMERO MD Ot 250.00 01/03/2015 LORI ROMERO MD Ot 285.9 01/03/2015 NICK ADEN, LORI A Ot 333.90 01/03/2015 NICK ADEN, LORI A Ot 401.9 01/03/2015 NICK ADEN, LORI A Ot 459.89 01/03/2015 NICK ADEN, LORI A Ot 728.87 01/03/2015 NICK ADEN, LORI A Ot 780.93 01/03/2015 NICK ADEN, LORI A Ot 782.3 01/03/2015 NICK ADEN, LORI A Ot 786.09 01/03/2015 NICK ADEN, LORI A Ot V10.3 01/03/2015 NICK ADEN, LORI A Ot V54.19 01/03/2015 NICK ADEN, LORI A Ot 272.4 01/03/2015 NICK ADEN, LORI A Ot 285.9 01/03/2015 NICK ADEN, LORI A Ot 333.90 01/03/2015 NICK ADEN, LORI A Ot 401.9 01/03/2015 NICK ADEN, LORI A Ot 780.79 01/03/2015 NICK ADEN, LORI A Ot 780.93 01/03/2015 NICK ADEN, LORI A Ot 782.3 01/03/2015 NICK ADEN, LORI A Ot 782.7 01/03/2015 NICK ADEN, LORI A Ot 786.09 01/03/2015 NICK ADEN, LORI A Ot V10.3 01/03/2015 NICK ADEN, LORI A Ot 401.9 01/03/2015 NICK ADEN, LORI A Ot V58.69 01/03/2015 Ot 443.9 01/03/2015 Ot 707.10 01/25/2015 PRECIOUS ERICKSON DIRECTOR MBA Ot 715.35 02/17/2015 PRECIOUS ERICKSON DIRECTOR MBA Ot 715.35 03/30/2015 HUMA NICHOLAS MD Ot M47.816 03/30/2015 HUMA NICHOLAS MD Ot M51.16 03/30/2015 HUMA NICHOLAS MD Ot M53.3 03/30/2015 HUMA NICHOLAS MD Ot Z79.899 04/25/2015 HUMA NICHOLAS MD Ot M47.816 04/25/2015 HUMA NICHOLAS MD Ot M51.16 04/25/2015 HUMA NICHOLAS MD Ot M53.3 04/25/2015 HUMA NICHOLAS MD Ot Z79.899 05/19/2015 HUMA NICHOLAS MD Ot M47.816 SPONDYLOSIS W/O MYELOPATHY OR RADICULOPA 05/19/2015 HUMA NICHOLAS MD Ot M51.16 INTERVERTEBRAL DISC DISORDERS W RADICULO 05/19/2015 HUMA NICHOLAS MD Ot M53.3 SACROCOCCYGEAL DISORDERS, NOT ELSEWHERE 05/19/2015 HUMA NICHOLAS MD Ot M70.61 TROCHANTERIC BURSITIS, RIGHT HIP 05/19/2015 HUMA NICHOLAS MD Ot Z79.899 OTHER JAIL (CURRENT) DRUG THERAPY 07/28/2015 Ot M47.816 SPONDYLOSIS W/O MYELOPATHY OR RADICULOPA 07/28/2015 Ot M51.16 INTERVERTEBRAL DISC DISORDERS W RADICULO 07/28/2015 Ot M53.3 SACROCOCCYGEAL DISORDERS, NOT ELSEWHERE 07/28/2015 Ot Z79.899 OTHER JAIL (CURRENT) DRUG THERAPY 08/07/2015 Ot M47.816 08/07/2015 Ot M51.16 08/07/2015 Ot M53.3 08/07/2015 Ot Z79.899 08/18/2015 HUMA NICHOLAS MD Ot M47.816 SPONDYLOSIS W/O MYELOPATHY OR RADICULOPA 08/18/2015 HUMA NICHOLAS MD Ot M51.16 INTERVERTEBRAL DISC DISORDERS W RADICULO 08/18/2015 HUMA NICHOLAS MD, Ot M53.3 SACROCOCCYGEAL DISORDERS, NOT ELSEWHERE 08/18/2015 HUMA NICHOLAS MD Ot M70.61 TROCHANTERIC BURSITIS, RIGHT HIP 08/18/2015 HUMA NICHOLAS MD Ot Z79.899 OTHER JAIL (CURRENT) DRUG THERAPY 08/29/2015 HUMA NICHOLAS MD Ot M47.816 SPONDYLOSIS W/O MYELOPATHY OR RADICULOPA 08/29/2015 HUMA NICHOLAS MD Ot M51.16 INTERVERTEBRAL DISC DISORDERS W RADICULO 08/29/2015 HUMA NICHOLAS MD Ot M53.3 SACROCOCCYGEAL DISORDERS, NOT ELSEWHERE 08/29/2015 HUMA NICHOLAS MD Ot M70.61 TROCHANTERIC BURSITIS, RIGHT HIP 08/29/2015 HUMA NICHOLAS MD Ot Z79.899 OTHER JAIL (CURRENT) DRUG THERAPY 10/20/2015 HUMA NICHOLAS MD Ot 721.3 LUMBOSACRAL SPONDYLOSIS 10/20/2015 HUMA NICHOLAS MD Ot V58.69 OTH MED,LT,CURRENT USE 10/20/2015 LORI ROMERO MD Ot 250.00 DIAB JASMINE WO COMPL, TYPE II OR UNSPEC TY 10/20/2015 LORI ROMERO MD Ot 285.9 ANEMIA NOS 10/20/2015 LORI ROMERO MD Ot 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 10/20/2015 LORI ROMERO MD Ot 401.9 HYPERTENSION NOS 10/20/2015 LORI ROMERO MD Ot 780.79 OTH MALAISE FATIGUE 10/20/2015 LORI ROMERO MD Ot 780.93 MEMORY LOSS 10/20/2015 LORI ROMERO MD Ot 782.3 EDEMA 10/20/2015 LORI ROMERO MD Ot 782.7 SPONTANEOUS ECCHYMOSES 10/20/2015 LORI ROMERO MD Ot 786.09 RESPIRATORY ABNORM NEC 10/20/2015 LORI ROMERO MD Ot V10.3 HX OF BREAST MALIGNANCY 10/20/2015 LORI ROMERO MD Ot 401.9 HYPERTENSION NOS 10/20/2015 LORI ROMERO MD Ot V58.69 OTH MED,LT,CURRENT USE 10/20/2015 Ot 443.9 PERIPH VASCULAR DIS NOS 10/20/2015 Ot 707.10 ULCER OF LOWER LIMB NOS 10/20/2015 DRE PRECIOUS Lon DIRECTOR MBA Ot 715.35 LOC OSTEOARTH NOS-PELVIS 10/20/2015 HUMA NICHOLAS MD Ot M47.816 SPONDYLOSIS W/O MYELOPATHY OR RADICULOPA 10/20/2015 HUMA NICHOLAS MD Ot M51.16 INTERVERTEBRAL DISC DISORDERS W RADICULO 10/20/2015 HUMA NICHOLAS MD, Ot M53.3 SACROCOCCYGEAL DISORDERS, NOT ELSEWHERE 10/20/2015 HUMA NICHOLAS MD Ot Z79.899 OTHER SUSTAINMENT LOGISTICS ANALYST (CURRENT) DRUG THERAPY 10/20/2015 HUMA NICHOLAS MD, Ot M53.3 SACROCOCCYGEAL DISORDERS, NOT ELSEWHERE 11/09/2015 HUMA NICHOLAS MD, Ot M53.3 SACROCOCCYGEAL DISORDERS, NOT ELSEWHERE 11/10/2015 HUMA NICHOLAS MD Ot M47.816 SPONDYLOSIS W/O MYELOPATHY OR RADICULOPA 11/10/2015 HUMA NICHOLAS MD Ot M51.16 INTERVERTEBRAL DISC DISORDERS W RADICULO 11/10/2015 HUMA NICHOLAS MD Ot M53.3 SACROCOCCYGEAL DISORDERS, NOT ELSEWHERE 12/05/2015 HUMA NICHOLAS MD Ot M47.816 SPONDYLOSIS W/O MYELOPATHY OR RADICULOPA 12/05/2015 HUMA NICHOLAS MD Ot M51.16 INTERVERTEBRAL DISC DISORDERS W RADICULO 12/05/2015 HUMA NICHOLAS MD, Ot M53.3 SACROCOCCYGEAL DISORDERS, NOT ELSEWHERE 03/18/2016 HUMA NICHOLAS MD Ot 721.3 LUMBOSACRAL SPONDYLOSIS 03/18/2016 HUMA NICHOLAS MD Ot V58.69 OTH MED,LT,CURRENT USE 03/18/2016 LORI ROMERO MD Ot 250.00 DIAB JASMINE WO COMPL, TYPE II OR UNSPEC TY 03/18/2016 LORI ROMERO MD Ot 285.9 ANEMIA NOS 03/18/2016 NICK MD, LORI A Ot 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 03/18/2016 LORI ROMERO MD Ot 401.9 HYPERTENSION NOS 03/18/2016 LORI ROMERO MD Ot 780.79 OTH MALAISE FATIGUE 03/18/2016 LORI ROMERO MD Ot 780.93 MEMORY LOSS 03/18/2016 LORI ROMERO MD Ot 782.3 EDEMA 03/18/2016 LORI ROMERO MD Ot 782.7 SPONTANEOUS ECCHYMOSES 03/18/2016 LORI ROMERO MD Ot 786.09 RESPIRATORY ABNORM NEC 03/18/2016 LORI ROMERO MD Ot V10.3 HX OF BREAST MALIGNANCY 03/18/2016 LORI ROMERO MD Ot 401.9 HYPERTENSION NOS 03/18/2016 LORI ROMERO MD Ot V58.69 OTH MED,LT,CURRENT USE 03/18/2016 Ot 443.9 PERIPH VASCULAR DIS NOS 03/18/2016 Ot 707.10 ULCER OF LOWER LIMB NOS 03/18/2016 PRECIOUS ERICKSON DIRECTOR MBA Ot 715.35 LOC OSTEOARTH NOS-PELVIS 03/18/2016 HUMA NICHOLAS MD Ot M47.816 SPONDYLOSIS W/O MYELOPATHY OR RADICULOPA 03/18/2016 HUMA NICHOLAS MD Ot M51.16 INTERVERTEBRAL DISC DISORDERS W RADICULO 03/18/2016 HUMA NICHOLAS MD Ot M53.3 SACROCOCCYGEAL DISORDERS, NOT ELSEWHERE 03/18/2016 HUMA NICHOLAS MD Ot Z79.899 OTHER JAIL (CURRENT) DRUG THERAPY 03/19/2016 JULIA BRANCH APRN Ot M25.552 PAIN IN LEFT HIP 03/19/2016 JULIA BRANCH ROTARY PLANER SET UP OPERATOR Ot R07.81 PLEURODYNIA 04/10/2016 JULIA BRANCH ROTARY PLANER SET UP OPERATOR Ot M25.552 PAIN IN LEFT HIP 04/10/2016 JULIA BRNACH ROTARY PLANER SET UP OPERATOR Ot R07.81 PLEURODYNIA 05/08/2016 JULIA BRANCH ROTARY PLANER SET UP OPERATOR Ot M25.552 PAIN IN LEFT HIP 05/08/2016 JULIA BRANCH ROTARY PLANER SET UP OPERATOR Ot R07.81 PLEURODYNIA 06/20/2016 SHIRA OAKES APRN Ot E11.9 TYPE 2 DIABETES MELLITUS WITHOUT COMPLIC 06/20/2016 SHIRA OAKES APRN Ot N28.9 DISORDER OF KIDNEY AND URETER, UNSPECIFI 06/20/2016 SHIRA OAKES APRN Ot N39.0 URINARY TRACT INFECTION, SITE NOT SPECIF 06/20/2016 SHIRA OAKES APRN Ot S49.91XA UNSP INJURY OF RIGHT SHOULDER AND UPPER 06/20/2016 SHIRA OAKES APRN Ot S79.912A UNSPECIFIED INJURY OF LEFT HIP, INITIAL 06/20/2016 SHIRA OAKES APRN Ot W18.11XA FALL FROM OR OFF TOILET W/O STRIKE AGAIN 06/20/2016 SHIRA OAKES APRN Ot Y92.121 BATHROOM IN GROUP HOME PLACE 06/20/2016 SHIRA OAKES APRN Ot Y99.8 OTHER EXTERNAL CAUSE STATUS 06/20/2016 SHIRA OAKES APRN Ot Z79.4 SUSTAINMENT LOGISTICS ANALYST (CURRENT) USE OF INSULIN 06/20/2016 SHIRA OAKES APRN Ot Z85.3 PERSONAL HISTORY OF MALIGNANT NEOPLASM O 06/20/2016 SHIRA OAKES APRN Ot Z90.12 ACQUIRED ABSENCE OF LEFT BREAST AND NIPP 06/21/2016 SHIRA OAKES APRN Ot E11.9 TYPE 2 DIABETES MELLITUS WITHOUT COMPLIC 06/21/2016 SHIRA OAKES APRN Ot N28.9 DISORDER OF KIDNEY AND URETER, UNSPECIFI 06/21/2016 SHIRA OAKES APRN Ot N39.0 URINARY TRACT INFECTION, SITE NOT SPECIF 06/21/2016 SHIRA OAKES APRN Ot S49.91XA UNSP INJURY OF RIGHT SHOULDER AND UPPER 06/21/2016 SHIRA OAKES APRN Ot S79.912A UNSPECIFIED INJURY OF LEFT HIP, INITIAL 06/21/2016 SHIRA OAKES APRN Ot W18.11XA FALL FROM OR OFF TOILET W/O STRIKE AGAIN 06/21/2016 SHIRA OAKES APRN Ot Y92.121 BATHROOM IN GROUP HOME PLACE 06/21/2016 SHIRA OAKES APRN Ot Y99.8 OTHER EXTERNAL CAUSE STATUS 06/21/2016 SHIRA OAKES APRN Ot Z79.4 JAIL (CURRENT) USE OF INSULIN 06/21/2016 SHIRA OAKES APRN Ot Z85.3 PERSONAL HISTORY OF MALIGNANT NEOPLASM O 06/21/2016 SHIRA OAKES APRN Ot Z90.12 ACQUIRED ABSENCE OF LEFT BREAST AND NIPP 06/21/2016 HUMA NICHOLAS MD Ot 721.3 LUMBOSACRAL SPONDYLOSIS 06/21/2016 HUMA NICHOLAS MD Ot V58.69 OTH MED,LT,CURRENT USE 06/21/2016 LORI ROMERO MD Ot 250.00 DIAB JASMINE WO COMPL, TYPE II OR UNSPEC TY 06/21/2016 LORI ROMERO MD Ot 285.9 ANEMIA NOS 06/21/2016 LORI ROMERO MD Ot 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 06/21/2016 LORI ROMERO MD Ot 401.9 HYPERTENSION NOS 06/21/2016 LORI ROMERO MD Ot 780.79 OTH MALAISE FATIGUE 06/21/2016 LORI ROMERO MD Ot 780.93 MEMORY LOSS 06/21/2016 LORI ROMERO MD Ot 782.3 EDEMA 06/21/2016 LORI ROMERO MD Ot 782.7 SPONTANEOUS ECCHYMOSES 06/21/2016 LORI ROMERO MD Ot 786.09 RESPIRATORY ABNORM NEC 06/21/2016 LORI ROMERO MD Ot V10.3 HX OF BREAST MALIGNANCY 06/21/2016 LORI ROMERO MD Ot 401.9 HYPERTENSION NOS 06/21/2016 LORI ROMERO MD Ot V58.69 OTH MED,LT,CURRENT USE 06/21/2016 Ot 443.9 PERIPH VASCULAR DIS NOS 06/21/2016 Ot 707.10 ULCER OF LOWER LIMB NOS 06/21/2016 PRECIOUS ERICKSON Ot 715.35 LOC OSTEOARTH NOS-PELVIS 06/21/2016 HUMA NICHOLAS MD Ot M47.816 SPONDYLOSIS W/O MYELOPATHY OR RADICULOPA 06/21/2016 HUMA NICHOLAS MD Ot M51.16 INTERVERTEBRAL DISC DISORDERS W RADICULO 06/21/2016 HUMA NICHOLAS MD Ot M53.3 SACROCOCCYGEAL DISORDERS, NOT ELSEWHERE 06/21/2016 HUMA NICHOLAS MD Ot Z79.899 OTHER JAIL (CURRENT) DRUG THERAPY 06/21/2016 JULIA BRANCH APRN Ot M25.552 PAIN IN LEFT HIP 06/21/2016 JULIA BRANCH APRN Ot R07.81 PLEURODYNIA 06/26/2016 JULIA BRANCH APRN Ot E55.9 VITAMIN D DEFICIENCY, UNSPECIFIED 06/29/2016 SHIRA OAKES APRN Ot E11.9 TYPE 2 DIABETES MELLITUS WITHOUT COMPLIC 06/29/2016 SHIRA OAKES APRN Ot N28.9 DISORDER OF KIDNEY AND URETER, UNSPECIFI 06/29/2016 SHIRA OAKES APRN Ot N39.0 URINARY TRACT INFECTION, SITE NOT SPECIF 06/29/2016 SHIRA OAKES APRN Ot S49.91XA UNSP INJURY OF RIGHT SHOULDER AND UPPER 06/29/2016 SHIRA OAKES APRN Ot S79.912A UNSPECIFIED INJURY OF LEFT HIP, INITIAL 06/29/2016 SHIRA OAKES APRN Ot W18.11XA FALL FROM OR OFF TOILET W/O STRIKE AGAIN 06/29/2016 SHIRA OAKES APRN Ot Y92.121 BATHROOM IN GROUP HOME PLACE 06/29/2016 SHIRA OAKES APRN Ot Y99.8 OTHER EXTERNAL CAUSE STATUS 06/29/2016 SHIRA OAKES APRN Ot Z79.4 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 SPINAL CANAL INJECT NEC 07/21/2014 81.92 INJECTION INTO JOINT 07/21/2014 99.23 INJECT STEROID 07/21/2014 99.29 INJECT/INFUSE NEC 07/21/2014 03.92 SPINAL CANAL INJECT NEC 08/04/2014 99.23 INJECT STEROID 08/04/2014 86.27 DEBRIDEMENT OF NAIL, NAIL BED OR NAIL FO 08/10/2014 Results Test Result Range Complete urinalysis with reflex to culture - 06/20/16 09:20 Urine color determination YELLOW NRG Urine clarity determination SLIGHTLY CLOUDY NRG Urine pH measurement by test strip 5 5-9 Specific gravity of urine by test strip 1.020 1.016- 1.022 Urine protein assay by test strip, semi-quantitative 3+ NEGATIVE Urine glucose detection by automated test strip 2+ NEGATIVE Erythrocytes detection in urine sediment by light microscopy 5+ NEGATIVE Urine ketones detection by automated test strip 1+ NEGATIVE Urine nitrite detection by test strip NEGATIVE NEGATIVE Urine total bilirubin detection by test strip NEGATIVE NEGATIVE Urine urobilinogen measurement by automated test strip (mass/volume) NORMAL NORMAL Urine leukocyte esterase detection by dipstick 3+ NEGATIVE Automated urine sediment erythrocyte count by microscopy (number/high power field) NONE NRG Automated urine sediment leukocyte count by microscopy (number/high power field ) [HPF] NRG Bacteria detection in urine sediment by light microscopy FEW NRG Squamous epithelial cells detection in urine sediment by light microscopy 5-10 NRG Crystals detection in urine sediment by light microscopy NONE NRG Casts detection in urine sediment by light microscopy PRESENT NRG Mucus detection in urine sediment by light microscopy NEGATIVE NRG Complete urinalysis with reflex to culture YES NRG Amorphous sediment detection in urine sediment by light microscopy MOD NOMI URATES NRG Other elements identification in urine sediment by light microscopy RARE TRANS EPI NRG Coarse granular casts detection in urine sediment by light microscopy 25-50 NRG Bacterial urine culture - 06/20/16 09:20 Bacterial urine culture [id number] NRG COLONY COUNT 10,000/ML - 100,000/ML NRG FTX;REPORTABLE (NONENTEROCOCCUS T NOT GROUP D STREP) NRG Complete blood count (CBC) with automated white blood cell (WBC) differential - 06/20/16 11:35 Blood leukocytes automated count (number/volume) 8.9 10*3/uL 4.3-11.0 Blood erythrocytes automated count (number/volume) 4.34 10*6/uL 4.35-5.85 Venous blood hemoglobin measurement (mass/volume) 12.6 g/dL 11.5-16.0 Blood hematocrit (volume fraction) 39 % 35-52 Automated erythrocyte mean corpuscular volume 89 [foz_us] 80-99 Automated erythrocyte mean corpuscular hemoglobin (mass per erythrocyte) 29 pg 25-34 Automated erythrocyte mean corpuscular hemoglobin concentration measurement ( mass/volume) 33 g/dL 32-36 Automated erythrocyte distribution width ratio 14.2 % 10.0-14.5 Automated blood platelet count (count/volume) 183 10*3/uL 130-400 Automated blood platelet mean volume measurement 11.1 [foz_us] 7.4-10.4 Automated blood neutrophils/100 leukocytes 68 % 42-75 Automated blood lymphocytes/100 leukocytes 21 % 12-44 Blood monocytes/100 leukocytes 9 % 0-12 Automated blood eosinophils/100 leukocytes 1 % 0-10 Automated blood basophils/100 leukocytes 1 % 0-10 Blood neutrophils automated count (number/volume) 6.1 10*3 1.8-7.8 Blood lymphocytes automated count (number/volume) 1.8 10*3 1.0-4.0 Blood monocytes automated count (number/volume) 0.8 10*3 0.0-1.0 Automated eosinophil count 0.1 10*3/uL 0.0-0.3 Automated blood basophil count (count/volume) 0.0 10*3/uL 0.0-0.1 Comprehensive metabolic panel - 06/20/16 11:35 Serum or plasma sodium measurement (moles/volume) 136 mmol/L 135-145 Serum or plasma potassium measurement (moles/volume) 4.7 mmol/L 3.6-5.0 Serum or plasma chloride measurement (moles/volume) 102 mmol/L 98-107 Carbon dioxide 25 mmol/L 21-32 Serum or plasma anion gap determination (moles/volume) 9 mmol/L 5-14 Serum or plasma urea nitrogen measurement (mass/volume) 38 mg/dL 7-18 Serum or plasma creatinine measurement (mass/volume) 1.76 mg/dL 0.60-1.30 Serum or plasma urea nitrogen/creatinine mass ratio 22 NRG Serum or plasma creatinine measurement with calculation of estimated glomerular filtration rate 28 NRG Serum or plasma glucose measurement (mass/volume) 155 mg/dL 70-105 Serum or plasma calcium measurement (mass/volume) 8.8 mg/dL 8.5-10.1 Serum or plasma total bilirubin measurement (mass/volume) 0.4 mg/dL 0.1-1.0 Serum or plasma alkaline phosphatase measurement (enzymatic activity/volume) 127 U/L 40-136 Serum or plasma aspartate aminotransferase measurement (enzymatic activity/ volume) 190 U/L 5-34 Serum or plasma alanine aminotransferase measurement (enzymatic activity/volume ) 16 U/L 0-55 Serum or plasma protein measurement (mass/volume) 6.7 g/dL 6.4-8.2 Serum or plasma albumin measurement (mass/volume) 3.6 g/dL 3.2-4.5 Complete urinalysis with reflex to culture - 11/13/16 11:45 Urine color determination YELLOW NRG Urine clarity determination SLIGHTLY CLOUDY NRG Urine pH measurement by test strip 5 5-9 Specific gravity of urine by test strip 1.010 1.016- 1.022 Urine protein assay by test strip, semi-quantitative NEGATIVE NEGATIVE Urine glucose detection by automated test strip NEGATIVE NEGATIVE Erythrocytes detection in urine sediment by light microscopy NEGATIVE NEGATIVE Urine ketones detection by automated test strip NEGATIVE NEGATIVE Urine nitrite detection by test strip NEGATIVE NEGATIVE Urine total bilirubin detection by test strip NEGATIVE NEGATIVE Urine urobilinogen measurement by automated test strip (mass/volume) NORMAL NORMAL Urine leukocyte esterase detection by dipstick 2+ NEGATIVE Automated urine sediment erythrocyte count by microscopy (number/high power field) NONE NRG Automated urine sediment leukocyte count by microscopy (number/high power field ) [HPF] NRG Bacteria detection in urine sediment by light microscopy TRACE NRG Squamous epithelial cells detection in urine sediment by light microscopy 2-5 NRG Crystals detection in urine sediment by light microscopy NONE NRG Casts detection in urine sediment by light microscopy NONE NRG Mucus detection in urine sediment by light microscopy NEGATIVE NRG Complete urinalysis with reflex to culture YES NRG Bacterial urine culture - 11/13/16 11:45 URINE CULTURE RESULTS <10,000/ML NRG Complete blood count (CBC) with automated white blood cell (WBC) differential - 11/13/16 12:04 Blood leukocytes automated count (number/volume) 6.3 10*3/uL 4.3-11.0 Blood erythrocytes automated count (number/volume) 4.44 10*6/uL 4.35-5.85 Venous blood hemoglobin measurement (mass/volume) 12.7 g/dL 11.5-16.0 Blood hematocrit (volume fraction) 40 % 35-52 Automated erythrocyte mean corpuscular volume 91 [foz_us] 80-99 Automated erythrocyte mean corpuscular hemoglobin (mass per erythrocyte) 29 pg 25-34 Automated erythrocyte mean corpuscular hemoglobin concentration measurement ( mass/volume) 32 g/dL 32-36 Automated erythrocyte distribution width ratio 14.0 % 10.0-14.5 Automated blood platelet count (count/volume) 163 10*3/uL 130-400 Automated blood platelet mean volume measurement 10.9 [foz_us] 7.4-10.4 Automated blood neutrophils/100 leukocytes 62 % 42-75 Automated blood lymphocytes/100 leukocytes 26 % 12-44 Blood monocytes/100 leukocytes 8 % 0-12 Automated blood eosinophils/100 leukocytes 4 % 0-10 Automated blood basophils/100 leukocytes 1 % 0-10 Blood neutrophils automated count (number/volume) 3.9 10*3 1.8-7.8 Blood lymphocytes automated count (number/volume) 1.7 10*3 1.0-4.0 Blood monocytes automated count (number/volume) 0.5 10*3 0.0-1.0 Automated eosinophil count 0.2 10*3/uL 0.0-0.3 Automated blood basophil count (count/volume) 0.0 10*3/uL 0.0-0.1 Comprehensive metabolic panel - 11/13/16 12:04 Serum or plasma sodium measurement (moles/volume) 137 mmol/L 135-145 Serum or plasma potassium measurement (moles/volume) 4.6 mmol/L 3.6-5.0 Serum or plasma chloride measurement (moles/volume) 101 mmol/L 98-107 Carbon dioxide 27 mmol/L 21-32 Serum or plasma anion gap determination (moles/volume) 9 mmol/L 5-14 Serum or plasma urea nitrogen measurement (mass/volume) 26 mg/dL 7-18 Serum or plasma creatinine measurement (mass/volume) 0.97 mg/dL 0.60-1.30 Serum or plasma urea nitrogen/creatinine mass ratio 27 NRG Serum or plasma creatinine measurement with calculation of estimated glomerular filtration rate 55 NRG Serum or plasma glucose measurement (mass/volume) 132 mg/dL 70-105 Serum or plasma calcium measurement (mass/volume) 8.8 mg/dL 8.5-10.1 Serum or plasma total bilirubin measurement (mass/volume) 0.5 mg/dL 0.1-1.0 Serum or plasma alkaline phosphatase measurement (enzymatic activity/volume) 82 U/L 40-136 Serum or plasma aspartate aminotransferase measurement (enzymatic activity/ volume) 34 U/L 5-34 Serum or plasma alanine aminotransferase measurement (enzymatic activity/volume ) 9 U/L 0-55 Serum or plasma protein measurement (mass/volume) 6.9 g/dL 6.4-8.2 Serum or plasma albumin measurement (mass/volume) 3.8 g/dL 3.2-4.5 Encounters ACCT No. Visit Date/Time Discharge Status Pt. Type Provider Facility Loc./Unit Complaint [id number] 11/13/2016 11:15:00 11/13/2016 23:59:59 CLS Outpatient JULIA BRANCH ROTARY PLANER SET UP OPERATOR [facility] RAD FALL,ANKLE PAIN,EDEMA ,CONFUSION [id number] 06/20/2016 11:23:00 06/20/2016 23:59:59 CLS Outpatient JULIA BRANCH ROTARY PLANER SET UP OPERATOR [facility] LABNPT VIT D DEFICIENCY [id number] 06/20/2016 09:49:00 06/20/2016 14:40:00 DIS Emergency OAKESSHIRA ROTARY PL[employer]ER SET UP OPERATOR [facility] ER FALL/LEFT HIP PAIN ELEV BP CONFUSION [id number] 03/18/2016 14:13:00 03/18/2016 23:59:59 CLS Outpatient JULIA BRANCH APRN [facility] RAD LEFT RIB PAIN,LEFT HIP PAIN [id number] 11/10/2015 11:33:00 11/10/2015 12:41:00 DIS Outpatient HUMA NICHOLAS MD [facility] CARD SACROCOCCYGEAL DISORDER [id number] 10/20/2015 09:29:00 10/20/2015 10:48:00 DIS Outpatient HUMA NICHOLAS MD [facility] CARD SACROCOCCYGEAL DISORDERS [id number] 08/18/2015 08:56:00 08/18/2015 09:48:00 DIS Outpatient HUMA NICHOLAS MD [facility] CARD SACROCOCCYGEAL DISORDER [id number] 05/19/2015 09:13:00 05/19/2015 09:55:00 DIS Outpatient HUMA NICHOLAS MD [facility] CARD SPONDYLOSIS [id number] 03/03/2015 10:45:00 03/03/2015 23:59:59 CLS Outpatient HUMA NICHOLAS MD [facility] CARD SPONDYLOSIS [id number] 01/03/2015 11:25:00 01/03/2015 23:59:59 CLS Outpatient PRECIOUS ERICKSON [facility] RAD PAIN-R HIP [id number] 07/15/2014 08:08:00 09/05/2014 10:30:00 DIS Outpatient ADRIENNE ADEN, MIGUELINA Tariq [facility] WOUNDCARE [id number] 07/25/2014 11:49:00 08/12/2014 14:00:00 DIS Inpatient KAYLYNN ADEN, VIVEK Lopez [facility] IRF DEBILITY [id number] 07/19/2014 16:30:00 07/25/2014 10:50:00 DIS Inpatient LORI ROMERO MD [facility] 4TH UNCONTROLLED PAIN-EDEMA- CELLULITIS [id number] 05/09/2014 11:53:00 05/09/2014 23:59:59 CLS Outpatient LORI ROMERO MD [facility] LAB HTN,SUSTAINMENT LOGISTICS ANALYST MED USE [id number] 05/09/2014 10:46:00 05/09/2014 11:06:00 DIS Emergency TONY CHOI DO [facility] ER STAPLE REMOVAL [id number] 04/29/2014 15:05:00 04/29/2014 17:25:00 DIS Emergency KAREN JOHNSON MD [facility] ER LEFT LEG WOUND [id number] 03/28/2014 12:52:00 03/28/2014 23:59:59 CLS Outpatient LORI ROMERO MD [facility] CARD HTN,DM,HLP,MEMORY LOSS [id number] 03/18/2014 13:16:00 03/18/2014 23:59:59 CLS Outpatient LORI ROMERO MD [facility] RAD HTN ,DM, HYPERLIPADEMIA,MEMORY LOSS EDEMA [id number] 02/21/2014 12:28:00 02/21/2014 13:36:00 DIS Outpatient HUMA NICHOLAS MD [facility] CARD SIJD [id number] 02/04/2014 08:03:00 02/04/2014 23:59:59 CLS Outpatient HUMA NICHOLAS MD [facility] CARD LUMBAR SPONDYLOSIS [id number] 08/03/2015 08:59:00 Document Registration [id number] 07/15/2014 10:57:00 Document Registration [id number] 09/19/2010 10:11:00 Document Registration
[2017-07-29 20:20] VITALS: BP 168/75
[2017-07-29] MEDS ORDERED: CATHETER FLUSH 10 ML SYR IV PRN (21:30)
[2017-07-29] MEDS ORDERED: ACETAMINOPHEN 325 MG TABLET/CAPLET (TYLENOL) PO PRN (21:30)
[2017-07-29] MEDS: CATHETER FLUSH 10 ML SYR IV SCH (22:03)
[2017-07-29] MEDS: NS IV 1000 ML 1,000 ML IV SCH (22:43)
[2017-07-30] MEDS: SINEMET 25/100 (CARBIDOPA/LEVODOPA) TAB PO SCH ×5 (00:29→23:07)
[2017-07-30 01:20] VITALS: BP 156/68
[2017-07-30] MEDS: NS IV 1000 ML 1,000 ML IV SCH ×2 (05:12→22:43)
[2017-07-30] MEDS: CATHETER FLUSH 10 ML SYR IV SCH ×3 (05:13→20:54)
[2017-07-30 06:36] LABS: BASOPHILS % (AUTO) 1 % (0-10); EOSINOPHILS # (AUTO) 0.1 10^3/uL (0.0-0.3); EOSINOPHILS % (AUTO) 2 % (0-10); HEMATOCRIT 36 % (35-52); HEMOGLOBIN 11.5 G/DL (11.5-16.0); LYMPHOCYTES # (AUTO) 1.3 X 10^3 (1.0-4.0); LYMPHOCYTES % (AUTO) 23 % (12-44); MEAN CORPUSCULAR HEMOGLOBIN 29 PG (25-34); MEAN CORPUSCULAR HGB CONC 32 G/DL (32-36); MEAN CORPUSCULAR VOLUME 91 FL (80-99); MEAN PLATELET VOLUME 11.2 FL (7.4-10.4); MONOCYTES # (AUTO) 0.7 X 10^3 (0.0-1.0); MONOCYTES % (AUTO) 11 % (0-12); NEUTROPHILS # (AUTO) 3.7 X 10^3 (1.8-7.8); NEUTROPHILS % (AUTO) 63 % (42-75); PLATELET COUNT 162 10^3/uL (130-400); RED BLOOD COUNT 3.96 10^6/uL (4.35-5.85); RED CELL DISTRIBUTION WIDTH 13.5 % (10.0-14.5); WHITE BLOOD COUNT 5.9 10^3/uL (4.3-11.0)
[2017-07-30 07:07] LABS: BUN/CREATININE RATIO 27; CALCIUM 8.4 MG/DL (8.5-10.1); CARBON DIOXIDE 25 MMOL/L (21-32); CHLORIDE 108 MMOL/L (98-107); GFR ESTIMATED > 60; GLUCOSE 66 MG/DL (70-105); POTASSIUM 3.8 MMOL/L (3.6-5.0); SODIUM 140 MMOL/L (135-145)
[2017-07-30 08:00] VITALS: BP 179/79
[2017-07-30] MEDS: PRAMIPEXOLE 0.5 MG TAB (MIRAPEX) PO SCH ×3 (08:50→20:53)
[2017-07-30] MEDS ORDERED: GABAPENTIN 100 MG (NEURONTIN) CAP PO SCH ×2 (09:00→21:00)
--- NOTE | 2017-07-30 09:09 | History & Physicial ---
History of Present Illness History of Present Illness Reason for visit/HPI PT IS AN 82 Y/O FEMALE WHO IS KNOWN TO ME FROM CLINIC. SHE HAS DIABETES MELLITUS - INSULIN DEPENDENT - HAS PERIPHERAL NEUROPATHY WELL PARKINSON'S DISEASE. SHE HAS BEEN HAVING FALLS OR NEAR FALLS AT HER ASSISTED LIVING FACILITY - SEVERAL OF WHICH HAVE BEEN WITNESSED BY NURSING STAFF - PT WILL BE STANDING UP- THEN HER LEGS SEEM TO GIVE WAY WITH PT STATING THAT HER LEGS FEEL WEAK. SHE DOES NOT LOOSE CONSCIOUSNESS, BUT HAS LOSS OF STRENGTH AND WILL CRUMPLE TO THE GROUND. SHE PRESENTED TO THE ER LAST NIGHT WITH RECURRENT FALL - AND WAS NOTED TO BE NOTICEABLY WEAK - SHE WAS ADMITTED FOR OBSERVATION, PT EVAL AND MEDICATION CHANGES. Date of Admission Jul 29, 2017 at 19:10 Date Seen by Provider: Jul 30, 2017 Time Seen by Provider: 08:45 I consulted on this patient on 07/30/17 09:03 Attending Physician Lori Islas MD Admitting Physician Lori Islas MD Consult Allergies and Home Medications Allergies Coded Allergies: morphine (Verified Allergy, Unknown, 12/14/07) Home Medications Amoxicillin 500 Mg Capsule, 2,000 MG PO UD PRN for DENTAL APPOINTMENT , ( Reported) TAKE 4 (500MG) CAPSULES 1 HOUR BEFORE DENTAL APPOINTMENT Capsaicin 42.5 Gm Cream..g., TP QID, (Reported) Carbidopa/Levodopa 1 Each Tablet, 2 TAB PO QID, (Reported) Carboxymethyl/Glycerin/Poly80 10 Ml Drops, 1 DROP OU TID, (Reported) Cyanocobalamin (Vitamin B-12) 5,000 Mcg Tab.subl, 5,000 MCG SL DAILY, (Reported) Diclofenac Sodium 100 Gm Gel..gram., 4 GM TP QID, (Reported) Eyelid Cleanser Comb No.7 50 Ml Foam..ml., TP BID, (Reported) Fentanyl 1 Each Patch.td72, 25 MCG TD Q72H, (Reported) Fentanyl 12 Mcg Patch, 12 MCG TD Q72H, (Reported) Gabapentin 100 Mg Capsule, 100 MG PO DAILY, (Reported) Gabapentin 300 Mg Capsule, 300 MG PO BID, (Reported) Hydrocodone Bit/Acetaminophen 1 Tab Tab, 1 TAB PO Q4H PRN for PAIN-MODERATE, ( Reported) Insulin Glargine,Hum.rec.anlog 100 Unit/1 Ml Vial, 30 UNIT SQ DAILY, (Reported) Losartan Potassium 50 Mg Tablet, 50 MG PO DAILY, (Reported) Memantine HCl 10 Mg Tablet, 10 MG PO BID, (Reported) Multivitamin 1 Each Tablet, 1 TAB PO DAILY, (Reported) Naproxen Sodium 220 Mg Tablet, 220 MG PO BID PRN for PAIN-MILD, (Reported) Nystatin 60 Gm Powder, TP TID PRN for REDNESS, (Reported) Pramipexole Di-HCl 1 Mg Tablet, 1 MG PO TID, (Reported) Sennosides 8.6 Mg Tablet, 2 TAB PO DAILY, (Reported) Sennosides 8.6 Mg Tablet, 8.6 MG PO DAILY PRN for CONSTIPATION-5TH LINE, ( Reported) Solifenacin Succinate 5 Mg Tablet, 5 MG PO DAILY, (Reported) Trazodone HCl 50 Mg Tablet, 50 MG PO HS, (Reported) Patient Home Medication List Home Medication List Reviewed: Yes Past Axiekyq-Hvlkav-Wxiqja Hx Patient Social History Marrital Status: Living Status: LIVES AT [facility] Employed/Student: retired Alcohol Use: Denies Use Recreational Drug Use: No Smoking Status: Never a Smoker 2nd Hand Smoke Exposure: No Physical Abuse Screen: No Sexual Abuse: No Recent Foreign Travel: No Contact w/other who traveled: No Recent Hopitalizations: No Recent Infectious Disease Expo: No Immunizations Up To Date Tetanus Booster (TDap): Less than 5yrs Date of Influenza Vaccine: Feb 24, 2014 Seasonal Allergies Seasonal Allergies: No Surgeries Yes (Left Mastectomy, Left knee replacement x 2, Left knee repairs) Orthopedic Respiratory No Cardiovascular Yes Hypertension Neurological Yes (Benign tremor) Parkinson's Disease Reproductive System Hx Reproductive Disorders: No Genitourinary Yes (URINARY INCONTINENCE) Gastrointestinal No Musculoskeletal Yes Arthritis, Chronic Back Pain Endocrine History of Endocrine Disorders: Yes ( DM Type II) Endocrine Disorders: Diabetes, Insulin dep HEENT History of HEENT Disorders: Yes HEENT Disorders: Cataract Hearing Impairment: Denies Cancer Yes (left breast mastectomy) Breast Did You Recieve Any Treatments: Yes Type of Treatment: Surgical Intervention Psychosocial History of Psychiatric Problem: No Integumentary History of Skin or Integumenta: Yes (lt calf venous insufficiency) Blood Transfusions History of Blood Disorders: No Adverse Reaction to a Blood Tr: No Reviewed Nursing Assessment Reviewed/Agree w Nursing PMH: Yes Family Medical History Significant Family History: Heart Disease, Cancer, Diabetes, Hypertension Family Hx: Cardiovascular disease G8 BROTHER G8 BROTHER Diabetes mellitus 19 FATHER G8 BROTHER G8 BROTHER G8 SISTER FH: cancer G8 BROTHER Myocardial infarction 19 MOTHER Constitutional: No fever, No malaise, weakness EENTM: No hoarseness, No throat pain Respiratory: No cough, No dyspnea on exertion, No short of breath, No wheezing Cardiovascular: No chest pain, edema, No palpitations Gastrointestinal: No abdominal pain, No constipation, No diarrhea, No nausea Genitourinary: incontinence Musculoskeletal: No back pain, joint pain, No muscle twitching, muscle weakness Skin: No change in color, No lesions Psychiatric/Neurological: Denies Anxiety, Denies Depressed, Tremors, Weakness All Other Systems Reviewed Negative Unless Noted: Yes Physical Exam Vital Signs Vital Signs - First Documented 07/29/17 07/29/17 15:48 15:51 Temp 98.0 Pulse 70 Resp 16 B/P (MAP) 167/66 (99) Pulse Ox 98 O2 Delivery Room Air Capillary Refill : Less Than 3 Seconds General Appearance: No Apparent Distress, WD/WN Eyes: Bilateral Eye Normal Inspection, Bilateral Eye PERRL, Bilateral Eye EOMI HEENT: PERRL/EOMI, Pharynx Normal Neck: Full Range of Motion, Supple Respiratory: Chest Non Tender, Lungs Clear, Normal Breath Sounds, No Accessory Muscle Use Cardiovascular: Regular Rate, Rhythm Gastrointestinal: Normal Bowel Sounds, Non Tender, Soft Rectal: Deferred Extremity: Pedal Edema ( TO MID CALVES - WITH EXTENSIVE SURGICAL SCARING ON LEFT KNEE) Neurologic/Psychiatric: Alert, Oriented x3, Normal Mood/Affect, chief recordist II-XII Norm as Tested Skin: Normal Color, Warm/Dry Lymphatic: No Adenopathy Assessment/Plan Assessment and Plan GAIT INSTABILITY FALLING AT ASSISTED LIVING DIABETES PARKINSON'S DISEASE DIABETES MELLITUS CHRONIC PAIN SYNDROME HYPERTENSION GAIT INSTABILITY DUE TO PARKINSON'S DISEASE - WITH MULTIPLE FALLS AT HER ASSISTED LIVING FACILITY (VIA [facility], [place]) - I HAVE REVIEWED HER MEDICATIONS AND WILL DECREASE THE DOSE OF HER NEURONTIN FROM 400MG am AND 300MG hs TO 100MG 0900, 100MG 1300, AND 200MG HS TO SEE IF THIS HELPS TO DECREASE SOME OF THE WEAKNESS AND GROGGINESS THAT MAY BE CONTRIBUTING TO HER FALLING. IF THE CHANGE OF THE MEDICATION DOES NOT HELP HER SYMPTOMS, THE NEXT STEP IS TO DECREASE THE DOSE OF FENTANYL FROM 37MCG TO 25MCG PATCH/72 HRS. I HAVE ALSO ORDERED PHYSICAL THERAPY EVAL AND TREAT - WHICH WE WILL CONTINUE ON DISCHARGE FOR STRENGTHENING AT HER ASSISTED LIVING FACILITY. DIABETES MELLITUS - RESUME HOME MEDICATIONS, DIABETIC DIET. CHRONIC PAIN SYNDROME - PT CURRENTLY ON FENTANYL PATCHES 12MCG AND 25MCG PATCHES - CONTINUE CURRENT MANAGEMENT AT THIS TIME, BUT DECREASE NEURONTIN DESCRIBED ABOVE. HYPERTENSION - RESUME LOSARTAN DOSING - MONITOR PRESSURE. DVT PROPHYLAXIS - WILL START ON LOVENOX INJECTION AND SCD'S WHILE IN HOSPITAL. GI PROPHYLAXIS WITH PEPCID ORALLY. Problems: Admission Diagnosis GAIT INSTABILITY FALLING AT ASSISTED LIVING DIABETES PARKINSON'S DISEASE DIABETES MELLITUS CHRONIC PAIN SYNDROME HYPERTENSION Admission Status: Observation Clinical Quality Measures DVT/VTE Risk/Contraindication: Risk Factor Score Per Nursin RFS Level Per Nursing on Admit: 4+=Very High LORI ISLAS MD Jul 30, 2017 09:09
[2017-07-30] MEDS ORDERED: MEMA10TA22 PO (09:11)
[2017-07-30] MEDS ORDERED: NAPR-1033 PO (09:11)
[2017-07-30] MEDS ORDERED: FEN12TD TD (09:11)
[2017-07-30] MEDS ORDERED: GABA-486 PO (09:11)
[2017-07-30] MEDS ORDERED: ACHD5005 PO (09:11)
[2017-07-30] MEDS ORDERED: DICL100G18 TP (09:11)
[2017-07-30] MEDS ORDERED: SENN-140 PO (09:11)
[2017-07-30] MEDS ORDERED: CAPS42.58 TP (09:11)
[2017-07-30] MEDS ORDERED: INSU100V6 SQ (09:11)
[2017-07-30] MEDS ORDERED: FENT1PAT57 TD (09:11)
[2017-07-30] MEDS ORDERED: PRAM1TAB2 PO (09:11)
[2017-07-30] MEDS ORDERED: NYST60PO TP (09:11)
[2017-07-30] MEDS ORDERED: CARB10DR OU (09:11)
[2017-07-30] MEDS ORDERED: LOSA50TA36 PO (09:11)
[2017-07-30] MEDS ORDERED: NF-SOLIF5T PO (09:11)
[2017-07-30] MEDS ORDERED: MULT-35 PO (09:11)
[2017-07-30] MEDS ORDERED: AMOX500C2 PO (09:11)
[2017-07-30] MEDS ORDERED: CYAN5000 SL (09:11)
[2017-07-30] MEDS ORDERED: [UNRECOGNIZED DRUG - CODE] TP (09:11)
[2017-07-30] MEDS ORDERED: GABA-488 PO (09:11)
[2017-07-30] MEDS ORDERED: CARB1TAB19 PO (09:11)
[2017-07-30] MEDS ORDERED: TRAZ-28 PO (09:11)
[2017-07-30] MEDS ORDERED: SOLIFENACIN 5 MG TAB (VESICARE) NON-FORMULARY PO SCH (09:30)
[2017-07-30] MEDS ORDERED: LOSARTAN 50 MG (COZAAR) TAB PO SCH (09:30)
[2017-07-30] MEDS ORDERED: NAPROXEN SODIUM 220 MG PO PRN (09:30)
[2017-07-30] MEDS ORDERED: NAPROXEN 250 MG (NAPROSYN) TABLET PO PRN (09:45)
[2017-07-30] MEDS: inSUlin ASPART (NovoLOG) 1 UNIT/0.01 ML (CHARGE PER UNIT) SC SCH ×3 (11:55→21:07)
[2017-07-30 12:00] VITALS: BP 179/79
[2017-07-30] MEDS: GABAPENTIN 100 MG (NEURONTIN) CAP PO SCH ×2 (12:02→14:08)
[2017-07-30] MEDS: SENNOSIDES 8.6 MG (SENOKOT) TAB PO SCH (12:02)
[2017-07-30] MEDS: DICLOFENAC 1% GEL 100 GM (VOLTAREN) TUBE TP SCH ×3 (12:03→20:53)
[2017-07-30] MEDS ORDERED: NON-FORMULARY MEDICATION 1 EA EA (Carboxymethyl/Glycerin/Poly80 (Refresh Optive Advanced D OU SCH (13:00)
[2017-07-30] MEDS: ARTIFICAL TEARS 0.4 ML UNIT DOSE (REFRESH PLUS) OU SCH ×2 (14:08→20:53)
--- NOTE | 2017-07-30 15:35 | Physical Therapy Evaluation ---
PT Evaluation-General Medical Diagnosis Admission Date Jul 29, 2017 at 21:09 Medical Diagnosis: UTI Onset Date: Jul 29, 2017 Therapy Diagnosis Therapy Diagnosis: weakness; abn gait Height/Weight Height (Feet): 5 Height (Inches): 1.00 Weight (Pounds): 170 Weight (Ounces): 0.0 Precautions Precautions/Isolations: Fall Prevention, Standard Precautions Referral Physician: Janel Reason for Referral: Evaluation/Treatment Medical History Pertinent Medical History: Breast CA S/P Mastectomy, DM, HTN, Parkinson's Additional Medical History TKR left, peripheral neuropathy, recent falls Current History Admitted with recent falls and decreased mobility. Also found to have a UTI. Reviewed History: Yes Social History Home: Assisted Living Current Living Status: Alone Entry Into Home: Level Entry Prior/Core FIM Prior Level of Function Functional Ralls Measure 0=Not Assessed/NA 4=Minimal Assistance 1=Total Assistance 5=Supervision or Setup 2=Maximal Assistance 6=Modified Ralls 3=Moderate Assistance 7=Complete Ralls Bed Mobility: 6 Transfers (B,C,W/C) (FIM): 6 Gait: 6 (4 WW) PT Evaluation-Current Subjective Agreeable to PT. Reports she is having difficulty with mobility and falls. Pain Numeric Pain Scale: 6 Location: Left Location Body Site: Hip Pain Description: Acute, Sharp Comment: Painful with movement. Pt/Family Goals Return to [facility] Objective Patient Orientation: Person, Place, Time, Situation Problem Solving: Fair Attachments: IV ROM/Strength ROM Lower Extremities ROM is functional but limited due to decreased active movement and soft tissue limits. Pt is stiff with movement. Strength Lower Extremities Strength is grossly 3/5 throughout Integumentary/Posture Integumentary Refer to nursing notes; B lower legs are reddened. Bowel Incontinence: Yes Bladder Incontinence: Yes Posture Forward flexed at hips, head down and rounded shoulders in standing. Neuromuscular (Tone, Coordination, Reflexes) Decreased coordination B LE's; no abnormal tone noted; reflexes intact Sensory Vision: Functional Hearing: Functional Hand Dominance: Right Sensation Right Lower Extremit: Intact Sensation Left Lower Extremity: Intact Transfers Functional Ralls Measure 0=Not Assessed/NA 4=Minimal Assistance 1=Total Assistance 5=Supervision or Setup 2=Maximal Assistance 6=Modified Ralls 3=Moderate Assistance 7=Complete Ralls Transfers (B, C, W/C) (FIM): 2 Supine to/from Sit: 2 Sit to/from Stand: 3 Pt took 8-10 small shuffled steps with FWW forward flexed and poor foot clearance and step length to transfer to sit up in the chair. Very slow with all movement. Pt tranferred sit to stand multiple times to scoot back in the chair but was ineffective in getting further back, dep of 2 to scoot her back in the chair. Feet elevated post treatmeht. Gait Mode of Locomotion: Walk Anticipated Mode of Locomotion: Walk Gait (FIM): 2 Distance (FIM): 1=up to 49 ft Distance: short distance of shuffled steps only, as described above. Gait Assistive Device: FWW Balance Sitting Static: Good Sitting Dynamic: Good Standing Static: Good Standing Dynamic: Fair Assessment/Needs Pt presents with sig limited functional mobility with difficulty effectively ambulating to transfer to the chair. Difficulty initiating movement to transfer in bed, to stand or to ambulate. She is also limited by complaints of left hip pain with movement. She will benefit from skilled PT intervention to work on functional mobility as her PLOF was residing in an JANNIE. She may take extended time to recover and progress due to her PMH. Rehab Potential: Guarded PT Halfway Goals Policy Change Clerk Goals PT Halfway Goals Time Frame: Aug 06, 2017 Transfers (B,C,W/C) (FIM): 5 Gait (FIM): 2 Gait distance (FIM): 5=860-91 ft Gait Assistive Device: FWW PT Plan Problem List Problem List: Activity Tolerance, Functional Strength, Safety, Balance, Gait, Transfer, Bed Mobility Treatment/Plan Treatment Plan: Continue Plan of Care Treatment Plan: Bed Mobility, Education, Functional Activity Dahlia, Functional Strength, Gait, Safety, Therapeutic Exercise, Transfers Treatment Duration: Aug 06, 2017 Frequency: 6 times per week Estimated Hrs Per Day: .5 hour per day Patient and/or Family Agrees t: Yes Safety Risks/Education Patient Education: Transfer Techniques, Safety Issues Teaching Recipient: Patient Teaching Methods: Discussion Response to Teaching: Reinforcement Needed Discharge Recommendations Therapy D/C Recommendations: Custodial (TCU/NH) Time/GCodes Time In: 1130 Time Out: 1155 Total Billed Treatment Time: 25 Total Billed Treatment visit EVM PT/OT Therapy GCodes Therapy Functional Limitation: Physical Therapy Test(s)/Tool used to determine: Level of Assistance Scale Functional Limitation-Current Charge Code: MAMTA Modifier: CL Functional Limitation-Goal Charge Code: MOBGOAL Modifier: JEYSON MEEHAN PT Jul 30, 2017 15:35
[2017-07-30 16:05] VITALS: BP 170/73
[2017-07-30] MEDS: TROSPIUM 20 MG (SANCTURA) TAB PO SCH (17:42)
[2017-07-30 20:35] VITALS: BP 172/75
[2017-07-30] MEDS: MEMANTINE 10 MG (NAMENDA) TABLET PO SCH (20:53)
[2017-07-30] MEDS ORDERED: inSUlin DETERMIR 1 UNIT/0.01 ML (LEVEMIR) CHARGE PER UNIT SQ SCH (21:00)
[2017-07-31] VITALS: BP 183/74
[2017-07-31 05:00] VITALS: BP 180/85
[2017-07-31] MEDS: CATHETER FLUSH 10 ML SYR IV SCH ×2 (05:23→14:00)
[2017-07-31] MEDS: inSUlin ASPART (NovoLOG) 1 UNIT/0.01 ML (CHARGE PER UNIT) SC SCH ×3 (06:14→15:06)
[2017-07-31] MEDS: TROSPIUM 20 MG (SANCTURA) TAB PO SCH (06:18)
[2017-07-31] MEDS: SINEMET 25/100 (CARBIDOPA/LEVODOPA) TAB PO SCH ×2 (06:18→11:41)
[2017-07-31 08:00] VITALS: BP 185/76
[2017-07-31] MEDS ORDERED: amLODIPine 2.5MG (NORVASC) TAB PO NR (08:45)
[2017-07-31] MEDS ORDERED: [UNRECOGNIZED DRUG - REMARK] TP SCH (08:59)
[2017-07-31] MEDS ORDERED: [UNRECOGNIZED DRUG - REMARK] TP SCH (08:59)
[2017-07-31] MEDS ORDERED: fentaNYL PATCH 12 MCG (DURAGESIC) TD SCH (09:00)
[2017-07-31] MEDS ORDERED: LOSARTAN 100 MG (COZAAR) TABLET PO SCH (09:00)
[2017-07-31] MEDS ORDERED: fentaNYL PATCH 25 MCG (DURAGESIC) TD SCH (09:00)
--- NOTE | 2017-07-31 09:22 | Discharge Summary ---
Diagnosis/Chief Complaint Date of Admission Jul 29, 2017 at 21:09 Date of Discharge Discharge Date: Jul 31, 2017 Discharge Time: 11:00 Admission Diagnosis Admission Diagnosis GAIT INSTABILITY FALLING AT ASSISTED LIVING DIABETES PARKINSON'S DISEASE DIABETES MELLITUS CHRONIC PAIN SYNDROME HYPERTENSION Discharge Diagnosis GAIT INSTABILITY FALLING AT ASSISTED LIVING DIABETES PARKINSON'S DISEASE DIABETES MELLITUS CHRONIC PAIN SYNDROME HYPERTENSION Reason Hospital Visit PT IS AN 82 Y/O FEMALE WHO IS KNOWN TO ME FROM CLINIC. SHE HAS DIABETES MELLITUS - INSULIN DEPENDENT - HAS PERIPHERAL NEUROPATHY WELL PARKINSON'S DISEASE. SHE HAS BEEN HAVING FALLS OR NEAR FALLS AT HER ASSISTED LIVING FACILITY - SEVERAL OF WHICH HAVE BEEN WITNESSED BY NURSING STAFF - PT WILL BE STANDING UP- THEN HER LEGS SEEM TO GIVE WAY WITH PT STATING THAT HER LEGS FEEL WEAK. SHE DOES NOT LOOSE CONSCIOUSNESS, BUT HAS LOSS OF STRENGTH AND WILL CRUMPLE TO THE GROUND. SHE PRESENTED TO THE ER LAST NIGHT WITH RECURRENT FALL - AND WAS NOTED TO BE NOTICEABLY WEAK - SHE WAS ADMITTED FOR OBSERVATION, PT EVAL AND MEDICATION CHANGES. Discharge Summary Discharge Physical Examination Allergies: Coded Allergies: morphine (Verified Allergy, Unknown, 12/14/07) Vitals & I&Os Vital Signs Date Time Temp Pulse Resp B/P (MAP) Pulse Ox O2 Delivery O2 Flow Rate FiO2 07/31/17 05:00 97.2 87 18 180/85 (116) 97 Room Air General Appearance: Alert, Oriented X3, Cooperative HEENT: Atraumatic, PERRLA Respiratory: Clear to Auscultation Cardiovascular: Regular Rate Abdominal: Normal Bowel Sounds, Soft Extremities: No Cyanosis, Other (trace edema bilateral lower legs) Skin: No Breakdown Neuro: Normal Speech, Sensation Intact, Cranial Nerves 3-12 NL Psych/Mental Status: Mental Status NL, Mood NL Hospital Course GAIT INSTABILITY FALLING AT ASSISTED LIVING DIABETES PARKINSON'S DISEASE DIABETES MELLITUS CHRONIC PAIN SYNDROME HYPERTENSION GAIT INSTABILITY DUE TO PARKINSON'S DISEASE - WITH MULTIPLE FALLS AT HER ASSISTED LIVING FACILITY ([facility]) - I HAVE REVIEWED HER MEDICATIONS AND WILL DECREASE THE DOSE OF HER NEURONTIN FROM 400MG am AND 300MG hs TO 100MG 0900, 100MG 1300, AND 200MG HS TO SEE IF THIS HELPS TO DECREASE SOME OF THE WEAKNESS AND GROGGINESS THAT MAY BE CONTRIBUTING TO HER FALLING. IF THE CHANGE OF THE MEDICATION DOES NOT HELP HER SYMPTOMS, THE NEXT STEP IS TO DECREASE THE DOSE OF FENTANYL FROM 37MCG TO 25MCG PATCH/72 HRS. I HAVE ALSO ORDERED PHYSICAL THERAPY EVAL AND TREAT AND THEY RECOMMENDED THAT THE PATIENT NEEDS TO HAVE PHYSICAL THERAPY OUTPATIENT WHICH WE WILL CONTINUE ON DISCHARGE FOR STRENGTHENING AT HER ASSISTED LIVING FACILITY. PT TO SEE HER NEUROLOGIST SOON - I HAVE DISCUSSED THIS WITH HER DTR. DIABETES MELLITUS - RESUMED HOME MEDICATIONS, DIABETIC DIET. CHRONIC PAIN SYNDROME - PT CURRENTLY ON FENTANYL PATCHES 12MCG AND 25MCG PATCHES - CONTINUE CURRENT MANAGEMENT AT THIS TIME, BUT DECREASE NEURONTIN DESCRIBED ABOVE. HYPERTENSION - RESUMED LOSARTAN AND INCREASED DOSE FROM 50MG DAILY TO 100MG DAILY - MONITOR PRESSURE CLOSELY AT ASSISTED LIVING FACILITY. DVT PROPHYLAXIS - WILL START ON LOVENOX INJECTION AND SCD'S WHILE IN HOSPITAL. GI PROPHYLAXIS WITH PEPCID ORALLY. Pending Labs Laboratory Tests 07/31/17 05:38: Glucometer 61 07/31/17 06:39: Glucometer 79 Discharge Condition at discharge improved Instructions to patient/family Please see electronic discharge instructions given to patient. Discharge Medications Reviewed and agree with Discharge Medication list on patient's Discharge Instruction sheet Clinical Quality Measures DVT/VTE Risk/Contraindication: Risk Factor Score Per Nursin RFS Level Per Nursing on Admit: 4+=Very High LORI ROMERO MD Jul 31, 2017 09:22
[2017-07-31] MEDS ORDERED: LOSA100T28 PO (09:25)
[2017-07-31] MEDS ORDERED: GABA-486 PO ×2 (09:25)
--- NOTE | 2017-07-31 09:29 | Discharge Inst-Complex ---
PDI Med Rec & Follow Up Appt. New Medications: Gabapentin (Gabapentin) 100 Mg Capsule 100 MG PO 0900,1300, #60 CAP 7 Refills Gabapentin (Gabapentin) 100 Mg Capsule 200 MG PO HS, #30 CAP 6 Refills Losartan Potassium (Losartan Potassium) 100 Mg Tablet 100 MG PO DAILY@0900, #30 TAB 3 Refills Continued Medications: Amoxicillin (Amoxicillin) 500 Mg Capsule 2000 MG PO UD PRN for DENTAL APPOINTMENT , CAP TAKE 4 (500MG) CAPSULES 1 HOUR BEFORE DENTAL APPOINTMENT Capsaicin (Capsaicin) 42.5 Gm Cream..g. TP QID, TUBE Carbidopa/Levodopa (Carbidopa-Levodopa 25-100 Tab) 1 Each Tablet 2 TAB PO QID, TAB Carboxymethyl/Glycerin/Poly80 (Refresh Optive Advanced Drops) 10 Ml Drops 1 DROP OU TID, DROPS Cyanocobalamin (Vitamin B-12) (Vitamin B-12) 5,000 Mcg Tab.subl 5000 MCG SL DAILY, TAB Diclofenac Sodium (Voltaren) 100 Gm Gel..gram. 4 GM TP QID, TUBE Eyelid Cleanser Comb No.7 (Ocusoft Lid Scrub) 50 Ml Foam..ml. TP BID, ML Fentanyl (Duragesic Patch 25MCG) 1 Each Patch.td72 25 MCG TD Q72H, PATCH Fentanyl (Duragesic Patch 12MCG) 12 Mcg Patch 12 MCG TD Q72H, PATCH Hydrocodone Bit/Acetaminophen (Hydrocodone/Acetaminophen 5/325mg Tablet) 1 Tab Tab 1 TAB PO Q4H PRN for PAIN-MODERATE, TAB Insulin Glargine,Hum.rec.anlog (Lantus) 100 Unit/1 Ml Vial 30 UNIT SQ DAILY, VIAL Memantine HCl (Memantine HCl) 10 Mg Tablet 10 MG PO BID, TAB Multivitamin (Daily Multiple Vitamin) 1 Each Tablet 1 TAB PO DAILY, TAB Naproxen Sodium (Naproxen Sodium) 220 Mg Tablet 220 MG PO BID PRN for PAIN-MILD, TAB Nystatin (Nystop) 60 Gm Powder TP TID PRN for REDNESS, EA Pramipexole Di-HCl (Mirapex) 1 Mg Tablet 1 MG PO TID, TAB Sennosides (Senna) 8.6 Mg Tablet 2 TAB PO DAILY, TAB Sennosides (Senna) 8.6 Mg Tablet 8.6 MG PO DAILY PRN for CONSTIPATION-5TH LINE, TAB Solifenacin Succinate (Vesicare) 5 Mg Tablet 5 MG PO DAILY, TAB Discontinued Medications: Gabapentin (Gabapentin) 100 Mg Capsule 100 MG PO DAILY, CAP Gabapentin (Gabapentin) 300 Mg Capsule 300 MG PO BID, CAP Losartan Potassium (Losartan Potassium) 50 Mg Tablet 50 MG PO DAILY, TAB Trazodone HCl (Trazodone HCl) 50 Mg Tablet 50 MG PO HS, TAB Prescription: Transmitted to Pharmacy ([facility]) Activity, Diet and PDI Resume Normal Activity: Yes Discharge Diet: ADA Diet Drink 6-8 Glasses of Fluid/Day: Yes Return to The Hospital For: ANY CONCERNS FOR WORSENING SYMPTOMS Symptoms to Reoprt to : Appetite Changes, Fever Over 101 Degrees F, Pain/ Pressure in Chest, Questions/Concerns, Shortness of Breath Comment: PT EVAL AND TREAT PT AT [facility] [place] For Problems or Questions: Contact Your Physician, Go to Emergency Room LORI ROMERO MD Jul 31, 2017 09:28
--- NOTE | 2017-07-31 09:48 | Physical Therapy Daily Note ---
PT Daily Note-Current Transfers Functional [place] Measure 0=Not Assessed/NA 4=Minimal Assistance 1=Total Assistance 5=Supervision or Setup 2=Maximal Assistance 6=Modified [place] 3=Moderate Assistance 7=Complete IndependenceIRFPAI Quality Coding Scale 6 Independent with activity with or without an assistive device 5 Patient requires set up or clean up by helper. Patient completes activity by themselves 4 Supervision or touching assist (CGA). [place] provide cues , steadying assist 3 The helper provides less than half the effort to complete the activity 2 The helper provides more than half the effort to complete the activity 1 Dependent. The helper does all the effort to complete an activity 7 Patient refused to complete or attempt activity 9 The patient did not perform the activity before the current illness or injury 88 Not attempted due to Medical conditions or safety concerns Assessment Patient seen x 1 session with LOF remaining the same as on evaluation. PT Shelter Goals Shelter Goals PT Shelter Goals Time Frame: Aug 06, 2017 Transfers (B,C,W/C) (FIM): 5 Gait (FIM): 2 Gait distance (FIM): 2=499-45 ft Gait Assistive Device: FWW PT Plan Treatment/Plan Treatment Plan: Discontinue PT Treatment Plan: Bed Mobility, Education, Functional Activity Dahlia, Functional Strength, Gait, Safety, Therapeutic Exercise, Transfers Treatment Duration: Aug 06, 2017 Frequency: 6 times per week Estimated Hrs Per Day: .5 hour per day Patient and/or Family Agrees t: Yes Time/GCodes Time In: 946 Time Out: 947 Total Billed Treatment Time: 1 Total Billed Treatment DC G Codes Necessary: Yes PT/OT Therapy GCodes Therapy Functional Limitation: Physical Therapy Test(s)/Tool used to determine: Level of Assistance Scale Functional Limitation-Current Charge Code: MOBCUR Modifier: CL Functional Limitation-Goal Charge Code: MOBGOAL Modifier: CJ Functional Limitation-D/C Charge Codes: MOBDC Modifier: CL BEBA JIMÉNEZ PT Jul 31, 2017 09:48
[2017-07-31] MEDS: PRAMIPEXOLE 0.5 MG TAB (MIRAPEX) PO SCH ×2 (10:06→13:53)
[2017-07-31] MEDS: ARTIFICAL TEARS 0.4 ML UNIT DOSE (REFRESH PLUS) OU SCH ×2 (10:07→13:53)
[2017-07-31] MEDS: MEMANTINE 10 MG (NAMENDA) TABLET PO SCH (10:07)
[2017-07-31] MEDS: GABAPENTIN 100 MG (NEURONTIN) CAP PO SCH ×2 (10:07→13:53)
[2017-07-31] MEDS: SENNOSIDES 8.6 MG (SENOKOT) TAB PO SCH (10:07)
[2017-07-31] MEDS: DICLOFENAC 1% GEL 100 GM (VOLTAREN) TUBE TP SCH ×2 (10:08→13:54)
--- NOTE | 2017-07-31 11:15 | Physical Therapy Daily Note ---
PT Daily Note-Current Subjective PT in to see patient. Patient continues to c/o left hip pain. Pain Numeric Pain Scale: 8 Location: Left Location Body Site: Hip Pain Description: Acute Mental Status Patient Orientation: Person, Time, Situation Transfers Functional [place] Measure 0=Not Assessed/NA 4=Minimal Assistance 1=Total Assistance 5=Supervision or Setup 2=Maximal Assistance 6=Modified [place] 3=Moderate Assistance 7=Complete IndependenceIRFPAI Quality Coding Scale 6 Independent with activity with or without an assistive device 5 Patient requires set up or clean up by helper. Patient completes activity by themselves 4 Supervision or touching assist (CGA). [place] provide cues , steadying assist 3 The helper provides less than half the effort to complete the activity 2 The helper provides more than half the effort to complete the activity 1 Dependent. The helper does all the effort to complete an activity 7 Patient refused to complete or attempt activity 9 The patient did not perform the activity before the current illness or injury 88 Not attempted due to Medical conditions or safety concerns Transfers (B, C, W/C) (FIM): 3 Scootin Sit to/from Stand: 3 Gait Training Gait (FIM): 1 Distance (FIM): 1=up to 49 ft Distance: 15'x1, 8' x 1 Gait Level of Assist: 4 Gait Persons Needed: 1 Gait Assistive Device: FWW minimal left weight shifting to advance right LE Assessment Family present. This PT recommends use of FWW vs. 4WW for safety. Both voice understanding. Patient to dismiss to AL on this date. 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 [facility] Goals PT [facility] Goals Time Frame: Aug 06, 2017 Transfers (B,C,W/C) (FIM): 5 Gait (FIM): 2 Gait distance (FIM): 2=123-59 ft Gait Assistive Device: FWW PT Plan Treatment/Plan Treatment Plan: Discontinue PT Treatment Plan: Bed Mobility, Education, Functional Activity Dahlia, Functional Strength, Gait, Safety, Therapeutic Exercise, Transfers Treatment Duration: Aug 06, 2017 Frequency: 6 times per week Estimated Hrs Per Day: .5 hour per day Patient and/or Family Agrees t: Yes Time/GCodes Time In: 1037 Time Out: 1048 Total Billed Treatment Time: 11 Total Billed Treatment 1 visit GT 11 min G Codes Necessary: Yes PT/OT Therapy GCodes Therapy Functional Limitation: Physical Therapy Test(s)/Tool used to determine: Level of Assistance Scale Functional Limitation-Current Charge Code: MOBCUR Modifier: CL Functional Limitation-Goal Charge Code: MOBGOAL Modifier: CJ Functional Limitation-D/C Charge Codes: MOBDC Modifier: CL BEBA JIMÉNEZ PT Jul 31, 2017 11:15
== END 2017-07-31 09:22 ==
LOC: EDUNIT# 15:38 → ER 15:39 → UNDOADMOB 19:10 → 4TH 19:10
PROVIDERS: ADMIT Family Medicine; ATTEND Family Medicine
DX: R26.2 Difficulty in walking, not elsewhere classified (principal); Z91.81 History of falling; E11.9 Type 2 diabetes mellitus without complications; G20 Parkinson's disease; E11.42 Type 2 diabetes mellitus with diabetic polyneuropathy; I10 Essential (primary) hypertension; Z79.4 Long term (current) use of insulin; Z88.5 Allergy status to narcotic agent; Z79.899 Other long term (current) drug therapy
CPT/HCPCS: 36415; 70450; 71045; 80048; 80053; 81000; 82962; 85025; G0378

== ENCOUNTER → 2017-09-08 | Outpatient (CLI) | payer MEDICARE, OTHER ==
[~2017-09-08] MED LIST changes: +AMOX500C2 PO; +CAPS42.58 TP; +CARB10DR OU; +CARB1TAB19 PO; +CYAN5000 SL; +DICL100G18 TP; +FENT1PAT57 TD; +GABA-488 PO; +LOSA100T28 PO; +LOSA50TA36 PO; +MEMA10TA22 PO; +MULT-35 PO; +NAPR-1033 PO; +NF-SOLIF5T PO; +NYST60PO TP; +PRAM1TAB2 PO; +SENN-140 PO; +TRAZ-28 PO; +[UNRECOGNIZED DRUG - CODE] TP
--- NOTE | 2017-09-08 17:28 | Diagnostic Imaging Report ---
EXAM: LUMBAR SPINE - 2-3 VIEWS INDICATION: Fall. Low back pain and coccyx pain. COMPARISON: Lumbar spine MRI from 07/19/2014. FINDINGS: There are five lumbar-type vertebral bodies. Advanced degenerative demineralization. Bkmftcle-uo-foxkcyap degenerative endplate changes. Advanced lower lumbar facet arthropathy. Grade 2 anterolisthesis of L5 on S1 has progressed since the prior exam. Moderately displaced left superior ramus fracture laterally. There is also moderately displaced left inferior pubic ramus fracture Near the ischial tuberosity. Advanced degenerative changes in both hips. Bowel gas pattern is nonspecific. Vascular calcifications. IMPRESSION: 1. Moderately displaced left superior and inferior pubic rami fractures. Acute. 2. Moderate-to advanced spondylotic changes in the lumbar spine. 3. Grade 2 anterolisthesis of L5 on S1 has progressed since the prior exam. 4. No acute osseous findings. Dictated by: Dictated on workstation # [id number]
--- NOTE | 2017-09-08 17:31 | Diagnostic Imaging Report ---
EXAM: SACRUM AND COCCYX. INDICATION: FALL COCCYX/LOW BACK PAIN. COMPARISON: Radiographs 07/29/2017. FINDINGS: Moderately displaced left superior ramus fracture laterally. There is also moderately displaced left inferior pubic ramus fracture near the ischial tuberosity. No fractures of the sacrum or coccyx are identified. Moderate degenerative changes in both hips. IMPRESSION: Moderately displaced left superior and inferior pubic rami fractures. Dictated by: Dictated on workstation # [id number]
== END ==
LOC: RAD 16:42
PROVIDERS: ATTEND Nurse Practitioner Family
DX: S32.502A Unspecified fracture of left pubis, initial encounter for closed fracture (principal); M47.816 Spondylosis without myelopathy or radiculopathy, lumbar region; M43.17 Spondylolisthesis, lumbosacral region; W19.XXXA Unspecified fall, initial encounter; R11.0 Nausea
CPT/HCPCS: 72100; 72220

== ENCOUNTER → 2017-12-01 | Outpatient (CLI) | payer MEDICARE, OTHER ==
[~2017-12-01] MED LIST changes: +TRAZ-189 PO; -TRAZ-28 PO
--- NOTE | 2017-12-01 17:33 | Diagnostic Imaging Report ---
INDICATION: Fall two days ago. Pelvic pain. TECHNIQUE: AP pelvis 4:39 PM CORRELATION STUDY: 09/08/2017 FINDINGS: Displaced fractures of the left superior and inferior pubic ramus are again demonstrated. Fracture lines are still visualized. Perhaps some healing/reparative change about the inferior ramus fracture line. Overall alignment generally stable perhaps slightly more impaction at the level of the inferior ramus fracture. Possibility that this represents more acute process is considered less likely but not excluded. The left hip joint is maintained. Right hip joint stable. Large amount of overlying bowel gas and stool obscures bony detail. IMPRESSION: Findings consistent with likely incomplete healing at the left pubic ramus fractures. Some progressive impaction at the inferior ramus fractures noted. A definitive acute bony abnormality is not otherwise suggested. The particularly sacrum however is largely obscured by overlying bowel gas. If further assessment is desired, CT imaging would be recommended. Dictated by: Dictated on workstation # [id number]
== END ==
LOC: RAD 16:04
PROVIDERS: ATTEND Nurse Practitioner Family
DX: R10.2 Pelvic and perineal pain (principal); W19.XXXA Unspecified fall, initial encounter
CPT/HCPCS: 72170

== ENCOUNTER → 2018-06-29 | Outpatient (CLI) | payer MEDICARE, OTHER ==
[~2018-06-29] MED LIST changes: -LOSA100T28 PO; +LOSA100T57 PO; -LOSA50TA36 PO; +LOSA50TA63 PO; -SENN-140 PO; +SENN-141 PO
--- NOTE | 2018-06-30 20:38 | Diagnostic Imaging Report ---
INDICATION: Routine screening. Comparison is made with prior mammogram from 11/30/2013 and 11/02/2012. 2-D and 3-D bilateral screening mammography was performed with CAD. The current study was also evaluated with a Computer Aided Detection (CAD) system. FINDINGS: Right breast shows scattered fibroglandular densities. Parenchymal and vascular calcifications appear stable. No discrete mass is seen. Postsurgical and post-therapeutic changes to the left breast are again noted. No suspicious mass or malignant-appearing microcalcifications are seen. The axillae are unremarkable. IMPRESSION: Stable bilateral mammograms. No mammographic features suspicious for malignancy are identified. ACR BI-RADS Category 2: Benign findings. Result letter will be mailed to the patient. Note: At least 10% of breast cancer is not imaged by mammography. Dictated by: Dictated on workstation # [id number]
== END ==
LOC: RAD 08:58
PROVIDERS: ATTEND Family Medicine
DX: Z12.31 Encounter for screening mammogram for malignant neoplasm of breast (principal); Z85.3 Personal history of malignant neoplasm of breast; Z98.890 Other specified postprocedural states
CPT/HCPCS: 77067

== ENCOUNTER 2018-07-10 00:51 | Emergency (ER) | payer MEDICARE, OTHER ==
[~2018-07-10] VITALS: Ht 152.4 cm; Wt 59.0 kg
[2018-07-10] MEDS ORDERED: LIDOCAINE 1% INJ 20 ML 20 ML VIAL INJ ONE (01:00)
[2018-07-10] MEDS ORDERED: TETANUS,DIPTH,PERTUSS P/F (BOOSTRIX) 0.5 ML VIAL IM ONE (01:00)
--- NOTE | 2018-07-10 01:00 | ED Fall/Injury ---
General Chief Complaint: Trauma-Non Activation Stated Complaint: FALL Source: patient, EMS, senior care records Exam Limitations: clinical condition (Parkinson's dementia) History of Present Illness Date Seen by Provider: Jul 10, 2018 Time Seen by Provider: 00:45 Initial Comments The patient presents to the ER by EMS from via [facility] with chief complaint of a fall. She's not sure what she was doing at the time of the fall. She is oriented to person but not place or time. She denies loss of consciousness. She was unwitnessed by staff. She's not having any pain anywhere except top of her head where she has a small hemostatic laceration. She denies dysuria, fever, nausea, diarrhea or constipation. Allergies and Home Medications Allergies Coded Allergies: morphine (Verified Allergy, Unknown, 12/14/07) Home Medications Amoxicillin 500 Mg Capsule, 2,000 MG PO UD PRN for DENTAL APPOINTMENT , ( Reported) TAKE 4 (500MG) CAPSULES 1 HOUR BEFORE DENTAL APPOINTMENT Capsaicin 42.5 Gm Cream..g., TP QID, (Reported) Carbidopa/Levodopa 1 Each Tablet, 2 TAB PO QID, (Reported) Carboxymethyl/Glycerin/Poly80 10 Ml Drops, 1 DROP OU TID, (Reported) Cyanocobalamin (Vitamin B-12) 5,000 Mcg Tab.subl, 5,000 MCG SL DAILY, (Reported) Diclofenac Sodium 100 Gm Gel..gram., 4 GM TP QID, (Reported) Eyelid Cleanser Comb No.7 50 Ml Foam..ml., TP BID, (Reported) Fentanyl 1 Each Patch.td72, 25 MCG TD Q72H, (Reported) Fentanyl 12 Mcg Patch, 12 MCG TD Q72H, (Reported) Gabapentin 100 Mg Capsule, 100 MG PO 0900,1300 Prescribed by: LORI ROMERO on 07/31/17924 Gabapentin 100 Mg Capsule, 200 MG PO HS Prescribed by: LORI ROMERO on 07/31/17924 Hydrocodone Bit/Acetaminophen 1 Tab Tab, 1 TAB PO Q4H PRN for PAIN-MODERATE, ( Reported) Insulin Glargine,Hum.rec.anlog 100 Unit/1 Ml Vial, 30 UNIT SQ DAILY, (Reported) Losartan Potassium 100 Mg Tablet, 100 MG PO DAILY@0900 Prescribed by: LORI ROMERO on 07/31/17924 Memantine HCl 10 Mg Tablet, 10 MG PO BID, (Reported) Multivitamin 1 Each Tablet, 1 TAB PO DAILY, (Reported) Naproxen Sodium 220 Mg Tablet, 220 MG PO BID PRN for PAIN-MILD, (Reported) Nystatin 60 Gm Powder, TP TID PRN for REDNESS, (Reported) Pramipexole Di-HCl 1 Mg Tablet, 1 MG PO TID, (Reported) Sennosides 8.6 Mg Tablet, 2 TAB PO DAILY, (Reported) Sennosides 8.6 Mg Tablet, 8.6 MG PO DAILY PRN for CONSTIPATION-5TH LINE, ( Reported) Solifenacin Succinate 5 Mg Tablet, 5 MG PO DAILY, (Reported) Patient Home Medication List Home Medication List Reviewed: Yes Review of Systems Review of Systems Constitutional: No chills, No malaise Eyes: Denies Drainage, Denies Pain Ears, Nose, Mouth, Throat: denies ear pain, denies ear discharge Respiratory: No cough, No short of breath Cardiovascular: No chest pain, No edema Gastrointestinal: No abdominal pain, No constipation, No nausea Genitourinary: No discharge, No dysuria Musculoskeletal: No back pain, No joint pain Skin: see HPI Past Atbbpyg-Gzcggk-Dausij Hx Patient Social History Alcohol Use: Denies Use Recreational Drug Use: No Smoking Status: Never a Smoker 2nd Hand Smoke Exposure: No Recent Foreign Travel: No Contact w/Someone Who Travel: No Recent Hopitalizations: No Immunizations Up To Date Tetanus Booster (TDap): Less than 5yrs Date of Influenza Vaccine: Feb 24, 2014 Seasonal Allergies Seasonal Allergies: No Past Medical History Surgeries: Yes (Left Mastectomy, Left knee replacement x 2, Left knee repairs) Orthopedic Respiratory: No Cardiac: Yes Hypertension Neurological: Yes (Benign tremor) Parkinson's Disease Reproductive Disorders: No Genitourinary: Yes (URINARY INCONTINENCE) Gastrointestinal: No Musculoskeletal: Yes Arthritis, Chronic Back Pain Endocrine: Yes ( DM Type II) Diabetes, Insulin dep HEENT: Yes Cataract Hearing Impairment: Denies Cancer: Yes (left breast mastectomy) Breast Did You Recieve Any Treatments: Yes What Type of Treatment Did You: Surgical Intervention Psychosocial: No Integumentary: Yes (lt calf venous insufficiency) Blood Disorders: No Adverse Reaction/Blood Tranf: No Family Medical History Cardiovascular disease G8 BROTHER G8 BROTHER Diabetes mellitus 19 FATHER G8 BROTHER G8 BROTHER G8 SISTER FH: cancer G8 BROTHER Myocardial infarction 19 MOTHER Heart Disease, Cancer, Diabetes, Hypertension Physical Exam Vital Signs Vital Signs - First Documented 07/10/18 00:51 Temp 97.6 Pulse 88 Resp 16 B/P (MAP) 199/89 (125) Pulse Ox 97 O2 Delivery Room Air Capillary Refill : Height, Weight, BMI Height: 5'1.00" Weight: 170lbs. 0.0oz. [id number]; 32.1 BMI Method:Estimated General Appearance: WD/WN, no apparent distress HEENT: PERRL/EOMI, normal ENT inspection, TMs normal, pharynx normal, other (2 cm laceration, linear, hemostatic past the dermis on the top of the scalp.) Neck: non-tender, full range of motion, supple, normal inspection Cardiovascular: normal peripheral pulses, regular rate, rhythm, no edema Respiratory: chest non-tender, lungs clear, normal breath sounds, no respiratory distress, no accessory muscle use Peripheral Pulses: 2+ Dorsalis Pedis (R), 2+ Left Dors-Pedis (L), 2+ Radial Pulses (R), 2+ Radial Pulses (L) Gastrointestinal: normal bowel sounds, non tender, soft Back: normal inspection, no vertebral tenderness 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, no motor/sensory deficits, alert, normal mood/affect, oriented x 3, other Skin: normal color, warm/dry Omari Coma Score Best Eye Response: (4) Open Spontaneously Best Verbal Response: (5) Oriented Best Motor Response: (6) Obeys Commands [place] Total: 15 Procedures/Interventions Wound Location: Scalp Other Wound Location Top of the scalp Wound Length (cm): 2.5 Wound's Depth, Shape: linear, sub Q Wound Explored: clean Irrigated w/ Saline (ccs): 50 Betadine Prep?: No (chlorhexidine soap water) Anesthesia: 1% Lidocaine Volume Anesthetic (ccs): 4 Wound Debrided: minimal Staple Repair: Stapler 35W Number of Sutures: 5 Progress Patient's wound was cleaned thoroughly using chlorhexidine soap water and gauze. We then reapproximated the skin edges and infiltrated them with 1% lidocaine without epi. When she was ascertained to be numb 5 bertha were placed bringing the skin edges together and causing good hemostasis. Patient tolerated the procedure very well. Progress/Results/Core Measures Results/Orders Lab Results Laboratory Tests Test 07/10/18 02:05 07/10/18 02:19 Range/Units White Blood Count 5.4 4.3-11.0 10^3/uL Red Blood Count 4.12 L 4.35-5.85 10^6/uL Hemoglobin 12.0 11.5-16.0 G/DL Hematocrit 37 35-52 % Mean Corpuscular Volume 90 80-99 FL Mean Corpuscular Hemoglobin 29 25-34 PG Mean Corpuscular Hemoglobin Concent 32 32-36 G/DL Red Cell Distribution Width 14.3 10.0-14.5 % Platelet Count 191 130-400 10^3/uL Mean Platelet Volume 10.5 H 7.4-10.4 FL Neutrophils (%) (Auto) 59 42-75 % Lymphocytes (%) (Auto) 24 12-44 % Monocytes (%) (Auto) 14 H 0-12 % Eosinophils (%) (Auto) 2 0-10 % Basophils (%) (Auto) 1 0-10 % Neutrophils # (Auto) 3.2 1.8-7.8 X 10^3 Lymphocytes # (Auto) 1.3 1.0-4.0 X 10^3 Monocytes # (Auto) 0.8 0.0-1.0 X 10^3 Eosinophils # (Auto) 0.1 0.0-0.3 10^3/uL Basophils # (Auto) 0.0 0.0-0.1 10^3/uL Sodium Level 138 135-145 MMOL/L Potassium Level 4.4 3.6-5.0 MMOL/L Chloride Level 103 98-107 MMOL/L Carbon Dioxide Level 25 21-32 MMOL/L Anion Gap 10 5-14 MMOL/L Blood Urea Nitrogen 33 H 7-18 MG/DL Creatinine 0.99 0.60-1.30 MG/DL Estimat Glomerular Filtration Rate 53 BUN/Creatinine Ratio 33 Glucose Level 100 70-105 MG/DL Calcium Level 9.2 8.5-10.1 MG/DL Corrected Calcium 9.3 8.5-10.1 MG/DL Total Bilirubin 0.5 0.1-1.0 MG/DL Aspartate Amino Transf (AST/SGOT) 22 5-34 U/L Alanine Aminotransferase (ALT/SGPT) < 6 0-55 U/L Alkaline Phosphatase 123 40-136 U/L Total Protein 7.2 6.4-8.2 GM/DL Albumin 3.9 3.2-4.5 GM/DL Urine Color YELLOW Urine Clarity CLEAR Urine pH 6.5 5-9 Urine Specific [place] 1.010 L 1.016-1.022 Urine Protein NEGATIVE NEGATIVE Urine Glucose (UA) NEGATIVE NEGATIVE Urine Ketones NEGATIVE NEGATIVE Urine Nitrite NEGATIVE NEGATIVE Urine Bilirubin NEGATIVE NEGATIVE Urine Urobilinogen NORMAL NORMAL MG/DL Urine Leukocyte Esterase NEGATIVE NEGATIVE Urine RBC (Auto) NEGATIVE NEGATIVE Urine RBC NONE /HPF Urine WBC NONE /HPF Urine Squamous Epithelial Cells RARE /HPF Urine Crystals NONE /LPF Urine Bacteria TRACE /HPF Urine Casts NONE /LPF Urine Mucus NEGATIVE /LPF Urine Culture Indicated NO My Orders Orders - CINDY MONROE Ct Head/Cervical Spine Wo (07/10/18 00:53) Cbc With Automated Diff (07/10/18 00:53) Comprehensive Metabolic Panel (07/10/18 00:53) Ua Culture If Indicated (07/10/18 00:53) Dipht,Pertuss(Acell),Tet Adult (Boostrix (07/10/18 01:00) Lidocaine 1% Inj 20 Ml (Xylocaine 1% Inj (07/10/18 01:00) Medications Given in ED Current Medications Medications Dose Ordered Sig/Mark Route Start Time Stop Time Status Last Admin Dose Admin Diphtheria/ Tetanus/Acell Pertussis 0.5 ml ONCE ONCE IM 07/10/18 01:00 07/10/18 01:01 DC 07/10/18 00:58 0.5 ML Lidocaine HCl 20 ml ONCE ONCE INJ 07/10/18 01:00 07/10/18 01:01 DC 07/10/18 01:00 20 ML Vital Signs/I&O 07/10/18 00:51 Temp 97.6 Pulse 88 Resp 16 B/P (MAP) 199/89 (125) Pulse Ox 97 O2 Delivery Room Air Progress Progress Note : Time: 00:[address] of the head and neck, lab draw, Tdap. Will plan to do a laceration repair with bertha. UA. Diagnostic Imaging Diagonstic Imaging: CT (noncontrast) Plain Films/CT/US/NM/MRI: c-spine, head Comments No acute hemorrhage, hydrocephalus or mass effect. Chronic microvascular ischemic changes with cerebral volume loss. No acute fracture. No acute fracture or subluxation. Multi-level mild spinal canal stenosis secondary to degenerative changes. Reviewed: Reviewed by Me Departure Impression Primary Impression: Fall Qualified Codes: W19.XXXA - Unspecified fall, initial encounter Additional Impressions: Laceration of skin of scalp Qualified Codes: S01.01XA - Laceration without foreign body of scalp, initial encounter Stapled skin wound Disposition: HOME, SELF-CARE Condition: Stable Departure-Patient Inst. Decision time for Depature: 02:53 Referrals: LORI ROMERO MD (PCP/Family) Primary Care Physician Patient Instructions: Preventing Falls in the Older Adult Add. Discharge Instructions: Have nursing staff take the bertha out in 5-7 days. Clean the wound with regular soap and water only. If you begin to have fevers chills or discharge from the wound you should have it examined by your primary care physician. All discharge instructions reviewed with patient and/or family. Voiced understanding. CINDY MONROE Jul 10, 2018 01:00
[2018-07-10 02:11] LABS: BASOPHILS % (AUTO) 1 % (0-10); EOSINOPHILS # (AUTO) 0.1 10^3/uL (0.0-0.3); EOSINOPHILS % (AUTO) 2 % (0-10); HEMATOCRIT 37 % (35-52); LYMPHOCYTES # (AUTO) 1.3 X 10^3 (1.0-4.0); LYMPHOCYTES % (AUTO) 24 % (12-44); MEAN CORPUSCULAR HEMOGLOBIN 29 PG (25-34); MEAN CORPUSCULAR HGB CONC 32 G/DL (32-36); MEAN CORPUSCULAR VOLUME 90 FL (80-99); MEAN PLATELET VOLUME 10.5 FL (7.4-10.4); MONOCYTES # (AUTO) 0.8 X 10^3 (0.0-1.0); MONOCYTES % (AUTO) 14 % (0-12); NEUTROPHILS # (AUTO) 3.2 X 10^3 (1.8-7.8); NEUTROPHILS % (AUTO) 59 % (42-75); PLATELET COUNT 191 10^3/uL (130-400); RED CELL DISTRIBUTION WIDTH 14.3 % (10.0-14.5); WHITE BLOOD COUNT 5.4 10^3/uL (4.3-11.0)
[2018-07-10 02:27] LABS: BILIRUBIN,URINE NEGATIVE (NEGATIVE); CLARITY,URINE CLEAR; COLOR,URINE YELLOW; GLUCOSE, URINE (UA) NEGATIVE (NEGATIVE); KETONES,URINE NEGATIVE (NEGATIVE); LEUKOCYTE ESTERASE ,URINE NEGATIVE (NEGATIVE); NITRITE,URINE NEGATIVE (NEGATIVE); PH,URINE 6.5 (5-9); PROTEIN,URINE NEGATIVE (NEGATIVE); UROBILINOGEN,URINE NORMAL (NORMAL)
[2018-07-10 02:30] LABS: ALANINE AMINOTRANSFERASE < 6 U/L (0-55); ALBUMIN 3.9 GM/DL (3.2-4.5); ALKALINE PHOSPHATASE 123 U/L (40-136); BILIRUBIN,TOTAL 0.5 MG/DL (0.1-1.0); BUN/CREATININE RATIO 33; CALCIUM 9.2 MG/DL (8.5-10.1); CARBON DIOXIDE 25 MMOL/L (21-32); CHLORIDE 103 MMOL/L (98-107); CREATININE SERUM 0.99 MG/DL (0.60-1.30); GFR ESTIMATED 53; GLUCOSE 100 MG/DL (70-105); POTASSIUM 4.4 MMOL/L (3.6-5.0); SODIUM 138 MMOL/L (135-145); TOTAL PROTEIN 7.2 GM/DL (6.4-8.2)
[2018-07-10 02:51] LABS: BACTERIA,URINE TRACE /HPF; SQUAMOUS EPITHELIAL CELL,UR RARE /HPF
--- NOTE | 2018-07-10 03:11 | NUR ---
PT REPORT REGARDING FINDINGS AND CARE RECEIVED WHILE IN ED REVIEWED WITH CARE PROVIDER, SHAYE, FROM [facility].
[2018-07-10 03:25] VITALS: BP 188/85
--- NOTE | 2018-07-10 03:25 | NUR ---
DC INSTRUCTIONS REVIEWED WITH DAUGHTERREMI. REMI REPORTS NO FURTHER QUESTIONS OR CONCERNS. STAPLE REMOVER SENT WENT DAUGHTER FOR FACILITY STAFF.
--- NOTE | 2018-07-10 08:07 | Diagnostic Imaging Report ---
PROCEDURE: CT head and CT cervical spine without contrast. TECHNIQUE: Multiple contiguous axial images were obtained through the brain and cervical spine without the use of intravenous contrast. Sagittal and coronal reformations through the cervical spine were then performed. INDICATION: Fall with laceration to the head. Comparison is made with prior head CT from 07/29/2017. CT head: The ventricles and sulci are consistent with the patient's age. Moderate periventricular hypodensity is seen consistent with senescent change. No sulcal effacement, midline shift or hemorrhage is detected. Cisterns are patent. Visualized paranasal sinuses are clear. IMPRESSION: Senescent changes. No acute intracranial process is detected. CT cervical spine: Curvature and alignment is normal. Multilevel degenerative disc disease is seen with variable disc space narrowing and marginal spurring. No fracture or subluxation is seen. The odontoid is intact. Note is made of some dilatation of the upper esophagus. IMPRESSION: Cervical spondylosis. No acute bony abnormality is detected. Dictated by: Dictated on workstation # [id number]
== END 2018-07-10 03:25 | disposition home or self-care (01) ==
LOC: EDUNIT# 00:51 → ER 00:52
DX: S01.01XA Laceration without foreign body of scalp, initial encounter (principal); I10 Essential (primary) hypertension; G20 Parkinson's disease; E11.9 Type 2 diabetes mellitus without complications; R40.2142 Coma scale, eyes open, spontaneous, at arrival to emergency department; R40.2252 Coma scale, best verbal response, oriented, at arrival to emergency department; R40.2362 Coma scale, best motor response, obeys commands, at arrival to emergency department; Z85.3 Personal history of malignant neoplasm of breast; Z23 Encounter for immunization; Z82.49 Family history of ischemic heart disease and other diseases of the circulatory system; Z88.5 Allergy status to narcotic agent; Z79.4 Long term (current) use of insulin; Z90.12 Acquired absence of left breast and nipple; Z96.651 Presence of right artificial knee joint; W19.XXXA Unspecified fall, initial encounter
CPT/HCPCS: 36415; 51702; 70450; 72125; 80053; 81000; 85025; 90715

== ENCOUNTER 2018-08-22 07:19 | Emergency (ER) | payer MEDICARE, OTHER ==
[~2018-08-22] VITALS: Ht 152.4 cm; Wt 72.6 kg
[2018-08-22 07:20] VITALS: BP 196/106
--- NOTE | 2018-08-22 07:28 | ED Fall/Injury ---
General Stated Complaint: FALL Source: patient, EMS, residential records Exam Limitations: no limitations History of Present Illness Date Seen by Provider: Aug 22, 2018 Time Seen by Provider: 07:14 Initial Comments [facility] with chief complaint of unwitnessed fall. She had some blood on the back of her head. Chest some pain in her right wrist. She's not hurting anywhere else. Says she has an occasional dry nonproductive cough over the past few weeks. She's had no dysuria confusion or weakness. She does have diabetes and her blood sugar was 111 by EMS. She does not take blood thinners or aspirin. Allergies and Home Medications Allergies Coded Allergies: morphine (Verified Allergy, Unknown, 12/14/07) Home Medications Amoxicillin 500 Mg Capsule, 2,000 MG PO UD PRN for DENTAL APPOINTMENT , ( Reported) TAKE 4 (500MG) CAPSULES 1 HOUR BEFORE DENTAL APPOINTMENT Capsaicin 42.5 Gm Cream..g., TP QID, (Reported) Carbidopa/Levodopa 1 Each Tablet, 2 TAB PO QID, (Reported) Carboxymethyl/Glycerin/Poly80 10 Ml Drops, 1 DROP OU TID, (Reported) Cyanocobalamin (Vitamin B-12) 5,000 Mcg Tab.subl, 5,000 MCG SL DAILY, (Reported) Diclofenac Sodium 100 Gm Gel..gram., 4 GM TP QID, (Reported) Eyelid Cleanser Comb No.7 50 Ml Foam..ml., TP BID, (Reported) Fentanyl 1 Each Patch.td72, 25 MCG TD Q72H, (Reported) Fentanyl 12 Mcg Patch, 12 MCG TD Q72H, (Reported) Gabapentin 100 Mg Capsule, 100 MG PO 0900,1300 Prescribed by: LORI ROMERO on 07/31/17924 Gabapentin 100 Mg Capsule, 200 MG PO HS Prescribed by: LORI ROMERO on 07/31/17924 Hydrocodone Bit/Acetaminophen 1 Tab Tab, 1 TAB PO Q4H PRN for PAIN-MODERATE, ( Reported) Insulin Glargine,Hum.rec.anlog 100 Unit/1 Ml Vial, 30 UNIT SQ DAILY, (Reported) Losartan Potassium 100 Mg Tablet, 100 MG PO DAILY@0900 Prescribed by: LORI ROMERO on 07/31/17924 Memantine HCl 10 Mg Tablet, 10 MG PO BID, (Reported) Multivitamin 1 Each Tablet, 1 TAB PO DAILY, (Reported) Naproxen Sodium 220 Mg Tablet, 220 MG PO BID PRN for PAIN-MILD, (Reported) Nystatin 60 Gm Powder, TP TID PRN for REDNESS, (Reported) Pramipexole Di-HCl 1 Mg Tablet, 1 MG PO TID, (Reported) Sennosides 8.6 Mg Tablet, 2 TAB PO DAILY, (Reported) Sennosides 8.6 Mg Tablet, 8.6 MG PO DAILY PRN for CONSTIPATION-5TH LINE, ( Reported) Solifenacin Succinate 5 Mg Tablet, 5 MG PO DAILY, (Reported) Patient Home Medication List Home Medication List Reviewed: Yes Review of Systems Review of Systems Constitutional: No chills, No diaphoresis Eyes: Denies Blindness, Denies Blurred Vision Ears, Nose, Mouth, Throat: denies ear pain, denies ear discharge Respiratory: cough; No dyspnea on exertion, No phlegm Cardiovascular: No chest pain, No palpitations Gastrointestinal: No abdominal pain, No constipation Genitourinary: No discharge, No dysuria Past Xxskldi-Pgkvzj-Letzuz Hx Patient Social History Alcohol Use: Denies Use Recreational Drug Use: No Smoking Status: Never a Smoker 2nd Hand Smoke Exposure: No Recent Hopitalizations: No Immunizations Up To Date Tetanus Booster (TDap): Less than 5yrs Date of Influenza Vaccine: Feb 24, 2014 Seasonal Allergies Seasonal Allergies: No Past Medical History Surgeries: Yes (Left Mastectomy, Left knee replacement x 2, Left knee repairs) Orthopedic Respiratory: No Cardiac: Yes Hypertension Neurological: Yes (Benign tremor) Parkinson's Disease Reproductive Disorders: No Genitourinary: Yes (URINARY INCONTINENCE) Gastrointestinal: No Musculoskeletal: Yes Arthritis, Chronic Back Pain Endocrine: Yes ( DM Type II) Diabetes, Insulin dep HEENT: Yes Cataract Hearing Impairment: Denies Cancer: Yes (left breast mastectomy) Breast Did You Recieve Any Treatments: Yes What Type of Treatment Did You: Surgical Intervention Psychosocial: No Integumentary: Yes (lt calf venous insufficiency) Blood Disorders: No Adverse Reaction/Blood Tranf: No Family Medical History Cardiovascular disease G8 BROTHER G8 BROTHER Diabetes mellitus 19 FATHER G8 BROTHER G8 BROTHER G8 SISTER FH: cancer G8 BROTHER Myocardial infarction 19 MOTHER Heart Disease, Cancer, Diabetes, Hypertension Physical Exam Vital Signs Vital Signs - First Documented 08/22/18 07:20 Temp 97.7 Pulse 92 Resp 20 B/P (MAP) 196/106 (136) Pulse Ox 97 O2 Delivery Room Air Capillary Refill : Height, Weight, BMI Height: 5'0" Weight: 130lbs. 0.0oz. 58.024587cp; 32.1 BMI Method:Stated General Appearance: WD/WN, no apparent distress HEENT: PERRL/EOMI, normal ENT inspection, TMs normal, pharynx normal, other (4 cm linear vertical laceration into the subcutaneous tissue of the sentinel scalp. Negative for Brown sign, raccoon eyes or hemotympanum.) Neck: non-tender, full range of motion, supple, normal inspection Cardiovascular: normal peripheral pulses, regular rate, rhythm, no edema Respiratory: chest non-tender, lungs clear, normal breath sounds, no respiratory distress, no accessory muscle use Peripheral Pulses: 2+ Radial Pulses (R), 2+ Radial Pulses (L) Gastrointestinal: normal bowel sounds, non tender, soft Extremities: normal capillary refill, swelling (mild right wrist), other ( tenderness over the radial right wrist) Neurologic/Psychiatric: alert, normal mood/affect, oriented x 3 Skin: normal color, warm/dry Omari Coma Score Best Eye Response: (4) Open Spontaneously Best Verbal Response: (5) Oriented Best Motor Response: (6) Obeys Commands [place] Total: 15 Procedures/Interventions Wound Location: Scalp Other Wound Location Midline occipital scalp Wound Length (cm): 4 Wound's Depth, Shape: bone Wound Explored: clean Irrigated w/ Saline (ccs): 200 Betadine Prep?: Yes Anesthesia: 1% Lidocaine Volume Anesthetic (ccs): 3 Wound Debrided: minimal Staple Repair: Stapler 35W Number of Sutures: 7 Progress/Results/Core Measures Results/Orders My Orders Orders - CINDY MONROE Ct Head/Cervical Spine Wo (08/22/18 07:26) Chest 1 View, Ap/Pa Only (08/22/18 07:26) Wrist, Right, 3 Views Or More (08/22/18 07:26) Dipht,Pertuss(Acell),Tet Adult (Boostrix (08/22/18 07:30) Lidocaine 1% Inj 20 Ml (Xylocaine 1% Inj (08/22/18 08:15) Medications Given in ED Current Medications Medications Dose Ordered Sig/Mark Route Start Time Stop Time Status Last Admin Dose Admin Diphtheria/ Tetanus/Acell Pertussis 0.5 ml ONCE ONCE IM 08/22/18 07:30 08/22/18 07:31 DC 08/22/18 08:15 0.5 ML Lidocaine HCl 20 ml ONCE ONCE INJ 08/22/18 08:15 08/22/18 08:16 DC 08/22/18 08:19 20 ML Vital Signs/I&O 08/22/18 07:20 Temp 97.7 Pulse 92 Resp 20 B/P (MAP) 196/106 (136) Pulse Ox 97 O2 Delivery Room Air Progress Progress Note : Time: : Progress Note X-ray chest for cough, right wrist for pain and swelling and CT head and neck. TM and lidocaine. Clean and staple wound. Splint for wrist. Diagnostic Imaging Diagonstic Imaging: Xray Plain Films/CT/US/NM/MRI: chest (1v) Comments [facility] [place], [place] NAME: [facility] REC#: [id number] PT STATUS: REG ER : 1935 PHYSICIAN: CINDY MONROE MD ADMIT DATE: 08/22/18/ER Draft Date of Exam:08/22/18 CHEST 1 VIEW, AP/PA ONLY Indication: Fall with posterior head injury and chest pain. Comparison: 07/29/2017. Discussion: Single portable upright view of the chest was obtained. Cardiomegaly is stable. Old right rib fractures are stable. No focal consolidation, pleural fluid, or pneumothorax. Postoperative changes are again noted within the left axilla. Impression: 1. Stable cardiomegaly. Dictated on workstation # [id number] Dict: 08/22/18 0809 Trans: 08/22/18 0811 RIANNA [id number] Interpreted by: SARY VICENTE MD Electronically signed by: Reviewed: Reviewed by Me Diagonstic Imaging: CT (noncontrast) Plain Films/CT/US/NM/MRI: c-spine, head Reviewed: Reviewed by Me Diagonstic Imaging: Xray Plain Films/CT/US/NM/MRI: other (rigtht wrist) Comments [facility] [place], [place] NAME: [facility] REC#: [id number] PT STATUS: REG ER : 1935 PHYSICIAN: CINDY MONROE MD ADMIT DATE: 08/22/18/ER Draft Date of Exam:08/22/18 WRIST, RIGHT, 3 VIEWS OR MORE Indication: Fall with right wrist pain and swelling. Comparison: None. Discussion: Three views of the right wrist were obtained. There is a nondisplaced intra-articular distal right radial fracture. No other fracture or dislocation is identified. Alignment is anatomic. Soft tissue swelling is present. Moderate degenerative disease noted within the right wrist. Impression: 1. Nondisplaced intra-articular distal right radial fracture. Dictated on workstation # [id number] Dict: 08/22/18 0810 Trans: 08/22/18 0813 [facility] [id number] Interpreted by: SARY VICENTE MD Electronically signed by: Reviewed: Reviewed by Me Departure Impression Primary Impression: Fall Qualified Codes: W19.XXXA - Unspecified fall, initial encounter Additional Impressions: Right radial head fracture Qualified Codes: S52.124A - Nondisplaced fracture of head of right radius, initial encounter for closed fracture Laceration of occipital region of scalp without complication Qualified Codes: S01.01XA - Laceration without foreign body of scalp, initial encounter Concussion Qualified Codes: S06.0X0A - Concussion without loss of consciousness, initial encounter Disposition: 01 HOME, SELF-CARE Condition: Stable Departure-Patient Inst. Decision time for Depature: 08:58 Referrals: LORI ROMERO MD (PCP/Family) Primary Care Physician Patient Instructions: Laceration Repair With Torey (DC), Concussion, Adult ( DC) Add. Discharge Instructions: Keep the wound clean with regular soap and water. It is okay to shower but do not submerse the head until after the torey are out. Return to your doctor or have nursing staff remove the torey in approximately 10 days. If redness swelling or discharge from the wound and have it reexamined by a physician. Tylenol and/or ibuprofen as needed for pain. Copy Copies To 1: LORI ROMERO MD, TITUS J Aug 22, 2018 07:28
[2018-08-22] MEDS ORDERED: TETANUS,DIPTH,PERTUSS P/F (BOOSTRIX) 0.5 ML VIAL IM ONE (07:30)
--- NOTE | 2018-08-22 08:12 | Diagnostic Imaging Report ---
Indication: Fall with posterior head injury and chest pain. Comparison: 07/29/2017. Discussion: Single portable upright view of the chest was obtained. Cardiomegaly is stable. Old right rib fractures are stable. No focal consolidation, pleural fluid, or pneumothorax. Postoperative changes are again noted within the left axilla. Impression: 1. Stable cardiomegaly. Dictated by: Dictated on workstation # [id number]
--- NOTE | 2018-08-22 08:14 | Diagnostic Imaging Report ---
Indication: Fall with right wrist pain and swelling. Comparison: None. Discussion: Three views of the right wrist were obtained. There is a nondisplaced intra-articular distal right radial fracture. No other fracture or dislocation is identified. Alignment is anatomic. Soft tissue swelling is present. Moderate degenerative disease noted within the right wrist. Impression: 1. Nondisplaced intra-articular distal right radial fracture. Dictated by: Dictated on workstation # [id number]
[2018-08-22] MEDS ORDERED: LIDOCAINE 1% INJ 20 ML 20 ML VIAL INJ ONE (08:15)
--- NOTE | 2018-08-22 08:18 | Diagnostic Imaging Report ---
PROCEDURE: CT head and CT cervical spine without contrast. TECHNIQUE: Multiple contiguous axial images were obtained through the brain and cervical spine without the use of intravenous contrast. Sagittal and coronal reformations through the cervical spine were then performed. Auto Exposure Controls were utilized during the CT exam to meet ALARA standards for radiation dose reduction. INDICATION: Fall. Head injury. COMPARISON: CT head and cervical spine without contrast 07/10/2018. FINDINGS: CT head: Advanced generalized cerebral and cerebellar parenchymal volume loss. Advanced leukoaraiosis. No CT evidence of a territorial infarction. Small scalp laceration posteriorly. Osseous structures are intact. The paranasal sinuses and mastoids clear. CT cervical spine: Mild reversal of normal cervical lordosis centered at C5. Moderate degenerative endplate changes are greatest at C6-C7. There appears to be at least mild spinal canal narrowing due to spondylotic changes at C3-C6. Vertebral body heights preserved. No fractures. Moderate atherosclerotic calcifications of the carotid bifurcations. Partially visualized esophago-gastrectomy. IMPRESSION: No acute intracranial or cervical spine CT findings. Dictated by: Dictated on workstation # [id number]
== END 2018-08-22 09:06 | disposition home or self-care (01) ==
LOC: EDUNIT# 07:19 → ER 07:20
DX: S06.0X0A Concussion without loss of consciousness, initial encounter (principal); S52.124A Nondisplaced fracture of head of right radius, initial encounter for closed fracture; S01.01XA Laceration without foreign body of scalp, initial encounter; R07.9 Chest pain, unspecified; I10 Essential (primary) hypertension; G20 Parkinson's disease; E11.9 Type 2 diabetes mellitus without complications; R40.2142 Coma scale, eyes open, spontaneous, at arrival to emergency department; R40.2252 Coma scale, best verbal response, oriented, at arrival to emergency department; R40.2362 Coma scale, best motor response, obeys commands, at arrival to emergency department; Z87.448 Personal history of other diseases of urinary system; Z85.3 Personal history of malignant neoplasm of breast; Z86.018 Personal history of other benign neoplasm; Z82.49 Family history of ischemic heart disease and other diseases of the circulatory system; Z23 Encounter for immunization; Z96.652 Presence of left artificial knee joint; Z90.12 Acquired absence of left breast and nipple; Z79.4 Long term (current) use of insulin; W19.XXXA Unspecified fall, initial encounter
CPT/HCPCS: 70450; 71045; 72125; 73110; 90715

== ENCOUNTER → 2018-09-15 | Outpatient (CLI) | payer MEDICARE, OTHER ==
--- NOTE | 2018-09-15 14:25 | Diagnostic Imaging Report ---
INDICATION: Followup right wrist fracture. TECHNIQUE: AP, oblique, and lateral views of the right wrist were obtained. COMPARISON: 08/22/2018. FINDINGS: The distal radial fracture is again noted with intra-articular extension. There is ongoing healing. There is underlying degenerative change at the radiocarpal joint. IMPRESSION: Stable alignment of the comminuted distal radial fracture with intra-articular extension. Underlying degenerative change. Dictated by: Dictated on workstation # [id number]
== END ==
LOC: RAD 13:46
PROVIDERS: ATTEND Nurse Practitioner Family
DX: S52.571D Other intraarticular fracture of lower end of right radius, subsequent encounter for closed fracture with routine healing (principal); M19.031 Primary osteoarthritis, right wrist
CPT/HCPCS: 73110

== ENCOUNTER → 2018-10-11 | Outpatient (CLI) | payer MEDICARE, OTHER ==
[~2018-10-11] MED LIST changes: -TRAZ-189 PO; +TRAZ-222 PO
== END ==
LOC: LABNPT 19:05
PROVIDERS: ATTEND Family Medicine
DX: N18.9 Chronic kidney disease, unspecified (principal); Z87.440 Personal history of urinary (tract) infections; R82.998 Other abnormal findings in urine
CPT/HCPCS: 87077; 87088; 87186

== ENCOUNTER → 2019-03-22 | Outpatient (REF) | payer MEDICARE, OTHER ==
[~2019-03-22] MED LIST changes: +CAPS42.513 TP; -CAPS42.58 TP; -MEMA10TA22 PO; +MEMA10TA57 PO; -TRAZ-222 PO; +TRZ50T PO
[2019-03-22 21:52] LABS: BILIRUBIN,URINE NEGATIVE (NEGATIVE); CLARITY,URINE SL CLOUDY; COLOR,URINE YELLOW; GLUCOSE, URINE (UA) NEGATIVE (NEGATIVE); KETONES,URINE NEGATIVE (NEGATIVE); LEUKOCYTE ESTERASE ,URINE NEGATIVE (NEGATIVE); NITRITE,URINE NEGATIVE (NEGATIVE); PROTEIN,URINE NEGATIVE (NEGATIVE)
[2019-03-22 21:59] LABS: BACTERIA,URINE LARGE /HPF; SQUAMOUS EPITHELIAL CELL,UR RARE /HPF
== END ==
LOC: CVS 21:37
PROVIDERS: ATTEND Family Medicine
DX: N39.0 Urinary tract infection, site not specified (principal); N18.9 Chronic kidney disease, unspecified
CPT/HCPCS: 81000; 87077; 87088

== ENCOUNTER → 2019-05-09 | Outpatient (CLI) | payer MEDICARE, OTHER ==
[~2019-05-09] MED LIST changes: +MEMA10TA22 PO; -MEMA10TA57 PO; +TRAZ-222 PO; -TRZ50T PO
== END ==
LOC: LABNPT 10:48
PROVIDERS: ATTEND Family Medicine
DX: Z01.89 Encounter for other specified special examinations (principal)
CPT/HCPCS: 87077; 87088

== ENCOUNTER 2020-01-11 17:48 | Emergency (ER) | payer MEDICARE, OTHER ==
[~2020-01-11] VITALS: Ht 165.1 cm; Wt 71.3 kg
[~2020-01-11 17:48] MED LIST changes: -MEMA10TA22 PO; +MEMA10TA57 PO; -SENN-141 PO; +SENN-234 PO; -TRAZ-222 PO; +TRZ50T PO
[2020-01-11 18:33] LABS: BILIRUBIN,URINE NEGATIVE (NEGATIVE); COLOR,URINE YELLOW; GLUCOSE, URINE (UA) TRACE (NEGATIVE); KETONES,URINE NEGATIVE (NEGATIVE); LEUKOCYTE ESTERASE ,URINE NEGATIVE (NEGATIVE); NITRITE,URINE NEGATIVE (NEGATIVE); PH,URINE 5.5 (5-9); PROTEIN,URINE TRACE (NEGATIVE)
[2020-01-11 18:39] LABS: CLARITY,URINE SL CLOUDY
[2020-01-11 18:40] LABS: BACTERIA,URINE LARGE /HPF; SQUAMOUS EPITHELIAL CELL,UR RARE /HPF; WBC,URINE 0-2 /HPF
--- NOTE | 2020-01-11 18:53 | NUR ---
LAB HERE TO DRAW LAB.
--- NOTE | 2020-01-11 18:56 | NUR ---
LAB HERE TO DRAW BLOOD
[2020-01-11 19:05] LABS: BASOPHILS % (AUTO) 0 % (0-10); EOSINOPHILS # (AUTO) 0.1 10^3/uL (0.0-0.3); EOSINOPHILS % (AUTO) 1 % (0-10); HEMATOCRIT 40 % (35-52); LYMPHOCYTES # (AUTO) 1.1 X 10^3 (1.0-4.0); LYMPHOCYTES % (AUTO) 8 % (12-44); MEAN CORPUSCULAR HEMOGLOBIN 29 PG (25-34); MEAN CORPUSCULAR HGB CONC 33 G/DL (32-36); MEAN CORPUSCULAR VOLUME 89 FL (80-99); MEAN PLATELET VOLUME 10.2 FL (7.4-10.4); MONOCYTES % (AUTO) 8 % (0-12); NEUTROPHILS % (AUTO) 84 % (42-75); PLATELET COUNT 224 10^3/uL (130-400); WHITE BLOOD COUNT 13.2 10^3/uL (4.3-11.0)
[2020-01-11] MEDS ORDERED: CIPR500T4 PO (19:05)
[2020-01-11] MEDS ORDERED: CIPROFLOXACIN 500 MG (CIPRO) TABLET PO STA (19:06)
--- NOTE | 2020-01-11 19:06 | ED General ---
General Chief Complaint: General Problems/Pain Stated Complaint: SYNCOPE Nursing Triage Note: TO ED PER EMS FROM [facility]. EMS REPORT THAT STAFF HAD HER SITTING IN THE CHAIR FOR 3 HOURS WHEN THEY WENT TO GET HER OUT THEY THOUGHT SHE WAS NOT ACTNG HER SELF . ON ADMIT FOLLOWS ALL COMMANDS. IS BEING TREATED FOR C DIFF 1800 TALKED WITH DAUGHTER WHO IS DOPA AND GAVE UPDATE OF WHAT WE WILL BE BE DOING. Nursing Sepsis Screen: No Definite Risk History of Present Illness Date Seen by Provider: Jan 11, 2020 Time Seen by Provider: 17:48 Initial Comments 84 year old female from [facility] brought by EMS for weakness and not acting like herself. History of dementia and DNR. Being treated for C. diff with flagyl and culturelle. History of recurrent urinary tract infections. EMS reports patient was following all commands and acting appropriate during transport. Staff at long-term care reports that she sat in a chair for approximately 3 hours after physical therapy and then seemed weak and not acting herself when they transferred her. She is extremely thirsty and mouth is dry. Taking water and ice chips. Timing/Duration: 4-6 Hours Associated Systoms: Denies Symptoms Allergies and Home Medications Allergies Coded Allergies: morphine (Verified Allergy, Unknown, 12/14/07) Home Medications Amoxicillin 500 Mg Capsule, 2,000 MG PO UD PRN for DENTAL APPOINTMENT , (Reported) TAKE 4 (500MG) CAPSULES 1 HOUR BEFORE DENTAL APPOINTMENT Capsaicin 42.5 Gm Cream..g., TP QID, (Reported) Carbidopa/Levodopa 1 Each Tablet, 2 TAB PO QID, (Reported) Carboxymethyl/Glycerin/Poly80 10 Ml Drops, 1 DROP OU TID, (Reported) Ciprofloxacin HCl 500 Mg Tablet, 500 MG PO BID Prescribed by: ZULEMA PIMENTEL on 01/11/201904 Cyanocobalamin (Vitamin B-12) 5,000 Mcg Tab.subl, 5,000 MCG SL DAILY, (Reported) Diclofenac Sodium 100 Gm Gel..gram., 4 GM TP QID, (Reported) Eyelid Cleanser Comb No.7 50 Ml Foam..ml., TP BID, (Reported) Fentanyl 1 Each Patch.td72, 25 MCG TD Q72H, (Reported) Fentanyl 12 Mcg Patch, 12 MCG TD Q72H, (Reported) Gabapentin 100 Mg Capsule, 100 MG PO 0900,1300 Prescribed by: LORI ISLAS on 07/31/17924 Gabapentin 100 Mg Capsule, 200 MG PO HS Prescribed by: LORI ISLAS on 07/31/17924 Hydrocodone Bit/Acetaminophen 1 Tab Tab, 1 TAB PO Q4H PRN for PAIN-MODERATE, (Reported) Insulin Glargine,Hum.rec.anlog 100 Unit/1 Ml Vial, 30 UNIT SQ DAILY, (Reported) Losartan Potassium 100 Mg Tablet, 100 MG PO DAILY@0900 Prescribed by: LORI ISLAS on 07/31/17924 Memantine HCl 10 Mg Tablet, 10 MG PO BID, (Reported) Multivitamin 1 Each Tablet, 1 TAB PO DAILY, (Reported) Naproxen Sodium 220 Mg Tablet, 220 MG PO BID PRN for PAIN-MILD, (Reported) Nystatin 60 Gm Powder, TP TID PRN for REDNESS, (Reported) Pramipexole Di-HCl 1 Mg Tablet, 1 MG PO TID, (Reported) Sennosides 8.6 Mg Tablet, 2 TAB PO DAILY, (Reported) Sennosides 8.6 Mg Tablet, 8.6 MG PO DAILY PRN for CONSTIPATION-5TH LINE, (Reported) Solifenacin Succinate 5 Mg Tablet, 5 MG PO DAILY, (Reported) Patient Home Medication List Home Medication List Reviewed: Yes Review of Systems Review of Systems Constitutional: no symptoms reported, see HPI All Other Systems Reviewed Negative Unless Noted: Yes Past Hzifrbm-Nmjlhe-Tmeovx Hx Past Med/Social Hx: Reviewed Nursing Past Med/Soc Hx Patient Social History Alcohol Use: Denies Use Recreational Drug Use: No Smoking Status: Unknown if Ever Smoked 2nd Hand Smoke Exposure: No Recent Foreign Travel: No Contact w/Someone Who Travel: No Recent Infectious Disease Expo: No Recent Hopitalizations: No Immunizations Up To Date Tetanus Booster (TDap): Less than 5yrs Date of Influenza Vaccine: Feb 24, 2014 Seasonal Allergies Seasonal Allergies: No Past Medical History Surgeries: Yes (Left Mastectomy, Left knee replacement x 2, Left knee repairs) Orthopedic Respiratory: No Cardiac: Yes Hypertension Neurological: Yes (Benign tremor) Parkinson's Disease Reproductive Disorders: No Genitourinary: Yes (URINARY INCONTINENCE) Gastrointestinal: No Musculoskeletal: Yes Arthritis, Chronic Back Pain Endocrine: Yes ( DM Type II) Diabetes, Insulin dep HEENT: Yes Cataract Hearing Impairment: Denies Cancer: Yes (left breast mastectomy) Breast Did You Recieve Any Treatments: Yes What Type of Treatment Did You: Surgical Intervention Psychosocial: No Integumentary: Yes (lt calf venous insufficiency) Blood Disorders: No Adverse Reaction/Blood Tranf: No Family Medical History Cardiovascular disease G8 BROTHER G8 BROTHER Diabetes mellitus 19 FATHER G8 BROTHER G8 BROTHER G8 SISTER FH: cancer G8 BROTHER Myocardial infarction 19 MOTHER Heart Disease, Cancer, Diabetes, Hypertension Physical Exam Vital Signs Vital Signs - First Documented 01/11/20 17:48 Temp 36.6 Pulse 86 Resp 18 B/P (MAP) 170/74 (106) Pulse Ox 96 Capillary Refill : Less Than 3 Seconds Height, Weight, BMI Height: 5'0" Weight: 160lbs. 0.0oz. 72.260902ep; 26.00 BMI Method:Stated General Appearance: No Apparent Distress, WD/WN HEENT: PERRL/EOMI, TMs Normal, Normal ENT Inspection, Pharynx Normal, Other (oral mucosa pink and dry, better after water and ice chips) Neck: Full Range of Motion, Normal Inspection, Non Tender, Supple Respiratory: Chest Non Tender, Lungs Clear, Normal Breath Sounds Cardiovascular: Regular Rate, Rhythm, No Edema, No Murmur, Normal Peripheral Pulses Gastrointestinal: Normal Bowel Sounds, Non Tender, Soft, Distended Neurologic/Psychiatric: Alert, No Motor/Sensory Deficits, Normal Mood/Affect Skin: Normal Color, Warm/Dry Comments NIH 0, follows all commands, no facial drooping or weakness in extremities. Progress/Results/Core Measures Suspected Sepsis Recent Fever Within 48 Hours: No Infection Criteria Present: None New/Unexplained Altered Menta: No Sepsis Screen: No Definite Risk SIRS Temperature: Pulse: 86 Respiratory Rate: 18 Laboratory Tests 01/11/20 19:00: White Blood Count 13.2H Blood Pressure 170 /74 Mean: 106 Laboratory Tests 01/11/20 19:00: Platelet Count 224 Results/Orders Lab Results Laboratory Tests Test 01/11/20 13:02 01/11/20 19:00 Range/Units Urine Color YELLOW Urine Clarity SL CLOUDY Urine pH 5.5 5-9 Urine Specific [place] 1.020 1.016-1.022 Urine Protein TRACE H NEGATIVE Urine Glucose (UA) TRACE H NEGATIVE Urine Ketones NEGATIVE NEGATIVE Urine Nitrite NEGATIVE NEGATIVE Urine Bilirubin NEGATIVE NEGATIVE Urine Urobilinogen 0.2 < = 1.0 MG/DL Urine Leukocyte Esterase NEGATIVE NEGATIVE Urine RBC (Auto) NEGATIVE NEGATIVE Urine RBC NONE /HPF Urine WBC 0-2 /HPF Urine Squamous Epithelial Cells RARE /HPF Urine Crystals NONE /LPF Urine Bacteria LARGE H /HPF Urine Casts NONE /LPF Urine Mucus NEGATIVE /LPF Urine Culture Indicated YES White Blood Count 13.2 H 4.3-11.0 10^3/uL Red Blood Count 4.49 4.35-5.85 10^6/uL Hemoglobin 13.0 11.5-16.0 G/DL Hematocrit 40 35-52 % Mean Corpuscular Volume 89 80-99 FL Mean Corpuscular Hemoglobin 29 25-34 PG Mean Corpuscular Hemoglobin Concent 33 32-36 G/DL Red Cell Distribution Width 14.2 10.0-14.5 % Platelet Count 224 130-400 10^3/uL Mean Platelet Volume 10.2 7.4-10.4 FL Neutrophils (%) (Auto) 84 H 42-75 % Lymphocytes (%) (Auto) 8 L 12-44 % Monocytes (%) (Auto) 8 0-12 % Eosinophils (%) (Auto) 1 0-10 % Basophils (%) (Auto) 0 0-10 % Neutrophils # (Auto) 11.0 H 1.8-7.8 X 10^3 Lymphocytes # (Auto) 1.1 1.0-4.0 X 10^3 Monocytes # (Auto) 1.0 0.0-1.0 X 10^3 Eosinophils # (Auto) 0.1 0.0-0.3 10^3/uL Basophils # (Auto) 0.0 0.0-0.1 10^3/uL My Orders Orders - ZULEMA PIMENTEL Cbc With Automated Diff (01/11/20 18:28) Comprehensive Metabolic Panel (01/11/20 18:28) Ua Culture If Indicated (01/11/20 18:28) Urine Culture (01/11/20 13:02) Ciprofloxacin Tablet (Cipro Tablet) (01/11/20 19:06) Vital Signs/I&O 01/11/20 17:48 Temp 36.6 Pulse 86 Resp 18 B/P (MAP) 170/74 (106) Pulse Ox 96 Capillary Refill : Less Than 3 Seconds Blood Pressure Mean: 106 Progress Note : Time: 17:48 Progress Note Patient seen and evaluated, a urine obtained with straight catheter, we'll do CBC and CMP. Continue to offer fluids and ice chips. 1814 spoke to patient's daughter and updated on status. 1899 patient has remained stable, responds to questions and simple commands. No noted change in mental status. Discharge instructions and return precautions reviewed.[facility] notified to transport patient. Daughter updated on status and understands plan of care. Departure Impression Primary Impression: Urinary tract infection Qualified Codes: N30.00 - Acute cystitis without hematuria Additional Impression: General medical exam Disposition: HOME, SELF-CARE Condition: Stable Departure-Patient Inst. Decision time for Depature: 19:00 Referrals: LORI ISLAS MD (PCP/Family) Primary Care Physician Patient Instructions: Urinary Tract Infection, Adult (DC) Add. Discharge Instructions: Increase water intake, offer drinks every 30 min, while awake. Change brief when soiled, check every 2 hours. Activities as tolerated. Take antibiotic, as prescribed. Follow-up with Dr. Islas if symptoms are not improving or worsen. Return to the emergency department for new, urgent health care needs. All discharge instructions reviewed with patient and/or family. Voiced understanding. Scripts Ciprofloxacin HCl (Ciprofloxacin HCl) 500 Mg Tablet 500 MG PO BID, #6 TAB 0 Refills Prov: ZULEMA PIMENTEL 01/11/20 Copy Copies To 1: LORI ISLAS MD, AMY ARNP Jan 11, 2020 19:06
--- NOTE | 2020-01-11 19:13 | NUR ---
REPORT TO NICOLASA
[2020-01-11 19:19] LABS: ALBUMIN 3.8 GM/DL (3.2-4.5); POTASSIUM 3.9 MMOL/L (3.6-5.0)
[2020-01-11 19:20] LABS: CALCIUM 9.1 MG/DL (8.5-10.1)
[2020-01-11 19:21] LABS: TOTAL PROTEIN 7.3 GM/DL (6.4-8.2)
[2020-01-11 19:23] LABS: BILIRUBIN,TOTAL 0.6 MG/DL (0.1-1.0)
[2020-01-11 19:25] LABS: CREATININE SERUM 1.1 MG/DL (0.60-1.30)
[2020-01-11 20:05] VITALS: BP 147/76
== END 2020-01-11 20:05 | disposition home or self-care (01) ==
LOC: EDUNIT# 17:48 → ER 17:49
DX: N39.0 Urinary tract infection, site not specified (principal); E11.9 Type 2 diabetes mellitus without complications; I10 Essential (primary) hypertension; G89.29 Other chronic pain; M54.9 Dorsalgia, unspecified; G20 Parkinson's disease; Z88.5 Allergy status to narcotic agent; Z85.3 Personal history of malignant neoplasm of breast; Z79.4 Long term (current) use of insulin; Z82.49 Family history of ischemic heart disease and other diseases of the circulatory system; Z80.9 Family history of malignant neoplasm, unspecified; Z79.891 Long term (current) use of opiate analgesic
CPT/HCPCS: 36415; 80053; 81000; 85025; 87088; 99283

== ENCOUNTER → 2020-05-09 | Outpatient (CLI) | payer MEDICARE, OTHER ==
[~2020-05-09] MED LIST changes: -CAPS42.513 TP; +CAPS42.514 TP; +CIPR500T4 PO
[2020-05-09 02:03] LABS: BILIRUBIN,URINE NEGATIVE (NEGATIVE); CLARITY,URINE CLOUDY; COLOR,URINE YELLOW; GLUCOSE, URINE (UA) 1+ (NEGATIVE); KETONES,URINE NEGATIVE (NEGATIVE); LEUKOCYTE ESTERASE ,URINE 3+ (NEGATIVE); NITRITE,URINE NEGATIVE (NEGATIVE); PH,URINE 7.5 (5-9); PROTEIN,URINE 1+ (NEGATIVE)
[2020-05-09 02:10] LABS: BACTERIA,URINE MODERATE /HPF; WBC,URINE TNTC /HPF
== END ==
LOC: LABNPT 01:52
PROVIDERS: ATTEND Family Medicine
DX: Z01.89 Encounter for other specified special examinations (principal)
CPT/HCPCS: 81000; 87088

== ENCOUNTER 2021-03-05 13:48 | Inpatient (IN) | payer MEDICARE, OTHER ==
[~2021-03-05] VITALS: Ht 163 cm; Wt 63.5 kg
[~2021-03-05 13:48] MED LIST changes: -CIPR500T4 PO; +CIPR500T5 PO
--- NOTE | 2021-03-05 14:01 | ED General ---
General Stated Complaint: INCREASED LETHARGY Source of Information: Patient Exam Limitations: No Limitations History of Present Illness Date Seen by Provider: Mar 05, 2021 Time Seen by Provider: 13:59 Initial Comments To ER with increased confusion from baseline for the past 2 days with abnormal sodium. Unclear if the sodium was high or low. Timing/Duration: 1-2 Days Severity: Moderate Associated Systoms: Denies Symptoms Allergies and Home Medications Allergies Coded Allergies: morphine (Verified Allergy, Unknown, 12/14/07) Patient Home Medication List Home Medication List Reviewed: Yes Amoxicillin (Amoxicillin) 500 Mg Capsule, 2,000 MG PO UD PRN for DENTAL APPOINTMENT , (Reported) Entered as Reported by: DIANN MARTINS on 07/30/17910 Capsaicin (Capsaicin) 42.5 Gm Cream..g., TP QID, (Reported) Entered as Reported by: DIANN MARTINS on 07/30/17910 Carbidopa/Levodopa (Carbidopa-Levodopa 25-100 Tab) 1 Each Tablet, 2 TAB PO QID, (Reported) Entered as Reported by: DIANN MARTINS on 07/30/17910 Carboxymethyl/Glycerin/Poly80 (Refresh Optive Advanced Drops) 10 Ml Drops, 1 DROP OU TID, (Reported) Entered as Reported by: DIANN MARTINS on 07/30/17910 Ciprofloxacin HCl (Ciprofloxacin HCl) 500 Mg Tablet, 500 MG PO BID Prescribed by: ZULEMA PIMENTEL on 01/11/201904 Cyanocobalamin (Vitamin B-12) (Vitamin B-12) 5,000 Mcg Tab.subl, 5,000 MCG SL DAILY, (Reported) Entered as Reported by: DIANN MARTINS on 07/30/17910 Diclofenac Sodium (Voltaren) 100 Gm Gel..gram., 4 GM TP QID, (Reported) Entered as Reported by: DIANN MARTINS on 07/30/17910 Eyelid Cleanser Comb No.7 (Ocusoft Lid Scrub) 50 Ml Foam..ml., TP BID, (Reported) Entered as Reported by: DIANN MARTINS on 07/30/17910 Fentanyl (Duragesic Patch 25MCG) 1 Each Patch.td72, 25 MCG TD Q72H, (Reported) Entered as Reported by: DIANN MARTINS on 07/30/17910 Fentanyl (Duragesic Patch 12MCG) 12 Mcg Patch, 12 MCG TD Q72H, (Reported) Entered as Reported by: DIANN MARTINS on 07/30/17910 Gabapentin (Gabapentin) 100 Mg Capsule, 100 MG PO 0900,1300 Prescribed by: LORI ROMERO on 07/31/17924 Gabapentin (Gabapentin) 100 Mg Capsule, 200 MG PO HS Prescribed by: LORI ROMERO on 07/31/17924 Hydrocodone Bit/Acetaminophen (Lortab 5 Mg Tablet) 1 Tab Tab, 1 TAB PO Q4H PRN for PAIN-MODERATE, (Reported) Entered as Reported by: DIANN MARTINS on 07/30/17910 Insulin Glargine,Hum.rec.anlog (Lantus) 100 Unit/1 Ml Vial, 30 UNIT SQ DAILY, (Reported) Entered as Reported by: DIANN MARTINS on 07/30/17910 Losartan Potassium (Losartan Potassium) 100 Mg Tablet, 100 MG PO DAILY@0900 Prescribed by: LORI ROMERO on 07/31/17924 Memantine HCl (Memantine HCl) 10 Mg Tablet, 10 MG PO BID, (Reported) Entered as Reported by: DIANN MARTINS on 07/30/17910 Multivitamin (Daily Multiple Vitamin) 1 Each Tablet, 1 TAB PO DAILY, (Reported) Entered as Reported by: DIANN MARTINS on 07/30/17910 Naproxen Sodium (Naproxen Sodium) 220 Mg Tablet, 220 MG PO BID PRN for PAIN- MILD, (Reported) Entered as Reported by: DIANN MARTINS on 07/30/17910 Nystatin (Nystop) 60 Gm Powder, TP TID PRN for REDNESS, (Reported) Entered as Reported by: DIANN MARTINS on 07/30/17910 Pramipexole Di-HCl (Mirapex) 1 Mg Tablet, 1 MG PO TID, (Reported) Entered as Reported by: DIANN MARTINS on 07/30/17910 Sennosides (Senna) 8.6 Mg Tablet, 2 TAB PO DAILY, (Reported) Entered as Reported by: DIANN MARTINS on 07/30/17910 Sennosides (Senna) 8.6 Mg Tablet, 8.6 MG PO DAILY PRN for CONSTIPATION-5TH LINE, (Reported) Entered as Reported by: DIANN MARTINS on 07/30/17910 Solifenacin Succinate (Vesicare) 5 Mg Tablet, 5 MG PO DAILY, (Reported) Entered as Reported by: DIANN MARTINS on 07/30/17910 Review of Systems Review of Systems Constitutional: see HPI EENTM: see HPI Respiratory: no symptoms reported Cardiovascular: no symptoms reported Genitourinary: no symptoms reported Musculoskeletal: no symptoms reported Skin: no symptoms reported Psychiatric/Neurological: No Symptoms Reported Hematologic/Lymphatic: No Symptoms Reported Immunological/Allergic: no symptoms reported Past Iztdlmy-Pkdwlp-Nkjftd Hx Immunizations Up To Date Tetanus Booster (TDap): Less than 5yrs Seasonal Allergies Seasonal Allergies: No Past Medical History Surgeries: Yes (Left Mastectomy, Left knee replacement x 2, Left knee repairs) Orthopedic Respiratory: No Cardiac: Yes Hypertension Neurological: Yes (Benign tremor) Parkinson's Disease Reproductive Disorders: No Genitourinary: Yes (URINARY INCONTINENCE) Gastrointestinal: No Musculoskeletal: Yes Arthritis, Chronic Back Pain Endocrine: Yes ( DM Type II) Diabetes, Insulin dep HEENT: Yes Cataract Hearing Impairment: Denies Cancer: Yes (left breast mastectomy) Breast Did You Recieve Any Treatments: Yes What Type of Treatment Did You: Surgical Intervention Psychosocial: No Integumentary: Yes (lt calf venous insufficiency) Blood Disorders: No Adverse Reaction/Blood Tranf: No Family Medical History Cardiovascular disease G8 BROTHER G8 BROTHER Diabetes mellitus 19 FATHER G8 BROTHER G8 BROTHER G8 SISTER FH: cancer G8 BROTHER Myocardial infarction 19 MOTHER Heart Disease, Cancer, Diabetes, Hypertension Physical Exam Vital Signs Vital Signs - First Documented 03/05/21 13:48 Temp 36.6 Pulse 83 Resp 20 B/P (MAP) 150/65 (93) Pulse Ox 94 O2 Delivery Room Air Capillary Refill : Height, Weight, BMI Height: 5'0" Weight: 160lbs. 0.0oz. 72.402040aq; 26.00 BMI Method:Stated General Appearance: No Apparent Distress, WD/WN, Other (Alert looking around the room disoriented pleasant) Eyes: Bilateral Eye Normal Inspection, Bilateral Eye PERRL, Bilateral Eye EOMI Neck: Full Range of Motion, Normal Inspection Respiratory: No Accessory Muscle Use, No Respiratory Distress Cardiovascular: Regular Rate, Rhythm, Normal Peripheral Pulses Neurologic/Psychiatric: Alert Skin: Normal Color, Warm/Dry Progress/Results/Core Measures Suspected Sepsis SIRS Temperature: Pulse: Respiratory Rate: Laboratory Tests 03/05/21 13:57: White Blood Count 13.0H Blood Pressure / Mean: Laboratory Tests 03/05/21 13:57: Creatinine 2.49H, INR Comment 1.1, Platelet Count 135, Total Bilirubin 0.4 Results/Orders Lab Results Laboratory Tests Test 03/05/21 13:57 Range/Units White Blood Count 13.0 H 4.3-11.0 10^3/uL Red Blood Count 4.16 3.80-5.11 10^6/uL Hemoglobin 12.5 11.5-16.0 g/dL Hematocrit 41 35-52 % Mean Corpuscular Volume 99 80-99 fL Mean Corpuscular Hemoglobin 30 25-34 pg Mean Corpuscular Hemoglobin Concent 31 L 32-36 g/dL Red Cell Distribution Width 16.1 H 10.0-14.5 % Platelet Count 135 130-400 10^3/uL Mean Platelet Volume 12.6 H 9.0-12.2 fL Immature Granulocyte % (Auto) 1 % Neutrophils (%) (Auto) 86 H 42-75 % Lymphocytes (%) (Auto) 8 L 12-44 % Monocytes (%) (Auto) 6 0-12 % Eosinophils (%) (Auto) 0 0-10 % Basophils (%) (Auto) 1 0-10 % Neutrophils # (Auto) 11.1 H 1.8-7.8 10^3/uL Lymphocytes # (Auto) 1.0 1.0-4.0 10^3/uL Monocytes # (Auto) 0.7 0.0-1.0 10^3/uL Eosinophils # (Auto) 0.1 0.0-0.3 10^3/uL Basophils # (Auto) 0.1 0.0-0.1 10^3/uL Immature Granulocyte # (Auto) 0.1 0.0-0.1 10^3/uL Prothrombin Time 14.4 12.2-14.7 SEC INR Comment 1.1 0.8-1.4 Sodium Level 150 H 135-145 MMOL/L Potassium Level 4.7 3.6-5.0 MMOL/L Carbon Dioxide Level 21 21-32 MMOL/L Anion Gap 15 H 5-14 MMOL/L Blood Urea Nitrogen 73 H 7-18 MG/DL Creatinine 2.49 H 0.60-1.30 MG/DL Estimat Glomerular Filtration Rate 18 BUN/Creatinine Ratio 29 Calcium Level 8.6 8.5-10.1 MG/DL Corrected Calcium 8.8 8.5-10.1 MG/DL Total Bilirubin 0.4 0.1-1.0 MG/DL Aspartate Amino Transf (AST/SGOT) 46 H 5-34 U/L Alanine Aminotransferase (ALT/SGPT) 16 0-55 U/L Alkaline Phosphatase 95 40-136 U/L Total Protein 7.2 6.4-8.2 GM/DL Albumin 3.7 3.2-4.5 GM/DL My Orders Orders - SHIRA OAKES APRN Cbc With Automated Diff (03/05/21 13:55) Comprehensive Metabolic Panel (03/05/21 13:55) Protime With Inr (03/05/21 13:55) Ua Culture If Indicated (03/05/21 13:55) Ed Iv/Invasive Line Start (03/05/21 13:55) Straight Cath (Urinary) (03/05/21 13:55) Ct Head Wo (03/05/21 13:55) Chest 1 View, Ap/Pa Only (03/05/21 13:55) BNP (03/05/21 13:55) Manual Differential (03/05/21 13:57) Lactated Ringers (Lr 1000 Ml Iv Solution (03/05/21 14:30) Ceftriaxone (Rocephin) (03/05/21 14:30) Vital Signs/I&O 03/05/21 13:48 Temp 36.6 Pulse 83 Resp 20 B/P (MAP) 150/65 (93) Pulse Ox 94 O2 Delivery Room Air Capillary Refill : Departure Communication (Admissions) NAME: [facility] REC#: [id number] PT STATUS: REG ER : 1935 PHYSICIAN: SHIRA OAKES APRN ADMIT DATE: 03/05/21/ER Draft Date of Exam:03/05/21 CHEST 1 VIEW, AP/PA ONLY EXAMINATION: Chest 1 view HISTORY: Altered mental status COMPARISON: 08/22/2018 FINDINGS: Stable enlargement of the cardiac silhouette and prominence of pulmonary vasculature. There are low lung volumes. Left and right lower lung opacities, unchanged from 08/22/2018. Curvilinear opacity overlying the right upper lung. No pneumothorax. The osseous structures are intact. IMPRESSION: 1. Stable cardiomegaly and pulmonary vascular congestion. 2. Stable opacities in the lung bases compared to 08/22/2018. Dictated on workstation # [id number] Dict: 03/05/21 1430 Trans: 03/05/21 1433 [id number] [id number] Interpreted by: ASHLEY CHAVEZ DO Electronically signed by: NAME: [facility] REC#: [id number] PT STATUS: REG ER : 1935 PHYSICIAN: SHIRA OAKES APRN ADMIT DATE: 03/05/21/ER Draft Date of Exam:03/05/21 CT HEAD WO EXAMINATION: CT head without contrast. TECHNIQUE: Multiple contiguous axial images were obtained through the brain without the use of intravenous contrast. All CT scans use one or more of the following dose optimizing techniques: automated exposure control, MA and/or KvP adjustment based on patient size and exam type or iterative reconstruction. HISTORY: altered mental status COMPARISON: 08/22/2018. FINDINGS: Moderate diffuse cerebral volume loss with proportional enlargement of the ventricles and sulci. Moderate hypodensities throughout the supratentorial white matter posterior hemispheres. No acute intracranial hemorrhage or abnormal extra-axial fluid collections are present. Calcification of the intracranial ICAs. No hyperdense vessel. The calvarium is intact. The mastoid air cells are clear. The visualized paranasal sinuses are clear. Surgical changes from bilateral cataract repair. IMPRESSION: 1. No acute intracranial abnormality. 2. Chronic microangiopathy and volume loss. Dictated on workstation # [id number] Dict: 03/05/21 1432 Trans: 03/05/21 1437 [id number] Interpreted by: ASHLEY CHAVEZ DO Electronically signed by: 1430-She had a urinalysis done this morning and [facility] and I have obtained this from them. This shows right positive with 3+ leukocyte esterase urinary tract infection. Culture is pending. Impression Primary Impression: Urinary tract infection Additional Impression: ELAINE (acute kidney injury) Disposition: ADMITTED INPATIENT Condition: Stable Admissions Decision to Admit Reason: Admit from ER (General) Decision to Admit/Date: Mar 05, 2021 Time/Decision to Admit Time: 14:30 Departure-Patient Inst. Referrals: LORI ROMERO MD (PCP/Family) Primary Care Physician SHIRA OAKES APRN Mar 05, 2021 14:00
[2021-03-05 14:11] LABS: BASOPHILS # (AUTO) 0.1 10^3/uL (0.0-0.1); BASOPHILS % (AUTO) 1 % (0-10); EOSINOPHILS # (AUTO) 0.1 10^3/uL (0.0-0.3); EOSINOPHILS % (AUTO) 0 % (0-10); HEMATOCRIT 41 % (35-52); HEMOGLOBIN 12.5 g/dL (11.5-16.0); LYMPHOCYTES % (AUTO) 8 % (12-44); MEAN CORPUSCULAR HEMOGLOBIN 30 pg (25-34); MEAN CORPUSCULAR HGB CONC 31 g/dL (32-36); MEAN CORPUSCULAR VOLUME 99 fL (80-99); MEAN PLATELET VOLUME 12.6 fL (9.0-12.2); MONOCYTES # (AUTO) 0.7 10^3/uL (0.0-1.0); MONOCYTES % (AUTO) 6 % (0-12); NEUTROPHILS # (AUTO) 11.1 10^3/uL (1.8-7.8); NEUTROPHILS % (AUTO) 86 % (42-75); PLATELET COUNT 135 10^3/uL (130-400)
[2021-03-05 14:15] LABS: ALBUMIN 3.7 GM/DL (3.2-4.5); POTASSIUM 4.7 MMOL/L (3.6-5.0)
[2021-03-05 14:17] LABS: CALCIUM 8.6 MG/DL (8.5-10.1)
[2021-03-05 14:18] LABS: TOTAL PROTEIN 7.2 GM/DL (6.4-8.2)
[2021-03-05 14:20] LABS: BILIRUBIN,TOTAL 0.4 MG/DL (0.1-1.0)
[2021-03-05 14:21] LABS: CREATININE SERUM 2.49 MG/DL (0.60-1.30)
[2021-03-05 14:28] LABS: INR 1.1 (0.8-1.4); PROTHROMBIN TIME PATIENT 14.4 SEC (12.2-14.7)
[2021-03-05] MEDS ORDERED: cefTRIAXone 1,000 MG in WATER (STERILE) FOR INJECTION 10 ML IV ONE (14:30)
[2021-03-05] MEDS ORDERED: LACTATED RINGERS 1,000 ML IV SCH (14:30)
--- NOTE | 2021-03-05 14:33 | Diagnostic Imaging Report ---
EXAMINATION: Chest 1 view HISTORY: Altered mental status COMPARISON: 08/22/2018 FINDINGS: Stable enlargement of the cardiac silhouette and prominence of pulmonary vasculature. There are low lung volumes. Left and right lower lung opacities, unchanged from 08/22/2018. Curvilinear opacity overlying the right upper lung. No pneumothorax. The osseous structures are intact. IMPRESSION: 1. Stable cardiomegaly and pulmonary vascular congestion. 2. Stable opacities in the lung bases compared to 08/22/2018. Dictated by: Dictated on workstation # [id number]
--- NOTE | 2021-03-05 14:38 | Diagnostic Imaging Report ---
EXAMINATION: CT head without contrast. TECHNIQUE: Multiple contiguous axial images were obtained through the brain without the use of intravenous contrast. All CT scans use one or more of the following dose optimizing techniques: automated exposure control, MA and/or KvP adjustment based on patient size and exam type or iterative reconstruction. HISTORY: altered mental status COMPARISON: 08/22/2018. FINDINGS: Moderate diffuse cerebral volume loss with proportional enlargement of the ventricles and sulci. Moderate hypodensities throughout the supratentorial white matter posterior hemispheres. No acute intracranial hemorrhage or abnormal extra-axial fluid collections are present. Calcification of the intracranial ICAs. No hyperdense vessel. The calvarium is intact. The mastoid air cells are clear. The visualized paranasal sinuses are clear. Surgical changes from bilateral cataract repair. IMPRESSION: 1. No acute intracranial abnormality. 2. Chronic microangiopathy and volume loss. Dictated by: Dictated on workstation # [id number]
[2021-03-05] MEDS ORDERED: inSUlin (REGULAR) HUMAN 1 UNIT/0.01 ML (CHARGE PER UNIT) IV ONE (15:00)
[2021-03-05 15:32] LABS: LYMPHOCYTES % (MANUAL) 10 %; MONOCYTES % (MANUAL) 4 %; NEUTROPHILS % (MANUAL) 86 %; RBC MORPH NORMAL
[2021-03-05] MEDS ORDERED: CATHETER FLUSH 10 ML SYR IV PRN (15:45)
[2021-03-05 15:59] VITALS: BP 154/76
[2021-03-05] MEDS: LACTATED RINGERS 1,000 ML IV SCH (16:38)
[2021-03-05] MEDS: inSUlin ASPART (NovoLOG) 1 UNIT/0.01 ML (CHARGE PER UNIT) SC SCH ×2 (17:12→20:43)
--- NOTE | 2021-03-05 19:06 | History & Physical ---
History of Present Illness History of Present Illness Reason for visit/HPI PT IS AN 85 Y/O FEMALE WHO IS KNOWN TO ME FROM CLINIC AND PREVIOUS HOSPITALIZATIONS. MRS. QUEEN RESIDES AT [facility], A PHONE CALL WAS PLACED THIS MORNING CONCERNED FOR HER HEALTH - SHE HAD LABS WHICH SHOWED ELEVATED RENAL FUNCTION AND DEHYDRATION, THE FACILITY WAS ADVISED TO SEND HER TO THE ER FOR EVALUATION DUE TO HER ACUTE DECLINE AND NEED FOR EMERGENT EVALUAT ION. SHE WAS FOUND TO BE DEHYDRATED AND HAD A URINARY TRACT INFECTION AND WAS ADMITTED TO THE HOSPITAL FOR IV FLUIDS, AND IV ANTIBIOTICS. Date of Admission Mar 05, 2021 at 14:31 Date Seen by a Provider: Mar 05, 2021 Time Seen by a Provider: 19:00 I consulted on this patient on 03/05/21 19:01 Attending Physician Lori Islas MD Admitting Physician Lori Islas MD Consult Allergies and Home Medications Allergies Coded Allergies: amoxicillin (Verified Allergy, Unknown, 03/05/21) clavulanic acid (Verified Allergy, Unknown, 03/05/21) morphine (Verified Allergy, Unknown, 12/14/07) Patient Home Medication List Home Medication List Reviewed: Yes Amoxicillin (Amoxicillin) 500 Mg Capsule, 2,000 MG PO UD PRN for DENTAL APPOINTMENT , (Reported) Entered as Reported by: DIANN MARTINS on 07/30/17910 Last Action: Held Capsaicin (Capsaicin) 42.5 Gm Cream..g., TP QID, (Reported) Entered as Reported by: DIANN MARTINS on 07/30/17910 Carbidopa/Levodopa (Carbidopa-Levodopa 25-100 Tab) 1 Each Tablet, 2 TAB PO QID, (Reported) Entered as Reported by: DIANN MARTINS on 07/30/17910 Last Action: Continued Carboxymethyl/Glycerin/Poly80 (Refresh Optive Advanced Drops) 10 Ml Drops, 1 DROP OU TID, (Reported) Entered as Reported by: DIANN MARTINS on 07/30/17910 Ciprofloxacin HCl (Ciprofloxacin HCl) 500 Mg Tablet, 500 MG PO BID Prescribed by: ZULEMA PIMENTEL on 01/11/201904 Cyanocobalamin (Vitamin B-12) (Vitamin B-12) 5,000 Mcg Tab.subl, 5,000 MCG SL DAILY, (Reported) Entered as Reported by: DIANN MARTINS on 07/30/17910 Diclofenac Sodium (Voltaren) 100 Gm Gel..gram., 4 GM TP QID, (Reported) Entered as Reported by: DIANN MARTINS on 07/30/17910 Last Action: Continued Eyelid Cleanser Comb No.7 (Ocusoft Lid Scrub) 50 Ml Foam..ml., TP BID, (Reported) Entered as Reported by: DIANN MARTINS on 07/30/17910 Fentanyl (Duragesic Patch 25MCG) 1 Each Patch.td72, 25 MCG TD Q72H, (Reported) Entered as Reported by: DIANN MARTINS on 07/30/17910 Fentanyl (Duragesic Patch 12MCG) 12 Mcg Patch, 12 MCG TD Q72H, (Reported) Entered as Reported by: DIANN MARTINS on 07/30/17910 Gabapentin (Gabapentin) 100 Mg Capsule, 100 MG PO 0900,1300 Prescribed by: LORI ISLAS on 07/31/17924 Gabapentin (Gabapentin) 100 Mg Capsule, 200 MG PO HS Prescribed by: LORI ISLAS on 07/31/17924 Last Action: Continued Hydrocodone Bit/Acetaminophen (Lortab 5 Mg Tablet) 1 Tab Tab, 1 TAB PO Q4H PRN for PAIN-MODERATE, (Reported) Entered as Reported by: DIANN MARTINS on 07/30/17910 Last Action: Continued Insulin Glargine,Hum.rec.anlog (Lantus) 100 Unit/1 Ml Vial, 30 UNIT SQ DAILY, (Reported) Entered as Reported by: DIANN MARTINS on 07/30/17910 Losartan Potassium (Losartan Potassium) 100 Mg Tablet, 100 MG PO DAILY@0900 Prescribed by: LORI ISLAS on 07/31/17924 Memantine HCl (Memantine HCl) 10 Mg Tablet, 10 MG PO BID, (Reported) Entered as Reported by: DIANN MARTINS on 07/30/17910 Multivitamin (Daily Multiple Vitamin) 1 Each Tablet, 1 TAB PO DAILY, (Reported) Entered as Reported by: DIANN MARTINS on 07/30/17910 Naproxen Sodium (Naproxen Sodium) 220 Mg Tablet, 220 MG PO BID PRN for PAIN- MILD, (Reported) Entered as Reported by: DIANN MARTINS on 07/30/17910 Nystatin (Nystop) 60 Gm Powder, TP TID PRN for REDNESS, (Reported) Entered as Reported by: DIANN MARTINS on 07/30/17910 Pramipexole Di-HCl (Mirapex) 1 Mg Tablet, 1 MG PO TID, (Reported) Entered as Reported by: DIANN MARTINS on 07/30/17910 Last Action: Converted Sennosides (Senna) 8.6 Mg Tablet, 2 TAB PO DAILY, (Reported) Entered as Reported by: DIANN MARTINS on 07/30/17910 Sennosides (Senna) 8.6 Mg Tablet, 8.6 MG PO DAILY PRN for CONSTIPATION-5TH LINE, (Reported) Entered as Reported by: DIANN MARTINS on 07/30/17910 Solifenacin Succinate (Vesicare) 5 Mg Tablet, 5 MG PO DAILY, (Reported) Entered as Reported by: DIANN MARTINS on 07/30/17910 Past Onnfehi-Iglljv-Wctvka Hx Patient Social History Marrital Status: Living Status: LIVES AT [facility] Employed/Student: retired Tobacco Use?: No Smoking Status: Never a Smoker Use of E-Cig and/or Vaping dev: No Substance use?: No Alcohol Use?: No Pt feels they are or have been: No Immunizations Up To Date Date of Influenza Vaccine: Jan 31, 2021 First/Initial COVID19 Vaccinat: 05/22/2020 Second COVID19 Vaccination Isiah: 07/26/2020 Seasonal Allergies Seasonal Allergies: No Current Status Advance Directives: Yes Advance Directive Location: Copy placed in chart Communicates: Verbally Primary Language: South African Preferred Spoken Language: South African Is interpretation needed?: No Sensory deficits: Vision impairment Implanted or Applied Medical D: None Past Medical History Surgeries: Orthopedic Currently Using CPAP: No Currently Using BIPAP: No Hypertension Dementia, Parkinson's Disease Sexually Transmitted Disease: No HIV/AIDS: No Renal Failure Arthritis, Chronic Back Pain Diabetes, Insulin dep Cataract Hearing Impairment: Denies Breast Did You Recieve Any Treatments: Yes What Type of Treatment Did You: Surgical Intervention Blood Disorders: No Adverse Reaction/Blood Tranf: No Family Medical History Reviewed and Corrections made Cardiovascular disease G8 BROTHER G8 BROTHER Diabetes mellitus 19 FATHER G8 BROTHER G8 BROTHER G8 SISTER FH: cancer G8 BROTHER Myocardial infarction 19 MOTHER Heart Disease, Cancer, Diabetes, Hypertension Review of Systems Constitutional: No chills, No diaphoresis; fever, malaise, weakness EENTM: No hoarseness, No throat pain Respiratory: No cough, No dyspnea on exertion, No short of breath, No wheezing Cardiovascular: No palpitations Gastrointestinal: No abdominal pain; loss of appetite (DECREASED) Genitourinary: incontinence Musculoskeletal: muscle weakness Skin: no symptoms reported Psychiatric/Neurological: Denies Anxiety; Weakness All Other Systems Reviewed Negative Unless Noted: Yes Physical Exam Vital Signs Vital Signs - First Documented 03/05/21 13:48 Temp 36.6 Pulse 83 Resp 20 B/P (MAP) 150/65 (93) Pulse Ox 94 O2 Delivery Room Air Capillary Refill : Less Than 3 Seconds Height, Weight, BMI Height: 5'0" Weight: 160lbs. 0.0oz. 72.001058de; 23.90 BMI Method:Stated General Appearance: No Apparent Distress, WD/WN HEENT: PERRL/EOMI, TMs Normal, Normal ENT Inspection, Pharynx Normal Neck: Full Range of Motion, Non Tender, Supple Respiratory: Chest Non Tender, Lungs Clear, Normal Breath Sounds, No Accessory Muscle Use, No Respiratory Distress Cardiovascular: Regular Rate, Rhythm, Normal Peripheral Pulses Gastrointestinal: Normal Bowel Sounds, Non Tender, Soft Rectal: Deferred Extremity: Normal Capillary Refill, Non Tender, No Pedal Edema Neurologic/Psychiatric: Disoriented, Other (GROGGY THIS MORNING) Skin: Warm/Dry Assessment/Plan Assessment and Plan ACUTE DEHYDRATION ACUTE ON CHRONIC RENAL FAILURE URINARY TRACT INFECTION UNCONTROLLED DIABETES MELLITUS CHRONIC HYPERTENSION DEMENTIA PARKINSON'S DISEASE ACUTE DEHYDRATION WITH ACUTE ON CHRONIC RENAL FAILURE - REPLENISH WITH IV FLUIDS, MONITOR LABS - MONITOR LABS, RENAL FUNCTION SHOULD IMPROVE WITH HYDRATION URINARY TRACT INFECTION - IV ROCEPHIN, MONITOR LABS/URINE CULTURE REPORT UNCONTROLLED DIABETES MELLITUS - RESUME HOME REGIMEN, MONITOR FSBS. CHRONIC HYPERTENSION - WILL RESUME HOME REGIMEN ONCE RECONCILED BY PHARMACY DEMENTIA AND PARKINSON'S DISEASE - RESUME HOME REGIMEN. DVT PROPHYLAXIS WITH LOVENOX AND SCD'S GI PROPHYLAXIS WITH PEPCID Admission Diagnosis ACUTE DEHYDRATION ACUTE ON CHRONIC RENAL FAILURE URINARY TRACT INFECTION UNCONTROLLED DIABETES MELLITUS CHRONIC HYPERTENSION DEMENTIA PARKINSON'S DISEASE Admission Status: Inpatient Order (span 2 midnights) Reason for Inpatient Admission: INPT ADMISSION FOR URINARY TRACT INFECTION WITH DEHYDRATION - WILL REQUIRE AT LEAST 48 HOURS TO 72 HOURS IN THE HOSPITAL FOR STABILIZATION AND SENSITIVITY REPORT ON HER URINE CX LORI ISLAS MD Mar 05, 2021 19:06
[2021-03-05] MEDS ORDERED: HYDROcodone/APAP 5 MG/325 MG (LORTAB) TAB PO PRN (19:15)
[2021-03-05 19:26] VITALS: BP 163/81
[2021-03-05] MEDS: GABAPENTIN 100 MG (NEURONTIN) CAP PO SCH (20:43)
[2021-03-05] MEDS: SINEMET 25/100 (CARBIDOPA/LEVODOPA) TAB PO SCH (20:43)
[2021-03-05] MEDS: PRAMIPEXOLE 0.5 MG TAB (MIRAPEX) PO SCH (20:43)
[2021-03-05] MEDS: DICLOFENAC 1% GEL 100 GM (VOLTAREN) TUBE TP SCH (20:43)
[2021-03-05] MEDS ORDERED: NON-FORMULARY MEDICATION 1 EA EA (Pramipexole Di-HCl (Mirapex) 1 MG) PO SCH (21:00)
[2021-03-05 23:48] VITALS: BP 133/96
[2021-03-06] MEDS: LACTATED RINGERS 1,000 ML IV SCH ×3 (00:53→16:56)
[2021-03-06 04:00] VITALS: BP 153/70
[2021-03-06] MEDS: inSUlin ASPART (NovoLOG) 1 UNIT/0.01 ML (CHARGE PER UNIT) SC SCH ×4 (05:33→20:35)
[2021-03-06 07:35] LABS: BASOPHILS # (AUTO) 0.1 10^3/uL (0.0-0.1); HEMOGLOBIN 12.3 g/dL (11.5-16.0); MEAN CORPUSCULAR VOLUME 97 fL (80-99)
[2021-03-06 07:37] LABS: BASOPHILS % (AUTO) 1 % (0-10); EOSINOPHILS # (AUTO) 0.2 10^3/uL (0.0-0.3); EOSINOPHILS % (AUTO) 2 % (0-10); HEMATOCRIT 40 % (35-52); LYMPHOCYTES # (AUTO) 1.8 10^3/uL (1.0-4.0); LYMPHOCYTES % (AUTO) 16 % (12-44); MEAN CORPUSCULAR HEMOGLOBIN 30 pg (25-34); MEAN CORPUSCULAR HGB CONC 31 g/dL (32-36); MONOCYTES # (AUTO) 0.6 10^3/uL (0.0-1.0); MONOCYTES % (AUTO) 5 % (0-12); NEUTROPHILS # (AUTO) 8.3 10^3/uL (1.8-7.8); NEUTROPHILS % (AUTO) 76 % (42-75); PLATELET COUNT 113 10^3/uL (130-400)
[2021-03-06 07:47] LABS: POTASSIUM 4.1 MMOL/L (3.6-5.0)
[2021-03-06 07:52] LABS: CREATININE SERUM 1.44 MG/DL (0.60-1.30)
[2021-03-06 08:13] VITALS: BP 176/77
--- NOTE | 2021-03-06 08:22 | Progress Note ---
Subjective Subjective Date Seen by Provider: Mar 06, 2021 Time Seen by Provider: 08:22 PT IS AN 85 Y/O FEMALE WHO IS KNOWN TO ME FROM CLINIC. SHE PRESENTED TO THE ER FOR CONFUSION, WEAKNESS AND FEVER. TODAY SHE IS SITTING UP IN BED, EATING BREAKFAST WITH A [employer] STUDENT AT HER BEDSIDE ASSISTING HER WITH EATING. SHE DOES NOT REMEMBER ME COMING IN TO SEE HER LAST NIGHT, HER SPEECH IS SOFT, AND SHE IS STILL CONFUSED BASED ON HER SOMEWHAT DIFFICULT TO UNDERSTAND ANSWERS TO MY QUESTIONS. Review of Systems General: Fatigue, Malaise, Appetite (DECREASED) Pulmonary: Cough (FAINT) Cardiovascular: No: Orthopnea, Edema Gastrointestinal: No: Nausea, Vomiting, Abdominal Pain Genitourinary: Incontinence Neurological: Weakness, Confusion All Other Systems Reviewed All Other Systems Reviewed: Yes Objective Exam Vital Signs Vital Signs Date Time Temp Pulse Resp B/P (MAP) Pulse Ox O2 Delivery O2 Flow Rate FiO2 03/06/21 04:00 36.3 73 18 153/70 (97) 94 Room Air 03/05/21 23:48 36.2 73 18 133/96 (108) 95 Room Air 03/05/21 20:45 Room Air 03/05/21 19:26 36.6 72 23 163/81 (108) 98 Room Air 03/05/21 15:59 36.7 77 20 154/76 (102) 97 Room Air 03/05/21 15:39 Room Air 03/05/21 15:31 75 18 156/62 95 Room Air 03/05/21 13:48 36.6 83 20 150/65 (93) 94 Room Air I & O 03/06/21 07:00 Intake Total 2730 ml Balance 2730 ml General Appearance: No Apparent Distress, WD/WN HEENT: PERRL/EOMI, Pharynx Normal Neck: Full Range of Motion, Supple Respiratory: Chest Non Tender, Lungs Clear, No Accessory Muscle Use, No Respiratory Distress, Decreased Breath Sounds Cardiovascular: Regular Rate, Rhythm, Normal Peripheral Pulses Gastrointestinal: Normal Bowel Sounds, Non Tender, Soft Rectal: Deferred Extremity: Normal Capillary Refill, Non Tender, Pedal Edema (TRACE AT ANKLES) Neurologic/Psychiatric: Disoriented, Other (GROGGY THIS MORNING) Skin: Warm/Dry Results Lab Laboratory Tests 03/05/21 13:57: White Blood Count 13.0H, Red Blood Count 4.16, Hemoglobin 12.5, Hematocrit 41, Mean Corpuscular Volume 99, Mean Corpuscular Hemoglobin 30, Mean Corpuscular Hemoglobin Concent 31L, Red Cell Distribution Width 16.1H, Platelet Count 135, Mean Platelet Volume 12.6H, Immature Granulocyte % (Auto) 1, Neutrophils (%) (Auto) 86H, Lymphocytes (%) (Auto) 8L, Monocytes (%) (Auto) 6, Eosinophils (%) (Auto) 0, Basophils (%) (Auto) 1, Neutrophils # (Auto) 11.1H, Lymphocytes # (Auto) 1.0, Monocytes # (Auto) 0.7, Eosinophils # (Auto) 0.1, Basophils # (Auto) 0.1, Immature Granulocyte # (Auto) 0.1, Neutrophils % (Manual) 86, Lymphocytes % (Manual) 10, Monocytes % (Manual) 4, Blood Morphology Comment NORMAL, Prothrombin Time 14.4, INR Comment 1.1, Sodium Level 150H, Potassium Level 4.7, Chloride Level 114H, Carbon Dioxide Level 21, Anion Gap 15H, Blood Urea Nitrogen 73H, Creatinine 2.49H, Estimat Glomerular Filtration Rate 18, BUN/Creatinine Ratio 29, Glucose Level 473*H, Calcium Level 8.6, Corrected Calcium 8.8, Total Bilirubin 0.4, Aspartate Amino Transf (AST/SGOT) 46H, Alanine Aminotransferase (ALT/SGPT) 16, Alkaline Phosphatase 95, B-Type Natriuretic Peptide 140.6H, Total Protein 7.2, Albumin 3.7 03/05/21 15:04: SARS-CoV-2 RNA (RT-PCR) Not Detected 03/05/21 16:50: Glucometer 226H 03/05/21 20:30: Glucometer 200H 03/06/21 05:31: Glucometer 94 03/06/21 07:27: White Blood Count 11.0, Red Blood Count 4.12, Hemoglobin 12.3, Hematocrit 40, Mean Corpuscular Volume 97, Mean Corpuscular Hemoglobin 30, Mean Corpuscular Hemoglobin Concent 31L, Red Cell Distribution Width 15.7H, Platelet Count 113L, Mean Platelet Volume 12.0, Immature Granulocyte % (Auto) 1, Neutrophils (%) (Auto) 76H, Lymphocytes (%) (Auto) 16, Monocytes (%) (Auto) 5, Eosinophils (%) (Auto) 2, Basophils (%) (Auto) 1, Neutrophils # (Auto) 8.3H, Lymphocytes # (Auto) 1.8, Monocytes # (Auto) 0.6, Eosinophils # (Auto) 0.2, Basophils # (Auto) 0.1, Immature Granulocyte # (Auto) 0.1, Percent Immature Platelet Fraction 4.7, Sodium Level 148H, Potassium Level 4.1, Chloride Level 112H, Carbon Dioxide Level 26, Anion Gap 10, Blood Urea Nitrogen 44H, Creatinine 1.44H, Estimat Glomerular Filtration Rate 34, BUN/Creatinine Ratio 31, Glucose Level 105, Calcium Level 9.0 Assessment/Plan Assessment/Plan Admission Dx ACUTE DEHYDRATION ACUTE ON CHRONIC RENAL FAILURE URINARY TRACT INFECTION UNCONTROLLED DIABETES MELLITUS CHRONIC HYPERTENSION DEMENTIA PARKINSON'S DISEASE Assessment and Plan ACUTE DEHYDRATION ACUTE ON CHRONIC RENAL FAILURE URINARY TRACT INFECTION UNCONTROLLED DIABETES MELLITUS CHRONIC HYPERTENSION DEMENTIA PARKINSON'S DISEASE ACUTE DEHYDRATION WITH ACUTE ON CHRONIC RENAL FAILURE - REPLENISH WITH IV FLUIDS, MONITOR LABS - MONITOR LABS, RENAL FUNCTION SHOULD IMPROVE WITH HYDRATION URINARY TRACT INFECTION - IV ROCEPHIN, MONITOR LABS/URINE CULTURE REPORT (DONE OUTPATIENT) UNCONTROLLED DIABETES MELLITUS - RESUME HOME REGIMEN, MONITOR FSBS. CHRONIC HYPERTENSION - WILL RESUME HOME REGIMEN DEMENTIA AND PARKINSON'S DISEASE - RESUME HOME REGIMEN. DVT PROPHYLAXIS WITH LOVENOX AND SCD'S GI PROPHYLAXIS WITH PEPCID Admission Dx ACUTE DEHYDRATION ACUTE ON CHRONIC RENAL FAILURE URINARY TRACT INFECTION UNCONTROLLED DIABETES MELLITUS CHRONIC HYPERTENSION DEMENTIA PARKINSON'S DISEASE Clinical Quality Measures Admission Status Admission Dx ACUTE DEHYDRATION ACUTE ON CHRONIC RENAL FAILURE URINARY TRACT INFECTION UNCONTROLLED DIABETES MELLITUS CHRONIC HYPERTENSION DEMENTIA PARKINSON'S DISEASE LORI ROMERO MD Mar 06, 2021 08:22
[2021-03-06] MEDS: cefTRIAXone 1,000 MG/SWFI 10 ML IV PUSH IV SCH ×2 (09:42)
[2021-03-06] MEDS: PRAMIPEXOLE 0.5 MG TAB (MIRAPEX) PO SCH ×3 (09:42→20:13)
[2021-03-06] MEDS: LOSARTAN 100 MG (COZAAR) TABLET PO SCH (09:43)
[2021-03-06] MEDS: SINEMET 25/100 (CARBIDOPA/LEVODOPA) TAB PO SCH ×4 (09:43→20:14)
[2021-03-06] MEDS: DICLOFENAC 1% GEL 100 GM (VOLTAREN) TUBE TP SCH ×4 (09:44→20:24)
[2021-03-06 11:27] VITALS: BP 137/65
[2021-03-06] MEDS ORDERED: LOSA50TA63 PO (14:01)
[2021-03-06] MEDS ORDERED: MULT-1136 PO (14:01)
[2021-03-06] MEDS ORDERED: SOLI10TA7 PO (14:01)
[2021-03-06] MEDS ORDERED: AMAN100C18 PO (14:01)
[2021-03-06] MEDS ORDERED: CYAN500011 PO (14:01)
[2021-03-06] MEDS ORDERED: PROP10DR3 OU (14:01)
[2021-03-06] MEDS ORDERED: GABA-486 PO ×2 (14:01)
[2021-03-06] MEDS ORDERED: ASCO-262 PO (14:01)
[2021-03-06] MEDS ORDERED: EYEL1MED TP (14:01)
[2021-03-06] MEDS ORDERED: FENT1PAT8 TD (14:01)
[2021-03-06] MEDS ORDERED: MELA3TAB39 PO (14:01)
[2021-03-06] MEDS ORDERED: QUET25TA35 PO (14:01)
[2021-03-06] MEDS ORDERED: LOSA25TA41 PO (14:01)
[2021-03-06 15:24] VITALS: BP 146/68
[2021-03-06] MEDS ORDERED: FENTANYL PATCH REMOVAL TP SCH (19:59)
[2021-03-06 20:00] VITALS: BP 128/75
[2021-03-06] MEDS ORDERED: fentaNYL PATCH 25 MCG (DURAGESIC) TD SCH (20:00)
[2021-03-06] MEDS: GABAPENTIN 100 MG (NEURONTIN) CAP PO SCH (20:14)
[2021-03-06] MEDS ORDERED: GABAPENTIN 100 MG (NEURONTIN) CAP PO SCH (21:30)
[2021-03-06] MEDS ORDERED: SENNOSIDES 8.6 MG (SENOKOT) TAB PO PRN (21:30)
[2021-03-06] MEDS ORDERED: AMANTADINE 100 MG (SYMMETREL) CAP PO NR (22:30)
[2021-03-06] MEDS: QUEtiapine 25 MG (SEROquel) TAB IMMEDIATE RELEASE PO SCH (23:02)
[2021-03-07] VITALS (8 sets, daily range): BP systolic 144–179; BP diastolic 58–81
[2021-03-07] MEDS: TROSPIUM 20 MG (SANCTURA) TAB PO SCH ×2 (06:03→16:38)
[2021-03-07] MEDS: inSUlin ASPART (NovoLOG) 1 UNIT/0.01 ML (CHARGE PER UNIT) SC SCH ×4 (06:08→20:51)
[2021-03-07] MEDS: SINEMET 25/100 (CARBIDOPA/LEVODOPA) TAB PO SCH ×5 (06:10→20:51)
[2021-03-07] MEDS: LACTATED RINGERS 1,000 ML IV SCH ×2 (06:56)
[2021-03-07 08:14] LABS: HEMATOCRIT 45 % (35-52); HEMOGLOBIN 13.9 g/dL (11.5-16.0); MEAN CORPUSCULAR HEMOGLOBIN 29 pg (25-34); MEAN CORPUSCULAR HGB CONC 31 g/dL (32-36); MEAN CORPUSCULAR VOLUME 94 fL (80-99); MEAN PLATELET VOLUME 12.5 fL (9.0-12.2); PLATELET COUNT 117 10^3/uL (130-400); WHITE BLOOD COUNT 10.1 10^3/uL (4.3-11.0)
--- NOTE | 2021-03-07 08:22 | Progress Note ---
Subjective Subjective PT IS AN 85 Y/O FEMALE WHO IS KNOWN TO ME FROM CLINIC. SHE PRESENTED TO THE ER FOR CONFUSION, WEAKNESS AND FEVER. TODAY SHE IS SITTING UP IN BED, EATING BREAKFAST WITH A [employer] STUDENT AT HER BEDSIDE ASSISTING HER WITH EATING. SHE DOES NOT REMEMBER ME COMING IN TO SEE HER LAST NIGHT, HER SPEECH IS SOFT, AND SHE IS STILL CONFUSED BASED ON HER SOMEWHAT DIFFICULT TO UNDERSTAND ANSWERS TO MY QUESTIONS. Review of Systems General: Fatigue, Malaise, Appetite (DECREASED) Pulmonary: Cough (FAINT) Cardiovascular: No: Orthopnea, Edema Gastrointestinal: No: Nausea, Vomiting, Abdominal Pain Genitourinary: Incontinence Neurological: Weakness, Confusion All Other Systems Reviewed All Other Systems Reviewed: Yes Objective Exam Vital Signs Vital Signs Date Time Temp Pulse Resp B/P (MAP) Pulse Ox O2 Delivery O2 Flow Rate FiO2 03/07/21 03:48 36.4 88 18 162/76 (104) 97 Room Air 03/07/21 00:32 36.5 71 18 169/79 (109) 98 Room Air 03/06/21 20:54 36.7 03/06/21 20:00 Room Air 03/06/21 20:00 36.7 70 18 128/75 (92) 99 Room Air 03/06/21 15:24 36.9 71 20 146/68 (94) 95 Room Air 03/06/21 11:27 36.5 80 18 137/65 (89) 95 Room Air 03/06/21 09:00 Room Air I & O 03/07/21 07:00 Intake Total 1005 ml Output Total 600 ml Balance 405 ml General Appearance: No Apparent Distress, WD/WN HEENT: PERRL/EOMI, Pharynx Normal Neck: Full Range of Motion, Supple Respiratory: Chest Non Tender, Lungs Clear, No Accessory Muscle Use, No Respiratory Distress, Decreased Breath Sounds Cardiovascular: Regular Rate, Rhythm, Normal Peripheral Pulses Gastrointestinal: Normal Bowel Sounds, Non Tender, Soft Rectal: Deferred Extremity: Normal Capillary Refill, Non Tender, Pedal Edema (TRACE AT ANKLES) Neurologic/Psychiatric: Disoriented, Other (GROGGY THIS MORNING) Skin: Warm/Dry Results Lab Laboratory Tests 03/06/21 10:25: Glucometer 125H 03/06/21 15:23: Glucometer 147H 03/06/21 20:20: Glucometer 192H 03/07/21 05:47: Glucometer 85 03/07/21 07:45: White Blood Count 10.1, Red Blood Count 4.72, Hemoglobin 13.9, Hematocrit 45, Mean Corpuscular Volume 94, Mean Corpuscular Hemoglobin 29, Mean Corpuscular Hemoglobin Concent 31L, Red Cell Distribution Width 14.7H, Platelet Count 117L, Mean Platelet Volume 12.5H 03/07/21 07:50: Assessment/Plan Assessment/Plan Admission Dx ACUTE DEHYDRATION ACUTE ON CHRONIC RENAL FAILURE URINARY TRACT INFECTION UNCONTROLLED DIABETES MELLITUS CHRONIC HYPERTENSION DEMENTIA PARKINSON'S DISEASE Assessment and Plan ACUTE DEHYDRATION ACUTE ON CHRONIC RENAL FAILURE URINARY TRACT INFECTION UNCONTROLLED DIABETES MELLITUS CHRONIC HYPERTENSION DEMENTIA PARKINSON'S DISEASE ACUTE DEHYDRATION WITH ACUTE ON CHRONIC RENAL FAILURE - REPLENISH WITH IV FLUIDS, MONITOR LABS - MONITOR LABS, RENAL FUNCTION SHOULD IMPROVE WITH HYDRATION URINARY TRACT INFECTION - IV ROCEPHIN, MONITOR LABS/URINE CULTURE REPORT (DONE OUTPATIENT) UNCONTROLLED DIABETES MELLITUS - RESUME HOME REGIMEN, MONITOR FSBS. CHRONIC HYPERTENSION - WILL RESUME HOME REGIMEN DEMENTIA AND PARKINSON'S DISEASE - RESUME HOME REGIMEN. DVT PROPHYLAXIS WITH LOVENOX AND SCD'S GI PROPHYLAXIS WITH PEPCID Admission Dx ACUTE DEHYDRATION ACUTE ON CHRONIC RENAL FAILURE URINARY TRACT INFECTION UNCONTROLLED DIABETES MELLITUS CHRONIC HYPERTENSION DEMENTIA PARKINSON'S DISEASE Clinical Quality Measures Admission Status Admission Dx ACUTE DEHYDRATION ACUTE ON CHRONIC RENAL FAILURE URINARY TRACT INFECTION UNCONTROLLED DIABETES MELLITUS CHRONIC HYPERTENSION DEMENTIA PARKINSON'S DISEASE LORI ROMERO MD Mar 07, 2021 08:22
[2021-03-07 08:24] LABS: ALBUMIN 4.1 GM/DL (3.2-4.5); BILIRUBIN,TOTAL 0.8 MG/DL (0.1-1.0); CREATININE SERUM 1.29 MG/DL (0.60-1.30); POTASSIUM 3.9 MMOL/L (3.6-5.0); TOTAL PROTEIN 8.2 GM/DL (6.4-8.2)
[2021-03-07] MEDS ORDERED: PHARMACY TO DOSE IM SCH (08:45)
[2021-03-07] MEDS ORDERED: NON-FORMULARY MEDICATION 1 EA EA (Eyelid Cleanser Combination #5 (Ocusoft Lid Scrub) 1 EAC TP SCH (09:00)
[2021-03-07] MEDS: DICLOFENAC 1% GEL 100 GM (VOLTAREN) TUBE TP SCH ×4 (09:24→20:51)
[2021-03-07] MEDS: cefTRIAXone 1,000 MG/SWFI 10 ML IV PUSH IV SCH ×2 (09:25)
[2021-03-07] MEDS: PRAMIPEXOLE 0.5 MG TAB (MIRAPEX) PO SCH ×3 (09:25→20:51)
[2021-03-07] MEDS: LOSARTAN 100 MG (COZAAR) TABLET PO SCH (09:25)
[2021-03-07] MEDS: AMANTADINE 100 MG (SYMMETREL) CAP PO SCH (09:26)
[2021-03-07] MEDS: GABAPENTIN 100 MG (NEURONTIN) CAP PO SCH ×3 (09:26→20:51)
[2021-03-07] MEDS: ARTIFICAL TEARS 0.4 ML UNIT DOSE (REFRESH PLUS) OU SCH ×4 (09:29→20:51)
[2021-03-07] MEDS: ENOXAPARIN 30 MG/0.3 ML (LOVENOX) SYR SC SCH (09:36)
[2021-03-07] MEDS ORDERED: amLODIPine 5 MG (NORVASC) TAB PO NR (16:30)
[2021-03-07] MEDS: QUEtiapine 25 MG (SEROquel) TAB IMMEDIATE RELEASE PO SCH (20:51)
[2021-03-08] VITALS: BP 120/68
[2021-03-08] MEDS: LACTATED RINGERS 1,000 ML IV SCH (02:17)
[2021-03-08 04:50] VITALS: BP 166/74
[2021-03-08] MEDS ORDERED: DEXTROSE 50% 50 ML (IMS) SYR ONE (06:35)
[2021-03-08] MEDS: inSUlin ASPART (NovoLOG) 1 UNIT/0.01 ML (CHARGE PER UNIT) SC SCH ×2 (06:38→11:37)
[2021-03-08] MEDS: TROSPIUM 20 MG (SANCTURA) TAB PO SCH (06:40)
[2021-03-08] MEDS: SINEMET 25/100 (CARBIDOPA/LEVODOPA) TAB PO SCH ×3 (06:40→12:19)
[2021-03-08] MEDS: AMANTADINE 100 MG (SYMMETREL) CAP PO SCH (06:40)
[2021-03-08] MEDS ORDERED: DEXTROSE 50% 50 ML (IMS) SYR IV ONE (06:45)
[2021-03-08 08:00] VITALS: BP 131/73
[2021-03-08] MEDS: GABAPENTIN 100 MG (NEURONTIN) CAP PO SCH (08:07)
[2021-03-08] MEDS: LOSARTAN 100 MG (COZAAR) TABLET PO SCH (08:07)
[2021-03-08] MEDS: ARTIFICAL TEARS 0.4 ML UNIT DOSE (REFRESH PLUS) OU SCH ×2 (08:08→12:19)
[2021-03-08] MEDS: PRAMIPEXOLE 0.5 MG TAB (MIRAPEX) PO SCH ×2 (08:08→12:20)
[2021-03-08] MEDS ORDERED: DICL100G13 TP (08:09)
[2021-03-08] MEDS: ENOXAPARIN 30 MG/0.3 ML (LOVENOX) SYR SC SCH (08:09)
--- NOTE | 2021-03-08 08:12 | Discharge Summary ---
Diagnosis/Chief Complaint Date of Admission Mar 05, 2021 at 14:31 Date of Discharge Reason Hospital Visit PT IS AN 85 Y/O FEMALE WHO IS KNOWN TO ME FROM CLINIC AND PREVIOUS HOSPITAL IZATIONS. MRS. QUEEN RESIDES AT [facility], A PHONE CALL WAS PLACED THIS MORNING CONCERNED FOR HER HEALTH - SHE HAD LABS WHICH SHOWED ELEVATED RENAL FUNCTION AND DEHYDRATION, THE FACILITY WAS ADVISED TO SEND HER TO THE ER FOR EVALUATION DUE TO HER ACUTE DECLINE AND NEED FOR EMERGENT EVALUATION. SHE WAS FOUND TO BE DEHYDRATED AND HAD A URINARY TRACT INFECTION AND WAS ADMITTED TO THE HOSPITAL FOR IV FLUIDS, AND IV ANTIBIOTICS. Discharge Summary Discharge Physical Examination Allergies: Coded Allergies: amoxicillin (Verified Allergy, Unknown, 03/05/21) clavulanic acid (Verified Allergy, Unknown, 03/05/21) morphine (Verified Allergy, Unknown, 12/14/07) Vitals & I&Os Vital Signs Date Time Temp Pulse Resp B/P (MAP) Pulse Ox O2 Delivery O2 Flow Rate FiO2 03/08/21 04:50 36.1 76 20 166/74 (104) 98 Room Air Hospital Course Pending Labs Laboratory Tests 03/08/21 06:31: Glucometer 13 03/08/21 06:33: Glucometer 19 03/08/21 06:49: Glucometer 105 Discharge Instructions to patient/family Please see electronic discharge instructions given to patient. Discharge Medications Reviewed and agree with Discharge Medication list on patient's Discharge Instruction sheet LORI ROMERO MD Mar 08, 2021 08:12
[2021-03-08] MEDS ORDERED: BISACODYL 10 MG SUPP (DULCOLAX) PR ONE (08:15)
[2021-03-08] MEDS: DICLOFENAC 1% GEL 100 GM (VOLTAREN) TUBE TP SCH ×2 (08:20→12:20)
[2021-03-08] MEDS ORDERED: CEFTRIAXONE 1000 MG/50 ML IV SCH (09:00)
[2021-03-08] MEDS ORDERED: PRE MIX IV SCH (09:00)
[2021-03-08] MEDS ORDERED: SULF1TAB38 PO (09:45)
--- NOTE | 2021-03-08 09:45 | Discharge Inst-Skilled Nursing ---
Discharge Inst-Skilled NF Reconcile Patient Problems Problems Reviewed?: Yes Patient Instructions Patient Problems: PARKINSONS DISEASE HYPERTENSION DIABETES MELLITUS URINARY TRACT INFECTION ACUTE RENAL FAILURE Consult/Follow Up/Orders Follow Up Appt.: [facility] Skilled NF Admit to: [facility] [place] Certification (SNF) I certify that SNF services are required to be given on an inpatient basis because of the above named patient's need for group home care on a continuing basis for the conditions(s) for which he/she was receiving inpatient hospital services prior to his/her transfer to the [facility]. Senior Living Facility Order: Nursing Services, Physical Therapy-Evaluate & Treat, Speech Language-Evaluate & Treat Oxygen Delivery Method: Room Air Discharge Diet: Regular Diet Daily Activity as Tolerated: Yes Resuscitation Status: Do Not Resuscitate New & Resume Previous Orders Lori Islas Mar 08, 2021 08:11 Medication List: Active Scripts Active Diclofenac Sodium 100 Gm Gel..gram. 4 Gm TP QID PLEASE APPLY TO AFFECT JOINTS Reported Melatonin 3 Mg Tablet 3 Mg PO HS PRN Fentanyl Patch 25 MCG (Fentanyl) 1 Each Patch.td72 1 Patch TD Q72H Losartan Potassium 25 Mg Tablet 25 Mg PO HS Quetiapine Fumarate 25 Mg Tablet 25 Mg PO HS Gabapentin 100 Mg Capsule 200 Mg PO HS TAKES 2 (100MG) CAPS Solifenacin Succinate 10 Mg Tablet 10 Mg PO HS Amantadine (Amantadine HCl) 100 Mg Capsule 100 Mg PO 0700,1300,2100 Losartan Potassium 50 Mg Tablet 50 Mg PO DAILY HOLD MED AND NOTIFY MD IS SBP LESS THAN 100 OR DBP LESS THAN 60 Vitamin C (Ascorbate Calcium) 500 Mg Tablet 500 Mg PO BID Vitamin B-12 (Cyanocobalamin (Vitamin B-12)) 5,000 Mcg Capsule 5,000 Mcg PO DAILY Gabapentin 100 Mg Capsule 100 Mg PO 0800,1600 Ocusoft Lid Scrub (Eyelid Cleanser Combination #5) 1 Each Med..pad 1 Each TP BID Systane Balance (Propylene Glycol) 10 Ml Drops 1 Drop OU QID Multivitamin 1 Each Tablet 1 Each PO DAILY Carbidopa-Levodopa 25-100 Tab (Carbidopa/Levodopa) 1 Each Tablet 1 Tab PO 0730,1030,1330,1630,1930 Amoxicillin 500 Mg Capsule 2,000 Mg PO UD PRN TAKE 4 (500MG) CAPSULES 1 HOUR BEFORE DENTAL APPOINTMENT Mirapex (Pramipexole Di-HCl) 1 Mg Tablet 1 Mg PO TID Senna (Sennosides) 8.6 Mg Tablet 8.6 Tab PO DAILY PRN Naproxen Sodium 220 Mg Tablet 220 Mg PO BID PRN Lantus (Insulin Glargine,Hum.rec.anlog) 100 Unit/1 Ml Vial 23 Unit SQ DAILY Lab results: Laboratory Tests Test 03/07/21 11:07 03/07/21 15:40 03/07/21 20:50 03/08/21 06:31 Range/Units Glucometer 135 H 154 H 112 H 13 *L 70-110 MG/DL Test 03/08/21 06:33 03/08/21 06:49 Range/Units Glucometer 19 *L 105 70-110 MG/DL My orders: Orders - LORI ISLAS MD Ceftriaxone 1 Gm Iv (Pre-Mix) (Rocephin (03/08/21 09:00) Amlodipine Tablet (Norvasc Tablet) (03/07/21 16:30) D50w (Emergency) Syringe (Dextrose 50% 5 (03/08/21 06:45) D50w (Emergency) Syringe (Dextrose 50% 5 (03/08/21 06:35) Bisacodyl Suppository (Dulcolax Supposit (03/08/21 08:15) Attending Discharge Inpt/Inobs (03/08/21 09:43) LORI ISLAS MD Mar 08, 2021 08:12
[2021-03-08 12:00] VITALS: BP 123/67
== END 2021-03-08 14:00 | DRG 683 ==
LOC: EDUNIT# 13:48 → ER 13:50 → 4TH 14:31
PROVIDERS: ADMIT Family Medicine; ATTEND Family Medicine
DX: N17.9 Acute kidney failure, unspecified (principal); N39.0 Urinary tract infection, site not specified; E86.0 Dehydration; Z20.822 Contact with and (suspected) exposure to COVID-19; I12.9 Hypertensive chronic kidney disease with stage 1 through stage 4 chronic kidney disease, or unspecified chronic kidney disease; E11.22 Type 2 diabetes mellitus with diabetic chronic kidney disease; N18.9 Chronic kidney disease, unspecified; Z66 Do not resuscitate; G20 Parkinson's disease; F02.80 Dementia in other diseases classified elsewhere, unspecified severity, without behavioral disturbance, psychotic disturbance, mood disturbance, and anxiety; E11.65 Type 2 diabetes mellitus with hyperglycemia; H54.7 Unspecified visual loss; Z88.1 Allergy status to other antibiotic agents; Z88.5 Allergy status to narcotic agent; Z79.899 Other long term (current) drug therapy; Z79.4 Long term (current) use of insulin; Z85.3 Personal history of malignant neoplasm of breast; Z96.652 Presence of left artificial knee joint; Z90.12 Acquired absence of left breast and nipple
CPT/HCPCS: 36415; 70450; 71045; 80048; 80053; 82947; 83880; 85007; 85025; 85027; 85610; 87636

== ENCOUNTER 2021-03-29 09:25 | Emergency (ER) | payer MEDICARE, OTHER ==
[~2021-03-29] VITALS: Ht 157.4 cm; Wt 62.0 kg
[~2021-03-29 09:25] MED LIST changes: +AMAN100C20 PO; +ASCO-262 PO; +CYAN500011 PO; +DICL100G13 TP; +EYEL1MED TP; +FENT1PAT8 TD; +LOSA25TA41 PO; +MELA3TAB39 PO; +MULT-1136 PO; +PROP10DR3 OU; +QUET25TA35 PO; +SOLI10TA7 PO; +SULF1TAB38 PO
--- NOTE | 2021-03-29 09:30 | ED Neurological Problem ---
General Stated Complaint: SEIZURE Source: patient Exam Limitations: no limitations History of Present Illness Date Seen by Provider: Mar 29, 2021 Time Seen by Provider: 09:27 Initial Comments 85-year-old female with past medical history of Parkinson's disease, hypertension, diabetes, CKD coming in via EMS from her senior living due to increasing tremors. She does have tremors with her Parkinson's, but she reportedly had a fall yesterday, and then noticed she has tremoring more, and they wanted to be sure she was not having seizures. EMS reports her blood sugar was 57 so they started D10 NS. Further elements of the history and physical are unable to be obtained as the patient is essentially nonverbal at baseline. Allergies and Home Medications Allergies Coded Allergies: amoxicillin (Verified Allergy, Unknown, 03/05/21) clavulanic acid (Verified Allergy, Unknown, 03/05/21) morphine (Verified Allergy, Unknown, 12/14/07) Patient Home Medication List Home Medication List Reviewed: Yes Amantadine HCl (Amantadine) 100 Mg Capsule, 100 MG PO 0700,1300,2100, (Reported) Entered as Reported by: MADHU CASTRO on 03/06/21 1401 Amoxicillin (Amoxicillin) 500 Mg Capsule, 2,000 MG PO UD PRN for DENTAL APPOINTMENT , (Reported) Entered as Reported by: DIANN MARTINS on 07/30/17 0911 Ascorbate Calcium (Vitamin C) 500 Mg Tablet, 500 MG PO BID, (Reported) Entered as Reported by: MADHU CASTRO on 03/06/21 1401 Carbidopa/Levodopa (Carbidopa-Levodopa 25-100 Tab) 1 Each Tablet, 1 TAB PO 0730,1030,1330,1630,1930, (Reported) Entered as Reported by: DIANN MARTINS on 07/30/17 0911 Cyanocobalamin (Vitamin B-12) (Vitamin B-12) 5,000 Mcg Capsule, 5,000 MCG PO DAILY, (Reported) Entered as Reported by: MADHU CASTRO on 03/06/21 1401 Diclofenac Sodium (Diclofenac Sodium) 100 Gm Gel..gram., 4 GM TP QID Prescribed by: LORI ROMERO on 03/08/21 0809 Eyelid Cleanser Combination #5 (Ocusoft Lid Scrub) 1 Each Med..pad, 1 EACH TP BID, (Reported) Entered as Reported by: MADHU CASTRO on 03/06/211400 Fentanyl (Fentanyl Patch 25 MCG) 1 Each Patch.td72, 1 PATCH TD Q72H, (Reported) Entered as Reported by: MADHU CASTRO on 03/06/211400 Gabapentin (Gabapentin) 100 Mg Capsule, 100 MG PO 0800,1600, (Reported) Entered as Reported by: MADHU CASTRO on 03/06/211400 Gabapentin (Gabapentin) 100 Mg Capsule, 200 MG PO HS, (Reported) Entered as Reported by: MADHU CASTRO on 03/06/211400 Insulin Glargine,Hum.rec.anlog (Lantus) 100 Unit/1 Ml Vial, 23 UNIT SQ DAILY, (Reported) Entered as Reported by: DIANN MARTINS on 07/30/17910 Losartan Potassium (Losartan Potassium) 50 Mg Tablet, 50 MG PO DAILY, (Reported) Entered as Reported by: MADHU CASTRO on 03/06/211400 Losartan Potassium (Losartan Potassium) 25 Mg Tablet, 25 MG PO HS, (Reported) Entered as Reported by: MADHU CASTRO on 03/06/211400 Melatonin (Melatonin) 3 Mg Tablet, 3 MG PO HS PRN for SLEEP, (Reported) Entered as Reported by: MADHU CASTRO on 03/06/211400 Multivitamin (Multivitamin) 1 Each Tablet, 1 EACH PO DAILY, (Reported) Entered as Reported by: MADHU CASTRO on 03/06/211400 Pramipexole Di-HCl (Mirapex) 1 Mg Tablet, 1 MG PO TID, (Reported) Entered as Reported by: DIANN MARTINS on 07/30/17910 Propylene Glycol (Systane Balance) 10 Ml Drops, 1 DROP OU QID, (Reported) Entered as Reported by: MADHU CASTRO on 03/06/211400 Quetiapine Fumarate (Quetiapine Fumarate) 25 Mg Tablet, 25 MG PO HS, (Reported) Entered as Reported by: MADHU CASTRO on 03/06/211400 Sennosides (Senna) 8.6 Mg Tablet, 8.6 TAB PO DAILY PRN for CONSTIPATION-5TH LINE, (Reported) Entered as Reported by: DIANN MARTINS on 4/4/18 0911 Solifenacin Succinate (Solifenacin Succinate) 10 Mg Tablet, 10 MG PO HS, (Reported) Entered as Reported by: MADHU CASTRO on 03/06/21 1401 Sulfamethoxazole/Trimethoprim (Bactrim Ds Tablet) 1 Each Tablet, 0.5 EACH PO BID Prescribed by: LORI ROMERO on 03/08/21 0945 Review of Systems Review of Systems Constitutional: No chills Eyes: No Symptoms Reported Ears, Nose, Mouth, Throat: no symptoms reported Respiratory: no symptoms reported Cardiovascular: no symptoms reported Gastrointestinal: no symptoms reported Genitourinary: no symptoms reported Musculoskeletal: no symptoms reported Skin: no symptoms reported Psychiatric/Neurological: Cognitive Dysfunction Endocrine: No Symptoms Reported Hematologic/Lymphatic: No Symptoms Reported All Other Systems Reviewed Negative Unless Noted: Yes Past Ggjhjjy-Rngmma-Bnfabz Hx Patient Social History Tobacco Use?: No Immunizations Up To Date Tetanus Booster (TDap): Less than 5yrs First/Initial COVID19 Vaccinat: 05/22/2020 Second COVID19 Vaccination Isiah: 07/26/2020 Seasonal Allergies Seasonal Allergies: No Past Medical History Surgery/Hospitalization HX: HX: PARKINSON'S DX, CKD, EDEMA, STRESS INCONTINENCE, UNSPECIFIED DEMENTIA, FALLS, HALLUCINATIONS, DYSPHAGIA (PUREED FOODS FOR MEALS), T2DM 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, MUSCLE WASTING AND ATROPHY, FOOT DROP RIGHT FOOT, PRIMARY HTN, UNSPECIFIED CONSTIPATION Surgeries: Yes (Left Mastectomy, Left knee replacement x 2, Left knee repairs) Orthopedic Respiratory: No Currently Using CPAP: No Currently Using BIPAP: No Cardiac: Yes Hypertension Neurological: Yes (Benign tremor) Dementia, Parkinson's Disease Reproductive Disorders: No Sexually Transmitted Disease: No HIV/AIDS: No Genitourinary: Yes (URINARY INCONTINENCE) Renal Failure Gastrointestinal: No Musculoskeletal: Yes Arthritis, Chronic Back Pain Endocrine: Yes ( DM Type II) Diabetes, Insulin dep HEENT: Yes Cataract Hearing Impairment: Denies Cancer: Yes (left breast mastectomy) Breast Did You Recieve Any Treatments: Yes What Type of Treatment Did You: Surgical Intervention Psychosocial: No Integumentary: Yes (lt calf venous insufficiency) Blood Disorders: No Adverse Reaction/Blood Tranf: No Family Medical History Cardiovascular disease G8 BROTHER G8 BROTHER Diabetes mellitus 19 FATHER G8 BROTHER G8 BROTHER G8 SISTER FH: cancer G8 BROTHER Myocardial infarction 19 MOTHER Heart Disease, Cancer, Diabetes, Hypertension Physical Exam Vital Signs Vital Signs - First Documented 03/29/21 09:29 Temp 36.0 Pulse 74 Resp 18 B/P (MAP) 160/80 (106) O2 Delivery Room Air Capillary Refill : Height, Weight, BMI Height: 5'0" Weight: 160lbs. 0.0oz. [id number]; 23.90 BMI Method:Stated General Appearance: WD/WN, no apparent distress HEENT: PERRL/EOMI, normal ENT inspection, TMs normal, pharynx normal Neck: non-tender, full range of motion, supple, normal inspection Respiratory: chest non-tender, lungs clear, normal breath sounds, no respiratory distress, no accessory muscle use Cardiovascular: regular rate, rhythm, no edema, no murmur Gastrointestinal: normal bowel sounds, non tender, soft; No distended, No guarding, No rebound Back: normal inspection, no CVA tenderness, no vertebral tenderness Extremities: normal range of motion, non-tender, normal inspection, no pedal edema, no calf tenderness, normal capillary refill Neurologic/Psychiatric: no motor/sensory deficits, alert, other (moans, answers some questions) Skin: normal color, warm/dry Lymphatic: no adenopathy Progress/Results/Core Measures Results/Orders Lab Results Laboratory Tests Test 03/29/21 09:30 03/29/21 10:40 Range/Units White Blood Count 7.7 4.3-11.0 10^3/uL Red Blood Count 3.63 L 3.80-5.11 10^6/uL Hemoglobin 11.0 L 11.5-16.0 g/dL Hematocrit 35 35-52 % Mean Corpuscular Volume 96 80-99 fL Mean Corpuscular Hemoglobin 30 25-34 pg Mean Corpuscular Hemoglobin Concent 32 32-36 g/dL Red Cell Distribution Width 15.4 H 10.0-14.5 % Platelet Count 165 130-400 10^3/uL Mean Platelet Volume 10.3 9.0-12.2 fL Immature Granulocyte % (Auto) 1 % Neutrophils (%) (Auto) 75 42-75 % Lymphocytes (%) (Auto) 15 12-44 % Monocytes (%) (Auto) 7 0-12 % Eosinophils (%) (Auto) 2 0-10 % Basophils (%) (Auto) 1 0-10 % Neutrophils # (Auto) 5.8 1.8-7.8 10^3/uL Lymphocytes # (Auto) 1.1 1.0-4.0 10^3/uL Monocytes # (Auto) 0.6 0.0-1.0 10^3/uL Eosinophils # (Auto) 0.1 0.0-0.3 10^3/uL Basophils # (Auto) 0.1 0.0-0.1 10^3/uL Immature Granulocyte # (Auto) 0.1 0.0-0.1 10^3/uL Sodium Level 139 135-145 MMOL/L Potassium Level 4.9 3.6-5.0 MMOL/L Chloride Level 101 98-107 MMOL/L Carbon Dioxide Level 29 21-32 MMOL/L Anion Gap 9 5-14 MMOL/L Blood Urea Nitrogen 36 H 7-18 MG/DL Creatinine 1.37 H 0.60-1.30 MG/DL Estimat Glomerular Filtration Rate 36 BUN/Creatinine Ratio 26 Glucose Level 68 L 70-105 MG/DL Calcium Level 9.3 8.5-10.1 MG/DL Corrected Calcium 9.5 8.5-10.1 MG/DL Total Bilirubin 0.5 0.1-1.0 MG/DL Aspartate Amino Transf (AST/SGOT) 18 5-34 U/L Alanine Aminotransferase (ALT/SGPT) 8 0-55 U/L Alkaline Phosphatase 93 40-136 U/L Total Protein 7.1 6.4-8.2 GM/DL Albumin 3.7 3.2-4.5 GM/DL Urine Color YELLOW Urine Clarity CLEAR Urine pH 7.5 5-9 Urine Specific [place]inda 1.010 L 1.016-1.022 Urine Protein NEGATIVE NEGATIVE Urine Glucose (UA) NEGATIVE NEGATIVE Urine Ketones NEGATIVE NEGATIVE Urine Nitrite NEGATIVE NEGATIVE Urine Bilirubin NEGATIVE NEGATIVE Urine Urobilinogen 0.2 < = 1.0 MG/DL Urine Leukocyte Esterase NEGATIVE NEGATIVE Urine RBC (Auto) TRACE-I H NEGATIVE Urine RBC 5-10 H /HPF Urine WBC RARE /HPF Urine Squamous Epithelial Cells NONE /HPF Urine Crystals NONE /LPF Urine Bacteria NEGATIVE /HPF Urine Casts NONE /LPF Urine Mucus NEGATIVE /LPF Urine Culture Indicated NO My Orders Orders - NICK JULIAN MD Cbc With Automated Diff (03/29/21 09:39) Comprehensive Metabolic Panel (03/29/21 09:39) Ua Culture If Indicated (03/29/21 09:39) Ct Head Wo (03/29/21 09:39) Chest 1 View, Ap/Pa Only (03/29/21 09:39) Vital Signs/I&O 03/29/21 09:29 Temp 36.0 Pulse 74 Resp 18 B/P (MAP) 160/80 (106) O2 Delivery Room Air Progress Progress Note : Progress Note 85-year-old female with above history coming in due to what staff was concerned at her senior living as seizure-like activity. ABCs were intact and vitals are stable on presentation. Physical exam showed an alert, active, moving all extremities, in no acute distress. The patient's daughter who is her power of deputy commonwealth's attorney later came and added to the history. She says that the patient is at her mental baseline. She also says that she does these shaking spells with all extremities that is associated with her Parkinson's per her neurologist. She says this looks exactly like this, and she is not concerned for seizure personally. Basic labs obtained including creatinine near baseline, normal electrolytes, hemoglobin near baseline. Chest x-ray ordered and interpreted by me and appears similar to her prior without any large infiltrate or signs of trauma. CT head ordered and interpreted by me showing no acute bleeding. Overall, the patient is at her baseline, I believe she is stable for discharge back to her senior living. She was discharged with strict return precautions. Of note, the daughter is talking about putting the patient on hospice as her Parkinson's has been advancing very rapidly. Glucose just prior to discharge was 75. Diagnostic Imaging Diagonstic Imaging: Xray (chest), CT (head) Comments [facility] [place], [place] NAME: [facility]ER [facility] REC#: [id number] PT STATUS: REG ER : 1935 PHYSICIAN: NICK JULIAN MD ADMIT DATE: 03/29/21/ER Draft Date of Exam:03/29/21 CHEST 1 VIEW, AP/PA ONLY EXAMINATION: Chest 1 view HISTORY: fall COMPARISON: 03/05/2021 FINDINGS: Stable mild enlargement of the cardiac silhouette. Stable curvilinear opacity in the right upper lobe likely from prior esophagectomy. There are mild interstitial opacities within the lungs. No pleural effusion or pneumothorax. Degenerative changes of the thoracic spine. Osseous structures are otherwise intact. Chronic rib fractures are unchanged. IMPRESSION: 1. Low lung volumes with mild interstitial opacities seen within the lungs which can be seen with atelectasis, pulmonary edema or atypical infection. Dictated on workstation # [id number] Dict: 03/29/21 1010 Trans: 03/29/21 1014 [facility] [id number] Interpreted by: ASHLEY CHAVEZ DO Electronically signed by: [place], [place] NAME: BUSTER [facility]EN [facility] REC#: [id number] PT STATUS: REG ER : 1935 PHYSICIAN: NICK JULIAN MD ADMIT DATE: 03/29/21/ER Draft Date of Exam:03/29/21 CT HEAD WO EXAMINATION: CT head without contrast. TECHNIQUE: Multiple contiguous axial images were obtained through the brain without the use of intravenous contrast. All CT scans use one or more of the following dose optimizing techniques: Automated exposure control, MA and/or KvP adjustment based on patient size and exam type or iterative reconstruction. HISTORY: Seizure. COMPARISON: 03/05/2021. FINDINGS: The schwarz-white matter differentiation is normal. No mass effect or midline shift. There is age related cerebral atrophy with ex vacuo dilation of the ventricles. Periventricular white matter hypoattenuation is in keeping with chronic small vessel ischemic changes. Basilar cisterns are patent. There are no intra- or extra-axial fluid collections. There is no intracranial hemorrhage. The orbits are normal. Paranasal sinuses are normal. Mastoid air cells are clear. No soft tissue abnormality is seen. No osseous lesions or fractures are seen. IMPRESSION: 1. No acute intracranial abnormality. Dictated on workstation # [id number] Dict: 03/29/21 1037 Trans: 03/29/21 1040 [id number] Interpreted by: YUE MONIQUE MD Electronically signed by: Departure Impression Primary Impression: Episode of shaking Additional Impression: Parkinsonian tremor Disposition: 01 HOME, SELF-CARE Condition: Stable Departure-Patient Inst. Decision time for Depature: 11:00 Referrals: LORI ROMERO MD (PCP/Family) Primary Care Physician Patient Instructions: Parkinson Disease (DC), Tremor Add. Discharge Instructions: The patient was seen in the emergency department due to a shaking spell that the staff was concerned was a seizure. We believe this is more related to Parkinson's and is likely just the expected movement that she will have with her advanced disease. Her labs were reassuring including no evidence of infection on chest x-ray, and CT head was normal for her. NICK JULIAN MD Mar 29, 2021 09:30
[2021-03-29 09:48] LABS: BASOPHILS # (AUTO) 0.1 10^3/uL (0.0-0.1); BASOPHILS % (AUTO) 1 % (0-10); EOSINOPHILS # (AUTO) 0.1 10^3/uL (0.0-0.3); EOSINOPHILS % (AUTO) 2 % (0-10); HEMATOCRIT 35 % (35-52); LYMPHOCYTES # (AUTO) 1.1 10^3/uL (1.0-4.0); LYMPHOCYTES % (AUTO) 15 % (12-44); MEAN CORPUSCULAR HEMOGLOBIN 30 pg (25-34); MEAN CORPUSCULAR HGB CONC 32 g/dL (32-36); MEAN CORPUSCULAR VOLUME 96 fL (80-99); MEAN PLATELET VOLUME 10.3 fL (9.0-12.2); MONOCYTES # (AUTO) 0.6 10^3/uL (0.0-1.0); MONOCYTES % (AUTO) 7 % (0-12); NEUTROPHILS # (AUTO) 5.8 10^3/uL (1.8-7.8); NEUTROPHILS % (AUTO) 75 % (42-75); PLATELET COUNT 165 10^3/uL (130-400); WHITE BLOOD COUNT 7.7 10^3/uL (4.3-11.0)
[2021-03-29 10:00] LABS: ALBUMIN 3.7 GM/DL (3.2-4.5); POTASSIUM 4.9 MMOL/L (3.6-5.0)
[2021-03-29 10:01] LABS: CALCIUM 9.3 MG/DL (8.5-10.1)
[2021-03-29 10:03] LABS: TOTAL PROTEIN 7.1 GM/DL (6.4-8.2)
[2021-03-29 10:04] LABS: BILIRUBIN,TOTAL 0.5 MG/DL (0.1-1.0)
[2021-03-29 10:06] LABS: CREATININE SERUM 1.37 MG/DL (0.60-1.30)
--- NOTE | 2021-03-29 10:14 | Diagnostic Imaging Report ---
EXAMINATION: Chest 1 view HISTORY: fall COMPARISON: 03/05/2021 FINDINGS: Stable mild enlargement of the cardiac silhouette. Stable curvilinear opacity in the right upper lobe likely from prior esophagectomy. There are mild interstitial opacities within the lungs. No pleural effusion or pneumothorax. Degenerative changes of the thoracic spine. Osseous structures are otherwise intact. Chronic rib fractures are unchanged. IMPRESSION: 1. Low lung volumes with mild interstitial opacities seen within the lungs which can be seen with atelectasis, pulmonary edema or atypical infection. Dictated by: Dictated on workstation # [id number]
--- NOTE | 2021-03-29 10:41 | Diagnostic Imaging Report ---
EXAMINATION: CT head without contrast. TECHNIQUE: Multiple contiguous axial images were obtained through the brain without the use of intravenous contrast. All CT scans use one or more of the following dose optimizing techniques: Automated exposure control, MA and/or KvP adjustment based on patient size and exam type or iterative reconstruction. HISTORY: Seizure. COMPARISON: 03/05/2021. FINDINGS: The schwarz-white matter differentiation is normal. No mass effect or midline shift. There is age related cerebral atrophy with ex vacuo dilation of the ventricles. Periventricular white matter hypoattenuation is in keeping with chronic small vessel ischemic changes. Basilar cisterns are patent. There are no intra- or extra-axial fluid collections. There is no intracranial hemorrhage. The orbits are normal. Paranasal sinuses are normal. Mastoid air cells are clear. No soft tissue abnormality is seen. No osseous lesions or fractures are seen. IMPRESSION: 1. No acute intracranial abnormality. Dictated by: Dictated on workstation # [id number]
[2021-03-29 10:48] LABS: BILIRUBIN,URINE NEGATIVE (NEGATIVE); CLARITY,URINE CLEAR; COLOR,URINE YELLOW; GLUCOSE, URINE (UA) NEGATIVE (NEGATIVE); KETONES,URINE NEGATIVE (NEGATIVE); LEUKOCYTE ESTERASE ,URINE NEGATIVE (NEGATIVE); NITRITE,URINE NEGATIVE (NEGATIVE); PH,URINE 7.5 (5-9); PROTEIN,URINE NEGATIVE (NEGATIVE)
[2021-03-29 10:54] LABS: BACTERIA,URINE NEGATIVE /HPF; WBC,URINE RARE /HPF
[2021-03-29 11:30] VITALS: BP 124/116
== END 2021-03-29 11:40 | disposition home or self-care (01) ==
LOC: EDUNIT# 09:25 → ER 09:27
DX: G20 Parkinson's disease (principal); I10 Essential (primary) hypertension; F03.90 Unspecified dementia, unspecified severity, without behavioral disturbance, psychotic disturbance, mood disturbance, and anxiety; E11.9 Type 2 diabetes mellitus without complications; Z79.4 Long term (current) use of insulin
CPT/HCPCS: 36415; 51701; 70450; 71045; 80053; 81000; 82947; 85025